=== PATIENT | male | born 1955 | race Caucasian/White ===

== ENCOUNTER 2023-02-14 11:15 | Outpatient (RCR) | payer OTHER, SELFPAY | END 2023-04-21 10:40 | disposition home or self-care (01) | PROVIDERS: PCP Student in an Organized Health Care Education/Training Program; Visit Provider Acupuncturist | DX: I63.9 Cerebral infarction, unspecified (principal); I89.0 Lymphedema, not elsewhere classified; G89.29 Other chronic pain; M79.2 Neuralgia and neuritis, unspecified; I69.359 Hemiplegia and hemiparesis following cerebral infarction affecting unspecified side; R26.81 Unsteadiness on feet; M62.81 Muscle weakness (generalized); R60.0 Localized edema; M79.641 Pain in right hand; M25.511 Pain in right shoulder; Z51.89 Encounter for other specified aftercare | CPT/HCPCS: 92507; 92523; 97110; 97112; 97140; 97161; 97167; 97530; 97535; X5282 ==

== ENCOUNTER 2023-08-11 08:08 | Outpatient (RCR) | payer MEDICARE, BC, SELFPAY ==
[2023-08-11 08:56] LABS: Creatinine* 1.6 mg/dL (0.5-1.5); Est. Creatinine Clearance* 54.14; Estimated Glomerular Filt Rate 46 ml/min
== END 2024-02-07 23:59 | disposition home or self-care (01) ==
LOC: CCIC 08:08
PROVIDERS: Nurse Practitioner; PCP Student in an Organized Health Care Education/Training Program; Referring Provider Student in an Organized Health Care Education/Training Program; Visit Provider Clinical Nurse Specialist
DX: C34.32 Malignant neoplasm of lower lobe, left bronchus or lung (principal)
CPT/HCPCS: 36415; 82565; 99211

== ENCOUNTER 2023-11-19 10:15 | Outpatient (CLI) | payer MEDICARE, BC, SELFPAY ==
--- OUTSIDE RECORDS SUMMARY | 2023-11-22 02:42 | XMS_ITS | Encounter Summary ---
Author Organization [facility] Address [address] [place] [id number] Care Team Providers Care Supervisor Furnace Room Name Role Phone Unavailable Primary Care Provider Unavailabl e Encounter Details Date Type Department Care Team (Late st Contact Info) Description 07/31/2023 Orders Only Department of Radiation Oncology in [place], [place] [address] [place] [id number] Bonita Glover APRN, C.N.P., D.N.P. [address] [place] [address] Malignant Neoplasm Of Lung Lower Lobe Or Bronchus Left (HCC) (Primary Dx) Social History Tobacco Use Types Packs/Day Years Used Date Smoking Tobacco: Every Day Cigarettes 0.8 50.7 Started: 1975 Smokeless Tobacco: Never Alcohol Use Standard Drinks/Week Comments Yes 0 (1 standard drink = 0.6 oz pur e alcohol) 2 drinks/month [facility] Utilities Answer Date Recorded In the past 12 months has e [employer], gas, oil, or water [employer] threatened to shut off services in your [...] your living situation today? I have a [facility] place to live 07/28/2023 Sex and Gender [...]
--- OUTSIDE RECORDS SUMMARY | 2023-11-22 02:42 | XMS_ITS | Encounter Summary ---
Author Organization [facility] Address [address] [place] [address] Care Team Providers Care Enterprise Account Executive Name Role Phone Unavailable Primary Care Provider Unavailabl e Encounter Details Date Type Department Care Team (Late st Contact Info) Description 08/20/2023 Documentation Department of Radiation Oncology in [place], [place] [address] [place] [phone] Kev Hoffmann M.D. [address] [place] [address] Social History Tobacco Use Types Packs/Day Years Used Date Smoking Tobacco: Every Day Cigarettes 0.8 50.7 Started: 1973 Smokeless Tobacco: Never Alcohol Use Standard Drinks/Week Comments Yes 0 (1 standard drink = 0.6 oz pur e alcohol) 2 drinks/month [facility] Utilities Answer Date Recorded In the past 12 months has [employer], gas, oil, or water [employer] threatened to shut off services in your [...] your living situation today? I have a [facility] place to live 07/28/2023 Sex and [...] Left (HCC) Attending Physician: Kev Hoffmann M.D. ([phone]) Treatment Intent: Curative Concomitant Therapy: None Single Plan Treatment Course: [id number] Plan ID Fractions Dose / Fraction (cGy) Dose Treated (cGy) Dose Planned (cGy) First Treatment Last Treatment Elapsed Days [id number] 1000 5000 5000 08/14/2023 08/20/2023 6 Course [...] 3 months. We will schedule CT at [facility]. Dr. Hofmfann will follow up with patient soon after CT has been completed. Signed by: Fidelina Avilez R.N., 08/26/2023 3:57 PM CDT [facility] [address] [place], [place] [id number] documented in this encounter Plan of Treatment Not on file documented as of this encounter Visit Diagnoses Diagnosis Malignant Neoplasm Of Lung Lower Lobe Or Bronchus Left (HCC)- Primary documented in this encounter
--- OUTSIDE RECORDS SUMMARY | 2023-11-22 02:42 | XMS_ITS | Clinical Summary ---
Author Organization [facility] Address [address] [place] [address] Care Team Providers Care Nurse Researcher Name Role Phone Unavailable Primary Care Provider Unavailabl e Source Comments Patient records contain information from all sites at [facility]. For routine questions regarding patient records, call [phone] during business hours, M-F 8:00 AM - 5:00 PM Central Time. Record requests for emergency care only can be directed to [phone] at any time.[facility] Allergies No known active allergies Medications Medication [...] Date Type Department Care Team Description 11/19/2023 Clinical Communication Department of Radiation Oncology in [place], [place] [address] [place] [phone] Jennifer Gaona P.A.-Claudio., M.S. 08/19/2023 10:59 AM CDT - 09/02/2023 7:04 PM CDT Hospital Encounter Department of Radiation Oncology in [address] [address] Kev Hoffmann M.D. Malignant Neoplasm Of Lung Lower Lobe Or Bronchus Left (HCC) from Last 3 Months Family History Medical [...] 0.6 oz pur e alcohol) 2 drinks/month [facility] Utilities Answer Date Recorded In the past 12 months has [employer], [employer], oil, or water [employer] threatened to shut off services in your [...] your living situation today? I have a [facility] place to live 07/28/2023 Sex and [...] T Respiratory Rate 20 04/14/2011 6:10 PM DIRECTOR PROSPECT Oxygen Saturation - - Inhaled Oxygen Concentration - - Weight 107 kg (235 lb 14.3 oz) 08/11/2023 10:13 AM CDT Height - - Body Mass Index - - Plan of Treatment Health Maintenance Due Date [...] Additional history exists Potassium Level 11/05/2024 11/06/2023, 09/25, 06/26/2023, Additional history exists Fasting Glucose for [...] CT BODY Routine 11/12/2023 11:10 AM CDT HXZZORDERS Routine 08/14/2011 2:46 PM [...] System IMG CT PROCEDURES Performing Organization Address City/[facility]/ZIP Co de Phone Number IIWA NA * HXZZORDERS (08/14/2011 2:46 PM CDT) HXHep C Ab-Brandywine Negative Negative POWERCHART Comment: Ouhbam-tz-rkyyrt ratio is <1.00. Test Performed by: [place] [address] Java Sdet: Octavio Harris III, M.D. Blood 08/14/2011 2:46 PM CDT Maria E Gutierres P.A.-C. LAB HISTORICAL O RDERS Performing Organization Address [facility] Co de Phone Number POWERCHART * CT Abdomen without IV Contrast (07/27/2006 4:40 AM CDT) Anatomical Region Laterality Modality Abdomen N/A Computed Tomogra phy 07/27/2006 4:40 AM CDT Narrative 07/27/2006 4:40 AM CDT Originally Signed By Contributor_system, [facility]_HX_RAD_SYS INDICATION: ??Right abdominal back pain. CT [...] Vic Edmonds - 07/31/2016 Originally Signed By Contributor_system, [facility]_SYS INDICATION: Right abdominal back pain. CT OF THE ABDOMEN AND PELVIS - 07/27/06: Noncontrast CT of the abdomen and pelvis is negative for renal or ureteral stones. A normal appendix is identified. There are aortoiliac vascular calcifications. Examination is otherwise unremarkable. REPORT SIGNATURE ON FILE 07/30/2006 Reported By: Neymar Graham M.D. Signed By: Neymar Graham MD Transcribed: 07/28/2006 ([id number]) [email or web address].AL CC: Marko Foster MD Historical Provider IMG CT PROCEDURES from Last 3 Months or Most Recently Relevant to Health Maintenance
--- OUTSIDE RECORDS SUMMARY | 2023-11-22 02:42 | XMS_ITS ---
Author Organization [facility] Address [address] [place] [address] Care Team Providers Care Hook And Eye Attacher Name Role Phone Unavailable Unavailable Unavailable Surgery Details Not on file Complications Check Surgery Details section. Procedure Estimated Blood Loss Check Surgery Details section. Procedure Findings Check Surgery Details section. Procedure Specimens Taken Check Surgery Details section.
--- OUTSIDE RECORDS SUMMARY | 2023-11-22 02:42 | XMS_ITS | Clinical Summary ---
Author Organization [facility] Address [address] [place] [address] Phone Care Team Providers Care Manager Market Intelligence Name Role Phone Dorinda Washington DO Primary Care Provider [phone] Encounters Date Type Department Care Team Description 09/22/2023 Documentation Only [facility] [place] [address] [place] [address] No, Pcp from Last 3 Months [...] [facility] [place] [address] [place] [address] Feliciano Soria MD [address] [facility] [phone] Health Maintenance Due Date Last Done Comments [...] CDT) Glycosylated Hemoglobin a1C 6.9(H) <5.7 % [facility] Estimated Average Glucose 151(H) <117 mg/dL [facility] 07/03/2018 9:46 AM CDT Magdaleno Ernst MD LAB BLOOD ORDERABLES [facility] from Last 3 Months or Most Recently Relevant to Health Maintenance Care Teams Manager Market Intelligence Relationship Specialty Start Date End Date Dorinda Washington DO [address] [place] [address] PCP - General Family Medicine 09/22/23
--- OUTSIDE RECORDS SUMMARY | 2023-11-22 02:42 | XMS_ITS | Encounter Summary ---
Author Organization [facility] Address [address] [place] [address] Care Team Providers Care Tapper Shank Name Role Phone Unavailable Primary Care Provider Unavailabl e Reason for Referral * Outpatient (Routine) - Authorized Specialty Diagnoses / Procedures Referred By Laila t Referred To Contact Radiation Oncology Jennifer Gaona P.A.-C., M.SKenyatta [address] [place] [phone] Kev Hoffmann M.D. [address] [place] [phone] Referral ID Status Reason Start Date Expiration Date V isits Requested Visits Authorized [id number] Authorized 11/19/2023 05/20/2025 [address] chest prior at [facility] [place] [facility] in [place]; need appointments at the end of January prior to patient's planned travel in early February * MRI/CAT/PET Scan (Routine) - Authorized Specialty Diagnoses / Procedures Referred By Contcarlos t Referred To Contact Radiology Diagnoses Malignant Neoplasm Of Lung Lower Lobe Or Bronchus Left (HCC) Procedures CT Chest without IV Contrast Jennifer Gaona P.A.-C., M.S. [address] [place] [address] [facility] Referral ID Status Reason Start Date Expiration Date V isits Requested Visits Authorized [id number] Authorized 11/19/2023 11/18/2024 1 1 Encounter Details Date Type Department Care Team (Late st Contact Info) Description 11/19/2023 Clinical Communication Department of Radiation Oncology in [place], [place] [address] [place] [phone] Jennifer Gaona P.A.-C., M.S. [address] [place] [address] Social History Tobacco Use Types Packs/Day Years Used Date Smoking Tobacco: Every Day Cigarettes 0.8 50.7 Started: 1975 Smokeless Tobacco: Never Alcohol Use Standard Drinks/Week Comments Yes 0 (1 standard drink = 0.6 oz pur e alcohol) 2 drinks/month [facility] Utilities Answer Date Recorded In the past 12 months has [employer], [employer], oil, or water [employer] threatened to shut off services in your [...] your living situation today? [facility] a [facility] to live 07/28/2023 Sex and Gender Information Value Date Recorded Sex Assigned at Male 07/28/2023 10:23 AM CDT Gender Identity Male 07/28/2023 10:23 AM CDT Sexual Orientation Not on file documented as of this encounter Miscellaneous Notes * Telephone Encounter - Jennifer Gaona P.A.-C., M.S. - 11/19/2023 3:15 PM CDT The patient was scheduled for a visit here today; however, we received notification that he was being admitted for stroke evaluation. His , Gracia, still wanted to receive an update regarding the patient's lung cancer. I called her today and spoke to her directly (authorization is on file). I reviewed that his current evaluation takes priority over our scheduled visit. We discussed his recent CT chest report that demonstrated decreased conspicuity/size of the left lower lobe pulmonary nodule,now measuring 7 mm compared to [address] Hoffmann has reviewed this as well and we discussed that this is a good result following SBRT at this time. We discussed the option of re-scheduling our visit after the patient's admission, but she was unsure if they would want to re-schedule now or just wait until the next visit. If they decide to re-schedule, she will call our clinic. Otherwise, we discussed Dr. Hoffmann's recommendation for another CT chest without IV contrast to be done in 3 months.We will order for the imaging to be done at [facility] [place] [facility] in [place]. We will also order for a return visit to be scheduled here following the imaging to review the result. She asked for the next visits to be scheduled at the end of January as they have travel planned in early February. Gracia will review this information with Mr. He and they will contact us back with any further questions, concerns, or to re- schedule his visit. She verbally expressed her understanding of the plan. I wis hed Mr. He well with his current medical condition. I also reviewed this information with Dr. Hoffmann who was in agreement. Jennifer Gaona P.A.-C., M.S. documented in this encounter Plan of Treatment Scheduled Orders Name Type Priority Associated Diagnoses Orde r Schedule CT Chest without IV Contrast Imaging RAD - Routine (most inpatients and all outpatients) Malignant Neoplasm Of Lung Lower Lobe Or Bronchus Left (HCC) Expected: 02/16/2024, Expires: 02/17/2025 Scheduled Referrals Name Type Priority Associated Diagnoses Orde r Schedule Radiation Oncology office visit (clinic) Outpatient Referral Routine Expected: 02/17/2024, Expires: 02/17/2025 documented as of this encounter Visit Diagnoses Diagnosis Malignant Neoplasm Of Lung Lower Lobe Or Bronchus Left (HCC)- Primary documented in this encounter
--- OUTSIDE RECORDS SUMMARY | 2023-11-22 02:42 | XMS_ITS | Encounter Summary ---
Author Organization [facility] Address [address] [place] [address] Care Team Providers Care Disc Pad Grinding Machine Feeder Name Role Phone Unavailable Primary Care Provider Unavailabl e Encounter Details Date Type Department Care Team (Latest Contact Info) Description 08/18/2023 11:05 AM CDT - 08/18/2023 11:59 PM CDT Hospital Encounter Department of Radiation Oncology in [place], [place] [address] [place] [phone] Kev Hoffmann M.D. [address] [place] [address] Discharge Disposition: Home or Self Care Social History Tobacco Use Types Packs/Day Years Used Date Smoking Tobacco: Every Day Cigarettes 0.8 50.7 Started: 1975 Smokeless Tobacco: Never Alcohol Use Standard Drinks/Week Comments Yes 0 (1 standard drink = 0.6 oz pur e alcohol) 2 drinks/month [facility] Utilities Answer Date Recorded In the past 12 months has [employer], oil, or water [employer] threatened to shut off services in your [...] your living situation today? I have a [facility] place to live 07/28/2023 Sex and [...]
--- OUTSIDE RECORDS SUMMARY | 2023-11-22 02:42 | XMS_ITS ---
Author Organization [facility] Address [address] [place] [address] Care Team Providers Care Utilization Management Um Nurse Name Role Phone Unavailable Primary Care Provider [...] Treated Prescribed Fraction Dose Prescribed Total Dose [id number] 08/20/2023 6 5 of 5 1,000 cGy 5,000 cG y Reference Point Last Treated On Elapsed Days Session Dose Total Dose [id number] 08/20/2023 6 1,000 cGy 5,000 cGy
--- OUTSIDE RECORDS SUMMARY | 2023-11-22 02:42 | XMS_ITS | Encounter Summary ---
Author Organization [facility] Address [address] [place] [address] Care Team Providers Care Watch Dial Stoner Name Role Phone Unavailable Primary Care Provider Unavailabl e Reason for Referral * Outpatient (Routine) - Authorized Specialty Diagnoses / Procedures Referred By Laila t Referred To Contact Radiation Oncology Kev Hoffmann M.D. 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 [address] [place] [address] [facility] Region Referral ID Status Reason Start Date Expiration Date V isits Requested Visits Authorized [id number] Authorized 07/30/2023 07/29/2024 10 10 Encounter Details Date Type Department Care Team (Latest Contact Info) Description 08/19/2023 10:59 AM CDT - 09/02/2023 7:04 PM CDT Hospital Encounter Department of Radiation Oncology in [place], [place] [address] [place] [address] Kev Hoffmann M.D. 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 I have a [facility] place to live 07/28/2023 Sex [...] 81 mg. 08/14/2022 blood sugar diagnostic strips ([employer] Verio test strips) Dispense item covered by [...] Left (HCC) SUPERVISED BY: Kev Hoffmann M.D. ([id number]) HISTORY OF PRESENT ILLNESS Chato He is a 68 y.o. 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 Patient is receiving SBRT to left lower lung. Treatment Course: 1xLungLowrSBRT Plan ID Fractions Dose / Fraction (cGy) Dose Treated (cGy) Dose Planned (cGy) First Treatment Last Treatment Elapsed Days [id number] 1000 4000 5000 08/14/2023 08/19/2023 5 Course [...] 3 months. We will schedule CT at [facility]. Dr. Hoffmann will follow [...] a CT scan of the chest at [facility] in [place]. He can contact us in the interim with questions or concerns. He verbalized satisfaction with this plan. Signed by: Kev Hoffmann M.D. 09/02/2023 7:03 PM CDT [facility] [address] [place] [address] documented in this encounter Miscellaneous Notes * Addendum Note - Claritza Luna C.NBart - 08/19/2023 12:00 PM CDTEncounter addended by: Claritza Luna C.NBart on: 09/03/2023 8:22 AM Actions taken: Letter [...]
--- OUTSIDE RECORDS SUMMARY | 2023-11-22 02:42 | XMS_ITS | Encounter Summary ---
Author Organization [facility] Address [address] [place] [address] Care Team Providers Care Sliding Joint Maker Name Role Phone Dorinda Washington DO Primary Care Provider [phone] Encounter Details Date Type Department Care Team (Late st Contact Info) Description 09/22/2023 Documentation Only [facility] [address] [place] [address] [address] No, [...] Visit [facility] [address] [place] [address] Feliciano Soria MD [address] [place] [address] documented as of this encounter Visit Diagnoses Not on filedocumented in this encounter Care Teams Sliding Joint Maker Relationship Specialty Start Date End Date Dorinda Washington DO [address] [place] [address] PCP - General Family Medicine 09/22/23 documented as of this encounter
--- OUTSIDE RECORDS SUMMARY | 2023-11-22 02:42 | XMS_ITS | Clinical Summary ---
Author Organization [facility] Address [address] [address] Phone Care Team Providers Care Comic Book Artist Name Role Phone Unavailable Primary Care [...] NEEDED FOR DIZZINESS 06/17/2022 Active HYDROcodone-acetami nophen ([place]) 5-325 MG oral tablet Take 0.5-1 Tablets [...] W/POSSIBLE INTERVENTION; Surgeon: Durga Fernandez MBBS; Location: [facility] Social History Tobacco [...] - 5.6 % 2022 4:23 AM CDT [facility] Estimated Average Glucose 174 mg/dL 2022 4:23 AM CDT [facility] Blood BLOOD SPECIMEN / Unknown Venipuncture / Unknown 2022 3:59 AM CDT 2022 4:07 AM CDT Narrative [facility] - 2022 4:23 AM CDT HGA1C Reference Ranges ??>= 6.5 ?? Diabetes* ??5.7-6.4 ??Impaired glucose tolerance ?? <5.7 ?Normal *In the absence of unequivocal hyperglycemia, results should be confirmed by repeat testing for the diagnosis of diabetes. [place] [employer] 2018 ?? Herman Snow DO EC CHEMISTRY ORDER PAN ABN [facility] [address] [place] [address], [facility] * (ABNORMAL) LIPID PANEL (2022 3:59 AM CDT) [facility] Signature Cholesterol 186 0 - 200 mg/dL 2022 4:29 AM CDT [facility] HDL Cholesterol 40(L) >40 mg/dL 4:29 AM CDT [facility] Non-HDL Cholesterol 146(H) 0 - 130 mg/dL 2022 4:29 AM CDT [facility] Triglycerides 164 <175 mg/dL 2022 4:29 AM CDT [facility] LDL Cholesterol, Calculated 113(H) 0 - 100 mg/dL 2022 4:29 AM CDT [facility] Blood BLOOD SPECIMEN / Unknown Venipuncture / Unknown 2022 3:59 AM CDT 2022 4:15 AM CDT Narrative [facility] - 2022 4:29 AM [...] Snow DO EC CHEMISTRY ORDER PAN ABN [facility] [address] [place] [address], [facility] from Last 3 Months or Most Recently Relevant to Health Maintenance Advance Directives For more information, please contact: [phone] * Full Code (Latest Code Status on File) Date Activated Date Inactivated Comments 08/03/2022 4:23 PM 08/14/2022 3:22 PM * Full Code/Unaddressed Date Activated Date Inactivated Comments 08/03/2022 1:07 PM 08/03/2022 4:23 PM
--- OUTSIDE RECORDS SUMMARY | 2023-11-22 02:42 | XMS_ITS | Encounter Summary ---
Author Organization [facility] Address [address] [place] [address] Care Team Providers Care Dip Filler Name Role Phone Unavailable Primary Care Provider Unavailabl e Encounter Details Date Type Department Care Team (Latest Contact Info) Description 08/20/2023 10:31 AM CDT - 08/20/2023 11:59 PM CDT Hospital Encounter Department of Radiation Oncology in [place], [place] [address] [place] [address] Kev Hoffmann M.D. [address] [place] [address] Discharge Disposition: Home or Self Care Social History Tobacco Use Types Packs/Day Years Used Date Smoking Tobacco: Every Day Cigarettes 0.8 50.7 Started: 1975 Smokeless Tobacco: Never Alcohol Use Standard Drinks/Week Comments Yes 0 (1 standard drink = 0.6 oz pur e alcohol) 2 drinks/month [facility] Utilities Answer Date Recorded In the past 12 months has [employer], oil, or water [employer] threatened to shut off services in your [...] your living situation today? I have a [facility] place to live 07/28/2023 Sex [...]
--- OUTSIDE RECORDS SUMMARY | 2023-11-22 02:42 | XMS_ITS | Referral Summary ---
Author Organization [facility] Address [address] [place] [address] Care Team Providers Care Radiographer Mammographer Name Role Phone Yousuf Bernard MD Primary Care Provider [phone] Abrahan Bower MD Unavailable [phone] Allergies No known active allergies Medications Medication [...] on file Medical Devices Implanted Type Area In Classroom Tutor Device Identifier Shelf Expiration Date Model / Serial / Lot Polaris Ultra [id number] Implanted:Qty : 1 on 10/04/2022 by Abrahan Bower MD at [facility] Right: [employer] [place] [id number] 08/01/2025 [id number] / / [id number] Polaris Ultra 5f X 28cm Implanted:Qty : 1 on 10/04/2022 by Abrahan Bower MD at [facility] Left: [employer] [place] [id number] 08/01/2025 [id number] 40 / / [id number] Explanted Type Area In Classroom Tutor Device Identifier Shelf Expiration Date Model / Serial / Lot Polaris Ultra, 5f X28cm Implanted:Qty: 1 on 09/16/2022 by Abrahan Bower MD at [facility] Explanted:Qty: 1 on 10/04/2022 by Abrahan Bower MD at [facility] Left: [employer] 05/22/2025 [id number] / / [id number] Polaris Ultra, 5f X28cm Implanted:Qty: 1 on 09/16/2022 by Abrahan Bower MD at [facility] Explanted:Qty: 1 on 10/04/2022 by Abrahan Bower MD at [facility] Right: [employer] 05/22/2025 [id number] / / [id number] Procedures Procedure Name Priority Date/Time Associated Diagnosis [...] Bower MD LAB - [facility] Lab [address] Lab (1st floor, no room number) [place] [address], [facility] [phone] * (ABNORMAL) Basic metabolic panel (09/18/2022 12:33 PM CDT) [facility] Sodium 139 136 - 145 mmol/L 09/18/2022 [...] MD LAB - BLOOD ORDERA BLES LABORATORY [facility] Acute Care Lab [address] Lab (1st floor, no room number) [place] [address], [facility] [phone] * Lipid panel (07/12/2020 9:47 AM CDT) [facility] Signature Cholesterol 163 <200 mg/dL 07/12/2020 11:10 AM CDT [facility] Triglycerides 126 <150 mg/dL 07/12/2020 11:05 AM CDT [facility] HDL Cholesterol 42 >39 mg/dL 11:05 AM CDT [facility] LDL Cholesterol Calculated 96 <100 mg/dL 07/12/2020 11:10 AM CDT [facility] Comment:Desirable: <100 mg/d l Non HDL Cholesterol 121 <130 mg/dL 07/12/2020 11:10 AM CDT [facility] Blood 07/12/2020 9:47 AM CDT 07/12/2020 10:33 AM CDT Yousuf Bernard MD LAB - BLOOD ORDERABL ES [facility] [address] [address], [facility] [phone] from Last 3 Months or Most Recently Relevant to Health Maintenance Advance Directives For more information, please contact: [phone] * Full Code (Latest Code Status on File) Date Activated Date Inactivated Comments 09/16/2022 2:18 AM 09/17/2022 2:28 PM All basic an d advanced life-sustaining interventions are performed as appropriate Question Answer Comments Code status determined by: Discussion with patie nt/ legal decision maker Care Teams Radiographer Mammographer Relationship Specialty Start Date End Date Yousuf Bernard MD [facility] [address] [facility] [address] [place] [address] PCP - General Family Medicine 06/16/22 Abrahan Bower MD [address] [facility] [address] [place] [address] Assigned Surgical Provider 10/12/22
--- OUTSIDE RECORDS SUMMARY | 2023-11-22 02:42 | XMS_ITS | Encounter Summary ---
Author Organization [facility] Address [address] [place] [address] Care Team Providers Care Tongue And Groove Machine Setter Name Role Phone Unavailable Primary Care Provider Unavailabl e Encounter Details Date Type Department Care Team (Latest Contact Info) Description 08/14/2023 3:02 PM CDT - 08/14/2023 11:59 PM CDT Hospital Encounter Department of Radiation Oncology in [place], [place] [address] [place] [address] Kev Hoffmann M.D. [address] [place] [address] Discharge Disposition: Home or Self Care Social History Tobacco Use Types Packs/Day Years Used Date Smoking Tobacco: Every Day Cigarettes 0.8 50.7 Started: 1975 Smokeless Tobacco: Never Alcohol Use Standard Drinks/Week Comments Yes 0 (1 standard drink = 0.6 oz pur e alcohol) 2 drinks/month [facility] Utilities Answer Date Recorded In the past 12 months has [employer], oil, or water [employer] threatened to shut off services in your [...] your living situation today? I have a [facility] place to live 07/28/2023 Sex and [...]
--- OUTSIDE RECORDS SUMMARY | 2023-11-22 02:42 | XMS_ITS | Clinical Summary ---
Author Organization [facility] Address [address] [place] [address] Care Team Providers Care Stock Clipper Name Role Phone Yousuf Bernard MD Primary Care Provider [phone] Abrahan Bower MD Unavailable [phone] Allergies No known active allergies Medications Medication [...] this topic Medical Devices Implanted Type Area Paint Trimmer Pipe Bowls Device Identifier Shelf Expiration Date Model / Serial / Lot Polaris Ultra [id number] Implanted:Qty : 1 on 10/04/2022 by Abrahan Bower MD at [facility] Right: [employer] [place] [id number] 08/01/2025 [id number] / / [id number] Polaris Ultra 5f X 28cm Implanted:Qty : 1 on 10/04/2022 by Abrahan Bower MD at [facility] Left: [employer] [place] [id number] 08/01/2025 [id number] / / [id number] Explanted Type Area Paint Trimmer Pipe Bowls Device Identifier Shelf Expiration Date Model / Serial / Lot Polaris Ultra, 5f X28cm Implanted:Qty: 1 on 09/16/2022 by Abrahan Bower MD at [facility] Explanted:Qty: 1 on 10/04/2022 by Abrahan Bower MD at [facility] Left: [employer] 05/22/2025 [id number] / / [id number] Polaris Ultra, 5f X28cm Implanted:Qty: 1 on 09/16/2022 by Abrahan Bower MD at [facility] Explanted:Qty: 1 on 10/04/2022 by Abrahan Bower MD at [facility] Right: [employer] 05/22/2025 [id number] / / [id number] Procedures Procedure Name Priority Date/Time Associated Diagnosis [...] by meter (10/04/2022 10:23 AM CDT) Pathologist [facility] GLUCOSE BY METER POCT 174(H) 70 - 99 mg/dL 10/04/2022 10:29 AM CDT [facility] LABORATORY POC Blood, Capillary BLOOD SPECIMEN / Unknown 10/04/2022 10:23 AM CDT 10/04/2022 10:29 AM CDT Abrahan Bower MD LAB - BEAKER PO CT [facility] LABORATORY POC [facility] Acute Care Lab [address] Lab (1st floor, no room number) [place] [address], [facility] [phone] * (ABNORMAL) Basic metabolic panel (09/18/2022 12:33 [...] Shipley MD LAB - BLOOD ORDERA BLES [facility] Acute Care Lab [address] Lab (1st floor, no room number) [place] [address], [facility] [phone] * Lipid panel (07/12/2020 9:47 AM CDT) Cholesterol 163 <200 mg/dL 07/12/2020 11:10 AM CDT [facility] Triglycerides 126 <150 mg/dL 07/12/2020 11:05 AM CDT [facility] HDL Cholesterol 42 >39 mg/dL 11:05 AM CDT [facility] LDL Cholesterol Calculated 96 <100 mg/dL 07/12/2020 11:10 AM CDT [facility] Comment:Desirable: <100 mg/d l Non HDL Cholesterol 121 <130 mg/dL 07/12/2020 11:10 AM CDT [facility] Blood 07/12/2020 9:47 AM CDT 07/12/2020 10:33 AM CDT Yousuf Bernard MD LAB - BLOOD ORDERABL ES Performing Organization Address City/[facility]/ZIP Co de Phone Number [facility] [address] [place] [address], [facility] [phone] from Last 3 Months or Most Recently Relevant to Health Maintenance Advance Directives For more information, please contact: [phone] * Full Code (Latest Code Status on File) Date Activated Date Inactivated Comments 09/16/2022 2:18 AM 09/17/2022 2:28 PM All basic an d advanced life-sustaining interventions are performed as appropriate Question Answer Comments Code status determined by: Discussion with laurene nt/ legal decision maker Care Teams Stock Clipper Relationship Specialty Start Date End Date Yousuf Bernard MD [facility] [address] [facility] [address] [place], [place] [address] PCP - General Family Medicine 06/16/22 Abrahan Bower MD [address] [facility] [address] [place] [address] Assigned Surgical Provider 10/12/22
--- OUTSIDE RECORDS SUMMARY | 2023-11-22 02:42 | XMS_ITS | Encounter Summary ---
Author Organization [facility] Address [address] [place] [address] Care Team Providers Care Lead Application Architect Name Role Phone Dorinda Washington DO Primary Care Provider [phone] Encounter Details Date Type Department Care Team (Late st Contact Info) Description 03/01/2019 Orders Only [facility] [address] [place] [address] Deborah Peres RN Chronic kidney disease, Stage III (moderate) ([facility]) Social History Tobacco Use Types Packs/Day Years [...] [facility] [address] [place] [address] Feliciano Soria MD [address] [place] [address] documented as of this encounter Visit Diagnoses Diagnosis Chronic kidney disease, Stage III (moderate) documented in this encounter Care Teams Lead Application Architect Relationship Specialty Start Date End Date Dorinda Washington DO [address] [place] [address] PCP - General Family Medicine 09/22/23 documented as of this encounter
--- OUTSIDE RECORDS SUMMARY | 2023-11-22 02:42 | XMS_ITS | Encounter Summary ---
Author Organization [facility] Address [address] [place] [address] Care Team Providers Care Wood Products Manufacturer Name Role Phone Unavailable Primary Care Provider Unavailabl e Encounter Details Date Type Department Care Team (Latest Contact Info) Description 08/19/2023 10:58 AM CDT Hospital Encounter Department of Radiation Oncology in [place], [place] [address] [place] [address] Kev Hoffmann M.D. [address] [place] [address] Discharge Disposition: Home or Self Care Social History Tobacco Use Types Packs/Day Years Used Date Smoking Tobacco: Every Day Cigarettes 0.8 50.7 Started: 1975 Smokeless Tobacco: Never Alcohol Use Standard Drinks/Week Comments Yes 0 (1 standard drink = 0.6 oz pur e alcohol) 2 drinks/month [facility] Utilities Answer Date Recorded In the past 12 months has [employer], gas, oil, or water [employer] threatened to shut off services in your [...] your living situation today? I have a [facility] place to live 07/28/2023 Sex and Gender [...]
--- OUTSIDE RECORDS SUMMARY | 2023-11-22 02:42 | XMS_ITS | Encounter Summary ---
Author Organization [facility] Address [address] [place] [address] Care Team Providers Care Resaw Operator Name Role Phone Unavailable Primary Care Provider Unavailabl e Encounter Details Date Type Department Care Team (Latest Contact Info) Description 08/15/2023 10:01 AM CDT - 08/15/2023 11:59 PM CDT Hospital Encounter Department of Radiation Oncology in [place], [place] [address] [place] [address] Kev Hoffmann M.D. [address] [place] [address] Discharge Disposition: Home or Self Care Social History Tobacco Use Types Packs/Day Years Used Date Smoking Tobacco: Every Day Cigarettes 0.8 50.7 Started: 1975 Smokeless Tobacco: Never Alcohol Use Standard Drinks/Week Comments Yes 0 (1 standard drink = 0.6 oz pur e alcohol) 2 drinks/month [facility] Utilities Answer Date Recorded In the past 12 months has [employer], oil, or water [employer] threatened to shut off services in your [...] your living situation today? I have a [facility] place to live 07/28/2023 Sex [...]
--- OUTSIDE RECORDS SUMMARY | 2023-11-22 02:42 | XMS_ITS | Encounter Summary ---
Author Organization [facility] Address [address] [place] [address] Care Team Providers Care Turkish Line Attendant Name Role Phone Unavailable Primary Care Provider Unavailabl e Encounter Details Date Type Department Care Team (Late st Contact Info) Description 08/20/2023 Clinical Communication Department of Radiation Oncology in [place], [place] [address] [place] [phone] Kev Hoffmann M.D. [address] [place] [address] Social History Tobacco Use Types Packs/Day Years Used Date Smoking Tobacco: Every Day Cigarettes 0.8 50.7 Started: 1975 Smokeless Tobacco: Never Alcohol Use Standard Drinks/Week Comments Yes 0 (1 standard drink = 0.6 oz pur e alcohol) 2 drinks/month [facility] Utilities Answer Date Recorded In the past 12 months has [employer], gas, oil, or water [employer] threatened to shut off services in your [...] your living situation today? I have a [facility] place to live 07/28/2023 Sex [...] (cGy) First Treatment Last Treatment Elapsed Days [id number] 1000 5000 5000 08/14/2023 08/20/2023 6 Course [...] symptoms. They would like a call at [phone] documented in this encounter Plan of Treatment Not on file documented as of this encounter Visit Diagnoses Not on filedocumented in this encounter
--- OUTSIDE RECORDS SUMMARY | 2023-11-22 02:42 | XMS_ITS | Referral Summary ---
Author Organization [facility] Address [address] [place] [address] Care Team Providers Care Spot Man Name Role Phone Unavailable Primary Care Provider Unavailabl e Source Comments Patient records contain information from all sites at [facility]. For routine questions regarding patient records, call [phone] during business hours, M-F 8:00 AM - 5:00 PM Central Time. Record requests for emergency care only can be directed to [phone] at any time.[facility] Encounters Date Type Department Care Team Description 11/19/2023 Clinical Communication Department of Radiation Oncology in [place], [place] [address] [place] [phone] Jennifer Gaona PRosales.-C., M.S. 08/19/2023 10:59 AM CDT - 09/02/2023 7:04 PM CDT Hospital Encounter Department of Radiation Oncology in [address] [address] Kev Hoffmann M.D. Malignant Neoplasm Of Lung Lower Lobe Or Bronchus Left (HCC) from Last 3 Months Allergies No known [...] Recorded In the past 12 months has [employer], gas, oil, or water [employer] threatened to shut off services in your [...] your living situation today? I have a [facility] place to live 07/28/2023 Sex [...] T Respiratory Rate 20 04/14/2011 6:10 PM BIT AND SHANK DEPARTMENT SUPERVISOR Oxygen Saturation - - Inhaled Oxygen Concentration - - Weight 107 kg (235 lb 14.3 oz) 08/11/2023 10:13 AM CDT Height - - Body Mass Index - - Plan of Treatment Not on file Procedures Procedure Name Priority Date/Time Associated Diagnosis [...] System IMG CT PROCEDURES Performing Organization Address [facility] Co de Phone Number [facility] NA * HXZZORDERS (08/14/2011 2:46 PM CDT) HXHep C -Beebe Negative Negative POWERCHART Comment: Akxhya-xl-ngcrgk ratio is <1.00. Test Performed by: [place] [address] Pump Servicer Supervisor: Octavio Harris III, M.D. Blood 08/14/2011 2:46 PM CDT Maria E Gutierres P.A.-C. LAB HISTORICAL O RDERS Performing Organization Address [facility] [[email or web address]] de Phone Number POWERCHART * CT Abdomen without IV Contrast (07/27/2006 4:40 AM CDT) Anatomical Region Laterality Modality Abdomen N/A Computed Tomogra phy 07/27/2006 4:40 AM CDT Narrative 07/27/2006 4:40 AM CDT Originally Signed By Contributor_system, [facility]_HX_RAD_SYS INDICATION: ??Right abdominal back pain. CT OF THE ABDOMEN AND PELVIS - 07/27/06: ??Noncontrast CT of the abdomen and pelvis is negative for renal or ureteral stones. ??A normal appendix is identified. ??There are aortoiliac vascular calcifications. Examination is otherwise unremarkable. REPORT SIGNATURE ON FILE 07/30/2006 Reported By: Neymar Graham M.D. Signed By: Neymar Graham MD Transcribed: 07/28/2006 ([id number]) ??[email or web address].AL CC: Marko Foster ?? Procedure Note ProviderGrey M.D. - 07/31/2016 Originally Signed By Contributor_system, [facility]_HX_RAD_SYS INDICATION: Right abdominal back pain. CT [...]
--- OUTSIDE RECORDS SUMMARY | 2023-11-22 02:42 | XMS_ITS | Encounter Summary ---
Author Organization [facility] Address [facility] [place] [address] Care Team Providers Care Window Draper Name Role Phone Yousuf Bernard MD Primary Care Provider [phone] Abrahan Bower MD Unavailable [phone] Reason for Visit * Reason Onset Date Comments Call Back 10/03/2022 Encounter Details Date Type Department Care Team (Late st Contact Info) Description 10/03/2022 Telephone [facility] [place] [address] [place] [address] Abrahan Bower MD [address] [place] [address] Call Back Social History Tobacco [...] on filedocumented in this encounter Care Teams Window Draper Relationship Specialty Start Date End Date Yousuf Bernard MD [facility] [address] [facility] [address] [place] [address] PCP - General Family Medicine 06/16/22 Abrahan Bower MD [address] [facility] [address] [place] [address] Assigned Surgical Provider 10/12/22 documented as of this encounter
--- OUTSIDE RECORDS SUMMARY | 2023-11-22 02:43 | XMS_ITS | Clinical Summary ---
Author Organization [employer] Address [place], [place] [address] Care Team Providers Care Accounting Coordinator Name Role Phone Dorinda Washington DO Primary Care Provider [phone] Whitney Silva MD Unavailable Raisa White PBX MANAGER Unavailable Faith Donovan RN Unavailable Kennedi Perry RN, BSN, OCN Unavailable Mary Mclean PBX MANAGER Unavailable Unavailable Hina Campbell RN Unavailable Jin Shipley MD Unavailable [phone] Han Bradley MD Unavailable Allergies No known active allergies Medications Medication Sig Dispensed Refills Start Date End Date Status aspirin chewable 81 mg chewable tablet Chew 81 mg by mouth once daily with a meal. 08/15/19 23 Suspended fish oil-omega-3 fatty acids 1,000-340 mg capsule Take 1 g by mouth once daily. Suspended amLODIPine (NORVASC) 10 mg tabletIndications:H TN (hypertension) Take 1 Tablet (10 mg) by mouth once daily. 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 Dispense item covered by pt ins. E11.9 NIDDM type II - Test 3 times/day, Reason: High A1C 100 Each 5 02/12/20 23 Suspended Additional Information allopurinoL (ZYLOPRIM) 100 mg tablet Take 50 mg by mouth once daily. 01/08/20 23 024 Suspended sennosides-docusate (SENOKOT S) (8.6-50 mg) tabletIndications:C hronic constipation Use one tablet daily for constipation; use up to 2 tablets twice daily as needed for worsening of constipation 180 Tablet 3 06/11/19 24 024 Discontinued(Ph armacist change per medication history (E-cancel not sent)) amitriptyline (ELAVIL) 10 mg tabletIndications:N europathic pain,Chronic neck pain Take 1 Tablet (10 mg) by mouth at bedtime. For chronic neuropathic/ chronic pain syndrome. 120 Tablet 3 09/02/19 24 Suspended Additional Information diclofenac topical (Voltaren) 1 % gelIndications:Neur opathic pain,Chronic neck pain Apply 4 g topically to affected area(s) four times daily. 2 g 3 09/02/19 24 024 Discontinued(Ot her - add note to specify (E-cancel not sent)) metFORMIN (GLUCOPHAGE) 500 mg tabletIndications:T ype 2 diabetes mellitus with hyperglycemia, 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) Take 1 Tablet (500 mg) by mouth two times daily with meals. 180 Tablet 3 09/10/19 24 Suspended Additional Information semaglutide (Ozempic) 2 mg/dose (8 mg/3 mL) subcutaneous penIndications:Type 2 diabetes mellitus with diabetic 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, unspecified whether intermediate project manager insulin use (HC) Inject 2 mg subcutaneous once weekly. 3 Pen 3 09/10/19 24 Suspended Additional Information HYDROcodone-acetami nophen (5-325 mg/tablet)Indicatio ns:Neuropathic pain Take one tablet by mouth two times a day as needed for pain. Max acetaminophen dose: 4000 mg in 24 hrs. Rx to last 30 days. use dates: 10/13/2023 - 11/11/2023 60 Tablet 10/13/19 24 024 Discontinued(Re order (E-cancel not sent)) lisinopriL (PRINIVIL; ZESTRIL) 20 mg tabletIndications:H TN (hypertension) Take 1 Tablet (20 mg) by mouth two times daily. Take 1/2 tablet (20 mg) twice daily 180 Tablet 3 10/23/19 24 024 Discontinued(Ph armacist change per medication history (E-cancel not sent)) glipiZIDE extended-release (GLUCOTROL XL) 10 mg Extended-Release tabletIndications:T ype 2 diabetes mellitus with diabetic 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, 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) Take 2 Tablets (20 mg) by mouth once daily before a meal. 180 Tablet 1 10/23/19 Suspended Additional Information medication order composer Enzymedica Digestive Enzyme: 1 capsule po daily. Mitocore: 2 tablets po daily. Garden of Life Probiotic 30 billion: 1 capsule po daily. 10/28/19 Suspended HYDROcodone-acetami nophen (5-325 mg/tablet)Indicatio ns:Neuropathic pain Take one tablet by mouth two times a day as needed for pain. Max acetaminophen dose: 4000 mg in 24 hrs. Rx to last 30 days. use dates: 11/12/23-12/11/23 60 Tablet 11/10/19 24 024 Discontinued(Ph armacist change per medication history (E-cancel not sent)) naloxone (NARCAN) 4 mg/actuation nasal sprayIndications:En counter for therapeutic drug monitoring Inhale 1 [place] into affected nostril(s) each time if needed for Patient Diff To Arouse or Resp Rate < 8 / min. Additional doses may be given every 2 to 3 minutes until emergency medical assistance arrives. 2 Each 11/10/19 24 Suspended Additional Information atorvastatin (LIPITOR) 80 mg tabletIndications:L eft sided cerebral hemisphere cerebrovascular accident (CVA) (HC) TAKE 1 TABLET(80 MG) BY MOUTH EVERY DAY WITH THE EVENING MEAL 90 Tablet 2 11/16/19 24 Suspended Additional Information blood sugar diagnostic (OneTouch Verio test strips) stripIndications:Ty pe 2 diabetes mellitus with diabetic 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, 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) Dispense item covered by pt ins. E11.9 NIDDM type II - Test 3 times/day, Reason: High A1C 300 Each 3 11/17/19 24 Suspended Additional Information lidocaine, anorectal, 5% topical 5 % creamIndications:Ch ronic pain of both shoulders Apply topically to affected area(s) 2 times daily if needed (bilateral shoulder pain). 15 g 11/17/19 24 024 Discontinued(Ph armacist change per medication history (E-cancel not sent)) HYDROcodone-acetami nophen (5-325 mg/tablet) Take 2 Tablets by mouth at bedtime. Max acetaminophen dose: 4000 mg in 24 hrs. Suspended lisinopriL (PRINIVIL; ZESTRIL) 20 mg tablet Take 20 mg by mouth once daily. Suspended sennosides-docusate (Senna-S) (8.6-50 mg) tablet Take 2 Tablets by mouth once daily. Suspended Hospital, Clinic, or Other Facility Administered Medication Ordered Dose Route Frequency Start Date End Date Status onabotulinumtoxinA (BOTOX) injection 100 unitIndications:Spasticity as late effect of cerebrovascular accident (CVA) 100 unit IM ONE TIME 11/17/2023 11/17/2023 Ended Active Problems Problem Noted Date Diagnosed Date Carotid artery stenosis with cerebral infarction 11/20/2023 Right sided weakness 11/20/2023 Acute CVA (cerebrovascular accident) 11/20/2023 Malignant neoplasm of lower lobe of left [...] Encounters Date Type Department Care Team Description 11/21/2023 Orders Only [facility] [address] [place] [address] Estephania Hays PA <No scans attached> 11/20/2023 8:12 PM CDT - Present Hospital Encounter [facility] [address] [place] [address] [facility], [facility] Hospitalists Of Zach Doty MD Shankar, Nisha, MBBS Acute CVA (cerebrovascular accident) (HC) (Primary Dx); Right sided weakness; Carotid artery stenosis with cerebral infarction (HC); Malignant neoplasm of lower lobe of left lung (HC) 11/20/2023 4:00 PM CDT Ancillary Procedure [facility] [address] [place] [address] Arrived 11/20/2023 Telephone [facility] [address] [place] [address] Dorinda Washington DO Lab (Need Order: potassium) 11/20/2023 Office Visit [facility] [address] [place] [address] Supriya Stevens DO Telehealth ([place] stroke follow up/) 11/20/2023 Telephone [facility] [address] [place] [address] Sir Washingtoni Beth, DO Refill Request (Lisinopril) 11/19/2023 Orders Only [facility] Scanner 1 scan: (1-Ord) [facility], CT HEAD/BRAIN WO, 11/19/2023 11/19/2023 Office Visit [facility] [address] [facility] [address] [place] [phone] Treat, Supriya Akers DO Telehealth ([place] stroke code ) 11/19/2023 Telephone [facility] [address] [facility] [address] Dorinda Washington Beth, DO Refill Request (Lisinopril) 11/18/2023 1:00 PM CDT Patient Outreach [facility] [address] [place] [address] Faith Donovan RN Diabetes (Follow-up) 11/18/2023 Refill [facility] [address] [place] [address] Dorinda Washington Beth, DO Refill Request (Lisinopril 20mg) 11/17/2023 3:56 PM CDT - 11/17/2023 11:59 PM CDT Hospital Encounter [facility] [address] [place] [address] Jacob Lemons MD 11/17/2023 11:00 AM CDT Procedure Only [facility] [address] [facility] [address] [place] [address] Jacob Lemons MD Procedure (Botox ) 11/17/2023 Travel 11/13/2023 Refill [facility] [address] [facility] [address] Sir Washingtoni Beth, DO Refill Request (Atorvastatin) 11/12/2023 11:00 AM CDT Ancillary Procedure [facility] [address] [place] [address] 11/12/2023 Travel 11/10/2023 Refill [facility] [address] [place] [address] Ravin Saini NP Refill Request (Hydrocodone 5/325 mg) 11/07/2023 2:40 PM CDT Office Visit [facility] [address] [facility] [place] [address] Nicole Bowles, TY Follow Up 11/06/2023 2:30 PM CDT Orders Only [facility] [address] [facility] [address] [place], [place] Lab 11/06/2023 Travel 11/04/2023 Travel 10/28/2023 1:20 PM CDT Telemedicine [facility] [address] [place] [phone] Ross Cardenas MD Telehealth; Consult (Smoking cessation) 10/27/2023 Travel 10/23/2023 12:55 PM CDT Office Visit [facility] [address] [facility] [place] [address] Dorinda Washington Beth, DO Preoperative Exam (11/05/23 - R shoulder surgery - ANW - Dr. Clark ); Medication Management (Discuss increase in Ozempic) 10/23/2023 Travel 10/22/2023 Refill [facility] [address] [place] [address] Sir Washingtoni Beth, DO Refill Request (Lisinopril) 10/13/2023 Refill [facility] [address] [place] [address] Mary Mclean NP Refill Request 09/25/2023 Orders Only [facility] [address] [facility] [place] [address] Padmini Dorinda Beth, DO Outside Order (Ordered by Meena Prado... 09/18/2023 11:00 AM CDT Office Visit [place] [address] [facility] [address] [facility] [place] [address] Whitney Silva MD Follow Up (Primary cancer of left lower lobe of lung (HC)//) 09/18/2023 Travel 09/12/20[address] E-[address] [facility] [address] [facility] [place] [address] Norah Vick, DeepaliD 09/10/2023 10:35 AM CDT Office Visit [facility] [address] [facility] [address] Shaqra, Dorinda Beth, DO Diabetes (68 Year Old male. medication refill) 09/10/2023 Travel 09/08/2023 Orders Only [facility] [address] [place] [address] Shaqra, Dorinda Beth, DO <No scans attached> 09/06/2023 Refill [facility] [address] [facility] [address] Shaqra, Dorinda Beth, DO Refill Request (Metformin) 09/02/2023 3:15 PM CDT Orders Only [facility] [address] [place] [address] Lab 09/02/2023 2:30 PM CDT Office Visit [facility] [address] [place] [address] Mary Mclean NP Follow Up (3 month follow up. Chronic pain- neuropathy. Last took hydrocodone last night at 2am.) 09/02/2023 Travel 08/29/2023 Refill [facility] [address] [place] [address] Shaqra, Dorinda Beth, DO Refill Request (Ozempic) from Last 3 Months Immunizations Name Administration Dates Next Due COVID-19 VACCINE COMIRNATY ( PFIZER-BIONTTrivop 30MCG/0.3ML) 12YO+ PFS 2023 COVID-19 vaccine (Pfizer-Bio NTech 30mcg/0.3mL) 12YO+ BIVALENT PF, MDV 09/04/2022 [...] Sign Reading Time Taken Comments Blood Pressure 149/104 11/22/2023 12:45 AM CDT Pulse 94 11/22/2023 12:45 AM CDT Temperature 36.8 ??C (98.2 ??F) 11/22/2023 12:45 AM C DT Respiratory Rate 16 11/22/2023 12:45 AM CDT Oxygen Saturation 96% 11/22/2023 12:45 AM CDT Inhaled Oxygen Concentration - - Weight 100 kg (220 lb 8 oz) 11/21/2023 6:00 AM C DT Height 195.6 cm (6' 5) 07/17/2023 8:46 AM CDT Body Mass Index 26.15 07/17/2023 8:46 AM CDT Plan of Treatment Upcoming Encounters Date Type Department Care Team (Latest Contact Info) Description 11/25/2023 11:30 AM CDT Orders Only [facility] [address] [facility] [address] [place] 12/02/2023 1:00 PM CDT Office Visit [facility] [address] [place] [address] Zaira Rendon NP [address] [place] [address] 12/05/2023 11:25 AM CDT Nurse/Clinic Staff Only [facility] [address] [place] [address] 12/10/2023 11:45 AM CDT Orders Only [facility] [address] [place] [address] [place] 12/10/2023 12:55 PM CDT Office Visit [facility] [address] [facility] [place] [address] Dorinda Washington, DO [address] [facility] [address] 12/11/2023 2:10 PM CDT Nurse/Clinic Staff Only [facility] [address] [place] [address] 12/22/2023 11:00 AM CDT Ancillary Procedure [facility] [address] [place] [address] 12/25/2023 3:20 PM CDT Telemedicine [facility] - [address] [place] [address] [place] [address] [place] [address] [address] [place] [address] 12/26/2023 1:00 PM CDT Office Visit [facility] [address] [place] [address] Nicole Bowles, OD [address] [place] [address] 12/30/2023 11:00 AM INSPECTOR PACKAGER Preop Visit [facility] [address] [place] [address] Dorinda Washington DO [address] [place] [address] 01/08/2024 2:00 PM INSPECTOR PACKAGER Office Visit [facility] [place] [facility] [address] [place] [address] Fortino Frazier MD [address] [facility] [address] [place] [address] 01/14/2024 8:45 AM INSPECTOR PACKAGER Hospital Encounter [facility] [address] [place] [address] [place] [address] [facility] [address] [place] [address] 01/14/2024 8:45 AM INSPECTOR PACKAGER - 01/14/2024 11:49 AM INSPECTOR PACKAGER Surgery [facility] [address] [place] [address] [place] [address] [place] [address] RIGHT TOTAL SHOULDER ARTHROPLASTY 02/12/2024 1:00 PM INSPECTOR PACKAGER Office Visit [facility] [address] [facility] [address] [place] [address] [place] [address] [place], [place] [address] 02/16/2024 12:45 PM INSPECTOR PACKAGER Orders Only [facility] [address] [facility] [address] [place] 02/23/2024 1:00 PM INSPECTOR PACKAGER Office Visit [facility] [address] [place] [address] Whitney Silva MD [address] [place] [address] Scheduled Procedures Name Priority Associated Diagnoses Date/Ti me ARTHROPLASTY SHOULDER Elective GLENOHUMERAL JOINT OSTEOARTHRITIS 01/14/2024 8:45 AM INSPECTOR PACKAGER ARTHROPLASTY REVERSE SHOULDER Elective GLENOHUMERAL JOINT OSTEOARTHRITIS 01/14/2024 8:45 AM INSPECTOR PACKAGER SURGICAL PROCEDURE (TYPE PROCEDURE DESCRIPTION BELOW) Primary [...] 07/17/2023, 02/19/2023, 09/19/2022 Lipids for age 45-75 11/20/2028 11/21/2023, 02/05/20 Tetanus booster 02/04/2033 02/04/2023, 01/10/1971 Pneumococcal series for age 65+ Completed , 03/07/2021 Zoster (shingles) series for age 50+ Completed 01/17/2023, 11/08/2022 Hepatitis C screening for ag e 18-79 Completed 02/04/2023 Tdap Completed 02/04/2023 AAA screening age 65-74 Completed 02/21/2023 Procedures The patient is currently admitted. The information in this section might not be complete until the patient is discharged. Procedure Name Priority Date/Time Associated Diagnosis Comments SCAN-CARDIAC STRIP 11/22/2023 12 :31 AM CDT GLUCOSE METER Timed 11/21/2023 9:50 PM CDT GLUCOSE METER Timed 11/21/2023 5:02 PM CDT GLUCOSE METER Timed 11/21/2023 11:01 AM CDT BASIC METABOLIC PANEL Early AM 11/21/2023 7:38 AM CDT CBC W PLT NO DIFF Early AM 11/21/2023 7:3 8 AM CDT HEMOGLOBIN A1C Early AM 11/21/2023 7:38 AM CDT LIPID PANEL Early AM 11/21/2023 7:38 AM CDT GLUCOSE METER Timed 11/21/2023 7:09 AM CDT SCAN-CARDIAC STRIP 11/21/2023 1: 02 AM CDT CBC W PLT NO DIFF Today 11/20/2023 10: 48 PM CDT BASIC METABOLIC PANEL Today 11/20/2023 10:48 PM CDT GLUCOSE METER Timed 11/20/2023 10:45 PM CDT SCAN-CARDIAC STRIP 11/20/2023 9: 03 PM CDT ECHO TTE COMPLETE WO CONTRAST Routine 11/20/2023 1:35 PM CDT Cerebrovascular accident (CVA) (HC) SCAN-CT INTERPRETATION 12:[address] CHEST W Routine 11/12/2023 12:03 PM CDT Malignant neoplasm of lower lobe, left bronchus or lung (HC) POTASSIUM Routine 11/06/2023 2:36 PM CDT Serum potassium elevated EKG 12 LEAD UNIT PERFORMED Routine 10/29/2023 1:58 PM CDT Pre-op exam MO READING EKG - NO CHARGE, COMP ONLY [...] diabetes mellitus with diabetic 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, unspecified whether nursing home insulin use (HC) HEMOGLOBIN A1C MONITORING (POCT) Routine 09/10/2023 10:36 AM CDT Type 2 diabetes mellitus with diabetic 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, unspecified whether nursing home insulin use (HC) COMPLIANCE DRUG ANALYSIS Routine 09/02/2023 3:19 PM CDT Encounter for therapeutic drug monitoring US ABD AORTA SCREENING Routine 10:11 AM INSPECTOR PACKAGER Screening for AAA (aortic abdominal aneurysm) ANTI HCV Routine 02/04/2023 11:56 AM INSPECTOR PACKAGER Need for hepatitis C screening test from Last 3 Months or Most Recently Relevant to Health Maintenance Results * SCAN-CARDIAC STRIP (11/22/2023 12:31 AM CDT) Scanner OTHER * (ABNORMAL) GLUCOSE METER (11/21/2023 9:50 PM CDT) Only the most recent of5 resultswithin the time period is included. GLUCOSE METER 139(H) 65 - 100 mg/dL 11/21/2023 10:00 PM CDT [facility] Blood BLOOD SPECIMEN / Unknown 11/21/2023 9:50 PM CDT 11/21/2023 10:00 PM CDT Kira SHARMA CHEMISTRY Performing Organization Address [facility] Co de Phone Number [facility] [address] [place] [address], * (ABNORMAL) Hemoglobin A1C Screening (11/21/2023 7:38 AM CDT) HEMOGLOBIN A1C SCREENING 8.6(H) <=6.4 % 11/21/2023 3:20 PM CDT [facility] Blood BLOOD SPECIMEN / Unknown Butterfly / Unknown 11/21/2023 7:38 AM CDT 11/21/2023 8:04 AM CDT Narrative [facility] - 11/21/2023 3:20 PM CDT ? (<5.7%) ?Normal ? (5.7% to 6.4%) ? Indicates prediabetes ? (>=6.5%) ? Confirms diabetes Falsely low levels may be seen with: Recent Transfusion, Recent Significant Blood Loss, Hemolytic Diseases, or Falsely elevated levels may be seen with: Untreated Anemias, Splenectomy Ernsetina Stevenson MD CHEMISTRY Performing Organization Address [facility] Co de Phone Number [facility] [address] [place] [address], * (ABNORMAL) CBC no diff AM (11/21/2023 7:38 AM CDT) Only the most recent of2 resultswithin the time period is included. WHITE BLOOD COUNT 5.8 4.5 - 11.0 thou/cu mm 11/21/2023 9:07 AM T [facility] RED BLOOD COUNT 3.67(L) 4.30 - 5.90 mil/cu mm 11/21/2023 9:07 AM T [facility] HEMOGLOBIN 11.2(L) 13.5 - 17.5 g/dL 11/21/2023 9:07 AM T [facility] HEMATOCRIT 33.2(L) 37.0 - 53.0 % 11/21/2023 9:07 AM CDT [facility] MCV 91 80 - 100 fL 11/21/2023 9:07 AM T [facility] MCH 30.5 26.0 - 34.0 pg 11/21/2023 9:07 AM [facility] MCHC 33.7 32.0 - 36.0 g/dL 11/21/2023 9:07 AM [facility] RDW 12.2 11.5 - 15.5 % 11/21/2023 9:07 AM T [facility] PLATELET COUNT 160 140 - 440 thou/cu mm 11/21/2023 9:07 AM T [facility] MPV 11.9(H) 6.5 - 11.0 fL 11/21/2023 9:07 AM [facility] NRBC 0.0 % 11/21/2023 9:07 AM T [facility] ABS NRBC 0.0 thou /cu mm 11/21/2023 9:07 AM [facility] Blood BLOOD SPECIMEN / Unknown Butterfly / Unknown 11/21/2023 7:38 AM CDT 11/21/2023 8:04 AM CDT Ernestina Stevenson MD HEMATOLOGY [facility] [address] [place] [address], * (ABNORMAL) Lipid Panel (11/21/2023 7:38 AM CDT) CHOLESTEROL,TOTAL 93(L) 100 - 199 mg/dL 11/21/2023 8:33 AM CDT [facility] Comment: Cholesterol, Total Reference Ranges Desirable <200 mg/dL Borderline 200-239 mg/dL High >=240 mg/dL TRIGLYCERIDES 123 <150 mg/dL 11/21/2023 8:33 AM CDT [facility] HDL CHOLESTEROL 45 >40 mg/dL 8:33 AM CDT [facility] NON-HDL CHOLESTEROL 48 <145 mg/dl 11/21/2023 8:33 AM CDT [facility] CHOL/HDL RATIO 2.07 <4.50 11/21/2023 8:33 AM CDT [facility] LDL CHOLESTEROL 23 <=130 mg/dL 11/21/2023 8:33 AM CDT [facility] VLDL CHOLESTEROL 25 <=30 mg/dL 11/21/2023 8:33 AM T [facility] PROVIDER ORDERED STATUS RANDOM 11/21/2023 8:33 AM T [facility] Blood BLOOD SPECIMEN / Unknown Butterfly / Unknown 11/21/2023 7:38 AM CDT 11/21/2023 8:04 AM CDT Ernestina Stevenson MD CHEMISTRY [facility] [address] [place] [address], * (ABNORMAL) Basic metabolic panel AM (11/21/2023 7:38 AM CDT) Only the most recent of2 resultswithin the time period is included. SODIUM 141 136 - 145 mmol/L 11/21/2023 8:33 AM CDT [facility] POTASSIUM 3.8 3.5 - 5.1 mmol/L 11/21/2023 8:33 AM CDT [facility] CHLORIDE 108(H) 98 - 107 mmol/L 11/21/2023 8:33 AM CDT [facility] CO2,TOTAL 21(L) 22 - 29 mmol/L 11/21/2023 8:33 AM CDT [facility] ANION GAP 12 5 - 18 11/21/2023 8:33 AM CDT [facility] GLUCOSE 98 70 - 99 mg/dL 11/21/2023 8:33 AM CDT [facility] CALCIUM 9.2 8.8 - 10.2 mg/dL 11/21/2023 8:33 AM T [facility] BUN 24(H) 8 - 23 mg/dL 11/21/2023 8:33 AM T [facility] CREATININE 1.60(H) 0.70 - 1.20 mg/dL 11/21/2023 8:33 AM T [facility] BUN/CREAT RATIO 15 10 - 20 8:33 AM T [facility] eGFR 46(L) >90 mL/min/1.7 3m2 11/21/2023 8:33 AM T [facility] Comment:As of 2021, eG FR is calculated by the CKD-EPI creatinine equation without race adjustment. ??eGFR can be influenced by muscle mass, exercise, and diet. ??The reported eGFR is an estimation only and is only applicable if the renal function is stable. Blood BLOOD SPECIMEN / Unknown Butterfly / Unknown 11/21/2023 7:38 AM CDT 11/21/2023 8:04 AM CDT Ernestina Stevenson MD CHEMISTRY [facility] [address] [place] [address], * SCAN-CARDIAC STRIP (11/21/2023 1:02 AM CDT) Scanner OTHER * SCAN-CARDIAC STRIP (11/20/2023 9:03 PM CDT) Scanner OTHER * ECHO TTE COMPLETE WO CONTRAST (11/20/2023 1:35 PM CDT) AORTIC VALVE MEAN PG 5 mmHg EJECTION FRACTION 64 % PEAK TR VELOCITY 2.4 m/s LVEDD 4.9 cm EJECTION FRACTION 60 - 65% Anatomical Region Laterality Modality Ultrasound 11/20/2023 12:5 7 PM CDT Narrative 11/20/2023 2:24 PM CDT ECHOCARDIOGRAM CHATO HE ? Accession#: ?? [id number] : ?1955 68 years Study Date: ?? 11/20/2023 12:57:15 PM Gender: M ?BP: ? 155/99 mmHg Height: 196.00 cm ?BSA: ?2.38 m? ? ? Weight: 105.00 kg ?Tech: ? MCK ? Referring MD: ZENOBIA HERNANDEZ Site: ? [facility] Reading Location: [facility] Patient Location: Inpatient. Procedure: 2D, Color Doppler and Spectral Doppler. Indication for study: CVA Cardiac Rhythm: Regular and normal sinus.Study quality: Fair. Imaging limitations: This study was subject to imaging limitations due to body habitus and a prominent lung artifact. Final Impressions: 1. Normal LV size, normal wall thickness, normal global systolic function with an estimated EF of 60 - 65%. 2. Right ventricular cavity size is normal, global systolic RV function is normal. 3. No significant valve disease detected. Chamber Sizes and Function Normal left ventricular size, normal wall thickness, normal global systolic function with an estimated EF of 60 - 65%. Left atrial size is normal. Right ventricular cavity size is normal, global systolic RV function is normal. RV wall thickness is normal. The right atrium is normal. Right atrial volume index is 17 ml/m? ? ?. Right atrial area is 14 cm? ? ?. The pulmonary artery is not well visualized. The sinus of Valsalva is normal sized. The ascending aorta is not well visualized. Valves, RV Pressures and Diastolic Function The aortic valve is trileaflet and sclerotic, no stenosis and trivial regurgitation. The mitral valve is normal in structure, trace mitral regurgitation. Indeterminate pattern of LV diastolic filling. The tricuspid valve is normal in structure. Tricuspid regurgitation is mild regurgitation. The tricuspid regurgitant velocity is 2.4 m/s, the estimated right ventricular systolic pressure is 22 mmHg plus right atrial pressure. There is normal estimated pulmonary pressure by tricuspid regurgitation velocity and right atrial pressure. The pulmonic valve is not well visualized. Trace pulmonary regurgitation. Masses, Effusion, Shunts There is no pericardial effusion. The inferior vena cava is dilated, respiratory size variation greater than 50%. Interatrial septum is not well visualized. MEASUREMENTS AND CALCULATIONS 2-D Measurements and LV Function: LVID (d) 4.9 cm LV FS% (2D) ?? 42 % LVID (s) 2.8 cm LVOT diameter 2.6 cm IVS (d) ??1.0 cm HR ?75 bpm LVPW (d) 1.2 cm LA Vol index ??14 ml/m2 Ao Sinus 3.9 cm RA Vol index ??17 ml/m2 LA ? 3.8 cm RA area ? 14 cm?RV Max 4C (d) 4.4 cm Diastology: Mitral ?Tissue Doppler E Peak 0.6 m/s ??e', Septum ? 0.06 m/s A Peak 0.9 m/s ??e', Lateral ?0.08 m/s E/A ?0.7 ?E/e' Average ?? 8.64 DT ? 274 msec Aortic Valve: Vmax ? 1.5 m/s ??KAPIL (V) ?? 3.24 cm? ? ? VTI ?0.30 m ?? KAPIL (I) ?? 3.07 cm? ? ? LVOT V max 0.9 m/s ??Max PG ?9 mmHg LVOT VTI ?? 0.17 m ?? Mean PG ?? 5 mmHg SV ? 92 ml ?Dim Index 0.58 SV index ?? 38 ml/m? ? ? CO ?6.9 l/min ?CI ?2.9 l/min/m? ? ? Mitral Valve: MVA ?2.8 cm? ? ? MV P 1/2 79 msec Tricuspid Valve and estimated PA pressures: TR Vmax 2.4 m/s TAPSE 2.2 cm TR maxG 22 mmHg . This study was interpreted by an [facility] accredited facility. CC: HIM (med records) [facility], Med/Surg - IP [facility]. ??Final ?? Procedure Note Gabino Pierre MD - 11/20/2023 ECHOCARDIOGRAM CHATO HE : 1955 68 years Study Date: 11/20/2023 12:57:15 PM Gender: M BP: 155/99 mmHg Height: 196.00 cm BSA: 2.38 m? ? ? Weight: 105.00 kg Tech: [facility] Referring MD: ZENOBIA HERNANDEZ Site: [facility] Reading Location: [facility] Patient Location: Inpatient. Procedure: 2D, Color Doppler and Spectral Doppler. Indication for study: CVA Cardiac Rhythm: Regular and normal sinus.Study quality: Fair. Imaging limitations: This study was subject to imaging limitations due tobody habitus and a prominent lung artifact. Final Impressions: 1. Normal LV size, normal wall thickness, normal global systolic functionwith an estimated EF of 60 - 65%. 2. Right ventricular cavity size is normal, global systolic RV functionis normal. 3. No significant valve disease detected. Chamber Sizes and Function Normal left ventricular size, normal wall thickness, normal globalsystolic function with an estimated EF of 60 - 65%. Left atrial size isnormal. Right ventricular cavity size is normal, global systolic RVfunction is normal. RV wall thickness is normal. The right atrium isnormal. Right atrial volume index is 17 ml/m? ? ?. Right atrial area is 14cm? ? ?. The pulmonary artery is not well visualized. The sinus of Valsalvais normal sized. The ascending aorta is not well visualized. Valves, RV Pressures and Diastolic Function The aortic valve is trileaflet and sclerotic, no stenosis and trivialregurgitation. The mitral valve is normal in structure, trace mitralregurgitation. Indeterminate pattern of LV diastolic filling. Thetricuspid valve is normal in structure. Tricuspid regurgitation is mildregurgitation. The tricuspid regurgitant velocity is 2.4 m/s, theestimated right ventricular systolic pressure is 22 mmHg plus right atrialpressure. There is normal estimated pulmonary pressure by tricuspidregurgitation velocity and right atrial pressure. The pulmonic valve isnot well visualized. Trace pulmonary regurgitation. Masses, Effusion, Shunts There is no pericardial effusion. The inferior vena cava is dilated,respiratory size variation greater than 50%. Interatrial septum is notwell visualized. MEASUREMENTS AND CALCULATIONS 2-D Measurements and LV Function: LVID (d) 4.9 cm LV FS% (2D) 42 % LVID (s) 2.8 cm LVOT diameter 2.6 cm IVS (d) 1.0 cm HR 75 bpm LVPW (d) 1.2 cm LA Vol index 14 ml/m2 Ao Sinus 3.9 cm RA Vol index 17 ml/m2 LA 3.8 cm RA area 14 cm? ? ? RV Max 4C (d) 4.4 cm Diastology: Mitral Tissue Doppler E Peak 0.6 m/s e', Septum 0.06 m/s A Peak 0.9 m/s e', Lateral 0.08 m/s E/A 0.7 E/e' Average 8.64 DT 274 msec Aortic Valve: Vmax 1.5 m/s KAPIL (V) 3.24 cm? ? ? VTI 0.30 m KAPIL (I) 3.07 cm? ? ? LVOT V max 0.9 m/s Max PG 9 mmHg LVOT VTI 0.17 m Mean PG 5 mmHg SV 92 ml Dim Index 0.58 SV index 38 ml/m? ? ? CO 6.9 l/min CI 2.9 l/min/m? ? ? Mitral Valve: MVA 2.8 cm? ? ? MV P 1/2 79 msec Tricuspid Valve and estimated PA pressures: TR Vmax 2.4 m/s TAPSE 2.2 cm TR maxG 22 mmHg . This study was interpreted by an [facility] accredited facility. CC: HIM (med records) [facility], Med/Surg - IP [facility]. Final Zenobia Hernandez MD ECHO ORD * SCAN-CT INTERPRETATION (11/19/2023 12:00 AM CDT) Anatomical Region Laterality Modality Other Scanner OTHER * CT CHEST W (11/12/2023 12:03 PM CDT) Anatomical Region Laterality Modality CHEST, THORAX, HEART Computed To mography 11/13/2023 2:14 PM CDT Narrative 11/13/2023 2:14 PM CDT For Patients: ??As a result of the Century Cures Act, medical imaging exams and procedure [...] of2 resultswithin the time period is included. Pathologist [facility] POTASSIUM 4.5 3.5 - 5.1 mmol/L 11/07/2023 3:48 AM CDT [facility] Blood BLOOD SPECIMEN / Unknown Venipuncture / Unknown 11/06/2023 2:36 PM CDT 11/06/2023 2:36 PM CDT Dorinda Washington DO CHEMISTRY [facility] [address] [place] [address], * EKG 12 LEAD UNIT PERFORMED (10/29/2023 1:58 PM CDT) Dorinda Beth Sandeepq DO EKG ORD * MO READING EKG - NO CHARGE, COMP ONLY (10/29/2023 1:47 PM CDT) Dorinda Washington DO PB - PROVIDER READIN GS * (ABNORMAL) HEMOGLOBIN (10/23/2023 1:51 PM CDT) HEMOGLOBIN 12.6(L) 13.5 - 17.5 g/dL 10/23/2023 1:55 PM CDT [facility] MCV 91 80 - 100 fL 10/23/2023 1:55 PM CDT [facility] Blood BLOOD SPECIMEN / Unknown Venipuncture / Unknown 10/23/2023 1:51 PM CDT 10/23/2023 1:51 PM CDT Dorinda Washington DO HEMATOLOGY [facility] [address] [place] [address], * (ABNORMAL) CREATININE (10/23/2023 1:51 PM CDT) Pathologist [facility] eGFR 44(L) >90 mL/min/1.7 3m2 10/23/2023 10:57 PM CDT [facility] Comment:As of 2021, eG FR is calculated by the CKD-EPI creatinine equation without race adjustment. ??eGFR can be influenced by muscle mass, exercise, and diet. ??The reported eGFR is an estimation only and is only applicable if the renal function is stable. CREATININE 1.65(H) 0.70 - 1.20 mg/dL 10/23/2023 10:57 PM CDT [facility] Blood BLOOD SPECIMEN / Unknown Venipuncture / Unknown 10/23/2023 1:51 PM CDT 10/23/2023 1:51 PM CDT Dorindajanessa Hopkinscheng DIAZ CHEMISTRY [facility] [address] [place] [address], * (ABNORMAL) CBC WITH AUTO DIFFERENTIAL (09/10/2023 10:36 AM CDT) [facility] WHITE BLOOD COUNT 6.3 4.5 - 11.0 thou/cu mm 09/10/2023 11:39 AM CDT [facility] RED BLOOD COUNT 4.12(L) 4.30 - 5.90 mil/cu mm 09/10/2023 11:39 AM CDT [facility] HEMOGLOBIN 12.9(L) 13.5 - 17.5 g/dL 09/10/2023 11:39 AM CDT [facility] HEMATOCRIT 37.0 37.0 - 53.0 % 09/10/2023 11:39 AM CDT [facility] MCV 90 80 - 100 fL 09/10/2023 11:39 AM CDT [facility] MCH 31.3 26.0 - 34.0 pg 09/10/2023 11:39 AM CDT [facility] MCHC 34.9 32.0 - 36.0 g/dL 09/10/2023 11:39 AM CDT [facility] RDW 12.9 11.5 - 15.5 % 09/10/2023 11:39 AM CDT [facility] PLATELET COUNT 181 140 - 440 thou/cu mm 09/10/2023 11:39 AM CDT [facility] MPV 12.1(H) 6.5 - 11.0 fL 09/10/2023 11:39 AM CDT [facility] % NEUT 64.5 % 09/10/2023 11:39 AM CDT [facility] % LYMPH 21.0 % 09/10/2023 11:39 AM CDT [facility] % MONO 9.3 % 09/10/2023 11:39 AM CDT [facility] % EOS 4.4 % 09/10/2023 11:39 AM CDT [facility] % BASO 0.8 % 09/10/2023 11:39 AM CDT [facility] ABSOLUTE NEUTROPHILS 4.1 1.7 - 7.0 thou/cu mm 09/10/2023 11:39 AM CDT [facility] ABSOLUTE LYMPHOCYTES 1.3 0.9 - 2.9 thou/cu mm 09/10/2023 11:39 AM CDT [facility] ABSOLUTE MONOCYTES 0.6 <0.9 thou/cu mm 09/10/2023 11:39 AM CDT [facility] ABSOLUTE EOSINOPHILS 0.3 <0.5 thou/cu mm 09/10/2023 11:39 AM CDT [facility] ABSOLUTE BASOPHILS 0.1 <0.3 thou/cu mm 09/10/2023 11:39 AM CDT [facility] Blood BLOOD SPECIMEN / Unknown Venipuncture / Unknown 09/10/2023 10:36 AM CDT 09/10/2023 10:39 AM CDT Dorinda Beth Hopkinsqra DO HEMATOLOGY Performing Organization Address [facility] Co de Phone Number [facility] [address] [place] [address], * EXTRA TUBE GOLD/SST (09/10/2023 10:36 AM CDT) Blood BLOOD SPECIMEN / Unknown Venipuncture / Unknown 09/10/2023 10:36 AM CDT 09/10/2023 10:39 AM CDT Dorinda Beth Hopkinsqra DO LABORATORY Performing Organization Address [facility] de Phone Number [facility] [address] [place] [address], * (ABNORMAL) HEMOGLOBIN A1C MONITORING (POCT) (09/10/2023 10:36 AM CDT) HEMOGLOBIN A1C MONITORING (POCT) 9.5(H) <=6.4 % 09/10/2023 10:50 AM CDT [facility] Blood BLOOD SPECIMEN / Unknown Venipuncture / Unknown 09/10/2023 10:36 AM CDT 09/10/2023 10:39 AM CDT Narrative [facility] - 09/10/2023 10:50 AM CDT ? (<=6.9%) [...] seen with: Untreated Anemias, Splenectomy ? Dorinda Beth Hopkinsqra DO CHEMISTRY Performing Organization Address [facility] Co de Phone Number [facility] [address], [place] [phone] * (ABNORMAL) COMPLIANCE DRUG ANALYSIS (09/02/2023 3:19 PM CDT) 6-MONOACETYL MORPHINE NEG NEG ng/mL 09/04/2023 12:20 PM CDT [facility] AMPHETAMINE URINE NEG <=500 ng/mL 09/04/2023 12:20 PM T [facility] BARBITURATE URINE NEG <=200 ng/mL 09/04/2023 12:20 PM CDT [facility] BENZODIAZEPINE URINE NEG <=100 ng/mL 09/04/2023 12:20 PM T [facility] BUPRENORPHRINE URINE NEG <=5 ng/mL 08/24 12:20 PM T [facility] COCAINE METAB URINE NEG <=300 ng/mL 09/04/2023 12:20 PM T [facility] ETHYLGLUCURONIDE URINE NEG <=250 ng/mL 09/04/2023 12:20 PM T [facility] FENTANYL URINE NEG <=4 ng/mL 09/04/2023 12:20 PM T [facility] METHADONE URINE NEG <=300 ng/mL 09/04/2023 12:20 PM T [facility] OPIATES URINE POS(A) <=300 ng/mL 09/04/2023 12:[address] [facility] OXYCODONE URINE NEG <=100 ng/mL 09/04/2023 12:20 PM T [facility] PROPOXYPHENE URINE NEG <=300 ng/mL 09/04/2023 12:20 PM T [facility] THC 50 URINE NEG <=50 ng/mL 09/04/2023 12:[address] [facility] TRAMADOL NEG <=200 ng/mL 09/04/2023 12:[address] [facility] PH URINE 5.2 5.0 - 7.0 09/04/2023 12:20 PM T [facility] CREAT UR 75 >=20 mg/dL 09/04/2023 12:20 PM T [facility] MASS SPECTROMETRY URINE See Below 09/04/2023 12:20 PM T [facility] Comment:Amitriptyline, Nortr iptyline, Hydrocodone, Norhydrocodone, Lidocaine and Metformin present. Urine URINE SPECIMEN / Unknown Non-Blood / Unknown 09/02/2023 3:19 PM CDT 09/02/2023 3:19 PM CDT Narrative [facility] - 09/04/2023 12:20 PM CDT Current Outpatient Medications: allopurinoL (ZYLOPRIM) 100 mg [...] daily with evening meal. blood sugar diagnostic ([employer] test strips) strip, Dispense item covered [...] 09/02/2023 This procedure was originally ordered at [facility]. Release to patient->Immediate Mary Mclean NP URINE [facility] [address] [place] [address], [place] * US ABD AORTA SCREENING [[id number]] (02/21/2023 10:11 AM INSPECTOR PACKAGER) Anatomical Region Laterality Modality Abdomen, AORTA Ultrasound 02/21/2023 2:18 PM INSPECTOR PACKAGER Narrative 02/21/2023 2:18 PM INSPECTOR PACKAGER For Patients: ??As a result of the 21st Century Cures Act, medical imaging exams and procedure [...] Feb 21 2023 2:18PM (Electronically Signed) Dorinda Washington DO [place] * ANTI HCV (02/04/2023 11:56 AM INSPECTOR PACKAGER) HEPATITIS C ANTIBODY Non-Reacti ve Non-React nerissa 02/04/2023 9:39 PM INSPECTOR PACKAGER [facility] Comment:Please note, per www .CDC.gov: If a patient is known to be at high risk of HCV infection, or is symptomatic, and the physician's suspicion of HCV infection is high, HCV RNA testing is often employed and is of diagnostic value, even after an initial negative anti-HCV test result. Blood BLOOD SPECIMEN / Unknown Venipuncture / Unknown 02/04/2023 11:56 AM INSPECTOR PACKAGER 02/04/2023 11:58 AM INSPECTOR PACKAGER Dorinda Washington DO SEND OUTS [employer] [facility] [address] [place] [address], from Last 3 Months or Most Recently Relevant to Health Maintenance Advance Directives * Full Code (Latest Code Status on File) Date Activated Date Inactivated Comments 11/20/2023 8:40 PM Discussed with patient. He discussed with his . He and his want him to be full code here. Question Answer Comments Code Status Discussion: Reviewed Preferences * Full Code Date Activated Date Inactivated Comments 11/20/2023 8:31 PM 11/20/2023 8:40 PM Question Answer Comments Code Status Discussion: Unable to Assess Preferences, Provider to review later * Full Code Date Activated Date Inactivated Comments 07/04/2023 1:23 PM 07/04/2023 6:25 PM Question Answer Comments Code Status Discussion: Other Care Teams Accounting Coordinator Relationship Specialty Start Date End Date Dorinda Washington DO [address] [place] [address] PCP - General Family Practice 09/04/22 Whitney Silva MD [address] [place] [address] Medical Oncologist Hematology and Oncology 12/26/22 Raisa White, PBX MANAGER [address] [place] [address] Nurse Practitioner Hematology and Oncology 12/26/22 Faith Donovan, RN [address] [place] [address] Chemical Laboratory Chief 02/11/23 Kennedi Perry, RN, BSN, OCN [address] [place] [address] Nurse Navigator - Oncology Registered Nurse 02/19/23 Mary Mclean NP [address] [place] [address] Nurse Practitioner - Family 02/25/23 Hina Campbell RN [address] [place] [address] Nurse Navigator - Oncology Registered Nurse 06/06/23 Jin Shipley MD [address] [facility] [address] [place] [address] Nephrology 07/17/23 Han Bradley MD [address] [place] [address] Physical Medicine and Rehabilitation 07/17/23
--- OUTSIDE RECORDS SUMMARY | 2023-11-22 02:43 | XMS_ITS | Encounter Summary ---
Author Organization [facility] Address [address] [address] Care Team Providers Care Guest Service Aide Name Role Phone Clinician, Not Found MD Primary Care Provider Un available Encounter Details Date Type Department Care Team (Late st Contact Info) Description 11/04/2023 Telephone Physiatry/Physical Medicine at [facility] [address] [facility] [place], [place] [phone] Han Bradley MD [address] [place], [place] [phone] Social History Tobacco Use Types Packs/Day Years [...] on filedocumented in this encounter Care Teams Guest Service Aide Relationship Specialty Start Date End Date Clinician, Not Found, [place] [address] PCP - General 12/11/20 documented as of this encounter
--- OUTSIDE RECORDS SUMMARY | 2023-11-22 02:43 | XMS_ITS | Clinical Summary ---
Author Organization [facility] Address [address] [place] [address] Phone Care Team Providers Care Squaring Shear Operator Name Role Phone Yousuf Bernard MD Primary Care Provider [phone] Allergies No known active allergies Medications Medication [...] Type Department Care Team Description 10/22/2023 Refill [employer] [address] [place] [address] Jin Shipley MD 09/24/2023 Telephone [employer] [facility] [address] [place] [address] Samantha To RN 09/12/2023 9:30 AM CDT Office Visit [employer] [address] [place] [address] Meena Dover MD Nephrolithiasis (Primary Dx); Renal disorder due to type 2 diabetes mellitus <Diabetic nephropathy> ([facility]); Essential hypertension; Monoclonal gammopathy; 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; Vitamin D deficiency, not otherwise specified; 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[facility]); Uric acid renal calculus; Stage 3b chronic kidney disease ([facility]) from Last 3 Months Immunizations Name Administration [...] Comments Blood Pressure 113/74 01/07/2023 3:22 PM SOFTWARE TEST AUTOMATION ENGINEER Pulse 80 01/07/2023 3:22 PM SOFTWARE TEST AUTOMATION ENGINEER Temperature 36.3 ??C (97.4 ??F) 01/07/2023 3:22 PM CS T Respiratory Rate 20 09/23/2022 2:15 PM CDT Oxygen Saturation 97% 01/07/2023 3:22 PM SOFTWARE TEST AUTOMATION ENGINEER Inhaled Oxygen Concentration - - Weight 111 kg (244 lb 3.2 oz) 01/07/2023 3:22 PM SOFTWARE TEST AUTOMATION ENGINEER Height 195.6 cm (6' 5) 01/07/2023 3:22 PM SOFTWARE TEST AUTOMATION ENGINEER Body Mass Index 28.96 01/07/2023 3:22 PM SOFTWARE TEST AUTOMATION ENGINEER Plan of Treatment Upcoming Encounters Date Type Department Care Team (Late st Contact Info) Description 12/08/2023 9:30 AM CDT Office Visit [employer] [email or web address] [place], [place] [address] Meena Dover MD [address] [place], [place] [phone] Health Maintenance Due Date Last Done Comments Diabetic Foot Exam 08/05/1963 Ophthalmology Exam 08/05/1963 Pneumococcal PPSV23/PCV13 65 + Years / High and Highest Risk (2 of 3 - PCV) 03/07/2022 03/07/2021 COVID-19 Vaccine (4 - 2022-24 season) 2023 09/04/2022, 05/26/2020, 04/27/2020 Influenza Vaccine (#1) 2023 Care Teams Squaring Shear Operator Relationship Specialty Start Date End Date Yousuf Bernard MD [address] [place], [place] [address] PCP - General 02/14/23
--- OUTSIDE RECORDS SUMMARY | 2023-11-22 02:43 | XMS_ITS | Encounter Summary ---
Author Organization [facility] Address [address] [place] [address] Phone Care Team Providers Care Clinical Mental Health Counselor Name Role Phone Yousuf Bernard MD Primary Care Provider [phone] Encounter Details Date Type Department Care Team (Late st Contact Info) Description 09/24/2023 Telephone [email or web address] [place], [place] [address] Samantha To RN Social History Tobacco Use [...] 24h litholink and then labs faxed to [facility] (renal panel, UA with reflex, UACR, and PTH). Thanks! documented in this encounter Plan of Treatment Upcoming Encounters Date Type Department Care Team (Late st Contact Info) Description 12/08/2023 9:30 AM CDT Office Visit [facility] [address] [facility] [address] [place], [place] [phone] Meena Dover MD [address] [facility] [address] [place], [place] [phone] documented as of this encounter Visit Diagnoses Not on filedocumented in this encounter Care Teams Clinical Mental Health Counselor Relationship Specialty Start Date End Date Yousuf Bernard MD [address] [place] [address] PCP - General 02/14/23 documented as of this encounter
--- OUTSIDE RECORDS SUMMARY | 2023-11-22 02:43 | XMS_ITS | Clinical Summary ---
Author Organization [facility] Address [address], [place] [address] Care Team Providers Care Social Work Nurse Name Role Phone Clinician, Not Found MD Primary Care Provider Un available Source Comments You are receiving this document as you are listed as the primary care provider,follow-up provider, or the patient has been referred to you for consultation.This is in compliance with the Medicare and[facility] EHR Incentive Program,which states Providers who transition their patient to another setting of careor provider of care or refers their patient to another provider of care shouldprovide summary care record for each transition of care or referral. Make Meaning Allergies No known active allergies Medications Medication [...] mouth daily. 90 Tablet 3 3 Active [place]-3 Fatty Acids (FISH OIL) 1000 MG capsule [...] PM CDT Office Visit Physiatry/Physical Medicine at [address] [place] [address] Han Braldey MD Cerebrovascular accident (CVA), unspecified mechanism (HRC) (Primary Dx); Right hemiparesis (HRC) 11/04/2023 Telephone Physiatry/Physical Medicine at [address] [place] [address] Han Bradley MD 10/06/2023 Telephone Physiatry/Physical Medicine at [address] [place] [address] Han Bradley MD Progress Report (OT Progress 10/01/23) 09/05/2023 Telephone Physiatry/Physical Medicine at [address] [place] [address] Han Bradley MD Progress Report (PT Progress [...] - 145 mmol/L 08/21/2022 6:36 AM CDT [facility] Potassium 4.5 3.5 - 5.1 mmol/L 08/21/2022 6:[address] [facility] Chloride 112(H) 98 - 109 mmol/L 08/21/2022 6:36 AM T [facility] CO2 20 20 - 29 mmol/L 08/21/2022 6:36 AM T [facility] Anion Gap 9 7 - 16 mmol/L 08/21/2022 6:[address] [facility] Calcium 9.0 8.4 - 10.4 mg/dL 08/21/2022 6:[address] [facility] BUN 53(H) 7 - 26 mg/dL 08/21/2022 6:[address] [facility] Creatinine 2.20(H) 0.73 - 1.18 mg/dL 08/21/2022 6:[address] [facility] Glucose 102(H) 70 - 100 mg/dL 08/21/2022 6:[address] [facility] Comment:The given reference range is for the fasting state. Non-fasting reference range for glucose is 70 - 180 mg/dL. GFR, Estimated 32(L) >60 mL/min/1.7 3m2 08/21/2022 6:[address] [facility] Blood Venipuncture / Unknown 08/21/2022 5:51 AM CDT 08/21/2022 6:03 AM CDT Machelle Gregg MD LAB_[address] [address], [facility] [phone] from Last 3 Months or Most Recently Relevant to Health Maintenance Advance Directives * Full Code (Latest Code Status on File) Date Activated Date Inactivated Comments 08/14/2022 2:54 PM 08/21/2022 12:21 PM Care Teams Social Work Nurse Relationship Specialty Start Date End Date Clinician, Not Found, [place] [address] PCP - General 12/11/20
--- OUTSIDE RECORDS SUMMARY | 2023-11-22 02:43 | XMS_ITS | Encounter Summary ---
Author Organization [facility] Address [address], [place] [address] Care Team Providers Care Floral Decorator Name Role Phone Clinician, Not Found MD Primary Care Provider Un available Reason for Visit * Reason Comments Progress Report PT Progress 09/04/23 Encounter Details Date Type Department Care Team (Late st Contact Info) Description 09/05/2023 Telephone Physiatry/Physical Medicine at [facility] [address] [facility]. [place], [place] [id number] Han Bradley MD [address] [place], [place] [id number] Progress Report (PT Progress 09/04/23) Social History [...] - 09/18/2023 1:59 PM CDT Received from [place] to do bin. Faxed to [facility] at [phone]. Confirmation received. Form sent to scanning. Thanks. Roseann Sands 09/18/2023, 1:59 PM * Machelle Irene CMA - 09/18/2023 11:25 AM CDT Provider has signed the form/document or completed request below. Please fax or send as requested. Placed in [place] to do. Machelle Ascencio CMA ([facility]), 09/18/2023 11:25 AM * Melecio Rahman [...] on filedocumented in this encounter Care Teams Floral Decorator Relationship Specialty Start Date End Date Clinician, Not Found, [place] [address] PCP - General 12/11/20 documented as of this encounter
--- OUTSIDE RECORDS SUMMARY | 2023-11-22 02:43 | XMS_ITS | Encounter Summary ---
Author Organization [facility] Address [address] [address] Phone Care Team Providers Care Guzzler Builder Name Role Phone Yousuf Bernard MD Primary Care Provider [phone] Encounter Details Date Type Department Care Team (Latest Contact Info) Description 09/12/2023 9:30 AM CDT Office Visit [facility] [employer] [address] [place] [address] Meena Dover MD [address] [place], [place] [phone] Nephrolithiasis (Primary Dx); Renal disorder due to type 2 diabetes mellitus <Diabetic nephropathy> ([facility]); Essential hypertension; Monoclonal gammopathy; 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 - labs sent to [facility] DM2 Dx in 2011, possibly before. Poorly controlled. Most recent A1c 9.5 (09/10/23). Currently on metformin 500 mg BID (recently reduced from 1000 mg BID), ozempic, and glipizide. Has neuropathy, unclear if retinopathy present. Anemia screening Most recent Hgb 12.9 (09/10/23). No indication for iron or FOREST. Monoclonal IgG kappa Noted on SPEP/KAILASH 06/2022, stable. Casar:lambda normal 1.21. HTN Currently on amlodipine 10 mg daily, lisinopril 20 mg BID. BP well controlled 108/72 on recent clinic visit. No changes needed. CKD MBD Vit D deficiency Last vit D checked 05/2023, was 39.3. No changes needed. Will check PTH. F/u in 6 months. Patient would like to establish nephrology care closer to home, already has referral to [facility] in [facility]. Discussed getting appt scheduled for future because sometimes can take awhile to get an appointment. We'll continue seeing him until he's established with [facility]. Reviewed notes from Dr. Shipley (nephrology), Dr. Washington ([facility]), Mary Mclean NP (pain clinic). Today's [...] Cerebral artery occlusion, unspecified, with cerebral infarction ([facility]) Depressive disorder Diabetes mellitus without mention of complication, type II or unspecified type, not stated as uncontrolled ([facility]) Essential hypertension Nephrolithiasis Other and unspecified hyperlipidemia [...] morning and 650 mg in the evening [id number] mg before bedtime. For 14 days ., [...] imaging studies were reviewed. Meena Dover MD [facility] [phone] documented in this encounter Plan of Treatment Upcoming Encounters Date Type Department Care Team (Late st Contact Info) Description 12/08/2023 9:30 AM CDT Office Visit [facility] [address] [place] [address] Meena Dover MD [address] [place] [address] [place] [address] documented as of this encounter Visit Diagnoses Diagnosis Nephrolithiasis- Primary Renal disorder due to type 2 diabetes mellitus <Diabetic nephropathy> ([facility]) Essential hypertension Monoclonal gammopathy 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
--- OUTSIDE RECORDS SUMMARY | 2023-11-22 02:43 | XMS_ITS | Encounter Summary ---
Author Organization [facility] Address [facility] [place] [address] Care Team Providers Care Special Duty Nurse Name Role Phone Yousuf Bernard MD Primary Care Provider [phone] Abrahan Bower MD Unavailable [phone] Reason for Visit * Reason Onset Date Comments Medication Question 10/03/2022 Encounter Details Date Type Department Care Team (Late st Contact Info) Description 10/03/2022 Telephone [facility] [place] [address] [place] [address] Abrahan Bower MD [address] [place] [address] Medication Question Social History Tobacco [...] on filedocumented in this encounter Care Teams Special Duty Nurse Relationship Specialty Start Date End Date Yousuf Bernard MD [facility] [address] [facility] [address] [place], [place] [address] PCP - General Family Medicine 06/16/22 Abrahan Bower MD [address] [facility] [address] [place] [address] Assigned Surgical Provider 10/12/22 documented as of this encounter
--- OUTSIDE RECORDS SUMMARY | 2023-11-22 02:43 | XMS_ITS | Encounter Summary ---
Author Organization [employer] Address [address] [place] [address]. [place] [address] Care Team Providers Care Salesperson Toy Trains And Accessories Name Role Phone Yousuf Bernard MD Primary Care Provider [phone] Abrahan Bower MD Unavailable [phone] Encounter Details Date Type Department Care Team (Late st Contact Info) Description 09/25/2022 [facility] Medical Advice [facility] [address] [place] [address] Hina Lujan Social History Tobacco [...] on filedocumented in this encounter Care Teams Salesperson [employer] Relationship Specialty Start Date End Date Yousuf Bernard MD [facility] [address] [facility] [address] [place] [address] PCP - General Family Medicine 4/23/23 Abrahan Bower MD [address] [place] [address] [place] [place] [address] Assigned Surgical Provider 10/12/22 documented as of this encounter
--- OUTSIDE RECORDS SUMMARY | 2023-11-22 02:43 | XMS_ITS | Patient Health Record ---
Author Organization [facility] Address [address] [place], [place] [address] Care Team Providers Care Forging Operator Name Role Phone Maria E Valdez Primary Care Provider [phone] Allergies No Known Allergies Reason For Referral [...] Problem Status W/U Status Risk Notes Problem 101285253 Tobacco abuse (Z72.0) Active confirmed Problem 375742099 Low back pain (M54.5) Active confirmed Problem 97050977 Essential hypertension (I10) Active confirmed Problem 279542206 Diabetes mellitu s type 2 in nonobese (E11.9) Active confirmed Problem 777937748 FH: stroke (Z82.3) Active confirmed Problem 22376081 Diabetic 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 associated with type 2 diabetes mellitus (E11.42) Active confirmed Plan Of Treatment Pending Test Test Name Order Date EKG 10/07/2018 URINALYSIS - UA IN HOUSE 05/18/2018 Insurance Providers Payer Name Payer Address Payer Phone Subscriber Number Group Number Insured Name Patient Relationship to Insured Coverage Start Date Coverage End Date [facility] [address] [address] [place] [address] [id number] Chato Olivo Self - patient is the insured Medical (General) History Medical History History ICD Code Diabetes Hypertension Tobacco abuse Z72.0 Tobacco abuse Z82.3 FH: stroke E11.42 Diabetic 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 associated with type 2 diabetes mellitus M54.5 Low back pain Surgical History Surgery Date(Month/Year) Right total hip replacement 10/2019
--- OUTSIDE RECORDS SUMMARY | 2023-11-22 02:43 | XMS_ITS | Encounter Summary ---
Author Organization [employer] Address [address], [place] [address] Care Team Providers Care Intelligence Clerk Name Role Phone Clinician, Not Found MD Primary Care Provider Un available Reason for Referral * Therapies (Routine) - New Request Specialty Diagnoses / Procedures Referred By Keenanac brittany Referred To Contact Diagnoses Cerebrovascular accident (CVA), unspecified mechanism (HRC) Right hemiparesis (HRC) Han Bradlye MD [address] [place] [address] Referral ID Status Reason Start Date Expiration Date V isits Requested Visits Authorized [id number] New Request 11/04/2023 11/03/2024 1 1 Scheduling [...] Right hemiparesis (HRC) Han Bradley MD [address] [place] [address] Referral ID Status Reason Start Date Expiration Date V isits Requested Visits Authorized [id number] New Request 11/04/2023 11/03/2024 1 1 Scheduling Instructions Your clinician has recommended an appointment with [facility]. You can quickly make your appointment online at [employer]/schedule. You can also call [phone] for help scheduling your appointment. We suggest [...] PM CDT Office Visit Physiatry/Physical Medicine at [address] [place] [address] Han Bradley MD [address] [place], [place] [id number] Cerebrovascular accident (CVA), unspecified mechanism (HRC) (Primary [...] side documented in this encounter Care Teams Intelligence Clerk Relationship Specialty Start Date End Date Clinician, Not Found, [place] [address] PCP - General 12/11/20 documented as of this encounter
--- OUTSIDE RECORDS SUMMARY | 2023-11-22 02:43 | XMS_ITS | Encounter Summary ---
Author Organization [facility] Address [address], [place] [address] Care Team Providers Care Photogrammetry Airplane Pilot Name Role Phone Clinician, Not Found MD Primary Care Provider Un available Reason for Visit * Reason Comments Progress Report OT Progress 10/01/23 Encounter Details Date Type Department Care Team (Late st Contact Info) Description 10/06/2023 Telephone Physiatry/Physical Medicine at [facility] [address] [facility]. [place], [place] [id number] Han Bradley MD [address] [place], [place] [phone] Progress Report (OT Progress 10/01/23) Social History [...] - 10/30/2023 2:29 PM CDT Received from [place] to do bin. [facility] [phone]. Confirmation received. Form sent to scanning. Thanks. Roseann Sands 10/30/2023, 2:29 PM * Machelle Irene CMA - 10/30/2023 8:43 AM CDT Provider has signed the form/document or completed request below. Please fax or send as requested. Placed in [place] to do. Machelle Ascencio CMA ([facility]), 10/30/2023 8:43 AM * Roseann Sands - 10/28/2023 10:20 AM CDT Received a fax from [place]. 3rd request for this to be completed. Fax is a duplicate, being deleted. Thanks. Roseann Sands 10/28/2023, 10:20 AM * Melecio Rahman - 10/10/2023 1:29 PM CDT Received a fax from [place] 2nd request for this to be completed. Fax is a duplicate, being deleted. Thanks. Melecio Rahman 10/10/2023, 1:30 PM * Machelle Irene CMA - 10/06/2023 3:36 PM CDT Provider is working at the hospital. Will review and sign forms, if appropriate, when back in clinic. Machelle Ascencio CMA ([facility]), 10/06/2023 3:36 PM * Melecio Rahman - 10/06/2023 10:24 AM CDT Received a fax from [facility]. OT daily note 10/01/23 Requesting provider signature. Fax can be found in provider right fax folder. Thanks. Melecio Rahman 10/06/2023, 10:24 AM documented in this encounter Plan of Treatment Not on file documented as of this encounter Visit Diagnoses Not on filedocumented in this encounter Care Teams Photogrammetry Airplane Pilot Relationship Specialty Start Date End Date Clinician, Not Found, [place] [address] PCP - General 12/11/20 documented as of this encounter
--- OUTSIDE RECORDS SUMMARY | 2023-11-22 02:43 | XMS_ITS | Encounter Summary ---
Author Organization [facility] Address [address] [place] [address] Phone Care Team Providers Care Damage Assessor Name Role Phone Yousuf Bernard MD Primary Care Provider [phone] Reason for Visit * Reason Comments Med Refill Encounter Details Date Type Department Care Team (Late Contact Info) Description 10/22/2023 [address] [facility] [address] [place] [address] Jin Shipley MD [address] [place], [place] [address]e [facility] [address] [place] [phone] Social History Tobacco Use Types Packs/Day Years [...] Description 12/08/2023 9:30 AM CDT Office Visit [facility] [address] [place] [address] Meena [place] MD [facility] [address] [place] [phone] documented as of this encounter Visit Diagnoses Not on filedocumented in this encounter Care Teams Damage Assessor Relationship Specialty Start Date End Date Yousuf Bernard MD [address] [address] PCP - General 02/14/23 documented as of this encounter
== END 2023-11-19 10:16 | disposition home or self-care (01) ==
LOC: AMB 11-22 02:39
PROVIDERS: PCP Family Medicine; Visit Provider Family Medicine
DX: R53.1 Weakness (principal); R41.82 Altered mental status, unspecified
CPT/HCPCS: A0425; A0427

== ENCOUNTER 2023-11-19 10:51 | Inpatient (IN) | payer MEDICARE, BC, SELFPAY ==
[2023-11-19] VITALS (20 sets, daily range): BP systolic 126–163; BP diastolic 88–104; PULSE 73–95; RESP 12–18; TEMP 36.3–36.9; O2SAT 95–98; BMI 27.3
--- NOTE | 2023-11-19 10:58 | ED_ITS ---
HPI - General Adult General Chief complaint: Neuro Symptoms/Altered Deficit Stated complaint: Fall, dizziness, hx of stroke Time Seen by Provider: 11/19/23 10:58 History of Present Illness HPI narrative: [age] year white man with history of a prior stroke, presents with right arm weakness and right leg weakness this morning. He woke up and said he felt pretty well although he was not sure what time that was he thinks it was early this morning perhaps 6 or 7:00 a.m., he went back to sleep and then woke up and fell about 930 as he was weak in his leg. He did not injure himself from the fall. He has a little bit of confusion and a little bit of right arm weakness and right leg weakness. His prior stroke apparently had some right arm weakness as well I do not have data on that episode, and in fact I do not have any real historical information on the patient at this time. He presents via EMS. A stroke code was called. He was taken to CT scan after evaluated in the back hallway. The patient is alert orient to person place not to time he thinks it is August 07, he is moving all extremities he has a slight drift of his right arm, but he also has apparently a ?bad shoulder and if ?. Patient does not have demonstrating weakness or dysesthesia of his right lower extremity he is able lift both legs off the bed. He has a good needle leader strength on the right. He has no facial asymmetry noted. He was sent for CT, CTA. Related Data Home Medications ?Medication ?Instructions ?Recorded ?Confirmed allopurinol 100 mg tablet 50 mg PO DAILY 11/19/23 11/19/23 amitriptyline 10 mg tablet 10 mg PO HS 11/19/23 11/19/23 amlodipine 10 mg tablet 10 mg PO DAILY 11/19/23 11/19/23 aspirin 81 mg chewable tablet 81 mg PO DAILY 11/19/23 11/19/23 atorvastatin 80 mg tablet 80 mg PO QPM 11/19/23 11/19/23 glipizide 10 mg tablet, extended 20 mg PO DAILY 11/19/23 11/19/23 release 24 hr hydrocodone 5 mg-acetaminophen 325 1 tab PO BID PRN pain 11/19/23 11/19/23 mg tablet lisinopril 20 mg tablet 20 mg PO DAILY 11/19/23 11/19/23 metformin 1,000 mg tablet 1,000 mg PO BID 11/19/23 11/19/23 naloxone 4 mg/actuation nasal spray 1 spray intranasal .PRN PRN 11/19/23 11/19/23 semaglutide 2 mg/dose (8 mg/3 mL) 2 mg subcut .WEEKLY 11/19/23 11/19/23 subcutaneous pen injector (Ozempic) sennosides 8.6 mg-docusate sodium 2 tab-cap PO BID PRN 11/19/23 11/19/23 50 mg tablet (Stimulant Laxative Plus) Allergies Allergy/AdvReac Type Severity Reaction Status Date / Time No Known Drug Allergies Allergy Verified 11/19/23 11:24 Review of Systems Status of ROS: Reports: 6 or more systems reviewed and unremarkable except as noted in History and below PFSH [facility] Medical History (Updated 11/19/23 @ 15:59 by Zenobia Mccartney MD) Tobacco use ?Z72.0 - Tobacco use (ICD-10) Peripheral neuropathy ?G62.9 - Polyneuropathy, unspecified (ICD-10) Essential hypertension ?I10 - Essential (primary) hypertension (ICD-10) Abdominal aneurysm ?I71.40 - Abdominal aortic aneurysm, without rupture, unspecified (ICD-10) Squamous cell carcinoma of lung, stage I ?C34.90 - Malignant neoplasm of unspecified part of unspecified bronchus or lung (ICD-10) CKD stage 3b, GFR 30-44 ml/min ?N18.32 - Chronic kidney disease, stage 3b (ICD-10) Non-insulin dependent diabetes mellitus Surgical History (Updated 11/19/23 @ 15:40 by Zenobia Mccartney MD) H/O total hip arthroplasty ?Z96.649 - Presence of unspecified artificial hip joint (ICD-10) S/P bronchoscopy with biopsy ?Z98.890 - Other specified postprocedural states (ICD-10) Social History (Updated 11/19/23 @ 16:01 by Zenobia Mccartney MD) Narrative: Delaney would be medical decision maker if needed. Requests DNR/DNI status. Retired, smokes 15-20 cigarettes/day. No concerning ETOH use. What is your current living situation?: I presently have a place to live Problems where you live: no known problems Problems where you live details: none In the past 12 months, utilities in danger of being shut off: no In past 12 months, lack of transportation kept you from medical appts, meetings, work, or getting things needed for daily living: no In the past 12 mos, have been you worried that your food would run out before you had money to buy more?: never true In the past 12 mos, the food you bought just didn't last and you didn't have money to buy more?: never true Highest level of school completed/degree received: high school graduate Smoking Status: Current every day smoker What tobacco products do you use: cigarettes Smoking packs per day: 1 Smoking cigarettes per day: 20.0 Years smoked: 50 Smoking pack-years: 50.00 Do you use any of these nicotine containing products: None Second hand tobacco smoke exposure: Yes How often do you have a drink containing alcohol: 2-4 times a month Alcohol type: hard liquor How many standard drinks containing alcohol do you have on a typical day: 1 or 2 How often do you have six or more drinks on one occasion: Never AUDIT-C Alcohol total score: 2 Non-prescribed substance use: denies use Caffeine: Yes (2 cups) How often does anyone, including family, friends and others, physically hurt you : never How often does anyone, including family, friends and others, insult or talk down to you: never How often does anyone, including family, friends and others, threaten you with harm: never How often does anyone, including family, friends and others, scream or curse at you: never service: No Exam Narrative: Exam Narrative: Objective: Patient is alert oriented to person and place but not time he thinks it is He arrives via EMS. His neurologic eval shows that he is moving all extremities, he has some mild drift in his right upper extremity, he has pretty normal examination of his right lower extremity with normal strength sensation is able to hold his leg up. He has no facial asymmetry Pulse regular Abdomen benign Extremities good perfusion no edema Const: Vital Signs, click to edit/add: Vital Signs - 24 hr 11/19/23 11:09 11/19/23 11:10 11/19/23 11:12 Temperature Pulse Rate 82 82 Pulse Rate [Right Pulse Oximeter] Respiratory Rate 12 Blood Pressure 153/88 H Blood Pressure [Ri ght Upper Arm] Pulse Oximetry 95 97 97 Oxygen Delivery Me thod 11/19/23 11:13 11/19/23 11:13 11/19/23 11:15 Temperature 97.3 F L Pulse Rate 81 89 Pulse Rate [Right Pulse Oximeter] 81 Respiratory Rate 18 Blood Pressure Blood Pressure [Ri ght Upper Arm] 153/88 H Pulse Oximetry 95 97 96 Oxygen Delivery Me thod Room Air 11/19/23 11:17 11/19/23 11:18 11/19/23 11:31 Temperature Pulse Rate 87 83 Pulse Rate [Right Pulse Oximeter] Respiratory Rate 12 Blood Pressure 163/89 H 142/104 H Blood Pressure [Ri ght Upper Arm] Pulse Oximetry 96 97 Oxygen Delivery Me thod 11/19/23 11:33 11/19/23 11:45 11/19/23 11:46 Temperature Pulse Rate 84 75 82 Pulse Rate [Right Pulse Oximeter] Respiratory Rate Blood Pressure 147/98 H Blood Pressure [Ri ght Upper Arm] Pulse Oximetry 95 98 98 Oxygen Delivery Me thod 11/19/23 11:46 11/19/23 11:47 11/19/23 12:01 Temperature Pulse Rate 82 76 Pulse Rate [Right Pulse Oximeter] Respiratory Rate Blood Pressure 147/98 H 141/97 H Blood Pressure [Ri ght Upper Arm] Pulse Oximetry 98 98 Oxygen Delivery Me thod 11/19/23 12:02 Temperature Pulse Rate 79 Pulse Rate [Right Pulse Oximeter] Respiratory Rate Blood Pressure Blood Pressure [Ri ght Upper Arm] Pulse Oximetry 96 Oxygen Delivery Me thod Course Vital Signs Vital signs: Initial Vital Signs Pulse Rate 82 11/19/23 11:09 Pulse Oximetry 95 11/19/23 11:09 Vital Signs Pulse Rate 82 11/19/23 11:09 Pulse Oximetry 95 11/19/23 11:09 Temperature 98.2 F 11/19/23 16:17 Pulse Rate 85 11/19/23 16:17 Respiratory Rate 18 11/19/23 16:17 Blood Pressure 144/100 H 11/19/23 16:17 Pulse Oximetry 96 11/19/23 16:17 Oxygen Delivery Method Room Air 11/19/23 16:17 Medications Administered Medications: Generic Name Dose Route Start Last Admin Trade Name Freq PRN Reason Stop Dose Admin Nicotine 1 patch 11/19/23 15:45 11/19/23 16:09 Nicotine 14 Mg Patch TRANSDERMA 1 patch Q24H GALLITO Administration Discontinued Medications Generic Name Dose Route Start Last Admin Trade Name Elio PRN Reason Stop Dose Admin Sodium Chloride 500 mls @ 500 mls/hr 11/19/23 11:10 11/19/23 11:30 0.9 % Sodium Chloride 500 Ml IV 11/19/23 12:09 500 mls/hr .Q1H ONE Administration Medical Decision Making MDM Narrative Medical decision making narrative: 68 year white male with a history of stroke in the past what sounds like in July with recurrent stroke-like symptoms. At this time I called Stroke Neurology and they will consult with the patient via tele stroke. CT CTA has been ordered. Patient will get laboratory studies, EKG, IV fluid, neuro consult as mentioned above. And a brief stroke scale would be about 4 given his drift and his lack of awareness of the month. The patient has had a stroke in the past apparently. At this point it is really difficult to date his exact time of onset of sympto ms given he was up in the morning and then got up again after went back to sleep and had a fall at about 930. It is unclear if he had any weakness before but he certainly may not have. Discussed with neurology and they will evaluate the situation. They will also discuss the situation with his food is soon to arrive. Addendum 12 noon the patient's head CT and CTA by Dr. Stevens stroke neurology is reported as unremarkable. His symptoms have returned pretty much to baseline. His right arm is better. At this point she does not feel he has a thrombolytics candidate. At this point she recommended brain MRI, fluids, monitoring his creatinine, telemetry. Review of he has had echo done. Will try and get whole information from his prior hospitalization with stroke. Discussed Dr. covarrubias who kindly accepts for the hospitalist team. Lab Data Labs: Lab Results 11/19/23 Range/Units 11:34 WBC 6.14 (4.50-11.00) K/uL RBC 3.75 L (4.30-5.90) m/uL Hgb 11.6 L (13.5-17.5) gm/dL Hct 34.2 L (37.0-53.0) % MCV 91 (80-100) fL MCH 31 (26-34) pg MCHC 34 (32-36) gm/dL RDW Coeff of Maribel 12.2 (11.5-15.5) % Plt Count 156 (140-440) K/uL Neut % (Auto) 73.7 H (42.0-72.0) % Lymph % (Auto) 14.8 L (20-44) % Screven % (Auto) 6.8 (0.0-11.0) % Eos % (Auto) 3.9 (0.0-7.0) % Baso % (Auto) 0.8 (0.0-3.0) % Neut # (Auto) 4.50 (1.7-7.0) K/uL Lymph # (Auto) 0.90 (0.90-2.90) K/uL Screven # (Auto) 0.40 (0.00-0.90) K/UL Eos # (Auto) 0.24 (0.00-0.50) K/uL Baso # (Auto) 0.05 (0.00-0.30) K/uL Abs Immat Gran (auto) 0.00 (0.00-0.30) K/uL Imm/Tot Granulo (auto) 0.0 % INR 0.95 (0.91-1.10) APTT 26 (23-33) Seconds Sodium 137 (135-149) mmol/L Potassium 4.2 (3.6-5.1) mmol/L Chloride 107 (96-114) mmol/L Carbon Dioxide 22 (20-32) mmol/L Anion Gap 8 (7-15) mEq/L BUN 24 (7-30) mg/dL Creatinine 1.3 (0.5-1.5) mg/dL Estimated Creat Clear 66.63 Estimated GFR 59 ml/min Glucose 153 H (60-115) mg/dL Calcium 9.3 (8.4-10.6) mg/dL Total Bilirubin 0.5 (0.1-1.5) mg/dL Direct Bilirubin 0.1 (0.0-0.5) mg/dL AST 31 (12-35) U/L ALT 31 (4-50) U/L Alkaline Phosphatase 100 (40-150) U/L Troponin I < 0.01 L (0.01-0.04) ng/mL C-Reactive Protein < 0.5 L (0.5-1.0) mg/dL NT-Pro-B Natriuret Pep 78 pg/mL Total Protein 6.4 (6.0-8.3) g/dL Albumin 4.1 (3.3-5.0) g/dL Discharge Plan Discharge Clinical Impression: Stroke Patient Disposition: Admitted As Observation
--- NOTE | 2023-11-19 11:08 | CRLHL7_ITS ---
For Patients: As a result of the Century Cures Act, medical imaging exams and procedure reports are released immediately into your electronic medical record. You may view this report before your referring provider. If you have questions, please contact your health care provider. INDICATION: Acute stroke. TECHNIQUE: CTA head with contrast bolus tracking, 3D angiographic rendering using maximum intensity projection (MIP) and images permanently archived. FINDINGS: There is scattered intracranial atherosclerotic disease. There is normal opacification of the intracranial vasculature. There is no large vessel occlusion. No aneurysm is identified. IMPRESSION: No large vessel occlusion. Please note that all CT scans at this facility use dose modulation, iterative reconstruction, and/or weight-based dosing when appropriate to reduce radiation dose to as low as reasonably achievable. Dictated by Chris Ballard MD @ 11/19/2023 8:01:15 PM (Electronically Signed)
--- NOTE | 2023-11-19 11:08 | CRLHL7_ITS ---
For Patients: As a result of the 21st Century Cures Act, medical imaging exams and procedure reports are released immediately into your electronic medical record. You may view this report before your referring provider. If you have questions, please contact your health care provider. INDICATION: Acute stroke. TECHNIQUE: CTA neck with contrast bolus tracking, 3D angiographic rendering using maximum intensity projection (MIP) and images permanently archived. FINDINGS: There is highly irregular ulcerated atherosclerotic plaque in the proximal internal carotid arteries bilaterally. On the left, there is a focal 70 percent stenosis by NASCET criteria. There may be a small amount of adherent thrombus. On the right, there is a moderate stenosis, approximately 60 percent by NASCET criteria. There are moderate to severe bilateral vertebral artery origin stenoses. The soft tissues of the neck are within normal limits. There is evidence of diffuse idiopathic skeletal hyperostosis in the cervical spine, which is in normal alignment. IMPRESSION: 1. Severe proximal left ICA stenosis, 70 percent by NASCET, due to ulcerated plaque, possibly with a small amount of adherent thrombus. 2. Moderate proximal ICA stenosis, 60 percent by NASCET, due to ulcerated plaque. Please note that all CT scans at this facility use dose modulation, iterative reconstruction, and/or weight-based dosing when appropriate to reduce radiation dose to as low as reasonably achievable. Dictated by Chris Ballard MD @ 11/19/2023 8:06:50 PM (Electronically Signed)
--- NOTE | 2023-11-19 11:08 | CRLHL7_ITS ---
For Patients: As a result of the Century Cures Act, medical imaging exams and procedure reports are released immediately into your electronic medical record. You may view this report before your referring provider. If you have questions, please contact your health care provider. INDICATION: STROKE SYMPTOMS. HX OF STROKE COMPARISON: None TECHNIQUE: CT of the head without contrast. FINDINGS: Brain Parenchyma: Mild global cortical involutional changes. No acute infarct, acute intracranial hemorrhage, mass effect, or midline shift. Ventricles: No hydrocephalus. Ventricular enlargement, commensurate with the degree of cortical involutional changes and sulcal prominence. Extra-axial Spaces: No abnormal fluid collection. Paranasal sinuses: No significant mucosal thickening. Likely small mucous retention cyst in the left sphenoid sinus. Orbits: Unremarkable Mastoid Sinuses: Unremarkable Cranium: No acute fracture Soft tissues: Unremarkable IMPRESSION: No CT evidence of an acute intracranial process. Please note that all CT scans at this facility use dose modulation, iterative reconstruction, and/or weight-based dosing when appropriate to reduce radiation dose to as low as reasonably achievable. Dictated by Berto De La Cruz MD @ 11/19/2023 11:28:46 AM (Electronically Signed)
[2023-11-19] MEDS: 0.9 % SODIUM CHLORIDE 500 ML 500 ML IV (11:30)
[2023-11-19 11:39] LABS: Basophils Absolute Auto 0.05 K/uL (0.00-0.30); Basophils Percent Auto 0.8 % (0.0-3.0); Eosinophils Absolute Auto 0.24 K/uL (0.00-0.50); Eosinophils Percent Auto 3.9 % (0.0-7.0); Hematocrit 34.2 % (37.0-53.0); Hemoglobin* 11.6 gm/dL (13.5-17.5); Lymphocytes Percent Auto 14.8 % (20-44); Mean Corpuscular HGB Conc 34 gm/dL (32-36); Mean Corpuscular Hemoglobin 31 pg (26-34); Mean Corpuscular Volume 91 fL (80-100); Monocytes Percent Auto 6.8 % (0.0-11.0); Neutrophils Percent Auto 73.7 % (42.0-72.0); Platelet Count* 156 K/uL (140-440); RDW Coefficient of Variation % 12.2 % (11.5-15.5); Red Blood Count 3.75 m/uL (4.30-5.90); White Blood Count* 6.14 K/uL (4.50-11.00)
[2023-11-19 11:44] LABS: Slide Review Reflex No
[2023-11-19 11:53] LABS: Albumin* 4.1 g/dL (3.3-5.0)
[2023-11-19 11:54] LABS: Chloride* 107 mmol/L (96-114); Potassium* 4.2 mmol/L (3.6-5.1); Sodium* 137 mmol/L (135-149)
[2023-11-19 11:56] LABS: Creatinine* 1.3 mg/dL (0.5-1.5); Est. Creatinine Clearance* 66.63; Estimated Glomerular Filt Rate 59 ml/min; INR 0.95 (0.91-1.10); Prothrombin Time 13.2 Seconds
[2023-11-19 11:57] LABS: Alanine Aminotransferase* 31 U/L (4-50); Alkaline Phosphatase* 100 U/L (40-150); Anion Gap 8 mEq/L (7-15); Aspartate Amino Transferase* 31 U/L (12-35); Bilirubin Direct* 0.1 mg/dL (0.0-0.5); Bilirubin Total* 0.5 mg/dL (0.1-1.5); Blood Urea Nitrogen* 24 mg/dL (7-30); Carbon Dioxide* 22 mmol/L (20-32); Glucose* 153 mg/dL (60-115); Partial Thromboplastin Time* 26 Seconds (23-33); Total Protein* 6.4 g/dL (6.0-8.3)
[2023-11-19 11:58] LABS: Calcium* 9.3 mg/dL (8.4-10.6)
--- OUTSIDE RECORDS SUMMARY | 2023-11-19 11:59 | XMS_ITS | Encounter Summary ---
Author Organization [facility] Address [address] [place] [address] Care Team Providers Care Recreation Center Director Name Role Phone Unavailable Primary Care Provider Unavailabl e Encounter Details Date Type Department Care Team (Late st Contact Info) Description 08/20/2023 Clinical Communication Department of Radiation Oncology in [place], [place] [address] [place] [phone] Kev Hoffmann M.D. [address] [place] [address] Social History Tobacco Use Types Packs/Day Years Used Date Smoking Tobacco: Every Day Cigarettes 0.8 50.7 Started: 1975 Smokeless Tobacco: Never Alcohol Use Standard Drinks/Week Comments Yes 0 (1 standard drink = 0.6 oz pur e alcohol) 2 drinks/month [facility] Utilities Answer Date Recorded In the past 12 months has [employer], gas, oil, or water [employer] threatened to shut off services in your home? No 07/28/2023 Exercise Vital Sign Answer Date Recorde d On average, how many days pe r week do you engage in moderate to strenuous exercise (like a brisk walk)? 2 days 07/28/2023 On average, how many minutes do you engage in exercise at this level? 30 min 07/28/2023 Hunger Vital Sign Answer Date Recorded Within the past 12 months, y ou worried that your food would run out before you got the money to buy more. Never true 07/28/19 24 Within the past 12 months, t he food you bought just didn't last and you didn't have money to get more. Never true 07/28/2023 PRAPARE - Transportation Answer Date Re corded In the past 12 months, has l ack of transportation kept you from medical appointments or from getting medications? No 04/2023 In the past 12 months, has l ack of transportation kept you from meetings, work, or from getting things needed for daily living? No 07/28/2023 Nutrition Answer Date Recorded On average, how many serving s of fruits and vegetables do you eat per day (serving size is equal to 1 cup or approximately the size of a tennis ball)? 0-2 07/28/2023 Dental Answer Date Recorded Dental: Regular Dentist Yes 07/28/19 Employment Answer Date Recorded Employment status Retired 07/28/2023 Housing Stability Answer Date Recorded What is your living situation today? I have a [facility] place to live 07/28/2023 Sex and Gender Information Value Date Recorded Sex Assigned at Male 07/28/2023 10:23 AM CDT Gender Identity Male 07/28/2023 10:23 AM CDT Sexual Orientation Not on file documented as of this encounter Miscellaneous Notes * Telephone Encounter - May Calvert R.N. - 08/20/2023 2:10 PM CDT PHONE-CALL FOLLOW UP HISTORY OF PRESENT ILLNESS Chato He is a 68 y.o. male with Stage IA2 (cT1b, cN0, cM0) squamous cell carcinoma ofthe left lower lung cancer. Treatment Course: [id number] Plan ID Fractions Dose / Fraction (cGy) Dose Treated (cGy) Dose Planned (cGy) First Treatment Last Treatment Elapsed Days [id number] 1000 5000 5000 08/14/2023 08/20/2023 6 Course Summary 08/14/2023 08/20/2023 6 REASON FOR CALL Worsening neuropathy ASSESSMENT Patient reports that he is having worsening neuropathy in his feet over the past week. He is wondering if the radiation he received could be contributing to worsening neuropathy. PLAN Reviewed with patient that the radiation he received to his lung would not be the cause of worsening neuropathy in his feet. Discussed with patient that he should reach out to the provider who is currently managing his neuropathy. Understanding was verbalized and he had no further questions. Disposition/Recommendation: self-care - appropriate at this time, patient encouraged to call back with questions Information/Education: patient/caller able to teach back Caller agreeable to plan of care: yes The following references were used: nursing clinical judgement and provider Dr. Hoffmann * Telephone Encounter - Tamanna Donovan - 08/20/2023 11:02 AM CDT Other Reason for Call Caller: Patient Relationships to patient: Self Reason for call: Patient and his spouse have questions regarding patient's lymphedema symptoms. They would like a call at [phone] documented in this encounter Plan of Treatment Upcoming Encounters Date Type Department Care Team (Late st Contact Info) Description 11/19/2023 3:30 PM CDT Appointment Department of Radiation Oncology in [place], [place] [address] [place] [phone] Kev Hoffmann M.D. [address] [place] [address] documented as of this encounter Visit Diagnoses Not on filedocumented in this encounter
--- OUTSIDE RECORDS SUMMARY | 2023-11-19 11:59 | XMS_ITS | Encounter Summary ---
Author Organization [facility] Address [address] [place] [address] Care Team Providers Care Surgical Technologist Name Role Phone Unavailable Primary Care Provider Unavailabl e Encounter Details Date Type Department Care Team (Latest Contact Info) Description 08/20/2023 10:31 AM CDT - 08/20/2023 11:59 PM CDT Hospital Encounter Department of Radiation Oncology in [place], [place] [address] [place] [phone] Kev Hoffmann M.D. [address] [place] [address] Discharge Disposition: Home or Self Care Social History Tobacco Use Types Packs/Day Years Used Date Smoking Tobacco: Every Day Cigarettes 0.8 50.7 Started: 1975 Smokeless Tobacco: Never Alcohol Use Standard Drinks/Week Comments Yes 0 (1 standard drink = 0.6 oz pur e alcohol) 2 drinks/month [facility] Utilities Answer Date Recorded In the past 12 months has [employer], oil, or water [facility] threatened to shut off services in your [...] your living situation today? I have a [facility] place to live 07/28/2023 Sex and Gender Information Value Date Recorded Sex Assigned at Male 07/28/2023 10:23 AM CDT Gender Identity Male 07/28/2023 10:23 AM CDT Sexual Orientation Not on file documented as of this encounter Medications at Time of Discharge Medication Sig Dispensed Refills Start Date End Date amitriptyline (ELAVIL) 10 mg tablet Take 10 mg by mouth. 06/03/2023 amLODIPine (NORVASC) 10 mg tablet Take 1 tablet by mouth daily. 06/19/2022 aspirin 81 mg chewable tablet Chew 81 mg. 08/14/2022 blood sugar diagnostic strips (OneTouch Verio test strips) Dispense item covered by pt ins. E11.9 NIDDM type II - Test 3 times/day, Reason: High A1C 02/11/2023 diclofenac sodium (VOLTAREN) 1 % gel Apply 4 g topically. 06/03/2023 glipiZIDE (GLUCOTROL XL) 10 mg 24 hr tablet Take 20 mg by mouth. 06/26/2022 HYDROcodone-acetaminop hen (NORCO) 5-325 mg per tablet Take one tablet by mouth two times a day as needed for pain. Max acetaminophen dose: 4000 mg in 24 hrs. Rx to last 30 days. use dates:07/15/23-08/13/23 07/15/2023 lisinopriL (PRINIVIL,ZESTRIL) 40 mg tablet Take 1/2 tablet (20 mg) twice daily 07/20/2022 metFORMIN (GLUCOPHAGE) 1,000 mg tablet Take 1,000 mg by mouth. 08/14/2022 omega-3 fatty acids-fish oil 340-1,000 mg per capsule Take 1 g by mouth. Ozempic 1 mg/dose (4 mg/3 mL) injection Inject 1 mg under the skin over 168 hr. 06/02/2023 sennosides (SENOKOT) 8.6 mg tablet Take 1 tablet by mouth daily. documented as of this encounter Plan of Treatment Upcoming Encounters Date Type Department Care Team (Late st Contact Info) Description 11/19/2023 3:30 PM CDT Appointment Department of Radiation Oncology in [place], [place] [address] [place] [phone] Kev Hoffmann M.D. [address] [place] [address] documented as of this encounter Visit Diagnoses Not on filedocumented in this encounter
--- OUTSIDE RECORDS SUMMARY | 2023-11-19 11:59 | XMS_ITS | Referral Summary ---
Author Organization [facility] Address [address] [place] [address] Care Team Providers Care Superintendent Plant Protection Name Role Phone Unavailable Primary Care Provider Unavailabl e Source Comments Patient records contain information from all sites at [facility]. For routine questions regarding patient records, call [phone] during business hours, M-F 8:00 AM - 5:00 PM Central Time. Record requests for emergency care only can be directed to [phone] at any time.[facility] Encounters Date Type Department Care Team Description 08/19/2023 10:59 AM CDT - 09/02/2023 7:04 PM CDT Hospital Encounter Department of Radiation Oncology in [address] [address] Kev Hoffmann M.D. 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 08/20/2023 Clinical Communication Department of Radiation Oncology in [address] [address] Kev Hoffmann M.D. 08/20/2023 10:31 AM CDT - 08/20/2023 11:59 PM CDT Hospital Encounter Department of Radiation Oncology in [address] [address] Kev Hoffmann M.D. Discharge Disposition: Home or Self Care 08/19/2023 10:58 AM CDT Hospital Encounter Department of Radiation Oncology in [place], [place] [address] [place] [address] Kev Hoffmann M.D. Discharge Disposition: Home or Self Care from Last 3 Months Allergies No known active allergies Medications Medication Sig Dispensed Refills Start Date End Date Status amitriptyline (ELAVIL) 10 mg tablet Take 10 mg by mouth. 06/03/2023 Acti ve amLODIPine (NORVASC) 10 mg tablet Take 1 tablet by mouth daily. 06/19/2022 Active aspirin 81 mg chewable tablet Chew 81 mg. 08/14/2022 Active blood sugar diagnostic strips (Soil IQ Verio test strips) Dispense item covered by pt ins. E11.9 NIDDM type II - Test 3 times/day, Reason: High A1C 02/11/2023 Active diclofenac sodium (VOLTAREN) 1 % gel Apply 4 g topically. 06/03/2023 Active glipiZIDE (GLUCOTROL XL) 10 mg 24 hr tablet Take 20 mg by mouth. 06/26/2022 Active HYDROcodone-acetami nophen (NORCO) 5-325 mg per tablet Take one tablet by mouth two times a day as needed for pain. Max acetaminophen dose: 4000 mg in 24 hrs. Rx to last 30 days. use dates:07/15/23-07/15/2023 Active lisinopriL (PRINIVIL,ZESTRIL) 40 mg tablet Take 1/2 tablet (20 mg) twice daily 07/20/2022 Active metFORMIN (GLUCOPHAGE) 1,000 mg tablet Take 1,000 mg by mouth. 08/14/2022 Active omega-3 fatty acids-fish oil 340-1,000 mg per capsule Take 1 g by mouth. Active Ozempic 1 mg/dose (4 mg/3 mL) injection Inject 1 mg under the skin over 168 hr. 06/02/2023 Active sennosides (SENOKOT) 8.6 mg tablet Take 1 tablet by mouth daily. Active Active Problems Problem Noted Date Diagnosed Date Malignant Neoplasm Of Lung Lower Lobe Or Bronchu s Left 07/22/2023 Cancer Staging:Clinical stage from 07/04/2023:Stage IA2(cT1b, cN0, cM0) - Unsigned Social History Tobacco Use Types Packs/Day Years Used Date Smoking Tobacco: Every Day Cigarettes 0.8 50.7 Started: 1973 Smokeless Tobacco: Never Alcohol Use Standard Drinks/Week Comments Yes 0 (1 standard drink = 0.6 oz pur e alcohol) 2 drinks/month [facility] Utilities Answer Date Recorded In the past 12 months has th e electric, gas, oil, or water company threatened to shut off services in your [...] money to buy more. Never true 07/28/19 Within the past 12 months, t he [...] your living situation today? 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 [address] [place] [address] Procedures Procedure Name Priority Date/Time Associated Diagnosis Comments OUTSIDE CT BODY Routine 11/12/2023 11:10 AM CDT ARIA COURSE COMPLETE TREATMENT INFORMATION Routine 08/20/2023 10:53 AM CDT ARIA DAILY TREATMENT INFORMATION Routine 08/20/2023 10:53 AM CDT ARIA DAILY TREATMENT INFORMATION Routine 08/19/2023 11:19 AM CDT HXZZORDERS Routine 08/14/2011 2:[address] ABDOMEN WITHOUT IV CONTRAST Routine 07/27/2006 4:40 AM CDT from Last 3 Months or Most Recently Relevant to Health Maintenance Results * CT CHEST W-Outside CT Body (11/12/2023 11:10 AM CDT) Narrative IIMS - 11/13/2023 10:02 AM CDT This order has been created and auto-finalized to support the import of outside images. If available, original interpretation can be found on the Media Tab in Chart Review, in Document Viewer, as an image in QREADS or as an Addendum. If a re-interpretation or overread is required please follow defined workflow.?? Provider Not In System IMG CT PROCEDURES IIWY NA * Aria Course Complete Treatment Information (08/20/2023 10:53 AM CDT) Course ID [id number] BRUNO ARIA Course Start Date 4 09:29 CDT BRUNO ARIA Course End Date 4 14:29 CDT BRUNO ARIA First Treatment Date 4 15:41 CDT BRUNO ARIA Last Treatment Date 4 10:53 CDT BRUNO ARIA Treatment Elapsed Days 6 BRUNO ARIA Reference Point [id number] BRUNO ARIA Dosage Given to Date cGy 5000 BRUNO ARIA Plan ID [id number] BRUNO ARIA Fractions Treated to Date 5 BRUNO ARIA Planned Total Fractions 5 BRUNO ARIA Prescribed Dose Per Fraction 1000 BRUNO ARIA Prescription Dose in cGy 5000 BRUNO ARIA Plan Primary Reference Point [id number] BRUNO ARIA 08/20/2023 10:5 3 AM CDT Provider Not In System RADIATION ONCOLOG Y ORDERABLES DAMION BLANCO na * Aria Daily Treatment Information (08/20/2023 10:53 AM CDT) Only the most recent of2 resultswithin the time period is included. Course ID [id number] rSBRT BRUNO ARIA Course Start Date 4 09:29 CDT BRUNO ARIA First Treatment Date 4 15:41 CDT BRUNO ARIA Last Treatment Date 4 10:53 CDT BRUNO ARIA Treatment Elapsed Days 6 BRUNO ARIA Reference Point [id number] BRUNO ARIA Dosage Given to Date cGy 5000 BRUNO ARIA Session Dosage Given 1000 BRUNO ARIA Plan ID [id number] BRUNO ARIA Fractions Treated to Date 5 BRUNO ARIA Planned Total Fractions 5 BRUNO ARIA Prescribed Dose Per Fraction 1000 BRUNO ARIA Prescription Dose in cGy 5000 BRUNO ARIA Plan Primary Reference Point [id number] BRUNO ARIA 08/20/2023 10:5 3 AM CDT Provider Not In System RADIATION ONCOLOG Y ORDERABLES [place] FRANCIS na * HXZZORDERS (08/14/2011 2:46 PM CDT) HXHep C Ab-[place] Negative Negative POWERCHART Comment: Jmcpsx-tu-[id number] ratio is <1.00. Test Performed by: [place] [address] Application Development Project Manager: Octavio Harris III, M.D. Blood 08/14/2011 2:46 PM CDT Maria E Gutierres P.A.-C. LAB HISTORICAL O RDERS POWERCHART * CT Abdomen without IV Contrast (07/27/2006 4:40 AM CDT) Anatomical Region Laterality Modality Abdomen N/A Computed Tomogra phy 07/27/2006 4:40 AM CDT Narrative 07/27/2006 4:40 AM CDT Originally Signed By Contributor_system [facility]_HX_RAD_SYS INDICATION: ??Right abdominal back pain. CT OF THE ABDOMEN AND PELVIS - 07/27/06: ??Noncontrast CT of the abdomen and pelvis is negative for renal or ureteral stones. ??A normal appendix is identified. ??There are aortoiliac vascular calcifications. Examination is otherwise unremarkable. REPORT SIGNATURE ON FILE 07/30/2006 Reported By: Neymar Graham M.D. Signed By: Neymar Graham MD Transcribed: 07/28/2006 ([id number]) ??[facility]CSO.AL CC: Marko Foster ?? Procedure Note Provider, Vic Edmonds - 07/31/2016 Originally Signed By Contributor_system [facility]_HX_RAD_SYS INDICATION: Right abdominal back pain. CT OF THE ABDOMEN AND PELVIS - 07/27/06: Noncontrast CT of the abdomen and pelvis is negative for renal or ureteral stones. A normal appendix is identified. There are aortoiliac vascular calcifications. Examination is otherwise unremarkable. REPORT SIGNATURE ON FILE 07/30/2006 Reported By: Neymar Graham M.D. Signed By: Neymar Graham MD Transcribed: 07/28/2006 ([id number]) RCSO.AL CC: Marko Foster MD Historical Provider IMG CT PROCEDURES from Last 3 Months or Most Recently Relevant to Health Maintenance
--- OUTSIDE RECORDS SUMMARY | 2023-11-19 11:59 | XMS_ITS | Encounter Summary ---
Author Organization [facility] Address [address] [place] [address] Care Team Providers Care Brake Assembler Name Role Phone Unavailable Primary Care Provider Unavailabl e Encounter Details Date Type Department Care Team (Latest Contact Info) Description 08/18/2023 11:05 AM CDT - 08/18/2023 11:59 PM CDT Hospital Encounter Department of Radiation Oncology in [place], [place] [address] [place] [address] Kev Hoffmann M.D. [address] [place] [address] Discharge Disposition: Home or Self Care Social History Tobacco Use Types Packs/Day Years Used Date Smoking Tobacco: Every Day Cigarettes 0.8 50.7 Started: 1975 Smokeless Tobacco: Never Alcohol Use Standard Drinks/Week Comments Yes 0 (1 standard drink = 0.6 oz pur e alcohol) 2 drinks/month [facility] Utilities Answer Date Recorded In the past 12 months has [email or web address], oil, or water [employer] threatened to shut off services in your [...] your living situation today? I have a [facility] place to live 07/28/2023 Sex and Gender [...] CDT Appointment Department of Radiation Oncology in [place], [place] [address] [place] [address] Kev Hoffmann M.D. [address] [place] [address] documented as of this encounter Visit Diagnoses Not on filedocumented in this encounter
--- OUTSIDE RECORDS SUMMARY | 2023-11-19 11:59 | XMS_ITS | Encounter Summary ---
Author Organization [facility] Address [address] [place] [address] Care Team Providers Care Ship Erector Name Role Phone Unavailable Primary Care Provider Unavailabl e Encounter Details Date Type Department Care Team (Latest Contact Info) Description 08/14/2023 3:02 PM CDT - 08/14/2023 11:59 PM CDT Hospital Encounter Department of Radiation Oncology in [place], [place] [address] [place] [address] Kev Hoffmann M.D. [address] [place] [address] Discharge Disposition: Home or Self Care Social History Tobacco Use Types Packs/Day Years Used Date Smoking Tobacco: Every Day Cigarettes 0.8 50.7 Started: 1975 Smokeless Tobacco: Never Alcohol Use Standard Drinks/Week Comments Yes 0 (1 standard drink = 0.6 oz pur e alcohol) 2 drinks/month [facility] Utilities Answer Date Recorded In the past 12 months has [employer], oil, or water [employer] threatened to shut off services in your [...] your living situation today? I have a [facility] place to live 07/28/2023 Sex and [...] CDT Appointment Department of Radiation Oncology in [place], [place] [address] [place] [address] Kev Hoffmann M.D. [address] [place] [address] documented as of this encounter Visit Diagnoses Not on filedocumented in this encounter
--- OUTSIDE RECORDS SUMMARY | 2023-11-19 11:59 | XMS_ITS | Encounter Summary ---
Author Organization [facility] Address [address] [place] [address] Care Team Providers Care Tile Sorter Name Role Phone Unavailable Primary Care Provider Unavailabl e Encounter Details Date Type Department Care Team (Latest Contact Info) Description 08/15/2023 10:01 AM CDT - 08/15/2023 11:59 PM CDT Hospital Encounter Department of Radiation Oncology in [place], [place] [address] [place] [address] Kev Hoffmann M.D. [address] [place] [address] Discharge Disposition: Home or Self Care Social History Tobacco Use Types Packs/Day Years Used Date Smoking Tobacco: Every Day Cigarettes 0.8 50.7 Started: 1975 Smokeless Tobacco: Never Alcohol Use Standard Drinks/Week Comments Yes 0 (1 standard drink = 0.6 oz pur e alcohol) 2 drinks/month [facility] Utilities Answer Date Recorded In the past 12 months has [employer], oil, or water [employer] threatened to shut off services in your [...] your living situation today? I have a [facility] place to live 07/28/2023 Sex and Gender [...] CDT Appointment Department of Radiation Oncology in [place], [place] [address] [place] [address] Kev Hoffmann M.D. [address] [place] [address] documented as of this encounter Visit Diagnoses Not on filedocumented in this encounter
--- OUTSIDE RECORDS SUMMARY | 2023-11-19 11:59 | XMS_ITS | Encounter Summary ---
Author Organization [facility] Address [address] [place] [address] Care Team Providers Care Senior Maintenance Technician Name Role Phone Dorinda Washington DO Primary Care Provider [phone] Encounter Details Date Type Department Care Team (Late st Contact Info) Description 09/22/2023 Documentation Only [facility] [address] [place] [address] No, Pcp Social History Tobacco Use Types Packs/Day Years Used Date Smoking Tobacco: Every Day Cigarettes Alcohol Use Standard Drinks/Week Comments Yes 0 (1 standard drink = 0.6 oz pure alcohol) Alcoholic Drinks/day: Occasional social drink Sex and Gender Information Value Date Recorded Sex Assigned at Not on file Gender Identity Not on file Sexual Orientation Not on file documented as of this encounter Plan of Treatment Upcoming Encounters Date Type Department Care Team (Late st Contact Info) Description 12/09/2023 1:30 PM EDT Office Visit [facility] [address] [place] [address] Feliciano Soria MD [address] [place] [address] documented as of this encounter Visit Diagnoses Not on filedocumented in this encounter Care Teams Senior Maintenance Technician Relationship Specialty Start Date End Date Dorinda Washington DO [address] [place] [address] PCP - General Family Medicine 09/22/23 documented as of this encounter
--- OUTSIDE RECORDS SUMMARY | 2023-11-19 11:59 | XMS_ITS | Clinical Summary ---
Author Organization [facility] Address [address] [address] Phone Care Team Providers Care Tool Grinder Name Role Phone Unavailable Primary Care Provider Unavailabl e Allergies No known active allergies Medications Medication Sig Dispensed Refills Start Date End Date Status amLODIPine (Norvasc) 10 MG tablet 07/24/2022 Active lisinopril (Prinivil, Zestril) 40 MG tablet TAKE ONE TABLET BY MOUTH EVERY DAY FOR HYPERTENSION 07/20/2022 Active meclizine (Antivert) 25 MG tablet TAKE 1 TABLET (25 MG) BY MOUTH 3 TIMES DAILY NEEDED FOR DIZZINESS 06/17/2022 Active HYDROcodone-acetami nophen ([place]) 5-325 MG oral tablet Take 0.5-1 Tablets by mouth one time a day as needed for Pain. Limit acetaminophen to 4000 mg per day from all sources. Active aspirin 81 MG chewable tablet Chew and swallow 1 Tablet one time a day. Take with food. 08/14/2022 Active atorvaSTATin (Lipitor) 80 MG tablet Take 1 Tablet by mouth at bedtime. 08/14/2022 Active metFORMIN (Glucophage) 1000 MG tablet Take 1 Tablet by mouth two times a day with meals. Take with food. 08/14/2022 Active ticagrelor (Brilinta) 90 MG tablet Take 1 Tablet by mouth two times a day. 60 Each 1 08/14/2022 Active Active Problems Problem Noted Date Diagnosed Date Smoking 08/03/2022 Stroke 08/03/2022 Thrombolytic medication administered within last 5 days 08/03/2022 Essential hypertension 12/25/2020 Diabetes mellitus type 2 in nonobese 03/04/2012 08/03/2022 Overview: Diagnosed 01/2012 a system change updated this record. This will not affect patient care or billing. This comment can be deleted. Foot ulcer, left 03/04/2012 08/03/2022 Immunizations Name Administration Dates Next Due Hepatitis B NOS 08/09/1991 TD >7yrs With Preservative 01/10/1971 Surgical History Surgery Date Site/Laterality Comments PERIPHERAL VASCULAR PROCEDURE 08/09/2022 N/A Procedure: PV DIAGNOSTIC CEREBRAL ANGIOGRAM W/POSSIBLE INTERVENTION; Surgeon: Durga Fernandez MBBS; Location: [facility] Social History Tobacco Use Types Packs/Day Years Used Date Smoking Tobacco: Every Day Cigarettes Smokeless Tobacco: Never Tobacco Cessation:Ready to Q uit: Not Asked; Counseling Given: Not Answered Comments:Around 15 cigarettes a day EH IP Custom IPV Answer Date Recorded Do you feel UNSAFE in any of your personal relationships with your family members or any other acquaintances? No 2022 Sex and Gender Information Value Date Recorded Sex Assigned at Not on file Gender Identity Not on file Sexual Orientation Not on file Job Start Date Occupation Industry Not on file Not on file Not on file Obstetrics History Last Filed Vital Signs Vital Sign Reading Time Taken Comments Blood Pressure 135/82 08/14/2022 9:54 AM CDT Pulse 98 08/14/2022 9:54 AM CDT Temperature 36.5 ??C (97.7 ??F) 08/14/2022 9:54 AM CD T Respiratory Rate 16 08/14/2022 9:54 AM CDT Oxygen Saturation 96% 08/14/2022 9:54 AM CDT Inhaled Oxygen Concentration - - Weight 100.8 kg (222 lb 3.6 oz) 2022 4:15 AM CDT Height 195.6 cm (6' 5) 08/03/2022 3:32 PM CDT Body Mass Index 26.35 08/03/2022 3:32 PM CDT Plan of Treatment Health Maintenance Due Date Last Done Comments CT Colonography 1953 Cologuard 1955 Colonoscopy 1953 Colorectal Cancer Screening 1953 FIT/FOBT 1953 Sigmoidoscopy 1953 Pneumococcal Vaccine: 65+ yrs (Standing Order) (1 of 2 - PCV) 08/05/1959 DIABETES MICROALBUMIN Q1 YEAR (Standing Order) 08/05/1971 DIABETIC EYE EXAM 08/05/1971 PERTUSSIS (Standing Order) 1972 TETANUS (Standing Order) 01/10/1981 01/10/1971 Hepatitis B Vaccine (Standing Order) (2 of 3 - 19+ 3-dose series) 09/06/1991 08/09/1991 Shingrix (Zoster recombinant) vaccine (Standing Order) (1 of 2) 08/05/2003 Abdominal Aortic Aneurysm (AAA) Screening 2018 DIABETES HGB A1C Q6 MONTHS (Standing Order) 02/03/2023 2022, 07/12/2020 DIABETES SERUM CREATININE Q1 YEAR (Standing Order) 10/04/2023 10/03/2022, 09/18/2022, 09/17/2022, Additional history exists COVID-19 Vaccine ( season) 2023 Influenza Vaccine Seasonal (Standing Order) (#1) 2023 Diab/Vasc Lipid Profile Q5 years (Standing Order) 08/05/2027 2022, 2022 HPV Vaccine (Standing Order) Aged Out No longer eligible based on patient's age to complete this topic Procedures Procedure Name Priority Date/Time Associated Diagnosis Comments BASIC METABOLIC PANEL Routine 10/03/2022 11:27 AM CDT LIPID PROFILE Routine 2022 3:59 AM CDT HEMOGLOBIN A1C Routine 2022 3:59 AM CDT from Last 3 Months or Most Recently Relevant to Health Maintenance Results * (ABNORMAL) HEMOGLOBIN A1C (2022 3:59 AM CDT) Hemoglobin A1c 7.7(H) 4.0 - 5.6 % 2022 4:23 AM CDT [facility] Estimated Average Glucose 174 mg/dL 2022 4:23 AM CDT [facility] Blood BLOOD SPECIMEN / Unknown Venipuncture / Unknown 2022 3:59 AM CDT 2022 4:07 AM CDT Narrative [facility] - 2022 4:23 AM CDT HGA1C Reference Ranges ??>= 6.5 ?? Diabetes* ??5.7-6.4 ??Impaired glucose tolerance ?? <5.7 ?Normal *In the absence of unequivocal hyperglycemia, results should be confirmed by repeat testing for the diagnosis of diabetes. [employer] 2018 ?? Herman Snow DO EC CHEMISTRY ORDER PAN ABN [facility] [address] [place] [address], [facility] * (ABNORMAL) LIPID PANEL (2022 3:59 AM CDT) [facility] Signature Cholesterol 186 0 - 200 mg/dL 2022 4:29 AM CDT [facility] HDL Cholesterol 40(L) >40 mg/dL 4:29 AM CDT [facility] Non-HDL Cholesterol 146(H) 0 - 130 mg/dL 2022 4:29 AM CDT [facility] Triglycerides 164 <175 mg/dL 2022 4:29 AM CDT [facility] LDL Cholesterol, Calculated 113(H) 0 - 100 mg/dL 2022 4:29 AM CDT [facility] Blood BLOOD SPECIMEN / Unknown Venipuncture / Unknown 2022 3:59 AM CDT 2022 4:15 AM CDT Narrative [facility] - 2022 4:29 AM CDT Total Cholesterol Reference Ranges Optimal: <200 mg/dL Borderline High: 200-239 mg/dL High: > or = 240 mg/dL Triglycerides Reference Ranges Optimal: 10-200 mg/dL Borderline High: 150-200 mg/dL High: 201-499 mg/dL Very High: > or = 500 mg/dL LDL Cholesterol Reference Ranges Optimal: <100 mg/dL Near Optimal: 100-129 mg/dL Borderline High: 130-159 mg/dL High: 160-189 mg/dL Very High: > or = 190 mg/dL Herman Snow DO EC CHEMISTRY ORDER PAN ABN [facility] [address] [place] [address], [facility] from Last 3 Months or Most Recently Relevant to Health Maintenance Advance Directives For more information, please contact: [phone] * Full Code (Latest Code Status on File) Date Activated Date Inactivated Comments 08/03/2022 4:23 PM 08/14/2022 3:22 PM * Full Code/Unaddressed Date Activated Date Inactivated Comments 08/03/2022 1:07 PM 08/03/2022 4:23 PM
--- OUTSIDE RECORDS SUMMARY | 2023-11-19 11:59 | XMS_ITS | Encounter Summary ---
Author Organization 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 [address] [place] [address] [facility] Region Referral ID Status Reason Start Date Expiration Date Visits Re quested Visits Authorized [id number] Closed 07/30/2023 07/29/2024 1 1 Encounter Details Date Type Department Care Team (Latest Contact Info) Description 08/11/2023 10:00 AM CDT - 08/12/2023 6:39 PM CDT Hospital Encounter Department of Radiation Oncology in [place], [place] [address] [place] [address] Kve Hoffmann M.D. 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 I have a [facility] place to live 07/28/2023 Sex [...] 81 mg. 08/14/2022 blood sugar diagnostic strips ([employer] Verio test strips) Dispense item covered by [...] mouth daily. 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 Authorized by: Kev Hoffmann M.D. Simulation was performed under physician supervision based on physician order in preparation for radiation therapy. Physician was immediately available to provide assistance and direction throughout the procedure. Written consent for treatment was completed or confirmed. The patient was appropriately identified and placed in the treatment position using the necessary immobilization to ensure a reproducible treatment position. Reference keene were placed to facilitate marking of isocenter. Area scanned:Chest Contrast used for the simulation procedure: IV Patient position:head first supine and arms up Custom immobilization: Vac-belinda Motion management: 4D CT scan and Breath hold scan Bolus: No CT guidance: Following positioning of the patient, a series of slices was obtained to be utilized in treatment planning. CT images were transferred to the G.I. Windows treatment planning system, after a reference isocenter was determined and marked. Segmentation and treatment planning will take place prior to treatment delivery. Patient set up and imaging was appropriate and completed without incident. Creative Writing Teacher use:No Associated attestation - Kev Hoffmann M.D. - 08/12/2023 6:39 PM CDT I was available for the entirety of the procedure but not present. Signed by: Kev Hoffmann M.D. 08/12/23 6:39 PM CDT [facility] Radiation Therapy [facility] documented in this encounter Plan of Treatment Upcoming Encounters Date Type Department Care Team (Late st Contact Info) Description 11/19/2023 3:30 PM CDT Appointment Department of Radiation Oncology in [place], [place] [address] [place] [address] Kev Hoffmann M.D. 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 08/11/2023 10:32 AM Initial Rad Onc Treatment Planning CT Simulation Performed by: Kev Hoffmann M.D. Authorized by: Kev Hoffmann M.D. ?? Kev Hoffmann M.D. 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
--- OUTSIDE RECORDS SUMMARY | 2023-11-19 11:59 | XMS_ITS ---
Author Organization [facility] Address [address] [place] [id number] Care Team Providers Care Circus Artist Name Role Phone Unavailable Primary Care Provider Unavailabl e Active Problems Problem Noted Date Diagnosed Date Malignant Neoplasm Of Lung Lower Lobe Or Bronchu s Left 07/22/2023 Cancer Staging:Clinical stage from 07/04/2023:Stage IA2(cT1b, cN0, cM0) - Unsigned Current Oncology Plans No current plan information found. Past Plans No past plan information found. Radiation Treatments * Plan Last Treated On Elapsed Days Fractions Treated Prescribed Fraction Dose Prescribed Total Dose [id number] 08/20/2023 6 5 of 5 1,000 cGy 5,000 cG y Reference Point Last Treated On Elapsed Days Session Dose Total Dose [id number] 08/20/2023 6 1,000 cGy 5,000 cGy
--- OUTSIDE RECORDS SUMMARY | 2023-11-19 11:59 | XMS_ITS | Encounter Summary ---
Author Organization [facility] Address [address] [place] [address] Care Team Providers Care Head Of Science Name Role Phone Unavailable Primary Care Provider Unavailabl e Encounter Details Date Type Department Care Team (Late st Contact Info) Description 08/20/2023 Documentation Department of Radiation Oncology in [place], [place] [address] [place] [phone] Kev Hoffmann M.D. [address] [place] [address] Social History Tobacco Use Types Packs/Day Years Used Date Smoking Tobacco: Every Day Cigarettes 0.8 50.7 Started: 1975 Smokeless Tobacco: Never Alcohol Use Standard Drinks/Week Comments Yes 0 (1 standard drink = 0.6 oz pur e alcohol) 2 drinks/month [facility] Utilities Answer Date Recorded In the past 12 months has [employer], gas, oil, or water [employer] threatened to shut off services in your [...] your living situation today? I have a [facility] place to live 07/28/2023 Sex and Gender Information Value Date Recorded Sex Assigned at Male 07/28/2023 10:23 AM CDT Gender Identity Male 07/28/2023 10:23 AM CDT Sexual Orientation Not on file documented as of this encounter Miscellaneous Notes * Radiation Completion Notes - Fidelina Avilez R.N. - 08/20/2023 11:59 PM CDT DIAGNOSIS: 1. 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 ([id number]) Treatment Intent: Curative Concomitant Therapy: None Single Plan Treatment Course: [id number] Plan ID Fractions Dose / Fraction (cGy) Dose Treated (cGy) Dose Planned (cGy) First Treatment Last Treatment Elapsed Days [id number] 1000 5000 5000 08/14/2023 08/20/2023 6 Course Summary 08/14/2023 08/20/2023 6 Radiation Modality: Photons CLINICAL SUMMARY Chato He completed radiation treatment as planned without interruptions. The course of treatment was tolerated well. The patient experienced no toxicities during radiation treatment. TREATMENT RESPONSE: Response to treatment will be determined by post-treatment imaging and/or laboratory work. RECOMMENDED FOLLOW UP: Primary Medical Oncologist. Dr. Silva is scheduled to see patient on August. We will order chest CT with IV contrast and creatine check to be completed in 3 months. We will schedule CT at [facility]. Dr. Hoffmann will follow up with patient soon after CT has been completed. Signed by: Fidelina Avilez R.N., 08/26/2023 3:57 PM CDT [facility] [address] [place] [address] documented in this encounter Plan of Treatment Upcoming Encounters Date Type Department Care Team (Late st Contact Info) Description 11/19/2023 3:30 PM CDT Appointment Department of Radiation Oncology in [place], [place] [address] [place] [address] Kev Hoffmann M.D. 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
--- OUTSIDE RECORDS SUMMARY | 2023-11-19 11:59 | XMS_ITS | Encounter Summary ---
Author Organization [facility] Address [address] [place] [address] Care Team Providers Care Tawer Name Role Phone Unavailable Primary Care Provider Unavailabl e Reason for Referral * Outpatient (Routine) - Closed Specialty Diagnoses / Procedures Referred By Laila soto Referred To Contact Radiation Oncology Kev Hoffmann M.D. [address] [place] [address] [facility] Referral ID Status Reason Start Date Expiration Date Visits Re quested Visits Authorized [id number] Closed 07/30/2023 01/28/2025 1 1 Reason for Visit * Outpatient (Routine) - Closed Specialty Diagnoses / Procedures Referred By Laila soto Referred To Contact Radiation Oncology Kev Hoffmann M.D. [address] [place] [address] [facility] Referral ID Status Reason Start Date Expiration Date Visits Re quested Visits Authorized [id number] Closed 07/30/2023 01/28/2025 1 1 Encounter Details Date Type Department Care Team (Latest Contact Info) Description 08/11/2023 8:35 AM CDT - 08/12/2023 6:38 PM CDT Hospital Encounter Department of Radiation Oncology in [place], [place] [address] [place] [address] Kev Hoffmann M.D. 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 I have a [facility] place to live 07/28/2023 Sex and Gender Information Value Date Recorded Sex Assigned at Male 07/28/2023 10:23 AM CDT Gender Identity Male 07/28/2023 10:23 AM CDT Sexual Orientation Not on file documented as of this encounter Last Filed Vital Signs Vital Sign Reading Time Taken Comments Blood Pressure 135/72 08/11/2023 8:50 AM CDT Pulse 92 08/11/2023 8:50 AM CDT Temperature 36.2 ??C (97.1 ??F) 08/11/2023 8:50 AM CD T Respiratory Rate - - Oxygen Saturation - - Inhaled Oxygen Concentration - - Weight 107 kg (235 lb 14.3 oz) 08/11/2023 8:50 A M CDT Height - - Body Mass Index - - documented in this encounter Medications at Time of Discharge Medication Sig Dispensed Refills Start Date End Date amitriptyline (ELAVIL) 10 mg tablet Take 10 mg by mouth. 06/03/2023 amLODIPine (NORVASC) 10 mg tablet Take 1 tablet by mouth daily. 06/19/2022 aspirin 81 mg chewable tablet Chew 81 mg. 08/14/2022 blood sugar diagnostic strips ([employer] Verio test strips) Dispense item covered by [...] mouth daily. documented as of this encounter Progress Notes * Cara Solis M.D. - 08/11/2023 9:00 AM CDT Images from the original note were not included. RADIATION ONCOLOGY FOLLOW UP VISIT Supervising Race Car Mechanic: Dr. Kev Hoffmann CHIEF COMPLAINT/REASON FOR VISIT Visit prior to radiation simulation scan SUBJECTIVE VISIT DIAGNOSIS LLL squamous cell carcinoma cT1b, N0; Stage IA2 Pt preference for radiation INTERVAL HISTORY: Mr. He is a 68 y.o. male with history of stage 3b chronic kidney disease, type II diabetes, and stroke who presents today prior to simulation scan for SBRT after meeting with radiation and surgery to discuss his recently diagnosed early stage squamous cell lung cancer. 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 LUNG-RADS CATEGORY 4B: Suspicious. (<15% risk of malignancy) -Solid nodule(s): Greater than or equal to 15 mm; or new or growing, and greater than or equal to 8mm -Sub solid nodule(s): Solid component greater than or equal to 8 mm; or new or growing greater thanor equal to 4 mm solid component 02/18/2023 Other Pulmonary function testing demonstrated FVC 6.33 (110% reference), FEV1 4.58 (108% reference), and DLCO 26.6 (98% reference). 02/19/2023 Critical Imaging PET-CT IMPRESSION: Findings suspicious for a left lower lobe primary lung neoplasm without metastasis. 02/19/2023 Other Thoracic Oncology Outpatient Clinic consultation with Dr. Saul Dean. Recommended robotic navigation bronchoscopy and biopsy. Patient plans on going to [place] the following week and is not interested in changing his plans. Repeat CT scan in 3 months. 06/02/[address] Chest Impression: Increased size of suspicious spiculated nodule left lower lobe adjacent to the bronchovascular bundle measuring 14 millimeters. Bronchoscopic biopsy recommended. 07/04/2023 Surgery and Procedures PROCEDURE: Bronchoscopy with RAB/radial EBUS/floro for FNA/transbronchial biopsies from left lower lobe nodule and EBUS FNA of hilar/mediastinal nodes under GA SURGEON: Ratna Werner MD Findings: Airway inspection- Mid to distal trachea and bilateral bronchial tree with no endobronchial lesion Thick clear secretions present Intervention- RAB/REBUS/floro for FNA of nodule at left lower lobe Rapid onsite- Positive for malignancy Abbreviated lymph node examination, short axis approximate millimeter- Station 7 6 mm Station 4L nondescript Station 11 L 6 mm Intervention- EBUS FNA using 22-gauge needle from nodes at station 7 and 11 L Rapid onsite- Station 7 with lymphocytes Station 11 no lymphocytes A) LEFT LUNG, LOWER LOBE, FINE-NEEDLE ASPIRATION AND TRANSBRONCHIAL BIOPSIES: Positive for malignancy; Squamous cell carcinoma B) LYMPH NODE, STATION 7 SUBCARINAL, ENDOBRONCHIAL ULTRASOUND-GUIDED FINE-NEEDLE ASPIRATION: 1. Negative for malignancy 2. Lymphocytes consistent with sampled lymph node Final Diagnosis: C) LYMPH NODE, STATION 11 L INTERLOBAR, ENDOBRONCHIAL ULTRASOUND-GUIDED FINE- NEEDLE ASPIRATION: 1. Nondiagnostic specimen 2. Insufficient lymphocytes to assure adequate lymph node sampling 07/14/2023 Critical Imaging PET-CT IMPRESSION: 1. FDG avid left lower lobe pulmonary nodule compatible with biopsy-proven malignancy. This is mildly increased in size from 02/19/2023. 2. No evidence of FDG avid metastatic disease. 07/14/2023 Other Per report (records not available for review), patient met with Dr. Juárez who recommended a left lower lobectomy. Patient had concerns about removing an entire lobe. Patient preferred surgery to radiation and would like a second opinion. 07/17/2023 Other Surgery consultation with Dr. Douglas Kathleen who discussed that given the central location of the cancerous nodule in the left lower lobe, surgical resection would require a left lower lobectomy. Stereotactic radiation as an alternative was discussed. Referral to Radiation Oncology. Discussed potential surgical procedure of a robotic assisted left VATS, left lower lobectomy and thoracic lymph node dissection. The patient was leaning toward surgical resection but appropriately would like to defer his final decision until after radiation oncology consultation. 07/30/2023 Tumor Board Recommendation: We agree with left lower lobectomy as primary treatment option. If the patient doesnot want surgery, then SBRT is a good alternative. Patient decided on SBRT 08/18/2023 - Radiation Therapy Radiation Therapy Treatment Details (Noted on 07/30/2023) Site: Left Lower lobe of lung Technique: No technique specified Goal: Curative Planned Treatment Start Date: 08/18/2023 We last saw him in consultation on 24 Jul 2023, at which time Bonita and Dr. Hoffmann discussed treating this nodule in 5 fractions of radiation. Today, Mr. He is doing fair. He continues feeling generally weak after his stroke one year ago, and states that peripheral neuropathy severely limits his activity level. The patient continues participating in occupational therapy twice weekly. He notes that his right arm range of motion is limited and he can only abduct it about 90 degrees. No fevers or chest pain, no difficulty breathing or dyspnea. The patient has not had a cough and has not coughed up blood. OBJECTIVE BP 135/72 (BP Location: Right arm, Patient Position: Sitting, Cuff Size: Regular) Pulse 92 Temp36.2 ??C (Temporal) Wt 107 kg PHYSICAL EXAMINATION ECOG score: 1 - Restricted in physically strenuous activity but ambulatory and able to carry out work of a light or sedentary nature General: Well appearing, sitting comfortably in clinic in no acute distress Heart: Regular rhythm, borderline tachycardia which slows the longer I listen. Lungs: Normal work of breathing on room air. Breath sounds are decreased on the right side. No wheezing, rales, rhonchi. Musculoskeletal: Right arm abduction is limited to about 90 degrees. Psychiatric: Euthymic mood and appropriate affect. Most recent imagin02 June 2023: CT Chest: Impression: Increased size of suspicious spiculated nodule left lower lobe adjacent to the bronchovascular bundle measuring 14 millimeters. Bronchoscopic biopsy recommended. 14 Jul 2023: PET/CT: 1. FDG avid left lower lobe pulmonary nodule compatible with biopsy-proven malignancy. This is mildly increased in size from 02/19/2023. 2. No evidence of FDG avid metastatic disease. ASSESSMENT / PLAN #LLL squamous cell carcinoma Stage cT1b N0, Stage IA2 Mr. He is doing well, experiencing chronic weakness and peripheral neuropathy. We reviewed the procedural aspects of radiation planning and delivery. We will perform a 4DCT scan today to assess tumor motion and may use a breath hold technique for treatment. He has an IV as contrast will be helpful to delineate tumor from nearby vessels. We reviewed the acute toxicities of radiation, including fatigue, a small chance of cough or difficulty breathing, and a small chance of skin reaction or hair loss over part of the chest. Chronic or late-appearing toxicities could include rib fracture due to weakened ribs, chest wall pain, radiation pneumonitis, and an approximately 02/999 chance of secondary malignancy. Mr. He is ready to get started with treatment planning today. He will meet the rest of our team as he goes through treatments and weekly management visits. Patient seen for the service of Dr. Kev Hoffmann PLAN - Simulation scan today - Plan for 5000 cGy in 5 fractions beginning this August 14 - Plan to treat the following two weeks Signed by: Cara Solis MD Resident Physician Department of Radiation Oncology Please don't hesitate to contact me with questions or discussion! Text Pager: [phone] Associated attestation - Kev Hoffmann M.D. - 08/12/2023 6:02 PM CDT I saw and evaluated the patient and participated in the rosenberg portions of the service. I reviewed thedocumentation of Cara Solis M.D. and agree with the findings and plan. The patient returns for CT simulation for stereotactic body radiation therapy of the left lower lobe lung tumor. The patient appears well on exam. He is here today with his Gracia. ASSESSMENT / PLAN #1 Stage IA2 (cT1b, cN0, cM0) squamous cell carcinoma of the left lower lung #2 Nicotine dependence with interest in cessation I again had a detailed discussion with the patient and his regarding the risks, benefits, and alternatives of radiotherapy in this setting. I recommend stereotactic body radiation therapy eithera dose of 50 Gy in 5 fractions or 54 Gy in 3 fractions based on proximity to the bronchial tree. Dr. Solis reviewed the acute and chronic side effects of treatment. The patient's questions and those of his spouse were answered to their verbalized satisfaction. He stated that he would like to proceed with treatment signed the consent form. He will undergo CT simulation today with IV contrast. I encouraged him to drink lots of fluids to clear the contrast. He agreed to do so. We will endeavor to begin treatment on Tuesday, August 15, 2023. The patient verbalized satisfaction with this plan. I have spent 20 minutes caring for this patient including [id number] and tsd-[id number]-gu-face time. Signed by: Kev Hofmfann M.D. 08/12/23 6:02 PM CDT [facility] [place] documented in this encounter Miscellaneous Notes * Addendum Note - Thomas Portillo - 08/11/2023 9:00 AM CDTEncounter addended by: Thomas Portillo on: 08/13/2023 7:44 AM Actions taken: Letter saved documented in this encounter Plan of Treatment Upcoming Encounters Date Type Department Care Team (Late st Contact Info) Description 11/19/2023 3:30 PM CDT Appointment Department of Radiation Oncology in [place], [place] [address] [place] [address] Kev Hoffmann M.D. 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
--- OUTSIDE RECORDS SUMMARY | 2023-11-19 11:59 | XMS_ITS ---
Author Organization [facility] Address [address] [place] [address] Care Team Providers Care Weapons Specialist Name Role Phone Unavailable Unavailable Unavailable Surgery Details Not on file Complications Check Surgery Details section. Procedure Estimated Blood Loss Check Surgery Details section. Procedure Findings Check Surgery Details section. Procedure Specimens Taken Check Surgery Details section.
--- OUTSIDE RECORDS SUMMARY | 2023-11-19 11:59 | XMS_ITS | Encounter Summary ---
Author Organization [facility] Address [address] [place] [address] Care Team Providers Care Cloth Layer Name Role Phone Unavailable Primary Care Provider Unavailabl e Encounter Details Date Type Department Care Team (Late st Contact Info) Description 07/31/2023 Orders Only Department of Radiation Oncology in [place], [place] [address] [place] [phone] Bonita Glover APRN, C.N.P., D.N.P. 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) Social History Tobacco Use Types Packs/Day Years Used Date Smoking Tobacco: Every Day Cigarettes 0.8 50.7 Started: 1975 Smokeless Tobacco: Never Alcohol Use Standard Drinks/Week Comments Yes 0 (1 standard drink = 0.6 oz pur e alcohol) 2 drinks/month [facility] Utilities Answer Date Recorded In the past 12 months has e [employer], gas, oil, or water [employer] threatened to shut off services in your [...] Date Recorded Dental: Regular Dentist Yes 07/28/19 24 Employment Answer Date Recorded Employment status Retired 07/28/2023 Housing Stability Answer Date Recorded What is your living situation today? I have a [facility] place to live 07/28/2023 Sex and Gender Information Value Date Recorded Sex Assigned at Male 07/28/2023 10:23 AM CDT Gender Identity Male 07/28/2023 10:23 AM CDT Sexual Orientation Not on file documented as of this encounter Plan of Treatment Upcoming Encounters Date Type Department Care Team (Late st Contact Info) Description 11/19/2023 3:30 PM CDT Appointment Department of Radiation Oncology in [place], [place] [address] [place] [address] Kev Hoffmann M.D. [address] [place] [address] documented as of this encounter Visit Diagnoses Diagnosis Malignant Neoplasm Of Lung Lower Lobe Or Bronchus Left (HCC)- Primary Malignant Neoplasm Of Lung Lower Lobe Or Bronchus Left (HCC)- Primary documented in this encounter
--- OUTSIDE RECORDS SUMMARY | 2023-11-19 11:59 | XMS_ITS | Encounter Summary ---
Author Organization [facility] Address [address] [place] [address] Care Team Providers Care Front End Assistant Name Role Phone Unavailable Primary Care Provider Unavailabl e Encounter Details Date Type Department Care Team (Latest Contact Info) Description 08/19/2023 10:58 AM CDT Hospital Encounter Department of Radiation Oncology in [place], [place] [address] [place] [address] Kev Hoffmann M.D. [address] [place] [address] Discharge Disposition: Home or Self Care Social History Tobacco Use Types Packs/Day Years Used Date Smoking Tobacco: Every Day Cigarettes 0.8 50.7 Started: 1975 Smokeless Tobacco: Never Alcohol Use Standard Drinks/Week Comments Yes 0 (1 standard drink = 0.6 oz pur e alcohol) 2 drinks/month [facility] Utilities Answer Date Recorded In the past 12 months has [employer], gas, oil, or water [employer] threatened to shut off services in your [...] your living situation today? I have a [facility] place to live 07/28/2023 Sex and Gender [...] CDT Appointment Department of Radiation Oncology in [place], [place] [address] [place] [phone] Kev Hoffmann M.D. [address] [place] [address] documented as of this encounter Visit Diagnoses Not on filedocumented in this encounter
--- OUTSIDE RECORDS SUMMARY | 2023-11-19 11:59 | XMS_ITS | Clinical Summary ---
Author Organization [facility] Address [address] [place] [address] Phone Care Team Providers Care Jet Mechanic Name Role Phone Dorinda Washington DO Primary Care Provider [phone] Encounters Date Type Department Care Team Description 09/22/2023 Documentation Only [facility] [place] [address] [place] [address] No, Pcp from Last 3 Months Family History Medical History Relation Comments Hypertension Father 2 Stroke Mother 2 Cancer Sibling Diabetes Sibling Relation Status Comments Father 1 Father 2 Mother 1 Mother 2 Sibling Social History Tobacco Use Types Packs/Day Years Used Date Smoking Tobacco: Every Day Cigarettes Alcohol Use Standard Drinks/Week Comments Yes 0 (1 standard drink = 0.6 oz pure alcohol) Alcoholic Drinks/day: Occasional social drink Sex and Gender Information Value Date Recorded Sex Assigned at Not on file Gender Identity Not on file Sexual Orientation Not on file Last Filed Vital Signs Vital Sign Reading Time Taken Comments Blood Pressure 132/90 09/03/2018 11:00 AM CDT Pulse 79 09/03/2018 11:00 AM CDT Temperature - - Respiratory Rate - - Oxygen Saturation - - Inhaled Oxygen Concentration - - Weight 109 kg (240 lb 12.8 oz) 09/03/2018 11:00 AM CDT Height 195.6 cm (6' 5) 09/03/2018 11:00 AM CDT Body Mass Index 28.55 09/03/2018 11:00 AM CDT Plan of Treatment Upcoming Encounters Date Type Department Care Team (Late st Contact Info) Description 12/09/2023 1:30 PM EDT Office Visit [facility] [place] [address] [place] [address] Feliciano Soria MD [address] [place] [phone] Health Maintenance Due Date Last Done Comments Colorectal Cancer Screening: Annual FOBT 2002 Colorectal Cancer Screening: Colonoscopy 2002 Colorectal Cancer Screening: Sigmoidoscopy 2002 Diabetes: Ophthalmology Exam 05/16/2019 Diabetes: Pedal Pulse Checked 05/16/2019 Diabetes: Sensory Foot Exam 05/16/2019 Diabetes: Visual Foot Exam 05/16/2019 Pneumococcal Vaccine: 65+ Years (2 of 2 - PCV) 03/07/2022 03/07/2021 Influenza Vaccine (#1) 2023 01/15/2023 Diabetes: Hemoglobin A1C 12/11/2023 024, 07/03/2018 Hepatitis B Vaccine Aged Out 08/09/1991 No longe r eligible based on patient's age to complete this topic Procedures Procedure Name Priority Date/Time Associated Diagnosis Comments HEMOGLOBIN A1C Routine 07/03/2018 9:46 AM CDT from Last 3 Months or Most Recently Relevant to Health Maintenance Results * (ABNORMAL) Hemoglobin A1c (07/03/2018 9:46 AM CDT) Glycosylated Hemoglobin a1C 6.9(H) <5.7 % [facility] Estimated Average Glucose 151(H) <117 mg/dL [facility] 07/03/2018 9:46 AM CDT Magdaleno Ernst MD LAB BLOOD ORDERABLES [facility] from Last 3 Months or Most Recently Relevant to Health Maintenance Care Teams Jet Mechanic Relationship Specialty Start Date End Date Dorinda Washington [place] [address] PCP - General Family Medicine 09/22/23
--- OUTSIDE RECORDS SUMMARY | 2023-11-19 11:59 | XMS_ITS | Clinical Summary ---
Author Organization [facility] Address [address] [place] [address] Care Team Providers Care Memorandum Statement Clerk Name Role Phone Unavailable Primary Care Provider Unavailabl e Source Comments Patient records contain information from all sites at [facility]. For routine questions regarding patient records, call [phone] during business hours, M-F 8:00 AM - 5:00 PM Central Time. Record requests for emergency care only can be directed to [phone] at any time.[facility] Allergies No known active allergies Medications Medication Sig Dispensed Refills Start Date End Date Status amitriptyline (ELAVIL) 10 mg tablet Take 10 mg by mouth. 06/03/2023 Acti ve amLODIPine (NORVASC) 10 mg tablet Take 1 tablet by mouth daily. 06/19/2022 Active aspirin 81 mg chewable tablet Chew 81 mg. 08/14/2022 Active blood sugar diagnostic strips (OneTouch Verio test [...] from 07/04/2023:Stage IA2(cT1b, cN0, cM0) - Unsigned Encounters Date Type Department Care Team Description 08/20/2023 10:31 AM CDT - 08/20/2023 11:59 PM CDT Hospital Encounter Department of Radiation Oncology in [address] [address] Kev Hoffmann M.D. Discharge Disposition: Home or Self Care 08/20/2023 Documentation Department of Radiation Oncology in [address] [address] Kev Hoffmann M.D. 08/20/2023 Clinical Communication Department of Radiation Oncology in [address] [address] Kev Hoffmann M.D. 08/19/2023 10:59 AM CDT - 09/02/2023 7:04 PM CDT Hospital Encounter Department of Radiation Oncology in [address] [address] Kev Hoffmann M.D. Malignant Neoplasm Of Lung Lower Lobe Or Bronchus Left (HCC) 08/19/2023 10:58 AM CDT Hospital Encounter Department of Radiation Oncology in [address] [address] Kev oHffmann M.D. Discharge Disposition: Home or Self Care from Last 3 Months Family History Medical History Relation Name Comments Esophageal cancer Sister 1 Esophageal cancer Sister 2 Relation Name Status Comments Sister 1 Sister 2 Social History Tobacco Use Types Packs/Day Years Used Date Smoking Tobacco: Every Day Cigarettes 0.8 50.7 Started: 1973 Smokeless Tobacco: Never Alcohol Use Standard Drinks/Week Comments Yes 0 (1 standard drink = 0.6 oz pur e alcohol) 2 drinks/month [facility] Utilities Answer Date Recorded In the past 12 months has th e [employer], gas, oil, or water [id number] threatened to shut off services in your [...] your living situation today? I have a [facility] place to live 07/28/2023 Sex and [...] T Respiratory Rate 20 04/14/2011 6:10 PM CUTTER MACHINE Oxygen Saturation - - Inhaled Oxygen Concentration - - Weight 107 kg (235 lb 14.3 oz) 08/11/2023 10:13 AM CDT Height - - Body Mass Index - - Plan of Treatment Upcoming Encounters Date Type Department Care Team (Late st Contact Info) Description 11/19/2023 3:30 PM CDT Appointment Department of Radiation Oncology in [place], [place] [address] [place] [address] Kev Hoffmann M.D. [address] [place] [address] Health Maintenance Due Date Last Done Comments CT Colonography 1953 Cologuard 1953 Colonoscopy 1953 Colorectal Cancer Screening 1953 FIT 1953 Tobacco Cessation counseling 1953 RSV vaccine - (32-36 weeks) or 60+ years (1 - Risk 60-74 years 1-dose series) 2013 Pneumococcal vaccine (65+ years) (2 of 2 - PCV) 03/07/2022 03/07/2021 Depression Screening (Annual PHQ-2) 02/24/2023 Fall Risk Screen (Annual) 02/24/2023 COVID-19 Vaccine ( - season) 2023 09/04/2022, 05/26/2020, 04/27/2020 Influenza Vaccine (#1) 2023 01/15/2023 Sodium Level 06/25/2024 06/26/2023, 01/25, 11/05/2022, Additional history exists Creatinine Level (Kidney Function Test) 10/22/2024 10/23/2023, 06/26/2023, 02/18/2023, Additional history exists Potassium Level 11/05/2024 11/06/2023, 08/10/2023, 06/26/2023, Additional history exists Fasting Glucose for Diabetes Screening 06/25/2026 06/26/2023, 02/18/2023, 11/05/2022, Additional history exists DTaP,Tdap,and Td Vaccines (3 - Td or Tdap) 02/04/2033 02/04/2023, 01/10/1971 Hepatitis C Screening Completed 08/14/2011 Abdominal Aortic Aneurysm (AAA) Screen Completed 09/15/2022, 12/11/2020, 07/27/2006, Additional history exists Zoster Vaccines Completed 01/17/2023, 11/08/2022 HPV Vaccines Aged Out No longer eligi ble based on patient's age to complete this [...] Provider Not In System IMG CT PROCEDURES Performing Organization Address [facility] [place]/State/ZIP Co de Phone Number IINV NA * Aria Course Complete Treatment Information (08/20/2023 10:53 AM CDT) Course ID [id number] BRUNO ARIA Course Start Date 4 09:29 CDT BRUNO ARIA Course End Date 4 14:29 CDT BRUNO ARIA First Treatment Date 4 15:41 CDT BRUNO ARIA Last Treatment Date 4 10:53 CDT BRUNO ARIA Treatment Elapsed Days 6 BRUNO ARIA Reference Point [id number] BRUNO ARIA Dosage Given to Date cGy 5000 BRUNO ARIA Plan ID [id number] BRUNO ARIA Fractions Treated to Date 5 BRUNO ARIA Planned Total Fractions 5 BRUNO ARIA Prescribed Dose Per Fraction 1000 BRUNO ARIA Prescription Dose in cGy 5000 BRUNO ARIA Plan Primary Reference Point [id number] BRUNO ARIA 08/20/2023 10:5 3 AM CDT Provider Not In System RADIATION ONCOLOG Y ORDERABLES BRUNO BERNARDAA na * Aria Daily Treatment Information (08/20/2023 10:53 AM CDT) Only the most recent of2 resultswithin the time period is included. Course ID [id number] BRUNO ARIA Course Start Date 4 09:29 CDT BRUNO ARIA First Treatment Date 4 15:41 CDT BRUNO ARIA Last Treatment Date 4 10:53 CDT BRUNO ARIA Treatment Elapsed Days 6 BRUNO ARIA Reference Point [id number] BRUNO ARIA Dosage Given to Date cGy 5000 BRUNO ARIA Session Dosage Given 1000 BRUNO ARIA Plan ID [id number] BRUNO ARIA Fractions Treated to Date 5 BRUNO ARIA Planned Total Fractions 5 BRUNO ARIA Prescribed Dose Per Fraction 1000 BRUNO ARIA Prescription Dose in cGy 5000 BRUNO ARIA Plan Primary Reference Point [id number] BRUNO ARIA 08/20/2023 10:5 3 AM CDT Provider Not In System RADIATION ONCOLOG Y ORDERABLES HOWARD ARIFarida na * HXZZORDERS (08/14/2011 2:46 PM CDT) HXHep C Ab-[place] Negative Negative POWERCHART Comment: Zrfaot-rg-xyfjlq ratio is <1.00. Test Performed by: [place] [address] Chain Forming Machine Operator: Octavio Harris III, M.D. Blood 08/14/2011 2:46 PM CDT Maria E Gutierres P.A.-C. LAB HISTORICAL O RDERS POWERCHART * CT Abdomen without IV Contrast (07/27/2006 4:40 AM CDT) Anatomical Region Laterality Modality Abdomen N/A Computed Tomogra phy 07/27/2006 4:40 AM CDT Narrative 07/27/2006 4:40 AM CDT Originally Signed By Contributor_system [email or web address] INDICATION: ??Right abdominal back pain. CT OF [...] [place] - 07/31/2016 Originally Signed By Contributor_system [email or web address] INDICATION: Right abdominal back pain. CT OF THE ABDOMEN AND PELVIS - 07/27/06: Noncontrast CT of the abdomen and pelvis is negative for renal or ureteral stones. A normal appendix is identified. There are aortoiliac vascular calcifications. Examination is otherwise unremarkable. REPORT SIGNATURE ON FILE 07/30/2006 Reported By: Neymar Graham M.D. Signed By: Neymar Graham MD Transcribed: 07/28/2006 ([id number]) [email or web address] CC: Marko Foster MD Historical Provider IMG CT PROCEDURES from Last 3 Months or Most Recently Relevant to Health Maintenance
--- OUTSIDE RECORDS SUMMARY | 2023-11-19 11:59 | XMS_ITS | Encounter Summary ---
Author Organization [facility] Address [address] [place] [address] Care Team Providers Care School Traffic Supervisor Name Role Phone Unavailable Primary Care Provider Unavailabl e Reason for Visit * Radiation Therapy (Routine) - Closed Specialty Diagnoses / Procedures Referred By Laila t Referred To Contact Diagnoses Malignant Neoplasm Of Lung Lower Lobe Or Bronchus Left (HCC) Procedures Initial Rad Onc Treatment Planning CT Simulation Kev Hoffmann M.D. [address] [place] [address] [facility] Region Referral ID Status Reason Start Date Expiration Date Visits Re quested Visits Authorized [id number] Closed 07/30/2023 07/29/2024 1 1 Encounter Details Date Type Department Care Team (Latest Contact Info) Description 08/11/2023 9:03 AM CDT - 08/11/2023 9:59 AM CDT Hospital Encounter Department of Radiation Oncology in [place], [place] [address] [place] [phone] Kev Hoffmann M.D. [address] [place] [phone] Fidelina Avilez R.N. [address] [place] [phone] Discharge Disposition: Home or Self Care Social History Tobacco Use Types Packs/Day Years Used Date Smoking Tobacco: Every Day Cigarettes 0.8 50.7 Started: 1975 Smokeless Tobacco: Never Alcohol Use Standard Drinks/Week Comments Yes 0 (1 standard drink = 0.6 oz pur e alcohol) 2 drinks/month [facility] Utilities Answer Date Recorded In the past [...] your living situation today? I have a [facility] place to live 07/28/2023 Sex and Gender Information Value Date Recorded Sex Assigned at Male 07/28/2023 10:23 AM CDT Gender Identity Male 07/28/2023 10:23 AM CDT Sexual Orientation Not on file documented as of this encounter Last Filed Vital Signs Vital Sign Reading Time Taken Comments Blood Pressure - - Pulse - - Temperature - - Respiratory Rate - - [...] tablet Take 20 mg by mouth. 06/26/2022 HYDROcodone-acetamino phen (NORCO) 5-325 mg per tablet Take one [...] tablet Take 1 tablet by mouth daily. glipiZIDE (GLUCOTROL XL) 10 mg 24 hr tablet Take 10 mg by mouth daily. 08/20/2022 08/12/2023 glipiZIDE (GLUCOTROL) 10 mg tablet Take 10 mg by mouth. 024 documented as of this encounter Plan of Treatment Upcoming Encounters Date Type Department Care Team (Late st Contact Info) Description 11/19/2023 3:30 PM CDT Appointment Department of Radiation Oncology in [place], [place] [address] [place] [address] Kev Hoffmann M.D. [address] [place] [address] documented as of this encounter Visit Diagnoses Not on filedocumented in this encounter Administered Medications Inactive Administered Medications - up to 3 most recent administrations Medication Order MAR Action Action Date Dose Rate Site iohexoL 300 mg iodine/mL solution 80 mL (OMNIPAQUE) 80 mL, intravenous, Once in imaging, contrast, Starting on Fri08/12/23 at 1857, For 1 dose Given 08/11/2023 10:45 AM CDT 80 mL sodium chloride 0.9 % injection 3 mL 3 mL, intravenous, As needed, line care, Peripheral Intravenous Catheter and Rapid Infusion Catheter, Starting on Fri08/11/23 at 1013, Prior to and following infusion and between multiple consecutive infusions. Given 08/11/2023 11:00 AM CDT 3 mL Given 08/11/2023 10:40 AM CDT 3 mL documented in this encounter
--- OUTSIDE RECORDS SUMMARY | 2023-11-19 11:59 | XMS_ITS | Encounter Summary ---
Author Organization [facility] Address [address] [place] [address] Care Team Providers Care Groundwater Consultant Name Role Phone Dorinda Washington DO Primary Care Provider [phone] Encounter Details Date Type Department Care Team (Late st Contact Info) Description 03/01/2019 Orders Only [facility] [address] [place] [address] Deborah Peres RN Chronic kidney disease, Stage III (moderate) ([facility]) Social History Tobacco Use Types Packs/Day Years [...] EDT Office Visit [facility] [address] [place] [address] Feliciano Soria MD [address] [place] [address] documented as of this encounter Visit Diagnoses Diagnosis Chronic kidney disease, Stage III (moderate) documented in this encounter Care Teams Groundwater Consultant Relationship Specialty Start Date End Date Dorinda Washington DO [address] [place] [address] PCP - General Family Medicine 09/22/23 documented as of this encounter
--- OUTSIDE RECORDS SUMMARY | 2023-11-19 11:59 | XMS_ITS | Encounter Summary ---
Author Organization [facility] Address [address] [place] [address] Care Team Providers Care Content Engineer Name Role Phone Unavailable Primary Care Provider Unavailabl e Reason for Referral * Outpatient (Routine) - Authorized Specialty Diagnoses / Procedures Referred By Laila t Referred To Contact Radiation Oncology Kev Hoffmann M.D. [address] [place] [address] [facility] Region Referral ID Status Reason Start Date Expiration Date V isits Requested Visits Authorized [id number] Authorized 09/02/2023 03/03/2025 1 1 Scheduling Instructions JLL in 3 months; after CT * MRI/CAT/PET Scan (Routine) - Authorized Specialty Diagnoses / Procedures Referred By Contac t Referred To Contact Radiology Diagnoses Malignant Neoplasm Of Lung Lower Lobe Or Bronchus Left (HCC) Procedures CT Chest with IV Contrast Kev Hoffmann M.D. [address] [place] [address] [facility] Region Referral ID Status Reason Start Date Expiration Date V isits Requested Visits Authorized [id number] Authorized 09/02/2023 09/01/2024 1 1 * Radiation Therapy (Routine) - Authorized Specialty Diagnoses / Procedures Referred By Contac t Referred To Contact Diagnoses Malignant Neoplasm Of Lung Lower Lobe Or Bronchus Left (HCC) Procedures Management Visit Kev Hoffmann M.D. [address] [place] [address] [facility] Region Referral ID Status Reason Start Date Expiration Date V isits Requested Visits Authorized [id number] Authorized 07/30/2023 07/29/2024 10 10 Reason for Visit * Radiation Therapy (Routine) - Authorized Specialty Diagnoses / Procedures Referred By Contac t Referred To Contact Diagnoses Malignant Neoplasm Of Lung Lower Lobe Or Bronchus Left (HCC) Procedures Management Visit Kev Hoffmann M.D. [address] [place] [address] [facility] Region Referral ID Status Reason Start Date Expiration Date V isits Requested Visits Authorized [id number] Authorized 07/30/2023 07/29/2024 10 10 Encounter Details Date Type Department Care Team (Latest Contact Info) Description 08/19/2023 10:59 AM CDT - 09/02/2023 7:04 PM CDT Hospital Encounter Department of Radiation Oncology in [place], [place] [address] [place] [address] Kev Hoffmann M.D. [address] [place] [address] Malignant Neoplasm Of Lung Lower Lobe Or Bronchus Left (HCC) Social History Tobacco Use Types Packs/Day Years Used Date Smoking Tobacco: Every Day Cigarettes 0.8 50.7 Started: 1975 Smokeless Tobacco: Never Alcohol Use Standard Drinks/Week Comments Yes 0 (1 standard drink = 0.6 oz pur e alcohol) 2 drinks/month [facility] Utilities Answer Date Recorded In the past 12 months has [employer], gas, oil, or water [employer] threatened to shut off services in your [...] your living situation today? I have a [facility] place to live 07/28/2023 Sex and Gender Information Value Date Recorded Sex Assigned at Male 07/28/2023 10:23 AM CDT Gender Identity Male 07/28/2023 10:23 AM CDT Sexual Orientation Not on file documented as of this encounter Last Filed Vital Signs Vital Sign Reading Time Taken Comments Blood Pressure 137/81 08/19/2023 11:34 AM CDT Pulse - - Temperature - - Respiratory Rate - - Oxygen Saturation - - Inhaled Oxygen Concentration - - Weight - - Height - - Body Mass Index - - documented in this encounter Medications at Time of Discharge Medication Sig Dispensed Refills Start Date End Date amitriptyline (ELAVIL) 10 mg tablet Take 10 mg by mouth. 06/03/2023 amLODIPine (NORVASC) 10 mg tablet Take 1 tablet by mouth daily. 06/19/2022 aspirin 81 mg chewable tablet Chew 81 mg. 08/14/2022 blood sugar diagnostic strips ([employer] Verio test strips) Dispense item covered by [...] as of this encounter Progress Notes * Kev Hoffmann M.D. - 08/19/2023 12:00 PM CDT SUBJECTIVE REASON FOR VISIT Evaluation for side effects while receiving radiation treatment for 1. Malignant Neoplasm Of Lung Lower Lobe Or Bronchus Left (HCC) SUPERVISED BY: Kev Hoffmann M.D. ([phone]) HISTORY OF PRESENT ILLNESS Chato He is a 68 y.o. 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 Patient is receiving SBRT to left lower lung. Treatment Course: 1xLungLowrSBRT Plan ID Fractions Dose / Fraction (cGy) Dose Treated (cGy) Dose Planned (cGy) First Treatment Last Treatment Elapsed Days [id number] 1000 4000 5000 08/14/2023 08/19/2023 5 Course Summary 08/14/2023 08/19/2023 5 The patient was seen and examined today with Dr. Hoffmann. The patient reports that he is doing well. He denies cough, shortness of breath, esophagitis, dysphagia, fevers or chills. PATIENT REPORTED SYMPTOM SCREEN FATIGUE (Scale: 0 = no fatigue; 10 = worst fatigue you can imagine): PAIN (Scale: 0 = no pain; 10 = worst pain you can imagine): 0 OVERALL QUALITY OF LIFE (Scale: 0 = as bad as can be; 10 = as good as can be): OBJECTIVE BP 137/81 (BP Location: Right arm, Patient Position: Sitting, Cuff Size: Regular) PHYSICAL EXAM General: Alert and oriented in no apparent distress. 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 Dr. Silva is scheduled to see patient onSeptember 18, 2023. We will order chest CT with IV contrast and creatine check to be completed in 3 months. We will schedule CT at [facility]. Dr. Hoffmann will follow up with patient soon after CT has been completed. He will contact us with any questions or concerns. We will continue with radiation treatment as planned. Toxicities reviewed with Dr. Hoffmann today. Signed by: Fidelina Avilez R.N. 08/19/2023 1:14 PM CDT I saw and evaluated the patient and participated in the rosenberg portions of the service. I reviewed thedocumentation of Fidelina Avilez R.N. and agree with the findings and plan. The patient appears well on exam. He is tolerating treatment well without apparent side effect. He will finish treatment as planned tomorrow. We will see him in follow-up in [address] scan of the chest at [facility] in [place]. He can contact us in the interim with questions or concerns. He verbalized satisfaction with this plan. Signed by: Kev Hoffmann M.D. 09/02/2023 7:03 PM CDT [facility] [address] [place] [address] documented in this encounter Miscellaneous Notes * Addendum Note - Claritza Luna C.N.AKenyatta - 08/19/2023 12:00 PM CDTEncounter addended by: Claritza Luna C.N.Abe on: 09/03/2023 8:22 AM Actions taken: Letter saved documented in this encounter Plan of Treatment Upcoming Encounters Date Type Department Care Team (Late st Contact Info) Description 11/19/2023 3:30 PM CDT Appointment Department of Radiation Oncology in [place], [place] [address] [place] [address] Kev Hoffmann M.D. [address] [place] [address] Scheduled Orders Name Type Priority Associated Diagnoses Order Schedule Management Visit Radiation Oncology Routine Malignant Neoplasm Of Lung Lower Lobe Or Bronchus Left (HCC) Once for 1 Occurrences starting 08/19/2023 until 08/19/2023 CT Chest with IV Contrast Imaging RAD - Routine (most inpatients and all outpatients) Malignant Neoplasm Of Lung Lower Lobe Or Bronchus Left (HCC) Expected: 11/19/2023 (Approximate), Expires: 08/18/2024 Scheduled Referrals Name Type Priority Associated Diagnoses Orde r Schedule Radiation Oncology office visit (clinic) Outpatient Referral Routine Expected: 11/19/2023 (Approximate), Expires: 08/18/2024 documented as of this encounter Visit Diagnoses Diagnosis Malignant Neoplasm Of Lung Lower Lobe Or Bronchus Left (HCC) Malignant Neoplasm Of Lung Lower Lobe Or Bronchus Left (HCC)- Primary documented in this encounter
--- OUTSIDE RECORDS SUMMARY | 2023-11-19 12:00 | XMS_ITS | Encounter Summary ---
Author Organization [facility] Address [address], [place] [address] Care Team Providers Care Director Of Student Affairs Name Role Phone Clinician, Not Found MD Primary Care Provider Un available Reason for Visit * Reason Comments Progress Report PT Progress 09/04/23 Encounter Details Date Type Department Care Team (Late st Contact Info) Description 09/05/2023 Telephone Physiatry/Physical Medicine at [facility] [address] [facility]. [place], [place] [phone] Han Bradley MD [address] [place], [place] [phone] Progress Report (PT Progress 09/04/23) Social History Tobacco Use Types Packs/Day Years Used Date Smoking Tobacco: Every Day Cigarettes 0.8 40 Smokeless Tobacco: Never Alcohol Use Standard Drinks/Week Comments Yes 1 (1 standard drink = 0.6 oz pur e alcohol) PHQ-2 Answer Date Recorded PHQ-2 Score 0 12/25/2020 Hunger Vital Sign Answer Date Recorded Within the past 12 months, y ou worried that your food would run out before you got the money to buy more. Never true 08/15/19 23 Within the past 12 months, t he food you bought just didn't last and you didn't have money to get more. Never true 08/14/2022 Sex and Gender Information Value Date Recorded Sex Assigned at Not on file Gender Identity Not on file Sexual Orientation Not on file documented as of this encounter Nursing Notes * Roseann Sands - 09/18/2023 1:59 PM CDT Received from [place] to do bin. Faxed to [facility] at [phone]. Confirmation received. Form sent to scanning. Thanks. Roseann Sands 09/18/2023, 1:59 PM * Machelle Irene CMA - 09/18/2023 11:25 AM CDT Provider has signed the form/document or completed request below. Please fax or send as requested. Placed in [place] to do. Machelle Ascencio CMA ([facility]), 09/18/2023 11:25 AM * Melecio Rahman - 09/12/2023 10:27 AM CDT Received a fax from [facility] 2nd request for this to be completed. Fax is a duplicate, being deleted. Thanks. Melecio Rahman 09/12/2023, 10:27 AM * Johanna Zhong LPN - 09/05/2023 12:19 PM CDT Provider is working at the hospital. Will review and sign forms, if appropriate, when back in clinic. Johanna Johnson LPN 09/05/2023 12:19 PM * Melecio Rahman - 09/05/2023 9:47 AM CDT Received a fax from [facility] Progress evaluation from 09/04/23 Requesting signature. Fax is in provider right fax folder to sign. Melecio Rahman 09/05/2023, 9:47 AM documented in this encounter Plan of Treatment Not on file documented as of this encounter Visit Diagnoses Not on filedocumented in this encounter Care Teams Director Of Student Affairs Relationship Specialty Start Date End Date Clinician, Not Found, [place] [address] PCP - General 12/11/20 documented as of this encounter
--- OUTSIDE RECORDS SUMMARY | 2023-11-19 12:00 | XMS_ITS | Encounter Summary ---
Author Organization [place] Address [facility] [place] [address] Care Team Providers Care Leave Specialist Name Role Phone Yousuf Bernard MD Primary Care Provider [phone] Abrahan Bower MD Unavailable [phone] Reason for Visit * Reason Onset Date Comments Medication Question 10/03/2022 Encounter Details Date Type Department Care Team (Late st Contact Info) Description 10/03/2022 Telephone [facility] [place] [address] [place] [address] Abrahan Bower MD [address] [place] [address] Medication Question Social History Tobacco Use Types Packs/Day Years Used Date Smoking Tobacco: Every Day Cigarettes 0.5 50 Smokeless Tobacco: Never Alcohol Use Standard Drinks/Week Comments Yes 0 (1 standard drink = 0.6 oz pur e alcohol) 4 drinks per month Sex and Gender Information Value Date Recorded Sex Assigned at Not on file Gender Identity Not on file Sexual Orientation Not on file COVID-19 Exposure Response Date Recorded In the last 10 days, have yo u been in contact with someone who was confirmed or suspected to have Coronavirus/COVID-19? No / Unsure 10/04/2022 9:51 AM CDT documented as of this encounter Miscellaneous Notes * Telephone Encounter - SantosAleta - 10/03/2022 12:57 PM CDT Pt spouse Gracia states to disregard medication question. * Telephone Encounter - Katarina Leon - 10/03/2022 12:47 PM CDT [facility] Phone Message May a detailed message be left on voicemail: yes Reason for Call: Medication Question or concern regarding medication Prescription Clarification Name of Medication: glipiZIDE (GLUCOTROL XL) 10 MG 24 hr tablet Prescribing Provider: Arline Garcia MD - URGENT CARE What on the order needs clarification? Pt is wondering what the dosage and frequency of medication Please call to discuss. Thank you Action Taken: Message routed to: Other: [employer]ro Travel Screening: Not Applicable documented in this encounter Plan of Treatment Not on file documented as of this encounter Visit Diagnoses Not on filedocumented in this encounter Care Teams Leave Specialist Relationship Specialty Start Date End Date Yousuf Bernard MD [facility] [address] [facility] [address] [place], [place] [address] PCP - General Family Medicine 06/16/22 Abrahan Bower MD [address] [facility] [address] [place] [address] Assigned Surgical Provider 10/12/22 documented as of this encounter
--- OUTSIDE RECORDS SUMMARY | 2023-11-19 12:00 | XMS_ITS | Encounter Summary ---
Author Organization [facility] Address [address], [place] [address] Care Team Providers Care Ed Educational Aide Name Role Phone Clinician, Not Found MD Primary Care Provider Un available Encounter Details Date Type Department Care Team (Late st Contact Info) Description 11/04/2023 Telephone Physiatry/Physical Medicine at [facility] [address] [facility]. [place], [place] [phone] Han Bradley MD [address] [place], [place] [phone] Social History Tobacco Use Types Packs/Day Years [...] as of this encounter Nursing Notes * Sonu Vega - 11/04/2023 1:46 PM CDT Please call pt back to sched in May 2024. Please call pt back to sched when rotation sched is set. Sonu Vega 11/04/2023, 1:47 PM documented in this encounter Plan of Treatment Not on file documented as of this encounter Visit Diagnoses Not on filedocumented in this encounter Care Teams Ed Educational Aide Relationship Specialty Start Date End Date Clinician, Not Found, [place] [address] PCP - General 12/11/20 documented as of this encounter
--- OUTSIDE RECORDS SUMMARY | 2023-11-19 12:00 | XMS_ITS | Encounter Summary ---
Author Organization [facility] Address [address], [place] [address] Care Team Providers Care Foam Rubber Molder Name Role Phone Clinician, Not Found MD Primary Care Provider Un available Reason for Referral * Therapies (Routine) - New Request Specialty Diagnoses / Procedures Referred By Keenanac brittany Referred To Contact Diagnoses Cerebrovascular accident (CVA), unspecified mechanism (HRC) Right hemiparesis (HRC) Han Bradley MD [address] [place] [id number] Referral ID Status Reason Start Date Expiration Date V isits Requested Visits Authorized [id number] New Request 11/04/2023 11/03/2024 1 1 Scheduling Instructions This order is your clinician's recommendation for a service and is not an insurance referral which authorizes payment. The recommended service and/or location may not be covered by your insurance plan. Please call the number on your insurance card to find out your specific benefits and coverage for the recommended services and/or location. If you need help scheduling the recommended services, please ask your clinician's staff to assist you. Question Answer Appointment Urgency? 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 Please assess and treat. dexamethasone use Yes May check glucose per protocol (see policy link below) or if patient has symptoms? Yes Comments * Therapies (Routine) - New Request Specialty Diagnoses / Procedures Referred By Laila soto Referred To Contact Diagnoses Cerebrovascular accident (CVA), unspecified mechanism (HRC) Right hemiparesis (HRC) Han Bradley MD [address] [place] [address] Referral ID Status Reason Start Date Expiration Date V isits Requested Visits Authorized [id number] New Request 11/04/2023 11/03/2024 1 1 Scheduling Instructions Your clinician has recommended an appointment with Physical Therapy and Rehabilitation Services. You can quickly make your appointment online at [employer]/schedule. You can also call [phone] for help scheduling your appointment. We suggest you call your health insurance company about your coverage and benefits for this appointment. Question Answer Appointment Urgency? Non-Urgent Requested Services Evaluate and treat May use saline for irrigation or cleansing Yes RFV/Clin Data hx of functional deficits related to CVA with right hemiparesis. Please assess and treat. work on strength dexamethasone use Yes May check glucose per protocol (see policy link below) or if patient has symptoms? Yes Reason for Visit * Reason Comments Revisit Encounter Details Date Type Department Care Team (Latest Contact Info) Description 11/04/2023 1:00 PM CDT Office Visit Physiatry/Physical Medicine at [address] [place] [address] Han Bradley MD [address] [place], [place] [phone] Cerebrovascular accident (CVA), unspecified mechanism (HRC) (Primary Dx); Right hemiparesis (HRC) Social History Tobacco Use Types Packs/Day Years [...] as of this encounter Plan of Treatment Scheduled Referrals Name Type Priority Associated Diagnoses Orde r Schedule Physical Therapy Referral Routine Cerebrovascular accident (CVA), unspecified mechanism (HRC) Right hemiparesis (HRC) Ordered: 11/04/2023 Physical Therapy Referral Routine Cerebrovascular accident (CVA), unspecified mechanism (HRC) Right hemiparesis (HRC) Ordered: 11/04/2023 documented as of this encounter Visit Diagnoses Diagnosis Cerebrovascular accident (CVA), unspecified mechanism (HRC)- Primary Right hemiparesis (HRC) Hemiplegia, unspecified, affecting unspecified side documented in this encounter Care Teams Foam Rubber Molder Relationship Specialty Start Date End Date Clinician, Not Found, [place] [address] PCP - General 12/11/20 documented as of this encounter
--- OUTSIDE RECORDS SUMMARY | 2023-11-19 12:00 | XMS_ITS | Clinical Summary ---
Author Organization [facility] Address [address], [place] [address] Care Team Providers Care Technical Inspector Name Role Phone Clinician, Not Found MD Primary Care Provider Un available Source Comments You are receiving this document as you are listed as the primary care provider,follow-up provider, or the patient has been referred to you for consultation.This is in compliance with the Medicare and[employer] Administration[employer] EHR Incentive Program,which states Providers who transition their patient to another setting of careor provider of care or refers their patient to another provider of care shouldprovide summary care record for each transition of care or referral. Chorus Allergies No known active allergies Medications Medication Sig Dispensed Refills Start Date End Date Status ONETOUCH ULTRA test strip two times a day. 1 Active amLODIPine (NORVASC) 10 MG tablet Take 1 Tablet (10 mg) by mouth daily. Active aspirin 81 MG chewable tabletIndicatio ns:Ischemic Stroke Chew and swallow 1 Tablet (81 mg) by mouth daily. Indications: Stroke Due To Limited Blood Flow 30 Tablet 1 3 Active atorvastatin (LIPITOR) 80 MG tabletIndicatio ns:Hyperlipidem ia Take 1 Tablet (80 mg) by mouth every evening. Indications: High Amount of Fats in the Blood 30 Tablet 1 3 Active acetaminophen (TYLENOL) 325 MG tabletIndicatio ns:Pain Take 2 Tablets (650 mg) by mouth every 4 hours as needed. Indications: Pain. Do not take more than 4,000 mg acetaminophen from all sources in 24 hours. 100 Tablet 1 3 Active lidocaine (XYLOCAINE) 5 % ointment Apply topically three times a day. 35.44 g 1 3 Active meclizine (BONINE) 25 MG chewable tabletIndicatio ns:Dizziness,Ve rtigo Chew and swallow 1 Tablet (25 mg) by mouth three times a day. Indications: Dizzy, Sensation of Spinning or Whirling 90 Tablet 1 3 Active Additional Information Patient not taking.Reported on 11/04/2023 glipiZIDE XL (GLUCOTROL XL) 10 MG 24 hour release tablet Take 1 Tablet (10 mg) by mouth daily. 90 Tablet 3 3 Active [place]-3 Fatty Acids (FISH OIL) 1000 MG capsule Take 1 Capsule (1,000 mg) by mouth. Active allopurinol (ZYLOPRIM) 100 MG tablet Take 0.5 Tablets (50 mg) by mouth. 3 01/07/20 24 Active amitriptyline (ELAVIL) 10 MG tablet Take 1 Tablet (10 mg) by mouth. 4 Active HYDROcodone-sarbjit taminophen (NORCO) 5-325 MG tablet Take one tablet by mouth two times a day as needed for pain. Max acetaminophen dose: 4000 mg in 24 hrs. Rx to last 30 days. use dates: 10/13/2023 - 11/11/2023 4 Active diclofenac (VOLTAREN) 1 % gel Apply 4 g topically. 4 Active OZEMPIC, 2 MG/DOSE, 8 MG/3ML SOPN injection Inject 2 mg subcutaneously once every week. 4 Active lisinopril (ZESTRIL) 20 MG tablet Take 1 Tablet (20 mg) by mouth two times a day. 4 Active metFORMIN (GLUCOPHAGE) 500 MG tablet Take 1 Tablet (500 mg) by mouth two times a day with meals. 4 Active lisinopril (ZESTRIL) 40 MG tabletIndicatio ns:Hypertension Take 1 Tablet (40 mg) by mouth daily. Indications: High Blood Pressure Disorder. Do not start before August 21, 2022. 30 Tablet 1 3 11/04/19 24 Discontinued( *Patient decision or formulary issue) ticagrelor (BRILINTA) 90 MG tabletIndicatio ns:Acute Ischemic Stroke Take 1 Tablet (90 mg) by mouth two times a day. Indications: Acute Ischemic Stroke 60 Tablet 1 3 11/04/19 24 Discontinued( *Patient decision or formulary issue) JANUVIA 25 MG tablet Take 1 Tablet (25 mg) by mouth daily. 30 Tablet 11 3 11/04/19 24 Discontinued( *Patient decision or formulary issue) metFORMIN XR (GLUCOPHAGE XR) 500 MG 24 hour release tablet Take 2 Tablets (1,000 mg) by mouth daily with food. 180 Tablet 3 3 11/04/19 24 Discontinued( *Patient decision or formulary issue) oxyCODONE (ROXICODONE) 5 MG immediate release tabletIndicatio ns:Acute Pain Take 1 Tablet (5 mg) by mouth two times daily as needed for Pain (severe R shoulder pain-wean off). Indications: Acute Pain 10 Tablet 3 11/04/19 24 Discontinued( *Patient decision or formulary issue) Active Problems Problem Noted Date Diagnosed Date Type 2 diabetes mellitus with hyperglycemia 07/26 Impaired mobility and ADLs 08/20/2022 Acute pain of right shoulder 08/20/2022 Type 2 diabetes mellitus with other neurologic c omplication 08/20/2022 Left sided cerebral hemisphe re cerebrovascular accident (CVA) 08/20/2022 Right hemiparesis 08/17/2022 Impaired gait and mobility 08/17/2022 Decreased activities of daily living (ADL) 08/17 Cerebrovascular accident (CVA) 08/14/2022 Diabetes mellitus type 2 in nonobese 12/25/2020 Essential hypertension 12/25/2020 Tobacco abuse 12/25/2020 Encounters Date Type Department Care Team Description 11/04/2023 1:00 PM CDT Office Visit Physiatry/Physical Medicine at [address] [place] [address] Han Bradley MD Cerebrovascular accident (CVA), unspecified mechanism (HRC) (Primary Dx); Right hemiparesis (HRC) 11/04/2023 Telephone Physiatry/Physical Medicine at [address] [place] [address] Han Bradley MD 10/06/2023 Telephone Physiatry/Physical Medicine at [address] [place] [address] Han Bradley MD Progress Report (OT Progress 10/01/23) 09/05/2023 Telephone Physiatry/Physical Medicine at [address] [place] [address] Han Bradley MD Progress Report (PT Progress 09/04/23) from Last 3 Months Immunizations Name Administration Dates Next Due HepB, Unspecified Formulation 08/09/1991 Moderna Monovalent 12+ 05/26/2020,04/27/2020 Td (7+ yrs) 01/10/1971 Family History Medical History Relation Name Comments Diabetes Sister 1 Cancer Sister 2 Relation Name Status Comments Sister 1 Sister 2 Social History Tobacco Use Types Packs/Day Years Used Date Smoking Tobacco: Every Day Cigarettes 0.8 40 Smokeless Tobacco: Never Tobacco Cessation:Ready to Q uit: No; Counseling Given: Yes Alcohol Use Standard Drinks/Week Comments Yes 1 [...] Sign Reading Time Taken Comments Blood Pressure 152/89 12/23/2022 10:57 AM CDT Pulse 72 12/23/2022 10:57 AM CDT Temperature 36.6 ??C (97.8 ??F) 08/21/2022 6:35 AM CD T Respiratory Rate 16 08/21/2022 6:35 AM CDT Oxygen Saturation 98% 08/21/2022 6:35 AM CDT Inhaled Oxygen Concentration - - Weight 100.8 kg (222 lb 3.2 oz) 08/19/2022 6:44 AM CDT Height 195.6 cm (6' 5) 08/14/2022 1:30 PM CDT Body Mass Index 26.35 08/14/2022 1:30 PM CDT Plan of Treatment Health Maintenance Due Date Last Done Comments Colon Cancer Screening Plan Due 1955 Diabetes: Eye Exam 1955 Diabetes: Foot Exam 1955 Diabetes: Lipid Panel 1955 Diabetes: Urine Microalbumin 1955 Hep C Screening (Preventive Services) 1955 Medicare Welcome Visit 1955 HepB (2) 09/06/1991 08/09/1991 Diabetes: Creatinine 08/22/2023 08/21/2022, 08/19/2022, 08/15/2022, Additional history exists COVID-19 Vaccine ( season) 2023 2023, 12/12/2022, 09/04/2022, Additional history exists Influenza (#1) 2023 01/15/2023 Diabetes: HGBA1C 12/11/2023 09/10/2023, , 06/11/2023, Additional history exists Lung Cancer Screening 02/12/2024 02/11/2023 RSV (1 - 1-dose 75+ series) 2028 DTaP/Tdap/Td (3 - Tdap) 02/04/2033 02/04/2023, 01/10 Pneumococcal 65+ Yrs Completed 11/08/2022, 03/07/19 22 Zoster/Shingles Completed 01/17/2023, 11/08/2022 Abdominal Aortic Aneurysm (AAA) Screening Completed 02/21/2023 HepA Aged Out No longer eligi ble based on patient's age to complete this topic Hib Aged Out No longer eligi ble based on patient's age to complete this topic IPV (Polio) Aged Out No longer eligi ble based on patient's age to complete this topic MCV4 Aged Out No longer eligi ble based on patient's age to complete this topic Procedures Procedure Name Priority Date/Time Associated Diagnosis Comments BASIC METABOLIC PANEL Routine 08/21/2022 5:51 AM CDT from Last 3 Months or Most Recently Relevant to Health Maintenance Results * (ABNORMAL) Basic Metabolic Panel (08/21/2022 5:51 AM CDT) Sodium 141 136 - 145 mmol/L 08/21/2022 6:36 AM CDT [facility] Potassium 4.5 3.5 - 5.1 mmol/L 08/21/2022 6:36 AM [facility] Chloride 112(H) 98 - 109 mmol/L 08/21/2022 6:36 AM T [facility] CO2 20 20 - 29 mmol/L 08/21/2022 6:36 AM T [facility] Anion Gap 9 7 - 16 mmol/L 08/21/2022 6:36 AM [facility] Calcium 9.0 8.4 - 10.4 mg/dL 08/21/2022 6:36 AM [facility] BUN 53(H) 7 - 26 mg/dL 08/21/2022 6:36 AM [facility] Creatinine 2.20(H) 0.73 - 1.18 mg/dL 08/21/2022 6:36 AM [facility] Glucose 102(H) 70 - 100 mg/dL 08/21/2022 6:36 AM [facility] Comment:The given reference range is for the fasting state. Non-fasting reference range for glucose is 70 - 180 mg/dL. GFR, Estimated 32(L) >60 mL/min/1.7 3m2 08/21/2022 6:36 AM [facility] Blood Venipuncture / Unknown 08/21/2022 5:51 AM CDT 08/21/2022 6:03 AM CDT Machelle Gregg MD LAB_[email or web address] [address], [facility] [phone] from Last 3 Months or Most Recently Relevant to Health Maintenance Advance Directives * Full Code (Latest Code Status on File) Date Activated Date Inactivated Comments 08/14/2022 2:54 PM 08/21/2022 12:21 PM Care Teams Technical Inspector Relationship Specialty Start Date End Date Clinician, Not Found, [place] [address] PCP - General 12/11/20
--- OUTSIDE RECORDS SUMMARY | 2023-11-19 12:00 | XMS_ITS | Clinical Summary ---
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 08/15/19 23 Active fish oil-omega-3 fatty acids 1,000-340 mg capsule Take 1 g by mouth once daily. Active amLODIPine (NORVASC) 10 mg tabletIndications:H TN (hypertension) Take 1 Tablet (10 mg) by mouth once daily. 90 Tablet 3 02/05/20 23 Active lancets (OneTouch Delica Plus Lancet) 30 gauge miscIndications:Typ e 2 diabetes mellitus with diabetic 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, 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) As directed. Dispense item covered by pt ins. E11.9 NIDDM type II - Test 3 times/day, Reason: High A1C 100 Each 5 02/12/20 Active allopurinoL (ZYLOPRIM) 100 mg tablet Take 50 mg by mouth once daily. 01/08/20 024 Active sennosides-docusate (SENOKOT S) (8.6-50 mg) tabletIndications:C hronic constipation Use one tablet daily for constipation; use up to 2 tablets twice daily as needed for worsening of constipation 180 Tablet 3 06/11/19 24 Active Additional Information Patient taking differently: 1 Tablet Oral BID, Use one tablet daily for constipation; use up to 2 tablets twice daily as needed for worsening of constipation, Reported on 10/28/2023 amitriptyline (ELAVIL) 10 mg tabletIndications:N europathic pain,Chronic neck pain Take 1 Tablet (10 mg) by mouth at bedtime. For chronic neuropathic/ chronic pain syndrome. 120 Tablet 3 09/02/19 24 Active diclofenac topical (Voltaren) 1 % gelIndications:Neur opathic pain,Chronic neck pain Apply 4 g topically to affected area(s) four times daily. 2 g 3 09/02/19 24 Active Additional Information Patient not taking.Reported on 11/17/2023 metFORMIN (GLUCOPHAGE) 500 mg tabletIndications:T ype 2 diabetes mellitus with hyperglycemia, 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) Take 1 Tablet (500 mg) by mouth two times daily with meals. 180 Tablet 3 09/10/19 24 Active semaglutide (Ozempic) 2 mg/dose (8 mg/3 mL) subcutaneous penIndications:Type 2 diabetes mellitus with diabetic 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, unspecified whether longterm insulin use (HC) Inject 2 mg subcutaneous once weekly. 3 Pen 3 09/10/19 24 Active lisinopriL (PRINIVIL; ZESTRIL) 20 mg tabletIndications:H TN (hypertension) Take 1 Tablet (20 mg) by mouth two times daily. Take 1/2 tablet (20 mg) twice daily 180 Tablet 3 10/23/19 24 Active glipiZIDE extended-release (GLUCOTROL XL) 10 mg Extended-Release tabletIndications:T ype 2 diabetes mellitus with diabetic 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, 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) Take 2 Tablets (20 mg) by mouth once daily before a meal. 180 Tablet 1 10/23/19 24 Active medication order composer Enzymedica Digestive Enzyme: 1 capsule po daily. Mitocore: 2 tablets po daily. Garden of Life Probiotic 30 billion: 1 capsule po daily. 10/28/19 24 Active HYDROcodone-acetami nophen (5-325 mg/tablet)Indicatio ns:Neuropathic pain Take one tablet by mouth two times a day as needed for pain. Max acetaminophen dose: 4000 mg in 24 hrs. Rx to last 30 days. use dates: 11/12/23-12/11/23 60 Tablet 11/10/19 24 Active naloxone (NARCAN) 4 mg/actuation nasal sprayIndications:En counter for therapeutic drug monitoring Inhale 1 Pansey into affected nostril(s) each time if needed for Patient Diff To Arouse or Resp Rate < 8 / min. Additional doses may be given every 2 to 3 minutes until emergency medical assistance arrives. 2 Each 11/10/19 24 Active atorvastatin (LIPITOR) 80 mg tabletIndications:L eft sided cerebral hemisphere cerebrovascular accident (CVA) (HC) TAKE 1 TABLET(80 MG) BY MOUTH EVERY DAY WITH THE EVENING MEAL 90 Tablet 2 11/16/19 24 Active blood sugar diagnostic (OneTouch Verio test strips) stripIndications:Ty pe 2 diabetes mellitus with diabetic 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, 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) Dispense item covered by pt ins. E11.9 NIDDM type II - Test 3 times/day, Reason: High A1C 300 Each 3 11/17/19 24 Active lidocaine, anorectal, 5% topical 5 % creamIndications:Ch ronic pain of both shoulders Apply topically to affected area(s) 2 times daily if needed (bilateral shoulder pain). 15 g 11/17/19 24 Active atorvastatin (LIPITOR) 80 mg tabletIndications:L eft sided cerebral hemisphere cerebrovascular accident (CVA) (HC) Take 1 Tablet (80 mg) by mouth once daily with evening meal. 90 Tablet 3 02/05/20 23 024 Discontinued blood sugar diagnostic (OneTouch Verio test strips) stripIndications:Ty pe 2 diabetes mellitus with diabetic 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, 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) Dispense item covered by pt ins. E11.9 NIDDM type II - Test 3 times/day, Reason: High A1C 100 Each 5 02/12/20 024 Discontinued(Re order (E-cancel not sent)) glipiZIDE extended-release (GLUCOTROL XL) 10 mg Extended-Release tabletIndications:T ype 2 diabetes mellitus with diabetic 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, 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) Take 2 Tablets (20 mg) by mouth once daily before a meal. 180 Tablet 1 06/02/19 24 024 Discontinued(Re order (E-cancel not sent)) lisinopriL (PRINIVIL; ZESTRIL) 40 mg tabletIndications:H TN (hypertension) Take 1/2 tablet (20 mg) twice daily 90 Tablet 1 06/02/19 24 024 Discontinued(Re order (E-cancel not sent)) HYDROcodone-acetami nophen (5-325 mg/tablet)Indicatio ns:Neuropathic pain Take one tablet by mouth two times a day as needed for pain. Max acetaminophen dose: 4000 mg in 24 hrs. Rx to last 30 days. use dates: 10/13/2023 - 11/11/2023 60 Tablet 10/13/19 024 Discontinued(Re order (E-cancel not sent)) Hospital, Clinic, or Other Facility Administered Medication Ordered Dose Route Frequency Start Date End Date Status onabotulinumtoxinA (BOTOX) injection 100 unitIndications:Spasticity as late effect of cerebrovascular accident (CVA) 100 unit IM ONE TIME 11/17/2023 11/17/2023 Ended Active Problems Problem Noted Date Diagnosed Date Malignant neoplasm of lower lobe of left lung Squamous cell carcinoma of left lung 08/18/2023 Pulmonary nodule, left 07/04/2023 Abdominal aneurysm 02/25/2023 Overview (02/25/2023): 3.7 cm in size of proximal aorta; repeat monitoring in 01/2025 Personal history of nicotine dependence 02/05/20 Neuropathic pain 01/31/2023 Chronic neck pain 01/31/2023 Epiretinal membrane (ERM) of left eye 12/20/2022 Controlled substance agreement signed 12/17/2022 Depression, recurrent 11/05/2022 Stage 3b chronic kidney disease 10/03/2022 Chronic neuropathic pain 10/03/2022 Tobacco use disorder 10/03/2022 Left sided cerebral hemisphe re cerebrovascular accident (CVA) 09/04/2022 Diabetes mellitus type II 03/04/2012 Overview (05/11/2013): Diagnosed 01/2012 a system change updated this record. This will not affect patient care or billing. This comment can be deleted. Resolved Problems Problem Noted Date Diagnosed Date Resolved Date Foot ulcer, left infected 03/04/2012 Encounters Date Type Department Care Team Description 11/19/2023 Telephone [facility] [address] [place] [address] Dorinda Washington Beth, DO Refill Request (Lisinopril) 11/18/2023 1:00 PM CDT Patient Outreach [facility] [address] [place] [address] Faith Donovan RN Diabetes (Follow-up) 11/18/2023 Refill [facility] [address] [place] [address] Dorinda Washington, DO Refill Request (Lisinopril 20mg) 11/17/2023 3:56 PM CDT - 11/17/2023 11:59 PM CDT Hospital Encounter [facility] [address] [place] [address] Jacob Lemons MD 11/17/2023 11:00 AM CDT Procedure Only [facility] [address] [place] [address] Jacob Lemons MD Procedure (Botox ) 11/17/2023 Travel 11/13/2023 Refill [facility] [address] [place] [address] Dorinda Washington Beth, DO Refill Request (Atorvastatin) 11/12/2023 11:00 AM CDT Ancillary Procedure [facility] [address] [place] [address] 11/12/2023 Travel 11/10/2023 Refill [facility] [address] [place] [address] Ravin Saini NP Refill Request (Hydrocodone 5/325 mg) 11/07/2023 2:40 PM CDT Office Visit [facility] [address] [facility] [place] [address] Nicole Bowles, OD Follow Up 11/06/2023 2:30 PM CDT Orders Only [facility] [address] [facility] [address] Lab, [place] Lab 11/06/2023 Travel 11/04/2023 Travel 10/28/2023 1:20 PM CDT Telemedicine [facility] [address] [place] [phone] Ross Cardenas MD Telehealth; Consult (Smoking cessation) 10/27/2023 Travel 10/23/2023 12:55 PM CDT Office Visit [facility] [address] [place] [address] Dorinda Washington, DO Preoperative Exam (11/05/23 - R shoulder surgery - ANW - Dr. Clark ); Medication Management (Discuss increase in Ozempic) 10/23/2023 Travel 10/22/2023 Refill [facility] [address] [facility] [place] [address] Sir Washingtoni Beth, DO Refill Request (Lisinopril) 10/13/2023 Refill [facility] [address] [place] [address] Mary Mclean NP Refill Request 09/25/2023 Orders Only [facility] [address] [facility] [address] Sir Washingtoni Beth, DO Outside Order (Ordered by Meena Prado... 09/18/2023 11:00 AM CDT Office Visit [facility] [address] [facility] [address] Whitney Silva MD Follow Up (Primary cancer of left lower lobe of lung (HC)//) 09/18/2023 Travel 09/12/2023 E-Consult [facility] [address] [facility] [place] [address] Norah Vick, Fatimah 09/10/2023 10:35 AM CDT Office Visit [facility] [address] [facility] [address] [place] Dorinda Beth, DO Diabetes (68 Year Old male. medication refill) 09/10/2023 Travel 09/08/2023 Orders Only [facility] [address] [place] [address] Shaqra Dorinda Beth, DO <No scans attached> 09/06/2023 Refill [facility] [address] [facility] [address] Shaqra, Dorinda Beth, DO Refill Request (Metformin) 09/02/2023 3:15 PM CDT Orders Only [place] [address] [place] [address] Lab 09/02/2023 2:30 PM CDT Office Visit [facility] [place] [address] [place] [address] Mary Mclean NP Follow Up (3 month follow up. Chronic pain- neuropathy. Last took hydrocodone last night at 2am.) 09/02/2023 Travel 08/29/2023 Refill [facility] [address] [place] [address] Shaqra, Dorinda Beth, DO Refill Request (Ozempic) from Last 3 Months Immunizations Name Administration Dates Next Due COVID-19 VACCINE COMIRNATY ( CouponCabin-BIONTDxTerity 30MCG/0.3ML) 12YO+ PFS 2023 COVID-19 vaccine (Foodily-Bio NTech 30mcg/0.3mL) 12YO+ BIVALENT PF, MDV 09/04/2022 Hepatitis B, Unspecified 08/09/1991 Influenza, Inactivated AIIV4 (Age 65+ Years) Preserv Free 01/15/2023 Pneumococcal Conj 20-valent (Prevnar 20) 023 Pneumococcal Poly,23-Valent (Pneumovax) 03/07/19 22 Td (Age >=7 Years) 01/10/1971 Tdap 02/04/2023 Zoster (Shingrix-RZV, recombinant) 01/17/2023, Family History Medical History Relation Name Comments Stroke Father Stroke Mother Relation Name Status Comments Father Mother Social History Tobacco Use Types Packs/Day Years Used Date Smoking Tobacco: Every Day Cigarettes 0.8 50.7 Started: 02/24/1973 Passive Smoke Exposure: Past Smokeless Tobacco: Never Tobacco Cessation:Ready to Q uit: Not Asked; Counseling Given: Not Answered Alcohol Use Standard Drinks/Week Comments Yes 0 (1 standard drink = 0.6 oz pur e alcohol) socially 2 drinks a month PHQ-2 Answer Date Recorded PHQ-2 TOTAL SCORE 3 10/11/2022 Social Connections Answer Date Recorded Frequency of Communication with Friends and Fami ly 0 10/03/2022 Financial Resource Strain Answer Date R ecorded Difficulty of Paying Living Expenses 3 10/03/2022 Difficulty of Paying Living Expenses Not on file 10/03/2022 Food Insecurity Answer Date Recorded Worried About Running Out of Food in the Last Ye ar 1 10/03/2022 Transportation Needs Answer Date Record ed Lack of Transportation (Medical) 1 10/03/2022 Housing Stability Answer Date Recorded Unable to Pay for Housing in the Last Year 1 10/03/2022 Sex and Gender Information Value Date Recorded Sex Assigned at Not on file Gender Identity Not on file Sexual Orientation Not on file Obstetrics History Last Filed Vital Signs Vital Sign Reading Time Taken Comments Blood Pressure 116/76 11/17/2023 11:09 AM CDT Pulse 81 11/17/2023 11:09 AM CDT Temperature 36.4 ??C (97.6 ??F) 11/17/2023 1 1:09 AM CDT Respiratory Rate 18 09/18/2023 10:4 7 AM CDT Oxygen Saturation 96% 10/23/2023 12: 53 PM CDT Inhaled Oxygen Concentration - - Weight 103.1 kg (227 lb 6.4 oz) 024 12:53 PM CDT Height 195.6 cm (6' 5) 07/17/2023 8:46 AM CDT Body Mass Index 26.97 07/17/2023 8:46 AM CDT Plan of Treatment Upcoming Encounters Date Type Department Care Team (Latest Contact Info) Description 11/25/2023 11:30 AM CDT Orders Only [facility] [address] [place] [address] [place] 12/02/2023 1:00 PM CDT Office Visit [facility] [address] [place] [address] Zaira Rendon NP [address] [place] [address] 12/05/2023 11:25 AM CDT Nurse/Clinic Staff Only [facility] [address] [facility] [address] 12/10/2023 11:45 AM CDT Orders Only [facility] [address] [place] [address] [place] 12/10/2023 12:55 PM CDT Office Visit [facility] [address] [place] [address] Dorinda Washington, DO [address] [place] [address] 12/11/2023 2:10 PM CDT Nurse/Clinic Staff Only [facility] [address] [place] [address] 12/25/2023 3:20 PM CDT Telemedicine [address] [place] [phone] Ross Cardenas MD [address] [place] [address] [place] [address] 12/26/2023 1:00 PM CDT Office Visit [facility] [address] [place] [address] Nicole Bowles, OD [address] [place] [address] 12/30/2023 11:00 AM CERAMIC TILER Preop Visit [facility] [address] [place] [address] Dorinda Washington, DO [address] [place] [address] 01/14/2024 8:45 AM CERAMIC TILER Hospital Encounter [facility] [address] [place] [address] [place] [address] [place] [address] 01/14/2024 8:45 AM CERAMIC TILER - 01/14/2024 11:49 AM CERAMIC TILER Surgery [facility] [address] [place] [address] [place] [address] [place] [address] RIGHT TOTAL SHOULDER ARTHROPLASTY 02/12/2024 1:00 PM CERAMIC TILER Office Visit [facility] [address] [facility] [address] [place] [address] [place] [address] [place] [address] 02/16/2024 12:45 PM CERAMIC TILER Orders Only [facility] [address] [facility] [address] [place] 02/23/2024 1:00 PM CERAMIC TILER Office Visit [facility] [address] [place] [phone] Whitney Silva MD [address] [facility] [place] [address] Scheduled Procedures Name Priority Associated Diagnoses Date/Ti me ARTHROPLASTY SHOULDER Elective GLENOHUMERAL JOINT OSTEOARTHRITIS 01/14/2024 8:45 AM CERAMIC TILER ARTHROPLASTY REVERSE SHOULDER Elective GLENOHUMERAL JOINT OSTEOARTHRITIS 01/14/2024 8:45 AM CERAMIC TILER SURGICAL PROCEDURE (TYPE PROCEDURE DESCRIPTION BELOW) Primary cancer of left lower lobe of lung (HC) Health Maintenance Due Date Last Done Comments Colonoscopy through age 75 1998 Medicare Wellness for age 65+ 2018 Depression screening for age 12+ 10/12/2023 10/12/19, 10/02/2022 COVID-19 vaccine series ( season) 2023 2023, 09/04/2022, 09/04/2022, Additional history exists Influenza for age 65+ 10/26/2023 01/15/2023 BMI (ht and wt on same day) for age 18+ 07/16/2024 07/17/2023, 02/19/2023, 09/19/2022 Lipids for age 45-75 02/05/2028 02/04/2023 Tetanus booster 02/04/2033 02/04/2023, 01/10/1971 Pneumococcal series for age 65+ Completed , 03/07/2021 Zoster (shingles) series for age 50+ Completed 01/17/2023, 11/08/2022 Hepatitis C screening for ag e 18-79 Completed 02/04/2023 Tdap Completed 02/04/2023 AAA screening age 65-74 Completed 02/21/2023 Procedures Procedure Name Priority Date/Time Associated Diagnosis Comments CT CHEST W Routine 11/12/2023 12:03 PM CDT Malignant neoplasm of lower lobe, left bronchus or lung (HC) POTASSIUM Routine 11/06/2023 2:36 PM CDT Serum potassium elevated EKG 12 LEAD UNIT PERFORMED Routine 10/29/2023 1:58 PM CDT Pre-op exam NM READING EKG - NO CHARGE, COMP ONLY Routine 10/29/2023 1:47 PM CDT Pre-op exam HEMOGLOBIN Routine 10/23/2023 1:51 PM CDT Pre-op exam CREATININE Routine 10/23/2023 1:51 PM CDT Pre-op exam POTASSIUM Routine 10/23/2023 1:51 PM CDT Pre-op exam CBC WITH AUTO DIFFERENTIAL Add On 09/10/2023 10:36 AM CDT Bruising CBC WITH AUTO DIFFERENTIAL Add On 09/10/2023 10:36 AM CDT Bruising EXTRA TUBE GOLD/SST Routine 09/10/2023 1 0:36 AM CDT Type 2 diabetes mellitus with diabetic 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, unspecified whether longterm insulin use (HC) HEMOGLOBIN A1C Routine 09/10/2023 10:36 AM CDT Type 2 diabetes mellitus with diabetic 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, unspecified whether longterm insulin use (HC) COMPLIANCE DRUG ANALYSIS Routine 09/02/2023 3:19 PM CDT Encounter for therapeutic drug monitoring US ABD AORTA SCREENING Routine 02/21/2023 10:11 AM CERAMIC TILER Screening for AAA (aortic abdominal aneurysm) ANTI HCV Routine 02/04/2023 11:56 AM CERAMIC TILER Need for hepatitis C screening test LIPID PANEL W REFLEX MEASURED LDL Routine 02/04/2023 11:56 AM CERAMIC TILER Screening for lipid disorders from Last 3 Months or Most Recently Relevant to Health Maintenance Results * CT CHEST W (11/12/2023 12:03 PM CDT) Anatomical Region Laterality Modality CHEST, THORAX, HEART Computed To mography 11/13/2023 2:14 PM CDT Narrative 11/13/2023 2:14 PM CDT For Patients: ??As a result of the Cures Act, medical imaging exams and procedure reports are released immediately into your electronic medical record. ??You may view this report before your referring provider. ??If you have questions, please contact your health care provider. Indication: Malignant neoplasm of lower lobe, left bronchus or lung Technique: CT CHEST W Omnipaque 350 100 ML Please note that all CT scans at this facility use dose modulation, iterative reconstruction, and/or weight-based dosing when appropriate to reduce radiation dose to as low as reasonably achievable. Comparison: 06/02/2023 Findings: Mild fibrotic changes are present in a peripheral distribution bilaterally, similar to the prior study. A few scattered small nodules are present particularly in the right lower lobe, measuring 3 millimeters or less. No pleural effusion. No pneumothorax. No enlarged lymph nodes. Decreased conspicuity of left lower lobe nodular density adjacent to the bronchovascular bundle measuring 7 millimeters. Associated soft tissue fullness of the adjacent bronchovascular bundle noted. Degenerative changes. No fracture. Calcified stones in the gallbladder. No adrenal nodule. Impression: Decreased conspicuity/size of the left lower lobe pulmonary nodule adjacent to the left lower lobe bronchovascular bundle, now measuring 7 millimeters compared to 14 millimeters. Mild soft tissue fullness of the left lower lobe bronchovascular bundle, difficult to directly compare as the prior study does not have intravenous contrast present. No enlarged thoracic lymph nodes. Mild pulmonary fibrosis. Please note that all CT scans at this facility use dose modulation, iterative reconstruction, and/or weight-based dosing when appropriate to reduce radiation dose to as low as reasonably achievable. Dictated by Abel Valverde MD @ 11/13/2023 2:14:06 PM (Electronically Signed) Procedure Note Abel Valverde MD - 11/13/2023 For Patients: As a result of the Cures Act, medical imagingexams and procedure reports are released immediately into your electronicmedical record. You may view this report before your referring provider.If you have questions, please contact your health care provider. Indication: Malignant neoplasm of lower lobe, left bronchus or lung Technique: CT CHEST W Omnipaque 350 100 ML Please note that all CT scans at this facility use dose modulation,iterative reconstruction, and/or weight-based dosing when appropriate toreduce radiation dose to as low as reasonably achievable. Comparison: 06/02/2023 Findings: Mild fibrotic changes are present in a peripheral distributionbilaterally, similar to the prior study. A few scattered small nodules arepresent particularly in the right lower lobe, measuring 3 millimeters orless. No pleural effusion. No pneumothorax. No enlarged lymph nodes.Decreased conspicuity of left lower lobe nodular density adjacent to thebronchovascular bundle measuring 7 millimeters. Associated soft tissuefullness of the adjacent bronchovascular bundle noted. Degenerativechanges. No fracture. Calcified stones in the gallbladder. No adrenalnodule. Impression: Decreased conspicuity/size of the left lower lobe pulmonary noduleadjacent to the left lower lobe bronchovascular bundle, now measuring 7millimeters compared to 14 millimeters. Mild soft tissue fullness of the left lower lobe bronchovascular bundle,difficult to directly compare as the prior study does not have intravenouscontrast present. No enlarged thoracic lymph nodes. Mild pulmonary fibrosis. Please note that all CT scans at this facility use dose modulation,iterative reconstruction, and/or weight-based dosing when appropriate toreduce radiation dose to as low as reasonably achievable. Dictated by Abel Valverde MD @ 11/13/2023 2:14:06 PM (Electronically Signed) Kev Hoffmann MD CT * POTASSIUM (11/06/2023 2:36 PM CDT) Only the most recent of2 resultswithin the time period is included. POTASSIUM 4.5 3.5 - 5.1 mmol/L 11/07/2023 3:48 AM CDT [facility] Blood BLOOD SPECIMEN / Unknown Venipuncture / Unknown 11/06/2023 2:36 PM CDT 11/06/2023 2:36 PM CDT Dorinda Washington DO CHEMISTRY [facility] [address] [place] [address], * EKG 12 LEAD UNIT PERFORMED (10/29/2023 1:58 PM CDT) Dorinda Washington DO EKG ORD * NM READING EKG - NO CHARGE, COMP ONLY (10/29/2023 1:47 PM CDT) DorindaVimty Sandeepcheng DIAZ PB - PROVIDER READIN GS * (ABNORMAL) HEMOGLOBIN (10/23/2023 1:51 PM CDT) Pathologist [facility] HEMOGLOBIN 12.6(L) 13.5 - 17.5 g/dL 10/23/2023 1:55 PM CDT [facility] MCV 91 80 - 100 fL 10/23/2023 1:55 PM CDT [facility] Blood BLOOD SPECIMEN / Unknown Venipuncture / Unknown 10/23/2023 1:51 PM CDT 10/23/2023 1:51 PM CDT [facility] HEMATOLOGY Performing Organization Address [facility]/ZIP Co de Phone Number [facility] [address] [place] [address], [place] [phone] * (ABNORMAL) CREATININE (10/23/2023 1:51 PM CDT) [facility] eGFR 44(L) >90 mL/min/1.7 3m2 10/23/2023 10:57 PM CDT [facility] [employer] [facility] [place] [facility] LABORATORY Comment:As of 2021, eG FR is calculated by the CKD-EPI creatinine equation without race adjustment. ??eGFR can be influenced by muscle mass, exercise, and diet. ??The reported eGFR is an estimation only and is only applicable if the renal function is stable. CREATININE 1.65(H) 0.70 - 1.20 mg/dL 10/23/2023 10:57 PM CDT [facility]ERSilvergate PharmaceuticalsKING[facility] Blood BLOOD SPECIMEN / Unknown Venipuncture / Unknown 10/23/2023 1:51 PM CDT 10/23/2023 1:51 PM CDT [employer] CHEMISTRY [facility] Software[facility]ENTRAL LABORATORY [address] [place] [address], [place] * (ABNORMAL) CBC WITH AUTO DIFFERENTIAL (09/10/2023 10:36 AM CDT) WHITE BLOOD COUNT 6.3 4.5 - 11.0 thou/cu mm 09/10/2023 11:39 AM CDT [facility] RED BLOOD COUNT 4.12(L) 4.30 - 5.90 mil/cu mm 09/10/2023 11:39 AM CDT [facility] HEMOGLOBIN 12.9(L) 13.5 - 17.5 g/dL 09/10/2023 11:39 AM CDT [facility] HEMATOCRIT 37.0 37.0 - 53.0 % 09/10/2023 11:39 AM CDT [facility] MCV 90 80 - 100 fL 09/10/2023 11:39 AM CDT [facility] MCH 31.3 26.0 - 34.0 pg 09/10/2023 11:39 AM CDT [facility] MCHC 34.9 32.0 - 36.0 g/dL 09/10/2023 11:39 AM CDT [facility] RDW 12.9 11.5 - 15.5 % 09/10/2023 11:39 AM CDT [facility] PLATELET COUNT 181 140 - 440 thou/cu mm 09/10/2023 11:39 AM CDT [facility] MPV 12.1(H) 6.5 - 11.0 fL 09/10/2023 11:39 AM CDT [facility] % NEUT 64.5 % 09/10/2023 11:39 AM CDT [facility] % LYMPH 21.0 % 09/10/2023 11:39 AM CDT [facility] % MONO 9.3 % 09/10/2023 11:39 AM CDT [facility] % EOS 4.4 % 09/10/2023 11:39 AM CDT [facility] % BASO 0.8 % 09/10/2023 11:39 AM CDT [facility] ABSOLUTE NEUTROPHILS 4.1 1.7 - 7.0 thou/cu mm 09/10/2023 11:39 AM CDT [facility] ABSOLUTE LYMPHOCYTES 1.3 0.9 - 2.9 thou/cu mm 09/10/2023 11:39 AM CDT [facility] ABSOLUTE MONOCYTES 0.6 <0.9 thou/cu mm 09/10/2023 11:39 AM CDT [facility] ABSOLUTE EOSINOPHILS 0.3 <0.5 thou/cu mm 09/10/2023 11:39 AM CDT [facility] ABSOLUTE BASOPHILS 0.1 <0.3 thou/cu mm 09/10/2023 11:39 AM CDT [facility] Blood BLOOD SPECIMEN / Unknown Venipuncture / Unknown 09/10/2023 10:36 AM CDT 09/10/2023 10:39 AM CDT Dorinda Washington DO HEMATOLOGY [facility] [address] [place] [address], * EXTRA TUBE GOLD/SST (09/10/2023 10:36 AM CDT) Blood BLOOD SPECIMEN / Unknown Venipuncture / Unknown 09/10/2023 10:36 AM CDT 09/10/2023 10:39 AM CDT Dorinda Washington DO LABORATORY Performing Organization Address [facility]/State/ZIP Co de Phone Number [facility] [address] [place] [address], * (ABNORMAL) HEMOGLOBIN A1C MONITORING (POCT) (09/10/2023 10:36 AM CDT) Pathologist [facility] HEMOGLOBIN A1C MONITORING (POCT) 9.5(H) <=6.4 % 09/10/2023 10:50 AM CDT [facility] Blood BLOOD SPECIMEN / Unknown Venipuncture / Unknown 09/10/2023 10:36 AM CDT 09/10/2023 10:39 AM CDT Narrative [facility] - 09/10/2023 10:50 AM CDT ? (<=6.9%) ? Indicates good control ? (7.0% to 7.9%) ? Indicates fair control ? (>=8.0%) ? Indicates poor control ?? NOTE: ??These thresholds are guidelines and ?individual targets may vary. Falsely low levels may be seen with: Recent Transfusion, Recent Significant Blood Loss, Hemolytic Diseases, or Falsely elevated levels may be seen with: Untreated Anemias, Splenectomy ? Dorinda Washington DO CHEMISTRY [facility] [address] [place] [address], * (ABNORMAL) COMPLIANCE DRUG ANALYSIS (09/02/2023 3:19 PM CDT) 6-MONOACETYL MORPHINE NEG NEG ng/mL 09/04/2023 12:[address] [facility] AMPHETAMINE URINE NEG <=500 ng/mL 09/04/2023 12:[address] [facility] BARBITURATE URINE NEG <=200 ng/mL 09/04/2023 12:[address] [facility] BENZODIAZEPINE URINE NEG <=100 ng/mL 09/04/2023 12:[address] [facility] BUPRENORPHRINE URINE NEG <=5 ng/mL 08/24 12:[address] [facility] COCAINE METAB URINE NEG <=300 ng/mL 09/04/2023 12:[address] [facility] ETHYLGLUCURONIDE URINE NEG <=250 ng/mL 09/04/2023 12:[address] [facility] FENTANYL URINE NEG <=4 ng/mL 09/04/2023 12:[address] [facility] METHADONE URINE NEG <=300 ng/mL 09/04/2023 12:[address] [facility] OPIATES URINE POS(A) <=300 ng/mL 09/04/2023 12:20 PM [facility] OXYCODONE URINE NEG <=100 ng/mL 09/04/2023 12:20 PM [facility] PROPOXYPHENE URINE NEG <=300 ng/mL 09/04/2023 12:20 PM [facility] THC 50 URINE NEG <=50 ng/mL 09/04/2023 12:20 PM [facility] TRAMADOL NEG <=200 ng/mL 09/04/2023 12:20 PM [facility] PH URINE 5.2 5.0 - 7.0 09/04/2023 12:20 PM [facility] CREAT UR 75 >=20 mg/dL 09/04/2023 12:20 PM [facility] MASS SPECTROMETRY URINE See Below 09/04/2023 12:20 PM [facility] Comment:Amitriptyline, Nortr iptyline, Hydrocodone, Norhydrocodone, Lidocaine and Metformin present. Urine URINE SPECIMEN / Unknown Non-Blood / Unknown 09/02/2023 3:19 PM T 09/02/2023 3:19 PM [facility] - 09/04/2023 12:20 PM [facility] Current Outpatient Medications: allopurinoL (ZYLOPRIM) 100 mg tablet, Take 50 mg by mouth. amitriptyline (ELAVIL) 10 mg tablet, Take 1 Tablet (10 mg) by mouth at bedtime. For chronic neuropathic/ chronic pain syndrome. amLODIPine (NORVASC) 10 mg tablet, Take 1 Tablet (10 mg) by mouth once daily. aspirin chewable 81 mg chewable tablet, Chew 81 mg by mouth once daily with a meal. atorvastatin (LIPITOR) 80 mg tablet, Take 1 Tablet (80 mg) by mouth once daily with evening meal. blood sugar diagnostic (AtilektTouch Verio test strips) strip, Dispense item covered by pt ins. E11.9 NIDDM type II - Test 3 times/day, Reason: High A1C diclofenac topical (Voltaren) 1 % gel, Apply 4 g topically to affected area(s) four times daily. fish oil-omega-3 fatty acids 1,000-340 mg capsule, Take 1 g by mouth once daily. glipiZIDE extended-release (GLUCOTROL XL) 10 mg Extended-Release tablet, Take 2 Tablets (20 mg) by mouth once daily before a meal. HYDROcodone-acetaminophen (5-325 mg/tablet), Take one tablet by mouth two times a day as needed for pain. ??Max acetaminophen dose: 4000 mg in 24 hrs. ??Rx to last 30 days. use dates: 09/13/2023 - 10/12/2023 HYDROcodone-acetaminophen (5-325 mg/tablet), Take one tablet by mouth two times a day as needed for pain. ??Max acetaminophen dose: 4000 mg in 24 hrs. ??Rx to last 30 days. use dates: 10/13/2023 - 11/11/2023 lancets (OneTouch Delica Plus Lancet) 30 gauge misc, As directed. Dispense item covered by pt ins. E11.9 NIDDM type II - Test 3 times/day, Reason: High A1C lisinopriL (PRINIVIL; ZESTRIL) 40 mg tablet, Take 1/2 tablet (20 mg) twice daily metFORMIN (GLUCOPHAGE) 1,000 mg tablet, Take 1 Tablet (1,000 mg) by mouth two times daily with meals. semaglutide (Ozempic) 1 mg/dose (4 mg/3 mL) pen, INJECT 1MG SUBCUTANEOUS ONCE WEEKLY sennosides-docusate (SENOKOT S) (8.6-50 mg) tablet, Use one tablet daily for constipation; use up to 2 tablets twice daily as needed for worsening of constipation No current facility-administered medications for this visit. As of 09/02/2023 This procedure was originally ordered at [facility] Release to patient->Immediate Mary Mclean NP URINE [facility] [address] [place] [address], [place] * US ABD AORTA SCREENING [[id number]] (02/21/2023 10:11 AM CERAMIC TILER) Anatomical Region Laterality Modality Abdomen, AORTA Ultrasound 02/21/2023 2:18 PM CERAMIC TILER Narrative 02/21/2023 2:18 PM [facility]ERAM[facility] TILER For Patients: ??As a result of the Cures Act, medical imaging exams and procedure reports are released immediately into your electronic medical record. ??You may view this report before your referring provider. ??If you have questions, please contact your health care provider. Examination: US abdominal aorta Indication: Abdominal aortic aneurysm screening. Technique: Bergman scale and color Doppler images of the aorta and common iliac arteries are obtained. Comparison: 07/28/2018 Findings: Proximal aorta: 3.7 x 3.7 cm Mid aorta: 2.9 x 2.7 cm Distal aorta: 2.0 x 2.3 cm Right common iliac artery: 1.5 x 1.5 cm Left common iliac artery: 1.4 x 1.5 cm Recommended imaging interval for ectatic aorta: 3.5-3.9 cm: 2 years Impression: Aneurysm of the proximal aorta measuring 3.7 cm. Dictated by Abel Valverde MD @ Feb 21 2023 ??2:18PM (Electronically Signed) ?? Procedure Note Abel Valverde MD - 02/21/2023 For Patients: As a result of the Cures Act, medical imagingexams and procedure reports are released immediately into your electronicmedical record. You may view this report before your referring provider.If you have questions, please contact your health care provider. Examination: US abdominal aorta Indication: Abdominal aortic aneurysm screening. Technique: Bergman scale and color Doppler images of the aorta and common iliac arteriesare obtained. Comparison: 07/28/2018 Findings: Proximal aorta: 3.7 x 3.7 cm Mid aorta: 2.9 x 2.7 cm Distal aorta: 2.0 x 2.3 cm Right common iliac artery: 1.5 x 1.5 cm Left common iliac artery: 1.4 x 1.5 cm Recommended imaging interval for ectatic aorta: 3.5-3.9 cm: 2 years Impression: Aneurysm of the proximal aorta measuring 3.7 cm. Dictated by Abel Valverde MD @ Feb 21 2023 2:18PM (Electronically Signed) Dorinda Campos Sandeepcheng DO US * (ABNORMAL) LIPID PANEL W REFLEX MEASURED LDL [[id number]] (02/04/2023 11:56 AM CERAMIC TILER) CHOLESTEROL,TOTAL 95(L) 100 - 199 mg/dL 02/04/2023 9:33 PM [facility] TRAL LABORATORY Comment: Cholesterol, Total Reference Ranges Desirable <200 mg/dL Borderline 200-239 mg/dL High >=240 mg/dL TRIGLYCERIDES 117 <150 mg/dL 02/04/2023 9:33 PM [facility] TIL[facility] TRAL LAB[facility]AT[facility] HDL CHOLESTEROL 49 >40 mg/dL 9:33 PM [facility] T[facility]ER [facility] TRAL LAB[facility]ATORY NON-HDL CHOLESTEROL 46 <145 mg/dl 02/04/2023 9:33 PM [facility] TILER [facility] TRAL LABORATORY CHOL/HDL RATIO 1.94 <4.50 02/04/2023 9:33 PM [facility]ERAM[facility] TILER [facility] TRAL LABORATORY LDL CHOLESTEROL 23 <=130 mg/dL 02/04/2023 9:33 PM CERAMIC TILER [facility] TRAL LABORATORY VLDL CHOLESTEROL 23 <=30 mg/dL 02/04/2023 9:33 PM [facility]ERAMIC TILER [facility] TRA LABORATORY PROVIDER ORDERED STATUS RANDOM 02/04/2023 9:33 PM [facility]ER[facility] T[facility]ER [facility] TRA LABORATORY Blood BLOOD SPECIMEN / Unknown Venipuncture / Unknown 02/04/2023 11:56 AM CERAMIC TILER 02/04/2023 11:58 AM [facility]ERAMIC TILER Dorinda Washington DO [facility] [address] [place] [id number], * ANTI HCV (02/04/2023 11:56 AM CERAMIC TILER) HEPATITIS C ANTIBODY Non-Reacti ve Non-React nerissa 02/04/2023 9:39 PM CERAMIC TILER [facility] TRAL LABORATORY Comment:Please note, per www .CDC.gov: If a patient is known to be at high risk of HCV infection, or is symptomatic, and the physician's suspicion of HCV infection is high, HCV RNA testing is often employed and is of diagnostic value, even after an initial negative anti-HCV test result. Blood BLOOD SPECIMEN / Unknown Venipuncture / Unknown 02/04/2023 11:56 AM CERAMIC TILER 02/04/2023 11:58 AM CERAMIC TILER Dorinda Washington DO SEND OUTS [facility]-CENTRAL LABORATORY [address] [place] [address], from Last 3 Months or Most Recently Relevant to Health Maintenance Advance Directives * Full Code (Latest Code Status on File) Date Activated Date Inactivated Comments 07/04/2023 1:23 PM 07/04/2023 6:25 PM Question Answer Comments Code Status Discussion: Other Care Teams Linux Kernel Engineer Relationship Specialty Start Date End Date Dorinda Washington [place] [address] PCP - General Family Practice 09/04/22 Whitney Silva MD [address] [place] [address] [place] [address] Medical Oncologist Hematology and Oncology 12/26/22 Raisa White, DISINTEGRATOR OPERATOR [address] [place] [address] Nurse Practitioner Hematology and Oncology 12/26/22 Faith Donovan, RN [address] [place] [address] Order Checker Packer Processer 02/11/23 Kennedi Perry, RN, BSN, OCN [address] [place] [address] Nurse Navigator - Oncology Registered Nurse 02/19/23 Mary Mclean NP [address] [place] [address] Nurse Practitioner - Family 02/25/23 Hina Campbell RN [address] [place] [address] Nurse Navigator - Oncology Registered Nurse 06/06/23 Jin Shipley MD [address] [facility] [address] [place] [address] Nephrology 07/17/23 Han Bradley MD [address] [place] [address] Physical Medicine and Rehabilitation 07/17/23
--- OUTSIDE RECORDS SUMMARY | 2023-11-19 12:00 | XMS_ITS | Encounter Summary ---
Author Organization [facility] Address [address] [place] [address] Phone Care Team Providers Care Product Accountant Name Role Phone Yousuf Bernard MD Primary Care Provider [phone] Reason for Visit * Reason Comments Med Refill Encounter Details Date Type Department Care Team (Late Contact Info) Description 10/22/2023 Refill [facility] [address] [place] [address] Jin Shipley MD [address] [place], [place] [address]e [facility] [address] [place] [id number] Social History Tobacco Use Types Packs/Day Years Used Date Smoking Tobacco: Every Day Cigarettes Smokeless Tobacco: Never Alcohol Use Standard Drinks/Week Comments Yes 0 (1 standard drink = 0.6 oz pur e alcohol) Occasional Sex and Gender Information Value Date Recorded Sex Assigned at Not on file Gender Identity Not on file Sexual Orientation Not on file documented as of this encounter Plan of Treatment Upcoming Encounters Date Type Department Care Team (Late Contact Info) Description 12/08/2023 9:30 AM CDT Office Visit [facility] [address] [place] [address] [facility] [address] [place] [address] documented as of this encounter Visit Diagnoses Not on filedocumented in this encounter Care Teams Product Accountant Relationship Specialty Start Date End Date Yousuf Bernard MD [address] [address] PCP - General 02/14/23 documented as of this encounter
--- OUTSIDE RECORDS SUMMARY | 2023-11-19 12:00 | XMS_ITS | Encounter Summary ---
Author Organization [facility] Address [address] [place] [address] Phone Care Team Providers Care Woodwind Instrument Repairer Name Role Phone Yousuf Bernard MD Primary Care Provider [phone] Encounter Details Date Type Department Care Team (Late st Contact Info) Description 09/24/2023 Telephone [employer] [facility] [address] [place], [place] [address] Samantha To RN Social History Tobacco Use Types Packs/Day Years [...] encounter Miscellaneous Notes * Telephone Encounter - Samantha To RN - 09/24/2023 2:46 PM CDT Labs and litholink sent * Telephone Encounter - Samantha To RN - 09/24/2023 2:46 PM CDT ----- Message from Meena Dover sent at 09/12/2023 11:59 AM CDT ----- Sorry not sure if my previous message sent. But can he get a 24h litholink and then labs faxed to [facility] (renal panel, UA with reflex, UACR, and PTH). Thanks! documented in this encounter Plan of Treatment Upcoming Encounters Date Type Department Care Team (Late st Contact Info) Description 12/08/2023 9:30 AM CDT Office Visit [facility] [address] [facility] [address] [place], [place] [id number] Meena Dover MD [address] [facility] [address] [place], [place] [id number] documented as of this encounter Visit Diagnoses Not on filedocumented in this encounter Care Teams Woodwind Instrument Repairer Relationship Specialty Start Date End Date Yousuf Bernard MD [address] [place] [address] PCP - General 02/14/23 documented as of this encounter
--- OUTSIDE RECORDS SUMMARY | 2023-11-19 12:00 | XMS_ITS | Referral Summary ---
Author Organization [facility] Address [address] [place] [address] Care Team Providers Care Formulation Chemist Name Role Phone Yousuf Bernard MD Primary Care Provider [phone] Abrahan Bower MD Unavailable [phone] Allergies No known active allergies Medications Medication Sig Dispensed Refills Start Date End Date Status meclizine (ANTIVERT) 25 MG tablet Take 1 tablet (25 mg) by mouth 3 times daily as needed for dizziness 15 tablet 06/16/2022 Active amLODIPine (NORVASC) 10 MG tablet Take 10 mg by mouth daily for blood pressure 06/19/2022 Active aspirin (ASA) 81 MG chewable tablet Take 81 mg by mouth daily 08/14/2022 Active atorvastatin (LIPITOR) 80 MG tablet Take 80 mg by mouth daily 08/14/2022 Active glipiZIDE (GLUCOTROL XL) 10 MG 24 hr tablet Take 20 mg by mouth every morning 06/26/2022 Active lisinopril (ZESTRIL) 40 MG tablet Take 40 mg by mouth daily 07/20/2022 Active sitagliptin (JANUVIA) 25 MG tablet Take 1 tablet by mouth daily 08/20/2022 Active ticagrelor (BRILINTA) 90 MG tablet Take 90 mg by mouth 2 times daily 08/14/2022 Active sennosides (SENOKOT) 8.6 MG tablet Take 1 tablet by mouth daily Active HYDROcodone-acetamin ophen (NORCO) 5-325 MG tablet Take 0.5-1 tablets by mouth daily as needed for pain Active metFORMIN (GLUCOPHAGE) 1000 MG tablet Take 1,000 mg by mouth 2 times daily (with meals) 08/14/2022 Active oxyCODONE (ROXICODONE) 5 MG tablet Take 1 tablet by mouth 08/20/2022 Active fish oil-omega-3 fatty acids 1000 MG capsule Take 1 g by mouth Active lidocaine (XYLOCAINE) 5 % external ointment Apply topically three times a day. 08/20/2022 Active ONETOUCH ULTRA test strip TEST UP TO THREE TIMES DAILY Active blood glucose ([employer] BLOOD GLUCOSE TEST) test strip Dispense test strips covered by the patient insurance. Test up to 3 times per day. One Touch Ultra 09/04/2022 Active blood glucose (ACCU-CHEK SMARTVIEW) test strip TEST TWICE A DAY for 50 Active acetaminophen (TYLENOL) 325 MG tablet Take 650 mg by mouth 08/20/2022 Active Active Problems Problem Noted Date Diagnosed Date Kidney stone 09/16/2022 Hydronephrosis with urinary obstruction due to ureteral calculus 09/16/2022 Bilateral nephrolithiasis 09/16/2022 Cerebrovascular accident (CVA), unspecified mech anism 09/05/2022 Social History Tobacco Use Types Packs/Day Years Used Date Smoking Tobacco: Every Day Cigarettes 0.5 50 Smokeless Tobacco: Never Tobacco Cessation:Ready to Q uit: Not Asked; Counseling Given: Not Answered Alcohol Use Standard Drinks/Week Comments Yes 0 (1 standard drink = 0.6 oz pur e alcohol) 4 drinks per month Adolescent Education Answer Date Record ed Getting School Help Needed Not on file 11/16 Sex and Gender Information Value Date Recorded Sex Assigned at Not on file Gender Identity Not on file Sexual Orientation Not on file Last Filed Vital Signs Vital Sign Reading Time Taken Comments Blood Pressure 128/86 10/11/2022 11:01 AM CDT Pulse 87 10/04/2022 5:04 PM CDT Temperature 36.7 ??C (98 ??F) 10/04/2022 5:04 PM CDT Respiratory Rate 14 10/04/2022 4:38 PM CDT Oxygen Saturation 99% 10/04/2022 3:55 PM CDT Inhaled Oxygen Concentration - - Weight 99.8 kg (220 lb) 10/11/2022 11:01 AM CDT Height 195.6 cm (6' 5) 10/11/2022 11:01 AM CDT Body Mass Index 26.09 10/11/2022 11:01 AM CDT Plan of Treatment Not on file Medical Devices Implanted Type Area Muck Hauler Device Identifier Shelf Expiration Date Model / Serial / Lot Polaris Ultra [id number] Implanted:Qty : 1 on 10/04/2022 by Abrahan Bower MD at [facility] Right: [employer] [id number] 08/01/2025 [id number] / / [id number] Polaris Ultra 5f X 28cm Implanted:Qty : 1 on 10/04/2022 by Abrahan Bower MD at [facility] Left: [employer]ter [employer] [id number] 08/01/2025 [id number] 40 / / [id number] Explanted Type Area Muck Hauler Device Identifier Shelf Expiration Date Model / Serial / Lot Polaris Ultra, 5f X28cm Implanted:Qty: 1 on 09/16/2022 by Abrahan Bower MD at [facility] Explanted:Qty: 1 on 10/04/2022 by Abrahan Bower MD at [facility] Left: [employer] 05/22/2025 [id number] 0 / / [id number] Polaris Ultra, 5f X28cm Implanted:Qty: 1 on 09/16/2022 by Abrahan Bower MD at [facility] Explanted:Qty: 1 on 10/04/2022 by Abrahan Bower MD at [facility] Right: U[employer]ter [employer] 05/22/2025 [id number] / / [id number] Procedures Procedure Name Priority Date/Time Associated Diagnosis Comments GLUCOSE BY METER Routine 10/04/2022 10:2 3 AM CDT BASIC METABOLIC PANEL Routine 09/18/2022 12:33 PM CDT Acute kidney failure, unspecified (H) Chronic kidney disease, stage III (moderate) (H) LIPID PROFILE Routine 07/12/2020 9:47 AM CDT Abnormal blood chemistry Diabetes mellitus (H) Protein in urine Screening for prostate cancer Benign hypertension from Last 3 Months or Most Recently Relevant to Health Maintenance Results * (ABNORMAL) Glucose by meter (10/04/2022 10:23 AM CDT) GLUCOSE BY METER POCT 174(H) 70 - 99 mg/dL 10/04/2022 10:29 AM CDT [facility] POC Blood, Capillary BLOOD SPECIMEN / Unknown 10/04/2022 10:23 AM CDT 10/04/2022 10:29 AM CDT Abrahan Bower MD LAB - [facility] Acute Care Lab [address] Lab (1st floor, no room number) [place] [address], [facility] [phone] * (ABNORMAL) Basic metabolic panel (09/18/2022 12:33 PM CDT) [facility] Sodium 139 136 - 145 mmol/L 09/18/2022 12:52 PM CDT LABORATORY Potassium 4.1 3.4 - 5.3 mmol/L 09/18/2022 12:52 PM CDT LABORATORY Chloride 106 98 - 107 mmol/L 09/18/2022 12:52 PM CDT LABORATORY Carbon Dioxide (CO2) 19(L) 22 - 29 mmol/L 09/18/2022 12:52 PM CDT LABORATORY Anion Gap 14 7 - 15 mmol/L 09/18/2022 12:52 PM CDT LABORATORY Urea Nitrogen 35.3(H) 8.0 - 23.0 mg/dL 09/18/2022 12:52 PM CDT LABORATORY Creatinine 2.04(H) 0.67 - 1.17 mg/dL 09/18/2022 12:52 PM CDT LABORATORY Calcium 9.6 8.8 - 10.2 mg/dL 09/18/2022 12:52 PM CDT LABORATORY Glucose 153(H) 70 - 99 mg/dL 09/18/2022 12:52 PM CDT LABORATORY GFR Estimate 35(L) >60 mL/min/1.7 3m2 09/18/2022 12:52 PM CDT LABORATORY Blood STRUCTURE OF LEFT UPPER LIMB / Unknown Venipuncture / Unknown 09/18/2022 12:33 PM CDT 09/18/2022 12:33 PM CDT Jin Shipley MD LAB - BLOOD ORDERA BLES LABORATORY [facility] Acute Care Lab [address] Lab (1st floor, no room number) [place] [address], [facility] [phone] * Lipid panel (07/12/2020 9:47 AM CDT) [facility] Signature Cholesterol 163 <200 mg/dL 07/12/2020 11:10 AM CDT [facility] Triglycerides 126 <150 mg/dL 07/12/2020 11:05 AM CDT [facility] HDL Cholesterol 42 >39 mg/dL 11:05 AM CDT [facility] LDL Cholesterol Calculated 96 <100 mg/dL 07/12/2020 11:10 AM CDT [facility] Comment:Desirable: <100 mg/d l Non HDL Cholesterol 121 <130 mg/dL 07/12/2020 11:10 AM CDT [facility] Blood 07/12/2020 9:47 AM CDT 07/12/2020 10:33 AM CDT Yousuf Bernard MD LAB - BLOOD ORDERABL ES [facility] [address] [place] [address], [facility] [phone] from Last 3 Months or Most Recently Relevant to Health Maintenance Advance Directives For more information, please contact: [phone] * Full Code (Latest Code Status on File) Date Activated Date Inactivated Comments 09/16/2022 2:18 AM 09/17/2022 2:28 PM All basic an d advanced life-sustaining interventions are performed as appropriate Question Answer Comments Code status determined by: Discussion with patie nt/ legal decision maker Care Teams Formulation Chemist Relationship Specialty Start Date End Date Yousuf Bernard MD [facility] [address] [facility] [address] [place] [address] PCP - General Family Medicine 06/16/22 Abrahan Bower MD [address] [facility] [address] [place] [address] Assigned Surgical Provider 10/12/22
--- OUTSIDE RECORDS SUMMARY | 2023-11-19 12:00 | XMS_ITS | Encounter Summary ---
Author Organization [place] Address [facility] [place] [address] Care Team Providers Care Production Control Supervisor Name Role Phone Yousuf Bernard MD Primary Care Provider [phone] Abrahan Bower MD Unavailable [phone] Reason for Visit * Reason Onset Date Comments Call Back 10/03/2022 Encounter Details Date Type Department Care Team (Late st Contact Info) Description 10/03/2022 Telephone [facility] [place] [address] [place] [address] Abrahan Bower MD [address] [place] [address] Call Back Social History Tobacco Use Types Packs/Day Years [...] encounter Miscellaneous Notes * Telephone Encounter - Tia Crenshaw - 10/03/2022 2:24 PM CDT [facility] Phone Message May a detailed message be left on voicemail: yes Reason for Call: Other: . Dorinda wants Provider to know that pt needs to continue taking the aspirin due to recent stroke. Pt was taking brilinta for this too but has recently stopped taking just for afyi. Please call back karl if needed/ need to reschedule surgery. Action Taken: Message routed to: Other: [facility] Travel Screening: Not Applicable documented in this encounter Plan of Treatment Not on file documented as of this encounter Visit Diagnoses Not on filedocumented in this encounter Care Teams Production Control Supervisor Relationship Specialty Start Date End Date Yousuf Bernard MD [facility] [address] [facility] [address] [place] [address] PCP - General Family Medicine 06/16/22 Abrahan Bower MD [address] [facility] [address] [place] [address] Assigned Surgical Provider 10/12/22 documented as of this encounter
--- OUTSIDE RECORDS SUMMARY | 2023-11-19 12:00 | XMS_ITS | Clinical Summary ---
Author Organization [facility] Address [address] [place] [address] Phone Care Team Providers Care Skein Yarn Drier Name Role Phone Youusf Bernard MD Primary Care Provider [phone] Allergies No known active allergies Medications Medication Sig Dispensed Refills Start Date End Date Status amLODIPine (NORVASC) 10 MG tablet Take 10 mg by mouth 1 (one) time each day Active atorvastatin (LIPITOR) 80 MG tablet Take 80 mg by mouth 1 (one) time each day Active HYDROcodone-acetami nophen (NORCO) 5-325 MG per tablet Take 0.5-1 tablets by mouth 1 (one) time each day if needed for moderate pain Active lisinopril (PRINIVIL) 40 MG tablet Take 20 mg by mouth in the morning and 20 mg in the evening. Active metFORMIN (GLUCOPHAGE) 1000 MG tablet Take 500 mg by mouth in the morning and 500 mg in the evening. Take with meals. Active senna (SENOKOT) 8.6 MG tablet Take 1 tablet by mouth 1 (one) time each day Active aspirin 81 MG chewable tablet CHEW AND SWALLOW 1 TABLET BY MOUTH DAILY 09/19/2022 Active Probiotic Product (PROBIOTIC DAILY PO) Take 1 tablet by mouth in the morning. Active glipiZIDE (GLUCOTROL XL) 10 MG 24 hr tablet Take 10 mg by mouth 1 (one) time each day 10/03/2022 Active allopurinol (ZYLOPRIM) 100 MG tablet Take 0.5 tablets (50 mg total) by mouth 1 (one) time each day 45 tablet 3 01/07/2023 01/07/2024 Active amitriptyline (ELAVIL) 10 MG tablet Take 10 mg by mouth 1 (one) time each day Active Semaglutide (OZEMPIC, 2 MG/DOSE, SC) Inject 2 mg under the skin Active Active Problems Problem Noted Date Diagnosed Date Acute renal failure syndrome 09/26/2022 Nephrolithiasis 09/26/2022 Encounters Date Type Department Care Team Description 10/22/2023 Refill [facility] [address] [place] [address] Jin Shipley MD 09/24/2023 Telephone [facility] [address] [place] [address] Samantha To RN 09/12/2023 9:30 AM CDT Office Visit [facility] [address] [place] [address] Meena Dover MD Nephrolithiasis (Primary Dx); Renal disorder due to type 2 diabetes mellitus <Diabetic nephropathy> ([facility]); Essential hypertension; Monoclonal gammopathy; 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] Sign Reading Time Taken Comments Blood Pressure 113/74 01/07/2023 3:22 PM BARREL ROLLER OPERATOR Pulse 80 01/07/2023 3:22 PM BARREL ROLLER OPERATOR Temperature 36.3 ??C (97.4 ??F) 01/07/2023 3:22 PM CS T Respiratory Rate 20 09/23/2022 2:15 PM CDT Oxygen Saturation 97% 01/07/2023 3:22 PM BARREL ROLLER OPERATOR Inhaled Oxygen Concentration - - Weight 111 kg (244 lb 3.2 oz) 01/07/2023 3:22 PM BARREL ROLLER OPERATOR Height 195.6 cm (6' 5) 01/07/2023 3:22 PM BARREL ROLLER OPERATOR Body Mass Index 28.96 01/07/2023 3:22 PM BARREL ROLLER OPERATOR Plan of Treatment Upcoming Encounters Date Type Department Care Team (Late st Contact Info) Description 12/08/2023 9:30 AM CDT Office Visit [facility] [address] [place], [place] [address] Meena Dover MD [address] [place], [place] [id number] Health Maintenance Due Date Last Done Comments Diabetic Foot Exam 08/05/1963 Ophthalmology Exam 08/05/1963 Pneumococcal PPSV23/PCV13 65 + Years / High and Highest Risk (2 of 3 - PCV) 03/07/2022 03/07/2021 COVID-19 Vaccine (4 - 2022-24 season) 2023 09/04/2022, 05/26/2020, 04/27/2020 Influenza Vaccine (#1) 2023 Care Teams Skein Yarn Drier Relationship Specialty Start Date End Date Yousuf Bernard MD [address] [place], [place] [address] PCP - General 02/14/23
--- OUTSIDE RECORDS SUMMARY | 2023-11-19 12:00 | XMS_ITS | Clinical Summary ---
Author Organization [facility] Address [address] [place] [address] Care Team Providers Care Director Of Special Services Name Role Phone Yousuf Bernard MD Primary Care Provider [phone] Abrahan Bower MD Unavailable Allergies No known active allergies Medications Medication [...] 10/11/2022 11:01 AM CDT Plan of Treatment Health Maintenance Due Date Last Done Comments ADVANCE CARE PLANNING 1955 ANNUAL REVIEW OF HM ORDERS 1955 CT COLONOGRAPHY 1953 FIT 1955 FLEX SIG 1955 sDNA (Cologuard) 1955 COLONOSCOPY 08/05/1963 COLORECTAL CANCER SCREENING 08/05/1963 HEPATITIS C SCREENING 08/05/1971 FALL RISK ASSESSMENT 2018 MEDICARE ANNUAL WELLNESS VISIT 2018 PHQ-2 (once per calendar year) 2023 BMP 09/19/2023 09/18/2022, 08/25, 09/16/2022, Additional history exists COVID-19 Vaccine ( season) 2023 09/04/2022, 09/04/2022, 11/21/2021, Additional history exists INFLUENZA VACCINE (#1) 2023 01/15/2023 LUNG CANCER SCREENING 02/12/2024 02/11/2023 LIPID 07/12/2025 07/12/2020 GLUCOSE 10/04/2025 10/04/2022, 09/24, 09/18/2022, Additional history exists RSV VACCINE (1 - 1-dose 75+ series) 2028 DTAP/TDAP/TD IMMUNIZATION (3 - Td or Tdap) 02/04/2033 02/04/2023, 01/10/1971 Pneumococcal Vaccine: 65+ Years Completed 11/08/2022, 03/07/2021 ZOSTER IMMUNIZATION Completed 01/17/2023, HPV IMMUNIZATION Aged Out No longer e ligible based on patient's age to complete this topic MENINGITIS IMMUNIZATION Aged Out No l onger eligible based on patient's age to complete this topic RSV MONOCLONAL ANTIBODY Aged Out No l onger eligible based on patient's age to complete this topic Medical Devices Implanted Type Area Bondactor Machine Operator Device Identifier Shelf Expiration Date Model / Serial / Lot Polaris Ultra [id number] Implanted:Qty : 1 on 10/04/2022 by Arbahan Bower MD at [facility] Right: [employer] [place] [id number] 08/01/2025 [id number] / / [id number] Polaris Ultra 5f X 28cm Implanted:Qty : 1 on 10/04/2022 by Abrahan Bower MD at [facility] Left: [employer] [place] [id number] 08/01/2025 [id number] 40 / / [id number] Explanted Type Area Bondactor Machine Operator Device Identifier Shelf Expiration Date Model / Serial / Lot Polaris Ultra, 5f X28cm Implanted:Qty: 1 on 09/16/2022 by Abrahan Bower MD at [facility] Explanted:Qty: 1 on 10/04/2022 by Abrahan Bower MD at [facility] Left: [employer] 05/22/2025 [id number] / / [id number] Polaris Ultra, 5f X28cm Implanted:Qty: 1 on 09/16/2022 by Abrahan Bower MD at [facility] Explanted:Qty: 1 on 10/04/2022 by Abrahan Bower MD at [facility] Right: [employer] 05/22/2025 [id number] / / [id number] Procedures Procedure Name Priority Date/Time Associated Diagnosis [...] Glucose by meter (10/04/2022 10:23 AM CDT) Pathologist [facility] GLUCOSE BY METER POCT 174(H) 70 - 99 mg/dL 10/04/2022 10:29 AM CDT [facility] POC Blood, Capillary BLOOD SPECIMEN / Unknown 10/04/2022 10:23 AM CDT 10/04/2022 10:29 AM CDT Abrahan Bower MD LAB - BEAKER PO CT [facility] POC [facility] Acute Care Lab [address] Lab (1st floor, no room number) [place] [address], [facility] [phone] * (ABNORMAL) Basic metabolic panel (09/18/2022 12:33 PM CDT) Sodium 139 136 - 145 mmol/L 09/18/2022 [...] Shipley MD LAB - BLOOD ORDERA BLES [facility] Acute Care Lab [address] Lab (1st floor, no room number) [place] [address], [facility] [phone] * Lipid panel (07/12/2020 9:47 AM CDT) Cholesterol 163 <200 mg/dL 07/12/2020 11:10 AM CDT [facility] Triglycerides 126 <150 mg/dL 07/12/2020 11:05 AM CDT [facility] HDL Cholesterol 42 >39 mg/dL 11:05 AM CDT [facility] LDL Cholesterol Calculated 96 <100 mg/dL 07/12/2020 11:10 AM CDT [facility] Comment:Desirable: <100 mg/d l Non HDL Cholesterol 121 <130 mg/dL 07/12/2020 11:10 AM CDT [facility] Blood 07/12/2020 9:47 AM CDT 07/12/2020 10:33 AM CDT Yousuf Bernard MD LAB - BLOOD ORDERABL ES Performing Organization Address City/[facility]/ZIP Co de Phone Number [facility] [address] [place] [address], [facility] [phone] from Last 3 Months or Most Recently Relevant to Health Maintenance Advance Directives For more information, please contact: [phone] * Full Code (Latest Code Status on File) Date Activated Date Inactivated Comments 09/16/2022 2:18 AM 09/17/2022 2:28 PM All basic an d advanced life-sustaining interventions are performed as appropriate Question Answer Comments Code status determined by: Discussion with laurene nt/ legal decision maker Care Teams Director Of Special Services Relationship Specialty Start Date End Date Yousuf Bernard MD [facility] [address] [facility] [address] [place], [place] [address] PCP - General Family Medicine 06/16/22 Abrahan Bower MD [address] [facility] [address] [place] [address] Assigned Surgical Provider 10/12/22
--- OUTSIDE RECORDS SUMMARY | 2023-11-19 12:00 | XMS_ITS | Encounter Summary ---
Author Organization [place] Address [address] [place] [address]. [place] [address] Care Team Providers Care Story Writer Name Role Phone Yousuf Bernard MD Primary Care Provider [phone] Abrahan Bower MD Unavailable [phone] Encounter Details Date Type Department Care Team (Late st Contact Info) Description 09/25/[address] [facility] [address] [place] [address] Hina Lujan Social History Tobacco Use Types Packs/Day Years [...] suspected to have Coronavirus/COVID-19? No / Unsure 09/26/2022 3:16 PM CDT documented as of this encounter Plan of Treatment Not on file documented as of this encounter Visit Diagnoses Not on filedocumented in this encounter Care Teams Story Writer Relationship Specialty Start Date End Date Yousuf Bernard MD [facility] [address] [facility] [address] [place] [address] PCP - General Family Medicine 4/23/23 Abrahan Bower MD [address] [place] [address] [place] [address] Assigned Surgical Provider 10/12/22 documented as of this encounter
--- OUTSIDE RECORDS SUMMARY | 2023-11-19 12:00 | XMS_ITS | Encounter Summary ---
Author Organization [facility] Address [address] [address] Care Team Providers Care Corporate Travel Expert Name Role Phone Clinician, Not Found MD Primary Care Provider Un available Reason for Visit * Reason Comments Progress Report OT Progress 10/01/23 Encounter Details Date Type Department Care Team (Late st Contact Info) Description 10/06/2023 Telephone Physiatry/Physical Medicine at [facility] [address] [facility] [place], [place] [phone] Han Bradley MD [address] [place], [place] [phone] Progress Report (OT Progress 10/01/23) Social History Tobacco Use Types Packs/Day Years [...] encounter Nursing Notes * Roseann Sands - 10/30/2023 2:29 PM CDT Received from [place] to do bin. [facility] [phone]. Confirmation received. Form sent to scanning. Thanks. Roseann Sands 10/30/2023, 2:29 PM * Machelle Irene CMA - 10/30/2023 8:43 AM CDT Provider has signed the form/document or completed request below. Please fax or send as requested. Placed in [place] to do. Machelle Ascencio CMA ([facility]), 10/30/2023 8:43 AM * Roseann Sands - 10/28/2023 10:20 AM CDT Received a fax from [place]. 3rd request for this to be completed. Fax is a duplicate, being deleted. Thanks. Roseann Sands 10/28/2023, 10:20 AM * Melecio Rahman - 10/10/2023 1:29 PM CDT Received a fax from [place] 2nd request for this to be completed. Fax is a duplicate, being deleted. Thanks. Melecio Rahman 10/10/2023, 1:30 PM * Machelle Irene CMA - 10/06/2023 3:36 PM CDT Provider is working at the hospital. Will review and sign forms, if appropriate, when back in clinic. Machelle Ascencio CMA ([facility]), 10/06/2023 3:36 PM * Melecio Rahman - 10/06/2023 10:24 AM CDT Received a fax from [facility]. OT daily note 10/01/23 Requesting provider signature. Fax can be found in provider right fax folder. Thanks. Melecio Rahman 10/06/2023, 10:24 AM documented in this encounter Plan of Treatment Not on file documented as of this encounter Visit Diagnoses Not on filedocumented in this encounter Care Teams Corporate Travel Expert Relationship Specialty Start Date End Date Clinician, Not Found, [place] [address] PCP - General 12/11/20 documented as of this encounter
[2023-11-19 12:01] LABS: C Reactive Protein* < 0.5 mg/dL (0.5-1.0)
--- OUTSIDE RECORDS SUMMARY | 2023-11-19 12:01 | XMS_ITS | Patient Health Record ---
Author Organization [facility] Address [address] [place], [place] [address] Care Team Providers Care Employment Legal Assistant Name Role Phone Maria E Valdez Primary Care Provider Allergies No Known Allergies Reason For Referral No Information Medications Medication SIG (Take, Route, Frequency, Duration) Notes Start Date End Date Status One Touch Delica Lancets as directed twi ce daily for 30 days 12/08/2019 Active Gabapentin 300 MG 1 capsule Orally Once a day 02/25 Active glipiZIDE ER 10 MG TAKE 2 TABLETS BY MO UTH EVERY MORNING WITH BREAKFAST Orally Once a day for 90 days Active Accu-Chek SmartView - TEST TWICE A DAY for 50 Active metFORMIN HCl 1000 MG TAKE 1 TABLET BY M OUTH TWICE DAILY WITH MEALS Orally 2 x day for 90 days Activ e cloNIDine HCl 0.1 MG 1 tablet Orally 2 x day for 30 day(s) 06/23/2020 Active Lisinopril 30 MG 1 tablet Orally Once a day for 90 days 06/06/2020 Active Januvia 25 MG TAKE 1 TABLET BY PAU EVERY DAY for 90 Active Social History Tobacco Use: Social History Observation Description Date Details (start date - stop date) Current Smoker NA - NA Smoking Question Answer Notes Status: Current Smoker Tobacco Intervention: Question Answer Notes Patient counseled on the dangers of tobacco use and urged to quit: 06/06/2020 Problems Problem Type SNOMED Code ICD Code Onset Dates Problem Status W/U Status Risk Notes Problem 401697083 Tobacco abuse (Z72.0) Active confirmed Problem 811391799 Low back pain (M54.5) Active confirmed Problem 46484932 Essential hypertension (I10) Active confirmed Problem 203840236 Diabetes mellitu s type 2 in nonobese (E11.9) Active confirmed Problem 120443353 FH: stroke (Z82.3) Active confirmed Problem 55476877 Diabetic 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 associated with type 2 diabetes mellitus (E11.42) Active confirmed Plan Of Treatment Pending Test Test Name Order Date EKG 10/07/2018 URINALYSIS - UA IN HOUSE 05/18/2018 Insurance Providers Payer Name Payer Address Payer Phone Subscriber Number Group Number Insured Name Patient Relationship to Insured Coverage Start Date Coverage End Date [facility] [address] [address] [place] [address] [id number] Chato Olivo Self - patient is the insured Medical (General) History Medical History History ICD Code Diabetes Hypertension Tobacco abuse Z72.0 Tobacco abuse Z82.3 FH: stroke E11.42 Diabetic 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 associated with type 2 diabetes mellitus M54.5 Low back pain Surgical History Surgery Date(Month/Year) Right total hip replacement 10/2019
--- OUTSIDE RECORDS SUMMARY | 2023-11-19 12:01 | XMS_ITS | Encounter Summary ---
Author Organization [facility] Address [address], [place] [address] Phone Care Team Providers Care Wad Compressor Operator Adjuster Name Role Phone Yousuf Bernard MD Primary Care Provider [phone] Encounter Details Date Type Department Care Team (Latest Contact Info) Description 09/12/2023 9:30 AM CDT Office Visit [facility] [address] [place] [address] Meena Dover MD [address] [place], [place] [id number] Nephrolithiasis (Primary Dx); Renal disorder due to type 2 diabetes mellitus <Diabetic nephropathy> ([facility]); Essential hypertension; Monoclonal gammopathy; 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; Vitamin D deficiency, not otherwise specified; 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[facility]); Uric acid renal calculus; Stage 3b chronic kidney disease ([facility]) Social History Tobacco Use Types Packs/Day Years Used Date Smoking Tobacco: Every Day Cigarettes Smokeless Tobacco: Never Alcohol Use Standard Drinks/Week Comments Yes 0 (1 standard drink = 0.6 oz pur e alcohol) Occasional Sex and Gender Information Value Date Recorded Sex Assigned at Not on file Gender Identity Not on file Sexual Orientation Not on file documented as of this encounter Progress Notes * Meena Dover MD - 09/12/2023 9:30 AM CDT [facility] Date of : 1955 Date of Service: 09/12/23 Primary care provider: Yousuf Bernard MD ASSESSMENT AND RECOMMENDATIONS: Nephrolithiasis Uric acid stones History of 4-5 stones in his lifetime. Most severe was in Sep 2022, had obstruction requiring lithotripsy. This was a uric acid stone. Had 24h urine collection, showing high uric acid supersaturation, low urine pH. Allopurinol 50 mg started 12/2022. Will repeat litholink to ensure improvement in risk factors and see if further optimization possible. He does not drink enough fluids, encouraged increased intake for prevention. - repeat litholink - uric acid CKD 3b Abnormal Cr since at least 2018, likely before but no records. Cr baseline 1.5- 1.7 for years. No recent UACR or UA. Does have longstanding HTN And DM2. Likely CKD due to HTN, DM2, and small vessel ischemia. Will get basic labs. - labs sent to [facility] DM2 Dx in 2011, possibly before. Poorly controlled. Most recent A1c 9.5 (09/10/23). Currently on metformin 500 mg BID (recently reduced from 1000 mg BID), ozempic, and glipizide. Has neuropathy, unclear if retinopathy present. Anemia screening Most recent Hgb 12.9 (09/10/23). No indication for iron or FOREST. Monoclonal IgG kappa Noted on SPEP/KAILASH 06/2022, stable. Snelling:lambda normal 1.21. HTN Currently on amlodipine 10 mg daily, lisinopril 20 mg BID. BP well controlled 108/72 on recent clinic visit. No changes needed. CKD MBD Vit D deficiency Last vit D checked 05/2023, was 39.3. No changes needed. Will check PTH. F/u in 6 months. Patient would like to establish nephrology care closer to home, already has referral to [facility] in [facility]. Discussed getting appt scheduled for future because sometimes can take awhile to get an appointment. We'll continue seeing him until he's established with [facility]. Reviewed notes from Dr. Shipley (nephrology), Dr. [facility] ([facility]), Mary Mclean NP (pain clinic). Today's visit was completed via telephone. In total I spent 62 minutes on today's visit. REASON FOR VISIT: CKD and nephrolithiasis follow up HISTORY OF PRESENT ILLNESS: Chat[facility] He is a 68 y.o. male with PMH of CKD 3b, nephrolithiasis, lung cancer, DM2, HTN, CVApresenting for follow up. He last saw Dr. Shipley in Dec 2022. Since then he's been doing relatively ok. Has some aches and pains, but otherwise no complaints. No flank pain. No hematuria. No further stones passed in interim. No hematuria. Doesn't drink enough water, only 24-48 oz a day, discussed that he should double this. He started allopurinol at last visit, tolerated it well. No urinary symptoms, SOB, edema, or other symptoms. His was also on the telephone and provided some history as well. PAST MEDICAL HISTORY: Past Medical History: Diagnosis Date Cerebral artery occlusion, unspecified, with cerebral infarction ([facility]) Depressive disorder Diabetes mellitus without mention of complication, type II or unspecified type, not stated as uncontrolled ([facility]) Essential hypertension Nephrolithiasis Other and unspecified hyperlipidemia PAST SURGICAL HISTORY: Past Surgical History: Procedure Laterality Date JOINT REPLACEMENT VASECTOMY MEDICATIONS: Current Outpatient Medications: allopurinol (ZYLOPRIM) 100 MG tablet, Take 0.5 tablets (50 mg total) by mouth 1 (one) time each day, Disp: 45 tablet, Rfl: 3 amLODIPine (NORVASC) 10 MG tablet, Take 10 mg by mouth 1 (one) time each day, Disp: , Rfl: aspirin 81 MG chewable tablet, CHEW AND SWALLOW 1 TABLET BY MOUTH DAILY, Disp: , Rfl: atorvastatin (LIPITOR) 80 MG tablet, Take 80 mg by mouth 1 (one) time each day, Disp: , Rfl: glipiZIDE (GLUCOTROL XL) 10 MG 24 hr tablet, Take 10 mg by mouth 1 (one) time each day, Disp: , Rfl: HYDROcodone-acetaminophen (NORCO) 5-325 MG per tablet, Take 0.5-1 tablets by mouth 1 (one) time each day if needed for moderate pain, Disp: , Rfl: lisinopril (PRINIVIL) 40 MG tablet, Take 40 mg by mouth 1 (one) time each day, Disp: , Rfl: metFORMIN (GLUCOPHAGE) 1000 MG tablet, Take 1,000 mg by mouth in the morning and 1,000 mg in the evening. Take with meals., Disp: , Rfl: Probiotic Product (PROBIOTIC DAILY PO), Take 1 tablet by mouth in the morning., Disp: , Rfl: senna (SENOKOT) 8.6 MG tablet, Take 1 tablet by mouth 1 (one) time each day, Disp: , Rfl: SITagliptin (JANUVIA) 25 MG tablet, Take 25 mg by mouth 1 (one) time each day, Disp: , Rfl: sodium bicarbonate 650 MG tablet, Take 650 mg by mouth in the morning and 650 mg in the evening dom190 mg before bedtime. For 14 days ., Disp: , Rfl: ALLERGIES: No Known Allergies REVIEW OF SYSTEMS: A comprehensive review of systems was performed and found to be negative except as described here or above. SOCIAL HISTORY: Social History Social History Narrative Not on file FAMILY MEDICAL HISTORY: Family History Problem Relation Age of Onset Stroke Mother Hypertension Father Stroke Father No Family hx of kidney dis. PHYSICAL EXAM: Visit Vitals Smoking Status Every Day No vitals or exam performed due to telephone visit. LABS: Historical labs were reviewed with the patient. Available imaging studies were reviewed. Meena Dover MD [facility] [phone] documented in this encounter Plan of Treatment Upcoming Encounters Date Type Department Care Team (Late st Contact Info) Description 12/08/2023 9:30 AM CDT Office Visit [facility] [address] [place] [id number] Meena Dover MD [address] [place] [address] [place] [id number] documented as of this encounter Visit Diagnoses Diagnosis Nephrolithiasis- Primary Renal disorder due to type 2 diabetes mellitus <Diabetic nephropathy> ([facility]) Essential hypertension Monoclonal gammopathy 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
[2023-11-19 12:09] LABS: NT Pro B Type NatriureticPept* 78 pg/mL; Troponin I* < 0.01 ng/mL (0.01-0.04)
--- NOTE | 2023-11-19 12:46 | PM.IMHP1 ---
Hospitalist- H&P: HPI History of Present Illness Date Seen: 11/19/23 Chief complaint: Fall, dizziness, hx of stroke Narrative: Chato He is a 68 year old male who presented to the hospital with right-sided weakness. Woke up with symptoms around 9:30am. 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 No recent illness. Notes some mild headache on admission, no other concerns. ER course and findings: - no acute findings on noncontrast head CT - CTA of head and neck reveals no high-grade stenosis or filling defects; 50% stenosis at the origin of bilateral internal carotid arteries, 75% stenosis at origin of bilateral vertebral arteries - no acute abnormalities on EKG, negative troponin, labs baseline - seen by Dr. Stevens of Stroke Neurology, recommends admission for monitoring, labs, MRI/TTE Histories updated below. PCP is Dr. Dorinda Washington at the [facility]. Review of Systems Status of ROS: Reports: 10 or more systems reviewed and unremarkable except as noted in History and below Narrative: - no recent fevers or illness - no CP or dyspnea - recently saw Dr. Washington (preop for upcoming total shoulder) [facility] Medical History (Updated 11/19/23 @ 15:59 by Zenobia Mccartney MD) Tobacco use ?Z72.0 - Tobacco use (ICD-10) Peripheral neuropathy ?G62.9 - Polyneuropathy, unspecified (ICD-10) Essential hypertension ?I10 - Essential (primary) hypertension (ICD-10) Abdominal aneurysm ?I71.40 - Abdominal aortic aneurysm, without rupture, unspecified (ICD-10) Squamous cell carcinoma of lung, stage I ?C34.90 - Malignant neoplasm of unspecified part of unspecified bronchus or lung (ICD-10) CKD stage 3b, GFR 30-44 ml/min ?N18.32 - Chronic kidney disease, stage 3b (ICD-10) Non-insulin dependent diabetes mellitus Surgical History (Updated 11/19/23 @ 15:40 by Zenobia Mccartney MD) H/O total hip arthroplasty ?Z96.649 - Presence of unspecified artificial hip joint (ICD-10) S/P bronchoscopy with biopsy ?Z98.890 - Other specified postprocedural states (ICD-10) Social History (Updated 11/19/23 @ 16:01 by Zenobia Mccartney MD) Narrative: Delaney would be medical decision maker if needed. Requests DNR/DNI status. Retired, smokes 15-20 cigarettes/day. No concerning ETOH use. What is your current living situation?: I presently have a place to live Problems where you live: no known problems Problems where you live details: none In the past 12 months, utilities in danger of being shut off: no In past 12 months, lack of transportation kept you from medical appts, meetings, work, or getting things needed for daily living: no In the past 12 mos, have been you worried that your food would run out before you had money to buy more?: never true In the past 12 mos, the food you bought just didn't last and you didn't have money to buy more?: never true Highest level of school completed/degree received: high school graduate Smoking Status: Current every day smoker What tobacco products do you use: cigarettes Smoking packs per day: 1 Smoking cigarettes per day: 20.0 Years smoked: 50 Smoking pack-years: 50.00 Do you use any of these nicotine containing products: None Second hand tobacco smoke exposure: Yes How often do you have a drink containing alcohol: 2-4 times a month Alcohol type: hard liquor How many standard drinks containing alcohol do you have on a typical day: 1 or 2 How often do you have six or more drinks on one occasion: Never AUDIT-C Alcohol total score: 2 Non-prescribed substance use: denies use Caffeine: Yes (2 cups) How often does anyone, including family, friends and others, physically hurt you: never How often does anyone, including family, friends and others, insult or talk down to you: never How often does anyone, including family, friends and others, threaten you with harm: never How often does anyone, including family, friends and others, scream or curse at you: never service: No Meds Home Medications and Allergies Home Medications ?Medication ?Instructions ?Recorded ?Confirmed ?Type allopurinol 100 mg tablet 50 mg PO DAILY 11/19/23 11/19/23 History amitriptyline 10 mg tablet 10 mg PO HS 11/19/23 11/19/23 History amlodipine 10 mg tablet 10 mg PO DAILY 11/19/23 11/19/23 History aspirin 81 mg chewable tablet 81 mg PO DAILY 11/19/23 11/19/23 History atorvastatin 80 mg tablet 80 mg PO QPM 11/19/23 11/19/23 History glipizide 10 mg tablet, extended 20 mg PO DAILY 11/19/23 11/19/23 History release 24 hr hydrocodone 5 mg-acetaminophen 325 1 tab PO BID PRN pain 11/19/23 11/19/23 History mg tablet lisinopril 20 mg tablet 20 mg PO DAILY 11/19/23 11/19/23 History metformin 1,000 mg tablet 1,000 mg PO BID 11/19/23 11/19/23 History naloxone 4 mg/actuation nasal spray 1 spray intranasal .PRN PRN 11/19/23 11/19/23 History semaglutide 2 mg/dose (8 mg/3 mL) 2 mg subcut .WEEKLY 11/19/23 11/19/23 History subcutaneous pen injector (Ozempic) sennosides 8.6 mg-docusate sodium 2 tab-cap PO BID PRN 11/19/23 11/19/23 History 50 mg tablet (Stimulant Laxative Plus) Allergies Allergy/AdvReac Type Severity Reaction Status Date / Time No Known Drug Allergies Allergy Verified 11/19/23 11:24 Exam Narrative: Exam Narrative: GEN: Alert and oriented, sitting comfortably in bed HEENT: PERRL and EOMIs bilaterally, tongue protrudes midline CV: RRR, No concerning murmurs, no carotid bruits R: No wheezing, adequate air movement throughout Ext: wwp, no concerning edema Skin: No concerning skin lesions or rashes on exposed skin Neuro: DTR brisker at right patella, + right pronator drift. 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 No resting tremor Psych: Appropriate Const: Vital Signs, click to edit/add: Vital Signs - 24 hr 11/19/23 11:09 11/19/23 11:10 11/19/23 11:12 Temperature Pulse Rate 82 82 Pulse Rate [Right Pulse Oximeter] Respiratory Rate 12 Blood Pressure 153/88 H Blood Pressure [Ri ght Upper Arm] Pulse Oximetry 95 97 97 Oxygen Delivery Me thod 11/19/23 11:13 11/19/23 11:13 11/19/23 11:15 Temperature 97.3 F L Pulse Rate 81 89 Pulse Rate [Right Pulse Oximeter] 81 Respiratory Rate 18 Blood Pressure Blood Pressure [Ri ght Upper Arm] 153/88 H Pulse Oximetry 95 97 96 [facility] 11/19/23 11:17 11/19/23 11:18 11/19/23 11:31 Temperature Pulse Rate 87 83 Pulse Rate [Right Pulse Oximeter] Respiratory Rate 12 Blood Pressure 163/89 H 142/104 H Blood Pressure [Ri ght Upper Arm] Pulse Oximetry 96 97 [facility] 11/19/23 11:33 11/19/23 11:45 11/19/23 11:46 Temperature Pulse Rate 84 75 82 Pulse Rate [Right Pulse Oximeter] Respiratory Rate Blood Pressure 147/98 H Blood Pressure [Ri ght Upper Arm] Pulse Oximetry 95 98 98 [facility] 11/19/23 11:46 11/19/23 11:47 11/19/23 12:01 Temperature Pulse Rate 82 76 Pulse Rate [Right Pulse Oximeter] Respiratory Rate Blood Pressure 147/98 H 141/97 H Blood Pressure [Ri ght Upper Arm] Pulse Oximetry 98 98 [facility] 11/19/23 12:02 Temperature Pulse Rate 79 Pulse Rate [Right Pulse Oximeter] Respiratory Rate Blood Pressure Blood Pressure [Ri ght Upper Arm] Pulse Oximetry 96 Oxygen Delivery [facility] Hospitalist - H&P: Result Labs Labs: Short CBC 11/19/23 Range/Units 11:34 WBC 6.14 (4.50-11.00) K/uL Hgb 11.6 L (13.5-17.5) gm/dL Hct 34.2 L (37.0-53.0) % Plt Count 156 (140-440) K/uL BMP 11/19/23 11:34 Sodium 137 Potassium 4.2 Chloride 107 Carbon Dioxide 22 BUN 24 Creatinine 1.3 Glucose 153 H Calcium 9.3 Cardiac Enzymes 11/19/23 Range/Units 11:34 Troponin I < 0.01 L (0.01-0.04) ng/mL Liver Function 11/19/23 Range/Units 11:34 Total Bilirubin 0.5 (0.1-1.5) mg/dL Direct Bilirubin 0.1 (0.0-0.5) mg/dL AST 31 (12-35) U/L ALT 31 (4-50) U/L Alkaline Phosphatase 100 (40-150) U/L Albumin 4.1 (3.3-5.0) g/dL Assessment and Plan Assessment and plan (1) Right sided weakness: Problem comment: - concern for new CVA vs extension of previous - hold home BP medications, obtain MRI, TTE, labs - therapies ordered Status: Acute (2) Stroke: Problem comment: - L cerebral hemisphere (2022), mild R sided weakness as sequela - on 80mg Atorvastatin, 81mg ASA Status: Acute (3) Squamous cell carcinoma of lung, stage I: Problem comment: - diagnosed 07/17, [id number] Stage 1A2 - follows with [facility] in [place] Status: Acute (4) CKD stage 3b, GFR 30-44 ml/min: Problem comment: - baseline, avoid nephrotoxins Status: Acute (5) Non-insulin dependent diabetes mellitus: Problem comment: - A1C 9.5 08/2023 - Accuchecks Status: Acute (6) Peripheral neuropathy: Problem comment: - takes 1-2 Hydrocodone-Acetaminophen + Amitriptyline at HS Status: Acute (7) Tobacco use: Problem comment: - approximately 1ppd, prn nicotine replacement Status: Acute Plan - per above - updated at bedside, questions answered
[2023-11-19] MEDS: NICOTINE 14 mg PATCH 1 PATCH TRANSDERMA (16:09)
[2023-11-19] MEDS: ATORVASTATIN CALCIUM 40 MG TABLET 80 MG PO (17:57)
[2023-11-19] MEDS: HYDROCODONE-ACETAMIN 5-325 MG 1 TAB PO ×2 (18:57→22:07)
[2023-11-19] MEDS: ENOXAPARIN 30 MG/0.3ML INJ SUBCUT (20:29)
[2023-11-19] MEDS: SODIUM CHLORIDE 0.9 % (FLUSH) 10 ML SYRINGE 5 ML IVF (20:29)
[2023-11-19] MEDS: AMITRIPTYLINE HCL 10 MG TABLET PO (20:29)
[2023-11-19] MEDS: SENNOSIDES/DOCUSATE TABLET 2 TAB PO (20:38)
[2023-11-19] MEDS: allopurinoL 100 MG TABLET 50 MG PO ×2 (21:06→21:10)
[2023-11-19] MEDS: INSULIN ASPART 100 UNIT/ML SUBCUT (21:07)
--- NOTE | 2023-11-19 21:13 | P.IMHP_ITS ---
Hospitalist- H&P: HPI History of Present Illness Date Seen: 01/25/24 Chief complaint: Fall, dizziness, hx of stroke Narrative: Chato He is a 68 year old male [facility] Medical History (Updated 11/27/23 @ 00:00 by Background Lilian) Right sided weakness ?R53.1 - Weakness (ICD-10) Stroke ?I63.9 - Cerebral infarction, unspecified (ICD-10) Tobacco use ?Z72.0 - Tobacco use (ICD-10) Peripheral neuropathy ?G62.9 - Polyneuropathy, unspecified (ICD-10) Essential hypertension ?I10 - Essential (primary) hypertension (ICD-10) Abdominal aneurysm ?I71.40 - Abdominal aortic aneurysm, without rupture, unspecified (ICD-10) Squamous cell carcinoma of lung, stage I ?C34.90 - Malignant neoplasm of unspecified part of unspecified bronchus or lung (ICD-10) CKD stage 3b, GFR 30-44 ml/min ?N18.32 - Chronic kidney disease, stage 3b (ICD-10) Non-insulin dependent diabetes mellitus Surgical History (Updated 11/19/23 @ 15:40 by Zenobia Mccartney MD) H/O total hip arthroplasty ?Z96.649 - Presence of unspecified artificial hip joint (ICD-10) S/P bronchoscopy with biopsy ?Z98.890 - Other specified postprocedural states (ICD-10) Social History (Updated 11/19/23 @ 16:01 by Zenobia Mccartney MD) Narrative: Delaney would be medical decision maker if needed. Requests DNR/DNI status. Retired, smokes 15-20 cigarettes/day. No concerning ETOH use. What is your current living situation?: I presently have a place to live Problems where you live: no known problems Problems where you live details: none In the past 12 months, utilities in danger of being shut off: no In the past 12 mos, have been you worried that your food would run out before you had money to buy more?: never true In the past 12 mos, the food you bought just didn't last and you didn't have money to buy more?: never true Highest level of school completed/degree received: high school graduate Smoking Status: Current every day smoker What tobacco products do you use: cigarettes Smoking packs per day: 1 Smoking cigarettes per day: 20.0 Years smoked: 50 Smoking pack-years: 50.00 Do you use any of these nicotine containing products: None Second hand tobacco smoke exposure: Yes How often do you have a drink containing alcohol: 2-4 times a month Alcohol type: hard liquor How many standard drinks containing alcohol do you have on a typical day: 1 or 2 How often do you have six or more drinks on one occasion: Never AUDIT-C Alcohol total score: 2 Non-prescribed substance use: denies use Caffeine: Yes (2 cups) How often does anyone, including family, friends and others, physically hurt you : never How often does anyone, including family, friends and others, insult or talk down to you: never How often does anyone, including family, friends and others, threaten you with harm: never How often does anyone, including family, friends and others, scream or curse at you: never service: No Meds Home Medications and Allergies Home Medications ?Medication ?Instructions ?Recorded ?Confirmed ?Type allopurinol 100 mg tablet 50 mg PO DAILY 11/19/23 11/19/23 History amitriptyline 10 mg tablet 10 mg PO HS 11/19/23 11/19/23 History amlodipine 10 mg tablet 10 mg PO DAILY 11/19/23 11/19/23 History aspirin 81 mg chewable tablet 81 mg PO DAILY 11/19/23 11/19/23 History atorvastatin 80 mg tablet 80 mg PO QPM 11/19/23 11/19/23 History glipizide 10 mg tablet, extended 20 mg PO DAILY 11/19/23 11/19/23 History release 24 hr hydrocodone 5 mg-acetaminophen 325 1 tab PO BID PRN pain 11/19/23 11/19/23 History mg tablet lisinopril 20 mg tablet 20 mg PO DAILY 11/19/23 11/19/23 History metformin 1,000 mg tablet 1,000 mg PO BID 11/19/23 11/19/23 History naloxone 4 mg/actuation nasal spray 1 spray intranasal .PRN PRN 11/19/23 11/19/23 History semaglutide 2 mg/dose (8 mg/3 mL) 2 mg subcut .WEEKLY 11/19/23 11/19/23 History subcutaneous pen injector (Ozempic) sennosides 8.6 mg-docusate sodium 2 tab-cap PO BID PRN 11/19/23 11/19/23 History 50 mg tablet (Stimulant Laxative Plus) Allergies Allergy/AdvReac Type Severity Reaction Status Date / Time No Known Drug Allergies Allergy Verified 11/19/23 11:24 Exam Const: Vital Signs, click to edit/add: Vital Signs - 24 hr 11/19/23 11:09 11/19/23 11:10 11/19/23 11:12 Temperature Pulse Rate 82 82 Pulse Rate [Pulse Oximeter] Pulse Rate [Right Pulse Oximeter] Respiratory Rate 12 Blood Pressure 153/88 H Blood Pressure [Ri ght Arm] Blood Pressure [Ri ght Upper Arm] Pulse Oximetry 95 97 97 [facility] 11/19/23 11:13 11/19/23 11:13 11/19/23 11:15 Temperature 97.3 F L Pulse Rate 81 89 Pulse Rate [Pulse Oximeter] Pulse Rate [Right Pulse Oximeter] 81 Respiratory Rate 18 Blood Pressure Blood Pressure [Ri ght Arm] Blood Pressure [Ri ght Upper Arm] 153/88 H Pulse Oximetry 95 97 96 [facility] Room Air 11/19/23 11:17 11/19/23 11:18 11/19/23 11:31 Temperature Pulse Rate 87 83 Pulse Rate [Pulse Oximeter] Pulse Rate [Right Pulse Oximeter] Respiratory Rate 12 Blood Pressure 163/89 H 142/104 H Blood Pressure [Ri ght Arm] Blood Pressure [Ri ght Upper Arm] Pulse Oximetry 96 97 Oxygen Delivery [facility] 11/19/23 11:33 11/19/23 11:45 11/19/23 11:46 Temperature Pulse Rate 84 75 82 Pulse Rate [Pulse Oximeter] Pulse Rate [Right Pulse Oximeter] Respiratory Rate Blood Pressure 147/98 H Blood Pressure [Ri ght Arm] Blood Pressure [Ri ght Upper Arm] Pulse Oximetry 95 98 98 [facility] 11/19/23 11:46 11/19/23 11:47 11/19/23 12:01 Temperature Pulse Rate 82 76 Pulse Rate [Pulse Oximeter] Pulse Rate [Right Pulse Oximeter] Respiratory Rate Blood Pressure 147/98 H 141/97 H Blood Pressure [Ri ght Arm] Blood Pressure [Ri ght Upper Arm] Pulse Oximetry 98 98 Oxygen Delivery [facility] 11/19/23 12:02 11/19/23 12:48 11/19/23 16:17 Temperature 97.6 F 98.2 F Pulse Rate 79 Pulse Rate [Pulse Oximeter] 77 85 Pulse Rate [Right Pulse Oximeter] Respiratory Rate 18 18 Blood Pressure Blood Pressure [Ri ght Arm] 154/104 H 144/100 H Blood Pressure [Ri ght Upper Arm] Pulse Oximetry 96 97 96 Oxygen Delivery [facility] Room Air Room Air 11/19/23 17:22 Temperature Pulse Rate 73 Pulse Rate [Pulse Oximeter] Pulse Rate [Right Pulse Oximeter] Respiratory Rate Blood Pressure Blood Pressure [Ri ght Arm] Blood Pressure [Ri ght Upper Arm] Pulse Oximetry Oxygen Delivery [facility] Hospitalist - H&P: Result Labs Labs: Short CBC 11/19/23 Range/Units 11:34 WBC 6.14 (4.50-11.00) K/uL Hgb 11.6 L (13.5-17.5) gm/dL Hct 34.2 L (37.0-53.0) % Plt Count 156 (140-440) K/uL BMP 11/19/23 11:34 Sodium 137 Potassium 4.2 Chloride 107 Carbon Dioxide 22 BUN 24 Creatinine 1.3 Glucose 153 H Calcium 9.3 Cardiac Enzymes 11/19/23 Range/Units 11:34 Troponin I < 0.01 L (0.01-0.04) ng/mL Liver Function 11/19/23 Range/Units 11:34 Total Bilirubin 0.5 (0.1-1.5) mg/dL Direct Bilirubin 0.1 (0.0-0.5) mg/dL AST 31 (12-35) U/L ALT 31 (4-50) U/L Alkaline Phosphatase 100 (40-150) U/L Albumin 4.1 (3.3-5.0) g/dL
--- NOTE | 2023-11-20 00:45 | P.EN_ITS ---
Chart Event Note Chart Event Note: Called by Maria Elena Esposito MD (I think stroke neuro from [employer]) as I was driving home; updated read on CTA for Chato from earlier. Severe proximal left ICA stenosis, 70 percent by NASCET, due to ulcerated plaque, possibly with a small amount of adherent thrombus. She recommended heparin gtt protocol without bolus. I gave verbal order to Marlys for the same with stat INR/PT/APTT before beginning. Discuss with stroke neuro in the am. Will likely need warfarin and outpatient c onsult for CEA.
[2023-11-20 01:11] LABS: INR 1.01 (0.91-1.10); Prothrombin Time 13.9 Seconds
[2023-11-20 01:12] LABS: Partial Thromboplastin Time* 30 Seconds (23-33)
[2023-11-20] MEDS: HEPARIN 25,000 UNIT/500 ML BAG 30 UNIT IV (01:16)
[2023-11-20 02:29] VITALS: BP 130/87; PULSE 74; RESP 18; TEMP 36.6; O2SAT 92
--- NOTE | 2023-11-20 05:28 | PC.NURSE ---
Shift note: Pt has been in bed throughout the shift. Used urinal at bedside. Alert and oriented. Pt continue to have right-sided weakness. Heparin drip started at 0130 at the rate of 30ml/hr. PTT checked was 30. No bleeding tendency and any other complications related the heparin administration was observed. PTT set to recheck at 0730.
--- NOTE | 2023-11-20 06:16 | PC.NURSE ---
Received phone call from Maria Elena Esposito MD shortly after midnight regarding pts updated CT report. Systems Integration Engineer was able to connect Dr Esposito with Dr Peng via telephone. Systems Integration Engineer received verbal tele orders from [place], pt was started on Heparin drip.
[2023-11-20 06:32] LABS: Basophils Absolute Auto 0.07 K/uL (0.00-0.30); Basophils Percent Auto 1.1 % (0.0-3.0); Eosinophils Absolute Auto 0.33 K/uL (0.00-0.50); Hematocrit 32.6 % (37.0-53.0); Hemoglobin* 11.1 gm/dL (13.5-17.5); Immature Granulocytes Abs Auto 0.01 K/uL (0.00-0.30); Immature Granulocytes Pct Auto 0.2 %; Lymphocytes Absolute Auto 1.85 K/uL (0.90-2.90); Mean Corpuscular HGB Conc 34 gm/dL (32-36); Mean Corpuscular Hemoglobin 31 pg (26-34); Mean Corpuscular Volume 91 fL (80-100); Monocytes Percent Auto 8.9 % (0.0-11.0); Neutrophils Absolute Auto 3.75 K/uL (1.7-7.0); Neutrophils Percent Auto 56.8 % (42.0-72.0); Platelet Count* 152 K/uL (140-440); RDW Coefficient of Variation % 12.2 % (11.5-15.5)
[2023-11-20 06:50] LABS: Slide Review Reflex No
[2023-11-20 06:55] LABS: Albumin* 3.7 g/dL (3.3-5.0); Chloride* 109 mmol/L (96-114); Sodium* 138 mmol/L (135-149)
[2023-11-20 06:58] LABS: Anion Gap 6 mEq/L (7-15); Bilirubin Total* 0.5 mg/dL (0.1-1.5); Blood Urea Nitrogen* 25 mg/dL (7-30); Carbon Dioxide* 23 mmol/L (20-32); Cholesterol* 82 mg/dL (90-199); Creatinine* 1.5 mg/dL (0.5-1.5); Est. Creatinine Clearance* 57.75; Estimated Glomerular Filt Rate 50 ml/min; Total Protein* 6.1 g/dL (6.0-8.3)
[2023-11-20 06:59] LABS: Alanine Aminotransferase* 32 U/L (4-50); Alkaline Phosphatase* 89 U/L (40-150); Aspartate Amino Transferase* 32 U/L (12-35); Calcium* 9.3 mg/dL (8.4-10.6); Glucose* 119 mg/dL (60-115); HDL Cholesterol* 46 mg/dL (>=40); LDL Cholesterol Calculated 23 mg/dL (<100); Triglycerides* 67 mg/dL (40-149)
[2023-11-20 07:00] VITALS: BP 157/103; PULSE 82; PULSE 91; RESP 18; TEMP 36.9; O2SAT 96
[2023-11-20 07:02] LABS: Hemoglobin A1C* 8.5 % (0-5.6)
[2023-11-20 07:30] VITALS: PULSE 82; RESP 18
--- NOTE | 2023-11-20 08:00 | CRLHL7_ITS ---
For Patients: As a result of the Cures Act, medical imaging exams and procedure reports are released immediately into your electronic medical record. You may view this report before your referring provider. If you have questions, please contact your health care provider. Indication Cerebral vascular accident. TECHNIQUE: Multiplanar multisequence noncontrast MR images of the brain. COMPARISON: CT brain 11/19/2023. FINDINGS: Multiple small cortical based areas of diffusion restriction and FLAIR hyperintensity within the posterior left frontal lobe, medial parietal lobes, and left occipital lobe, compatible with acute to early subacute infarctions. Additional punctate acute to subacute infarctions within the left caudate nucleus and the adjacent left frontal white matter. Susceptibility in the infarct beds, most compatible with petechial hemorrhage. Mild diffuse cerebral volume loss. No midline shift or hydrocephalus. Multiple small chronic cortical/subcortical infarctions within the posterior left frontal and left parietal lobes associated with hemosiderin deposition. Chronic lacunar infarctions in the left mahajan radiata and left basal ganglia. Scattered FLAIR hyperintensities in the supratentorial white matter and pk, typical for mild chronic microvascular ischemic changes. The major arterial flow voids of the skullbase are preserved. The globes are symmetric. Mild paranasal sinus mucosal thickening. Minimal left mastoid fluid. IMPRESSION: 1. Multiple small acute to early subacute infarctions within the posterior cerebral hemispheres and left basal ganglia. 2. Multiple small chronic cortical/subcortical infarctions within the left frontal and left parietal lobes. 3. Mild chronic microvascular ischemic changes and diffuse cerebral volume loss. Dictated by Douglas Avilez MD @ 11/20/2023 8:31:17 AM (Electronically Signed)
[2023-11-20 08:04] LABS: Partial Thromboplastin Time* 99 Seconds (23-33)
[2023-11-20] MEDS: NICOTINE 14 mg PATCH 1 PATCH TRANSDERMA (09:14)
[2023-11-20] MEDS: SODIUM CHLORIDE 0.9 % (FLUSH) 10 ML SYRINGE 5 ML IVF (09:15)
[2023-11-20] MEDS: ASPIRIN 81 MG TAB.CHEW PO (09:15)
[2023-11-20] MEDS: glipiZIDE XL 5 MG TAB 20 MG PO (09:15)
[2023-11-20 10:23] VITALS: BMI 27.4
[2023-11-20 11:11] VITALS: BP 155/99; PULSE 92; RESP 18; TEMP 37.1; O2SAT 96
--- NOTE | 2023-11-20 12:05 | REH.OT ---
Orders received for OT/PT eval and treat. Patient transferring to a higher level of care prior to evaluations.
[2023-11-20] MEDS: INSULIN ASPART 100 UNIT/ML SUBCUT (13:13)
--- NOTE | 2023-11-20 13:59 | PM.IMPN1 ---
Progress Note: A&P Assessment and plan (1) Right sided weakness: Problem details: - concern for new CVA vs extension of previous - MRI: IMPRESSION: 1. Multiple small acute to early subacute infarctions within the posterior cerebral hemispheres and left basal ganglia. 2. Multiple small chronic cortical/subcortical infarctions within the left frontal and left parietal lobes. 3. Mild chronic microvascular ischemic changes and diffuse cerebral volume loss. Status: Acute (2) Stroke: Problem details: - L cerebral hemisphere (2022), mild R sided weakness as sequela; new CVA 11/19/23 - on 80mg Atorvastatin, 81mg ASA Status: Acute (3) Squamous cell carcinoma of lung, stage I: Problem details: - diagnosed 07/17, [id number] Stage 1A2 - follows with [facility] in [place] - last chest CT 11/12/23 Status: Acute (4) CKD stage 3b, GFR 30-44 ml/min: Problem details: - baseline, avoid nephrotoxins Status: Acute (5) Non-insulin dependent diabetes mellitus: Problem details: - A1C 9.5 08/2023 - Accuchecks Status: Acute (6) Peripheral neuropathy: Problem details: - takes 1-2 Hydrocodone-Acetaminophen + Amitriptyline at HS Status: Acute (7) Tobacco use: Problem details: - approximately 1ppd, prn nicotine replacement Status: Acute (8) Internal carotid artery stenosis: Problem details: - neck CTA 11/19/23: 1. Severe proximal left ICA stenosis, 70 percent by NASCET, due to ulcerated plaque, possibly with a small amount of adherent thrombus. 2. Moderate proximal ICA stenosis, 60 percent by NASCET, due to ulcerated plaque. Status: Acute Subjective Date Seen: 11/20/23 Interval history: Wean was admitted to the hospital yesterday for right-sided weakness. History of CVA in 2022; CVA risk factors include hyperlipidemia, nck-bdzaxet-xoxpcdzys DM2, smoking status, previous CVA. CTA of neck revealed left ICA stenosis (70% per NASCET) secondary to ulcerated plaque with a possible amount of adherent thrombus. Given that finding, heparin drip was started last night. This morning, MRI revealed new multiple infarctions within the posterior cerebral hemispheres in left basal ganglia. Given findings, reviewed imaging with [facility] (Dr. Haynes); recommend transfer to tertiary care center for further evaluation and consideration of intervention. Both teams felt that heparin could be discontinued prior to transfer. Chato was accepted by Dr. Giles of Hospital medicine at [facility]. Exam Narrative: Exam Narrative: GEN: Alert and oriented, nontoxic HEENT: PERRL and EOMIs bilaterally, no speech abnormalities CV: RRR, No concerning murmurs R: No tachypnea, no wheezing, LCTA Skin: No concerning skin lesions or rashes on exposed skin Neuro: DTR brisker at right patella, mild right pronator drift. 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 No resting tremor Psych: Appropriate Const: Vital Signs, click to edit/add: Vital Signs - 24 hr 11/19/23 16:17 11/19/23 17:22 11/19/23 19:30 Temperature 98.2 F 98.5 F Pulse Rate 73 Pulse Rate [Pulse Oximeter] 85 93 Respiratory Rate 18 18 Blood Pressure [Ri ght Arm] 144/100 H 144/95 H Pulse Oximetry 96 96 Oxygen Delivery Me thod Room Air Room Air 11/19/23 22:14 11/19/23 23:00 11/19/23 23:00 Temperature 97.7 F 98.3 F Pulse Rate Pulse Rate [Pulse Oximeter] 94 95 90 Respiratory Rate 18 18 18 Blood Pressure [Ri ght Arm] 147/96 H 126/96 H Pulse Oximetry 95 95 Oxygen Delivery Me thod Room Air Room Air 11/19/23 23:00 11/20/23 02:29 11/20/23 07:00 Temperature 98 F 98.5 F Pulse Rate 89 Pulse Rate [Pulse Oximeter] 74 82 Respiratory Rate 18 18 Blood Pressure [Ri ght Arm] 130/87 157/103 H Pulse Oximetry 92 96 Oxygen Delivery Me thod Room Air Room Air 11/20/23 07:00 11/20/23 07:30 11/20/23 11:11 Temperature 98.8 F Pulse Rate 91 Pulse Rate [Pulse Oximeter] 82 92 Respiratory Rate 18 18 Blood Pressure [Ri ght Arm] 155/99 H Pulse Oximetry 96 Oxygen Delivery Me thod Room Air Labs Labs: Laboratory Results - last 24 hr 11/20/23 11/20/23 11/20/23 00:54 06:06 07:13 WBC 6.60 RBC 3.60 L Hgb 11.1 L Hct 32.6 L MCV 91 MCH 31 MCHC 34 RDW Coeff of Maribel 12.2 Plt Count 152 Neut % (Auto) 56.8 Lymph % (Auto) 28.0 Stokes % (Auto) 8.9 Eos % (Auto) 5.0 Baso % (Auto) 1.1 Neut # (Auto) 3.75 Lymph # (Auto) 1.85 Stokes # (Auto) 0.60 Eos # (Auto) 0.33 Baso # (Auto) 0.07 Abs Immat Gran (auto) 0.01 Imm/Tot Granulo (auto) 0.2 INR 1.01 APTT 30 99 H Sodium 138 Potassium 4.0 Chloride 109 Carbon Dioxide 23 Anion Gap 6 L BUN 25 Creatinine 1.5 Estimated Creat Clear 57.75 Estimated GFR 50 Glucose 119 H Hemoglobin A1c 8.5 H Calcium 9.3 Total Bilirubin 0.5 AST 32 ALT 32 Alkaline Phosphatase 89 Total Protein 6.1 Albumin 3.7 Triglycerides 67 Cholesterol 82 L LDL Cholesterol, Calc 23 HDL Cholesterol 46
--- NOTE | 2023-11-20 14:35 | P.DS_ITS ---
Transfer Discharge Sum: Prov Provider Date Seen: 11/20/23 Date of admission: 11/20/23 09:02 Primary care physician: Dorinda Washington DO Admitting clinician: Zenobia Mccartney Attending physician on admission: Zenobia Mccartney Attending physician on discharge: Zenobia Mccartney Discharging clinician: Zenobia Mccartney Anticipated date of transfer: 11/20/23 Receiving physician/facility: [facility] DS: Diagnosis Discharge Diagnosis (1) Stroke: Status: Acute Problem details: - L cerebral hemisphere (2022), mild R sided weakness as sequela; new CVA 11/19/23 - on 80mg Atorvastatin, 81mg ASA (2) Internal carotid artery stenosis: Status: Acute Problem details: - neck CTA 11/19/23: 1. Severe proximal left ICA stenosis, 70 percent by NASCET, due to ulcerated plaque, possibly with a small amount of adherent thrombus. 2. Moderate proximal ICA stenosis, 60 percent by NASCET, due to ulcerated plaque. (3) Tobacco use: Status: Acute Problem details: - approximately 1ppd, prn nicotine replacement (4) Peripheral neuropathy: Status: Acute Problem details: - takes 1-2 Hydrocodone-Acetaminophen + Amitriptyline at HS (5) Right sided weakness: Status: Acute Problem details: - concern for new CVA vs extension of previous - MRI: IMPRESSION: 1. Multiple small acute to early subacute infarctions within the posterior cerebral hemispheres and left basal ganglia. 2. Multiple small chronic cortical/subcortical infarctions within the left frontal and left parietal lobes. 3. Mild chronic microvascular ischemic changes and diffuse cerebral volume loss. (6) Squamous cell carcinoma of lung, stage I: Status: Acute Problem details: - diagnosed 07/17, [id number] Stage 1A2 - follows with [facility] in [place] - last chest CT 11/12/23 (7) CKD stage 3b, GFR 30-44 ml/min: Status: Acute Problem details: - baseline, avoid nephrotoxins (8) Non-insulin dependent diabetes mellitus: Status: Acute Problem details: - A1C 9.5 08/2023 - Accuchecks Transfer Discharge Sum: Med Medications Active and Home Medications: Home Medications allopurinol 100 mg tablet 50 mg PO DAILY 11/19/23 [History Confirmed 11/19/23] amitriptyline 10 mg tablet 10 mg PO HS 11/19/23 [History Confirmed 11/19/23] amlodipine 10 mg tablet 10 mg PO DAILY 11/19/23 [History Confirmed 11/19/23] aspirin 81 mg chewable tablet 81 mg PO DAILY 11/19/23 [History Confirmed 11/19/23] atorvastatin 80 mg tablet 80 mg PO QPM 11/19/23 [History Confirmed 11/19/23] glipizide 10 mg tablet, extended release 24 hr 20 mg PO DAILY 11/19/23 [History Confirmed 11/19/23] hydrocodone 5 mg-acetaminophen 325 mg tablet 1 tab PO BID PRN pain 11/19/23 [History Confirmed 11/19/23] lisinopril 20 mg tablet 20 mg PO DAILY 11/19/23 [History Confirmed 11/19/23] metformin 1,000 mg tablet 1,000 mg PO BID 11/19/23 [History Confirmed 11/19/23] naloxone 4 mg/actuation nasal spray 1 spray intranasal .PRN PRN 11/19/23 [History Confirmed 11/19/23] semaglutide 2 mg/dose (8 mg/3 mL) subcutaneous pen injector (Ozempic) 2 mg subcut .WEEKLY 11/19/23 [History Confirmed 11/19/23] sennosides 8.6 mg-docusate sodium 50 mg tablet (Stimulant Laxative Plus) 2 tab- cap PO BID PRN 11/19/23 [History Confirmed 11/19/23] Active Medications Acetaminophen (Acetaminophen 325 Mg Tablet) 650 mg PO Q6H PRN Hydrocodone Bitart/Acetaminophen (Hydrocodone-Acetamin 5-325 Mg 1 Tab) 1 - 2 tab PO HS PRN PRN Reason: pain Last Admin: 11/19/23 22:07 Dose: 1 tab Allopurinol (Allopurinol 100 Mg Tablet) 50 mg PO HS GALLITO Last Admin: 11/19/23 21:10 Dose: 50 mg Amitriptyline HCl (Amitriptyline Hcl 10 Mg Tablet) 10 mg PO HS GALLITO Last Admin: 11/19/23 20:29 Dose: 10 mg Aspirin (Aspirin 81 Mg Tab.Chew) 81 mg PO DAILY G[facility] Last Admin: 11/20/23 09:15 Dose: 81 mg Atorvastatin Calcium (Atorvastatin Calcium 40 Mg Tablet) 80 mg PO QPM [facility] Last Admin: 11/19/23 17:57 Dose: 80 mg Glipizide (Glipizide Xl 5 Mg Tab) 20 mg PO DAILYWM [facility] Last Admin: 11/20/23 09:15 Dose: 20 mg Insulin Aspart (Insulin Aspart 100 Unit/Ml) 0 unit SUBCUT ACHS [facility]; Protocol Last Admin: 11/20/23 13:13 Dose: 2 unit Nicotine (Nicotine 14 Mg Patch) 1 patch TRANSDERMA Q24H [facility] Last Admin: 11/20/23 09:14 Dose: 1 patch Nicotine Polacrilex (Nicotine 2 Mg Lozenge) 2 mg BUCCAL Q1H PRN Nicotine Polacrilex (Nicotine 4 Mg Gum) 4 mg BUCCAL Q1H PRN Senna/Docusate Sodium (Sennosides/Docusate Tablet) 2 tab PO BID PRN Last Admin: 11/19/23 20:38 Dose: 2 tab Sodium Chloride (Sodium Chloride 0.9 % (Flush) 10 Ml Syringe) 5 ml IVF .FLUSH PRN Sodium Chloride (Sodium Chloride 0.9 % (Flush) 10 Ml Syringe) 5 ml IVF BID [facility] Last Admin: 11/20/23 09:15 Dose: 5 ml Transfer Discharge Sum: Hosp Hospital Course Hospital course: Chato He is a 68 year old who was admitted to the hospital yesterday for right-sided weakness. History of CVA in 2022; CVA risk factors include hyperlipidemia, xel-kztqqlj-fxsksvgfq DM2, smoking status, previous CVA. CTA of neck revealed left ICA stenosis (70% per NASCET) secondary to ulcerated plaque with a possible amount of adherent thrombus. Given that finding, heparin drip was started last night. This morning, MRI revealed new multiple infarctions within the posterior cerebral hemispheres in left basal ganglia. Given findings, reviewed imaging with [facility] (Dr. Haynes); recommend transfer to tertiary care center for further evaluation and consideration of intervention. Both teams felt that heparin could be discontinued prior to transfer. Chato was accepted by Dr. Giles of Hospital medicine at [facility] [place]. Time Spent with Patient Time attestation: Total time spent providing and/or coordinating transfer services: Total time spent: Greater than 30 minutes Exam Narrative: Exam Narrative: GEN: Alert and oriented, nontoxic HEENT: PERRL and EOMIs bilaterally, tongue protrudes midline CV: RRR, No concerning murmurs R: No wheezing, adequate air movement throughout Ext: wwp, no concerning edema Skin: No concerning skin lesions or rashes on exposed skin Neuro: DTR brisker at right patella, + right pronator drift. Notably weaker right-sided clarification operator strength and intrinsic musculature of RUE. No resting tremor. Gait not observed Psych: Appropriate Const: Vital Signs, click to edit/add: Vital Signs - 24 hr 11/19/23 16:17 11/19/23 17:22 11/19/23 19:30 Temperature 98.2 F 98.5 F Pulse Rate 73 Pulse Rate [Pulse Oximeter] 85 93 Respiratory Rate 18 18 Blood Pressure [Ri ght Arm] 144/100 H 144/95 H Pulse Oximetry 96 96 Oxygen Delivery Me thod Room Air Room Air 11/19/23 22:14 11/19/23 23:00 11/19/23 23:00 Temperature 97.7 F 98.3 F Pulse Rate Pulse Rate [Pulse Oximeter] 94 95 90 Respiratory Rate 18 18 18 Blood Pressure [Ri ght Arm] 147/96 H 126/96 H Pulse Oximetry 95 95 Oxygen Delivery Me thod Room Air Room Air 11/19/23 23:00 11/20/23 02:29 11/20/23 07:00 Temperature 98 F 98.5 F Pulse Rate 89 Pulse Rate [Pulse Oximeter] 74 82 Respiratory Rate 18 18 Blood Pressure [Ri ght Arm] 130/87 157/103 H Pulse Oximetry 92 96 Oxygen Delivery Me thod Room Air Room Air 11/20/23 07:00 11/20/23 07:30 11/20/23 11:11 Temperature 98.8 F Pulse Rate 91 Pulse Rate [Pulse Oximeter] 82 92 Respiratory Rate 18 18 Blood Pressure [Ri ght Arm] 155/99 H Pulse Oximetry 96 Oxygen Delivery Me thod Room Air Transfer Discharge Sum: Data Data Completed and Pending Completed studies during hospitalization: COMPARISON: CT brain 11/19/2023. FINDINGS: Multiple small cortical based areas of diffusion restriction and FLAIR hyperintensity within the posterior left frontal lobe, medial parietal lobes, and left occipital lobe, compatible with acute to early subacute infarctions. Additional punctate acute to subacute infarctions within the left caudate nucleus and the adjacent left frontal white matter. Susceptibility in the infarct beds, most compatible with petechial hemorrhage. Mild diffuse cerebral volume loss. No midline shift or hydrocephalus. Multiple small chronic cortical/subcortical infarctions within the posterior left frontal and left parietal lobes associated with hemosiderin deposition. Chronic lacunar infarctions in the left mahajan radiata and left basal ganglia. Scattered FLAIR hyperintensities in the supratentorial white matter and pk, typical for mild chronic microvascular ischemic changes. The major arterial flow voids of the skullbase are preserved. The globes are symmetric. Mild paranasal sinus mucosal thickening. Minimal left mastoid fluid. IMPRESSION: 1. Multiple small acute to early subacute infarctions within the posterior cerebral hemispheres and left basal ganglia. 2. Multiple small chronic cortical/subcortical infarctions within the left frontal and left parietal lobes. 3. Mild chronic microvascular ischemic changes and diffuse cerebral volume loss. Dictated by Douglas Avilez MD @ 11/20/2023 8:31:17 AM TECHNIQUE: CTA neck with contrast bolus tracking, 3D angiographic rendering using maximum intensity projection (MIP) and images permanently archived. FINDINGS: There is highly irregular ulcerated atherosclerotic plaque in the proximal internal carotid arteries bilaterally. On the left, there is a focal 70 percent stenosis by NASCET criteria. There may be a small amount of adherent thrombus. On the right, there is a moderate stenosis, approximately 60 percent by NASCET criteria. There are moderate to severe bilateral vertebral artery origin stenoses. The soft tissues of the neck are within normal limits. There is evidence of diffuse idiopathic skeletal hyperostosis in the cervical spine, which is in normal alignment. IMPRESSION: 1. Severe proximal left ICA stenosis, 70 percent by NASCET, due to ulcerated plaque, possibly with a small amount of adherent thrombus. 2. Moderate proximal ICA stenosis, 60 percent by NASCET, due to ulcerated plaque. Please note that all CT scans at this facility use dose modulation, iterative reconstruction, and/or weight-based dosing when appropriate to reduce radiation dose to as low as reasonably achievable. Dictated by Chris Ballard MD @ 11/19/2023 8:06:50 PM Discharge Plan Discharge Disposition: [facility] Date of Admission: 11/20/23 09:02 Attending Provider on Discharge: Zenobia Mccartney Primary Care Provider: Dorinda Washington Condition: Stable Discharge Orders: Transfer of Care to Other Hospital (ORDER); Ordered 11/20/23 Ordered By: Zenobia Mccartney Oxygen: No Urinary Catheter: No Services not available here: Vascular surgery, Stroke Neurology
[2023-11-20 15:00] VITALS: PULSE 85; PULSE 94; RESP 18
[2023-11-20 15:40] VITALS: BP 130/91; PULSE 85; RESP 18; TEMP 37.2; O2SAT 97
[2023-11-20] MEDS: HYDROCODONE-ACETAMIN 5-325 MG 1 TAB PO (18:24)
--- NOTE | 2023-11-20 19:47 | PC.NURSE ---
REPORT GIVEN TO RN AT [facility]. PATIENT'S BLOOD PRESSURE REMAINS ELEVATED AND MD AWARE. PATIENT TRANSFERRED TO [facility] VIA EMS.
== END 2023-11-20 19:05 | disposition short-term general hospital (02) | DRG 65 ==
LOC: ED 12:01 → MEDSURG 12:30
PROVIDERS: Family Medicine; Admitting Provider Family Medicine; Emergency Provider Family Medicine; PCP Family Medicine; Visit Provider Family Medicine
DX: I63.232 Cerebral infarction due to unspecified occlusion or stenosis of left carotid arteries (principal); C34.90 Malignant neoplasm of unspecified part of unspecified bronchus or lung; C34.92 Malignant neoplasm of unspecified part of left bronchus or lung; I69.351 Hemiplegia and hemiparesis following cerebral infarction affecting right dominant side; I63.032 Cerebral infarction due to thrombosis of left carotid artery; G62.9 Polyneuropathy, unspecified; E11.22 Type 2 diabetes mellitus with diabetic chronic kidney disease; E11.42 Type 2 diabetes mellitus with diabetic 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; I12.9 Hypertensive chronic kidney disease with stage 1 through stage 4 chronic kidney disease, or unspecified chronic kidney disease; N18.32 Chronic kidney disease, stage 3b; I71.40 Abdominal aortic aneurysm, without rupture, unspecified; Z79.84 Long term (current) use of oral hypoglycemic drugs; Z72.0 Tobacco use; Z79.85 Long-term (current) use of injectable non-insulin antidiabetic drugs
CPT/HCPCS: 36415; 70450; 70496; 70498; 70551; 80048; 80053; 80061; 80076; 82962; 83036; 83880; 84484; 85025; 85610; 85730; 86140; 92610; 93005; 93306; 94761; 99285; 99291; G0378; A9270; J1644; J1650; J7030; Q9967; S4990

== ENCOUNTER 2023-11-20 19:00 | Outpatient (CLI) | payer MEDICARE, BC, SELFPAY ==
--- OUTSIDE RECORDS SUMMARY | 2023-11-22 05:22 | XMS_ITS ---
Author Organization [facility] Address [address] [place] [address] Care Team Providers Care Wardrobe Supervisor Name Role Phone Unavailable Unavailable Unavailable Surgery Details Not on file Complications Check Surgery Details section. Procedure Estimated Blood Loss Check Surgery Details section. Procedure Findings Check Surgery Details section. Procedure Specimens Taken Check Surgery Details section.
--- OUTSIDE RECORDS SUMMARY | 2023-11-22 05:22 | XMS_ITS ---
Author Organization [facility] Address [address] [place] [address] Care Team Providers Care Crossbar Frame Wirer Name Role Phone Unavailable Primary Care Provider [...] Treated Prescribed Fraction Dose Prescribed Total Dose [id number] 08/20/2023 6 5 of 5 1,000 cGy 5,000 cG y Reference Point Last Treated On Elapsed Days Session Dose Total Dose [id number] 08/20/2023 6 1,000 cGy 5,000 cGy
--- OUTSIDE RECORDS SUMMARY | 2023-11-22 05:22 | XMS_ITS | Encounter Summary ---
Author Organization [facility] Address [address] [place] [address] Care Team Providers Care Lining Scrubber Name Role Phone Unavailable Primary Care Provider Unavailabl e Reason for Referral * Outpatient (Routine) - Authorized Specialty Diagnoses / Procedures Referred By Laila t Referred To Contact Radiation Oncology Jennifer Gaona P.A.-C., M.SKenyatta [address] [place] [address] Kev Hoffmann M.D. [address] [place] [phone] Referral ID Status Reason Start Date Expiration Date V isits Requested Visits Authorized [id number] Authorized 11/19/2023 05/20/2025 [address] chest prior at [facility] in [place]; need appointments at the end of January prior to patient's planned travel in early February * MRI/CAT/PET Scan (Routine) - Authorized Specialty Diagnoses / Procedures Referred By Contcarlos t Referred To Contact Radiology Diagnoses Malignant Neoplasm Of Lung Lower Lobe Or Bronchus Left (HCC) Procedures CT Chest without IV Contrast Jennifer Gaona P.A.-C., M.S. [address] [place] [address] [facility] Referral ID Status Reason Start Date Expiration Date V isits Requested Visits Authorized [id number] Authorized 11/19/2023 11/18/2024 1 1 Encounter Details Date Type Department Care Team (Late st Contact Info) Description 11/19/2023 Clinical Communication Department of Radiation Oncology in [place], [place] [address] [place] [phone] Jennifer Gaona P.A.-C., M.S. [address] [place] [address] Social History Tobacco Use Types Packs/Day Years Used Date Smoking Tobacco: Every Day Cigarettes 0.8 50.7 Started: 1975 Smokeless Tobacco: Never Alcohol Use Standard Drinks/Week Comments Yes 0 (1 standard drink = 0.6 oz pur e alcohol) 2 drinks/month [facility] Utilities Answer Date Recorded In the past 12 months has [employer], [employer], oil, or water [employer] threatened to shut off services in your [...] for the imaging to be done at [facility] in [place]. We will also order for a return [...]
--- OUTSIDE RECORDS SUMMARY | 2023-11-22 05:22 | XMS_ITS | Encounter Summary ---
Author Organization [facility] Address [address] [place] [address] Care Team Providers Care Veterans' Coordinator Name Role Phone Unavailable Primary Care Provider Unavailabl e Reason for Referral * Outpatient (Routine) - Authorized Specialty Diagnoses / Procedures Referred By Laila t Referred To Contact Radiation Oncology Kev Hoffmann M.D. [address] [place] [address] [facility] Region Referral ID Status Reason Start Date Expiration Date V isits Requested Visits Authorized [id number] Authorized 09/02/2023 03/03/2025 1 1 Scheduling Instructions JLL in 3 months; after CT * MRI/CAT/PET Scan (Routine) - Authorized Specialty Diagnoses / Procedures Referred By Contac t Referred To Contact Radiology Diagnoses Malignant Neoplasm Of Lung Lower Lobe Or Bronchus Left (HCC) Procedures CT Chest with IV Contrast Kev Hoffmann M.D. [address] [place] [address] [facility] Region Referral ID Status Reason Start Date Expiration Date V isits Requested Visits Authorized [id number] Authorized 09/02/2023 09/01/2024 1 1 * Radiation Therapy (Routine) - Authorized Specialty Diagnoses / Procedures Referred By Contac t Referred To Contact Diagnoses Malignant Neoplasm Of Lung Lower Lobe Or Bronchus Left (HCC) Procedures Management Visit Kev Hoffmann M.D. [address] [place] [address] [facility] Region Referral ID Status Reason Start Date Expiration Date V isits Requested Visits Authorized [id number] Authorized 07/30/2023 07/29/2024 10 10 Reason for Visit * Radiation Therapy (Routine) - Authorized Specialty Diagnoses / Procedures Referred By Contac t Referred To Contact Diagnoses Malignant Neoplasm Of Lung Lower Lobe Or Bronchus Left (HCC) Procedures Management Visit Kev Hoffmann M.D. [address] [place] [address] [facility] Region Referral ID Status Reason Start Date Expiration Date V isits Requested Visits Authorized [id number] Authorized 07/30/2023 07/29/2024 10 10 Encounter Details Date Type Department Care Team (Latest Contact Info) Description 08/19/2023 10:59 AM CDT - 09/02/2023 7:04 PM CDT Hospital Encounter Department of Radiation Oncology in [place], [place] [address] [place] [address] Kev Hoffmann M.D. [address] [place] [address] Malignant Neoplasm Of Lung Lower Lobe Or Bronchus Left (HCC) Social History Tobacco Use Types Packs/Day Years Used Date Smoking Tobacco: Every Day Cigarettes 0.8 50.7 Started: 1975 Smokeless Tobacco: Never Alcohol Use Standard Drinks/Week Comments Yes 0 (1 standard drink = 0.6 oz pur e alcohol) 2 drinks/month [facility] Utilities Answer Date Recorded In the past 12 months has [employer], gas, oil, or water [employer] threatened to shut off services in your [...] your living situation today? I have a [facility] place to live 07/28/2023 Sex and [...] 81 mg. 08/14/2022 blood sugar diagnostic strips (Cloud Lending[employer] Verio test strips) Dispense item covered by [...] Left (HCC) SUPERVISED BY: Kev Hoffmann M.D. ([id number]) HISTORY OF PRESENT ILLNESS Chato He is a 68 y.o. 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 Patient is receiving SBRT to left lower lung. Treatment Course: 1xLungLowrSBRT Plan ID Fractions Dose / Fraction (cGy) Dose Treated (cGy) Dose Planned (cGy) First Treatment Last Treatment Elapsed Days [id number] 1000 4000 5000 08/14/2023 08/19/2023 5 Course [...] 3 months. We will schedule CT at [facility]. Dr. Hoffmann will follow up with patient [...] a CT scan of the chest at [facility] in [place]. He can contact us in the interim with questions or concerns. He verbalized satisfaction with this plan. Signed by: Kev Hoffmann M.D. 09/02/2023 7:03 PM CDT [facility] [address] [place] [address] documented in this encounter Miscellaneous Notes * [...]
--- OUTSIDE RECORDS SUMMARY | 2023-11-22 05:22 | XMS_ITS | Clinical Summary ---
Author Organization [facility] Address [address] [place] [address] Care Team Providers Care Chin Strap Maker Name Role Phone Unavailable Primary Care Provider Unavailabl e Source Comments Patient records contain information from all sites at [facility]. For routine questions regarding patient records, call [phone] during business hours, M-F 8:00 AM - 5:00 PM Central Time. Record requests for emergency care only can be directed to [phone] at any time.[facility] Allergies No known active allergies Medications [...] Clinical Communication Department of Radiation Oncology in [place], [place] [address] [place] [phone] Jennifer Gaona P.A.-Claudio., M.S. 08/19/2023 10:59 AM CDT - 09/02/2023 7:04 PM CDT Hospital Encounter Department of Radiation Oncology in [address] [address] Kev Hoffmann M.D. Malignant Neoplasm Of Lung [...] 0.6 oz pur e alcohol) 2 drinks/month [facility] Utilities Answer Date Recorded In the past 12 months has [employer], [employer], oil, or water [employer] threatened to shut off services in your [...] your living situation today? I have a [facility] place to live 07/28/2023 Sex and [...] T Respiratory Rate 20 04/14/2011 6:10 PM SEWER BUILDER Oxygen Saturation - - Inhaled Oxygen Concentration [...] System IMG CT PROCEDURES Performing Organization Address City/[facility]/ZIP Co de Phone Number IIDE NA * HXZZORDERS (08/14/2011 2:46 PM CDT) HXHep C Ab-[place] Negative Negative POWERCHART Comment: Tlubip-ql-glbkci ratio is <1.00. Test Performed by: [place] [address] Ergonomics Consultant: Octavio Harris III, M.D. Blood 08/14/2011 2:46 PM CDT Maria E Gutierres P.A.-C. LAB HISTORICAL O RDERS Performing Organization Address [facility] Co de Phone Number POWERCHART * CT Abdomen without IV Contrast (07/27/2006 4:40 AM CDT) Anatomical Region Laterality Modality Abdomen N/A Computed Tomogra phy 07/27/2006 4:40 AM CDT Narrative 07/27/2006 4:40 AM CDT Originally Signed By Contributor_system, [facility]_HX_RAD_SYS INDICATION: ??Right abdominal back pain. CT [...] Edmonds - 07/31/2016 Originally Signed By Contributor_system, [facility]_HX_RAD_SYS INDICATION: Right abdominal back pain. CT [...]
--- OUTSIDE RECORDS SUMMARY | 2023-11-22 05:22 | XMS_ITS | Referral Summary ---
Author Organization [facility] Address [address] [place] [address] Care Team Providers Care Balance Wheel Motion Inspector Name Role Phone Unavailable Primary Care Provider Unavailabl e Source Comments Patient records contain information from all sites at [facility]. For routine questions regarding patient records, call [phone] during business hours, M-F 8:00 AM - 5:00 PM Central Time. Record requests for emergency care only can be directed to [phone] at any time.[facility] Encounters Date Type Department Care Team Description 11/19/2023 Clinical Communication Department of Radiation Oncology in [place], [place] [address] [place] [address] Jennifer Gaona PRosales.-C., M.S. 08/19/2023 10:59 AM CDT - 09/02/2023 7:04 PM CDT Hospital Encounter Department of Radiation Oncology in [address] [address] Kev Hoffmann M.D. Malignant Neoplasm Of Lung [...] oz pur e alcohol) 2 drinks/month [facility] Utilities Answer Date Recorded In the past 12 months has [employer], gas, oil, or water [employer] threatened to shut off services in your [...] your living situation today? I have a [facility] place to live 07/28/2023 Sex and [...] T Respiratory Rate 20 04/14/2011 6:10 PM COOK BOX FILLER Oxygen Saturation - - Inhaled Oxygen Concentration [...] System IMG CT PROCEDURES Performing Organization Address [facility] Co de Phone Number [facility] NA * HXZZORDERS (08/14/2011 2:46 PM CDT) HXHep C -[place] Negative Negative POWERCHART Comment: Ykennb-yl-aidjbt ratio is <1.00. Test Performed by: [place] [address] Bank President: Octavio Harris III, M.D. Blood 08/14/2011 2:46 PM CDT Maria E Gutierres P.A.-C. LAB HISTORICAL O RDERS Performing Organization Address [facility] de Phone Number POWERCHART * CT Abdomen without IV Contrast (07/27/2006 4:40 AM CDT) Anatomical Region Laterality Modality Abdomen N/A Computed Tomogra phy 07/27/2006 4:40 AM CDT Narrative 07/27/2006 4:40 AM CDT Originally Signed By Contributor_system, [facility]_HX_RAD_SYS INDICATION: ??Right abdominal back pain. CT [...] M.D. - 07/31/2016 Originally Signed By Contributor_system, [facility]_HX_RAD_SYS INDICATION: Right abdominal back pain. CT [...]
--- OUTSIDE RECORDS SUMMARY | 2023-11-22 05:22 | XMS_ITS | Encounter Summary ---
Author Organization [facility] Address [address] [place] [address] Care Team Providers Care Rn Wellness Name Role Phone Unavailable Primary Care Provider Unavailabl e Encounter Details Date Type Department Care Team (Late st Contact Info) Description 08/20/2023 Clinical Communication Department of Radiation Oncology in [place], [place] [address] [place] [phone] Kev Hoffmann M.D. [address] [place] [address] Social History Tobacco Use Types Packs/Day Years Used Date Smoking Tobacco: Every Day Cigarettes 0.8 50.7 Started: 1975 Smokeless Tobacco: Never Alcohol Use Standard Drinks/Week Comments Yes 0 (1 standard drink = 0.6 oz pur e alcohol) 2 drinks/month [facility] Utilities Answer Date Recorded In the past 12 months has [employer] gas, oil, or water [employer] threatened to shut off services in your [...] your living situation today? I have a [facility] place to live 07/28/2023 Sex and [...] (cGy) First Treatment Last Treatment Elapsed Days [id number] 1000 5000 5000 08/14/2023 08/20/2023 6 Course [...] symptoms. They would like a call at [phone] documented in this encounter Plan of Treatment Not on file documented as of this encounter Visit Diagnoses Not on filedocumented in this encounter
--- OUTSIDE RECORDS SUMMARY | 2023-11-22 05:22 | XMS_ITS | Encounter Summary ---
Author Organization [facility] Address [address] [place] [address] Care Team Providers Care Racehorse Trainer Name Role Phone Unavailable Primary Care Provider Unavailabl e Encounter Details Date Type Department Care Team (Late st Contact Info) Description 08/20/2023 Documentation Department of Radiation Oncology in [place], [place] [address] [place] [address] Kev Hoffmann M.D. [address] [place] [address] Social History Tobacco Use Types Packs/Day Years Used Date Smoking Tobacco: Every Day Cigarettes 0.8 50.7 Started: 1975 Smokeless Tobacco: Never Alcohol Use Standard Drinks/Week Comments Yes 0 (1 standard drink = 0.6 oz pur e alcohol) 2 drinks/month [facility] Utilities Answer Date Recorded In the past 12 months has [employer], gas, oil, or water [employer] threatened to shut off services in your [...] your living situation today? I have a [facility] place to live 07/28/2023 Sex and [...] Left (HCC) Attending Physician: Kev Hoffmann M.D. ([phone]) Treatment Intent: Curative Concomitant Therapy: None Single Plan Treatment Course: 1xLungLowrSBRT Plan ID Fractions Dose / Fraction (cGy) Dose Treated (cGy) Dose Planned (cGy) First Treatment Last Treatment Elapsed Days [id number] 1000 5000 5000 08/14/2023 08/20/2023 6 Course [...] 3 months. We will schedule CT at [facility]. Dr. Hoffmann will follow up with patient soon after CT has been completed. Signed by: Fidelina Avilez R.N., 08/26/2023 3:57 PM CDT [facility] [address] [place], [place] [id number] documented in this encounter Plan of Treatment Not on file documented as of this encounter Visit Diagnoses Diagnosis Malignant Neoplasm Of Lung Lower Lobe Or Bronchus Left (HCC)- Primary documented in this encounter
--- OUTSIDE RECORDS SUMMARY | 2023-11-22 05:23 | XMS_ITS | Encounter Summary ---
Author Organization [facility] Address [address], [place] [address] Care Team Providers Care Build Master Name Role Phone Clinician, Not Found MD Primary Care Provider Un available Encounter Details Date Type Department Care Team (Late st Contact Info) Description 11/04/2023 Telephone Physiatry/Physical Medicine at [facility] [address] [facility]. [place], [place] [phone] Han Bradley MD [address] [place], [place] [phone] Social History Tobacco Use Types Packs/Day Years [...] on filedocumented in this encounter Care Teams Build Master Relationship Specialty Start Date End Date Clinician, Not Found, [place] [address] PCP - General 12/11/20 documented as of this encounter
--- OUTSIDE RECORDS SUMMARY | 2023-11-22 05:23 | XMS_ITS | Encounter Summary ---
Author Organization [facility] Address [address] [place] [address] Care Team Providers Care Zoo Caretaker Name Role Phone Unavailable Primary Care Provider Unavailabl e Encounter Details Date Type Department Care Team (Latest Contact Info) Description 08/20/2023 10:31 AM CDT - 08/20/2023 11:59 PM CDT Hospital Encounter Department of Radiation Oncology in [place], [place] [address] [place] [phone] Kev Hoffmann M.D. [address] [place] [address] Discharge Disposition: Home or Self Care Social History Tobacco Use Types Packs/Day Years Used Date Smoking Tobacco: Every Day Cigarettes 0.8 50.7 Started: 1975 Smokeless Tobacco: Never Alcohol Use Standard Drinks/Week Comments Yes 0 (1 standard drink = 0.6 oz pur e alcohol) 2 drinks/month [facility] Utilities Answer Date Recorded In the past 12 months has [employer], oil, or water [employer] threatened to shut off services in your [...] your living situation today? I have a [facility] place to live 07/28/2023 Sex and [...]
--- OUTSIDE RECORDS SUMMARY | 2023-11-22 05:23 | XMS_ITS | Clinical Summary ---
Author Organization [facility] Address [address], [place] [address] Care Team Providers Care Barrel Loader Name Role Phone Clinician, Not Found MD Primary Care Provider Un available Source Comments You are receiving this document as you are listed as the primary care provider,follow-up provider, or the patient has been referred to you for consultation.This is in compliance with the Medicare andHolzer Health Systemcaid EHR Incentive Program,which states Providers who transition their patient to another setting of careor provider of care or refers their patient to another provider of care shouldprovide summary care record for each transition of care or referral. [employer] Allergies No known active allergies Medications Medication [...] mouth daily. 90 Tablet 3 3 Active Largo-3 Fatty Acids (FISH OIL) 1000 MG capsule [...] PM CDT Office Visit Physiatry/Physical Medicine at [address] [place] [address] Han Bradley MD Cerebrovascular accident (CVA), unspecified mechanism (HRC) (Primary Dx); Right hemiparesis (HRC) 11/04/2023 Telephone Physiatry/Physical Medicine at [address] [place] [address] Han Bradley MD 10/06/2023 Telephone Physiatry/Physical Medicine at [address] [place] [address] Han Bradley MD Progress Report (OT Progress 10/01/23) 09/05/2023 Telephone Physiatry/Physical Medicine at [address] [place] [address] Han Bradley MD Progress Report (PT Progress [...] - 145 mmol/L 08/21/2022 6:36 AM CDT [facility] Potassium 4.5 3.5 - 5.1 mmol/L 08/21/2022 6:36 AM [facility] Chloride 112(H) 98 - 109 mmol/L 08/21/2022 6:36 AM T [facility] CO2 20 20 - 29 mmol/L 08/21/2022 6:36 AM T [facility] Anion Gap 9 7 - 16 mmol/L 08/21/2022 6:36 AM [facility] Calcium 9.0 8.4 - 10.4 mg/dL 08/21/2022 6:36 AM [facility] BUN 53(H) 7 - 26 mg/dL 08/21/2022 6:36 AM [facility] Creatinine 2.20(H) 0.73 - 1.18 mg/dL 08/21/2022 6:36 AM [facility] Glucose 102(H) 70 - 100 mg/dL 08/21/2022 6:36 AM [facility] Comment:The given reference range is for the fasting state. Non-fasting reference range for glucose is 70 - 180 mg/dL. GFR, Estimated 32(L) >60 mL/min/1.7 3m2 08/21/2022 6:36 AM [facility] Blood Venipuncture / Unknown 08/21/2022 5:51 AM CDT 08/21/2022 6:03 AM CDT Machelle Gregg MD LAB_[address] [address], [facility] [phone] from Last 3 Months or Most Recently Relevant to Health Maintenance Advance Directives * Full Code (Latest Code Status on File) Date Activated Date Inactivated Comments 08/14/2022 2:54 PM 08/21/2022 12:21 PM Care Teams Barrel Loader Relationship Specialty Start Date End Date Clinician, Not Found, [place] [address] PCP - General 12/11/20
--- OUTSIDE RECORDS SUMMARY | 2023-11-22 05:23 | XMS_ITS | Encounter Summary ---
Author Organization [facility] Address [address] [address] Care Team Providers Care Warehouse Order Selector Name Role Phone Clinician, Not Found MD Primary Care Provider Un available Reason for Visit * Reason Comments Progress Report OT Progress 10/01/23 Encounter Details Date Type Department Care Team (Late st Contact Info) Description 10/06/2023 Telephone Physiatry/Physical Medicine at [facility] [address] [facility]. [place], [place] [phone] Han Bradley MD [address] [place], [place] [phone] Progress Report (OT Progress 10/01/23) Social History [...] - 10/30/2023 2:29 PM CDT Received from [place] to do bin. [phone]. Confirmation received. Form sent to scanning. Thanks. Roseann Sands 10/30/2023, 2:29 PM * Machelle Irene CMA - 10/30/2023 8:43 AM CDT Provider has signed the form/document or completed request below. Please fax or send as requested. Placed in [place] to do. Machelle Ascencio CMA ([facility]), 10/30/2023 8:43 AM * Roseann Sands - 10/28/2023 10:20 AM CDT Received a fax from [place]. 3rd request for this to be completed. Fax is a duplicate, being deleted. Thanks. Roseann Sands 10/28/2023, 10:20 AM * Melecio Rahman - 10/10/2023 1:29 PM CDT Received a fax from [place] 2nd request for this to be completed. Fax is a duplicate, being deleted. Thanks. Melecio Rahman 10/10/2023, 1:30 PM * Machelle Irene CMA - 10/06/2023 3:36 PM CDT Provider is working at the hospital. Will review and sign forms, if appropriate, when back in clinic. Machelle Ascencio CMA ([facility]), 10/06/2023 3:36 PM * Melecio Rahman - 10/06/2023 10:24 AM CDT Received a fax from [facility]. OT daily note 10/01/23 Requesting provider signature. Fax can be found in provider right fax folder. Thanks. Melecio Rahman 10/06/2023, 10:24 AM documented in this encounter Plan of Treatment Not on file documented as of this encounter Visit Diagnoses Not on filedocumented in this encounter Care Teams Warehouse Order Selector Relationship Specialty Start Date End Date Clinician, Not Found, [place] [address] PCP - General 12/11/20 documented as of this encounter
--- OUTSIDE RECORDS SUMMARY | 2023-11-22 05:23 | XMS_ITS | Encounter Summary ---
Author Organization [facility] Address [address] [place] [address] Care Team Providers Care Combat Systems Operator Name Role Phone Unavailable Primary Care Provider Unavailabl e Encounter Details Date Type Department Care Team (Late st Contact Info) Description 07/31/2023 Orders Only Department of Radiation Oncology in [place], [place] [address] [place] [phone] Bonita Glover APRN, C.N.P., D.N.P. 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 I have a [facility] place to live 07/28/2023 Sex [...]
--- OUTSIDE RECORDS SUMMARY | 2023-11-22 05:23 | XMS_ITS | Encounter Summary ---
Author Organization [facility] Address [address] [place] [address] Care Team Providers Care Diesel Roller Operator Name Role Phone Unavailable Primary Care Provider Unavailabl e Encounter Details Date Type Department Care Team (Latest Contact Info) Description 08/19/2023 10:58 AM CDT Hospital Encounter Department of Radiation Oncology in [place], [place] [address] [place] [phone] Kev Hoffmann M.D. [address] [place] [address] Discharge Disposition: Home or Self Care Social History Tobacco Use Types Packs/Day Years Used Date Smoking Tobacco: Every Day Cigarettes 0.8 50.7 Started: 1975 Smokeless Tobacco: Never Alcohol Use Standard Drinks/Week Comments Yes 0 (1 standard drink = 0.6 oz pur e alcohol) 2 drinks/month [facility] Utilities Answer Date Recorded In the past 12 months has [employer], gas, oil, or water [employer] threatened to shut off services in your [...] your living situation today? I have a [facility] place to live 07/28/2023 Sex and [...]
--- OUTSIDE RECORDS SUMMARY | 2023-11-22 05:23 | XMS_ITS | Clinical Summary ---
Author Organization [facility] Address [address] [place] [address] Phone Care Team Providers Care Warranty Clerk Name Role Phone Dorinda Washington DO Primary Care Provider [phone] Encounters Date Type Department Care Team Description 09/22/2023 Documentation Only [facility] [address] [place] [address] No, Pcp from Last 3 Months [...] [facility] [address] [place] [address] Feliciano Soria MD [address] [place] [phone] Health Maintenance Due Date Last Done Comments [...] CDT) Glycosylated Hemoglobin a1C 6.9(H) <5.7 % [facility] Estimated Average Glucose 151(H) <117 mg/dL [facility] 07/03/2018 9:46 AM CDT Magdaleno Ernst MD LAB BLOOD ORDERABLES [facility] from Last 3 Months or Most Recently Relevant to Health Maintenance Care Teams Warranty Clerk Relationship Specialty Start Date End Date Dorinda [place] [address] PCP - General Family Medicine 09/22/23
--- OUTSIDE RECORDS SUMMARY | 2023-11-22 05:23 | XMS_ITS | Referral Summary ---
Author Organization [facility] Address [address] [place] [address] Care Team Providers Care Piece Goods Packer Name Role Phone Yousuf Bernard MD Primary Care Provider [phone] Abrahan Bower MD Unavailable [phone] Allergies No known active allergies Medications Medication [...] on file Medical Devices Implanted Type Area Battery Engineer Device Identifier Shelf Expiration Date Model / Serial / Lot Polaris Ultra [id number] Implanted:Qty : 1 on 10/04/2022 by Abrahan Bower MD at [facility] Right: [employer] [place] [id number] 08/01/2025 [id number] / / [id number] Polaris Ultra 5f X 28cm Implanted:Qty : 1 on 10/04/2022 by Abrahan Bower MD at [facility] Left: [employer] [place] [id number] 08/01/2025 [id number] 40 / / [id number] Explanted Type Area Battery Engineer Device Identifier Shelf Expiration Date Model / Serial / Lot Polaris Ultra, 5f X28cm Implanted:Qty: 1 on 09/16/2022 by Abrahan Bower MD at [facility] Explanted:Qty: 1 on 10/04/2022 by Abrahan Bower MD at [facility] Left: [employer] 05/22/2025 [id number] / / [id number] Polaris Ultra, 5f X28cm Implanted:Qty: 1 on 09/16/2022 by Abrahan Bower MD at [facility] Explanted:Qty: 1 on 10/04/2022 by Abrahan Bower MD at [facility] Right: [employer] 05/22/2025 [id number] / / [id number] Procedures Procedure Name Priority Date/Time Associated Diagnosis [...] AM CDT Abrahan Bower MD [facility]ORAT[facility] Acute Care Lab [address] Lab (1st floor, no room number) [place] [address], [facility] [phone] * (ABNORMAL) Basic metabolic panel (09/18/2022 12:33 PM CDT) [facility] Sodium 139 136 - 145 mmol/L 09/18/2022 [...] LAB - BLOOD ORDERA BLES LABORATORY [facility] Acute Care Lab [address] Lab (1st floor, no room number) [place] [address], [facility] [phone] * Lipid panel (07/12/2020 9:47 AM CDT) [facility] Signature Cholesterol 163 <200 mg/dL 07/12/2020 11:10 AM CDT [facility] Triglycerides 126 <150 mg/dL 07/12/2020 11:05 AM CDT [facility] HDL Cholesterol 42 >39 mg/dL 11:05 AM CDT [facility] LDL Cholesterol Calculated 96 <100 mg/dL 07/12/2020 11:10 AM CDT [facility] Comment:Desirable: <100 mg/d l Non HDL Cholesterol 121 <130 mg/dL 07/12/2020 11:10 AM CDT [facility] Blood 07/12/2020 9:47 AM CDT 07/12/2020 10:33 AM CDT Yousuf Bernard MD LAB - BLOOD ORDERABL ES [facility] [address] [address], [facility] [phone] from Last 3 Months or Most Recently Relevant to Health Maintenance Advance Directives For more information, please contact: [phone] * Full Code (Latest Code Status on File) Date Activated Date Inactivated Comments 09/16/2022 2:18 AM 09/17/2022 2:28 PM All basic an d advanced life-sustaining interventions are performed as appropriate Question Answer Comments Code status determined by: Discussion with patie nt/ legal decision maker Care Teams Piece Goods Packer Relationship Specialty Start Date End Date Yousuf Bernard MD [facility] [address] [facility] 101 [place] [address] PCP - General Family Medicine 06/16/22 Abrahan Bower MD [address] [facility] 500 [place] [address] Assigned Surgical Provider 10/12/22
--- OUTSIDE RECORDS SUMMARY | 2023-11-22 05:23 | XMS_ITS | Encounter Summary ---
Author Organization [facility] Address [facility] [place] [address] Care Team Providers Care Air Defense Control Officer Name Role Phone Yousuf Bernard MD Primary Care Provider [phone] Abrahan Bower MD Unavailable [phone] Reason for Visit * Reason Onset Date Comments Medication Question 10/03/2022 Encounter Details Date Type Department Care Team (Late st Contact Info) Description 10/03/[address] [facility] [place] [address] [place] [address] Abrahan Bower MD [address] [place] [address] Medication Question Social History Tobacco [...] on filedocumented in this encounter Care Teams Air Defense Control Officer Relationship Specialty Start Date End Date Yousuf Bernard MD [facility] [address] [facility] [address] [place], [place] [address] PCP - General Family Medicine 06/16/22 Abrahan Bower MD [address] [facility] 500 [place] [address] Assigned Surgical Provider 10/12/22 documented as of this encounter
--- OUTSIDE RECORDS SUMMARY | 2023-11-22 05:23 | XMS_ITS | Encounter Summary ---
Author Organization [facility] Address [address] [place] [address] Care Team Providers Care Construction Helper Name Role Phone Unavailable Primary Care Provider Unavailabl e Encounter Details Date Type Department Care Team (Latest Contact Info) Description 08/15/2023 10:01 AM CDT - 08/15/2023 11:59 PM CDT Hospital Encounter Department of Radiation Oncology in [place], [place] [address] [place] [address] Kev Hoffmann M.D. [address] [place] [address] Discharge Disposition: Home or Self Care Social History Tobacco Use Types Packs/Day Years Used Date Smoking Tobacco: Every Day Cigarettes 0.8 50.7 Started: 1975 Smokeless Tobacco: Never Alcohol Use Standard Drinks/Week Comments Yes 0 (1 standard drink = 0.6 oz pur e alcohol) 2 drinks/month [facility] Utilities Answer Date Recorded In the past 12 months has [employer], oil, or water [employer] threatened to shut off services in your [...] living situation today? I have a [facility] place to live 07/28/2023 Sex [...]
--- OUTSIDE RECORDS SUMMARY | 2023-11-22 05:23 | XMS_ITS | Encounter Summary ---
Author Organization [facility] Address [address] [place] [address]. [place] [address] Care Team Providers Care Wedding Decorator Name Role Phone Yousuf Bernard MD Primary Care Provider [phone] Abrahan Bower MD Unavailable [phone] Encounter Details Date Type Department Care Team (Late st Contact Info) Description 09/25/2022 MyC Medical Advice [facility] Urology Clinic [address] [place] [address] Hina Lujan Social History Tobacco [...] on filedocumented in this encounter Care Teams Wedding Decorator Relationship Specialty Start Date End Date Yousuf Bernard MD [facility] [address] [facility] [address] [place] [address] PCP - General Family Medicine 4/23/23 Abrahan Bower MD [address] [place] [address] [address] [address] Assigned Surgical Provider 10/12/22 documented as of this encounter
--- OUTSIDE RECORDS SUMMARY | 2023-11-22 05:23 | XMS_ITS | Encounter Summary ---
Author Organization [facility] Address [address] [place] [address] Care Team Providers Care Waterworks Pump Station Operator Name Role Phone Dorinda Washington DO Primary Care Provider Encounter Details Date Type Department Care Team [...] PM EDT Office Visit [facility] [address] [place] [address] Feliciano Soria MD [address] [place] [address] documented as of this encounter Visit Diagnoses Not on filedocumented in this encounter Care Teams Waterworks Pump Station Operator Relationship Specialty Start Date End Date Dorinda Washington DO [address] [place] [address] PCP - General Family Medicine 09/22/23 documented as of this encounter
--- OUTSIDE RECORDS SUMMARY | 2023-11-22 05:23 | XMS_ITS | Encounter Summary ---
Author Organization [facility] Address [address] [place] [address] Care Team Providers Care Herd Tester Name Role Phone Unavailable Primary Care Provider Unavailabl e Encounter Details Date Type Department Care Team (Latest Contact Info) Description 08/18/2023 11:05 AM CDT - 08/18/2023 11:59 PM CDT Hospital Encounter Department of Radiation Oncology in [place], [place] [address] [place] [address] Kev Hoffmann M.D. [address] [place] [address] Discharge Disposition: Home or Self Care Social History Tobacco Use Types Packs/Day Years Used Date Smoking Tobacco: Every Day Cigarettes 0.8 50.7 Started: 1975 Smokeless Tobacco: Never Alcohol Use Standard Drinks/Week Comments Yes 0 (1 standard drink = 0.6 oz pur e alcohol) 2 drinks/month [facility] Utilities Answer Date Recorded In the past 12 months has [employer], oil, or water [employer] threatened to shut off services in your [...] your living situation today? I have a [facility] place to live 07/28/2023 Sex and [...]
--- OUTSIDE RECORDS SUMMARY | 2023-11-22 05:23 | XMS_ITS | Clinical Summary ---
Author Organization [facility] Address [address] [place] [address] Care Team Providers Care Covering And Lining Supervisor Name Role Phone Yousuf Bernard MD Primary Care Provider [phone] Abrahan Bower MD Unavailable [phone] Allergies No known active allergies Medications Medication [...] this topic Medical Devices Implanted Type Area Bandoleer Straightener Stamper Device Identifier Shelf Expiration Date Model / Serial / Lot Polaris Ultra [id number] Implanted:Qty : 1 on 10/04/2022 by Abrahan Bower MD at [facility] Right: [employer] [place] [id number] 08/01/2025 [id number] 40 / / [id number] Polaris Ultra 5f X 28cm Implanted:Qty : 1 on 10/04/2022 by Abrahan Bower MD at [facility] Left: [employer] [place] [id number] 08/01/2025 [id number] 40 / / [id number] Explanted Type Area Bandoleer Straightener Stamper Device Identifier Shelf Expiration Date Model / Serial / Lot Polaris Ultra, 5f X28cm Implanted:Qty: 1 on 09/16/2022 by Abrahan Bower MD at [facility] Explanted:Qty: 1 on 10/04/2022 by Abrahan Bower MD at [facility] Left: [employer] 05/22/2025 [id number] / / [id number] Polaris Ultra, 5f X28cm Implanted:Qty: 1 on 09/16/2022 by Abrahan Bower MD at [facility] Explanted:Qty: 1 on 10/04/2022 by Abrahan Bower MD at [facility] Right: [employer] 05/22/2025 [id number] / / [id number] Procedures Procedure Name Priority Date/Time Associated Diagnosis [...] meter (10/04/2022 10:23 AM CDT) Pathologist [facility] GLUCOSE BY METER POCT 174(H) 70 - 99 mg/dL 10/04/2022 10:29 AM CDT RH LABORATORY POC Blood, Capillary BLOOD SPECIMEN / Unknown 10/04/2022 10:23 AM CDT 10/04/2022 10:29 AM CDT Abrahan Bower MD LAB - BEAKER PO CT RH LABORATORY POC [facility] Acute Care Lab [address] Lab (1st floor, no room number) [place] [address], [facility] [phone] * (ABNORMAL) Basic metabolic panel (09/18/2022 12:33 [...] Shipley MD LAB - BLOOD ORDERA BLES [facility] Acute Care Lab [address] Lab (1st floor, no room number) [place] [address], [facility] [phone] * Lipid panel (07/12/2020 9:47 AM CDT) Cholesterol 163 <200 mg/dL 07/12/2020 11:10 AM CDT [facility] Triglycerides 126 <150 mg/dL 07/12/2020 11:05 AM CDT [facility] HDL Cholesterol 42 >39 mg/dL 11:05 AM CDT [facility] LDL Cholesterol Calculated 96 <100 mg/dL 07/12/2020 11:10 AM CDT [facility] Comment:Desirable: <100 mg/d l Non HDL Cholesterol 121 <130 mg/dL 07/12/2020 11:10 AM CDT [facility] Blood 07/12/2020 9:47 AM CDT 07/12/2020 10:33 AM CDT Yousuf Bernard MD LAB - BLOOD ORDERABL ES Performing Organization Address City/[facility]/ZIP Co de Phone Number [facility] [address] [place] [address], [facility] [phone] from Last 3 Months or Most Recently Relevant to Health Maintenance Advance Directives For more information, please contact: [phone] * Full Code (Latest Code Status on File) Date Activated Date Inactivated Comments 09/16/2022 2:18 AM 09/17/2022 2:28 PM All basic an d advanced life-sustaining interventions are performed as appropriate Question Answer Comments Code status determined by: Discussion with laurene nt/ legal decision maker Care Teams Covering And Lining Supervisor Relationship Specialty Start Date End Date Yousuf Bernard MD [facility] [address] [facility] [address] [place], [place] [address] PCP - General Family Medicine 06/16/22 Abrahan Bower MD [address] [facility] 500 [place] [address] Assigned Surgical Provider 10/12/22
--- OUTSIDE RECORDS SUMMARY | 2023-11-22 05:23 | XMS_ITS | Encounter Summary ---
Author Organization [facility] Address [address], [place] [address] Care Team Providers Care Sports Nutritionist Name Role Phone Clinician, Not Found MD Primary Care Provider Un available Reason for Referral * Therapies (Routine) - New Request Specialty Diagnoses / Procedures Referred By Keenanac brittany Referred To Contact Diagnoses Cerebrovascular accident (CVA), unspecified mechanism (HRC) Right hemiparesis (HRC) Han Bradley MD [address] [place] [place] [address] Referral ID Status Reason Start Date Expiration Date V isits Requested Visits Authorized [id number] New Request 11/04/2023 11/03/2024 1 1 Scheduling [...] Right hemiparesis (HRC) Han Bradley MD [address] [place] [address] Referral ID Status Reason Start Date Expiration Date V isits Requested Visits Authorized [id number] New Request 11/04/2023 11/03/2024 1 1 Scheduling Instructions Your clinician has recommended an appointment with Physical Therapy and Rehabilitation Services. You can quickly make your appointment online at [employer]/schedule. You can also call [phone] for help scheduling your appointment. We suggest [...] PM CDT Office Visit Physiatry/Physical Medicine at [address] [place] [address] Han Bradley MD [address] [place], [place] [id number] Cerebrovascular accident (CVA), unspecified mechanism (HRC) (Primary [...] side documented in this encounter Care Teams Sports Nutritionist Relationship Specialty Start Date End Date Clinician, Not Found, [place] [address] PCP - General 12/11/20 documented as of this encounter
--- OUTSIDE RECORDS SUMMARY | 2023-11-22 05:23 | XMS_ITS | Encounter Summary ---
Author Organization [facility] Address [address] [address] Care Team Providers Care Health Sciences Program Coordinator Name Role Phone Clinician, Not Found MD Primary Care Provider Un available Reason for Visit * Reason Comments Progress Report PT Progress 09/04/23 Encounter Details Date Type Department Care Team (Late st Contact Info) Description 09/05/2023 Telephone Physiatry/Physical Medicine at [facility] [address] [facility]. [place], [place] [phone] Han Bradley MD [address] [place], [place] [id number] Progress Report (PT Progress 09/04/23) Social History [...] - 09/18/2023 1:59 PM CDT Received from [place] to do bin. Faxed to [facility] [place] at [phone]. Confirmation received. Form sent to scanning. Thanks. Roseann Sands 09/18/2023, 1:59 PM * Machelle Irene CMA - 09/18/2023 11:25 AM CDT Provider has signed the form/document or completed request below. Please fax or send as requested. Placed in CT to do. Machelle Ascencio CMA ([facility]), 09/18/2023 11:25 AM * Melecio Rahman - 09/12/2023 10:27 AM CDT Received a fax from [facility] [place] 2nd request for this to be completed. Fax is a duplicate, being deleted. Thanks. Melecio Rahman 09/12/2023, 10:27 AM * Johanna Zhong LPN - 09/05/2023 12:19 PM CDT Provider is working at the hospital. Will review and sign forms, if appropriate, when back in clinic. Johanna Johnson LPN 09/05/2023 12:19 PM * Melecio Rahman - 09/05/2023 9:47 AM CDT Received a fax from [facility] [place] Progress evaluation from 09/04/23 Requesting signature. Fax is in provider right fax folder to sign. Melecio Rahman 09/05/2023, 9:47 AM documented in this encounter Plan of Treatment Not on file documented as of this encounter Visit Diagnoses Not on filedocumented in this encounter Care Teams Health Sciences Program Coordinator Relationship Specialty Start Date End Date Clinician, Not Found, [place] [address] PCP - General 12/11/20 documented as of this encounter
--- OUTSIDE RECORDS SUMMARY | 2023-11-22 05:23 | XMS_ITS | Encounter Summary ---
Author Organization [facility] Address [address] [place] [address] Care Team Providers Care Financial Services Intern Name Role Phone Unavailable Primary Care Provider Unavailabl e Encounter Details Date Type Department Care Team (Latest Contact Info) Description 08/14/2023 3:02 PM CDT - 08/14/2023 11:59 PM CDT Hospital Encounter Department of Radiation Oncology in [place], [place] [address] [place] [address] Kev Hoffmann M.D. [address] [place] [address] Discharge Disposition: Home or Self Care Social History Tobacco Use Types Packs/Day Years Used Date Smoking Tobacco: Every Day Cigarettes 0.8 50.7 Started: 1975 Smokeless Tobacco: Never Alcohol Use Standard Drinks/Week Comments Yes 0 (1 standard drink = 0.6 oz pur e alcohol) 2 drinks/month [facility] Utilities Answer Date Recorded In the past 12 months has [employer], oil, or water [employer] threatened to shut off services in your [...] your living situation today? I have a [facility] place to live 07/28/2023 Sex and [...]
--- OUTSIDE RECORDS SUMMARY | 2023-11-22 05:23 | XMS_ITS | Encounter Summary ---
Author Organization [facility] Address [address] [place] [address] Care Team Providers Care Journeyman Pipefitter Name Role Phone Dorinda Washington DO Primary Care Provider [phone] Encounter Details Date Type Department Care Team (Late st Contact Info) Description 03/01/2019 Orders Only [facility] [address] [place] [address] Deborah Peres RN Chronic kidney disease, Stage III (moderate) ([facility]) Social History Tobacco Use Types Packs/Day Years [...] [facility] [address] [place] [address] Feliciano Soria MD [address] [place] [address] documented as of this encounter Visit Diagnoses Diagnosis Chronic kidney disease, Stage III (moderate) documented in this encounter Care Teams Journeyman Pipefitter Relationship Specialty Start Date End Date Dorinda Washington DO [address] [place] [address] PCP - General Family Medicine 09/22/23 documented as of this encounter
--- OUTSIDE RECORDS SUMMARY | 2023-11-22 05:23 | XMS_ITS | Encounter Summary ---
Author Organization [facility] Address [facility] [place] [address] Care Team Providers Care Loading Unit Operator Powder Charging Name Role Phone Yousuf Bernard MD Primary Care Provider [phone] Abrahan Bower MD Unavailable [phone] Reason for Visit * Reason Onset Date Comments Call Back 10/03/2022 Encounter Details Date Type Department Care Team (Late st Contact Info) Description 10/03/2022 Telephone [facility] Urology Clinic [place] [address] [place] [address] Abrahan Bower MD [address] [place] [address] Call Back Social History Tobacco [...] on filedocumented in this encounter Care Teams Loading Unit Operator Powder Charging Relationship Specialty Start Date End Date Yousuf Bernard MD [facility] [address] [facility] [address] [place] [address] PCP - General Family Medicine 06/16/22 Abrahan Bower MD [address] [facility] [address] [place] [address] Assigned Surgical Provider 10/12/22 documented as of this encounter
--- OUTSIDE RECORDS SUMMARY | 2023-11-22 05:23 | XMS_ITS | Clinical Summary ---
Author Organization [facility] Address [address] [address] Phone Care Team Providers Care Professor Of Special Education Name Role Phone Unavailable Primary Care Provider [...] NEEDED FOR DIZZINESS 06/17/2022 Active HYDROcodone-acetami nophen ([place]) 5-325 MG oral tablet Take 0.5-1 Tablets [...] W/POSSIBLE INTERVENTION; Surgeon: Durga Fernandez MBBS; Location: [facility]S Social History Tobacco Use Types [...] - 5.6 % 2022 4:23 AM CDT [facility] Estimated Average Glucose 174 mg/dL 2022 4:23 AM CDT [facility] Blood BLOOD SPECIMEN / Unknown Venipuncture / Unknown 2022 3:59 AM CDT 2022 4:07 AM CDT Narrative [facility] - 2022 4:23 AM CDT HGA1C Reference Ranges ??>= 6.5 ?? Diabetes* ??5.7-6.4 ??Impaired glucose tolerance ?? <5.7 ?Normal *In the absence of unequivocal hyperglycemia, results should be confirmed by repeat testing for the diagnosis of diabetes. [place] [employer] 2018 ?? Herman Snow DO EC CHEMISTRY ORDER PAN ABN [facility] [address] [place] [address], [facility] * (ABNORMAL) LIPID PANEL (2022 3:59 AM CDT) [facility] Signature Cholesterol 186 0 - 200 mg/dL 2022 4:29 AM CDT [facility] HDL Cholesterol 40(L) >40 mg/dL 4:29 AM CDT [facility] Non-HDL Cholesterol 146(H) 0 - 130 mg/dL 2022 4:29 AM CDT [facility] Triglycerides 164 <175 mg/dL 2022 4:29 AM CDT [facility] LDL Cholesterol, Calculated 113(H) 0 - 100 mg/dL 2022 4:29 AM CDT [facility] Blood BLOOD SPECIMEN / Unknown Venipuncture / Unknown 2022 3:59 AM CDT 2022 4:15 AM CDT Narrative [facility] - 2022 4:29 AM CDT [...] Snow DO EC CHEMISTRY ORDER PAN ABN [facility] [address] [place] [address], [facility] from Last 3 Months or Most Recently Relevant to Health Maintenance Advance Directives For more information, please contact: [phone] * Full Code (Latest Code Status on File) Date Activated Date Inactivated Comments 08/03/2022 4:23 PM 08/14/2022 3:22 PM * Full Code/Unaddressed Date Activated Date Inactivated Comments 08/03/2022 1:07 PM 08/03/2022 4:23 PM
--- OUTSIDE RECORDS SUMMARY | 2023-11-22 05:24 | XMS_ITS | Clinical Summary ---
Author Organization [facility] Address [address] [place] [address] Phone Care Team Providers Care Crop And Soil Scientist Name Role Phone Yousuf Bernard MD Primary Care Provider [phone] Allergies No known active allergies Medications Medication [...] Type Department Care Team Description 10/22/2023 Refill [facility] [address] [place] [address] Jin Shipley MD 09/24/2023 Telephone [facility] [address] [place] [address] Samantha To RN 09/12/2023 9:30 AM CDT Office Visit [facility] [address] [place] [address] Meena Dover MD Nephrolithiasis (Primary Dx); Renal disorder due to type 2 diabetes mellitus <Diabetic nephropathy> ([facility]); Essential hypertension; Monoclonal gammopathy; 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; Vitamin D deficiency, not otherwise specified; 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[facility]); Uric acid renal calculus; Stage 3b chronic kidney disease ([facility]) from Last 3 Months Immunizations Name Administration [...] Comments Blood Pressure 113/74 01/07/2023 3:22 PM DATA ENTRY ASSISTANT Pulse 80 01/07/2023 3:22 PM DATA ENTRY ASSISTANT Temperature 36.3 ??C (97.4 ??F) 01/07/2023 3:22 PM CS T Respiratory Rate 20 09/23/2022 2:15 PM CDT Oxygen Saturation 97% 01/07/2023 3:22 PM DATA ENTRY ASSISTANT Inhaled Oxygen Concentration - - Weight 111 kg (244 lb 3.2 oz) 01/07/2023 3:22 PM DATA ENTRY ASSISTANT Height 195.6 cm (6' 5) 01/07/2023 3:22 PM DATA ENTRY ASSISTANT Body Mass Index 28.96 01/07/2023 3:22 PM DATA ENTRY ASSISTANT Plan of Treatment Upcoming Encounters Date Type Department Care Team (Late st Contact Info) Description 12/08/2023 9:30 AM CDT Office Visit [employer] [facility] [address] [place], [place] [address] Menea Dover MD [address] [place], [place] [id number] Health Maintenance Due Date Last Done Comments Diabetic Foot Exam 08/05/1963 Ophthalmology Exam 08/05/1963 Pneumococcal PPSV23/PCV13 65 + Years / High and Highest Risk (2 of 3 - PCV) 03/07/2022 03/07/2021 COVID-19 Vaccine (4 - 2022-24 season) 2023 09/04/2022, 05/26/2020, 04/27/2020 Influenza Vaccine (#1) 2023 Care Teams Crop And Soil Scientist Relationship Specialty Start Date End Date Yousuf Bernard MD [address] [place], [place] [id number] PCP - General 02/14/23
--- OUTSIDE RECORDS SUMMARY | 2023-11-22 05:24 | XMS_ITS | Encounter Summary ---
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 - labs sent to [facility] DM2 Dx in 2011, possibly before. Poorly controlled. Most recent A1c 9.5 (09/10/23). Currently on metformin 500 mg BID (recently reduced from 1000 mg BID), ozempic, and glipizide. Has neuropathy, unclear if retinopathy present. Anemia screening Most recent Hgb 12.9 (09/10/23). No indication for iron or FOREST. Monoclonal IgG kappa Noted on SPEP/KAILASH 06/2022, stable. [place]:lambda normal 1.21. HTN Currently on amlodipine 10 mg daily, lisinopril 20 mg BID. BP well controlled 108/72 on recent clinic visit. No changes needed. CKD MBD Vit D deficiency Last vit D checked 05/2023, was 39.3. No changes needed. Will check PTH. F/u in 6 months. Patient would like to establish nephrology care closer to home, already has referral to [facility] in [facility]. Discussed getting appt scheduled for future because sometimes can take awhile to get an appointment. We'll continue seeing him until he's established with [facility]. Reviewed notes from Dr. Shipley (nephrology), Dr. [place] (family [facility]), Mary Mclean NP (pain clinic). Today's [...] Cerebral artery occlusion, unspecified, with cerebral infarction ([facility]) Depressive disorder Diabetes mellitus without mention of complication, type II or unspecified type, not stated as uncontrolled ([facility]) Essential hypertension Nephrolithiasis Other and unspecified hyperlipidemia [...] morning and 650 mg in the evening [id number] mg before bedtime. For 14 days ., [...] were reviewed. Meena Dover MD [facility] [phone] documented in this encounter Plan of Treatment Upcoming Encounters Date Type Department Care Team (Late st Contact Info) Description 12/08/2023 9:30 AM CDT Office Visit [facility] [address] [place] [address] Meena Dover MD [address] [place] [address] [place] [phone] documented as of this encounter Visit Diagnoses Diagnosis Nephrolithiasis- Primary Renal disorder due to type 2 diabetes mellitus <Diabetic nephropathy> ([facility]) Essential hypertension Monoclonal gammopathy 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
--- OUTSIDE RECORDS SUMMARY | 2023-11-22 05:24 | XMS_ITS | Clinical Summary ---
Author Organization [employer] Address [place], [place] [address] Care Team Providers Care Compress Trucker Name Role Phone Dorinda Washington DO Primary Care Provider Whitney Silva MD Unavailable Raisa White SHREDDING MACHINE TENDER Unavailable Faith Donovan RN Unavailable Kennedi Perry RN, BSN, OCN Unavailable Mary Mclean SHREDDING MACHINE TENDER Unavailable Unavailable Hina Campbell RN Unavailable Jin Shipley MD Unavailable [phone] Han Bradley MD Unavailable [phone] Allergies No known active allergies Medications Medication [...] 024 Discontinued(Re order (E-cancel not sent)) lancets ([employer] / GoNoodleTouch Delica Plus Lancet) 30 gauge miscIndications:Typ e [...] diabetes mellitus with diabetic 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, 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) Inject 2 mg subcutaneous [...] counter for therapeutic drug monitoring Inhale 1 Osteen into affected nostril(s) each time if needed [...] Department Care Team Description 11/21/2023 Orders Only [facility] [address] [place] [address] Estephania Hays PA <No scans attached> 11/20/2023 8:12 PM CDT - Present Hospital Encounter [facility] [address] [place] [address] [facility] [place] Hospitalists Of Zach Doty MD Shankar, Nisha, MBBS Acute CVA (cerebrovascular accident) (HC) (Primary Dx); Right sided weakness; Carotid artery stenosis with cerebral infarction (HC); Malignant neoplasm of lower lobe of left lung (HC) 11/20/2023 4:00 PM CDT Ancillary Procedure [facility] [address] [place] [address] Arrived 11/20/2023 Telephone [facility] [address] [place] [address] Dorinda Washington DO Lab (Need Order: potassium) 11/20/2023 Office Visit [facility] [address] [place] [address] Supriya Stevens DO Telehealth (crary stroke follow up/) 11/20/2023 Telephone [facility] [address] [place] [address] Sir Washingtoni Beth, DO Refill Request (Lisinopril) 11/19/2023 Orders Only [facility] Scanner 1 scan: (1-Ord) [facility], CT HEAD/BRAIN WO, 11/19/2023 11/19/2023 Office Visit [facility] [address] [facility] [address] [place] [phone] Treat, Supriya Akers DO Telehealth (Justice stroke code ) 11/19/2023 Telephone [facility] [address] [facility] [place] [address] Dorinda Washington Beth, DO Refill Request (Lisinopril) 11/18/2023 1:00 PM CDT Patient Outreach [facility] [address] [place] [address] Faith Donovan RN Diabetes (Follow-up) 11/18/2023 Refill [facility] [address] [place] [address] Dorinda Washington Beth, DO Refill Request (Lisinopril 20mg) 11/17/2023 3:56 PM CDT - 11/17/2023 11:59 PM CDT Hospital Encounter [facility] [address] [place] [address] Jacob Lemons MD 11/17/2023 11:00 AM CDT Procedure Only [facility] [address] [email or web address] [address] [place] [address] Jacob Lemons MD Procedure (Botox ) 11/17/2023 Travel 11/13/2023 Refill [facility] [address] [facility] [place] [address] Sir Washingtoni Beth, DO Refill Request (Atorvastatin) 11/12/2023 11:00 AM CDT Ancillary Procedure [facility] [address] [place] [address] 11/12/2023 Travel 11/10/2023 Refill [facility] [address] [place] [address] Ravin Saini NP Refill Request (Hydrocodone 5/325 mg) 11/07/2023 2:40 PM CDT Office Visit [facility] [address] [facility] [place] [address] Nicole Bowles, TY Follow Up 11/06/2023 2:30 PM CDT Orders Only [facility] [address] [facility] [address] [place] Lab 11/06/2023 Travel 11/04/2023 Travel 10/28/2023 1:20 PM CDT Telemedicine [facility] [address] [place] [phone] Ross Cardenas MD Telehealth; Consult (Smoking cessation) 10/27/2023 Travel 10/23/2023 12:55 PM CDT Office Visit [facility] [address] [place] [address] Dorinda Washington Beth, DO Preoperative Exam (11/05/23 - R shoulder surgery - ANW - Dr. Clark ); Medication Management (Discuss increase in Ozempic) 10/23/2023 Travel 10/22/2023 Refill [facility] [address] [place] [address] Sir Washingtoni Beth, DO Refill Request (Lisinopril) 10/13/2023 Refill [facility] [address] [place] [address] Mary Mclean NP Refill Request 09/25/2023 Orders Only [facility] [address] [place] [address] Padmini Dorinda Beth, DO Outside Order (Ordered by Meena Prado... 09/18/2023 11:00 AM CDT Office Visit [place] [address] [facility] [place] [address] Whitney Silva MD Follow Up (Primary cancer of left lower lobe of lung (HC)//) 09/18/2023 Travel 09/12/2023 E-Consult [facility] [address] [facility] [place] [address] Norah Vick, DeepaliD 09/10/2023 10:35 AM CDT Office Visit [facility] [address] [facility] [address] Shaqra, Dorinda Beth, DO Diabetes (68 Year Old male. medication refill) 09/10/2023 Travel 09/08/2023 Orders Only [facility] [address] [place] [address] Shaqra, Dorinda Beth, DO <No scans attached> 09/06/2023 Refill [facility] [address] [facility] [address] Shaqra, Dorinda Beth, DO Refill Request (Metformin) 09/02/2023 3:15 PM CDT Orders Only [facility] [address] [place] [address] Lab 09/02/2023 2:30 PM CDT Office Visit [facility] [address] [place] [address] Mary Mclean NP Follow Up (3 month follow up. Chronic pain- neuropathy. Last took hydrocodone last night at 2am.) 09/02/2023 Travel 08/29/2023 Refill [facility] [address] [place] [address] Shaqra, Dorinda Beth, DO Refill Request (Ozempic) from Last 3 Months Immunizations Name Administration Dates Next Due COVID-19 VACCINE COMIRNATY ( PFIZER-[facility] 30MCG/0.3ML) 12YO+ PFS 2023 COVID-19 vaccine (Pfizer-Bio [...] Sign Reading Time Taken Comments Blood Pressure 148/96 11/22/2023 4:10 AM CDT Pulse 88 11/22/2023 4:10 AM CDT Temperature 36.7 ??C (98.1 ??F) 11/22/2023 4:10 AM CD T Respiratory Rate 16 11/22/2023 4:10 AM CDT Oxygen Saturation 97% 11/22/2023 4:10 AM CDT Inhaled Oxygen Concentration - - Weight 100 kg (220 lb 8 oz) 11/21/2023 6:00 AM C DT Height 195.6 cm (6' 5) 07/17/2023 8:46 AM CDT Body Mass Index 26.15 07/17/2023 8:46 AM CDT Plan of Treatment Upcoming Encounters Date Type Department Care Team (Latest Contact Info) Description 11/25/2023 11:30 AM CDT Orders Only [facility] [address] [facility] [address] [place] 12/02/2023 1:00 PM CDT Office Visit [facility] [address] [place] [address] Zaira Rendon NP [address] [place] [address] 12/05/2023 11:25 AM CDT Nurse/Clinic Staff Only [facility] [address] [place] [address] 12/10/2023 11:45 AM CDT Orders Only [facility] [address] [place] [address] [place] 12/10/2023 12:55 PM CDT Office Visit [facility] [address] [address] Dorinda Washington, DO [address] [facility] [place] [address] 12/11/2023 2:10 PM CDT Nurse/Clinic Staff Only [facility] [address] [place] [address] 12/22/2023 11:00 AM CDT Ancillary Procedure [facility] [address] [place] [address] 12/25/2023 3:20 PM CDT Telemedicine [facility] [address] [place] [address] [place] [address] [place] [address] [address] [place] [address] 12/26/2023 1:00 PM CDT Office Visit [facility] [address] [place] [address] Nicole Bowles, OD [address] [place] [address] 12/30/2023 11:00 AM EQUIPMENT OPERAT0R Preop Visit [facility] [address] [place] [address] Dorinda Washington DO [address] [place] [address] 01/08/2024 2:00 PM EQUIPMENT OPERAT0R Office Visit [facility] [address] [place] [address] Fortino Frazier MD [address] [facility] [address] [place] [address] 01/14/2024 8:45 AM EQUIPMENT OPERAT0R Hospital Encounter [facility] [address] [place] [address] [place] [address] [facility] [[email or web address] [address] [place] [address] 01/14/2024 8:45 AM EQUIPMENT OPERAT0R - 01/14/2024 11:49 AM EQUIPMENT OPERAT0R Surgery [facility] [address] [place] [address] [place] [address] [place] [address] RIGHT TOTAL SHOULDER ARTHROPLASTY 02/12/2024 1:00 PM EQUIPMENT OPERAT0R Office Visit [facility] [address] [facility] [address] [place] [address] [place] [address] [place], [place] [id number] 02/16/2024 12:45 PM EQUIPMENT OPERAT0R Orders Only [facility] [address] [facility] [address] [place] 02/23/2024 1:00 PM EQUIPMENT OPERAT0R Office Visit [facility] [address] [place] [address] Whitney Silva MD [address] [place] [address] Scheduled Procedures Name Priority Associated Diagnoses Date/Ti me ARTHROPLASTY SHOULDER Elective GLENOHUMERAL JOINT OSTEOARTHRITIS 01/14/2024 8:45 AM EQUIPMENT OPERAT0R ARTHROPLASTY REVERSE SHOULDER Elective GLENOHUMERAL JOINT OSTEOARTHRITIS 01/14/2024 8:45 AM EQUIPMENT OPERAT0R SURGICAL PROCEDURE (TYPE PROCEDURE DESCRIPTION BELOW) Primary [...] Routine 10/29/2023 1:58 PM CDT Pre-op exam ID READING EKG - NO CHARGE, COMP ONLY [...] diabetes mellitus 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 diabetic 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, 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) HEMOGLOBIN A1C MONITORING (POCT) Routine 09/10/2023 10:36 AM CDT Type 2 diabetes mellitus with diabetic 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, unspecified whether alf insulin use (HC) COMPLIANCE DRUG ANALYSIS Routine 09/02/2023 3:19 PM CDT Encounter for therapeutic drug monitoring US ABD AORTA SCREENING Routine 10:11 AM EQUIPMENT OPERAT0R Screening for AAA (aortic abdominal aneurysm) ANTI HCV Routine 02/04/2023 11:56 AM EQUIPMENT OPERAT0R Need for hepatitis C screening test from Last 3 Months or Most Recently Relevant to Health Maintenance Results * SCAN-CARDIAC STRIP (11/22/2023 12:31 AM CDT) Scanner OTHER * (ABNORMAL) GLUCOSE METER (11/21/2023 9:50 PM CDT) Only the most recent of5 resultswithin the time period is included. GLUCOSE METER 139(H) 65 - 100 mg/dL 11/21/2023 10:00 PM CDT [facility] Blood BLOOD SPECIMEN / Unknown 11/21/2023 9:50 PM CDT 11/21/2023 10:00 PM CDT Kira SHARMA CHEMISTRY Performing Organization Address [facility] Co de Phone Number [facility] [address] [place] [address], * (ABNORMAL) Hemoglobin A1C Screening (11/21/2023 7:38 AM CDT) HEMOGLOBIN A1C SCREENING 8.6(H) <=6.4 % 11/21/2023 3:20 PM CDT [facility] Blood BLOOD SPECIMEN / Unknown Butterfly / Unknown 11/21/2023 7:38 AM CDT 11/21/2023 8:04 AM CDT Narrative [facility] - 11/21/2023 3:20 PM CDT ? (<5.7%) ?Normal ? (5.7% to 6.4%) ? Indicates prediabetes ? (>=6.5%) ? Confirms diabetes Falsely low levels may be seen with: Recent Transfusion, Recent Significant Blood Loss, Hemolytic Diseases, or Falsely elevated levels may be seen with: Untreated Anemias, Splenectomy Ernestina Stevenson MD CHEMISTRY Performing Organization Address [facility] Co de Phone Number [facility] [address] [place] [address], * (ABNORMAL) CBC no diff AM (11/21/2023 7:38 AM CDT) Only the most recent of2 resultswithin the time period is included. WHITE BLOOD COUNT 5.8 4.5 - 11.0 thou/cu mm 11/21/2023 9:07 AM T [facility] RED BLOOD COUNT 3.67(L) 4.30 - 5.90 mil/cu mm 11/21/2023 9:07 AM T [facility] HEMOGLOBIN 11.2(L) 13.5 - 17.5 g/dL 11/21/2023 9:07 AM T [facility] HEMATOCRIT 33.2(L) 37.0 - 53.0 % 11/21/2023 9:07 AM CDT [facility] MCV 91 80 - 100 fL 11/21/2023 9:07 AM T [facility] MCH 30.5 26.0 - 34.0 pg 11/21/2023 9:[address] [facility] MCHC 33.7 32.0 - 36.0 g/dL 11/21/2023 9:[address] [facility] RDW 12.2 11.5 - 15.5 % 11/21/2023 9:07 AM T [facility] PLATELET COUNT 160 140 - 440 thou/cu mm 11/21/2023 9:07 AM T [facility] MPV 11.9(H) 6.5 - 11.0 fL 11/21/2023 9:[address] [facility] NRBC 0.0 % 11/21/2023 9:07 AM T [facility] ABS NRBC 0.0 thou /cu mm 11/21/2023 9:[address] [facility] Blood BLOOD SPECIMEN / Unknown Butterfly / Unknown 11/21/2023 7:38 AM CDT 11/21/2023 8:04 AM CDT Ernestina Stevenson MD HEMATOLOGY [facility] [address] [place] [address], * (ABNORMAL) Lipid Panel (11/21/2023 7:38 AM CDT) CHOLESTEROL,TOTAL 93(L) 100 - 199 mg/dL 11/21/2023 8:33 AM CDT [facility] Comment: Cholesterol, Total Reference Ranges Desirable <200 mg/dL Borderline 200-239 mg/dL High >=240 mg/dL TRIGLYCERIDES 123 <150 mg/dL 11/21/2023 8:33 AM CDT [facility] HDL CHOLESTEROL 45 >40 mg/dL 8:33 AM CDT [facility] NON-HDL CHOLESTEROL 48 <145 mg/dl 11/21/2023 8:33 AM CDT [facility] CHOL/HDL RATIO 2.07 <4.50 11/21/2023 8:33 AM CDT [facility] LDL CHOLESTEROL 23 <=130 mg/dL 11/21/2023 8:33 AM CDT [facility] VLDL CHOLESTEROL 25 <=30 mg/dL 11/21/2023 8:33 AM T [facility] PROVIDER ORDERED STATUS RANDOM 11/21/2023 8:33 AM T [facility] Blood BLOOD SPECIMEN / Unknown Butterfly / Unknown 11/21/2023 7:38 AM CDT 11/21/2023 8:04 AM CDT Ernestina Stevenson MD CHEMISTRY [facility] [address] [place] [address], * (ABNORMAL) Basic metabolic panel AM (11/21/2023 7:38 AM CDT) Only the most recent of2 resultswithin the time period is included. SODIUM 141 136 - 145 mmol/L 11/21/2023 8:33 AM CDT [facility] POTASSIUM 3.8 3.5 - 5.1 mmol/L 11/21/2023 8:33 AM CDT [facility] CHLORIDE 108(H) 98 - 107 mmol/L 11/21/2023 8:33 AM CDT [facility] CO2,TOTAL 21(L) 22 - 29 mmol/L 11/21/2023 8:33 AM CDT [facility] ANION GAP 12 5 - 18 11/21/2023 8:33 AM CDT [facility] GLUCOSE 98 70 - 99 mg/dL 11/21/2023 8:33 AM CDT [facility] CALCIUM 9.2 8.8 - 10.2 mg/dL 11/21/2023 8:33 AM T [facility] BUN 24(H) 8 - 23 mg/dL 11/21/2023 8:33 AM T [facility] CREATININE 1.60(H) 0.70 - 1.20 mg/dL 11/21/2023 8:33 AM T [facility] BUN/CREAT RATIO 15 10 - 20 8:33 AM T [facility] eGFR 46(L) >90 mL/min/1.7 3m2 11/21/2023 8:33 AM T [facility] Comment:As of 2021, eG [...] 8:04 AM CDT Ernestina Stevenson MD CHEMISTRY [facility] [address] [place] [address], * SCAN-CARDIAC STRIP (11/21/2023 1:02 AM CDT) [...] CDT ECHOCARDIOGRAM CHATO HE ? Accession#: ?? [id number] : ?1955 68 years Study Date: ?? 11/20/2023 12:57:15 PM Gender: M ?BP: ? 155/99 mmHg Height: 196.00 cm ?BSA: ?2.38 m? ? ? Weight: 105.00 kg ?Tech: ? MCK ? Referring MD: ZENOBIA HERNANDEZ Site: ? [facility] Reading [facility] Patient Location: Inpatient. Procedure: 2D, Color [...] . This study was interpreted by an [facility] accredited facility. CC: HIM (med records) [facility], Med/Surg - IP [facility]. ??Final ?? Procedure Note Gabino Pierre MD - 11/20/2023 ECHOCARDIOGRAM CHATO HE : 1955 68 years Study Date: 11/20/2023 12:57:15 PM Gender: M BP: 155/99 mmHg Height: 196.00 cm BSA: 2.38 m? ? ? Weight: 105.00 kg Tech: [facility] Referring MD: ZENOBIA HERNANDEZ Site: [facility] Reading Location[facility] Patient Location: Inpatient. Procedure: 2D, Color [...] [facility] accredited facility. CC: HIM (med records) [facility], Med/Surg - IP [facility]. Final Zenobia Hernandez MD ECHO ORD * [...] resultswithin the time period is included. Pathologist [facility] [place] POTASSIUM 4.5 3.5 - 5.1 mmol/L 11/07/2023 3:48 AM CDT [facility] Blood BLOOD SPECIMEN / Unknown Venipuncture / Unknown 11/06/2023 2:36 PM CDT 11/06/2023 2:36 PM CDT Dorinda Washington DO CHEMISTRY [facility] [address] [place] [address], * EKG 12 LEAD UNIT PERFORMED (10/29/2023 1:58 PM CDT) Dorinda Beth Sandeepq DO EKG ORD * ID READING EKG - NO CHARGE, COMP ONLY (10/29/2023 1:47 PM CDT) Dorinda Washington DO PB - PROVIDER READIN GS * (ABNORMAL) HEMOGLOBIN (10/23/2023 1:51 PM CDT) HEMOGLOBIN 12.6(L) 13.5 - 17.5 g/dL 10/23/2023 1:[address] [facility] MCV 91 80 - 100 fL 10/23/2023 1:[address] [facility] Blood BLOOD SPECIMEN / Unknown Venipuncture / Unknown 10/23/2023 1:51 PM CDT 10/23/2023 1:51 PM CDT Dorinda Washington DO HEMATOLOGY [facility] [address] [place] [address], * (ABNORMAL) CREATININE (10/23/2023 1:51 PM CDT) Pathologist [facility] [place] eGFR 44(L) >90 mL/min/1.7 3m2 10/23/2023 10:57 PM CDT [facility] Comment:As of 2021, eG FR is calculated by the CKD-EPI creatinine equation without race adjustment. ??eGFR can be influenced by muscle mass, exercise, and diet. ??The reported eGFR is an estimation only and is only applicable if the renal function is stable. CREATININE 1.65(H) 0.70 - 1.20 mg/dL 10/23/2023 10:57 PM CDT [facility] Blood BLOOD SPECIMEN / Unknown Venipuncture / Unknown 10/23/2023 1:51 PM CDT 10/23/2023 1:51 PM CDT Dorindajanessa Hopkinscheng DIAZ CHEMISTRY [facility] [address] [place] [address], * (ABNORMAL) CBC WITH AUTO DIFFERENTIAL (09/10/2023 10:36 AM CDT) [facility] WHITE BLOOD COUNT 6.3 4.5 - 11.0 thou/cu mm 09/10/2023 11:[address] [facility] RED BLOOD COUNT 4.12(L) 4.30 - 5.90 mil/cu mm 09/10/2023 11:[address] [facility] HEMOGLOBIN 12.9(L) 13.5 - 17.5 g/dL 09/10/2023 11:[address] [facility] HEMATOCRIT 37.0 37.0 - 53.0 % 09/10/2023 11:[address] [facility] MCV 90 80 - 100 fL 09/10/2023 11:[address] [facility] MCH 31.3 26.0 - 34.0 pg 09/10/2023 11:[address] [facility] MCHC 34.9 32.0 - 36.0 g/dL 09/10/2023 11:[address] [facility] RDW 12.9 11.5 - 15.5 % 09/10/2023 11:[address] [facility] PLATELET COUNT 181 140 - 440 thou/cu mm 09/10/2023 11:[address] [facility] MPV 12.1(H) 6.5 - 11.0 fL 09/10/2023 11:[address] [facility] % NEUT 64.5 % 09/10/2023 11:[address] [facility] % LYMPH 21.0 % 09/10/2023 11:[address] [facility] % MONO 9.3 % 09/10/2023 11:[address] [facility] % EOS 4.4 % 09/10/2023 11:[address] [facility] % BASO 0.8 % 09/10/2023 11:[address] [facility] ABSOLUTE NEUTROPHILS 4.1 1.7 - 7.0 thou/cu mm 09/10/2023 11:[address] [facility] ABSOLUTE LYMPHOCYTES 1.3 0.9 - 2.9 thou/cu mm 09/10/2023 11:[address] [facility] ABSOLUTE MONOCYTES 0.6 <0.9 thou/cu mm 09/10/2023 11:[address] [facility] ABSOLUTE EOSINOPHILS 0.3 <0.5 thou/cu mm 09/10/2023 11:[address] [facility] ABSOLUTE BASOPHILS 0.1 <0.3 thou/cu mm 09/10/2023 11:[address] [facility] Blood BLOOD SPECIMEN / Unknown Venipuncture / Unknown 09/10/2023 10:36 AM CDT 09/10/2023 10:39 AM CDT Dorinda Beth Hopkinsqra DO HEMATOLOGY Performing Organization Address [facility] Co de Phone Number [facility] [address] [place] [address], * EXTRA TUBE GOLD/SST (09/10/2023 10:36 AM CDT) Blood BLOOD SPECIMEN / Unknown Venipuncture / Unknown 09/10/2023 10:36 AM CDT 09/10/2023 10:39 AM CDT Dorinda Beth Hopkinsqra DO LABORATORY Performing Organization Address [facility] de Phone Number [facility] [address] [place] [address], * (ABNORMAL) HEMOGLOBIN A1C MONITORING (POCT) (09/10/2023 10:36 AM CDT) HEMOGLOBIN A1C MONITORING (POCT) 9.5(H) <=6.4 % 09/10/2023 10:[address] [facility] Blood BLOOD SPECIMEN / Unknown Venipuncture / Unknown 09/10/2023 10:36 AM CDT 09/10/2023 10:[address] [facility] - 09/10/2023 10:50 AM CDT ? (<=6.9%) [...] Beth Hopkinsqra DO CHEMISTRY Performing Organization Address [facility] Co de Phone Number [facility] [address], [place] [phone] * (ABNORMAL) COMPLIANCE DRUG ANALYSIS (09/02/2023 3:19 PM CDT) 6-MONOACETYL MORPHINE NEG NEG ng/mL 09/04/2023 12:20 PM CDT [facility] AMPHETAMINE URINE NEG <=500 ng/mL 09/04/2023 12:20 PM T [facility] BARBITURATE URINE NEG <=200 ng/mL 09/04/2023 12:20 PM CDT [facility] BENZODIAZEPINE URINE NEG <=100 ng/mL 09/04/2023 12:20 PM T [facility] BUPRENORPHRINE URINE NEG <=5 ng/mL 08/24 12:20 PM T [facility] COCAINE METAB URINE NEG <=300 ng/mL 09/04/2023 12:20 PM T [facility] ETHYLGLUCURONIDE URINE NEG <=250 ng/mL 09/04/2023 12:20 PM T [facility] FENTANYL URINE NEG <=4 ng/mL 09/04/2023 12:20 PM T [facility] METHADONE URINE NEG <=300 ng/mL 09/04/2023 12:20 PM [facility] OPIATES URINE POS(A) <=300 ng/mL 09/04/2023 12:20 PM [facility] OXYCODONE URINE NEG <=100 ng/mL 09/04/2023 12:20 PM [facility] PROPOXYPHENE URINE NEG <=300 ng/mL 09/04/2023 12:20 PM [facility] THC 50 URINE NEG <=50 ng/mL 09/04/2023 12:20 PM [facility] TRAMADOL NEG <=200 ng/mL 09/04/2023 12:20 PM [facility] PH URINE 5.2 5.0 - 7.0 09/04/2023 12:20 PM [facility] CREAT UR 75 >=20 mg/dL 09/04/2023 12:20 PM [facility] MASS SPECTROMETRY URINE See Below 09/04/2023 12:20 PM [facility] Comment:Amitriptyline, Nortr iptyline, Hydrocodone, Norhydrocodone, Lidocaine and Metformin present. Urine URINE SPECIMEN / Unknown Non-Blood / Unknown 09/02/2023 3:19 PM CDT 09/02/2023 3:19 PM CDT Narrative [facility] - 09/04/2023 12:20 PM CDT Current [...] daily with evening meal. blood sugar diagnostic ([employer] Verio test strips) strip, Dispense item covered [...] 09/02/2023 This procedure was originally ordered at [facility] at [facility] [place]. Release to patient->Immediate Mary Mclean NP URINE [facility] [address] [place] [address], [place] * US ABD AORTA SCREENING [[id number]] (02/21/2023 10:11 AM EQUIPMENT OPERAT0R) Anatomical Region Laterality Modality Abdomen, AORTA Ultrasound 02/21/2023 2:18 PM EQUIPMENT OPERAT0R Narrative 02/21/2023 2:18 PM EQUIPMENT OPERAT0R For Patients: ??As a result of the [...] aorta measuring 3.7 cm. Dictated by Abel Vlaverde MD @ Feb 21 2023 ??2:18PM (Electronically [...] US * ANTI HCV (02/04/2023 11:56 AM EQUIPMENT OPERAT0R) HEPATITIS C ANTIBODY Non-Reacti ve Non-React nerissa 02/04/2023 9:39 PM EQUIPMENT OPERAT0R [facility] Comment:Please note, per www .CDC.gov: If a patient is known to be at high risk of HCV infection, or is symptomatic, and the physician's suspicion of HCV infection is high, HCV RNA testing is often employed and is of diagnostic value, even after an initial negative anti-HCV test result. Blood BLOOD SPECIMEN / Unknown Venipuncture / Unknown 02/04/2023 11:56 AM EQUIPMENT OPERAT0R 02/04/2023 11:58 AM EQUIPMENT OPERAT0R Dorinda Washington DO SEND OUTS [facility] [address] [place] [address], from Last 3 Months or Most Recently [...] Comments Code Status Discussion: Other Care Teams Compress Trucker Relationship Specialty Start Date End Date Dorinda Washington DO [address] [place] [address] PCP - General Family Practice 09/04/22 Whitney Silva MD [address] [place] [address] Medical Oncologist Hematology and Oncology 12/26/22 Raisa White, SHREDDING MACHINE TENDER [address] [place] [address] Nurse Practitioner Hematology and Oncology 12/26/22 Faith Donovan, RN [address] [place] [address] Application Security Developer 02/11/23 Kennedi Perry, RN, BSN, OCN [address] [place] [address] Nurse Navigator - Oncology Registered Nurse 02/19/23 Mary Mclean NP [address] [place] [address] Nurse Practitioner - Family 02/25/23 Hina Campbell RN [address] [place] [address] Nurse Navigator - Oncology Registered Nurse 06/06/23 Jin Shipley MD [address] [facility] [address] [place] [address] Nephrology 07/17/23 Han Bradley MD [address] [place] [address] Physical Medicine and Rehabilitation 07/17/23
--- OUTSIDE RECORDS SUMMARY | 2023-11-22 05:24 | XMS_ITS | Encounter Summary ---
Author Organization [facility] Address [address] [place] [address] Phone Care Team Providers Care Florist Manager Name Role Phone Yousuf Bernard MD Primary Care Provider [phone] Encounter Details Date Type Department Care Team (Late st Contact Info) Description 09/24/2023 Telephone [employer] [place], [place] [id number] Samantha To RN Social History Tobacco Use [...] 24h litholink and then labs faxed to [facility] (renal panel, UA with reflex, UACR, and PTH). Thanks! documented in this encounter Plan of Treatment Upcoming Encounters Date Type Department Care Team (Late st Contact Info) Description 12/08/2023 9:30 AM CDT Office Visit [facility] [address] [facility] [address] [place], [place] [id number] Meena Dover MD [address] [facility] [address] [place], [place] [phone] documented as of this encounter Visit Diagnoses Not on filedocumented in this encounter Care Teams Florist Manager Relationship Specialty Start Date End Date Yousuf Bernard MD [address] [place] [address] PCP - General 02/14/23 documented as of this encounter
--- OUTSIDE RECORDS SUMMARY | 2023-11-22 05:24 | XMS_ITS | Encounter Summary ---
Author Organization [facility] Address [address] [place] [address] Phone Care Team Providers Care Vehicle Return Associate Name Role Phone Yousuf Brenard MD Primary Care Provider [phone] Reason for Visit * Reason Comments Med Refill Encounter Details Date Type Department Care Team (Late Contact Info) Description 10/22/2023 Refill [facility] [address] [place] [address] Jin Shipley MD [address] [place], [place] [address]e [facility] [address] [place] [phone] Social History Tobacco Use Types Packs/Day Years [...] Description 12/08/2023 9:30 AM CDT Office Visit [facility] [employer] [address] [place] [address] Meena Dover MD [facility] [address] [place] [phone] documented as of this encounter Visit Diagnoses Not on filedocumented in this encounter Care Teams Vehicle Return Associate Relationship Specialty Start Date End Date Yousuf Bernard MD [address] [address] PCP - General 02/14/23 documented as of this encounter
== END 2023-11-20 19:01 | disposition home or self-care (01) ==
LOC: AMB 11-22 05:21
PROVIDERS: PCP Family Medicine; Visit Provider Family Medicine
DX: I65.29 Occlusion and stenosis of unspecified carotid artery (principal); R42 Dizziness and giddiness
CPT/HCPCS: A0425; A0427

== ENCOUNTER 2024-02-16 10:15 | Outpatient (RCR) | payer MEDICARE, BC, SELFPAY | END 2024-02-16 12:31 | disposition home or self-care (01) | PROVIDERS: PCP Student in an Organized Health Care Education/Training Program; Visit Provider Physical Medicine & Rehabilitation | DX: I69.351 Hemiplegia and hemiparesis following cerebral infarction affecting right dominant side (principal); M62.81 Muscle weakness (generalized); R26.81 Unsteadiness on feet; R26.89 Other abnormalities of gait and mobility; Z51.89 Encounter for other specified aftercare | CPT/HCPCS: 97110; 97112; 97116; 97140; 97162; 97166; 97530; X5282 ==

== ENCOUNTER 2025-01-12 13:16 | Outpatient (CLI) | payer MEDICARE, BC, SELFPAY | END 2025-01-12 13:17 | disposition home or self-care (01) | LOC: AMB 01-17 15:52 | PROVIDERS: PCP Family Medicine; Visit Provider Family Medicine | DX: R53.1 Weakness (principal) | CPT/HCPCS: A0425; A0427 ==

== ENCOUNTER 2025-01-12 13:44 | Inpatient (IN) | payer MEDICARE, BC, SELFPAY ==
--- OUTSIDE RECORDS SUMMARY | 2024-09-28 05:30 | XMS_ITS | Continuity of Care Document ---
Author Organization [facility] Address [address] [facility] [address] [place] [address] Phone Care Team Providers Care Document Examiner Name Role Phone Dre Benson MD Unavailable Unavailable Allergies, Adverse Reactions, Alerts Substance Reaction Status Criticality No Known Allergies Active No Inform ation Medications Medication Instructions Dosage Effective Dates (start - stop) Status Comments Eliquis 5 mg tablet take 2 tablet by oral route 2 times every day 10 MG - Active allopurinol 300 mg tablet take 1 tablet by oral route every day 300 MG - Active amlodipine 10 mg tablet take 1 tablet by oral route every day 10 MG - Active hydrocodone 5 mg-acetaminophen 325 mg tablet take 1 tablet by oral route every 8 hours as needed for pain 1 tablet - Active Lipitor 80 mg tablet take 1 tablet by oral route every day 80 MG - Active ketoconazole 2 % topical cream apply by topical route 2 times every day to the affected area(s) Not Available - Active glipizide 10 mg tablet take 1 tablet by oral route every day before a meal 10 MG - Active hydrocortisone 2.5 % topical cream apply by topical route 3 times every day a thin layer to the affected area(s) Not Available - Active meclizine 25 mg tablet take 1 tablet by oral route 3 times every day as needed 25 MG - Active Narcan 4 mg/actuation nasal spray spray 0.1 milliliter by intranasal route in 1 nostril may repeat dose every 2-3 minutes as needed alternating nostrils with each dose 4 MG - Active hydrocodone 5 mg-acetaminophen 325 mg tablet take 1 tablet by oral BID as needed for pain - No Longer Active Chronic pain Procedures Procedure Date New Pt Eval Moderate Toxicology Test Group B Results Test Name Date and Time Measure Units Reference Range Abnormal Flag Status Comments Panel Description: 7 Panel UDT Final Amphetamine 13:44:00 0 ng/mL <100 Final Performed by:[facility] [place] ([facility]) Methamphetamine 13:44:00 0 ng/mL <300 Final Performed by:[facility] [place] ([facility]) 7-Aminoclonazepam 13:44:00 0 ng/mL <50 Final Performed by:[facility] [place] ([facility]) Alpha-Hydroxyalpraz olam 13:44:00 0 ng/mL <50 Final Performed by:[facility] [place] ([facility]) Lorazepam 13:44:00 0 ng/mL <50 Final Performed by:[facility] [place] ([facility]) Nordiazepam 13:44:00 0 ng/mL <50 Final Performed by:[facility] [place] ([facility]) Oxazepam 13:44:00 0 ng/mL <25 Final Performed by:[facility] [place]) Temazepam 13:44:00 0 ng/mL <50 Final Performed by:[facility] [place] ([facility]) Buprenorphine 13:44:00 0 ng/mL <10 Final Performed by:[facility] [place] ([facility]) Norbuprenorphine 13:44:00 0 ng/mL <20 Final Performed by:[facility] [place] ([facility]) Benzoylecgonine (SEBASTIEN Metabolite) 13:44:00 0 ng/mL <50 Final Performed by:[facility] [place] ([facility]) Fentanyl 13:44:00 0 ng/mL <1 Final Performed by:[facility] [place] ([facility]) Norfentanyl 13:44:00 0 ng/mL <4 Final Performed by:[facility] [place] ([facility]) Gabapentin 13:44:00 0 ng/mL <500 Final Performed by:[facility] [place] ([facility]) 6-acetylmorphine 13:44:00 0 ng/mL <10 Final Performed by:[facility] [place] ([facility]) Ketamine 13:44:00 0 ng/mL <50 Final Performed by:[facility] [place] ([facility]) EDDP 13:44:00 0 ng/mL <50 Final Performed by:[facility] [place] ([facility]) Methadone 13:44:00 0 ng/mL <100 Final Performed by:[facility] [place] ([facility]) MDA 13:44:00 0 ng/mL <100 Final Performed by:[facility] [place] ([facility]) MDMA (Ecstacy) 13:44:00 0 ng/mL <100 Final Performed by:[facility] [place] ([facility]) Methylphenidate 13:44:00 0 ng/mL <50 Final Performed by:[facility] [place] ([facility]) Codeine 13:44:00 0 ng/mL <50 Final Performed by:[facility] [place] ([facility]) Hydrocodone 13:44:00 297 ng/mL <50 H Final Performed by:[facility] [place] ([facility]) Hydromorphone 13:44:00 84 ng/mL <50 H Final Performed by:[facility] [place] ([facility]) Morphine 13:44:00 0 ng/mL <50 Final Performed by:[facility] [place] ([facility]) Norhydrocodone 13:44:00 307 ng/mL <50 H Final Performed by:[facility] [place] ([facility]) Naloxone 13:44:00 0 ng/mL <20 Final Performed by:[facility] [place] ([facility]) Oxycodone 13:44:00 0 ng/mL <50 Final Performed by:[facility] [place] ([facility]) Oxymorphone 13:44:00 0 ng/mL <50 Final Performed by:[facility] [place] ([facility]) Noroxycodone 13:44:00 0 ng/mL <50 Final Performed by:[facility] [place] ([facility]) Phencyclidine 13:44:00 0 ng/mL <10 Final Performed by:[facility] [place] ([facility]) Pregabalin 13:44:00 0 ng/mL <200 Final Performed by:[facility] [place] ([facility]) Carisoprodol 13:44:00 0 ng/mL <50 Final Performed by:[facility] [place] ([facility]) Meprobamate 13:44:00 0 ng/mL <100 Final Performed by:[facility] [place] ([facility]) THC-COOH (Marijuana) 13:44:00 0 ng/mL <50 Final Performed by:[facility] [place] ([facility]) Zolpidem 13:44:00 0 ng/mL <20 Final Performed by:[facility] [place] ([facility]) Tapentadol 13:44:00 0 ng/mL <25 Final Performed by:[facility] [place] ([facility]) Tramadol 13:44:00 0 ng/mL <50 Final Performed by:[facility] [place] ([facility]) Panel Description: NORCO Final Image UDT Lab Result 1 Panel Description: Point Of Care Testing (with T HC) Final POCT-Opiates neg Final POCT Amphetamine neg ng/mL Final POCT-Methamphetamin e neg Final POCT-Cocaine neg Final POCT-Marijuana neg Final POCT-Creatinine wnl Final POCT-Specific Bruno wnl Final Recollection? no Final POCT-Temperature 90 Final Advance Directives Directive Yes / No Effective Date File Name Other Directive No N/A N/A WARNING:The information contained in this section is historical and is provided for information only and does not constitute a legal document or any assurance that the information is still accurate. Please verify the information with the paul of the legal document before using it for clinical purposes. Encounters Encounter Description Practice Location Reason(s) For Visit Diagnoses Date Provider Providers Copied on Encounter New Pt Eval Moderate [facility], [facility], [address], [place], [place], [id number], [place] tel:[phone] [facility] foot pain (chief complaint)s houlder pain (chief complaint) Type II DM w/ diabetic neuropathyBody mass index (BMI) 27.0-27.9, adult 5 Marcelino Erickson. [address], [facility] [facility], [id number], [place]. tel:[phone] Referring Provider: Dre Benson, [address], [place], [address] . tel:[phone] [facility], [address], [place], [place], [id number], [place] tel:[phone] [facility] No Information 5 Marcelino Erickson. [address], [place], [place], [id number], [place]. tel:[phone] Referring Provider: Dre Benson, [address], [place], [address] . tel:[phone] Family History Family Member Type Diagnosis Age At Onset No Information Payers Payer name Insurance type Covered democrat ID Authorgokula titerell(s) Medicare Part B MB [id number] Blue Cross Medicare 16 [id number] Social History Type Description Quantity Date Captured Comments Alcohol Use Details Aug-05-2025 Caffeine Use Details Unknown Tobacco Use Status Occasional cigarette smoker Smoking Status Heavy tobacco smoker Smoking Tobacco Use Details Cigarette: No Details Available Cigarette: 0.75 Packs per day Sex Male Vital Signs Date / Time: Height Weight BMI Pulse Rate Blood Pressure Temperature Respiratory Rate Body Surface Area Head Circumference Head Circ. Percentile Wt./Quentin. Percentile BMI percentile Pulse Ox Inhaled Ox 11:30 AM 77.00 in 106.141 kg (234.00 lbs) 27.7 5 kg/m eter (2) 75 /min 114/72 mm[Hg] 2.40 meter(2) 97 % Chief Complaint And Reason For Visit From encounter dated '09/28/2024 11:30'. foot pain (chief complaint). Description: The pain is located in the both feet. Pain intensity is currently 5/10.The pain is described as burning. The following activities make the pain worse: daily activity. The following activities make the pain better: pain medication. shoulder pain (chief complaint). Description: The pain is located in the right shoulder. Pain intensity is currently 0/10.The pain is described as aching. The following activities make the pain worse: movement. The following activities make the pain better: pain medication. Additional information: OA. Reason For Referral Reason For Referral No Information History Of Present Illness Encounter Date Complaint History Of Prese nt Illness foot pain The pain is loca karo in the both feet. Pain intensity is currently 5/10.The pain is described as burning. The following activities make the pain worse: daily activity. The following activities make the pain better: pain medication. shoulder pain The pain is loca karo in the right shoulder. Pain intensity is currently 0/10.The pain is described as aching. The following activities make the pain worse: movement. The following activities make the pain better: pain medication. Additional information: OA. Functional Status Date Functional Assessmen t No Information Instructions Date Instruction Additional Infor mitch - Prescribed [place] 5 -325mg 2x/day* Discuss this prescription with your primary care provider, [facility] recommends that they take over this prescription as it is a low and stable dose for more than 1 year, you do not ask for early refills, and you do not overuse medication. Your primary can reach out to [facility] to discuss this as needed.- Follow up with nurse practitioner or PA for medication refill as needed in November* Consider [facility] for continued medication only pain management.- Consider spinal cord stimulator if your pain becomes more severe or interrupts your daily living. Related to Type II DM w/ diabetic neuropathy Giving encouragement to exercise Related to Body mass index [BMI] 27.0-27.9, adult Assessments Type Assessment Date assessment Type II DM w/ diabetic neuropath y manuel Reis presents with [address] foot numbness and tingling in a sock like distribution. His pain increases in severity throughout the day, and his balance is being impaired by feeling of instability and lack of sensation in the RD feet.He has followed for care of this pain through [facility] who have provided [place] 5-325mg BID with good relief as well as trialed gabapentin and pregabalin with poor tolerance and brain fog as well as amitriptyline with minimal relief. He also continues with outside PT with good relief through [facility].As [facility] is closing, he is looking for another clinic to take over his Rx medication management.We discussed a multidisciplinary approach to pain management, and we discussed the use of injections and SCS for continued pain management. I recommend trialling SCS, though he would like to hold on any interventions for pain management. I prescribed [place] 5-325mg BID, and as his Rx is a low and stable dose for more than 1 year, he does not overuse, does not request early refills, and is low risk per ORT, I recommend that this is appropriate for his PCP to take over with support from ISAIAH and BEREKETT obtained in clinic today. assessment Body mass index [BMI] 27.0-27.9, adult Mental Status Date Cognitive Assessment Orientation - [place] ed to time, place, person, situation. Patient Care Teams Name Effective Dates (start - stop) Status Members No Information
--- OUTSIDE RECORDS SUMMARY | 2024-09-28 05:30 | XMS_ITS | Continuity of Care Document ---
Author Organization [facility] Address [address] [facility] [address] [place] [address] Phone Care Team Providers Care Air Control Electronics Operator Name Role Phone Dre Benson MD Unavailable [...] Amphetamine 13:44:00 0 ng/mL <100 Final Performed by:[facility] [place] ([facility]) Methamphetamine 13:44:00 0 ng/mL <300 Final Performed by:[facility] [place] ([facility]) 7-Aminoclonazepam 13:44:00 0 ng/mL <50 Final Performed by:[facility] [place] ([facility]) Alpha-Hydroxyalpraz olam 13:44:00 0 ng/mL <50 Final Performed by:[facility] [place] ([facility]) Lorazepam 13:44:00 0 ng/mL <50 Final Performed by:[facility] [place] ([facility]) Nordiazepam 13:44:00 0 ng/mL <50 Final Performed by:[facility] [place] Oxazepam 13:44:00 0 ng/mL <25 Final Performed by:[facility] [place] Temazepam 13:44:00 0 ng/mL <50 Final Performed by:[facility] [place] Buprenorphine 13:44:00 0 ng/mL <10 Final Performed by:[facility] [place] ([facility]) Norbuprenorphine 13:44:00 0 ng/mL <20 Final Performed by:[facility] [place]) Benzoylecgonine (SEBASTIEN Metabolite) 13:44:00 0 ng/mL <50 Final Performed by:[facility] [place]) Fentanyl 13:44:00 0 ng/mL <1 Final Performed by:[facility] [place]) Norfentanyl 13:44:00 0 ng/mL <4 Final Performed by:[facility] [place]) Gabapentin 13:44:00 0 ng/mL <500 Final Performed by:[facility] [place] 6-acetylmorphine 13:44:00 0 ng/mL <10 Final Performed by:[facility] [place] Ketamine 13:44:00 0 ng/mL <50 Final Performed by:[facility] [place]) EDDP 13:44:00 0 ng/mL <50 Final Performed by:[facility] [place]) Methadone 13:44:00 0 ng/mL <100 Final Performed by:[facility] [place]) MDA 13:44:00 0 ng/mL <100 Final Performed by:[facility] [place] ([facility]) MDMA (Ecstacy) 13:44:00 0 ng/mL <100 Final Performed by:[facility] [place]) Methylphenidate 13:44:00 0 ng/mL <50 Final Performed by:[facility] [place]) Codeine 13:44:00 0 ng/mL <50 Final Performed by:[facility] [place]) Hydrocodone 13:44:00 297 ng/mL <50 H Final Performed by:[facility] [place]) Hydromorphone 13:44:00 84 ng/mL <50 H Final Performed by:[facility] [place]) Morphine 13:44:00 0 ng/mL <50 Final Performed by:[facility] [place]) Norhydrocodone 13:44:00 307 ng/mL <50 H Final Performed by:[facility] [place]) Naloxone 13:44:00 0 ng/mL <20 Final Performed by:[facility] [place] ([facility]) Oxycodone 13:44:00 0 ng/mL <50 Final Performed by:[facility] [place] ([facility]) Oxymorphone 13:44:00 0 ng/mL <50 Final Performed by:[facility] [place] ([facility]) Noroxycodone 13:44:00 0 ng/mL <50 Final Performed by:[facility] [place] ([facility]) Phencyclidine 13:44:00 0 ng/mL <10 Final Performed by:[facility] [place] ([facility]) Pregabalin 13:44:00 0 ng/mL <200 Final Performed by:[facility] [place]) Carisoprodol 13:44:00 0 ng/mL <50 Final Performed by:[facility] [place] ([facility]) Meprobamate 13:44:00 0 ng/mL <100 Final Performed by:[facility] [place] ([facility]) THC-COOH (Marijuana) 13:44:00 0 ng/mL <50 Final Performed by:[facility] [place]) Zolpidem 13:44:00 0 ng/mL <20 Final Performed by:[facility] [place] ([facility]) Tapentadol 13:44:00 0 ng/mL <25 Final Performed by:[facility] [place] ([facility]) Tramadol 13:44:00 0 ng/mL <50 Final Performed by:[facility] [place] ([facility]) Panel Description: NORCO Final Image UDT Lab Result 1 Panel Description: Point Of Care Testing (with T HC) Final POCT-Opiates neg Final POCT Amphetamine neg ng/mL Final POCT-Methamphetamin e neg Final POCT-Cocaine neg Final POCT-Marijuana neg Final POCT-Creatinine wnl Final POCT-Specific [place] wnl Final Recollection? no Final POCT-Temperature 90 [...] on Encounter New Pt Eval Moderate Hema, [facility], [address], [place], [place], [id number], [place] tel:[phone] [facility] foot pain (chief complaint)s houlder pain (chief complaint) Type II DM w/ diabetic neuropathyBody mass index (BMI) 27.0-27.9, adult 5 Marcelino Erickson. [address], [place], [id number], [place]. tel:[phone] Referring Provider: Dre Benson, [address], [place], [address] . tel:[phone] [facility], [address], [place], [place], [id number], [place] tel:[phone] [facility] No Information 5 Marcelino Erickson. [address], [place], [place], [id number], [place]. tel:[phone] Referring Provider: Dre Benson, [address], [place], [address] . tel:[phone] Family History Family Member Type Diagnosis Age At Onset No Information Payers Payer name Insurance type Covered green party ID Authorgokula titerell(s) Medicare Part B MB [id number] Blue Cross Medicare 16 [id number] Social History Type Description Quantity Date Captured [...] Date Instruction Additional Infor mitch - Prescribed [place] 5 -325mg 2x/day* Discuss this prescription with [...] medication refill as needed in November* Consider [facility] for continued medication only pain management.- Consider [...] followed for care of this pain through [facility] who have provided [place] 5-325mg BID with good relief as well as trialed gabapentin and pregabalin with poor tolerance and brain fog as well as amitriptyline with minimal relief. He also continues with outside PT with good relief through [facility], he is looking for another clinic to take over his Rx medication management.We discussed a multidisciplinary approach to pain management, and we discussed the use of injections and SCS for continued pain management. I recommend trialling SCS, though he would like to hold on any interventions for pain management. I prescribed [place] 5-325mg BID, and as his Rx is [...] Mental Status Date Cognitive Assessment Orientation - [place] ed to time, place, person, situation. Patient Care Teams Name Effective Dates (start - stop) Status Members No Information
--- OUTSIDE RECORDS SUMMARY | 2024-09-28 05:30 | XMS_ITS | Continuity of Care Document ---
Author Organization [facility] Address [address] [place] [address] Phone Care Team Providers Care Washer Engineer Helper Name Role Phone Dre Benson MD Unavailable [...] 13:44:00 0 ng/mL <100 Final Performed by:[facility] [place] ([facility]) Methamphetamine 13:44:00 0 ng/mL <300 Final Performed by:[facility] [place] ([facility]) 7-Aminoclonazepam 13:44:00 0 ng/mL <50 Final Performed by:[facility] [place] ([facility]) Alpha-Hydroxyalpraz olam 13:44:00 0 ng/mL <50 Final Performed by:[facility] [place]) Lorazepam 13:44:00 0 ng/mL <50 Final Performed by:[facility] [place] ([facility]) Nordiazepam 13:44:00 0 ng/mL <50 Final Performed by:[facility] [place] ([facility]) Oxazepam 13:44:00 0 ng/mL <25 Final Performed by:[facility] [place] ([facility]) Temazepam 13:44:00 0 ng/mL <50 Final Performed by:[facility] [place] ([facility]) Buprenorphine 13:44:00 0 ng/mL <10 Final Performed by:[facility] [place] ([facility]) Norbuprenorphine 13:44:00 0 ng/mL <20 Final Performed by:[facility] [place] ([facility]) Benzoylecgonine (SEBASTIEN Metabolite) 13:44:00 0 ng/mL <50 Final Performed by:[facility] [place] ([facility]) Fentanyl 13:44:00 0 ng/mL <1 Final Performed by:[facility] [place] ([facility]) Norfentanyl 13:44:00 0 ng/mL <4 Final Performed by:[facility] [place] ([facility]) Gabapentin 13:44:00 0 ng/mL <500 Final Performed by:[facility] [place] ([facility]) 6-acetylmorphine 13:44:00 0 ng/mL <10 Final Performed by:[facility] [place] [facility]) Ketamine 13:44:00 0 ng/mL <50 Final Performed by:[facility] [place] ([facility]) EDDP 13:44:00 0 ng/mL <50 Final Performed by:[facility] [place] [facility]) Methadone 13:44:00 0 ng/mL <100 Final Performed by:[facility] [place] [facility]) MDA 13:44:00 0 ng/mL <100 Final Performed by:[facility] [place] ([facility]) MDMA (Ecstacy) 13:44:00 0 ng/mL <100 Final Performed by:[facility] [place] ([facility]) Methylphenidate 13:44:00 0 ng/mL <50 Final Performed by:[facility] [place] [facility]) Codeine 13:44:00 0 ng/mL <50 Final Performed by:[facility] [place] [facility]) Hydrocodone 13:44:00 297 ng/mL <50 H Final Performed by:[facility] [place] ([facility]) Hydromorphone 13:44:00 84 ng/mL <50 H Final Performed by:[facility] [place] [facility]) Morphine 13:44:00 0 ng/mL <50 Final Performed by:[facility] [place] [facility]) Norhydrocodone 13:44:00 307 ng/mL <50 H Final Performed by:[facility] [place] ([facility]) Naloxone 13:44:00 0 ng/mL <20 Final Performed by:[facility] [place] ([facility]) Oxycodone 13:44:00 0 ng/mL <50 Final Performed by:[facility] [place] ([facility]) Oxymorphone 13:44:00 0 ng/mL <50 Final Performed by:[facility] [place]) Noroxycodone 13:44:00 0 ng/mL <50 Final Performed by:[facility] [place]) Phencyclidine 13:44:00 0 ng/mL <10 Final Performed by:[facility] [place] ([facility]) Pregabalin 13:44:00 0 ng/mL <200 Final Performed by:[facility] [place] ([facility]) Carisoprodol 13:44:00 0 ng/mL <50 Final Performed by:[facility] [place] ([facility]) Meprobamate 13:44:00 0 ng/mL <100 Final Performed by:[facility] [place] ([facility]) THC-COOH (Marijuana) 13:44:00 0 ng/mL <50 Final Performed by:[facility] [place] ([facility]) Zolpidem 13:44:00 0 ng/mL <20 Final Performed by:[facility] [place] ([facility]) Tapentadol 13:44:00 0 ng/mL <25 Final Performed by:[facility] [place]) Tramadol 13:44:00 0 ng/mL <50 Final Performed by:[facility] [place] ([facility]) Panel Description: NORCO Final Image UDT Lab Result 1 Panel Description: Point Of Care Testing (with T HC) Final POCT-Opiates neg Final POCT Amphetamine neg ng/mL Final POCT-Methamphetamin e neg Final POCT-Cocaine neg Final POCT-Marijuana neg Final POCT-Creatinine wnl Final POCT-Specific [place] wnl Final Recollection? no Final POCT-Temperature 90 [...] on Encounter New Pt Eval Moderate Hema, [facility], [address], [place], [place], [id number], [place] tel:[phone] [facility] foot pain (chief complaint)s houlder pain (chief complaint) Type II DM w/ diabetic neuropathyBody mass index (BMI) 27.0-27.9, adult 5 Marcelino Erickson. [address], [place], [id number], [place]. tel:[phone] Referring Provider: Dre Benson, [address], [place], [address] . tel:[phone] [facility], [address], [place], [place], [id number], [place] tel:[phone] [facility] No Information 5 Marcelino Erickson. [address], [place], [id number], [place]. tel:[phone] Referring Provider: Dre Benson, [address], [place], [address] . tel:[phone] Family History Family Member Type Diagnosis Age At Onset No Information Payers Payer name Insurance type Covered green party ID Authorgokula titerell(s) Medicare Part B MB [id number] Blue Cross Medicare 16 [id number] Social History Type Description Quantity Date Captured [...] Date Instruction Additional Infor mitch - Prescribed [place] 5 -325mg 2x/day* Discuss this prescription with [...] medication refill as needed in November* Consider [facility] for continued medication only pain [...] followed for care of this pain through [facility] who have provided [place] 5-325mg BID with good relief as well as trialed gabapentin and pregabalin with poor tolerance and brain fog as well as amitriptyline with minimal relief. He also continues with outside PT with good relief through [facility].As [facility] is closing, he is looking for another clinic to take over his Rx medication management.We discussed a multidisciplinary approach to pain management, and we discussed the use of injections and SCS for continued pain management. I recommend trialling SCS, though he would like to hold on any interventions for pain management. I prescribed [place] 5-325mg BID, and as his Rx is [...] Mental Status Date Cognitive Assessment Orientation - [place] ed to time, place, person, situation. Patient Care Teams Name Effective Dates (start - stop) Status Members No Information
--- OUTSIDE RECORDS SUMMARY | 2024-09-28 05:30 | XMS_ITS | Continuity of Care Document ---
Author Organization [facility] Address [address] [place] [address] Phone Care Team Providers Care Piping Design Specialist Name Role Phone Dre Benson MD Unavailable [...] 13:44:00 0 ng/mL <100 Final Performed by:[facility] [place] ([facility]) Methamphetamine 13:44:00 0 ng/mL <300 Final Performed by:[facility] [place] ([facility]) 7-Aminoclonazepam 13:44:00 0 ng/mL <50 Final Performed by:[facility] [place]) Alpha-Hydroxyalpraz olam 13:44:00 0 ng/mL <50 Final Performed by:[facility] [place]) Lorazepam 13:44:00 0 ng/mL <50 Final Performed by:[facility] [place]) Nordiazepam 13:44:00 0 ng/mL <50 Final Performed by:[facility] [place] ([facility]) Oxazepam 13:44:00 0 ng/mL <25 Final Performed by:[facility] [place] [facility]) Temazepam 13:44:00 0 ng/mL <50 Final Performed by:[facility] [place] [facility]) Buprenorphine 13:44:00 0 ng/mL <10 Final Performed by:[facility] [place]) Norbuprenorphine 13:44:00 0 ng/mL <20 Final Performed by:[facility] [place]) Benzoylecgonine (SEBASTIEN Metabolite) 13:44:00 0 ng/mL <50 Final Performed by:[facility] [place]) Fentanyl 13:44:00 0 ng/mL <1 Final Performed by:[facility] [place]) Norfentanyl 13:44:00 0 ng/mL <4 Final Performed by:[facility] [place]) Gabapentin 13:44:00 0 ng/mL <500 Final Performed by:[facility] [place]) 6-acetylmorphine 13:44:00 0 ng/mL <10 Final Performed by:[facility] [place]) Ketamine 13:44:00 0 ng/mL <50 Final Performed by:[facility] [place]) EDDP 13:44:00 0 ng/mL <50 Final Performed by:[facility] [place]) Methadone 13:44:00 0 ng/mL <100 Final Performed by:[facility] [place]) MDA 13:44:00 0 ng/mL <100 Final Performed by:[facility] [place] MDMA (Ecstacy) 13:44:00 0 ng/mL <100 Final Performed by:[facility] [place]) Methylphenidate 13:44:00 0 ng/mL <50 Final Performed by:[facility] [place]) Codeine 13:44:00 0 ng/mL <50 Final Performed by:[facility] [place]) Hydrocodone 13:44:00 297 ng/mL <50 H Final Performed by:[facility] [place]) Hydromorphone 13:44:00 84 ng/mL <50 H Final Performed by:[facility] [place]) Morphine 13:44:00 0 ng/mL <50 Final Performed by:[facility] [place]) Norhydrocodone 13:44:00 307 ng/mL <50 H Final Performed by:[facility] [place]) Naloxone 13:44:00 0 ng/mL <20 Final Performed by:[facility] [place] ([facility]) Oxycodone 13:44:00 0 ng/mL <50 Final Performed by:[facility] [place]) Oxymorphone 13:44:00 0 ng/mL <50 Final Performed by:[facility] [place]) Noroxycodone 13:44:00 0 ng/mL <50 Final Performed by:[facility] [place]) Phencyclidine 13:44:00 0 ng/mL <10 Final Performed by:[facility] [place]) Pregabalin 13:44:00 0 ng/mL <200 Final Performed by:[facility] [place] ([facility]) Carisoprodol 13:44:00 0 ng/mL <50 Final Performed by:[facility] [place]) Meprobamate 13:44:00 0 ng/mL <100 Final Performed by:[facility] [place]) THC-COOH (Marijuana) 13:44:00 0 ng/mL <50 Final Performed by:[facility] [place] ([facility]) Zolpidem 13:44:00 0 ng/mL <20 Final Performed by:[facility] [place]) Tapentadol 13:44:00 0 ng/mL <25 Final Performed by:[facility] [place]) Tramadol 13:44:00 0 ng/mL <50 Final Performed by:[facility] [place]) Panel Description: NORCO Final Image UDT Lab Result 1 Panel Description: Point Of Care Testing (with T HC) Final POCT-Opiates neg Final POCT Amphetamine neg ng/mL Final POCT-Methamphetamin e neg Final POCT-Cocaine neg Final POCT-Marijuana neg Final POCT-Creatinine wnl Final POCT-Specific [place] wnl Final Recollection? no Final POCT-Temperature 90 [...] Encounter New Pt Eval Moderate Hema, [facility], [address], [place], [place], [id number], [place] tel:[phone] [facility] foot pain (chief complaint)s houlder pain (chief complaint) Type II DM w/ diabetic neuropathyBody mass index (BMI) 27.0-27.9, adult 5 Marcelino Erickson. [address], [facility] [place], [id number], [place]. tel:[phone] Referring Provider: Dre Benson, [address], [place], [address] . tel:[phone] [facility], [address], [place], [place], [address], [place] tel:[phone] [facility] No Information 5 Marcelino Erickson. [address], [place], [place], [address], [place]. tel:[phone] Referring Provider: Dre Benson, [address], [place], [address] . tel:[phone] Family History Family Member Type Diagnosis Age At Onset No Information Payers Payer name Insurance type Covered constitution party ID Authorgokula titerell(s) Medicare Part B MB [id number] Blue Cross Medicare 14 [id number] Social History Type Description Quantity Date Captured [...] Date Instruction Additional Infor mitch - Prescribed [place] 5 -325mg 2x/day* Discuss this prescription with [...] medication refill as needed in November* Consider [facility] for continued medication only pain management.- [...] followed for care of this pain through [facility] who have provided [place] 5-325mg BID with good relief as well as trialed gabapentin and pregabalin with poor tolerance and brain fog as well as amitriptyline with minimal relief. He also continues with outside PT with good relief through [facility].As [facility] is closing, he is looking for another clinic to take over his Rx medication management.We discussed a multidisciplinary approach to pain management, and we discussed the use of injections and SCS for continued pain management. I recommend trialling SCS, though he would like to hold on any interventions for pain management. I prescribed [place] 5-325mg BID, and as his Rx is [...] Mental Status Date Cognitive Assessment Orientation - [place] ed to time, place, person, situation. Patient Care Teams Name Effective Dates (start - stop) Status Members No Information
--- OUTSIDE RECORDS SUMMARY | 2024-09-28 05:30 | XMS_ITS | Continuity of Care Document ---
Author Organization Hema [facility] Address [address] [place] [address] Phone Care Team Providers Care Search Engine Optimization Analyst Name Role Phone Dre Benson MD Unavailable [...] Amphetamine 13:44:00 0 ng/mL <100 Final Performed by:[facility] [place] ([facility]) Methamphetamine 13:44:00 0 ng/mL <300 Final Performed by:[facility] [place] ([facility]) 7-Aminoclonazepam 13:44:00 0 ng/mL <50 Final Performed by:[facility] [place] ([facility]) Alpha-Hydroxyalpraz olam 13:44:00 0 ng/mL <50 Final Performed by:[facility] [place] ([facility]) Lorazepam 13:44:00 0 ng/mL <50 Final Performed by:[facility] [place] ([facility]) Nordiazepam 13:44:00 0 ng/mL <50 Final Performed by:[facility] [place] ([facility]) Oxazepam 13:44:00 0 ng/mL <25 Final Performed by:[facility] [place] ([facility]) Temazepam 13:44:00 0 ng/mL <50 Final Performed by:[facility] [place] ([facility]) Buprenorphine 13:44:00 0 ng/mL <10 Final Performed by:[facility] [place] ([facility]) Norbuprenorphine 13:44:00 0 ng/mL <20 Final Performed by:[facility] [place] ([facility]) Benzoylecgonine (SEBASTIEN Metabolite) 13:44:00 0 ng/mL <50 Final Performed by:[facility] [place] ([facility]) Fentanyl 13:44:00 0 ng/mL <1 Final Performed by:[facility] [place] ([facility]) Norfentanyl 13:44:00 0 ng/mL <4 Final Performed by:[facility] [place] ([facility]) Gabapentin 13:44:00 0 ng/mL <500 Final Performed by:[facility] [place] ([facility]) 6-acetylmorphine 13:44:00 0 ng/mL <10 Final Performed by:[facility] [place] ([facility]) Ketamine 13:44:00 0 ng/mL <50 Final Performed by:[facility] [place] ([facility]) EDDP 13:44:00 0 ng/mL <50 Final Performed by:[facility] [place] ([facility]) Methadone 13:44:00 0 ng/mL <100 Final Performed by:[facility] [place] ([facility]) MDA 13:44:00 0 ng/mL <100 Final Performed by:[facility] [place] ([facility]) MDMA (Ecstacy) 13:44:00 0 ng/mL <100 Final Performed by:[facility] [place] ([facility]) Methylphenidate 13:44:00 0 ng/mL <50 Final Performed by:[facility] [place] ([facility]) Codeine 13:44:00 0 ng/mL <50 Final Performed by:[facility] [place] ([facility]) Hydrocodone 13:44:00 297 ng/mL <50 H Final Performed by:[facility] [place] ([facility]) Hydromorphone 13:44:00 84 ng/mL <50 H Final Performed by:[facility] [place] ([facility]) Morphine 13:44:00 0 ng/mL <50 Final Performed by:[facility] [place] ([facility]) Norhydrocodone 13:44:00 307 ng/mL <50 H Final Performed by:[facility] [place] ([facility]) Naloxone 13:44:00 0 ng/mL <20 Final Performed by:[facility] [place] ([facility]) Oxycodone 13:44:00 0 ng/mL <50 Final Performed by:[facility] [place] ([facility]) Oxymorphone 13:44:00 0 ng/mL <50 Final Performed by:[facility] [place] ([facility]) Noroxycodone 13:44:00 0 ng/mL <50 Final Performed by:[facility] [place] ([facility]) Phencyclidine 13:44:00 0 ng/mL <10 Final Performed by:[facility] [place] ([facility]) Pregabalin 13:44:00 0 ng/mL <200 Final Performed by:[facility] [place] ([facility]) Carisoprodol 13:44:00 0 ng/mL <50 Final Performed by:[facility] [place] ([facility]) Meprobamate 13:44:00 0 ng/mL <100 Final Performed by:[facility] [place] ([facility]) THC-COOH (Marijuana) 13:44:00 0 ng/mL <50 Final Performed by:[facility] [place] ([facility]) Zolpidem 13:44:00 0 ng/mL <20 Final Performed by:[facility] [place] ([facility]) Tapentadol 13:44:00 0 ng/mL <25 Final Performed by:[facility] [place] ([facility]) Tramadol 13:44:00 0 ng/mL <50 Final Performed by:[facility] [place] ([facility]) Panel Description: NORCO Final Image UDT Lab Result 1 Panel Description: Point Of Care Testing (with T HC) Final POCT-Opiates neg Final POCT Amphetamine neg ng/mL Final POCT-Methamphetamin e neg Final POCT-Cocaine neg Final POCT-Marijuana neg Final POCT-Creatinine wnl Final POCT-Specific [place] wnl Final Recollection? no Final POCT-Temperature 90 [...] on Encounter New Pt Eval Moderate Hema, [facility], [address], [place], [place], [id number], [place] tel:[phone] [facility] foot pain (chief complaint)s houlder pain (chief complaint) Type II DM w/ diabetic neuropathyBody mass index (BMI) 27.0-27.9, adult 5 Marcelino Erickson. [address], [place], [id number], [place]. tel:[phone] Referring Provider: Dre Benson, [address], [place], [address] . tel:[phone] Hema [facility], [address], [place], [place], [id number], [place] tel:[phone] Hema [facility] No Information 5 Marcelino Erickson. [address], [place], [place], [address], [place]. tel:[phone] Referring Provider: Dre Benson, [address], [place], [address] . tel:[phone] Family History Family Member Type Diagnosis Age At Onset No Information Payers Payer name Insurance type Covered alliance party ID Authorgokula titerell(s) Medicare Part B MB [id number] Blue Cross Medicare 16 [id number] Social History Type Description Quantity Date Captured [...] Date Instruction Additional Infor mitch - Prescribed Wilson 5 -325mg 2x/day* Discuss this prescription with your primary care provider, [facility] recommends that they take over this prescription as it is a low and stable dose for more than 1 year, you do not ask for early refills, and you do not overuse medication. Your primary can reach out to [facility] to discuss this as needed.- Follow up with nurse practitioner or PA for medication refill as needed in November* Consider [facility] for continued medication only pain management.- [...] followed for care of this pain through [facility] who have provided Wilson 5-325mg BID with good relief as well as trialed gabapentin and pregabalin with poor tolerance and brain fog as well as amitriptyline with minimal relief. He also continues with outside PT with good relief through [facility].As [facility] is closing, he is looking for another clinic to take over his Rx medication management.We discussed a multidisciplinary approach to pain management, and we discussed the use of injections and SCS for continued pain management. I recommend trialling SCS, though he would like to hold on any interventions for pain management. I prescribed Wilson 5-325mg BID, and as his Rx is [...] Mental Status Date Cognitive Assessment Orientation - [place] ed to time, place, person, situation. Patient Care Teams Name Effective Dates (start - stop) Status Members No Information
--- OUTSIDE RECORDS SUMMARY | 2024-09-28 05:30 | XMS_ITS | Continuity of Care Document ---
Author Organization Hema [facility] Address [address] [place] [address] Phone Care Team Providers Care Weed Inspector Name Role Phone Dre Benson MD Unavailable [...] 13:44:00 0 ng/mL <100 Final Performed by:[facility] [place] ([facility]) Methamphetamine 13:44:00 0 ng/mL <300 Final Performed by:[facility] [place] ([facility]) 7-Aminoclonazepam 13:44:00 0 ng/mL <50 Final Performed by:[facility] [place] ([facility]) Alpha-Hydroxyalpraz olam 13:44:00 0 ng/mL <50 Final Performed by:[facility] [place] ([facility]) Lorazepam 13:44:00 0 ng/mL <50 Final Performed by:[facility] [place] ([facility]) Nordiazepam 13:44:00 0 ng/mL <50 Final Performed by:[facility] [place] ([facility]) Oxazepam 13:44:00 0 ng/mL <25 Final Performed by:[facility] [place] ([facility]) Temazepam 13:44:00 0 ng/mL <50 Final Performed by:[facility] [place] ([facility]) Buprenorphine 13:44:00 0 ng/mL <10 Final Performed by:[facility] [place] ([facility]) Norbuprenorphine 13:44:00 0 ng/mL <20 Final Performed by:[facility] [place] ([facility]) Benzoylecgonine (SEBASTIEN Metabolite) 13:44:00 0 ng/mL <50 Final Performed by:[facility] [place] ([facility]) Fentanyl 13:44:00 0 ng/mL <1 Final Performed by:[facility] [place] ([facility]) Norfentanyl 13:44:00 0 ng/mL <4 Final Performed by:[facility] [place] ([facility]) Gabapentin 13:44:00 0 ng/mL <500 Final Performed by:[facility] [place] ([facility]) 6-acetylmorphine 13:44:00 0 ng/mL <10 Final Performed by:[facility] [place] ([facility]) Ketamine 13:44:00 0 ng/mL <50 Final Performed by:[facility] [place] ([facility]) EDDP 13:44:00 0 ng/mL <50 Final Performed by:[facility] [place] ([facility]) Methadone 13:44:00 0 ng/mL <100 Final Performed by:[facility] [place] ([facility]) MDA 13:44:00 0 ng/mL <100 Final Performed by:[facility] [place] ([facility]) MDMA (Ecstacy) 13:44:00 0 ng/mL <100 Final Performed by:[facility] [place] ([facility]) Methylphenidate 13:44:00 0 ng/mL <50 Final Performed by:[facility] [place] ([facility]) Codeine 13:44:00 0 ng/mL <50 Final Performed by:[facility] [place] ([facility]) Hydrocodone 13:44:00 297 ng/mL <50 H Final Performed by:[facility] [place] ([facility]) Hydromorphone 13:44:00 84 ng/mL <50 H Final Performed by:[facility] [place] ([facility]) Morphine 13:44:00 0 ng/mL <50 Final Performed by:[facility] [place] ([facility]) Norhydrocodone 13:44:00 307 ng/mL <50 H Final Performed by:[facility] [place] ([facility]) Naloxone 13:44:00 0 ng/mL <20 Final Performed by:[facility] [place] ([facility]) Oxycodone 13:44:00 0 ng/mL <50 Final Performed by:[facility] [place] ([facility]) Oxymorphone 13:44:00 0 ng/mL <50 Final Performed by:[facility] [place] ([facility]) Noroxycodone 13:44:00 0 ng/mL <50 Final Performed by:[facility] [place] ([facility]) Phencyclidine 13:44:00 0 ng/mL <10 Final Performed by:[facility] [place] ([facility]) Pregabalin 13:44:00 0 ng/mL <200 Final Performed by:[facility] [place] ([facility]) Carisoprodol 13:44:00 0 ng/mL <50 Final Performed by:[facility] [place] ([facility]) Meprobamate 13:44:00 0 ng/mL <100 Final Performed by:[facility] [place] ([facility]) THC-COOH (Marijuana) 13:44:00 0 ng/mL <50 Final Performed by:[facility] [place] ([facility]) Zolpidem 13:44:00 0 ng/mL <20 Final Performed by:[facility] [place] ([facility]) Tapentadol 13:44:00 0 ng/mL <25 Final Performed by:[facility] [place] ([facility]) Tramadol 13:44:00 0 ng/mL <50 Final Performed by:[facility] [place] ([facility]) Panel Description: NORCO Final Image UDT Lab Result 1 Panel Description: Point Of Care Testing (with T HC) Final POCT-Opiates neg Final POCT Amphetamine neg ng/mL Final POCT-Methamphetamin e neg Final POCT-Cocaine neg Final POCT-Marijuana neg Final POCT-Creatinine wnl Final POCT-Specific [place] wnl Final Recollection? no Final POCT-Temperature 90 [...] on Encounter New Pt Eval Moderate Hema, [facility], [address], [place], [place], [id number], [place] tel:[phone] [facility] foot pain (chief complaint)s houlder pain (chief complaint) Type II DM w/ diabetic neuropathyBody mass index (BMI) 27.0-27.9, adult 5 Marcelino Erickson. [address], [place], [address], [place]. tel:[phone] Referring Provider: Dre Benson, [address], [place], [address] . tel:[phone] Hema [facility], [address], [place], [place], [id number], [place] tel:[phone] Hema [facility] No Information 5 Marcelino Erickson. [address], [place], [place], [address], [place]. tel:[phone] Referring Provider: Dre Benson, [address], [place], [address] . tel:[phone] Family History Family Member Type Diagnosis Age At Onset No Information Payers Payer name Insurance type Covered libertarian ID Authorgokula titerell(s) Medicare Part B MB [id number] Blue Cross Medicare 16 [id number] Social History Type Description Quantity Date Captured [...] Date Instruction Additional Infor mitch - Prescribed [place] 5 -325mg 2x/day* Discuss this prescription with [...] medication refill as needed in November* Consider [facility] for continued medication only pain [...] followed for care of this pain through [facility] who have provided [place] 5-325mg BID with good relief as well as trialed gabapentin and pregabalin with poor tolerance and brain fog as well as amitriptyline with minimal relief. He also continues with outside PT with good relief through [facility].As [facility] is closing, he is looking for another clinic to take over his Rx medication management.We discussed a multidisciplinary approach to pain management, and we discussed the use of injections and SCS for continued pain management. I recommend trialling SCS, though he would like to hold on any interventions for pain management. I prescribed [place] 5-325mg BID, and as his Rx is [...] Mental Status Date Cognitive Assessment Orientation - [place] ed to time, place, person, situation. Patient Care Teams Name Effective Dates (start - stop) Status Members No Information
--- OUTSIDE RECORDS SUMMARY | 2024-09-28 05:30 | XMS_ITS | Continuity of Care Document ---
Author Organization Hema [facility] Address [address] [place] [address] Phone Care Team Providers Care Blast Furnace Checker Name Role Phone Dre Benson MD Unavailable [...] by:[facility] [place] ([facility]) Oxazepam 13:44:00 0 ng/mL <25 Final Performed by:[facility] [place] ([facility]) Temazepam 13:44:00 0 ng/mL <50 Final Performed by:[facility] [place] ([facility]) Buprenorphine [...] [facility] [place] ([facility]) Oxycodone 13:44:00 0 ng/mL <50 Final Performed by:[facility] [place] ([facility]) Oxymorphone 13:44:00 0 ng/mL <50 Final Performed by:[facility] [place] ([facility]) Noroxycodone 13:44:00 0 ng/mL <50 Final Performed by:[facility] [place] ([facility]) Phencyclidine 13:44:00 0 ng/mL <10 Final Performed by:[facility] [place] ([facility]) Pregabalin 13:44:00 0 ng/mL <200 Final Performed by:[facility] [place] ([facility]) Carisoprodol 13:44:00 0 ng/mL <50 Final Performed by:[facility] [place] ([facility]) Meprobamate 13:44:00 0 ng/mL <100 Final Performed by:[facility] [place] ([facility]) THC-COOH (Marijuana) 13:44:00 0 ng/mL <50 Final Performed by:[facility] [place] ([facility]) Zolpidem 13:44:00 0 ng/mL <20 Final Performed by:[facility] [place] ([facility]) Tapentadol 13:44:00 0 ng/mL <25 Final Performed by:[facility] [place] ([facility]) Tramadol 13:44:00 0 ng/mL <50 Final Performed by:[facility] [place] ([facility]) Panel Description: NORCO Final Image UDT Lab Result 1 Panel Description: Point Of Care Testing (with T HC) Final POCT-Opiates neg Final POCT Amphetamine neg ng/mL Final POCT-Methamphetamin e neg Final POCT-Cocaine neg Final POCT-Marijuana neg Final POCT-Creatinine wnl Final POCT-Specific [place] wnl Final Recollection? no Final POCT-Temperature 90 [...] on Encounter New Pt Eval Moderate Hema, [facility], [address], [place], [place], [id number], [place] tel:[phone] [facility] foot pain (chief complaint)s houlder pain (chief complaint) Type II DM w/ diabetic neuropathyBody mass index (BMI) 27.0-27.9, adult 5 Marcelino Erickson. [address], [place], [address], [place]. tel:[phone] Referring Provider: Dre Benson, [address], [place], [address] . tel:[phone] Hema [facility], [address], [place], [place], [address], [place] tel:[phone] Hema [facility] No Information 5 Marcelino Erickson. [address], [place], [place], [address], [place]. tel:[phone] Referring Provider: Dre Benson, [address], [place], [address] . tel:[phone] Family History Family Member Type Diagnosis Age At Onset No Information Payers Payer name Insurance type Covered constitution party ID Authorgokula titerell(s) Medicare Part B MB [id number] Blue Cross Medicare 16 [id number] Social History Type Description Quantity Date Captured [...] Date Instruction Additional Infor mitch - Prescribed [place] 5 -325mg 2x/day* Discuss this prescription with [...] medication refill as needed in November* Consider [facility] for continued medication only pain [...] followed for care of this pain through [facility] who have provided [place] 5-325mg BID with good relief as well as trialed gabapentin and pregabalin with poor tolerance and brain fog as well as amitriptyline with minimal relief. He also continues with outside PT with good relief through [facility].As [facility] is closing, he is looking for another clinic to take over his Rx medication management.We discussed a multidisciplinary approach to pain management, and we discussed the use of injections and SCS for continued pain management. I recommend trialling SCS, though he would like to hold on any interventions for pain management. I prescribed [place] 5-325mg BID, and as his Rx is [...] Mental Status Date Cognitive Assessment Orientation - [place] ed to time, place, person, situation. Patient Care Teams Name Effective Dates (start - stop) Status Members No Information
[2025-01-12] VITALS (28 sets, daily range): BP systolic 117–184; BP diastolic 73–98; PULSE 89–129; RESP 12–40; TEMP 35.9–36.8; O2SAT 92–96; BMI 26.1; BMI 23.6
--- NOTE | 2025-01-12 13:51 | ED.GENADULT ---
HPI - General Adult General Time Seen by Provider: 13:51 Date Seen: 01/12/25 Chief complaint: Weakness Stated complaint: weakness Time Seen by Provider: 01/12/25 13:49 Source: patient Mode of arrival: EMS Limitations: physical limitation History of Present Illness HPI narrative: Chato is a 69-year-old male with previous CVA, chronic kidney disease stage 3b, gout, hypertension, hyperlipidemia, non-insulin dependent diabetes mellitus presents to the ED via EMS from home with generalized weakness. Patient states over the last 3 days he has had generalized weakness, patient has not had any fevers or chills, he has had a nonproductive cough, denies any chest pain or shortness of breath. Patient felt his blood sugars have been riding higher >500 today, denies any nausea vomiting, no abdominal pain, denies any urinary complaints or diarrhea.. He had a primary care provider visit today, when he got up to get to the car he was walking in the garage with his any passed out, was able to grab hold of him. No known injury. Patient complains of no pain at this time. He was unable to get off the the ground in the garage EMS was called to get him up. Related Data Home Medications ?Medication ?Instructions ?Recorded ?Confirmed allopurinol 100 mg tablet 100 mg PO DAILY 11/19/23 01/12/25 amitriptyline 10 mg tablet 10 mg PO HS 11/19/23 01/12/25 amlodipine 10 mg tablet 10 mg PO DAILY 11/19/23 01/12/25 atorvastatin 80 mg tablet 80 mg PO QPM 11/19/23 01/12/25 glipizide 10 mg tablet, extended 20 mg PO DAILY 11/19/23 01/12/25 release 24 hr hydrocodone 5 mg-acetaminophen 325 1 tab PO BID PRN pain 11/19/23 01/12/25 mg tablet lisinopril 20 mg tablet 30 mg PO DAILY 11/19/23 01/12/25 metformin 1,000 mg tablet 500 mg PO BID 11/19/23 01/12/25 naloxone 4 mg/actuation nasal spray 1 spray intranasal .PRN PRN 11/19/23 01/12/25 semaglutide 2 mg/dose (8 mg/3 mL) 2 mg subcut .WEEKLY 09/25/24 09/25/24 subcutaneous pen injector (Ozempic) sennosides 8.6 mg-docusate sodium 2 tab-cap PO BID PRN 11/19/23 11/19/23 50 mg tablet (Stimulant Laxative Plus) apixaban 5 mg tablet (Eliquis) 5 mg PO BID 01/12/25 01/12/25 Allergies Allergy/AdvReac Type Severity Reaction Status Date / Time No Known Drug Allergies Allergy Verified 01/12/25 14:03 Review of Systems Status of ROS: Reports: 10 or more systems reviewed and unremarkable except as noted in History and below [facility] Medical History (Updated 01/12/25 @ 17:50 by Eyad Garcia MD) Right sided weakness ?R53.1 - Weakness (ICD-10) Stroke ?I63.9 - Cerebral infarction, unspecified (ICD-10) Tobacco use ?Z72.0 - Tobacco use (ICD-10) Peripheral neuropathy ?G62.9 - Polyneuropathy, unspecified (ICD-10) Essential hypertension ?I10 - Essential (primary) hypertension (ICD-10) Abdominal aneurysm ?I71.40 - Abdominal aortic aneurysm, without rupture, unspecified (ICD-10) Squamous cell carcinoma of lung, stage I ?C34.90 - Malignant neoplasm of unspecified part of unspecified bronchus or lung (ICD-10) CKD stage 3b, GFR 30-44 ml/min ?N18.32 - Chronic kidney disease, stage 3b (ICD-10) Non-insulin dependent diabetes mellitus Surgical History (Updated 11/19/23 @ 15:40 by Zenobia Mccartney MD) H/O total hip arthroplasty ?Z96.649 - Presence of unspecified artificial hip joint (ICD-10) S/P bronchoscopy with biopsy ?Z98.890 - Other specified postprocedural states (ICD-10) Social History (Updated 11/19/23 @ 16:01 by Zenobia Mccartney MD) Narrative: Delaney would be medical decision maker if needed. Requests DNR/DNI status. Retired, smokes 15-20 cigarettes/day. No concerning ETOH use. What is your current living situation?: I presently have a place to live Problems where you live: no known problems Problems where you live details: none In the past 12 months, utilities in danger of being shut off: no In past 12 months, lack of transportation kept you from medical appts, meetings, work, or getting things needed for daily living: no In the past 12 mos, have been you worried that your food would run out before you had money to buy more?: never true In the past 12 mos, the food you bought just didn't last and you didn't have money to buy more?: never true Highest level of school completed/degree received: high school graduate Smoking Status: Current every day smoker What tobacco products do you use: cigarettes Smoking packs per day: 1 Smoking cigarettes per day: 20.0 Years smoked: 50 Smoking pack-years: 50.00 Do you use any of these nicotine containing products: None Second hand tobacco smoke exposure: Yes How often do you have a drink containing alcohol: 2-4 times a month Alcohol type: hard liquor How many standard drinks containing alcohol do you have on a typical day: 1 or 2 How often do you have six or more drinks on one occasion: Never AUDIT-C Alcohol total score: 2 Non-prescribed substance use: denies use Caffeine: Yes (2 cups) How often does anyone, including family, friends and others, physically hurt you: never How often does anyone, including family, friends and others, insult or talk down to you: never How often does anyone, including family, friends and others, threaten you with harm: never How often does anyone, including family, friends and others, scream or curse at you: never service: No Exam Narrative: Exam Narrative: General: No obvious distress sitting comfortably, head is atraumatic HEENT: Tympanic membranes within normal limits bilaterally Pupils equal round reactive to light, extraocular muscles intact Neck: Nontender cervical spine, full range of motion Lungs: Diminished breath sounds bilaterally Heart: Normal sinus rhythm, S1-S2 Abdomen: Soft nontender, bowel sounds present Muscle skeletal: +5 strength upper lower extremities Back is atraumatic, nontender the thoracic to lumbar spine Active extension and flexion of the hips bilaterally No lower extremity edema GCS 15, alert to person place and time Const: Vital Signs, click to edit/add: Vital Signs - 24 hr 01/12/25 13:57 01/12/25 14:02 01/12/25 15:07 Temperature 97.6 F Pulse Rate 118 H Pulse Rate [Pulse Oximeter] 114 H Pulse Rate [orthos tatic lying Left P ulse Oximeter] 105 H Pulse Rate [orthos tatic sitting Left Pulse Oximeter] 114 H Respiratory Rate 16 20 Blood Pressure 128/80 Blood Pressure [Ri ght Upper Arm] 117/82 Blood Pressure [or thostatic lying Ri ght Arm] 123/73 Blood Pressure [or thostatic sitting Right Arm] 117/82 Pulse Oximetry 93 96 Oxygen Delivery Me thod Room Air 01/12/25 15:07 01/12/25 15:15 01/12/25 15:30 Temperature Pulse Rate Pulse Rate [Pulse Oximeter] Pulse Rate [orthos tatic lying Left P ulse Oximeter] Pulse Rate [orthos tatic sitting Left Pulse Oximeter] Respiratory Rate 40 H 27 H 25 H Blood Pressure Blood Pressure [Ri ght Upper Arm] Blood Pressure [or thostatic lying Ri ght Arm] Blood Pressure [or thostatic sitting Right Arm] Pulse Oximetry Oxygen Delivery Me thod 01/12/25 15:32 01/12/25 15:45 01/12/25 16:00 Temperature Pulse Rate Pulse Rate [Pulse Oximeter] Pulse Rate [orthos tatic lying Left P ulse Oximeter] Pulse Rate [orthos tatic sitting Left Pulse Oximeter] Respiratory Rate 31 H 29 H 27 H Blood Pressure 126/77 Blood Pressure [Ri ght Upper Arm] Blood Pressure [or thostatic lying Ri ght Arm] Blood Pressure [or thostatic sitting Right Arm] Pulse Oximetry Oxygen Delivery Me thod 01/12/25 16:01 01/12/25 16:15 01/12/25 16:30 Temperature Pulse Rate 100 96 Pulse Rate [Pulse Oximeter] Pulse Rate [orthos tatic lying Left P ulse Oximeter] Pulse Rate [orthos tatic sitting Left Pulse Oximeter] Respiratory Rate 21 12 25 H Blood Pressure 134/79 Blood Pressure [Ri ght Upper Arm] Blood Pressure [or thostatic lying Ri ght Arm] Blood Pressure [or thostatic sitting Right Arm] Pulse Oximetry 93 92 Oxygen Delivery Me thod 01/12/25 16:32 01/12/25 16:33 01/12/25 16:45 Temperature Pulse Rate 89 101 H Pulse Rate [Pulse Oximeter] Pulse Rate [orthos tatic lying Left P ulse Oximeter] Pulse Rate [orthos tatic sitting Left Pulse Oximeter] Respiratory Rate 24 30 H 31 H Blood Pressure 144/84 H Blood Pressure [Ri ght Upper Arm] Blood Pressure [or thostatic lying Ri ght Arm] Blood Pressure [or thostatic sitting Right Arm] Pulse Oximetry 93 92 Oxygen Delivery Me thod Room Air 01/12/25 17:00 01/12/25 17:01 01/12/25 17:15 Temperature Pulse Rate 111 H 111 H 103 H Pulse Rate [Pulse Oximeter] Pulse Rate [orthos tatic lying Left P ulse Oximeter] Pulse Rate [orthos tatic sitting Left Pulse Oximeter] Respiratory Rate 14 29 H 27 H Blood Pressure 123/83 Blood Pressure [Ri ght Upper Arm] Blood Pressure [or thostatic lying Ri ght Arm] Blood Pressure [or thostatic sitting Right Arm] Pulse Oximetry 93 94 95 Oxygen Delivery Me thod 01/12/25 17:30 01/12/25 17:31 01/12/25 17:45 Temperature Pulse Rate 113 H 116 H 113 H Pulse Rate [Pulse Oximeter] Pulse Rate [orthos tatic lying Left P ulse Oximeter] Pulse Rate [orthos tatic sitting Left Pulse Oximeter] Respiratory Rate 25 H 31 H 25 H Blood Pressure 136/81 Blood Pressure [Ri ght Upper Arm] Blood Pressure [or thostatic lying Ri ght Arm] Blood Pressure [or thostatic sitting Right Arm] Pulse Oximetry 94 92 95 Oxygen Delivery Me thod 01/12/25 18:00 01/12/25 18:05 Temperature Pulse Rate Pulse Rate [Pulse Oximeter] Pulse Rate [orthos tatic lying Left P ulse Oximeter] Pulse Rate [orthos tatic sitting Left Pulse Oximeter] Respiratory Rate 25 H 31 H Blood Pressure Blood Pressure [Ri ght Upper Arm] Blood Pressure [or thostatic lying Ri ght Arm] Blood Pressure [or thostatic sitting Right Arm] Pulse Oximetry Oxygen Delivery Me thod Course Course ED Course: 2:00 PM: aidet performed. Vitals are stable at this time, workup will include IV peripheral, 500 mL bolus 0.9 normal saline, will obtain EKG, point of care troponin,XR chest PA and lateral, CT head without IV contrast based on syncope, fall and on anticoagulation, CBC, lactate, comprehensive metabolic panel, beta hydroxybutyrate, urinalysis and urine culture, COVID influenza RSV nasopharyngeal swab, differential includes DKA, honk, sepsis, UTI, pneumonia, malignancy, less likely ACS, pulmonary embolism or heart failure. ED disposition pending clinical course. Reevaluation(s) Reevaluation #1: Images showed Impression: Left lower lobe opacity may correspond to the patient`s reported left lower lobe mass. Superimposed infection can not be excluded. ECG showed sinus tachycardia, bpm 101, no acute ST changes. CBC showed elevated white count 26 with a left shift, 85.3, sodium 129, potassium 5.2, normal renal function, blood sugar elevated at 509, anion gap within normal limits, HC03 17, patient to receive additional IV fluids 30 mL per kilos for elevated lactate and pneumonia, no receive 2 g IV ceftriaxone, [address] head without IV contrast showed no acute intracranial abnormality. 10 units regular insulin for his blood sugar, VBG showed no metabolic acidosis. 5:00 PM: Repeat lactic need significant improvement after above care given 2.8, repeat blood sugar was 385, no signs of any DKA or HONK, point of care troponin 0.03, patient is feeling better after above care given, was able to speak to Dr. Oh hospitalist on-call she accepts care of the patient to [facility] surgery floor bed. Vital Signs Vital signs: Initial Vital Signs Temperature 97.6 F 01/12/25 13:57 Temperature Source Temporal Artery Scan 01/12/25 13:57 Pulse Rate 114 H 01/12/25 13:57 Respiratory Rate 16 01/12/25 13:57 Blood Pressure 117/82 01/12/25 13:57 Blood Pressure Mean 93 01/12/25 13:57 Pulse Oximetry 93 01/12/25 13:57 Oxygen Delivery Method Room Air 01/12/25 13:57 Vital Signs Temperature 97.6 F 01/12/25 13:57 Pulse Rate 114 H 01/12/25 13:57 Respiratory Rate 16 01/12/25 13:57 Blood Pressure 117/82 01/12/25 13:57 Pulse Oximetry 93 01/12/25 13:57 Oxygen Delivery Method Room Air 01/12/25 13:57 Temperature 97.6 F 01/12/25 13:57 Pulse Rate 113 H 01/12/25 17:45 Respiratory Rate 31 H 01/12/25 18:05 Blood Pressure 136/81 01/12/25 17:31 Pulse Oximetry 95 01/12/25 17:45 Oxygen Delivery Method Room Air 01/12/25 16:32 Medications Administered Medications: Discontinued Medications Generic Name Dose Route Start Last Admin Trade Name Elio PRN Reason Stop Dose Admin Sodium Chloride 500 mls @ 500 mls/hr 01/12/25 14:02 01/12/25 16:03 0.9 % Sodium Chloride 500 Ml IV 01/12/25 15:01 Infused .Q1H GALLITO Infusion Ceftriaxone Sodium 2 gm/ 100 mls @ 200 mls/hr 01/12/25 15:17 01/12/25 17:54 Sodium Chloride IVPB 01/12/25 15:18 Infused ONCE ONE Infusion Doxycycline Hyclate 100 mg/ 100 mls @ 100 mls/hr 01/12/25 15:19 01/12/25 17:00 Sodium Chloride IVPB 01/12/25 15:20 Infused ONCE ONE Infusion Sodium Chloride 1,000 mls @ 1,000 mls/hr 01/12/25 15:23 01/12/25 17:17 0.9 % Sodium Chloride 1000 Ml IV 01/12/25 16:22 Infused .Q1H GALLITO Infusion Sodium Chloride 1,000 mls @ 1,000 mls/hr 01/12/25 15:23 01/12/25 18:01 0.9 % Sodium Chloride 1000 Ml IV 01/12/25 16:22 Infused .Q1H GALLITO Infusion Sodium Chloride 500 mls @ 500 mls/hr 01/12/25 15:24 01/12/25 17:55 0.9 % Sodium Chloride 500 Ml IV 01/12/25 16:23 Not Given .Q1H GALLITO Insulin Human Regular 10 unit 01/12/25 16:51 01/12/25 17:11 Insulin Regular, Human 100 Unit/Ml Vial IVP 01/12/25 16:52 10 unit ONCE ONE Administration Medical Decision Making Lab Data Labs: Lab Results 01/12/25 01/12/25 01/12/25 Range/Units 14:00 14:02 14:25 WBC 26.25 H* (4.50-11.00) K/uL RBC 3.60 L (4.30-5.90) m/uL Hgb 11.2 L (13.5-17.5) gm/dL Hct 33.9 L (37.0-53.0) % MCV 94 (80-100) fL MCH 31 (26-34) pg MCHC 33 (32-36) gm/dL RDW Coeff of Maribel 12.7 (11.5-15.5) % Plt Count 428 (140-440) K/uL Neut % (Auto) 94.0 H (42.0-72.0) % Lymph % (Auto) 1.4 L (20-44) % [place] % (Auto) 3.8 (0.0-11.0) % Eos % (Auto) 0.0 (0.0-7.0) % Baso % (Auto) 0.0 (0.0-3.0) % Neut # (Auto) 24.70 H (1.7-7.0) K/uL Lymph # (Auto) 0.40 L (0.90-2.90) K/uL [place] # (Auto) 1.00 H (0.00-0.90) K/UL Eos # (Auto) 0.00 (0.00-0.50) K/uL Baso # (Auto) 0.00 (0.00-0.30) K/uL Abs Immat Gran (auto) 0.20 (0.00-0.30) K/uL Imm/Tot Granulo (auto) 0.8 % Diff Slide Review Acceptable Review (Acceptable) VBG pH (7.32-7.43) VBG pCO2 (40-50) mmHG VBG pO2 (25-47) mmHG VBG HCO3 (21-28) mmol/L Sodium 129 L (135-149) mmol/L Potassium 5.2 H (3.6-5.1) mmol/L Chloride 97 (96-114) mmol/L Carbon Dioxide 17 L (20-32) mmol/L Anion Gap 15 (7-15) mEq/L BUN 29 (7-30) mg/dL Creatinine 1.5 (0.5-1.5) mg/dL Estimated Creat Clear 56.93 Estimated GFR 49 ml/min Glucose 509 H* (60-115) mg/dL Lactate 5.3 H* (0.5-1.9) mmol/L Calcium 8.6 (8.4-10.6) mg/dL Total Bilirubin 0.6 (0.1-1.5) mg/dL AST 35 (12-35) U/L ALT 86 H (4-50) U/L Alkaline Phosphatase 226 H (40-150) U/L Total Protein 6.4 (6.0-8.3) g/dL Albumin 3.1 L (3.3-5.0) g/dL Urine Color (Yellow) Urine Appearance (Clear) Urine pH (5.0-8.5) Ur Specific [place] (1.000-1.030) Urine Protein (Negative) Urine Glucose (UA) (Negative) Urine Ketones (Negative) Urine Blood (Negative) Urine Nitrite (Negative) Urine Bilirubin (Negative) Urine Urobilinogen (0.2-1.0) Ur Leukocyte Esterase (Negative) Urine RBC (0-2) Urine WBC (0-5) Ur Squamous Epith Cells (None-Few) Urine Bacteria (None) Fine Granular Casts (None) SARS-CoV-2 (PCR) Negative SARS-CoV-2 (Negative) Influenza Type A (PCR) Negative PCR FLU A (Negative) Influenza Type B (PCR) Negative PCR FLU B (Negative) RSV (PCR) Negative PCR RSV (Negative) POC Glucose (60-115) mg/dl POC Troponin I 0.03 (0.01-0.04) ng/ml 01/12/25 01/12/25 01/12/25 Range/Units 15:13 15:50 17:00 WBC (4.50-11.00) K/uL RBC (4.30-5.90) m/uL Hgb (13.5-17.5) gm/dL Hct (37.0-53.0) % MCV (80-100) fL MCH (26-34) pg MCHC (32-36) gm/dL RDW Coeff of Maribel (11.5-15.5) % Plt Count (140-440) K/uL Neut % (Auto) (42.0-72.0) % Lymph % (Auto) (20-44) % [place] % (Auto) (0.0-11.0) % Eos % (Auto) (0.0-7.0) % Baso % (Auto) (0.0-3.0) % Neut # (Auto) (1.7-7.0) K/uL Lymph # (Auto) (0.90-2.90) K/uL [place] # (Auto) (0.00-0.90) K/UL Eos # (Auto) (0.00-0.50) K/uL Baso # (Auto) (0.00-0.30) K/uL Abs Immat Gran (auto) (0.00-0.30) K/uL Imm/Tot Granulo (auto) % Diff Slide Review (Acceptable) VBG pH 7.37 (7.32-7.43) VBG pCO2 40 (40-50) mmHG VBG pO2 34.1 (25-47) mmHG VBG HCO3 24 (21-28) mmol/L Sodium (135-149) mmol/L Potassium (3.6-5.1) mmol/L Chloride (96-114) mmol/L Carbon Dioxide (20-32) mmol/L Anion Gap (7-15) mEq/L BUN (7-30) mg/dL Creatinine (0.5-1.5) mg/dL Estimated Creat Clear Estimated GFR ml/min Glucose (60-115) mg/dL Lactate 2.8 H (0.5-1.9) mmol/L Calcium (8.4-10.6) mg/dL Total Bilirubin (0.1-1.5) mg/dL AST (12-35) U/L ALT (4-50) U/L Alkaline Phosphatase (40-150) U/L Total Protein (6.0-8.3) g/dL Albumin (3.3-5.0) g/dL Urine Color Yellow (Yellow) Urine Appearance Clear (Clear) Urine pH 5.5 (5.0-8.5) Ur Specific [place] 1.020 (1.000-1.030) Urine Protein 1+ A (Negative) Urine Glucose (UA) 2+ A (Negative) Urine Ketones Trace A (Negative) Urine Blood Negative (Negative) Urine Nitrite Negative (Negative) Urine Bilirubin Negative (Negative) Urine Urobilinogen 0.2 (0.2-1.0) Ur Leukocyte Esterase Negative (Negative) Urine RBC 0-2 (0-2) Urine WBC 0-2 (0-5) Ur Squamous Epith Cells None (None-Few) Urine Bacteria Few A (None) Fine Granular Casts Few A (None) SARS-CoV-2 (PCR) (Negative) Influenza Type A (PCR) (Negative) Influenza Type B (PCR) (Negative) RSV (PCR) (Negative) POC Glucose (60-115) mg/dl POC Troponin I (0.01-0.04) ng/ml 01/12/25 Range/Units 17:56 WBC (4.50-11.00) K/uL RBC (4.30-5.90) m/uL Hgb (13.5-17.5) gm/dL Hct (37.0-53.0) % MCV (80-100) fL MCH (26-34) pg MCHC (32-36) gm/dL RDW Coeff of Maribel (11.5-15.5) % Plt Count (140-440) K/uL Neut % (Auto) (42.0-72.0) % Lymph % (Auto) (20-44) % [place] % (Auto) (0.0-11.0) % Eos % (Auto) (0.0-7.0) % Baso % (Auto) (0.0-3.0) % Neut # (Auto) (1.7-7.0) K/uL Lymph # (Auto) (0.90-2.90) K/uL [place] # (Auto) (0.00-0.90) K/UL Eos # (Auto) (0.00-0.50) K/uL Baso # (Auto) (0.00-0.30) K/uL Abs Immat Gran (auto) (0.00-0.30) K/uL Imm/Tot Granulo (auto) % Diff Slide Review (Acceptable) VBG pH (7.32-7.43) VBG pCO2 (40-50) mmHG VBG pO2 (25-47) mmHG VBG HCO3 (21-28) mmol/L Sodium (135-149) mmol/L Potassium (3.6-5.1) mmol/L Chloride (96-114) mmol/L Carbon Dioxide (20-32) mmol/L Anion Gap (7-15) mEq/L BUN (7-30) mg/dL Creatinine (0.5-1.5) mg/dL Estimated Creat Clear Estimated GFR ml/min Glucose (60-115) mg/dL Lactate (0.5-1.9) mmol/L Calcium (8.4-10.6) mg/dL Total Bilirubin (0.1-1.5) mg/dL AST (12-35) U/L ALT (4-50) U/L Alkaline Phosphatase (40-150) U/L Total Protein (6.0-8.3) g/dL Albumin (3.3-5.0) g/dL Urine Color (Yellow) Urine Appearance (Clear) Urine pH (5.0-8.5) Ur Specific [place] (1.000-1.030) Urine Protein (Negative) Urine Glucose (UA) (Negative) Urine Ketones (Negative) Urine Blood (Negative) Urine Nitrite (Negative) Urine Bilirubin (Negative) Urine Urobilinogen (0.2-1.0) Ur Leukocyte Esterase (Negative) Urine RBC (0-2) Urine WBC (0-5) Ur Squamous Epith Cells (None-Few) Urine Bacteria (None) Fine Granular Casts (None) SARS-CoV-2 (PCR) (Negative) Influenza Type A (PCR) (Negative) Influenza Type B (PCR) (Negative) RSV (PCR) (Negative) POC Glucose 385 H* (60-115) mg/dl POC Troponin I (0.01-0.04) ng/ml Discharge Plan Discharge Clinical Impression: Left lower lobe pneumonia Patient Disposition: Admitted As Inpatient Procedures ABG Interpretation ABG Results: 01/12/25 15:50 VBG pH 7.37 VBG pCO2 40 VBG pO2 34.1 VBG HCO3 24
--- NOTE | 2025-01-12 14:00 | CRLHL7_ITS ---
For Patients: As a result of the Cures Act, medical imaging exams and procedure reports are released immediately into your electronic medical record. You may view this report before your referring provider. If you have questions, please contact your health care provider. Indication: Weakness, pneumonia? Technique: PA and lateral views of the chest. Comparison: Report 12/06/2024 Findings: Partial visualization of right shoulder arthroplasty. Moderate hiatal hernia. Left lower lobe opacity. Mild bibasilar opacities. No pleural effusions or visualized pneumothorax. Impression: Left lower lobe opacity may correspond to the patient`s reported left lower lobe mass. Superimposed infection can not be excluded. Dictated by Phillip Ingram MD @ 01/12/2025 2:59:52 PM (Electronically Signed)
--- NOTE | 2025-01-12 14:15 | CRLHL7_ITS ---
For Patients: As a result of the Century Cures Act, medical imaging exams and procedure reports are released immediately into your electronic medical record. You may view this report before your referring provider. If you have questions, please contact your health care provider. INDICATION: Fall patient on blood thinners TECHNIQUE: CT head without contrast. COMPARISON: MRI brain October 2023 FINDINGS: No acute infarct or intracranial hemorrhage. No abnormal extra-axial fluid collection. Multiple small chronic cortical infarction in the left frontal and parietal lobe. Small chronic lacunar infarct in left mahajan radiata. Mild parenchymal atrophy. Scattered white matter hypodensities are nonspecific and are likely related to chronic microvascular ischemic changes. Skull base and calvarium: The visualized paranasal sinuses and mastoid air cells demonstrate no acute or significant findings. The visualized orbits are grossly unremarkable. No skull fractures. IMPRESSION: Chronic changes without acute intracranial abnormality. Please note that all CT scans at this facility use dose modulation, iterative reconstruction, and/or weight-based dosing when appropriate to reduce radiation dose to as low as reasonably achievable. Dictated by Anika Kate MD @ 01/12/2025 3:02:45 PM (Electronically Signed)
[2025-01-12 14:32] LABS: Lactate* 5.3 mmol/L (0.5-1.9)
[2025-01-12 14:33] LABS: Hematocrit* 33.9 % (37.0-53.0); Hemoglobin* 11.2 gm/dL (13.5-17.5); Immature Granulocytes Abs Auto 0.20 K/uL (0.00-0.30); Immature Granulocytes Pct Auto 0.8 %; Mean Corpuscular HGB Conc 33 gm/dL (32-36); Mean Corpuscular Hemoglobin 31 pg (26-34); Mean Corpuscular Volume 94 fL (80-100); RDW Coefficient of Variation % 12.7 % (11.5-15.5); Red Blood Count* 3.60 m/uL (4.30-5.90)
[2025-01-12 14:46] LABS: Albumin* 3.1 g/dL (3.3-5.0); Chloride* 97 mmol/L (96-114); Potassium* 5.2 mmol/L (3.6-5.1); Sodium* 129 mmol/L (135-149)
[2025-01-12 14:49] LABS: Alanine Aminotransferase* 86 U/L (4-50); Alkaline Phosphatase* 226 U/L (40-150); Anion Gap 15 mEq/L (7-15); Aspartate Amino Transferase* 35 U/L (12-35); Bilirubin Total* 0.6 mg/dL (0.1-1.5); Blood Urea Nitrogen* 29 mg/dL (7-30); Calcium* 8.6 mg/dL (8.4-10.6); Carbon Dioxide* 17 mmol/L (20-32); Creatinine* 1.5 mg/dL (0.5-1.5); Est. Creatinine Clearance* 56.93; Estimated Glomerular Filt Rate 49 ml/min; Total Protein* 6.4 g/dL (6.0-8.3)
[2025-01-12 14:54] LABS: Troponin, Point-of-Care* 0.03 ng/ml (0.01-0.04)
[2025-01-12 14:57] LABS: PCR FLU A Negative PCR FLU A (Negative); PCR FLU B Negative PCR FLU B (Negative); PCR RSV Negative PCR RSV (Negative); SARS PCR* Negative SARS-CoV-2 (Negative)
[2025-01-12 15:05] LABS: Glucose* 509 mg/dL (60-115)
[2025-01-12 15:06] LABS: Lymphocytes Absolute Auto 0.40 K/uL (0.90-2.90)
[2025-01-12 15:07] LABS: Slide Review Reflex Yes; White Blood Count* 26.25 K/uL (4.50-11.00)
--- OUTSIDE RECORDS SUMMARY | 2025-01-12 15:16 | XMS_ITS | Clinical Summary ---
Author Organization [facility] Address [address], [place] [address] Phone Care Team Providers Care Hand Counter Name Role Phone Yousuf Bernard MD Primary Care Provider [phone] Allergies No known active allergies Medications amLODIPine (NORVASC) 10 MG tablet Take 10 mg by mouth 1 (one) time each day Active atorvastatin (LIPITOR) 80 MG tablet Take 80 mg by mouth 1 (one) time each day Active HYDROcodone-sarbjit taminophen (NORCO) 5-325 MG per tablet Take 0.5-1 [...] 1 (one) time each day 10/03/2022 Active amitriptyline (ELAVIL) 10 MG tablet Take 10 mg by mouth 1 (one) time each day Active Semaglutide (OZEMPIC, 2 MG/DOSE, SC) Inject 2 mg under the skin Active Active Problems Problem Noted Date Diagnosed Date Acute renal failure syndrome 09/26/2022 Nephrolithiasis 09/26/2022 Immunizations Immunization Administration Dates Next Due Fluzone High-Dose 01/15/2023 Hep B, Unspecified 08/09/1991 Pfizer Sars-cov-2 Vaccination 2023, 023 Pneumococcal Conjugate 20-Valent 11/08/2022 Pneumococcal Polysaccharide 03/07/2021 Td 01/10/1971 Tdap 02/04/2023 Zoster Recombinant 01/17/2023,11/08/2022 Family History Medical History Relation Comments Hypertension [...] Recorded Sex Assigned at Not on file Legal Sex Male 7:37 AM MDT Gender Identity Not on file Sexual Orientation Not on file Last Filed Vital Signs Vital Sign Reading Time Taken Comments Blood Pressure 113/74 01/07/2023 3:22 PM MOTHER BABY RN Pulse 80 01/07/2023 3:22 PM MOTHER BABY RN Temperature 36.3 C (97.4 F) 01/07/2023 3:22 PM MOTHER BABY RN Respiratory Rate 20 09/23/2022 2:15 PM CDT Oxygen Saturation 97% 01/07/2023 3:22 PM MOTHER BABY RN Inhaled Oxygen Concentration - - Weight 111 kg (244 lb 3.2 oz) 01/07/2023 3:22 PM MOTHER BABY RN Height 195.6 cm (6' 5) 01/07/2023 3:22 PM MOTHER BABY RN Body Mass Index 28.96 01/07/2023 3:22 PM MOTHER BABY RN Plan of Treatment Health Maintenance Due Date Last Done Comments Diabetic Foot Exam 08/05/1963 Ophthalmology Exam 08/05/1963 Pneumococcal PPSV23/PCV13 65 + Years / High and Highest Risk (2 of 3 - PCV) 03/07/2022 03/07/2021 COVID-19 Vaccine (5 - 2024-2 6 season) 2024 2023, 09/04/2022, 05/26/2020, Additional history exists Influenza Vaccine (#1) 2024 Insurance PM INTERFACED INSURANCE PM INTERFACED INSURANCE PM INTERFACED INSURANCE Care Teams Hand Counter Relationship Specialty Start Date End Date Yousuf Bernard MD [address] [place] [address] PCP - General 02/14/23
--- OUTSIDE RECORDS SUMMARY | 2025-01-12 15:16 | XMS_ITS | Encounter Summary ---
Author Organization [facility] Address [address] [address] Phone Care Team Providers Care Punch Finisher Name Role Phone Yousuf Bernard MD Primary Care Provider [phone] Reason for Visit * Reason Comments Med Refill Encounter Details Date Type Department Care Team (Late st Contact Info) Description 10/22/2023 Refill [facility] [address] [place], [place] [address] Jin Shipley MD [address] [facility] [address] [place], [place] [address] Social History Tobacco Use Types Packs/Day Years [...] on filedocumented in this encounter Care Teams Punch Finisher Relationship Specialty Start Date End Date Yousuf Bernard MD [address] [place] [address] PCP - General 02/14/23 documented as of this encounter
[2025-01-12 15:21] LABS: Appearance Urine Clear (Clear)
[2025-01-12] MEDS: 0.9 % SODIUM CHLORIDE 500 ML 500 ML IV (15:22)
[2025-01-12 15:58] LABS: HCO3 VBG 24 mmol/L (21-28); PCO2 VBG 40 mmHG (40-50); PO2 VBG 34.1 mmHG (25-47); pH VBG 7.37 (7.32-7.43)
[2025-01-12] MEDS: DOXYCYCLINE HYCLATE 100 MG in 0.9 % SODIUM CHLORIDE Mini-bag 100 ML IVPB (15:58)
[2025-01-12 16:02] LABS: Slide Review Acceptable Review (Acceptable)
[2025-01-12] MEDS: INSULIN REGULAR, HUMAN 100 UNIT/ML VIAL 10 UNIT IVP (17:11)
[2025-01-12] MEDS: cefTRIAXone 2 GM in 0.9 % SODIUM CHLORIDE Mini-bag 100 ML IVPB (17:16)
[2025-01-12 17:19] LABS: Lactate* 2.8 mmol/L (0.5-1.9)
[2025-01-12 18:16] LABS: Glucose, Point-of-Care* 385 mg/dl (60-115)
--- NOTE | 2025-01-12 18:58 | PM.IMHP1 ---
Assessment and Plan Assessment and plan (1) Left lower lobe pneumonia: Problem comment: - as evidenced by new weakness, L rib pain, tachypnea, tachycardia, leukocytosis - Ceftriaxone and Doxycycline (01/12/25) - decreased breath sounds and significant tachypnea 01/12, will obtain CT to further characterize - unlikely to have PE given treatment with Eliquis Status: Acute (2) Hyperglycemia: Problem comment: - without acidosis or anion gap, likely worsened by recent 7 day prednisone burst - follow accuchecks, + SSI, holding home oral medications (Glipizide, Metformin, Januvia) Status: Acute (3) Squamous cell carcinoma of lung, stage I: Problem comment: - diagnosed 07/17, [id number] Stage 1A2 - follows with [facility] - was due for PET scan 01/13 ( has rescheduled 2/2 hospitalization) Status: Acute (4) Elevated LFTs: Problem comment: - no abdominal pain, reassuring exam - follow LFTs Status: Acute (5) Non-insulin dependent diabetes mellitus: Problem comment: - A1C 9.7 01/03/25 - accuchecks and sliding scale, holding Metformin given elevated lactate Status: Acute (6) Stroke: Problem comment: - L cerebral hemisphere (2022), posterior cerebral hemispheres and L basal ganglia + L frontal and parietal lobs (2023) - on high dose statin + Apixaban, residual R sided weakness Status: Acute (7) Tobacco use: Problem comment: - approximately 15 cigarettes/day, declines scheduled nicotine replacement Status: Acute Plan - per above - Gracia updated bedside, questions answered Hospitalist- H&P: HPI History of Present Illness Date Seen: 01/12/25 Chief complaint: weakness Narrative: Chato He is a 69 year old male who presented to the ER by ambulance today for generalized weakness. He's noted this for 1-2 weeks, saw PCP for this in early December. Home health was ordered (but he has thusfar declined services), and treated with one week of Prednisone, (last dose today). Intermittent cough, no sputum or hemoptysis. He had a f/u appointment with his PCP but had a mechanical fall (pre-syncopal) in the garage and was too weak to get into the car. EMS called. ER: - HR 100-120s, RR 24-30s, 95% on RA - WBC 26 with 94% PMNs, lactate 5.3 --> 2.8, normal VBG - Na 129 (corrected 135), K 5.2, AST 86, Alk phos 226 - BG 509: received 10U of Insulin + IVF bolus with improvement to 385 - negative Head CT, LLL opacity on CXR (known mass, cannot exclude superimposed infection) Admitted for PNA in the setting of leukocytosis, tachypnea, elevated lactate, hyperglycemia. Histories reviewed and updated below. Dr. Dorinda Washington is PCP at [facility]. Review of Systems Status of ROS: Reports: 10 or more systems reviewed and unremarkable except as noted in History and below Medical Decision Making Medical Decision Making Code Status: DNR/DNI Has patient completed a Health Care Directive: Yes During This Stay, Who Would You Like To Make Decisions For You In The Event You Are Unable To Make Them For Yourself?: Christianne Fagan [facility] Medical History (Updated 01/12/25 @ 20:06 by Zenobia Mccartney MD) Non-insulin dependent diabetes mellitus Stroke ?I63.9 - Cerebral infarction, unspecified (ICD-10) Squamous cell carcinoma of lung, stage I ?C34.90 - Malignant neoplasm of unspecified part of unspecified bronchus or lung (ICD-10) Right sided weakness ?R53.1 - Weakness (ICD-10) Tobacco use ?Z72.0 - Tobacco use (ICD-10) Peripheral neuropathy ?G62.9 - Polyneuropathy, unspecified (ICD-10) Essential hypertension ?I10 - Essential (primary) hypertension (ICD-10) Abdominal aneurysm ?I71.40 - Abdominal aortic aneurysm, without rupture, unspecified (ICD-10) CKD stage 3b, GFR 30-44 ml/min ?N18.32 - Chronic kidney disease, stage 3b (ICD-10) Surgical History (Updated 11/19/23 @ 15:40 by Zenobia Mccartney MD) H/O total hip arthroplasty ?Z96.649 - Presence of unspecified artificial hip joint (ICD-10) S/P bronchoscopy with biopsy ?Z98.890 - Other specified postprocedural states (ICD-10) Social History (Updated 11/19/23 @ 16:01 by Zenobia Mccartney MD) Narrative: Christianne Baltazar would be medical decision maker if needed. Requests DNR/DNI status. Retired, smokes 15-20 cigarettes/day. No concerning ETOH use. What is your current living situation?: I presently have a place to live Problems where you live: no known problems Problems where you live details: n/a In the past 12 months, utilities in danger of being shut off: no In past 12 months, lack of transportation kept you from medical appts, meetings, work, or getting things needed for daily living: no In the past 12 mos, have been you worried that your food would run out before you had money to buy more?: never true In the past 12 mos, the food you bought just didn't last and you didn't have money to buy more?: never true Highest level of school completed/degree received: Bachelor's degree Smoking Status: Current every day smoker What tobacco products do you use: cigarettes Smoking packs per day: 0.75 Smoking cigarettes per day: 15.0 Years smoked: 50 Smoking pack-years: 37.50 Do you use any of these nicotine containing products: None Second hand tobacco smoke exposure: Yes How often do you have a drink containing alcohol: monthly or less Alcohol type: hard liquor How many standard drinks containing alcohol do you have on a typical day: 1 or 2 How often do you have six or more drinks on one occasion: Never AUDIT-C Alcohol total score: 1 Non-prescribed substance use: denies use Caffeine: No How often does anyone, including family, friends and others, physically hurt you: never How often does anyone, including family, friends and others, insult or talk down to you: never How often does anyone, including family, friends and others, threaten you with harm: never How often does anyone, including family, friends and others, scream or curse at you: never service: No Meds Home Medications and Allergies Home Medications ?Medication ?Instructions ?Recorded ?Confirmed ?Type allopurinol 100 mg tablet 100 mg PO DAILY 11/19/23 01/12/25 History amitriptyline 10 mg tablet 10 mg PO HS 11/19/23 01/12/25 History amlodipine 10 mg tablet 10 mg PO DAILY 11/19/23 01/12/25 History atorvastatin 80 mg tablet 80 mg PO QPM 11/19/23 01/12/25 History glipizide 10 mg tablet, extended 20 mg PO DAILY 11/19/23 01/12/25 History release 24 hr hydrocodone 5 mg-acetaminophen 325 1 tab PO BID PRN pain 11/19/23 01/12/25 History mg tablet lisinopril 20 mg tablet 30 mg PO DAILY 11/19/23 01/12/25 History metformin 1,000 mg tablet 500 mg PO BID 11/19/23 01/12/25 History naloxone 4 mg/actuation nasal spray 1 spray intranasal .PRN PRN 11/19/23 01/12/25 History semaglutide 2 mg/dose (8 mg/3 mL) 2 mg subcut .WEEKLY 11/19/23 11/19/23 History subcutaneous pen injector (Ozempic) sennosides 8.6 mg-docusate sodium 2 tab-cap PO BID PRN 11/19/23 11/19/23 History 50 mg tablet (Stimulant Laxative Plus) apixaban 5 mg tablet (Eliquis) 5 mg PO BID 01/12/25 01/12/25 History Home Medication Comments: not on Ozempic, on Januvia Allergies Allergy/AdvReac Type Severity Reaction Status Date / Time No Known Drug Allergies Allergy Verified 01/12/25 14:03 Exam Narrative: Exam Narrative: GEN: Alert and awake, answering questions appropriately HEENT: EOMIs bilaterally, no scleral icterus CV: Tachycardia with HR 100-110s R: Tachypnea, no air movement ausculated L chest Ab: Soft, nontender, negative Davis's sign Ext: wwp, no concerning edema Skin: Scattered bruising on extremities, SKs over back Neuro: No facial droop gait not observed, right-sided weakness (baseline) Psych: Appropriate Const: Vital Signs, click to edit/add: Vital Signs - 24 hr 01/12/25 13:57 01/12/25 14:02 01/12/25 15:07 Temperature 97.6 F Pulse Rate 118 H Pulse Rate [Pulse Oximeter] 114 H Pulse Rate [orthos tatic lying Left P ulse Oximeter] 105 H Pulse Rate [orthos tatic sitting Left Pulse Oximeter] 114 H Respiratory Rate 16 20 Blood Pressure 128/80 Blood Pressure [Ri ght Upper Arm] 117/82 Blood Pressure [or thostatic lying Ri ght Arm] 123/73 Blood Pressure [or thostatic sitting Right Arm] 117/82 Pulse Oximetry 93 96 Oxygen Delivery Me thod Room Air 01/12/25 15:07 01/12/25 15:15 01/12/25 15:30 Temperature Pulse Rate Pulse Rate [Pulse Oximeter] Pulse Rate [orthos tatic lying Left P ulse Oximeter] Pulse Rate [orthos tatic sitting Left Pulse Oximeter] Respiratory Rate 40 H 27 H 25 H Blood Pressure Blood Pressure [Ri ght Upper Arm] Blood Pressure [or thostatic lying Ri ght Arm] Blood Pressure [or thostatic sitting Right Arm] Pulse Oximetry Oxygen Delivery Me thod 01/12/25 15:32 01/12/25 15:45 01/12/25 16:00 Temperature Pulse Rate Pulse Rate [Pulse Oximeter] Pulse Rate [orthos tatic lying Left P ulse Oximeter] Pulse Rate [orthos tatic sitting Left Pulse Oximeter] Respiratory Rate 31 H 29 H 27 H Blood Pressure 126/77 Blood Pressure [Ri ght Upper Arm] Blood Pressure [or thostatic lying Ri ght Arm] Blood Pressure [or thostatic sitting Right Arm] Pulse Oximetry Oxygen Delivery Me thod 01/12/25 16:01 01/12/25 16:15 01/12/25 16:30 Temperature Pulse Rate 100 96 Pulse Rate [Pulse Oximeter] Pulse Rate [orthos tatic lying Left P ulse Oximeter] Pulse Rate [orthos tatic sitting Left Pulse Oximeter] Respiratory Rate 21 12 25 H Blood Pressure 134/79 Blood Pressure [Ri ght Upper Arm] Blood Pressure [or thostatic lying Ri ght Arm] Blood Pressure [or thostatic sitting Right Arm] Pulse Oximetry 93 92 Oxygen Delivery Me thod 01/12/25 16:32 01/12/25 16:33 01/12/25 16:45 Temperature Pulse Rate 89 101 H Pulse Rate [Pulse Oximeter] Pulse Rate [orthos tatic lying Left P ulse Oximeter] Pulse Rate [orthos tatic sitting Left Pulse Oximeter] Respiratory Rate 24 30 H 31 H Blood Pressure 144/84 H Blood Pressure [Ri ght Upper Arm] Blood Pressure [or thostatic lying Ri ght Arm] Blood Pressure [or thostatic sitting Right Arm] Pulse Oximetry 93 92 Oxygen Delivery Me thod Room Air 01/12/25 17:00 01/12/25 17:01 01/12/25 17:15 Temperature Pulse Rate 111 H 111 H 103 H Pulse Rate [Pulse Oximeter] Pulse Rate [orthos tatic lying Left P ulse Oximeter] Pulse Rate [orthos tatic sitting Left Pulse Oximeter] Respiratory Rate 14 29 H 27 H Blood Pressure 123/83 Blood Pressure [Ri ght Upper Arm] Blood Pressure [or thostatic lying Ri ght Arm] Blood Pressure [or thostatic sitting Right Arm] Pulse Oximetry 93 94 95 [facility] 01[facility]12[facility] 17:30 01/12/25 17:31 01/12/25 17:45 Temperature Pulse Rate 113 H 116 H 113 H Pulse Rate [Pulse Oximeter] Pulse Rate [orthos tatic lying Left P ulse Oximeter] Pulse Rate [orthos tatic sitting Left Pulse Oximeter] Respiratory Rate 25 H 31 H 25 H Blood Pressure 136/81 Blood Pressure [Ri ght Upper Arm] Blood Pressure [or thostatic lying Ri ght Arm] Blood Pressure [or thostatic sitting Right Arm] Pulse Oximetry 94 92 95 Oxygen Delivery [facility] 01/12/25 18:00 01/12/25 18:05 Temperature Pulse Rate Pulse Rate [Pulse Oximeter] Pulse Rate [orthos tatic lying Left P ulse Oximeter] Pulse Rate [orthos tatic sitting Left Pulse Oximeter] Respiratory Rate 25 H 31 H Blood Pressure Blood Pressure [Ri ght Upper Arm] Blood Pressure [or thostatic lying Ri ght Arm] Blood Pressure [or thostatic sitting Right Arm] Pulse Oximetry Oxygen Delivery [facility] Hospitalist - H&P: Result Labs Labs: Short CBC 01/12/25 Range/Units 14:25 WBC 26.25 H* (4.50-11.00) K/uL Hgb 11.2 L (13.5-17.5) gm/dL Hct 33.9 L (37.0-53.0) % Plt Count 428 (140-440) K/uL BMP 01/12/25 14:25 Sodium 129 L Potassium 5.2 H Chloride 97 Carbon Dioxide 17 L BUN 29 Creatinine 1.5 Glucose 509 H* Calcium 8.6 Liver Function 01/12/25 Range/Units 14:25 Total Bilirubin 0.6 (0.1-1.5) mg/dL AST 35 (12-35) U/L ALT 86 H (4-50) U/L Alkaline Phosphatase 226 H (40-150) U/L Albumin 3.1 L (3.3-5.0) g/dL Urine 01/12/25 Range/Units 15:13 Urine Color Yellow (Yellow) Urine Appearance Clear (Clear) Urine pH 5.5 (5.0-8.5) Ur Specific Hurley 1.020 (1.000-1.030) Urine Protein 1+ A (Negative) Urine Glucose (UA) 2+ A (Negative)
[2025-01-12] MEDS: HYDROCODONE-ACETAMIN 5-325 MG 1 TAB PO (19:46)
--- NOTE | 2025-01-12 20:07 | CRLHL7_ITS ---
For Patients: As a result of the Century Cures Act, medical imaging exams and procedure reports are released immediately into your electronic medical record. You may view this report before your referring provider. If you have questions, please contact your health care provider. Indication: Tachypnea, cough, pneumonia, elevated LFTs, left lower lobe neoplasm Technique: Postcontrast CT of the chest, abdomen, and pelvis with multiplanar reformats following 97 mL Isovue 370 IV. Comparison: Multiple CTs of the chest, most recently 12/07/2024 Findings: Chest: Lungs: Within the area of treated malignancy in the left lower lobe, there is significant increase in size of soft tissue which now measures 6.8 x 6.2 centimeters with areas of internal gas which could represent developing cavitation. New favju-[id number] left pleural effusion with areas of fluid loculation. Bibasilar scarring and/or atelectasis. No pneumothorax. Mediastinum: No acute abnormality appreciated. Lymph nodes: Suspected enlargement left hilar node measuring 12 millimeters. Soft tissues: No acute abnormality appreciated. Bones: No acute abnormality appreciated. Right shoulder replacement. Degenerative changes of the spine. Abdomen and Pelvis: Hepatobiliary: No significant parenchymal abnormality is appreciated. Cholelithiasis. Spleen: Unremarkable. Pancreas: No acute abnormality appreciated. Adrenal glands: No acute abnormality appreciated. Kidneys: Nonobstructing renal stones. No hydronephrosis. No acute parenchymal abnormality appreciated. Bowel: No obstruction. Multifocal areas of colonic wall thickening and mild adjacent stranding greatest in the sigmoid colon. The appendix is visualized and appears unremarkable. Vascular: No acute abnormality appreciated. Calcified and noncalcified atherosclerosis. Mild infrarenal abdominal aortic ectasia. Lymph nodes: No gross lymphadenopathy. Peritoneum: No free air. No free fluid. : No acute abnormality appreciated. Soft tissues: No acute abnormality appreciated. Fat containing left inguinal hernia. Right inguinal hernia contains a short segment of small bowel without convincing evidence of incarceration/strangulation at this time. Bones: No acute fracture. No lytic or blastic lesion. Right hip replacement. Degenerative changes of the spine and pelvis. Impression: 1. Within the area of the known previously treated malignancy in the left lower lobe, there is significant increase in size of soft tissue along with a new small to moderate and partially loculated left pleural effusion and suspected increasing left hilar lymphadenopathy. Differential would include disease progression, aggressive appearing postradiation change/necrosis, and infection. 2. Multifocal areas of mild bowel wall thickening and slight adjacent stranding greatest along the sigmoid colon suspicious for mild multifocal colitis. 3. Nonobstructing renal stones. 4. Cholelithiasis. Please note that all CT scans at this facility use dose modulation, iterative reconstruction, and/or weight-based dosing when appropriate to reduce radiation dose to as low as reasonably achievable. Dictated by Smith Ludwig MD @ 01/12/2025 10:21:48 PM (Electronically Signed)
[2025-01-12] MEDS: APIXABAN 5 MG TABLET PO (20:30)
[2025-01-12] MEDS: DOXYCYCLINE HYCLATE 100 MG PO (20:30)
[2025-01-12] MEDS: INSULIN ASPART 100 UNIT/ML SUBCUT (20:55)
[2025-01-12] MEDS: AMITRIPTYLINE HCL 10 MG TABLET PO (21:00)
[2025-01-12] MEDS: SODIUM CHLORIDE 0.9 % (FLUSH) 10 ML SYRINGE 5 ML IVF (21:00)
[2025-01-13] VITALS (12 sets, daily range): BP systolic 112–139; BP diastolic 80–92; PULSE 92–120; RESP 18–28; TEMP 36.3–37.3; O2SAT 91–95; BMI 24.4
--- NOTE | 2025-01-13 00:13 | PM.EN ---
Chart Event Note Chart Event Note: Patient's tachypnea has improved, tachycardia persists. Lactate has improved to 2.8 from 5.3. Antibiotics have been broadened to Zosyn, will give another IV fluid bolus and continue to follow closely.
[2025-01-13] MEDS: PIPERACILLIN/TAZOBACTAM 3.375 GM in 0.9 % SODIUM CHLORIDE Mini-bag 100 ML IVPB ×5 (00:35→23:51)
[2025-01-13] MEDS: 0.9 % SODIUM CHLORIDE 500 ML 500 ML IV (00:36)
[2025-01-13 06:07] LABS: HCO3 VBG 23 mmol/L (21-28); Lactate* 1.7 mmol/L (0.5-1.9); PCO2 VBG 36 mmHG (40-50); PO2 VBG 42.4 mmHG (25-47); pH VBG 7.409 (7.32-7.43)
[2025-01-13 06:16] LABS: Hematocrit* 31.9 % (37.0-53.0); Hemoglobin* 10.6 gm/dL (13.5-17.5); Immature Granulocytes Pct Auto 0.5 %; Mean Corpuscular HGB Conc 33 gm/dL (32-36); Mean Corpuscular Hemoglobin 31 pg (26-34); Mean Corpuscular Volume 93 fL (80-100); RDW Coefficient of Variation % 12.8 % (11.5-15.5); Red Blood Count* 3.44 m/uL (4.30-5.90)
[2025-01-13 06:22] LABS: Immature Granulocytes Abs Auto 0.10 K/uL (0.00-0.30); Lymphocytes Absolute Auto 1.30 K/uL (0.90-2.90); Slide Review Reflex No; White Blood Count* 28.52 K/uL (4.50-11.00)
[2025-01-13 06:31] LABS: Albumin* 2.9 g/dL (3.3-5.0); Chloride* 104 mmol/L (96-114); Potassium* 4.4 mmol/L (3.6-5.1); Sodium* 134 mmol/L (135-149)
[2025-01-13 06:33] LABS: Blood Urea Nitrogen* 27 mg/dL (7-30); Creatinine* 1.3 mg/dL (0.5-1.5); Est. Creatinine Clearance* 65.68; Estimated Glomerular Filt Rate 59 ml/min
[2025-01-13 06:34] LABS: Alanine Aminotransferase* 80 U/L (4-50); Alkaline Phosphatase* 204 U/L (40-150); Anion Gap 10 mEq/L (7-15); Aspartate Amino Transferase* 38 U/L (12-35); Bilirubin Total* 0.5 mg/dL (0.1-1.5); Calcium* 8.5 mg/dL (8.4-10.6); Carbon Dioxide* 20 mmol/L (20-32); Glucose* 310 mg/dL (60-115); Total Protein* 6.0 g/dL (6.0-8.3)
--- NOTE | 2025-01-13 06:53 | PC.NURSE ---
End of shift:?Pt pleasant,?alert?and oriented.?Tele reads sinus?tachycardia, up into the 120s with movement, high 90s-low 100s with sleep, MD aware. Pt hypertensive, otherwise, VSS.?Pt has a moist cough with some?sputum, encouraged to cough it out.?Denies pain. Pt weak throughout?the shift,?needing?assistance?to sit and stay up at bedside. ?2a when up. Pt incontinent.?Pt in bed, appears to be resting, call light within reach.??
[2025-01-13 07:00] LABS: INR 1.36 (0.91-1.10); Prothrombin Time 17.7 Seconds
[2025-01-13] MEDS: APIXABAN 5 MG TABLET PO ×2 (09:20→20:53)
[2025-01-13] MEDS: AMLODIPINE 10 MG TABLET PO (09:20)
[2025-01-13] MEDS: HYDROCODONE-ACETAMIN 5-325 MG 1 TAB PO ×2 (10:29→18:39)
[2025-01-13] MEDS: INSULIN ASPART 100 UNIT/ML SUBCUT ×3 (10:31→18:02)
--- NOTE | 2025-01-13 11:33 | PM.IMPN1 ---
Assessment and Plan Assessment and plan (1) Sepsis: Problem comment: - severe sepsis given WBC 26, lactate 5.3, tachycardia, intermittent tachypnea, suspected pulmonary - received 2.5 L NS followed by 125 maintenance - will give additional bolus now - lactate improved to 1.7, leukocytosis -> 28, VBG pH 7.409, pCO2 36, PO2 42, HC03 23, LFTs elevated - continue Zosyn, add vancomycin - BC x2 pending, UC mixed liss, MRSA pending - strep pneumo/Legionella negative, viral respiratory panel pending Status: Acute (2) Left lower lobe pneumonia: Problem comment: - as evidenced by new weakness (progressive 3 weeks), L rib pain, tachypnea, tachycardia, leukocytosis, decreased breath sounds - CT chest shows Within the area of the known previously treated malignancy in the left lower lobe, there is significant increase in size of soft tissue along with a new small to moderate and partially loculated left pleural effusion and suspected increasing left hilar lymphadenopathy. Differential would include disease progression, aggressive appearing postradiation change/necrosis, and infection - Ceftriaxone and Doxycycline (01/12/25) in ED, changed to Zosyn on admission 01/12, added Vancomycin 01/13 - unlikely to have PE given treatment with Eliquis - management as above - patient is scheduled for outpatient PET scan which would help to differentiate malignancy 01/13 tachycardia improved following NS bolus, tachypnea improving Status: Acute (3) Hyperglycemia: Problem comment: - without acidosis or anion gap, likely worsened by recent 7 day prednisone burst - follow accuchecks, + SSI, holding home oral medications (Glipizide, Metformin, Januvia) - increased sliding scale to #3 Status: Acute (4) Elevated LFTs: Problem comment: - no abdominal pain, reassuring exam - AST 38, ALT down trending 80, alk phos down trending to 0.4, total bili 0.5, continue to monitor - follow LFTs Status: Acute (5) Squamous cell carcinoma of lung, stage I: Problem comment: - diagnosed 07/17, [id number] Stage 1A2 - follows with [facility] in [place] - was due for PET scan 01/13 ( has rescheduled 2/2 hospitalization) Status: Acute (6) Non-insulin dependent diabetes mellitus: Problem comment: - A1C 9.7 01/03/25 - accuchecks and sliding scale, holding home meds given elevated lactate Status: Acute (7) Tobacco use: Problem comment: - approximately 15 cigarettes/day, declines scheduled nicotine replacement Status: Acute (8) Stroke: Problem comment: - chronic - L cerebral hemisphere (2022), posterior cerebral hemispheres and L basal ganglia + L frontal and parietal lobs (2023) - on high dose statin + Apixaban, residual R sided weakness Status: Acute (9) Colitis: Problem comment: - CT shows Multifocal areas of mild bowel wall thickening and slight adjacent stranding greatest along the sigmoid colon suspicious for mild multifocal colitis - no abdominal pain, benign abdominal exam, normal BM yesterday Status: Acute (10) Physical deconditioning: Problem comment: - per , leans on her when ambulating, refusing to use walker, mostly sedentary - PT/OT consults, nursing home social worker for discharge planning/placement needs Status: Acute Plan Continue IV antibiotics, monitoring labs, therapies Total Time Spent Total Time Spent: Today I spent 55 minutes seeing the patient, reviewing Expanse and EPIC notes/diagnostics, discussing the care plan with our care time that includes social work, PT/OT, pharmacy, RT, mcfp and documenting my impressions and plan in the medical record. Subjective Date Seen: 01/13/25 Interval history: Patient is seen lying in bed, at bedside. Denies headache or dizziness. Denies chest pain. Denies feeling short of breath on room air though remains intermittently tachypneic. None currently. Denies nausea. No vomiting. Last BM was last night. No diarrhea. No abdominal pain. WBC starting to trend down Lactate normalized 1.7 HGB trending down, likely dilutional, no acute bleeding Sodium up to 134, potassium normal at 4.4 LFTs up Exam Narrative: Exam Narrative: PHYSICAL EXAM General: Restless, mildly irritable, NAD HEENT: Normocephalic, atraumatic, sclera white, EOMI, oral mucosa moist Cardiovascular: RRR, S1S2. No pitting edema Pulmonary: CTA bilaterally without rhonchi, rales, expiratory wheezes. No dyspnea on RA Abdominal: Soft, nondistended, NTTP Neurological: Alert, answering questions appropriately, cranial nerves intact, no focal findings Extremities: No gross joint deformity or swelling. AROMI. Neurovascularly intact Skin: Warm, dry. Const: Vital Signs, click to edit/add: Vital Signs - 24 hr 01/12/25 13:57 01/12/25 14:02 01/12/25 15:07 Temperature 97.6 F Pulse Rate 118 H Pulse Rate [Pulse Oximeter] 114 H Pulse Rate [orthos tatic lying Left P ulse Oximeter] 105 H Pulse Rate [orthos tatic sitting Left Pulse Oximeter] 114 H Respiratory Rate 16 20 Blood Pressure 128/80 Blood Pressure [Ri ght Arm] Blood Pressure [Ri ght Upper Arm] 117/82 Blood Pressure [or thostatic lying Ri ght Arm] 123/73 Blood Pressure [or thostatic sitting Right Arm] 117/82 Pulse Oximetry 93 96 Oxygen Delivery Me thod Room Air 01/12/25 15:07 01/12/25 15:15 01/12/25 15:30 Temperature Pulse Rate Pulse Rate [Pulse Oximeter] Pulse Rate [orthos tatic lying Left P ulse Oximeter] Pulse Rate [orthos tatic sitting Left Pulse Oximeter] Respiratory Rate 40 H 27 H 25 H Blood Pressure Blood Pressure [Ri ght Arm] Blood Pressure [Ri ght Upper Arm] Blood Pressure [or thostatic lying Ri ght Arm] Blood Pressure [or thostatic sitting Right Arm] Pulse Oximetry Oxygen Delivery Me thod 01/12/25 15:32 01/12/25 15:45 01/12/25 16:00 Temperature Pulse Rate Pulse Rate [Pulse Oximeter] Pulse Rate [orthos tatic lying Left P ulse Oximeter] Pulse Rate [orthos tatic sitting Left Pulse Oximeter] Respiratory Rate 31 H 29 H 27 H Blood Pressure 126/77 Blood Pressure [Ri ght Arm] Blood Pressure [Ri ght Upper Arm] Blood Pressure [or thostatic lying Ri ght Arm] Blood Pressure [or thostatic sitting Right Arm] Pulse Oximetry Oxygen Delivery Me thod 01/12/25 16:01 01/12/25 16:15 01/12/25 16:30 Temperature Pulse Rate 100 96 Pulse Rate [Pulse Oximeter] Pulse Rate [orthos tatic lying Left P ulse Oximeter] Pulse Rate [orthos tatic sitting Left Pulse Oximeter] Respiratory Rate 21 12 25 H Blood Pressure 134/79 Blood Pressure [Ri ght Arm] Blood Pressure [Ri ght Upper Arm] Blood Pressure [or thostatic lying Ri ght Arm] Blood Pressure [or thostatic sitting Right Arm] Pulse Oximetry 93 92 Oxygen Delivery Me thod 01/12/25 16:32 01/12/25 16:33 01/12/25 16:45 Temperature Pulse Rate 89 101 H Pulse Rate [Pulse Oximeter] Pulse Rate [orthos tatic lying Left P ulse Oximeter] Pulse Rate [orthos tatic sitting Left Pulse Oximeter] Respiratory Rate 24 30 H 31 H Blood Pressure 144/84 H Blood Pressure [Ri ght Arm] Blood Pressure [Ri ght Upper Arm] Blood Pressure [or thostatic lying Ri ght Arm] Blood Pressure [or thostatic sitting Right Arm] Pulse Oximetry 93 92 Oxygen Delivery Me thod Room Air 01/12/25 17:00 01/12/25 17:01 01/12/25 17:15 Temperature Pulse Rate 111 H 111 H 103 H Pulse Rate [Pulse Oximeter] Pulse Rate [orthos tatic lying Left P ulse Oximeter] Pulse Rate [orthos tatic sitting Left Pulse Oximeter] Respiratory Rate 14 29 H 27 H Blood Pressure 123/83 Blood Pressure [Ri ght Arm] Blood Pressure [Ri ght Upper Arm] Blood Pressure [or thostatic lying Ri ght Arm] Blood Pressure [or thostatic sitting Right Arm] Pulse Oximetry 93 94 95 Oxygen Delivery Me thod 01/12/25 17:30 01/12/25 17:31 01/12/25 17:45 Temperature Pulse Rate 113 H 116 H 113 H Pulse Rate [Pulse Oximeter] Pulse Rate [orthos tatic lying Left P ulse Oximeter] Pulse Rate [orthos tatic sitting Left Pulse Oximeter] Respiratory Rate 25 H 31 H 25 H Blood Pressure 136/81 Blood Pressure [Ri ght Arm] Blood Pressure [Ri ght Upper Arm] Blood Pressure [or thostatic lying Ri ght Arm] Blood Pressure [or thostatic sitting Right Arm] Pulse Oximetry 94 92 95 Oxygen Delivery Me thod 01/12/25 18:00 01/12/25 18:05 01/12/25 18:06 Temperature Pulse Rate Pulse Rate [Pulse Oximeter] Pulse Rate [orthos tatic lying Left P ulse Oximeter] Pulse Rate [orthos tatic sitting Left Pulse Oximeter] Respiratory Rate 25 H 31 H 20 Blood Pressure Blood Pressure [Ri ght Arm] Blood Pressure [Ri ght Upper Arm] Blood Pressure [or thostatic lying Ri ght Arm] Blood Pressure [or thostatic sitting Right Arm] Pulse Oximetry Oxygen Delivery Me thod 01/12/25 18:15 01/12/25 19:23 01/12/25 19:29 Temperature 96.6 F L Pulse Rate Pulse Rate [Pulse Oximeter] 129 H Pulse Rate [orthos tatic lying Left P ulse Oximeter] Pulse Rate [orthos tatic sitting Left Pulse Oximeter] Respiratory Rate 19 32 H 32 H Blood Pressure Blood Pressure [Ri ght Arm] 145/87 H Blood Pressure [Ri ght Upper Arm] Blood Pressure [or thostatic lying Ri ght Arm] Blood Pressure [or thostatic sitting Right Arm] Pulse Oximetry 95 95 Oxygen Delivery Me thod Room Air Room Air 01/12/25 23:00 01/12/25 23:41 01/13/25 00:13 Temperature 98.3 F Pulse Rate 113 H Pulse Rate [Pulse Oximeter] 120 H 122 H Pulse Rate [orthos tatic lying Left P ulse Oximeter] Pulse Rate [orthos tatic sitting Left Pulse Oximeter] Respiratory Rate 22 20 Blood Pressure Blood Pressure [Ri ght Arm] 184/98 H Blood Pressure [Ri ght Upper Arm] Blood Pressure [or thostatic lying Ri ght Arm] Blood Pressure [or thostatic sitting Right Arm] Pulse Oximetry 95 Oxygen Delivery Me thod Room Air 01/13/25 02:36 01/13/25 08:08 01/13/25 08:08 Temperature 98.6 F 99.1 F Pulse Rate Pulse Rate [Pulse Oximeter] 120 H 101 H 101 H Pulse Rate [orthos tatic lying Left P ulse Oximeter] Pulse Rate [orthos tatic sitting Left Pulse Oximeter] Respiratory Rate 22 28 H 28 H Blood Pressure Blood Pressure [Ri ght Arm] 139/80 121/80 Blood Pressure [Ri ght Upper Arm] Blood Pressure [or thostatic lying Ri ght Arm] Blood Pressure [or thostatic sitting Right Arm] Pulse Oximetry 93 93 Oxygen Delivery Me thod Room Air Room Air 01/13/25 09:14 01/13/25 11:22 Temperature 97.4 F L Pulse Rate 104 H Pulse Rate [Pulse Oximeter] 114 H Pulse Rate [orthos tatic lying Left P ulse Oximeter] Pulse Rate [orthos tatic sitting Left Pulse Oximeter] Respiratory Rate 26 H Blood Pressure Blood Pressure [Ri ght Arm] Blood Pressure [Ri ght Upper Arm] Blood Pressure [or thostatic lying Ri ght Arm] Blood Pressure [or thostatic sitting Right Arm] Pulse Oximetry 95 Oxygen Delivery Me thod Labs Labs: Laboratory Results - last 24 hr 01/12/25 01/12/25 01/12/25 14:00 14:02 14:25 WBC 26.25 H* RBC 3.60 L Hgb 11.2 L Hct 33.9 L MCV 94 MCH 31 MCHC 33 RDW Coeff of Maribel 12.7 Plt Count 428 Neut % (Auto) 94.0 H Lymph % (Auto) 1.4 L [place] % (Auto) 3.8 Eos % (Auto) 0.0 Baso % (Auto) 0.0 Neut # (Auto) 24.70 H Lymph # (Auto) 0.40 L [place] # (Auto) 1.00 H Eos # (Auto) 0.00 Baso # (Auto) 0.00 Abs Immat Gran (auto) 0.20 Imm/Tot Granulo (auto) 0.8 Diff Slide Review Acceptable Review INR VBG pH VBG pCO2 VBG pO2 VBG HCO3 Sodium 129 L Potassium 5.2 H Chloride 97 Carbon Dioxide 17 L Anion Gap 15 BUN 29 Creatinine 1.5 Estimated Creat Clear 56.93 Estimated GFR 49 Glucose 509 H* Lactate 5.3 H* Calcium 8.6 Magnesium Total Bilirubin 0.6 AST 35 ALT 86 H Alkaline Phosphatase 226 H Total Protein 6.4 Albumin 3.1 L Urine Color Urine Appearance Urine pH Ur Specific [place] Urine Protein Urine Glucose (UA) Urine Ketones Urine Blood Urine Nitrite Urine Bilirubin Urine Urobilinogen Ur Leukocyte Esterase Urine RBC Urine WBC Ur Squamous Epith Cells Urine Bacteria Fine Granular Casts SARS-CoV-2 (PCR) Negative SARS-CoV-2 Influenza Type A (PCR) Negative PCR FLU A Influenza Type B (PCR) Negative PCR FLU B RSV (PCR) Negative PCR RSV POC Glucose POC Troponin I 0.03 01/12/25 01/12/25 01/12/25 15:13 15:50 17:00 WBC RBC Hgb Hct MCV MCH MCHC RDW Coeff of Maribel Plt Count Neut % (Auto) Lymph % (Auto) [place] % (Auto) Eos % (Auto) Baso % (Auto) Neut # (Auto) Lymph # (Auto) [place] # (Auto) Eos # (Auto) Baso # (Auto) Abs Immat Gran (auto) Imm/Tot Granulo (auto) Diff Slide Review INR VBG pH 7.37 VBG pCO2 40 VBG pO2 34.1 VBG HCO3 24 Sodium Potassium Chloride Carbon Dioxide Anion Gap BUN Creatinine Estimated Creat Clear Estimated GFR Glucose Lactate 2.8 H Calcium Magnesium Total Bilirubin AST ALT Alkaline Phosphatase Total Protein Albumin Urine Color Yellow Urine Appearance Clear Urine pH 5.5 Ur Specific [place] 1.020 Urine Protein 1+ A Urine Glucose (UA) 2+ A Urine Ketones Trace A Urine Blood Negative Urine Nitrite Negative Urine Bilirubin Negative Urine Urobilinogen 0.2 Ur Leukocyte Esterase Negative Urine RBC 0-2 Urine WBC 0-2 Ur Squamous Epith Cells None Urine Bacteria Few A Fine Granular Casts Few A SARS-CoV-2 (PCR) Influenza Type A (PCR) Influenza Type B (PCR) RSV (PCR) POC Glucose POC Troponin I 01/12/25 01/13/25 17:56 05:45 WBC 28.52 H* RBC 3.44 L Hgb 10.6 L Hct 31.9 L MCV 93 MCH 31 MCHC 33 RDW Coeff of Maribel 12.8 Plt Count 411 Neut % (Auto) 89.3 H Lymph % (Auto) 4.4 L [place] % (Auto) 5.8 Eos % (Auto) 0.0 Baso % (Auto) 0.0 Neut # (Auto) 25.50 H Lymph # (Auto) 1.30 [place] # (Auto) 1.70 H Eos # (Auto) 0.00 Baso # (Auto) 0.00 Abs Immat Gran (auto) 0.10 Imm/Tot Granulo (auto) 0.5 Diff Slide Review INR 1.36 H VBG pH 7.409 VBG pCO2 36 L VBG pO2 42.4 VBG HCO3 23 Sodium 134 L Potassium 4.4 Chloride 104 Carbon Dioxide 20 Anion Gap 10 BUN 27 Creatinine 1.3 Estimated Creat Clear 65.68 Estimated GFR 59 Glucose 310 H Lactate 1.7 Calcium 8.5 Magnesium 1.6 Total Bilirubin 0.5 AST 38 H ALT 80 H Alkaline Phosphatase 204 H Total Protein 6.0 Albumin 2.9 L Urine Color Urine Appearance Urine pH Ur Specific [place] Urine Protein Urine Glucose (UA) Urine Ketones Urine Blood Urine Nitrite Urine Bilirubin Urine Urobilinogen Ur Leukocyte Esterase Urine RBC Urine WBC Ur Squamous Epith Cells Urine Bacteria Fine Granular Casts SARS-CoV-2 (PCR) Influenza Type A (PCR) Influenza Type B (PCR) RSV (PCR) POC Glucose 385 H* POC Troponin I
--- NOTE | 2025-01-13 11:38 | W.PC.NUTR.HO ---
Hospital Nutrition Assessment Patient Data Patient Gender: Male Patient Age: 69 Height: 6 ft 5 in Weight: 206 lb 3.2 oz Body Mass Index: 24.4 Usual Body Weight: 220 lb (Approximately 2 weeks ago per patient report. ) Weight Calculations [place] Body Weight (lbs): 208.00 [place] Body Weight (kg): 94.35 Percent of [place] Body Weight: 99 Adjusted Body Weight (lbs): 207.55 Adjusted Body Weight (kg): 94.14 Percent of Usual Body Weight: 94 Basal Energy Expenditure (BEE): 1850.01 Basal Energy Expenditure (BEE) Adjusted Weight: 1858.39 Activity/Stress Factors Injury Factor/Activity Factor Value: 1.3 Total Energy Requirements Kcal requirements (current wt): 2405.013 Kcal requirements (adj wt): 2415.907 Protein Need (current wt): 1.0 Total Protein (current wt): 93.531 Protein Need (adj wt): 1.0 Total Protein (adj wt): 94.140 Fluid Need (current wt): 27 Total Fluid (current wt): 2525.330 Fluid Need (adj wt): 27 Total Fluid (adj wt): 2541.78 Nutrition Assessment Diet Order: Regular Food Modified for Dysphagia: 7-Regular Liquid Modified for Dysphagia: 0-Thin Allergies: NKFA Appetite Prior to Admission: Poor (Decreased appetite for ~2 weeks prior to admission. ) Appetite and Intake: 25% at breakfast this morning per professional development director. Supplements and/or snacks: Premier Protein Comment: Once daily at 10am. Hx Appetite Changes: Yes (Decreased for ~2 weeks prior to admission. ) Hx Weight Loss: Yes (Patient reports weight loss 14lbs or 6.4%, which is clinically significant.) Hx Weight Gain: No Nausea: No Vomiting: No Diarrhea: No Hx Constipation: No Chewing Difficulty: No Swallowing Difficulty: No Pressure Ulcer: No Diagnosis/Symptom or Procedure: Left lower lobe pneumonia, sepsis Clinical History: Medical history includes, but not limited to: hyperglycemia, stage 1 squamous cell carcinoma (follows [facility], not currently receiving treatment), elevated LFTs, non-insulin dependent diabetes mellitus, stroke, tobacco use, mechanical fall, abdominal aneurysm, and CKD stage 3b. Current Living Situation: Home with . Medications Medications: Reviewed. Lab Results Lab Results: Reviewed. Education Dietary Topic: High Calorie/High Protein Topic Comment: Nutrition education was provided to patient on high protein, high calorie diet related to weight loss and decreased oral intakes. Discussed foods that are high in calories and protein, as well as the use of nutrition supplements such as Ensure Enlive and Boost to help meet daily energy needs. Also discussed frequent small meals (5-6x/day) may be more easily managed instead of 3 big meals daily. Handout reviewed and provided to patient from [facility] on High-Calorie, High-Protein diet. Patient verbalized understanding. RDN's contact information was provided and patient was encouraged to contact RDN with questions. Response to Teaching: Verbalize Understanding Teaching Methods: Verbal and Handout Teaching Recipient: Patient, Family and Designated Caregiver Assessment/Plan PES Statement: Inadequate oral intakes related to decreased appetite as evidenced by patient report of decreased oral intakes for ~2 weeks prior to admission and weight loss of 14lbs or 6.4% in ~ 2-3 weeks per patient report. Nutritional Assessment Summary: RDN with +MST for weight loss and eating poorly. RDN visited with patient and family in room on this day. Patient reports a poor appetite and decreased oral intakes for ~2 weeks. Patient reports eating smaller amounts at all meals. Patient notes trying Orgain 1-2 times per month. Per professional development director, patient ate 25% of breakfast this morning. No recent weight history available to review at this time. Patient reports a UBW of ~220 lbs approximately 2 weeks ago indicating a weight loss of 14lbs or 6.4%, which is clinically significant. RDN will continue to follow weight trends during hospitalization. Patient is accepting of Premier protein once daily at 10am. This provides ~160 kcals and 30 grams protein. Goals: Adequate oral intakes 50%+ at meals, snacks, and nutrition supplements. No s/s of dehydration. Plan/Recommendation: Regular diet per MD order. Premier Protein once daily at 10am as patient accepts. RDN will continue to monitor and follow-up prn. Malnutrition Assessment Current Energy Intake: Less Than 75% Estimated Timeframe Of Energy Intake: Greater Than Or Equal To 7 Days Weight Changes: >2% In 1 Week Recommended Malnutrition Diagnosis: Further Physical Evaluation Required By MD To Determine
--- NOTE | 2025-01-13 11:46 | PC.SOCIAL ---
Met with pt. and spouse Gracia @ [phone] to discuss discharge plans. Pt. has had increased weakness over the past couple of weeks and Gracia was assisting pt. at home. Pt. had [facility] lined up to start 01/12/25 and they did their initial evaluation to start services and then pt. ended up in the hospital. Gracia states [facility] was going to see pt. but. pt. refused due to feeling so poorly and ended up coming to the hospital. Pt. is hoping to be able to return home with home care if needed and spouse support. Pt. is currently a 2-person assist. Discussed short-term rehab options if needed for discharge. Gracia and pt. prefer placement in and near [place]. Choices are [facility], [facility] in [facility] and then [facility] in [place]. equipment services associate will continue to work on discharge planning needs.
[2025-01-13] MEDS: VANCOMYCIN 1 GM/200 ML 1 GM/200 ML PIGGYBACK IVPB (12:20)
[2025-01-13 13:19] LABS: Hematocrit* 28.9 % (37.0-53.0); Hemoglobin* 9.7 gm/dL (13.5-17.5); Immature Granulocytes Pct Auto 0.4 %; Mean Corpuscular HGB Conc 34 gm/dL (32-36); Mean Corpuscular Hemoglobin 31 pg (26-34); Mean Corpuscular Volume 93 fL (80-100); RDW Coefficient of Variation % 12.8 % (11.5-15.5); Red Blood Count* 3.10 m/uL (4.30-5.90); White Blood Count* 24.75 K/uL (4.50-11.00)
[2025-01-13 13:22] LABS: Immature Granulocytes Abs Auto 0.10 K/uL (0.00-0.30); Lymphocytes Absolute Auto 1.10 K/uL (0.90-2.90); Slide Review Reflex No
[2025-01-13 14:41] LABS: S pneumo Ag Urine S. pneumo Negative (Negative)
[2025-01-13] MEDS: ATORVASTATIN CALCIUM 40 MG TABLET 80 MG PO (18:07)
--- NOTE | 2025-01-13 18:58 | PC.NURSE ---
Addendum entered by Caridad Nation RN 01/13/25 19:09: Blood sugars were 307, 304, 216. Tele=Tachy. Original Note: End of Shift: Patient pleasant and cooperative. Patient is vitally stable(tachy on and off), lungs with crackles, BS WNL, IV running NS at 125. Patient would spend all his time in bed if he could, patient needs encouragement to sit in the chair. Patient was up in chair for two meals. Patient does not have much of an appetite, ate about 25% of two meals and drank about half of an ensure. Patient rates ankle/feet pain (neuropathy) at most 8/10, norco given x2. Patient is incontinent but also uses the urinal, more incontinent than using the urinal. Patient will report he needs to use the urinal and then no urine will empty but he will have wet briefs. Bladder scan was performed and only 30 ml were found. Patient is 1 assist/walker.
[2025-01-13] MEDS: AMITRIPTYLINE HCL 10 MG TABLET PO (20:53)
[2025-01-13] MEDS: SODIUM CHLORIDE 0.9 % (FLUSH) 10 ML SYRINGE 5 ML IVF (20:54)
[2025-01-14] VITALS (7 sets, daily range): BP systolic 118–147; BP diastolic 80–93; PULSE 86–116; RESP 16–20; TEMP 36.3–37; O2SAT 92–95
[2025-01-14] MEDS: VANCOMYCIN 1 GM/200 ML 1 GM/200 ML PIGGYBACK IVPB ×2 (01:04→13:05)
[2025-01-14 05:47] LABS: HCO3 VBG 21 mmol/L (21-28); PCO2 VBG 32 mmHG (40-50); PO2 VBG 38.7 mmHG (25-47); pH VBG 7.419 (7.32-7.43)
[2025-01-14 05:54] LABS: Hematocrit* 28.2 % (37.0-53.0); Hemoglobin* 9.3 gm/dL (13.5-17.5); Mean Corpuscular HGB Conc 33 gm/dL (32-36); Mean Corpuscular Hemoglobin 31 pg (26-34); Mean Corpuscular Volume 94 fL (80-100); Red Blood Count* 3.00 m/uL (4.30-5.90); White Blood Count* 19.77 K/uL (4.50-11.00)
[2025-01-14 05:59] LABS: Slide Review Reflex No
[2025-01-14 06:09] LABS: Albumin* 2.3 g/dL (3.3-5.0); Chloride* 107 mmol/L (96-114); Sodium* 133 mmol/L (135-149)
[2025-01-14 06:10] LABS: Potassium* 4.2 mmol/L (3.6-5.1)
[2025-01-14 06:12] LABS: Alanine Aminotransferase* 80 U/L (4-50); Aspartate Amino Transferase* 63 U/L (12-35); Blood Urea Nitrogen* 25 mg/dL (7-30); Creatinine* 1.3 mg/dL (0.5-1.5); Est. Creatinine Clearance* 65.68; Estimated Glomerular Filt Rate 59 ml/min
[2025-01-14 06:13] LABS: Alkaline Phosphatase* 176 U/L (40-150); Anion Gap 6 mEq/L (7-15); Bilirubin Total* 0.7 mg/dL (0.1-1.5); Calcium* 8.0 mg/dL (8.4-10.6); Carbon Dioxide* 20 mmol/L (20-32); Glucose* 195 mg/dL (60-115); Total Protein* 5.1 g/dL (6.0-8.3)
[2025-01-14] MEDS: PIPERACILLIN/TAZOBACTAM 3.375 GM in 0.9 % SODIUM CHLORIDE Mini-bag 100 ML IVPB ×4 (06:34→23:31)
--- NOTE | 2025-01-14 06:49 | PC.NURSE ---
End of shift:?Pt pleasant,?alert?and oriented,?though?does have periods of confusion.?Tele reads?NSR with PACs.?Pt hypertensive, otherwise, VSS.?Pt has a moist cough with some?sputum, encouraged to cough it out.?Denies pain. Pt weak throughout?the shift,?needing?assistance?to sit and stay up at bedside. ?2a when up. Pt incontinent.?Pt in bed, appears to be?resting, call light within reach.??
[2025-01-14] MEDS: AMLODIPINE 10 MG TABLET PO (09:13)
[2025-01-14] MEDS: APIXABAN 5 MG TABLET PO ×2 (09:13→21:14)
[2025-01-14 10:24] LABS: D Dimer Quantitative* 2.80 ug/ml (0.00-0.50)
--- NOTE | 2025-01-14 10:45 | CRLHL7_ITS ---
For Patients: As a result of the Century Cures Act, medical imaging exams and procedure reports are released immediately into your electronic medical record. You may view this report before your referring provider. If you have questions, please contact your health care provider. INDICATION: Tachycardia, D-dimer, rule out PE, history of lung cancer. TECHNIQUE: CT chest angio was acquired with 95 cc Isovue 370 IV contrast. Images and 3D Angiographic MIP reconstructions are obtained COMPARISON: CT chest December 07, 2024 FINDINGS: Heart and vasculature: Contrast opacification of the pulmonary arterial tree is adequate. No sign of pulmonary embolism. Heart size is normal. Thoracic aorta and pulmonary artery are normal in caliber. Coronary artery calcification. Lungs and pleura: Known case of squamous cell carcinoma of left lower lobe, status post radiation. The mass measures about 5.4 x 4.9 cm on coronal plane. Encasement and mild narrowing of the left lower lobe segmental bronchi are similar to previous exam. There is new moderate partially loculated left pleural effusion. Loculated effusion is also present along oblique fissure. Patchy ground-glass opacities and interlobular septal thickening is identified, most pronounced in the lower lobe. Difficult assessment of the another solid nodule at the left lower lobe given the presence of pleural effusion. Mild right basilar atelectasis and dependent ground-glass opacities. No right effusion or pneumothorax. Lymph nodes/mediastinum: Few subcentimeter sized mediastinal lymph nodes. Prominent bilateral hilar lymph nodes are also identified, largest on the right side measures 18 x 15 mm, increased in size in comparison to previous CT from August 2024. On the left side it measures 17 x 17 mm. Mm, Chest wall: No masses. Upper abdomen: Cholelithiasis. Otherwise, no acute abnormality. Bones: Multilevel degenerative changes of the spine. No concerning bony lesion. IMPRESSION: 1. No pulmonary embolism. 2. Known case of Left lower lobe squamous cell carcinoma, status post radiation. 3. New moderate partially loculated left Pleural effusion, which obscures left lower lobe solid nodule. 4. Enlarged bilateral hilar lymph nodes, likely reactive. Although metastasis can not be excluded. Please note that all CT scans at this facility use dose modulation, iterative reconstruction, and/or weight-based dosing when appropriate to reduce radiation dose to as low as reasonably achievable. Dictated by Anika Kate MD @ 01/14/2025 11:48:03 AM (Electronically Signed)
[2025-01-14] MEDS: 0.9 % SODIUM CHLORIDE 500 ML 500 ML IV (11:36)
--- NOTE | 2025-01-14 12:26 | PC.SOCIAL ---
Addendum entered by JACQUELINE Hewitt 01/14/25 16:05: If pt is discharged over the weekend, RN to fax discharge orders with H&P and face sheet to [facility] at fax#[phone] to resume home care. Original Note: Discharge planning: Met again with regarding d/c plan. states pt wants to come home but she is not sure he will be able to go home. She states she will make that decision when the doctor decides he is ready to leave the hospital. Offered to discuss options and work on a back-up plan today. states she wants to plan for discharge home and wants [facility] resumed at discharge. states she will accept resources for placement to look over in case the plan changes and he wants rehab placement. stoneworker to follow up as needed.
[2025-01-14] MEDS: INSULIN ASPART 100 UNIT/ML SUBCUT ×3 (13:04→21:22)
--- NOTE | 2025-01-14 14:51 | P.IMPN_ITS ---
Assessment and Plan Assessment and plan (1) Sepsis: Problem comment: - severe sepsis given WBC 26, lactate 5.3, tachycardia, intermittent tachypnea, suspected pulmonary - received 2.5 L NS followed by 125 maintenance - will give additional bolus now - lactate improved to 1.7, leukocytosis -> 28, VBG pH 7.409, pCO2 36, PO2 42, HC03 23, LFTs elevated - continue Zosyn, continue vancomycin - prelim MRSA growing Gram-positive cocci - BC x2 NGTD, UC mixed liss, MRSA gram-positive cocci - strep pneumo/Legionella negative, viral respiratory panel remains pending Status: Acute (2) Left lower lobe pneumonia: Problem comment: - as evidenced by new weakness (progressive 3 weeks), L rib pain, tachypnea, tachycardia, leukocytosis, decreased breath sounds - CT chest shows Within the area of the known previously treated malignancy in the left lower lobe, there is significant increase in size of soft tissue along with a new small to moderate and partially loculated left pleural effusion and suspected increasing left hilar lymphadenopathy. Differential would include disease progression, aggressive appearing postradiation change/necrosis, and infection - Ceftriaxone and Doxycycline (01/12/25) in ED, changed to Zosyn on admission 01/12, added Vancomycin 01/13 - unlikely to have PE given treatment with Eliquis - management as above - patient to reschedule outpatient PET scan which would help to differentiate malignancy 01/13 tachycardia improved following NS bolus, tachypnea improving 01/14 tachycardic again, intermittent. CTA PE study negative for PE Status: Acute (3) Hyperglycemia: Problem comment: - without acidosis or anion gap, likely worsened by recent 7 day prednisone bu rst - follow accuchecks, + SSI, holding home oral medications (Glipizide, Metformin, Januvia) - increased sliding scale to #3 - decrease when appropriate Status: Acute (4) Elevated LFTs: Problem comment: - no abdominal pain, reassuring exam - AST 38, ALT down trending 80, alk phos down trending to 0.4, total bili 0.5, continue to monitor - follow LFTs Status: Acute (5) Squamous cell carcinoma of lung, stage I: Problem comment: - diagnosed 07/17, [id number] Stage 1A2 - follows with [facility] in [place] - was due for PET scan 01/13 ( will rescheduled 2/2 hospitalization) - CT shows developing cavitation, loculated pleural effusion, outpatient follow-up Status: Acute (6) Non-insulin dependent diabetes mellitus: Problem comment: - A1C 9.7 01/03/25 - accuchecks and sliding scale, holding home meds given elevated lactate Status: Acute (7) Tobacco use: Problem comment: - active, approximately 15 cigarettes/day, declines scheduled nicotine replacement Status: Acute (8) Stroke: Problem comment: - history of, chronic - L cerebral hemisphere (2022), posterior cerebral hemispheres and L basal ganglia + L frontal and parietal lobs (2023) - on high dose statin + Apixaban, residual R sided weakness Status: Acute (9) Colitis: Problem comment: - CT shows Multifocal areas of mild bowel wall thickening and slight adjacent stranding greatest along the sigmoid colon suspicious for mild multifocal colitis - no abdominal pain, benign abdominal exam, normal BM Status: Acute (10) Physical deconditioning: Problem comment: - per , leans on her when ambulating, refusing to use walker, mostly sedentary - PT/OT consults, sr. social media & mobile manager for discharge planning/placement needs 01/14 - PT assessed, no outpatient therapies or SNF recommended at this time, likely able to discharge home as he continues to clinically improve. Recommend resume home health cares on discharge Status: Acute Plan Continue IV antibiotics, transition to oral likely 01/15 and discharge to home if continued clinical improvement. Resume home health cares on discharge Total Time Spent Total Time Spent: Today I spent 55 minutes seeing the patient, reviewing Expanse and EPIC notes/diagnostics, discussing the care plan with our care time that includes social work, PT/OT, pharmacy, RT, senior care and documenting my impressions and plan in the medical record. Subjective Date Seen: 01/14/25 Interval history: Patient is seen with at bedside. Is sitting up in a chair this morning and looks much brighter. Feeling better. Less restless. Denies headache or dizziness. Denies chest pain or shortness of breath. No nausea or vomiting, tolerating orals. WBC downtrending 19.77 Hemoglobin 9.3 (no acute bleed reported) D-dimer 2.8 (positive when age adjusted) Sodium 133 Glucose improving < 300 LFTs remain elevated, monitoring Viral culture pending BCx2 NGTD UC mixed Gram-positive liss MRSA growing Gram-positive cocci Exam Narrative: Exam Narrative: PHYSICAL EXAM General: Pleasant, conversant, NAD HEENT: Normocephalic, atraumatic, sclera white, EOMI, oral mucosa moist Cardiovascular: RRR, S1S2. No pitting edema Pulmonary: CTA bilaterally without rhonchi, rales, expiratory wheezes. No dyspnea on RA Neurological: Alert, answering questions appropriately, cranial nerves intact, no focal findings Extremities: No gross joint deformity or swelling. AROMI. Neurovascularly intact Skin: Warm, dry. Const: Vital Signs, click to edit/add: Vital Signs - 24 hr 01/13/25 15:00 01/13/25 15:09 01/13/25 20:51 Temperature 98.2 F Pulse Rate 92 Pulse Rate [Pulse Oximeter] 95 108 H Respiratory Rate 24 18 Blood Pressure [Le ft Arm] 129/84 Pulse Oximetry 93 Oxygen Delivery Me thod 01/13/25 23:00 01/13/25 23:01 01/13/25 23:35 Temperature 98.3 F Pulse Rate 96 Pulse Rate [Pulse Oximeter] 102 H 102 H Respiratory Rate 20 20 Blood Pressure [Le ft Arm] 112/92 H Pulse Oximetry 91 Oxygen Delivery Me thod Room Air 01/14/25 02:57 01/14/25 07:00 01/14/25 07:00 Temperature 98.6 F Pulse Rate 97 Pulse Rate [Pulse Oximeter] 116 H 98 Respiratory Rate 18 16 Blood Pressure [Le ft Arm] 142/87 H Pulse Oximetry 93 Oxygen Delivery Me thod 01/14/25 08:15 01/14/25 11:45 Temperature 97.6 F 97.9 F Pulse Rate Pulse Rate [Pulse Oximeter] 98 106 H Respiratory Rate 16 18 Blood Pressure [Le ft Arm] 128/86 118/80 Pulse Oximetry 93 95 Oxygen Delivery Me thod Room Air Room Air Labs Labs: Laboratory Results - last 24 hr 01/12/25 01/14/25 01/14/25 14:25 05:09 09:58 WBC 19.77 H RBC 3.00 L Hgb 9.3 L Hct 28.2 L MCV 94 MCH 31 MCHC 33 Plt Count 337 D-Dimer Quant (PE/DVT) 2.80 H VBG pH 7.419 VBG pCO2 32 L VBG pO2 38.7 VBG HCO3 21 Sodium 133 L Potassium 4.2 Chloride 107 Carbon Dioxide 20 Anion Gap 6 L BUN 25 Creatinine 1.3 Estimated Creat Clear 65.68 Estimated GFR 59 Glucose 195 H Calcium 8.0 L Total Bilirubin 0.7 AST 63 H ALT 80 H Alkaline Phosphatase 176 H C-Reactive Protein 8.3 H Total Protein 5.1 L Albumin 2.3 L Beta-Hydroxybutyric Acd 0.96 H Lab Acknowledgement Test Added
--- NOTE | 2025-01-14 16:24 | REH.OT ---
OT spoke with RN who reported Pt has been very sedentary and to encourage OT participation. Upon arrival in room Pt was being tucked into bed and given a warm blanket by the NA, and stated dinner was coming. Pt was educated on benefits of participating in OT, eating in the chair and on consquences with discharge if he was too weak to go home. Pt politely declining and refusing all OT, stating he promised to walk tomorrow.
[2025-01-14] MEDS: ATORVASTATIN CALCIUM 40 MG TABLET 80 MG PO (17:53)
--- NOTE | 2025-01-14 19:23 | PC.NURSE ---
End of Shift: Patient pleasant and cooperative, A&O, but periods of confusion. VSS, afebrile. SpO2 maintained above 90% on RA. 2A due to weakness. Encouraged ambulation this shift, pt refused. Pt refused breakfast and dinner this shift. SSI given per MD anyway this afternoon due to hyperglycemia. Incontinent this shift. ? ?
[2025-01-14] MEDS: AMITRIPTYLINE HCL 10 MG TABLET PO (21:14)
[2025-01-14] MEDS: SODIUM CHLORIDE 0.9 % (FLUSH) 10 ML SYRINGE 5 ML IVF (21:15)
[2025-01-15] MEDS: HYDROCODONE-ACETAMIN 5-325 MG 1 TAB PO (00:01)
[2025-01-15] MEDS: VANCOMYCIN 1 GM/200 ML 1 GM/200 ML PIGGYBACK IVPB (00:03)
[2025-01-15 03:00] VITALS: BP 117/78; PULSE 88; RESP 22; TEMP 36.6; O2SAT 92
--- NOTE | 2025-01-15 05:05 | PC.NURSE ---
End of shift report [id number]: VSS.?Afebrile.?On RA. Pt rates BLE neuropathy pain a 08/03,?prn pain meds offered and?given with?relief. Pt is?incont?of urine.?Ambulates?2A, GB, W. Pt reports decreased?appetite;?HS blood sugar was 249, 4 units?of insulin?given per MD?Sherrill.?Bed alarm on, call light within reach.?
[2025-01-15] MEDS: PIPERACILLIN/TAZOBACTAM 3.375 GM in 0.9 % SODIUM CHLORIDE Mini-bag 100 ML IVPB (05:51)
[2025-01-15 06:23] LABS: Hematocrit* 27.9 % (37.0-53.0); Hemoglobin* 9.1 gm/dL (13.5-17.5); Mean Corpuscular HGB Conc 33 gm/dL (32-36); Mean Corpuscular Hemoglobin 31 pg (26-34); Mean Corpuscular Volume 94 fL (80-100); Red Blood Count* 2.97 m/uL (4.30-5.90); White Blood Count* 16.90 K/uL (4.50-11.00)
[2025-01-15 06:24] LABS: HCO3 VBG 20 mmol/L (21-28); PCO2 VBG 33 mmHG (40-50); PO2 VBG 42.2 mmHG (25-47); pH VBG 7.389 (7.32-7.43)
[2025-01-15 06:42] LABS: Sodium* 134 mmol/L (135-149)
[2025-01-15 06:43] LABS: Albumin* 2.3 g/dL (3.3-5.0); Potassium* 3.8 mmol/L (3.6-5.1)
[2025-01-15 06:45] LABS: Blood Urea Nitrogen* 25 mg/dL (7-30); Creatinine* 1.3 mg/dL (0.5-1.5); Est. Creatinine Clearance* 65.68; Estimated Glomerular Filt Rate 59 ml/min
[2025-01-15 06:46] LABS: Alanine Aminotransferase* 84 U/L (4-50); Alkaline Phosphatase* 206 U/L (40-150); Aspartate Amino Transferase* 68 U/L (12-35); Bilirubin Total* 0.7 mg/dL (0.1-1.5); Calcium* 7.9 mg/dL (8.4-10.6); Carbon Dioxide* 18 mmol/L (20-32); Glucose* 219 mg/dL (60-115); Total Protein* 5.0 g/dL (6.0-8.3)
[2025-01-15 06:57] LABS: Anion Gap 6 mEq/L (7-15); Chloride* 110 mmol/L (96-114)
[2025-01-15 07:00] VITALS: PULSE 100; PULSE 85; RESP 18
[2025-01-15 07:06] LABS: Slide Review Reflex No
[2025-01-15 09:00] VITALS: BP 106/73; PULSE 131; RESP 20; O2SAT 97
[2025-01-15] MEDS: APIXABAN 5 MG TABLET PO (09:29)
[2025-01-15] MEDS: AMLODIPINE 10 MG TABLET PO (09:29)
[2025-01-15] MEDS: SODIUM CHLORIDE 0.9 % (FLUSH) 10 ML SYRINGE 5 ML IVF (09:30)
[2025-01-15] MEDS: INSULIN ASPART 100 UNIT/ML SUBCUT (09:32)
--- NOTE | 2025-01-15 12:39 | PM.DS1 ---
DS: Providers Provider Time Seen by Provider: 12:10 Date Seen: 01/15/25 Date of admission: 01/12/25 18:57 Primary care physician: Dorinda Washington DO Admitting Clinician: Zenobia Mccartney MD Consults: 01/13/25 Consult to Physical Therapy [CONS] Routine Comment: Reason(s) for PT Consult:: Evaluate and Treat Any Restrictions?:: No Restrictions 01/13/25 10:39 Consult to Occupational Therapy [CONS] Routine Comment: Reason(s) for OT Consult:: Evaluate and Treat Any Restrictions?:: No Restrictions Consult to Physical Therapy [CONS] Routine Comment: Reason(s) for PT Consult:: Evaluate and Treat Any Restrictions?:: No Restrictions Attending Physician on discharge: Renae Mendes MD Date of Discharge: 01/15/25 DS: Diagnosis Discharge Diagnosis (1) Sepsis: Status: Acute Problem details: - severe sepsis given WBC 26, lactate 5.3, tachycardia, intermittent tachypnea, suspected pulmonary - received 2.5 L NS followed by 125 maintenance - will give additional bolus now - lactate improved to 1.7, leukocytosis -> 28, VBG pH 7.409, pCO2 36, PO2 42, HC03 23, LFTs elevated - BC x2 NGTD, UC mixed liss, MRSA screen negative - strep pneumo/Legionella negative, viral respiratory panel remains pending (2) Left lower lobe pneumonia: Status: Acute Problem details: - as evidenced by new weakness (progressive 3 weeks), L rib pain, tachypnea, tachycardia, leukocytosis, decreased breath sounds - CT chest shows Within the area of the known previously treated malignancy in the left lower lobe, there is significant increase in size of soft tissue along with a new small to moderate and partially loculated left pleural effusion and suspected increasing left hilar lymphadenopathy. Differential would include disease progression, aggressive appearing postradiation change/necrosis, and infection - Ceftriaxone and Doxycycline (01/12/25) in ED, changed to Zosyn on admission 01/12, added Vancomycin 01/13 - unlikely to have PE given treatment with Eliquis - management as above - patient to reschedule outpatient PET scan which would help to differentiate malignancy 01/13 tachycardia improved following NS bolus, tachypnea improving 01/14 tachycardic again, intermittent. CTA PE study negative for PE 01/15 No hypoxia on RA, Did well with PT/OT today. Sinus tachycardia with activity, which is not new (also seen 11/19/24 - see EKG from that date). Discussed with patient and that he should go ahead and get the previously ordered outpatient PET scan and f/u with Dr. Washington to determine if pneumonia has cleared and if there is any malignancy (3) Hyperglycemia: Status: Acute Problem details: - without acidosis or anion gap, likely worsened by recent 7 day prednisone burst - follow accuchecks, + SSI, holding home oral medications (Glipizide, Metformin, Januvia) - increased sliding scale to #3 - decrease when appropriate (4) Elevated LFTs: Status: Acute Problem details: - no abdominal pain, reassuring exam - AST 38, ALT down trending 80, alk phos down trending to 0.4, total bili 0.5, continue to monitor - stable. Exam benign. F/u as outpatient (5) Squamous cell carcinoma of lung, stage I: Status: Acute Problem details: - diagnosed 07/17, [id number] Stage 1A2 - follows with [facility] in [place] - was due for PET scan 01/13 ( will rescheduled 2/2 hospitalization) - CT shows developing cavitation, loculated pleural effusion, outpatient follow-up (6) Non-insulin dependent diabetes mellitus: Status: Acute Problem details: - A1C 9.7 01/03/25 - resume home meds (7) Tobacco use: Status: Acute Problem details: - active, approximately 15 cigarettes/day, declines scheduled nicotine replacement (8) Stroke: Status: Acute Problem details: - history of, chronic - L cerebral hemisphere (2022), posterior cerebral hemispheres and L basal ganglia + L frontal and parietal lobs (2023) - on high dose statin + Apixaban, residual R sided weakness (9) Colitis: Status: Acute Problem details: - CT shows Multifocal areas of mild bowel wall thickening and slight adjacent stranding greatest along the sigmoid colon suspicious for mild multifocal colitis - no abdominal pain, benign abdominal exam, normal BM (10) Physical deconditioning: Status: Acute Problem details: - per , leans on her when ambulating, refusing to use walker, mostly sedentary - PT/OT consults, social work administrator for discharge planning/placement needs 01/14 - PT assessed, no outpatient therapies or SNF recommended at this time, likely able to discharge home as he continues to clinically improve. Recommend resume home health cares on discharge 01/15 - PT/OT assessed. Patient adamant about going home, willing to take him as long as he agrees to therapies, which he did. I stressed that we recommend home nurse, PT, and OT. Resume these on discharge. DS: Summary Hospital Course Hospital Course: Chato He is a 69 year old male who presented to the ER by ambulance today for generalized weakness. He's noted this for 1-2 weeks, saw PCP for this in early December. Home health was ordered (but he has thusfar declined services), and treated with one week of Prednisone, (last dose today). Intermittent cough, no sputum or hemoptysis. He had a f/u appointment with his PCP but had a mechanical fall (pre-syncopal) in the garage and was too weak to get into the car. EMS called. ER: - HR 100-120s, RR 24-30s, 95% on RA - WBC 26 with 94% PMNs, lactate 5.3 --> 2.8, normal VBG - Na 129 (corrected 135), K 5.2, AST 86, Alk phos 226 - BG 509: received 10U of Insulin + IVF bolus with improvement to 385 - negative Head CT, LLL opacity on CXR (known mass, cannot exclude superimposed infection) Admitted for PNA in the setting of leukocytosis, tachypnea, elevated lactate, hyperglycemia. Sepsis, leukocytosis, tachypnea and lactate improved. Patient remained tachycardic with activity. Chest CT PE protocol was negative for PE. Patient was also noted to have tachycardia with ambulation in 2023. He was assessed by PT and OT and able to return home with home health. He is discharged today in improved condition. Please see diagnoses above for more details. Time Spent with Patient Time attestation: Total time spent providing and/or coordinating discharge services: Today I spent 40 minutes seeing and discharging the patient, discussing with the patient and his , reviewing Expanse and EPIC notes/diagnostics/labs, discussing the care plan with our care team that includes social work, PT/OT, pharmacy, RT, correction and documenting my impressions and plan in the medical record. Exam Narrative: Exam Narrative: General: No acute distress. Awake, alert, oriented. No pallor. No jaundice. Oropharynx: Clear. Mucous membranes moist. Cardiovascular: Regular rate and rhythm. No murmurs, gallops, or rubs. Respiratory: Diminished breath sounds at left base. Otherwise clear to auscultation bilaterally. No wheezes or crackles. Abdomen: Bowel sounds present. Soft, nondistended, nontender. Const: Vital Signs, click to edit/add: Vital Signs - 24 hr 01/14/25 15:00 01/14/25 15:00 01/14/25 15:00 Temperature 98.0 F Pulse Rate 86 Pulse Rate [Pulse Oximeter] 106 H 106 H Respiratory Rate 18 18 Blood Pressure [Le ft Arm] Blood Pressure [Ri ght Arm] 138/84 Pulse Oximetry 95 Oxygen Delivery Me thod Room Air 01/14/25 19:00 01/14/25 23:00 01/14/25 23:00 Temperature 97.4 F L 97.7 F Pulse Rate Pulse Rate [Pulse Oximeter] 87 92 Respiratory Rate 20 20 20 Blood Pressure [Le ft Arm] 147/93 H Blood Pressure [Ri ght Arm] 126/80 Pulse Oximetry 94 92 Oxygen Delivery Me thod Room Air Room Air 01/14/25 23:00 01/15/25 03:00 01/15/25 07:00 Temperature 97.9 F Pulse Rate 91 85 Pulse Rate [Pulse Oximeter] 88 Respiratory Rate 22 Blood Pressure [Le ft Arm] Blood Pressure [Ri ght Arm] 117/78 Pulse Oximetry 92 Oxygen Delivery Me thod Room Air 01/15/25 07:00 01/15/25 09:00 Temperature Pulse Rate Pulse Rate [Pulse Oximeter] 100 131 H Respiratory Rate 18 20 Blood Pressure [Le ft Arm] 106/73 Blood Pressure [Ri ght Arm] Pulse Oximetry 97 Oxygen Delivery Me thod DS: Data Data Completed and Pending Completed studies during hospitalization: 01/12/2025 EKG: Sinus tachycardia, 101 beats per minute, otherwise normal EKG. Sinus tach and bigeminy also noted on prior EKGs and there is a note on an EKG from 11/20/2023 that he also has tachycardia with standing. Ordering Physician: Eyad Garcia M.D. Date of Service: 01/12/25 Procedure(s): XR chest 2V Accession Number(s): [id number] cc: Eyad Garcia M.D.; Dorinda Washington D.O.~ For Patients: As a result of the Cures Act, medical imaging exams and procedure reports are released immediately into your electronic medical record. You may view this report before your referring provider. If you have questions, please contact your health care provider. Indication: Weakness, pneumonia? Technique: PA and lateral views of the chest. Comparison: Report 12/06/2024 Findings: Partial visualization of right shoulder arthroplasty. Moderate hiatal hernia. Left lower lobe opacity. Mild bibasilar opacities. No pleural effusions or visualized pneumothorax. Impression: Left lower lobe opacity may correspond to the patient`s reported left lower lobe mass. Superimposed infection can not be excluded. Dictated by Phillip Ingram MD @ 01/12/2025 2:59:52 PM (Electronically Signed) Ordering Physician: Eyad Garcia M.D. Date of Service: 01/12/25 Procedure(s): CT head/brain wo con Accession Number(s): [id number] cc: Eyad Garcia M.D.; Dorinda Washington D.O.~ For Patients: As a result of the Cures Act, medical imaging exams and procedure reports are released immediately into your electronic medical record. You may view this report before your referring provider. If you have questions, please contact your health care provider. INDICATION: Fall patient on blood thinners TECHNIQUE: CT head without contrast. COMPARISON: MRI brain October 2023 FINDINGS: No acute infarct or intracranial hemorrhage. No abnormal extra-axial fluid collection. Multiple small chronic cortical infarction in the left frontal and parietal lobe. Small chronic lacunar infarct in left mahajan radiata. Mild parenchymal atrophy. Scattered white matter hypodensities are nonspecific and are likely related to chronic microvascular ischemic changes. Skull base and calvarium: The visualized paranasal sinuses and mastoid air cells demonstrate no acute or significant findings. The visualized orbits are grossly unremarkable. No skull fractures. IMPRESSION: Chronic changes without acute intracranial abnormality. Please note that all CT scans at this facility use dose modulation, iterative reconstruction, and/or weight-based dosing when appropriate to reduce radiation dose to as low as reasonably achievable. Dictated by Anika Kate MD @ 01/12/2025 3:02:45 PM (Electronically Signed) Ordering Physician: Zenobia Mccartney M.D. Date of Service: 01/12/25 Procedure(s): CT chest abdomen pelv w con Accession Number(s): [id number] cc: Zenobia Mccartney M.D.; Dorinda Washington D.O.~ For Patients: As a result of the Cures Act, medical imaging exams and procedure reports are released immediately into your electronic medical record. You may view this report before your referring provider. If you have questions, please contact your health care provider. Indication: Tachypnea, cough, pneumonia, elevated LFTs, left lower lobe neoplasm Technique: Postcontrast CT of the chest, abdomen, and pelvis with multiplanar reformats following 97 mL Isovue 370 IV. Comparison: Multiple CTs of the chest, most recently 12/07/2024 Findings: Chest: Lungs: Within the area of treated malignancy in the left lower lobe, there is significant increase in size of soft tissue which now measures 6.8 x 6.2 centimeters with areas of internal gas which could represent developing cavitation. New [id number] left pleural effusion with areas of fluid loculation. Bibasilar scarring and/or atelectasis. No pneumothorax. Mediastinum: No acute abnormality appreciated. Lymph nodes: Suspected enlargement left hilar node measuring 12 millimeters. Soft tissues: No acute abnormality appreciated. Bones: No acute abnormality appreciated. Right shoulder replacement. Degenerative changes of the spine. Abdomen and Pelvis: Hepatobiliary: No significant parenchymal abnormality is appreciated. Cholelithiasis. Spleen: Unremarkable. Pancreas: No acute abnormality appreciated. Adrenal glands: No acute abnormality appreciated. Kidneys: Nonobstructing renal stones. No hydronephrosis. No acute parenchymal abnormality appreciated. Bowel: No obstruction. Multifocal areas of colonic wall thickening and mild adjacent stranding greatest in the sigmoid colon. The appendix is visualized and appears unremarkable. Vascular: No acute abnormality appreciated. Calcified and noncalcified atherosclerosis. Mild infrarenal abdominal aortic ectasia. Lymph nodes: No gross lymphadenopathy. Peritoneum: No free air. No free fluid. : No acute abnormality appreciated. Soft tissues: No acute abnormality appreciated. Fat containing left inguinal hernia. Right inguinal hernia contains a short segment of small bowel without convincing evidence of incarceration/strangulation at this time. Bones: No acute fracture. No lytic or blastic lesion. Right hip replacement. Degenerative changes of the spine and pelvis. Impression: 1. Within the area of the known previously treated malignancy in the left lower lobe, there is significant increase in size of soft tissue along with a new small to moderate and partially loculated left pleural effusion and suspected increasing left hilar lymphadenopathy. Differential would include disease progression, aggressive appearing postradiation change/necrosis, and infection. 2. Multifocal areas of mild bowel wall thickening and slight adjacent stranding greatest along the sigmoid colon suspicious for mild multifocal colitis. 3. Nonobstructing renal stones. 4. Cholelithiasis. Please note that all CT scans at this facility use dose modulation, iterative reconstruction, and/or weight-based dosing when appropriate to reduce radiation dose to as low as reasonably achievable. Dictated by Smith Ludwig MD @ 01/12/2025 10:21:48 PM (Electronically Signed) Ordering Physician: Debi RAMON Date of Service: 01/14/25 Procedure(s): CT angio chest PE protocol Accession Number(s): [id number] cc: Debi RAMON; Dorinda Washington D.O.~ For Patients: As a result of the Century Cures Act, medical imaging exams and procedure reports are released immediately into your electronic medical record. You may view this report before your referring provider. If you have questions, please contact your health care provider. INDICATION: Tachycardia, D-dimer, rule out PE, history of lung cancer. TECHNIQUE: CT chest angio was acquired with 95 cc Isovue 370 IV contrast. Images and 3D Angiographic MIP reconstructions are obtained COMPARISON: CT chest December 07, 2024 FINDINGS: Heart and vasculature: Contrast opacification of the pulmonary arterial tree is adequate. No sign of pulmonary embolism. Heart size is normal. Thoracic aorta and pulmonary artery are normal in caliber. Coronary artery calcification. Lungs and pleura: Known case of squamous cell carcinoma of left lower lobe, status post radiation. The mass measures about 5.4 x 4.9 cm on coronal plane. Encasement and mild narrowing of the left lower lobe segmental bronchi are similar to previous exam. There is new moderate partially loculated left pleural effusion. Loculated effusion is also present along oblique fissure. Patchy ground-glass opacities and interlobular septal thickening is identified, most pronounced in the lower lobe. Difficult assessment of the another solid nodule at the left lower lobe given the presence of pleural effusion. Mild right basilar atelectasis and dependent ground-glass opacities. No right effusion or pneumothorax. Lymph nodes/mediastinum: Few subcentimeter sized mediastinal lymph nodes. Prominent bilateral hilar lymph nodes are also identified, largest on the right side measures 18 x 15 mm, increased in size in comparison to previous CT from August 2024. On the left side it measures 17 x 17 mm. Mm, Chest wall: No masses. Upper abdomen: Cholelithiasis. Otherwise, no acute abnormality. Bones: Multilevel degenerative changes of the spine. No concerning bony lesion. IMPRESSION: 1. No pulmonary embolism. 2. Known case of Left lower lobe squamous cell carcinoma, status post radiation. 3. New moderate partially loculated left Pleural effusion, which obscures left lower lobe solid nodule. 4. Enlarged bilateral hilar lymph nodes, likely reactive. Although metastasis can not be excluded. Please note that all CT scans at this facility use dose modulation, iterative reconstruction, and/or weight-based dosing when appropriate to reduce radiation dose to as low as reasonably achievable. Dictated by Anika Kate MD @ 01/14/2025 11:48:03 AM (Electronically Signed) Pending studies at discharge: viral respiratory panel remains pending Labs on day of discharge: Labs from last 24 hours 01/15/25 05:35 WBC 16.90 H RBC 2.97 L Hgb 9.1 L Hct 27.9 L MCV 94 MCH 31 MCHC 33 Plt Count 360 VBG pH 7.389 VBG pCO2 33 L VBG pO2 42.2 VBG HCO3 20 L Sodium 134 L Potassium 3.8 Chloride 110 Carbon Dioxide 18 L Anion Gap 6 L BUN 25 Creatinine 1.3 Estimated Creat Clear 65.68 Estimated GFR 59 Glucose 219 H Calcium 7.9 L Total Bilirubin 0.7 AST 68 H ALT 84 H Alkaline Phosphatase 206 H C-Reactive Protein 7.7 H Total Protein 5.0 L Albumin 2.3 L Preliminary micro results at discharge 01/13/25 11:51 MRSA Screen - Preliminary Nasal - Nasal No MRSA (Methicillin resistant Staph aureus) isolated. 01/13/25 11:51 Viral Culture, Respiratory - Preliminary Sputum - Expectorated Sputum 01/12/25 15:25 Blood Culture - Preliminary Blood NO GROWTH AFTER 48 HOURS 01/12/25 15:25 Blood Culture - Preliminary Blood NO GROWTH AFTER 48 HOURS Discharge Plan Discharge Disposition: Home, Self-Care Date of Admission: 01/12/25 18:57 Attending Provider on Discharge: Renae Mendes Primary Care Provider: Dorinda Washington Condition: Improved Anticipated Discharge Date/Time: 01/15/25 12:45 Discharge Medications: New cefdinir 300 mg capsule 300 mg PO BID 7 Days Qty: 14 0RF azithromycin [Zithromax] 250 mg tablet 250 mg PO DAILY 2 Days Qty: 2 0RF Rx Instructions: If dose pack, start on day 4 of therapy. Continued atorvastatin 80 mg tablet 80 mg PO QPM allopurinol 100 mg tablet 100 mg PO DAILY amitriptyline 10 mg tablet 10 mg PO HS amlodipine 10 mg tablet 10 mg PO DAILY metformin 1,000 mg tablet 500 mg PO BID naloxone 4 mg/actuation spray,non-aerosol 1 spray INTRANASAL .PRN PRN Patient Comments: [NO ORIGINAL SIG] Ozempic 2 mg/dose (8 mg/3 mL) pen injector 2 mg subcut .WEEKLY glipizide 10 mg tablet extended release 24hr 20 mg PO DAILY hydrocodone-acetaminophen 5-325 mg tablet 1 tab PO BID PRN (Reason: pain) Eliquis 5 mg tablet 5 mg PO BID lisinopril 10 mg tablet 10 mg PO DAILY polyethylene glycol 3350 17 gram/dose powder 17 g PO DAILY Januvia 50 mg tablet 50 mg PO DAILY Discharge Orders: Discharge Order (Routine); Ordered 01/15/25 Ordered By: Renae Mendes Patient Education: Azithromycin (By mouth), Cefdinir (By mouth), Community Acquired Pneumonia (DC) Additional Instructions: RESUME HOME HEALTH CARES ON DISCHARGE (nursing, PT and OT) Avoid tobacco use Activity Level: No Restrictions Discharge Diet: Diabetic Follow Up Appointments: Dorinda Washington DO [Primary Care Provider, Family Practice] - 01/24/25 2:10 pm Referral Note: next week Forms: [employer] Info Instructions
[2025-01-15] MEDS: AZITHROMYCIN 250 MG TABLET 500 MG PO (13:42)
[2025-01-15] MEDS: CEFPODOXIME PROXETIL 200 MG TABLET PO (13:42)
--- NOTE | 2025-01-15 14:14 | PC.NURSE ---
Discharge: VSS on Ra tolerating a reg diet. Afebrile this shift. patient ambulating 1 assist walker/GB to BR and chair. Patient discharged to home today at 1400 accompanied by spouse. patients IV removed tip intact. Discharge paperwork signed and verbalized understanding of instructions. Belongings sheet signed.
== END 2025-01-15 14:00 | disposition home or self-care (01) | DRG 871 ==
LOC: ED 17:50 → MEDSURG 18:58
PROVIDERS: Physician Assistant; Admitting Provider Family Medicine; Emergency Provider Student in an Organized Health Care Education/Training Program; PCP Family Medicine; Visit Provider Family Medicine
DX: A41.9 Sepsis, unspecified organism (principal); J18.9 Pneumonia, unspecified organism; C34.32 Malignant neoplasm of lower lobe, left bronchus or lung; I69.351 Hemiplegia and hemiparesis following cerebral infarction affecting right dominant side; R65.20 Severe sepsis without septic shock; I12.9 Hypertensive chronic kidney disease with stage 1 through stage 4 chronic kidney disease, or unspecified chronic kidney disease; E11.22 Type 2 diabetes mellitus with diabetic chronic kidney disease; E11.65 Type 2 diabetes mellitus with hyperglycemia; N18.32 Chronic kidney disease, stage 3b; K52.9 Noninfective gastroenteritis and colitis, unspecified; R79.89 Other specified abnormal findings of blood chemistry; Z79.84 Long term (current) use of oral hypoglycemic drugs; Z79.85 Long-term (current) use of injectable non-insulin antidiabetic drugs; Z79.01 Long term (current) use of anticoagulants; F17.210 Nicotine dependence, cigarettes, uncomplicated; E78.5 Hyperlipidemia, unspecified
CPT/HCPCS: 36415; 70450; 71046; 71260; 71275; 74177; 80053; 81001; 81003; 82010; 82803; 82947; 82962; 83605; 83735; 84484; 85025; 85027; 85379; 85610; 86140; 87040; 87081; 87086; 87252; 87449; 87631; 87899; 93005; 97116; 97161; 97165; 97530; 97535; 99283; 99285; A9270; J0696; J1815; J2543; J3375; J7030; Q9967

== ENCOUNTER 2025-01-16 09:08 | Outpatient (CLI) | payer MEDICARE, BC, SELFPAY | END 2025-01-16 09:09 | disposition home or self-care (01) | LOC: AMB 01-24 13:44 | PROVIDERS: PCP Family Medicine; Visit Provider Family Medicine | DX: R53.1 Weakness (principal) | CPT/HCPCS: A0425; A0427 ==

== ENCOUNTER 2025-01-16 09:35 | Observation (INO) | payer MEDICARE, BC, SELFPAY ==
--- OUTSIDE RECORDS SUMMARY | 2024-09-28 05:30 | XMS_ITS | Continuity of Care Document ---
Author Organization [facility] Address [address] [place] [address] Phone Care Team Providers Care Specialized Developer Name Role Phone Dre Benson MD Unavailable Unavailable Allergies, Adverse Reactions, Alerts Substance Reaction Status Criticality No Known Allergies Active No Inform ation Medications Medication Instructions Dosage Effective Dates (start - stop) Status Comments Narcan 4 mg/actuation nasal spray spray 0.1 milliliter by intranasal route in 1 nostril may repeat dose every 2-3 minutes as needed alternating nostrils with each dose 4 MG - Active meclizine 25 mg tablet take 1 tablet by oral route 3 times every day as needed 25 MG - Active hydrocortisone 2.5 % topical cream apply by topical route 3 times every day a thin layer to the affected area(s) Not Available - Active glipizide 10 mg tablet take 1 tablet by oral route every day before a meal 10 MG - Active ketoconazole 2 % topical cream apply by topical route 2 times every day to the affected area(s) Not Available - Active Lipitor 80 mg tablet take 1 tablet by oral route every day 80 MG - Active hydrocodone 5 mg-acetaminophen 325 mg tablet take 1 tablet by oral route every 8 hours as needed for pain 1 tablet - Active amlodipine 10 mg tablet take 1 tablet by oral route every day 10 MG - Active allopurinol 300 mg tablet take 1 tablet by oral route every day 300 MG - Active Eliquis 5 mg tablet take 2 tablet by oral route 2 times every day 10 MG - Active hydrocodone [...] Amphetamine 13:44:00 0 ng/mL <100 Final Performed by:[facility] [place] ([facility]) Methamphetamine 13:44:00 0 ng/mL <300 Final Performed by:[facility] [place] ([facility]) 7-Aminoclonazepam 13:44:00 0 ng/mL <50 Final Performed by:[facility] [place] ([facility]) Alpha-Hydroxyalpraz olam 13:44:00 0 ng/mL <50 Final Performed by:[facility] [place] ([facility]) Lorazepam 13:44:00 0 ng/mL <50 Final Performed by:[facility] [place] ([facility]) Nordiazepam 13:44:00 0 ng/mL <50 Final Performed by:[facility] [place] ([facility]) Oxazepam 13:44:00 0 ng/mL <25 Final Performed by:[facility] [place] ([facility]) Temazepam 13:44:00 0 ng/mL <50 Final Performed by:[facility] [place] ([facility]) Buprenorphine 13:44:00 0 ng/mL <10 Final Performed by:[facility] [place] ([facility]) Norbuprenorphine 13:44:00 0 ng/mL <20 Final Performed by:[facility] [place] ([facility]) Benzoylecgonine (SEBASTIEN Metabolite) 13:44:00 0 ng/mL <50 Final Performed by:[facility] [place] [facility]) Fentanyl 13:44:00 0 ng/mL <1 Final Performed by:[facility] [place] ([facility]) Norfentanyl 13:44:00 0 ng/mL <4 Final Performed by:[facility] [place] ([facility]) Gabapentin 13:44:00 0 ng/mL <500 Final Performed by:[facility] [place] ([facility]) 6-acetylmorphine 13:44:00 0 ng/mL <10 Final Performed by:[facility] [place] ([facility]) Ketamine 13:44:00 0 ng/mL <50 Final Performed by:[facility] [place] [facility]) EDDP 13:44:00 0 ng/mL <50 Final Performed by:[facility] [place] [facility]) Methadone 13:44:00 0 ng/mL <100 Final Performed by:[facility] [place] [facility]) MDA 13:44:00 0 ng/mL <100 Final Performed by:[facility] [place] ([facility]) MDMA (Ecstacy) 13:44:00 0 ng/mL <100 Final Performed by:[facility] [place] ([facility]) Methylphenidate 13:44:00 0 ng/mL <50 Final Performed by:[facility] [place] ([facility]) Codeine 13:44:00 0 ng/mL <50 Final Performed by:[facility] [place] ([facility]) Hydrocodone 13:44:00 297 ng/mL <50 H Final Performed by:[facility] [place] ([facility]) Hydromorphone 13:44:00 84 ng/mL <50 H Final Performed by:[facility] [place] [facility]) Morphine 13:44:00 0 ng/mL <50 Final Performed by:[facility] [place] ([facility]) Norhydrocodone 13:44:00 307 ng/mL <50 H Final Performed by:[facility] [place] ([facility]) Naloxone 13:44:00 0 ng/mL <20 Final Performed by:[facility] [place] ([facility]) Oxycodone 13:44:00 0 ng/mL <50 Final Performed by:[facility] [place] ([facility]) Oxymorphone 13:44:00 0 ng/mL <50 Final Performed by:[facility] [place]) Noroxycodone 13:44:00 0 ng/mL <50 Final Performed by:[facility] [place] ([facility]) Phencyclidine 13:44:00 0 ng/mL <10 Final Performed by:[facility] [place]) Pregabalin 13:44:00 0 ng/mL <200 Final Performed by:[facility] [place] ([facility]) Carisoprodol 13:44:00 0 ng/mL <50 Final Performed by:[facility] [place] ([facility]) Meprobamate 13:44:00 0 ng/mL <100 Final Performed by:[facility] [place] ([facility]) THC-COOH (Marijuana) 13:44:00 0 ng/mL <50 Final Performed by:[facility] [place] ([facility]) Zolpidem 13:44:00 0 ng/mL <20 Final Performed by:[facility] [place] ([facility]) Tapentadol 13:44:00 0 ng/mL <25 Final Performed by:[facility] [place]) Tramadol 13:44:00 0 ng/mL <50 Final Performed by:[facility] [place] ([facility]) Panel Description: NORCO Final Image UDT Lab Result 1 Panel Description: Point Of Care Testing (with T HC) Final POCT-Opiates neg Final POCT Amphetamine neg ng/mL Final POCT-Methamphetamin e neg Final POCT-Cocaine neg Final POCT-Marijuana neg Final POCT-Creatinine wnl Final POCT-Specific [place] wnl Final Recollection? no Final POCT-Temperature 90 [...] on Encounter New Pt Eval Moderate Hema, [facility], [address], [place], [place], [id number], [place] tel:[phone] [facility] foot pain (chief complaint)s houlder pain (chief complaint) Type II DM w/ diabetic neuropathyBody mass index (BMI) 27.0-27.9, adult 5 Marcelino Erickson. [address], [facility] [place], [id number], [place]. tel:[phone] Referring Provider: Dre Benson, [address], [place], [address] . tel:[phone] [facility], [address], [place], [place], [id number], [place] tel:[phone] [facility] No Information 5 Marcelino Erickson. [address], [place], [place], [id number], [place]. tel:[phone] Referring Provider: Dre Benson, [address], [place], [address] . tel:[phone] Family History Family Member Type Diagnosis Age At Onset No Information Payers Payer name Insurance type Covered constitution party ID Authorgokula titerell(s) Medicare Part B MB [id number] Blue Cross Medicare 16 [id number] Social History Type Description Quantity Date Captured [...] Date Instruction Additional Infor mitch - Prescribed Canyon 5 -325mg 2x/day* Discuss this prescription with [...] medication refill as needed in November* Consider [facility] for continued medication only pain management.- [...] followed for care of this pain through [facility] who have provided Canyon 5-325mg BID with good relief as well as trialed gabapentin and pregabalin with poor tolerance and brain fog as well as amitriptyline with minimal relief. He also continues with outside PT with good relief through [facility].As [facility] is closing, he is looking for another clinic to take over his Rx medication management.We discussed a multidisciplinary approach to pain management, and we discussed the use of injections and SCS for continued pain management. I recommend trialling SCS, though he would like to hold on any interventions for pain management. I prescribed Canyon 5-325mg BID, and as his Rx is [...] Mental Status Date Cognitive Assessment Orientation - [place] ed to time, place, person, situation. Patient Care Teams Name Effective Dates (start - stop) Status Members No Information
--- OUTSIDE RECORDS SUMMARY | 2024-09-28 05:30 | XMS_ITS | Continuity of Care Document ---
Author Organization [facility] Address [address] [place] [address] Phone Care Team Providers Care Ripsaw Grader Name Role Phone Dre Benson MD Unavailable [...] Amphetamine 13:44:00 0 ng/mL <100 Final Performed by:[facility] [place] ([facility]) Methamphetamine 13:44:00 0 ng/mL <300 Final Performed by:[facility] [place] ([facility]) 7-Aminoclonazepam 13:44:00 0 ng/mL <50 Final Performed by:[facility] [place] ([facility]) Alpha-Hydroxyalpraz olam 13:44:00 0 ng/mL <50 Final Performed by:[facility] [place] ([facility]) Lorazepam 13:44:00 0 ng/mL <50 Final Performed by:[facility] [place] ([facility]) Nordiazepam 13:44:00 0 ng/mL <50 Final Performed by:[facility] [place] ([facility]) Oxazepam 13:44:00 0 ng/mL <25 Final Performed by:[facility] [place] ([facility]) Temazepam 13:44:00 0 ng/mL <50 Final Performed by:[facility] [place] ([facility]) Buprenorphine 13:44:00 0 ng/mL <10 Final Performed by:[facility] [place] ([facility]) Norbuprenorphine 13:44:00 0 ng/mL <20 Final Performed by:[facility] [place] ([facility]) Benzoylecgonine (SEBASTIEN Metabolite) 13:44:00 0 ng/mL <50 Final Performed by:[facility] [place] ([facility]) Fentanyl 13:44:00 0 ng/mL <1 Final Performed by:[facility] [place]) Norfentanyl 13:44:00 0 ng/mL <4 Final Performed by:[facility] [place]) Gabapentin 13:44:00 0 ng/mL <500 Final Performed by:[facility] [place] ([facility]) 6-acetylmorphine 13:44:00 0 ng/mL <10 Final Performed by:[facility] [place]) Ketamine 13:44:00 0 ng/mL <50 Final Performed by:[facility] [place] ([facility]) EDDP 13:44:00 0 ng/mL <50 Final Performed by:[facility] [place] Methadone 13:44:00 0 ng/mL <100 Final Performed by:[facility] [place] MDA 13:44:00 0 ng/mL <100 Final Performed by:[facility] [place]) MDMA (Ecstacy) 13:44:00 0 ng/mL <100 Final Performed by:[facility] [place]) Methylphenidate 13:44:00 0 ng/mL <50 Final Performed by:[facility] [place]) Codeine 13:44:00 0 ng/mL <50 Final Performed by:[facility] [place]) Hydrocodone 13:44:00 297 ng/mL <50 H Final Performed by:[facility] [place] ([facility]) Hydromorphone 13:44:00 84 ng/mL <50 H Final Performed by:[facility] [place]) Morphine 13:44:00 0 ng/mL <50 Final Performed by:[facility] [place] ([facility]) Norhydrocodone 13:44:00 307 ng/mL <50 H Final Performed by:[facility] [place]) Naloxone 13:44:00 0 ng/mL <20 Final Performed by:[facility] [place] ([facility]) Oxycodone 13:44:00 0 ng/mL <50 Final Performed by:[facility] [place]) Oxymorphone 13:44:00 0 ng/mL <50 Final Performed by:[facility] [place] ([facility]) Noroxycodone 13:44:00 0 ng/mL <50 Final Performed by:[facility] [place]) Phencyclidine 13:44:00 0 ng/mL <10 Final Performed by:[facility] [place] ([facility]) Pregabalin 13:44:00 0 ng/mL <200 Final Performed by:[facility] [place] ([facility]) Carisoprodol 13:44:00 0 ng/mL <50 Final Performed by:[facility] [place] ([facility]) Meprobamate 13:44:00 0 ng/mL <100 Final Performed by:[facility] [place] ([facility]) THC-COOH (Marijuana) 13:44:00 0 ng/mL <50 Final Performed by:[facility] [place] ([facility]) Zolpidem 13:44:00 0 ng/mL <20 Final Performed by:[facility] [place]) Tapentadol 13:44:00 0 ng/mL <25 Final Performed by:[facility] [place]) Tramadol 13:44:00 0 ng/mL <50 Final Performed by:[facility] [place] ([facility]) Panel Description: NORCO Final Image UDT Lab Result 1 Panel Description: Point Of Care Testing (with T HC) Final POCT-Opiates neg Final POCT Amphetamine neg ng/mL Final POCT-Methamphetamin e neg Final POCT-Cocaine neg Final POCT-Marijuana neg Final POCT-Creatinine wnl Final POCT-Specific [place] wnl Final Recollection? no Final POCT-Temperature 90 [...] on Encounter New Pt Eval Moderate Hema, [facility], [address], [place], [place], [id number], [place] tel:[phone] [facility] foot pain (chief complaint)s houlder pain (chief complaint) Type II DM w/ diabetic neuropathyBody mass index (BMI) 27.0-27.9, adult 5 Marcelino Erickson. [address], [facility] [place], [id number], [place]. tel:[phone] Referring Provider: Dre Benson, [address], [place], [address] . tel:[phone] [facility], [address], [place], [place], [id number], [place] tel:[phone] [facility] No Information 5 Marcelino Erickson. [address], [place], [place], [id number], [place]. tel:[phone] Referring Provider: Dre Benson, [address], [place], [address] . tel:[phone] Family History Family Member Type Diagnosis Age At Onset No Information Payers Payer name Insurance type Covered alliance party ID Authorgokula titerell(s) Medicare Part B MB [id number] Blue Cross Medicare 16 [id number] Social History Type Description Quantity Date Captured [...] Date Instruction Additional Infor mitch - Prescribed [place] 5 -325mg 2x/day* Discuss this prescription with [...] followed for care of this pain through [facility] who have provided [place] 5-325mg BID with good relief as well as trialed gabapentin and pregabalin with poor tolerance and brain fog as well as amitriptyline with minimal relief. He also continues with outside PT with good relief through [facility].As [facility] is closing, he is looking for another clinic to take over his Rx medication management.We discussed a multidisciplinary approach to pain management, and we discussed the use of injections and SCS for continued pain management. I recommend trialling SCS, though he would like to hold on any interventions for pain management. I prescribed [place] 5-325mg BID, and as his Rx is [...] Mental Status Date Cognitive Assessment Orientation - [place] ed to time, place, person, situation. Patient Care Teams Name Effective Dates (start - stop) Status Members No Information
--- OUTSIDE RECORDS SUMMARY | 2024-12-10 12:30 | XMS_ITS | Encounter Summary ---
Author Organization [facility] Address [address] [place] [id number] Care Team Providers Care Supervisor [employer] Name Role Phone Unavailable Primary Care Provider Unavailabl e Reason for Referral * Outpatient (Routine) - Authorized Specialty Diagnoses / Procedures Referred By Laila soto Referred To Contact Radiation Oncology Bonita Glover APRN, C.N.PKenyatta, D.N.P. [address] [place] [phone] Phone: tel: fax: Kev Hoffmann M.D. [address] [place] [phone] Phone: tel: fax: Referral ID Status Reason Start Date Expiration Date V isits Requested Visits Authorized [id number] Authorized 12/10/2024 06/11/2026 1 1 Scheduling Instructions After PET/CT at [facility] * MRI/CAT/PET Scan (Routine) - Authorized Specialty Diagnoses / Procedures Referred By Laila soto Referred To Contact Diagnoses Malignant Neoplasm Of Lung Lower Lobe Or Bronchus Left (HCC) Procedures PET CT Skull to Thigh FDG Bonita Glover APRN, C.N.P., D.N.P. [address] [place] [phone] Phone: tel: fax: [facility] Referral ID Status Reason Start Date Expiration Date V isits Requested Visits Authorized [id number] Authorized 12/10/2024 03/12/2026 1 1 * Outpatient (Routine) - Closed Specialty Diagnoses / Procedures Referred By Contac t Referred To Contact Radiation Oncology Bonita Glover APRN C.N.PKenyatta, D.N.P. [address] [place] [phone] Phone: tel: fax: Kev Hoffmann M.D. [address] [place] [phone] Phone: tel: fax: Referral ID Status Reason Start Date Expiration Date Visits Re quested Visits Authorized [id number] Closed 09/03/2024 03/05/2026 1 1 Reason for Visit * Outpatient (Routine) - Closed Specialty Diagnoses / Procedures Referred By Keenanac t Referred To Contact Radiation Oncology Bonita Glover APRN C.N.PKenyatta, D.N.P. [address] [place] [phone] Phone: tel: fax: Kev Hoffmann M.D. [address] [place] [phone] Phone: tel: fax: Referral ID Status Reason Start Date Expiration Date Visits Re quested Visits Authorized [id number] Closed 09/03/2024 03/05/2026 1 1 Encounter Details Date Type Department Care Team (Latest Contact Info) Description 12/10/2024 1:30 PM CDT - 12/11/2024 3:15 PM CDT Hospital Encounter Department of Radiation Oncology in [place], [place] [address] [place] [phone] Kev Hoffmann M.D. [address] [place] [phone] Malignant Neoplasm Of Lung Lower Lobe Or Bronchus Left (HCC) (Primary Dx) Social History Tobacco Use Types Packs/Day Years Used Date Smoking Tobacco: Every Day Cigarettes 0.8 51.9 Started: 1975 Smokeless Tobacco: Never Alcohol Use Standard Drinks/Week Comments Yes 0 (1 standard drink = 0.6 oz pur e alcohol) 2 drinks/month [facility] Utilities Answer Date Recorded In the past 12 months has e electric, gas, oil, or water company threatened to shut off services in your home? No 07/28/2023 Hunger Vital Sign Answer Date Recorded [...] things needed for daily living? No 07/28/2023 Housing Stability Answer Date Recorded What is your living situation today? I have a [facility] place to live 07/28/2023 Sex and Gender Information Value Date Recorded Sex Assigned at Male 07/28/2023 10:23 AM CDT Legal Sex Male 7:57 AM FANCY SEWER Gender Identity Male 07/28/2023 10:23 AM CDT Sexual Orientation Not on file documented as of this encounter Last Filed Vital Signs Vital Sign Reading Time Taken Comments Blood Pressure 148/90 12/10/2024 1:33 PM CDT Pulse 103 12/10/2024 1:33 PM CDT Temperature 36.4 C (97.6 F) 12/10/2024 1:33 PM CDT Respiratory Rate - - Oxygen Saturation - - Inhaled Oxygen Concentration - - Weight 98.6 kg (217 lb 6 oz) 12/10/2024 1:33 PM CDT Height - - Body Mass Index - - documented in this encounter Medications at Time of Discharge amitriptyline (ELAVIL) 10 mg tablet Take 10 mg by mouth. 06/03/2023 amLODIPine (NORVASC) 10 mg tablet Take 1 tablet by mouth daily. 06/19/2022 apixaban (Eliquis) 5 mg tablet Take 1 tablet by mouth 2 (two) times a day. 11/22/2023 aspirin 81 mg chewable tablet Chew 81 mg. 08/14/2022 atorvastatin (Lipitor) 80 mg tablet Take 80 mg by mouth. 08/14/2022 blood sugar diagnostic strips ([employer] Verio test strips) Dispense item covered by pt ins. E11.9 NIDDM type II - Test 3 times/day, Reason: High A1C 02/11/2023 diclofenac sodium (VOLTAREN) 1 % gel Apply 4 g topically. 06/03/2023 glipiZIDE (GLUCOTROL XL) 10 mg 24 hr tablet Take 20 mg by mouth. 06/26/2022 HYDROcodone-acet aminophen (NORCO) 5-325 mg per tablet Take one tablet by mouth two times a day as needed for pain. Max acetaminophen dose: 4000 mg in 24 hrs. Rx to last 30 days. use dates:07/15/23-07/15/2023 L.acidoph-Marjorie -BKenyattabif-SKenyattatherm (Bacid) 1 billion cell- 250 mg per tablet Take 1 tablet by mouth 2 (two) times a day with meals. lisinopriL (PRINIVIL,ZESTRI L) 40 mg tablet Take 1/2 tablet (20 mg) twice daily 07/20/2022 metFORMIN (GLUCOPHAGE) 1,000 mg tablet Take 1,000 mg by mouth. 08/14/2022 omega-3 fatty acids-fish oil 340-1,000 mg per capsule Take 1 g by mouth. Ozempic 1 mg/dose (4 mg/3 mL) injection Inject 1 mg under the skin over 168 hr. 06/02/2023 sennosides (SENOKOT) 8.6 mg tablet Take 1 tablet by mouth daily. SITagliptin phosphate (Januvia) 50 mg tablet Take 50 mg by mouth daily. 12/08/2024 documented as of this encounter Progress Notes * Bonita Glover APRN, C.N.P., D.N.P. - 12/10/2024 1:30 PM CDT SUBJECTIVE DIAGNOSIS 1. Malignant Neoplasm Of Lung Lower Lobe Or Bronchus Left (HCC) SUPERVISED BY: Kev Hoffmann M.D. ([id number]) HISTORY OF PRESENT ILLNESS Chato He is a 69 y.o. 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 He completed SBRT to the left lower lung on August 20, 2023. He returns for routine follow up. His oncologic history is as follows: Oncology History Malignant Neoplasm Of Lung Lower Lobe Or Bronchus Left (HCC) 02/11/[address] Chest Screening Low Dose Impression: 1.0 x 1.2 cm slightly irregular left infrahilar/left lower lobe pulmonary nodule. LUNG-RADS CATEGORY 4B: Suspicious. (<15% risk of malignancy) -Solid nodule(s): Greater than or equal to 15 mm; or new or growing, and greater than or equal to 8mm. -Sub solid nodule(s): Solid component greater than or equal to 8 mm; or new or growing greater thanor equal to 4 mm solid component. 02/18/2023 Other Pulmonary function testing demonstrated FVC 6.33 (110% reference), FEV1 4.58 (108% reference), and DLCO 26.6 (98% reference). 02/19/2023 Critical Imaging PET-CT IMPRESSION: Findings suspicious for a left lower lobe primary lung neoplasm without metastasis. 02/19/2023 Other Thoracic Oncology Outpatient Clinic consultation with Dr. Saul Dean. Recommended robotic navigation bronchoscopy and biopsy. Patient plans on going to [place] the following week and is not interested in changing his plans. Repeat CT scan in 3 months. 06/02/[address] Chest Impression: Increased size of suspicious spiculated nodule left lower lobe adjacent to the bronchovascular bundle measuring 14 millimeters. Bronchoscopic biopsy recommended. 07/04/2023 Surgery and Procedures PROCEDURE: Bronchoscopy with RAB/radial EBUS/floro for FNA/transbrochial biopsies from left lower lobe nodule and [...] is a good alternative. Patient decided on SBRT. 08/14/2023 - 08/20/2023 Radiation Therapy Total dose of 5000 cGy in 5 fractions. Radiation Therapy Treatment Details (08/14/2023 - 08/20/2023) Site: Left Lower lobe of lung Technique: SBRT Goal: Curative Planned Treatment Start Date: 08/14/2023 11/12/[address] Chest Impression: 1. Decreased conspicuity/size of the left lower lobe pulmonary nodule adjacent to the left lower lobe bronchovascular bundle, now measuring 7 millimeters compared to 14 millimeters. 2. Mild soft tissue fullness of the left lower lobe bronchovascular bundle, difficult to directly compare as the prior study does not have intravenous contrast present. 3. No enlarged thoracic lymph nodes. 4. Mild pulmonary fibrosis. 02/09/[address] Chest Impression: Stable small spiculated left lower lobe nodule. Adjacent ground- glass reticulation probably related to posttreatment changes. No new findings are seen. 08/31/[address] Chest Impression: Enlarging bandlike and consolidative opacity within the lower lobe of the left lung may represent infection, scarring, and/or atelectasis, though is indeterminate. Follow-up chest CT is recommended in 1-3 months for reassessment. 12/06/[address] chest Impression 1. Mild increased size of known case of malignant mass in the left lower lobe, encasing the segmental bronchi. 2. Mild thickening of the posterior most left oblique fissure and solid nodule in the left lower lobe, unchanged. 3. No new or concerning nodule. 4. Paraseptal emphysema. INTERVAL HISTORY The patient was seen and examined today with Dr. Hoffmann. The patient reports doing okay overall. He reports stable breathing overall without shortness of breath or difficulty breathing on exertion. He denies any chest pain, pressure, or tightness. He denies any hemoptysis. He is quite limited in his mobility secondary to neuropathy. He is never very active to experience any changes to his breathing. His ECOG performance status is 2. REVIEW OF SYSTEMS Review of systems was negative except as documented above. PATIENT REPORTED SYMPTOM SCREEN FATIGUE (Scale: 0 = no fatigue; 10 = worst fatigue you can imagine): 4 PAIN (Scale: 0 = no pain; 10 = worst pain you can imagine): 2 OVERALL QUALITY OF LIFE (Scale: 0 = as bad as can be; 10 = as good as can be): 3 OBJECTIVE BP 148/90 (BP Location: Right arm, Patient Position: Sitting, Cuff Size: Regular) Pulse 103 Temp 36.4 ??C (Temporal) Wt 98.6 kg PHYSICAL EXAM General: Patient is alert and oriented in no apparent distress. Lymph: No palpable cervical, supraclavicular, infraclavicular, or axillary adenopathy. Lungs: Expiratory wheeze in the left lobe. Clear to auscultation in right lobe. Heart: Regular rate and rhythm. Normal S1 and S2. 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 It was a pleasure to meet with Chato today. He is doing well from his lung cancer standpoint without any long-term breathing symptom. He is quite limited in his mobility secondary to neuropathy. Reviewed his recent CT chest imaging today with him. This demonstrated an increase in the solid appearing mass in the left lower lobe. This is possibly scarring secondary to his SBRT treatment in July 2023, but we can not definitively rule out any concerns for malignancy. We recommended obtaining a PET-CT scan for complete evaluation. He was agreeable to this and will complete it at [facility] as earliest convenience. We will contact him with those results. Patient seen in collaboration with Dr. Hoffmann, please review his attestation for additional information. The patient was asked to contact us with questions or concerns. He verbally expressed his understanding of the plan. EDUCATION Ready to learn, no apparent learning barriers were identified; learning preferences include listening. Explained diagnosis and treatment plan; patient expressed understanding of the content. I personally spent 25 minutes in care of the patient today. Time includes both non face to face andface to face patient care. Signed by: Bonita Glover APRN, C.N.P., D.N.P. 12/10/2024 1:47 PM CDT [facility] [address] [place] [address] Cosigned by Kev Hoffmann M.D. at 12/11/2024 3:12 PM CDT Associated attestation - Kev Hoffmann M.D. - 12/11/2024 3:12 PM CDT I saw and evaluated the patient and participated in the rosenberg portions of the service. I reviewed thedocumentation of Bonita Glover C.N.P. and agree with the findings and plan. Chato He is a 69 y.o. male with stage IA2 (cT1b, cN0, cM0) squamous cell carcinoma ofthe left lower lung. He completed SBRT to the left lower lung on August 20, 2023. He returns in 16 month follow-up. The patient is feeling well. His breathing is good without any dyspnea at rest or with exertion. Denies any chest pain or hemoptysis. ECOG performance status is 1. The patient appears well on exam. He is here with his Gracia. I independently reviewed his chest CT scan from December 06, 2024. This again shows increased scarring in the area of treatment. The patient is doing well now 16 months out from treatment completion. Because the scar continues to evolve and get larger, we will obtain a PET/CT scan to rule out possible progression and see the patient back to go over the results. The patient and his verbalized satisfaction with this plan. I have spent 8 minutes caring for this patient including [id number] and [id number] time. Signed by: Kev Hoffmann M.D. 12/11/24 3:12 PM CDT [facility] Radiation Therapy [facility] documented in this encounter Miscellaneous Notes * Addendum Note - Raisa Sterling - 12/10/2024 1:30 PM CDTEncounter addended by: Raisa Sterling on: 12/13/2024 9:43 AM Actions taken: Letter saved * Addendum Note - Thomas Portillo - 12/10/2024 1:30 PM CDTEncounter addended by: Thomas Portillo on: 12/13/2024 9:43 AM Actions taken: Letter saved * Addendum Note - Raisa Sterling - 12/10/2024 1:30 PM CDTEncounter addended by: Raisa Sterling on: 12/13/2024 9:44 AM Actions taken: Letter saved * Addendum Note - Thomas Portillo - 12/10/2024 1:30 PM CDTEncounter addended by: Thomas Portillo on: 12/13/2024 9:50 AM Actions taken: Letter saved documented in this encounter Plan of Treatment Upcoming Encounters Date Type Department Care Team (Late st Contact Info) Description 02/02/2025 1:30 PM FANCY SEWER Appointment Department of Radiation Oncology in [place], [place] [address] [place] [phone] Kev Hoffmann M.D. [address] [place] [address] Scheduled Orders Name Type Priority Associated Diagnoses Orde r Schedule PET CT Skull to Thigh FDG Imaging RAD - Routine (most inpatients and all outpatients) Malignant Neoplasm Of Lung Lower Lobe Or Bronchus Left (HCC) Expected: 12/10/2024, Expires: 03/12/2026 Scheduled Referrals Name Type Priority Associated Diagnoses Order Schedule Radiation Oncology office visit (clinic) Outpatient Referral Routine Once for 1 Occurrences starting 12/10/2024 until 12/10/2024 Radiation Oncology office visit (clinic) Outpatient Referral Routine 1 Occurrence s starting 12/10/2024 until 03/12/2026 documented as of this encounter Visit Diagnoses Diagnosis Malignant Neoplasm Of Lung Lower Lobe Or Bronchus Left (HCC)- Primary documented in this encounter
[2025-01-16] VITALS (13 sets, daily range): BP systolic 106–151; BP diastolic 71–103; PULSE 78–114; RESP 18; TEMP 36.4–36.7; O2SAT 93–98; BMI 24.2
--- OUTSIDE RECORDS SUMMARY | 2025-01-16 09:37 | XMS_ITS ---
Author Name Interface, [id number] Address [address] [place] [address] [address] [place] [address] [facility] Address [address] [facility] [address] [place] [address] Allergies and Adverse Reactions Medication/Group Name Reaction Severity Date No known allergies Plan Date Type Value 07/14/2023 APPOINTMENT NEW PT CONSULT 3 0 MIN Reason for Visit NEW PT CONSULT 30 MIN Encounters Date Name 07/14/2023 Non-small cell lung cancer (disorder) Immunizations Date Name Route Dose Instructions Refusal Reason Stat us Other Completed Flu vaccine - Adult Comp leted Medications Date Name Route Dose Frequency Instructions Start Date End Date Status Fill Status Indication 07/13 Amitripty line Oral orally 10.0 mg daily active 07/13 Glipizide Oral ER Tab 20 mg daily active 07/13 Atorvasta tin Oral orally 80.0 mg daily active 07/13 Aspirin Oral orally 81.0 mg daily active 07/13 Hydrocodo ne-Acetam inophen Oral 5 mg-325 mg prn active 07/13 Diclofena c Topical Gel 1 % active 07/13 Amlodipin e Oral orally 10.0 mg daily active 07/13 Allopurin ol Oral 50 mg daily active 07/13 [place]-3 Fatty Acids Oral daily active Problems Diagnosis Status Date of Diagnosis Resolution Date Non-small cell lung cancer (disorder) Active Vital Signs Date Type Value 07/14/2023 Height 77.00 07/14/2023 BMI 27.70 07/14/2023 BSA 2.39 07/14/2023 Body Temperature 97.20 07/14/2023 Weight 233.60 07/14/2023 Respiratory Rate 14.00 07/14/2023 Oxygen Saturation 97.00 07/14/2023 Intravascular Systolic 130 07/14/2023 Intravascular Diastolic 85 07/14/2023 Pain Scale 4.00 07/14/2023 Heart Beat 89.00 Notes Section * Thoracic Visit Note Patient Name: KIM REYES Date of :??1955 Date:??07/14/2023 THORACIC VISIT NOTE ??Mr. Reis??Ying??is seen as a new patient on 07/14/2023 regarding a new diagnosis of??squamous cell carcinoma of the left lower lobe lung.?? He is a 67-year-old gentleman current smoker.?? The importance of smoking cessation was discussed.?? I reviewed all his imaging studies.?? The most recent CT scan of the chest dated 06/02/2023??showed a??1.4 x 1.4 cm??spiculated lesion in the left lower lobe lung.?? This measured??1.0 x 1.[address] scan from January??2022.?? PET CT scan from January 2023 showed that??the left lower lobe lung lesion was??FDG avid??and suspicious for malignancy. He underwent Ion robotic bronchoscopy with endobronchial ultrasound??on??07/04/2023.?? Biopsy of thenodule is positive for squamous cell carcinoma.?? The lymph nodes were negative for malignancy.?A follow-up PET CT scan was done today.?? There is no evidence of james or distant disease. Pulmonary function tests from January 2023 are normal. The findings reviewed in details. ??Clinically is a stage I.?? Options of treatment were discussed.?? My recommendation is to proceed with a left thoracotomy with left lower lobectomy and mediastinallymph node dissection.?? The operation, goals and risks??as well as expected recovery were discussed in great details??and he will schedule at his convenience. Ian Juárez MD [facility] Ian Juárez MD Copy to: Electronically signed by Ian Juárez MD 07/16/2023 09:46 CDT
--- OUTSIDE RECORDS SUMMARY | 2025-01-16 09:37 | XMS_ITS | Clinical Summary ---
Author Organization [facility] Address [address], [place] [address] Phone Care Team Providers Care Program Manufacturing Leader Name Role Phone Yousuf Bernard MD Primary Care Provider [phone] Allergies No known active allergies Medications amLODIPine [...] Comments Blood Pressure 113/74 01/07/2023 3:22 PM CELLULAR PHONE REPAIRER Pulse 80 01/07/2023 3:22 PM CELLULAR PHONE REPAIRER Temperature 36.3 C (97.4 F) 01/07/2023 3:22 PM CELLULAR PHONE REPAIRER Respiratory Rate 20 09/23/2022 2:15 PM CDT Oxygen Saturation 97% 01/07/2023 3:22 PM CELLULAR PHONE REPAIRER Inhaled Oxygen Concentration - - Weight 111 kg (244 lb 3.2 oz) 01/07/2023 3:22 PM CELLULAR PHONE REPAIRER Height 195.6 cm (6' 5) 01/07/2023 3:22 PM CELLULAR PHONE REPAIRER Body Mass Index 28.96 01/07/2023 3:22 PM CELLULAR PHONE REPAIRER Plan of Treatment Health Maintenance Due Date [...] INTERFACED INSURANCE PM INTERFACED INSURANCE Care Teams Program Manufacturing Leader Relationship Specialty Start Date End Date Yousuf Bernard MD [address] [place] [address] PCP - General 02/14/23
--- OUTSIDE RECORDS SUMMARY | 2025-01-16 09:37 | XMS_ITS | Encounter Summary ---
Author Organization [facility] Address [address] [place] [address]. [place] [address] Care Team Providers Care Health Care Manager Name Role Phone Yousuf Bernard MD Primary Care Provider [phone] Abrahan Bower MD Unavailable [phone] Encounter Details Date Type Department Care Team (Late st Contact Info) Description 09/25/2022 [facility] Medical Advice [facility] [address] [place] [address] Hina Lujan Social History Tobacco Use Types Packs/Day Years Used Date Smoking Tobacco: Every Day Cigarettes 0.5 50 Smokeless Tobacco: Never Alcohol Use Standard Drinks/Week Comments Yes 0 (1 standard drink = 0.6 oz pur e alcohol) 4 drinks per month Sex and Gender Information Value Date Recorded Sex Assigned at Not on file Legal Sex Male 9:34 AM CDT Gender Identity Not on file Sexual Orientation [...] filedocumented in this encounter Care Teams Health Care Manager Relationship Specialty Start Date End Date Yousuf Bernard MD [facility] [address] [id number] PCP - General Family Medicine 06/16/22 Abrahan Bower MD [address] [place] [address] [place] [address] Assigned Surgical Provider 10/12/22 documented as of this encounter
--- OUTSIDE RECORDS SUMMARY | 2025-01-16 09:37 | XMS_ITS ---
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 Past Treatment and Therapy Plans No past plan information found. Past Radiation Episodes * SBRT: Left Lower lobe of lungOverview* First Treatment Date Last Treatment Date Treatment Site Technique Goal Episode Provider 08/14/2023 08/20/2023 Left Lower lobe of lung SBRT Curative * Linked Problems Malignant Neoplasm Of Lung L ower Lobe Or Bronchus Left Treatment Courses* Course [id number] 08/14/2023 - 08/20/2023 Treatment Period Fraction Dose Fractions Total Dose Plans Planned [id number] 08/14/2023 - 08/20/2023 1,000 cGy 5,000 cGy Reference Points Delivered [id number] 08/14/2023 - 08/20/2023 5,000 cGy
--- OUTSIDE RECORDS SUMMARY | 2025-01-16 09:37 | XMS_ITS | Encounter Summary ---
Author Organization [facility] Address [address] [place] [address] Phone Care Team Providers Care Strategies Analyst Name Role Phone Dorinda Washington DO Primary Care Provider [phone] Encounter Details Date Type Department Care Team (Late st Contact Info) Description 12/27/2024 Orders Only [facility] [address] [address] [employer] [address] [facility] [address] [place] [address] Social History Tobacco Use Types Packs/Day Years Used Date Smoking Tobacco: Every Day Cigarettes 1 51.9 Started: 02/24/1973 Passive Smoke Exposure: Past Smokeless Tobacco: Never Alcohol Use Standard Drinks/Week Comments Yes 0 (1 standard drink = 0.6 oz pure alcohol) Alcoholic Drinks/day: Occasional social drink Sex and Gender Information Value Date Recorded Sex Assigned at Not on file Legal Sex Male 7:09 PM EDT Gender Identity Not on file Sexual Orientation Not on file documented as of this encounter Plan of Treatment Upcoming Encounters Date Type Department Care Team (Late st Contact Info) Description 02/01/2025 3:00 PM HEALTHCARE OR MEDICAL Office Visit [facility] [address] [place] [address] [address] Feliciano Soria MD [address] [place] [address] documented as of this encounter Visit Diagnoses Not on filedocumented in this encounter Administered Medications Administered Medications Medication Order MAR Action Action Date Dose Rate Site RSV IGIV Given 12/12/2023 documented in this encounter Care Teams Strategies Analyst Relationship Specialty Start Date End Date Dorinda Washington DO [address] [place] [address] PCP - General Family Medicine 09/22/23 documented as of this encounter
--- OUTSIDE RECORDS SUMMARY | 2025-01-16 09:37 | XMS_ITS | Encounter Summary ---
Author Organization [facility] Address [address] [place] [address] Care Team Providers Care Carriage Operator Name Role Phone Unavailable Primary Care Provider Unavailabl e Encounter Details Date Type Department Care Team (Late st Contact Info) Description 12/28/2024 Clinical Communication Department of Radiation Oncology in [place], [place] [address] [place] [address] Kev Hoffmann M.D. [address] [place] [address] Social History Tobacco Use Types Packs/Day Years Used Date Smoking Tobacco: Every Day Cigarettes 0.8 51.9 Started: 1975 Smokeless Tobacco: Never Alcohol Use Standard Drinks/Week Comments Yes 0 (1 standard drink = 0.6 oz pur e alcohol) 2 drinks/month [facility] Utilities Answer Date Recorded In the past 12 months has e Credible, gas, oil, or water [email or web address] threatened to shut off services in your [...] your living situation today? [facility] 07/28/2023 Sex and Gender Information Value Date Recorded Sex Assigned at Male 07/28/2023 10:23 AM CDT Legal Sex Male 7:57 AM SYSTEMS CHECKOUT MECHANIC Gender Identity Male 07/28/2023 10:23 AM CDT Sexual Orientation Not on file documented as of this encounter Miscellaneous Notes * Telephone Encounter - QuanMikycasandra Shoemaker - 12/28/2024 3:35 PM CST Other Reason for Call Caller: Gracia (auth on file) Relationships to patient: Spouse Reason for call: Gracia called to share that Chato was not feeling well and they cancelled his PET scan that is currently scheduled at [facility] for 12/30. She has rescheduled the scan to 01/13 and requested to adjust his follow-up visit with ANUM accordingly. I let her know that ANUM would be away from the clinic the week of and that the soonest appointment time would be the first week of January when he returns. Gracia expressed frustration with this and asked if another provider could review and communicate the results sooner. Please advise. EMS CHECKOUT MECHANIC documented in this encounter Plan of Treatment Upcoming Encounters Date Type Department Care Team (Late st Contact Info) Description 02/02/2025 1:30 PM SYSTEMS CHECKOUT MECHANIC Appointment Department of Radiation Oncology in [place], [place] [address] [place] [address] Kev Hoffmann M.D. [address] [place] [address] documented as of this encounter Visit Diagnoses Not on filedocumented in this encounter
--- OUTSIDE RECORDS SUMMARY | 2025-01-16 09:37 | XMS_ITS | Clinical Summary ---
Author Organization [facility] Address [address] [place] [address] Care Team Providers Care It Systems Administrator Name Role Phone Yousuf Bernard MD Primary Care Provider [phone] Allergies No known active allergies Medications meclizine (ANTIVERT) 25 MG tablet Take 1 tablet (25 mg) by mouth 3 times daily as needed for dizziness 15 tablet 3 Active amLODIPine (NORVASC) 10 MG tablet Take 10 mg by mouth daily for blood pressure 3 Active aspirin (ASA) 81 MG chewable tablet Take 81 mg by mouth daily 3 Active atorvastatin (LIPITOR) 80 MG tablet Take 80 mg by mouth daily 3 Active glipiZIDE (GLUCOTROL XL) 10 MG 24 hr tablet Take 20 mg by mouth every morning 3 Active lisinopril (ZESTRIL) 40 MG tablet Take 40 mg by mouth daily 3 Active sitagliptin (JANUVIA) 25 MG tablet Take 1 tablet by mouth daily 3 Active ticagrelor (BRILINTA) 90 MG tablet Take 90 mg by mouth 2 times daily 3 Active sennosides (SENOKOT) 8.6 MG tablet Take 1 tablet by mouth daily Active HYDROcodone-sarbjit taminophen (NORCO) 5-325 MG tablet Take 0.5-1 tablets by mouth daily as needed for pain Active metFORMIN (GLUCOPHAGE) 1000 MG tablet Take 1,000 mg by mouth 2 times daily (with meals) 3 Active oxyCODONE (ROXICODONE) 5 MG tablet Take 1 tablet by mouth 3 Active fish oil-omega-3 fatty acids 1000 MG capsule Take 1 g by mouth Active lidocaine (XYLOCAINE) 5 % external ointment Apply topically three times a day. 3 Active ONETOUCH ULTRA test strip TEST UP TO THREE TIMES DAILY Active blood glucose ([employer] BLOOD GLUCOSE TEST) test strip Dispense test strips covered by the patient insurance. Test up to 3 times per day. One Touch Ultra 3 Active blood glucose (ACCU-CHEK SMARTVIEW) test strip TEST TWICE A DAY for 50 Active acetaminophen (TYLENOL) 325 MG tablet Take 650 mg by mouth 3 Active Active Problems Problem Noted Date Diagnosed [...] 87 10/04/2022 5:04 PM CDT Temperature 36.7 C (98 F) 10/04/2022 5:04 PM CDT Respiratory Rate 14 [...] 1955 COLONOSCOPY 08/05/1963 COLORECTAL CANCER SCREENING 08/05/1963 RSV VACCINE (1 - Risk 50-74 years 1-dose series) 08/05/2003 FALL RISK ASSESSMENT 2018 MEDICARE ANNUAL WELLNESS VISIT 2018 BMP 09/19/2023 09/18/2022, 08/25, 09/16/2022, Additional history exists LUNG CANCER SCREENING 02/12/2024 02/11/2023, 023 PHQ-2 (once per calendar year) 2024 COVID-19 VACCINE ( season) 2024 09/04/2022, 09/04/2022, 11/21/2021, Additional history exists INFLUENZA VACCINE (#1) 2024 01/15/2023 LIPID 07/12/2025 07/12/2020 DIABETES SCREENING 10/04/2025 10/04/2022, 0 10/04/2022, 09/18/2022, Additional history exists DTAP/TDAP/TD VACCINE (3 - Td or Tdap) 02/04/2033 02/04/2023, 01/10/1971 PNEUMOCOCCAL VACCINE 50+ YEARS Completed 11/08/2022, 03/07/2021 ZOSTER VACCINE Completed 01/17/2023, 11/08/2022 HEPATITIS C SCREENING Completed 02/04/2023 HPV VACCINE (No Doses Required) Completed MENINGITIS VACCINE Aged Out No longer eligible based on patient's age to complete this topic Medical Devices Implanted Type Area Training Systems Officer Device Identifier Shelf Expiration Date Model / Serial / Lot Polaris Ultra [id number] Implanted:Qty : 1 on 10/04/2022 by Abrahan Bower MD at [facility] Right: Ureter [facility] [id number] 08/01/2025 [id number] / / [id number] Polaris Ultra 5f X 28cm Implanted:Qty : 1 on 10/04/2022 by Abrahan Bower MD at [facility] Left: Ureter [employer] [id number] 08/01/2025 [id number] 40 / / [id number] Explanted Type Area Training Systems Officer Device Identifier Shelf Expiration Date Model / Serial / Lot Polaris Ultra, 5f X28cm Implanted:Qty: 1 on 09/16/2022 by Abrahan Bower MD at [facility] Explanted:Qty: 1 on 10/04/2022 by Abrahan Bower MD at [facility] Left: Ureter [employer] 05/22/2025 [id number] / / [id number] Polaris Ultra, 5f X28cm Implanted:Qty: 1 on 09/16/2022 by Abrahan Bower MD at [facility] Explanted:Qty: 1 on 10/04/2022 by Abrahan Bower MD at [facility] Right: Ureter [employer] 05/22/2025 [id number] / / [id number] Procedures Procedure Name Priority Date/Time Associated Diagnosis Comments GLUCOSE BY METER Routine 10/04/2022 10:2 3 AM CDT BASIC METABOLIC PANEL Routine 09/18/2022 12:33 PM CDT Acute kidney failure, unspecified Chronic kidney disease, stage III (moderate) (H) LIPID PROFILE Routine 07/12/2020 9:47 AM CDT Abnormal blood chemistry Diabetes mellitus (H) Protein in urine Screening for prostate cancer Benign hypertension from Last 3 Months or Most Recently Relevant to Health Maintenance Results * (ABNORMAL) Glucose by meter (10/04/2022 10:23 AM CDT) [facility] Signature GLUCOSE BY METER POCT 174(H) 70 - 99 mg/dL 10/04/2022 10:29 AM CDT LABORATORY POC Blood, Capillary BLOOD SPECIMEN / Unknown 10/04/2022 10:23 AM CDT 10/04/2022 10:29 AM CDT us Abrahan Bower MD LAB - BEAKER POCT Final Result [facility] LABORATORY [facility] Acute Care Lab [address] Lab (1st floor, no room number) [place] [address], [facility] [phone] * (ABNORMAL) Basic metabolic panel (09/18/2022 12:33 PM CDT) [facility] Sodium 139 136 - 145 mmol/L 09/18/2022 [...] CDT Jin Shipley MD LAB - BLOOD ORDERABLES Fin al Result [facility] LABORATORY [facility] Acute Care Lab [address] Lab (1st floor, no room number) [place] [address], [facility] [phone] * Lipid panel (07/12/2020 9:47 AM CDT) Cholesterol 163 <200 mg/dL 07/12/2020 11:10 AM CDT [facility] Triglycerides 126 <150 mg/dL 07/12/2020 11:05 AM CDT [facility] HDL Cholesterol 42 >39 mg/dL 11:05 AM CDT [facility] LDL Cholesterol Calculated 96 <100 mg/dL 07/12/2020 11:10 AM CDT [facility] Comment:Desirable: <100 mg/d l Non HDL Cholesterol 121 <130 mg/dL 07/12/2020 11:10 AM CDT [facility] Blood 07/12/2020 9:47 AM CDT 07/12/2020 10:33 AM CDT us Yousuf Bernard MD LAB - BLOOD ORDERABLES Final Re sult [facility] [address] [place] [place] [address], [facility] [phone] from Last 3 Months or Most Recently Relevant to Health Maintenance Insurance [facility] Advance Directives For more information, please contact: [phone] * Full Code (Latest Code Status on File) Date Activated Date Inactivated Comments 09/16/2022 2:18 AM 09/17/2022 2:28 PM All basic an d advanced life-sustaining interventions are performed as appropriate Question Answer Comments Code status determined by: Discussion with rebeka nt/ legal decision maker Care Teams It Systems Administrator Relationship Specialty Start Date End Date Yousuf Bernard MD [facility] [address] [address] PCP - General Family Medicine 06/16/22
--- OUTSIDE RECORDS SUMMARY | 2025-01-16 09:37 | XMS_ITS | Encounter Summary ---
Author Organization [facility] Address [address] [place] [address] Phone Care Team Providers Care Dip Unit Operator Name Role Phone Dorinda Washington DO Primary Care Provider [phone] Reason for Visit * Reason Comments Med Refill Encounter Details Date Type Department Care Team (Late st Contact Info) Description 12/05/2024 Refill [facility] [address] [place] [address] Feliciano Soria MD [address] [place] [address] Nephrolithiasis Social History Tobacco Use Types Packs/Day Years [...] st Contact Info) Description 02/01/2025 3:00 PM TEST EXAMINER Office Visit [facility] [address] [place] [address] [address] Feliciano Soria MD [address] [place] [address] documented as of this encounter Visit Diagnoses Diagnosis Nephrolithiasis documented in this encounter Care Teams Dip Unit Operator Relationship Specialty Start Date End Date Dorinda Washington DO [address] [facility] [place] [address] PCP - General Family Medicine 09/22/23 documented as of this encounter
--- OUTSIDE RECORDS SUMMARY | 2025-01-16 09:37 | XMS_ITS | Clinical Summary ---
Author [facility] Address [address] [address] Care Team Providers Care Photonic Laboratory Technician Name Role Phone Clinician, Not Found MD Primary Care Provider Un available Source Comments You are receiving this document as you are listed as the primary care provider,follow-up provider, or the patient has been referred to you for consultation.This is in compliance with the Medicare andMedicaid EHR Incentive Program,which states Providers who transition their patient to another setting of careor provider of care or refers their patient to another provider of care shouldprovide summary care record for each transition of care or referral. [employer] Allergies No known active allergies Medications ONETOUCH ULTRA test strip two times a day. 1 Active amLODIPine (NORVASC) 10 MG tablet Take 1 Tablet (10 mg) by mouth daily. Active atorvastatin (LIPITOR) 80 MG tabletIndicati ons:Hyperlipid emia Take 1 Tablet (80 mg) by mouth every evening. Indications: High Amount of Fats in the Blood 30 Tablet 1 08/21/2022 8:43 AM CDT 3 Active acetaminophen (TYLENOL) 325 MG tabletIndicati ons:Pain Take 2 Tablets (650 mg) by mouth every 4 hours as needed. Indications: Pain. Do not take more than 4,000 mg acetaminophen from all sources in 24 hours. 100 Tablet 1 08/21/2022 8:43 AM CDT 3 Active lidocaine (XYLOCAINE) 5 % ointment Apply topically three times a day. 35.44 g 1 08/21/2022 8:43 AM CDT 3 Active meclizine (BONINE) 25 MG chewable tabletIndicati ons:Dizziness, Vertigo Chew and swallow 1 Tablet (25 mg) by mouth three times a day. Indications: Dizzy, Sensation of Spinning or Whirling 90 Tablet 1 08/21/2022 8:43 AM CDT 3 Active glipiZIDE XL (GLUCOTROL XL) 10 MG 24 hour release tablet Take 1 Tablet (10 mg) by mouth daily. 90 Tablet 3 3 Active Plover-3 Fatty Acids (FISH OIL) 1000 MG capsule Take 1 Capsule (1,000 mg) by mouth. Active allopurinol (ZYLOPRIM) 100 MG tablet Take 0.5 Tablets (50 mg) by mouth. 3 Active amitriptyline (ELAVIL) 10 MG tablet Take 1 Tablet (10 mg) by mouth. 4 Active HYDROcodone-ac etaminophen (NORCO) 5-325 MG tablet Take one tablet by mouth two times a day as needed for pain. Max acetaminophen dose: 4000 mg in 24 hrs. Rx to last 30 days. use dates: 10/13/2023 - 11/11/2023 4 Active OZEMPIC, 2 MG/DOSE, 8 MG/3ML SOPN injection Inject 2 mg subcutaneously once every week. 4 Active lisinopril (ZESTRIL) 20 MG tablet Take 1 Tablet (20 mg) by mouth two times a day. 4 Active metFORMIN (GLUCOPHAGE) 500 MG tablet Take 1 Tablet (500 mg) by mouth two times a day with meals. 4 Active ELIQUIS 5 MG tablet Take 1 Tablet (5 mg) by mouth two times a day. 5 Active Active Problems Problem Noted Date Diagnosed [...] Encounters Date Type Department Care Team Description 12/23/2024 Telephone Physiatry/Physical Medicine at [facility] [address] [facility] [place] [address] Han Bradley MD Progress Report (PT Progress 12/22/24) from Last 3 Months Immunizations Immunization Administration Dates Next Due HepB, Unspecified Formulation [...] at Not on file Legal Sex Male 8:28 AM CDT Gender Identity Not on file Sexual Orientation Not on file Last Filed Vital Signs Vital Sign Reading Time Taken Comments Blood Pressure 152/89 12/23/2022 10:57 AM CDT Pulse 72 12/23/2022 10:57 AM CDT Temperature 36.6 C (97.8 F) 08/21/2022 6:35 AM CDT Respiratory Rate 16 08/21/2022 6:35 AM CDT [...] Colon Cancer Screening Plan Due 1955 Diabetes: Albumin/Creatinine Ratio, Urine 1955 Diabetes: Foot Exam 1955 Diabetes: Lipid Panel 1955 Hep B Immunization Discussion 1955 Hep C Screening (Preventive Services) 1955 Medicare Annual Wellness Visit 1955 HepB Vaccine (2) 09/06/1991 08/09/1991 Diabetes: Creatinine 08/22/2023 08/21/2022, 08/19/2022, 08/15/2022, Additional history exists Diabetes: Eye Exam 12/21/2023 12/20/2022 Lung Cancer Screening 02/12/2024 02/11/2023 COVID-19 Vaccine (2024- season) 2024 07/14/2024, 12/05/2023, 2023, Additional history exists Influenza Vaccine (#1) 2024 12/10/2023, 2022 Diabetes: HGBA1C 12/09/2024 06/09/2024, , 02/24/2024, Additional history exists RSV Vaccine (1 - 1-dose 75+ series) 2028 DTaP/Tdap/Td Vaccine (3 - Tdap) 02/04/2033 02/04/2023, 01/10/1971 Pneumococcal Vaccine 50+ Yrs Completed 11/08/2022, 03/07/2021 Zoster/Shingles Vaccine Completed 01/17/2023, 11/08 Abdominal Aortic Aneurysm (AAA) Screening Discontinued 02/21/2023 HepA Vaccine Aged Out No longer eligi ble based on patient's age to complete this topic Hib Vaccine Aged Out No longer eligi ble based on patient's age to complete this topic MCV4 Vaccine Aged Out No longer eligi ble based on patient's age to complete this topic Meningococcal B Vaccine Aged Out No l onger eligible based on patient's age to complete this topic Procedures Procedure Name Priority Date/Time Associated Diagnosis Comments BASIC METABOLIC PANEL Routine 08/21/2022 5:51 AM CDT from Last 3 Months or Most Recently Relevant to Health Maintenance Results * (ABNORMAL) Basic Metabolic Panel (08/21/2022 5:51 AM CDT) Sodium 141 136 - 145 mmol/L 08/21/2022 6:36 AM T [facility] Potassium 4.5 3.5 - 5.1 mmol/L 08/21/2022 6:[address] [facility] Chloride 112(H) 98 - 109 mmol/L 08/21/2022 6:[address] [facility] CO2 20 20 - 29 mmol/L 08/21/2022 6:[address] [facility] Anion Gap 9 7 - 16 mmol/L 08/21/2022 6:[address] [facility] Calcium 9.0 8.4 - 10.4 mg/dL 08/21/2022 6:[address] [facility] BUN 53(H) 7 - 26 mg/dL 08/21/2022 6:[address] [facility] Creatinine 2.20(H) 0.73 - 1.18 mg/dL 08/21/2022 6:[address] [facility] Glucose 102(H) 70 - 100 mg/dL 08/21/2022 6:[address] [facility] Comment:The given reference range is for the fasting state. Non-fasting reference range for glucose is 70 - 180 mg/dL. GFR, Estimated 32(L) >60 mL/min/1.7 3m2 08/21/2022 6:[address] [facility] Blood Venipuncture / Unknown 08/21/2022 5:51 AM CDT 08/21/2022 6:03 AM CDT us Machelle Gregg MD LAB_1 [place] [address], [facility] [phone] from Last 3 Months or Most Recently Relevant to Health Maintenance Insurance MEDICARE [facility] MEDICARE SUPPLEMENT Advance Directives * Full Code (Latest Code Status on File) Date Activated Date Inactivated Comments 08/14/2022 2:54 PM 08/21/2022 12:21 PM Care Teams Photonic Laboratory Technician Relationship Specialty Start Date End Date Clinician, Not Found, [place] [address] PCP - General 12/11/20
--- OUTSIDE RECORDS SUMMARY | 2025-01-16 09:37 | XMS_ITS | CCD ---
Author Name Interface, [facility] l[facility] Address [address] [place] [address] [address] [address] Organization [facility] Address [address] [facility] [address] [place] [address] Care Team Providers Care Powertrain Control Systems Engineer Name Role Phone Ian Juárez MD Unavailable Unavailable Allergies and Adverse Reactions Medication/Group Name Reaction Severity Date No known allergies Reason for Visit NEW PT CONSULT 30 MIN Medications Date Name Route Dose Frequency Instructions Start Date End Date Status Fill Status Indication 07/13 Amlodipin e Oral orally 10.0 mg daily active 07/13 Hydrocodo ne-Acetam inophen Oral 5 mg-325 mg prn active 07/13 Allopurin ol Oral 50 mg daily active 07/13 Amitripty line Oral orally 10.0 mg daily active 07/13 Diclofena c Topical Gel 1 % active 07/13 Glipizide Oral ER Tab 20 mg daily active 07/13 Oceana-3 Fatty Acids Oral daily active 07/13 Aspirin Oral orally 81.0 mg daily active 07/13 Atorvasta tin Oral orally 80.0 mg daily active Problems Diagnosis Status Date of Diagnosis Resolution Date Non-small cell lung cancer (disorder) Active Social History Date Name Value 07/14/2023 Sex Male
--- OUTSIDE RECORDS SUMMARY | 2025-01-16 09:37 | XMS_ITS | Encounter Summary ---
Author Organization [facility] Address [address] [place] [address] Phone Care Team Providers Care Fuel Retrofitting Technician Name Role Phone Dorinda [facility] DO Primary Care Provider [phone] Encounter Details Date Type Department Care Team (Late st Contact Info) Description 12/08/2024 Orders Only [facility] [address] [place] [address] [address] Feliciano Soria MD [address] [place] [address] Stage 3b chronic kidney disease (HCC) Social History Tobacco Use Types Packs/Day [...] st Contact Info) Description 02/01/2025 3:00 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 Fasting reference interval For someone without known diabetes, a glucose value >125 mg/dL indicates that they may have diabetes and this should be confirmed with a follow-up test. BUN 30(H) 7 - 25 mg/dL [facility] Creatinine 1.65(H) 0.70 - 1.28 mg/dL [facility] eGFR CKD-EPI CR 2020 44(L) > OR = 60 mL/min/1.7 3m2 [facility] BUN/Creatinine Ratio 18 6 - 22 (calc) [facility] Sodium 136 135 - 146 mmol/L [facility] Potassium 4.7 3.5 - 5.3 mmol/L [facility] Chloride 102 98 - 110 mmol/L [facility] Bicarbonate (CO2) 24 20 - 32 mmol/L [facility] Calcium 9.6 8.6 - 10.3 mg/dL [facility] Blood specimen (specimen) Venous blood / Unknown 12/15/2024 9:19 AM CDT 12/15/2024 9:21 AM CDT Narrative Resulting Agency Comment Performing Organization Information: Site ID: [id number] Name: [facility] Address: [address] [place] [id number] Director: Marco Sutton us Feliciano Soria MD LAB BLOOD ORDERABLES Final Resul t [facility] [address] [place] [address] documented in this encounter Visit Diagnoses Diagnosis Stage 3b chronic kidney disease (HCC) documented in this encounter Care Teams Fuel Retrofitting Technician Relationship Specialty Start Date End Date Dorinda [facility] DO [address] [place] [address] PCP - General Family Medicine 09/22/23 documented as of this encounter
--- OUTSIDE RECORDS SUMMARY | 2025-01-16 09:37 | XMS_ITS | Encounter Summary ---
Author Organization [facility] Address [address] [place] [address] Phone Care Team Providers Care Is/It Project Manager Name Role Phone Dorinda [facility] DO Primary Care Provider [phone] Encounter Details Date Type Department Care Team [...] st Contact Info) Description 02/01/2025 3:00 PM CHEMICALS DISTILLER Office Visit [facility] [address] [place] [address] [address] Feliciano Soria MD [address] [place] [address] documented as of this encounter Visit Diagnoses Not on filedocumented in this encounter Care Teams Is/It Project Manager Relationship Specialty Start Date End Date Dorinda [facility] DO [address] [place] [address] PCP - General Family Medicine 09/22/23 documented as of this encounter
--- OUTSIDE RECORDS SUMMARY | 2025-01-16 09:37 | XMS_ITS | Encounter Summary ---
Author Organization [facility] Address [address] [place] [address] Phone Care Team Providers Care In Class Special Education Teacher Name Role Phone Dorinda [facility] DO Primary Care Provider [phone] Encounter Details Date Type Department Care Team (Late st Contact Info) Description 12/28/2024 Telephone [facility] [address] [place] [address] Shaye Connell, RN [address] [place] [address] Social History Tobacco Use Types Packs/Day Years [...] encounter Miscellaneous Notes * Telephone Encounter - Shaye Connell RN - 12/28/2024 9:58 AM CST Pt's (PHI) calling, reviewed lab results with her and answered those questions. Their lab did not locate orders faxed and she voiced frustrations. Wants hard copy mailed; blue sticky note updated. Also wanted his allopurinol refilled as appt had been rescheduled for Dec. Refilled per protocol. documented in this encounter Plan of Treatment Upcoming Encounters Date Type Department Care Team (Late st Contact Info) Description 02/01/2025 3:00 PM CONFIGURATOR Office Visit [facility] [address] [place] [address] Feliciano Soria MD [address] [facility] [address] [id number] documented as of this encounter Visit Diagnoses Diagnosis Nephrolithiasis documented in this encounter Care Teams In Class Special Education Teacher Relationship Specialty Start Date End Date Dorinda [facility] DO [address] [place] [address] PCP - General Family Medicine 09/22/23 documented as of this encounter
--- OUTSIDE RECORDS SUMMARY | 2025-01-16 09:37 | XMS_ITS | Clinical Summary ---
Author Organization [facility] Address [address] [place] [address] Care Team Providers Care Dye Penetrant Testing Technician Name Role Phone Unavailable Primary Care Provider Unavailabl e Source Comments Patient records contain information from all sites at [facility]. For routine questions regarding patient records, call [phone] during business hours, M-F 8:00 AM - 5:00 PM Central Time. Record requests for emergency care only can be directed to [phone] at any time.[facility] Allergies No known active allergies Medications amitriptyline (ELAVIL) 10 mg tablet Take 10 mg by mouth. 4 Active amLODIPine (NORVASC) 10 mg tablet Take 1 tablet by mouth daily. 3 Active aspirin 81 mg chewable tablet Chew 81 mg. 3 Active blood sugar diagnostic strips (OneTouch Verio test strips) Dispense item covered by pt ins. E11.9 NIDDM type II - Test 3 times/day, Reason: High A1C 3 Active diclofenac sodium (VOLTAREN) 1 % gel Apply 4 g topically. 4 Active glipiZIDE (GLUCOTROL XL) 10 mg 24 hr tablet Take 20 mg by mouth. 3 Active HYDROcodone-ac etaminophen (NORCO) 5-325 mg per tablet Take one tablet by mouth two times a day as needed for pain. Max acetaminophen dose: 4000 mg in 24 hrs. Rx to last 30 days. use dates:07/15/23- 4 Active lisinopriL (PRINIVIL,ZEST RIL) 40 mg tablet Take 1/2 tablet (20 mg) twice daily 3 Active metFORMIN (GLUCOPHAGE) 1,000 mg tablet Take 1,000 mg by mouth. 3 Active omega-3 fatty acids-fish oil 340-1,000 mg per capsule Take 1 g by mouth. Active Ozempic 1 mg/dose (4 mg/3 mL) injection Inject 1 mg under the skin over 168 hr. 4 Active sennosides (SENOKOT) 8.6 mg tablet Take 1 tablet by mouth daily. Active apixaban (Eliquis) 5 mg tablet Take 1 tablet by mouth 2 (two) times a day. 4 Active allopurinoL (Zyloprim) 100 mg tablet Take 100 mg by mouth daily. 3 Active atorvastatin (Lipitor) 80 mg tablet Take 80 mg by mouth. 3 Active L.acidoph-L.bu lg-B.bif-S.the rm (Bacid) 1 billion cell- 250 mg per tablet Take 1 tablet by mouth 2 (two) times a day with meals. Active SITagliptin phosphate (Januvia) 50 mg tablet Take 50 mg by mouth daily. 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 12/10/2024 1:30 PM CDT - 12/11/2024 3:15 PM CDT Hospital Encounter Department of Radiation Oncology in [place], [place] [address] [place] [address] Kev Hoffmann M.D. Malignant Neoplasm Of Lung Lower Lobe Or Bronchus Left (HCC) (Primary Dx) from Last 3 Months Family History Medical [...] 2 drinks/month [facility] Utilities Answer Date Recorded In the past [...] your living situation today? I have a [facility] place to live 07/28/2023 Sex and Gender Information Value Date Recorded Sex Assigned at Male 07/28/2023 10:23 AM CDT Legal Sex Male 7:57 AM HUNTER Gender Identity Male 07/28/2023 10:23 AM CDT Sexual Orientation Not on file Last Filed Vital Signs Vital Sign Reading Time Taken Comments Blood Pressure 148/90 12/10/2024 1:33 PM CDT Pulse 103 12/10/2024 1:33 PM CDT Temperature 36.4 C (97.6 F) 12/10/2024 1:33 PM CDT Respiratory Rate 20 04/14/2011 6:10 PM HUNTER Oxygen Saturation - - Inhaled Oxygen Concentration - - Weight 98.6 kg (217 lb 6 oz) 12/10/2024 1:33 PM CDT Height - - Body Mass Index - - Plan of Treatment Upcoming Encounters Date Type Department Care Team (Late st Contact Info) Description 02/02/2025 1:30 PM HUNTER Appointment Department of Radiation Oncology in [place] [id number] [place] [address] Kev Hoffmann M.D. [address] [place] [address] Health Maintenance Due Date Last Done Comments CT Colonography 1955 Cologuard 1955 Colonoscopy 1955 Colorectal Cancer Screening 1955 FIT 1953 Tobacco Cessation counseling 1955 Pneumococcal vaccine (50+ years) (2 of 2 - PCV) 03/07/2022 03/07/2021 Depression Screening (Annual PHQ-2) 02/25/2024 Fall Risk Screen (Annual) 02/25/2024 COVID-19 Vaccine ( season) 2024 07/14/2024, 12/05/2023, 2023, Additional history exists Sodium Level 02/05/2025 02/06/2024, 10/27, 11/21/2023, Additional history exists Creatinine Level (Kidney Function Test) 06/09/2025 06/09/2024, 02/06/2024, 12/30/2023, Additional history exists Potassium Level 06/09/2025 06/09/2024, 01/24, 12/30/2023, Additional history exists Fasting Glucose for Diabetes Screening 01/04/2028 01/03/2025, 09/10/2024, 06/09/2024, Additional history exists DTaP,Tdap,and Td Vaccines (3 - Td or Tdap) 02/04/2033 02/04/2023, 01/10/1971 Hepatitis B Screening Discontinued 08/14/2011 Hepatitis C Screening Completed 08/14/2011 Abdominal Aortic Aneurysm (AAA) Screen Completed 09/15/2022, 12/11/2020, 07/27/2006, Additional history exists Zoster Vaccines Completed 01/17/2023, 11/08/2022 RSV vaccine - (32-36 weeks) or 50+ years Completed 12/12/2023 Influenza Vaccine Completed 11/15/2024, , 01/15/2023 HPV Vaccines Aged Out No longer eligi ble based on patient's age to complete this topic IPV Vaccines Aged Out No longer eligi ble based on patient's age to complete this topic Procedures Procedure Name Priority Date/Time Associated Diagnosis Comments OUTSIDE CT BODY Routine 01/12/2025 9:[address] NEURO Routine 01/12/2025 2:35 PM HUNTER OUTSIDE DX CHEST Routine 01/12/2025 2:[address] BODY Routine 12/06/2024 10:20 AM CDT HXZZORDERS Routine 08/14/2011 2:46 PM CDT HEPATITIS B SURFACE ANTIGEN Routine 08/14/2011 2:[address] ABDOMEN WITHOUT IV CONTRAST Routine 07/27/2006 4:40 AM CDT from Last 3 Months or Most Recently Relevant to Health Maintenance Results * CT chest abdomen pelv w con-Outside CT Body (01/12/2025 9:00 PM HUNTER) Only the most recent of2 resultswithin the time period is included. Narrative [facility] - 01/14/2025 10:02 AM HUNTER This order has been created and auto-finalized to support the import of outside images. If available, original interpretation can be found on the Media Tab in Chart Review, in Document Viewer, as an image in InfinityView or as an Addendum. If a re-interpretation or overread is required please follow defined workflow. us Provider Not In System IMG CT PROCEDURES Final R esult IIMS NA * CT HEAD/BRAIN WO CON-Outside CT Neuro (01/12/2025 2:35 PM HUNTER) Narrative [facility] - 01/14/2025 9:58 AM HUNTER This order has been created and auto-finalized to support the import of outside images. If available, original interpretation can be found on the Media Tab in Chart Review, in Document Viewer, as an image in InfinityView or as an Addendum. If a re-interpretation or overread is required please follow defined workflow. us Provider Not In System IMG CT PROCEDURES Final R esult Performing Organization Address [facility] de Phone Number II NA * XR chest 2V-Outside Chest Xray (01/12/2025 2:35 PM HUNTER) Narrative [facility] - 01/14/2025 9:55 AM HUNTER This order has been created and auto-finalized to support the import of outside images. If available, original interpretation can be found on the Media Tab in Chart Review, in Document Viewer, as an image in InfinityView or as an Addendum. If a re-interpretation or overread is required please follow defined workflow. us Provider Not In System IMG DIAGNOSTIC IMAGING OR OCEDURES Final Result Performing Organization Address [facility] de Phone Number II NA * HXZZORDERS (08/14/2011 2:46 PM CDT) HXHep C Ab-Gifford Negative Negative POWERCHART Comment: Wyjckq-ej-zqayml ratio is <1.00. Test Performed by: [place] [address] Scrap Collector: Octavio Harris III, M.D. Blood 08/14/2011 2:46 PM CDT Maria E QuintanaC. LAB HISTORICAL ORDERS Fi nal Result Performing Organization Address [facility] de Phone Number POWERCHART * Hepatitis B Surface Antigen (08/14/2011 2:46 PM CDT) Interpretation Negative POWERCHART Blood 08/14/2011 2:46 PM CDT Maria E DelgadoA.-C. LAB MICROBIOLOGY - BLOOD ORDERABLES Final Result Performing Organization Address [facility] de Phone Number POWERCHART * CT Abdomen without IV Contrast (07/27/2006 4:40 AM CDT) Anatomical Region Laterality Modality Abdomen N/A Computed Tomogra phy 07/27/2006 4:40 AM CDT Narrative 07/27/2006 4:40 AM CDT Originally Signed By Contributor_system [facility]_HX_RAD_SYS INDICATION: Right abdominal back pain. CT OF THE ABDOMEN AND PELVIS - 07/27/06: Noncontrast CT of the abdomen and pelvis is negative for renal or ureteral stones. A normal appendix is identified. There are aortoiliac vascular calcifications. Examination is otherwise unremarkable. REPORT SIGNATURE ON FILE 07/30/2006 Reported By: Neymar Graham M.D. Signed By: Neymar Graham MD Transcribed: 07/28/2006 ([id number]) [email or web address].AL CC: Marko Foster MD Procedure Note Provider, Vic Edmonds - 07/31/2016 Originally Signed By Contributor_system [facility]_HX_RAD_SYS INDICATION: Right abdominal back pain. CT OF [...] Foster MD Historical Provider IMG CT PROCEDURES Final Resu lt from Last 3 Months or Most Recently Relevant to Health Maintenance Insurance MEDICARE [facility]
--- OUTSIDE RECORDS SUMMARY | 2025-01-16 09:37 | XMS_ITS | Clinical Summary ---
Author Organization [facility] Address [address] [place] [address] Phone Care Team Providers Care Door Technician Name Role Phone Dorinda Washington DO Primary Care Provider [phone] Allergies No known active allergies Medications amitriptyline (ELAVIL) 10 MG tablet Take 10 mg by mouth in the morning. 09/02/19 24 Active amLODIPine (NORVASC) 10 MG tablet Take 10 mg by mouth in the morning. 02/05/20 23 Active Eliquis 5 MG tablet Take 5 mg by mouth in the morning and 5 mg in the evening. 11/22/19 24 Active aspirin 81 MG chewable tablet Chew 81 mg in the morning. 08/15/19 23 Active atorvastatin (LIPITOR) 80 MG tablet Take 80 mg by mouth in the morning. 02/05/20 23 Active fish oil-omega-3 fatty acids 1000 MG capsule Take 1 g by mouth 1 (one) time each day Active glipiZIDE (GLUCOTROL XL) 10 MG 24 hr tablet Take 20 mg by mouth in the morning. 06/02/19 24 Active HYDROcodone-ac etaminophen (NORCO) 5-325 MG per tablet TAKE 1 TABLET BY MOUTH TWICE DAILY NEEDED FOR PAIN. MAX ACETAMINOPHEN DOSE 4000MG IN 24 HOURS. USE 11/12/23-12/11/23 Active meclizine (ANTIVERT) 25 MG tablet Take 25 mg by mouth 3 (three) times a day if needed for dizziness 11/28/19 24 Active metFORMIN (GLUCOPHAGE) 500 MG tablet Take 500 mg by mouth in the morning and 500 mg in the evening. 09/10/19 24 Active Naloxone HCl 4 MG/0.1ML liquid 11/10/19 24 Active Stimulant Laxative 8.6-50 MG per tablet USE UP TO 2 TABLETS TWICE DAILY NEEDED FOR WORSENING OF CONSTIPATION Active Lidocaine 5 % cream Apply topically Apply topically to affected area(s) 2 times daily if needed (bilateral shoulder pain). Apply topically to affected area(s) 2 times daily if needed (bilateral shoulder pain). Active SITagliptin (JANUVIA) 50 MG tablet Take 50 mg by mouth in the morning. 12/09/19 25 Active lisinopril (PRINIVIL,ZEST RIL) 30 MG tablet Take 30 mg by mouth in the morning. 09/21/19 25 Active Ozempic, 1 MG/DOSE, 4 MG/3ML solution pen-injector INJECT 1 MG UNDER THE SKIN ONE DAY A WEEK 10/23/19 25 Active allopurinol (ZYLOPRIM) 100 MG tabletIndicati ons:Nephrolith iasis Take 1 tablet (100 mg total) by mouth 1 (one) time each day 90 tablet 12/29/19 25 026 Active lisinopril 40 MG tablet Take 1/2 tablet (20 mg) twice daily 06/02/19 24 025 Discontin ued(Med List Maintenan ce) allopurinol (ZYLOPRIM) 100 MG tabletIndicati ons:Nephrolith iasis Take 1 tablet (100 mg total) by mouth 1 (one) time each day 30 tablet 12/07/19 25 025 Discontin ued(Reord er (does not appear on AVS)) Active Problems Problem Noted Date Diagnosed Date Nephrolithiasis 12/09/2023 Overview (12/09/2023): History of uric acid stone. 24h urine collection, showing high uric acid supersaturation, low urine pH. Allopurinol 50 mg started 12/2022. Repeated litholink 10/08/23 with 3L urine volume, low uric acid supersaturation, improvement in urine pH to 5.8 and no other concerning risk factors for stone development. 4-5 occurrences with the last in 2022 requiring stone extraction due to hydronephrosis within one of the kidneys. Assessment & Plan (12/09/2023 1:50 PM CDT): Stable. Stone free. Very recent imaging of the kidneys this past year with CT, (last in May 2023) showed no evidence of stone formation. Last uric acid level was 5.9. He is tolerating the current allopurinol dose very well. More than appropriate to maximize uric acid lowering with increasing allopurinol dose to 100 mg a day. Patient is in agreement and therefore we will send in a prescription for the new dose at 100 mg a day moving forward. Cerebrovascular accident 12/08/2023 Overview (12/08/2023): July 2022. October 2023. Patrick secondary to undiagnosed atrial fibrillation. Anticoagulation. Apixaban. Tobacco use 12/08/2023 Overview (12/08/2023): Patient has been smoking the majority of his adult life. Monoclonal gammopathy of undetermined significan ce (MGUS) 12/08/2023 Overview (12/08/2023): Several SPEP's from October 2022, January 2023, June 2023, in October 2023 showing stable magnitude of monoclonal peak at 0.06 g/dL. IgG kappa. Patient has been following with hematology since November 2022 with stable hemoglobin values. Assessment & Plan (12/09/2023 1:51 PM CDT): Stable. I do not see this impacting his GFR at this time. Defer to green belt. Squamous cell carcinoma of lung, TNM stage 1 Overview (12/27/2024): Without metastasis. Continues to smoke. Infrahilar left lower lobe, status post radiation management. Patient declined surgery and proceeded with radiation in July 2023. [facility] oncology. Assessment & Plan (12/09/2023 1:51 PM CDT): Stable. Defer further to oncology. Hypertensive chronic kidney disease, benign, with chronic kidney disease stage I through stage IV, or unspecified 12/02/2023 Assessment & Plan (12/09/2023 1:50 PM CDT): Stable. Excellent blood pressure control. Continue ZUHAIR inhibitor as ordered. Continue amlodipine as ordered. Stage 3b chronic kidney disease 10/03/2022 Overview (12/08/2023): Baseline creatinine in the high ones-2 stretching back to 2020. Benign urinalysis from June 2018 Urine albumin creatinine ratio 15 mg/g from October 2023. CT scan of the body August 2022: 5 mm stone in the proximal right ureter and 7 mm stone in the distal right ureter with moderate right hydronephrosis; 6 mm and 4 mm left ureteral stones with no significant hydronephrosis. CT scan of the chest May 2023: Both kidneys present with no hydronephrosis. Assessment & Plan (12/09/2023 1:50 PM CDT): Stable. Appears to continue to be tolerating RAAS inhibitor well. Continue as ordered. Tentative follow-up in 1 year. Type 2 diabetes mellitus wit h diabetic chronic kidney disease 03/04/2012 Overview (12/08/2023): + DMR in both eyes Assessment & Plan (12/09/2023 1:51 PM CDT): Stable. Appears to be tolerating current medication regimen well. Based on current polypharmacy, I would lean towards avoiding this further and holding off on SGLT2 inhibitor class of medications just yet. For the time being, based on stability of GFR, more than reasonable to continue metformin as ordered. Resolved Problems Problem Noted Date Diagnosed Date Resolved Date Gout 12/09/2023 12/09/2023 Morbid obesity 12/08/2023 12/09/2023 Encounters Date Type Department Care Team Description 12/28/2024 Telephone [facility] [address] [place] [address] Shaye Connell, RN 12/27/2024 Orders Only [facility] [place] [address] [place] [phone] Kenricknury RenaeDario 12/16/2024 Results Follow-Up [facility] [place] [address] [place] [phone] Cristiana Owens RN 12/08/2024 Orders Only [facility] [place] [address] [place] [address] Feliciano Soria MD Stage 3b chronic kidney disease (HCC) 12/05/2024 Refill [facility] [place] [address] [place] [address] Feliciano Soria MD Nephrolithiasis 12/01/2024 Telephone [facility] [address] [place] [phone] Bess Mccall DIRECTOR OF CARDIAC CATH LAB from Last 3 Months Immunizations Immunization Administration Dates Next Due Influenza Vaccine, Quadrivalent, Adjuvanted 12/26 Influenza, Trivalent, Adjuvanted 12/10/2023 Moderna Sars-cov-2 (Covid-19 ) Vaccine, Mrna, Juan Protein 07/14/2024,12/05/2023 Pfizer Covid-19 Vaccine, Mrn a, LNP-S, PF, agustin-sucrose, 30 mcg/0.3 mL 2023 Pfizer SARS-COV-2 2023,09/04/2022 Pfizer SARS-CoV-2 Bivalent 30 mcg/0.3 mL 023 Pneumococcal Conjugate Pcv 20 11/08/2022 Pneumococcal Polysaccharide 03/07/2021 Shingrix 01/17/2023,11/08/2022 Tdap 02/04/2023 Family History Medical History Relation Comments Hypertension Father Stroke Father Stroke Mother Cancer Sibling Diabetes Sibling Relation Status Comments Father Mother Sibling Social History Tobacco Use Types Packs/Day [...] Sign Reading Time Taken Comments Blood Pressure 120/74 12/09/2023 1:10 PM CDT Pulse 96 12/09/2023 1:10 PM CDT Temperature - - Respiratory Rate - - Oxygen Saturation 97% 12/09/2023 1:10 PM CDT Inhaled Oxygen Concentration - - Weight 100 kg (221 lb) 12/09/2023 1:10 PM CDT Height 195.6 cm (6' 5) 12/09/2023 1:10 PM CDT Body Mass Index 26.21 12/09/2023 1:10 PM CDT Plan of Treatment Upcoming Encounters Date Type Department Care Team (Late st Contact Info) Description 02/01/2025 3:00 PM MAIL AGENT Office Visit [facility] [address] [place] [address] Feliciano Soria MD [address] [address] Health Maintenance Due Date Last Done Comments Colorectal Cancer Screening: Annual FOBT 2002 Colorectal Cancer Screening: Colonoscopy 2002 Colorectal Cancer Screening: Sigmoidoscopy 2002 Diabetes: Pedal Pulse Checked 05/16/2019 Diabetes: Sensory Foot Exam 05/16/2019 Diabetes: Visual Foot Exam 05/16/2019 Diabetes: Ophthalmology Exam 12/21/2023 12/20/2022 Diabetes: Hemoglobin A1C 04/05/2025 025, 09/10/2024, 06/09/2024, Additional history exists Pneumococcal Vaccine: 50+ Years Completed 11/08/2022, 03/07/2021 Pneumococcal Vaccine: Peds (0 to 5 Years) and At-Risk Patients (6 to 49 Years) Discontinued 11/08/2022, 03/07/2021 Influenza Vaccine Completed 11/15/2024, , 01/15/2023 Hepatitis B Vaccine Aged Out No longe r eligible based on patient's age to complete this topic Procedures Procedure Name Priority Date/Time Associated Diagnosis Comments BASIC METABOLIC PANEL Routine 12/15/2024 9:19 AM CDT Stage 3b chronic kidney disease (HCC) HEMOGLOBIN A1C Routine 07/03/2018 9:46 AM CDT from Last 3 Months or Most Recently Relevant to Health Maintenance Results * (ABNORMAL) Basic Metabolic Panel (12/15/2024 9:19 AM CDT) Glucose 431(H) 65 - 99 mg/dL [facility] Comment: Verified by repeat analysis. [...] Performing Organization Information: Site ID: CB Name: [facility] Address: [address] [place] [id number] Director: Marco Sutton Feliciano Soria MD LAB BLOOD ORDERABLES Final Resul t [facility] [address] [place] [address] * (ABNORMAL) Hemoglobin A1c (07/03/2018 9:46 AM CDT) Glycosylated Hemoglobin a1C 6.9(H) <5.7 % [facility] Estimated Average Glucose 151(H) <117 mg/dL [facility] 07/03/2018 9:46 AM CDT Magdaleno Ernst MD LAB BLOOD ORDERABLES Final Resul t [facility] from Last 3 Months or Most Recently Relevant to Health Maintenance Insurance Medicare [facility] Care Teams Door Technician Relationship Specialty Start Date End Date Dorinda Washington DO [address] [place] [address] PCP - General Family Medicine 09/22/23
--- OUTSIDE RECORDS SUMMARY | 2025-01-16 09:37 | XMS_ITS | Encounter Summary ---
Author Organization [facility] Address [address] [place] [address] Phone Care Team Providers Care Pipe Line Walker Name Role Phone Dorinda Washington DO Primary Care Provider [phone] Encounter Details Date Type Department Care Team (Late st Contact Info) Description 03/01/2019 Orders Only [facility] [place] [address] [place] [address] Deborah Peres RN Chronic kidney disease, Stage III (moderate) ([facility]) Social History Tobacco Use Types Packs/Day Years [...] st Contact Info) Description 02/01/2025 3:00 PM AERIAL SURVEY TECHNICIAN Office Visit [facility] [place] [address] [place] [address] Feliciano Soria MD [address] [place] [address] documented as of this encounter Visit Diagnoses Diagnosis Chronic kidney disease, Stage III (moderate) documented in this encounter Care Teams Pipe Line Walker Relationship Specialty Start Date End Date Dorinda Washington DO [address] [place] [address] PCP - General Family Medicine 09/22/23 documented as of this encounter
--- OUTSIDE RECORDS SUMMARY | 2025-01-16 09:37 | XMS_ITS | Encounter Summary ---
Author Organization [facility] Address [address], [place] [address] Care Team Providers Care Casting Finisher Name Role Phone Clinician, Not Found MD Primary Care Provider Un available Reason for Visit * Reason Comments Progress Report PT Progress 12/22/24 Encounter Details Date Type Department Care Team (Late st Contact Info) Description 12/23/2024 Telephone Physiatry/Physical Medicine at [facility] [address] [facility] [place], [place] [phone] Han Bradley MD [address] [place], [place] [phone] Progress Report (PT Progress 12/22/24) Social History Tobacco Use Types Packs/Day Years [...] as of this encounter Nursing Notes * Melecio Rahman - 12/27/2024 2:33 PM CST Received from ID to do bin. Faxed to [facility] at [phone]. Confirmation received. Form sent to scanning. Thanks. Melecio Rahman 12/27/2024, 2:33 PM TRODE CLEANER * Machelle Irene CMA - 12/24/2024 8:28 AM CDT Provider has signed the form/document or completed request below. Please fax or send as requested. Placed in ID to do. Machelle Ascencio CMA ([facility]), 12/24/2024 8:28 AM * Melecio Rahman - 12/23/2024 1:22 PM CDT Received a fax from [facility] PT Progress evaluation from 12/22/24 Requesting signature. Fax is in provider right fax folder to sign. Melecio Rahman 12/23/2024, 1:22 PM documented in this encounter Plan of Treatment Not on file documented as of this encounter Visit Diagnoses Not on filedocumented in this encounter Care Teams Casting Finisher Relationship Specialty Start Date End Date Clinician, Not Found, [facility] [place] [address] PCP - General 12/11/20 documented as of this encounter
--- OUTSIDE RECORDS SUMMARY | 2025-01-16 09:37 | XMS_ITS | Encounter Summary ---
Author Organization [facility] Address [address] [place] [address] Phone Care Team Providers Care Greenhouse Technician Name Role Phone Dorinda Washington DO Primary Care Provider [phone] Encounter Details Date Type Department Care Team (Late st Contact Info) Description 12/16/2024 Results Follow-Up [facility] [address] [place] [address] Cristiana Owens RN [address] [place] [phone] Social History Tobacco Use Types Packs/Day Years [...] st Contact Info) Description 02/01/2025 3:00 PM CASH CONTROLLER Office Visit [facility] [place] [address] [place] [address] Feliciano Soria MD [address] [facility] [address] [place] [phone] documented as of this encounter Visit Diagnoses Not on filedocumented in this encounter Care Teams Greenhouse Technician Relationship Specialty Start Date End Date Dorinda Washington [place] [address] PCP - General Family Medicine 09/22/23 documented as of this encounter
--- OUTSIDE RECORDS SUMMARY | 2025-01-16 09:37 | XMS_ITS | Encounter Summary ---
Author Organization [facility] Address [address] [address] Phone Care Team Providers Care Nurse Aide Name Role Phone Yousuf Bernard MD Primary Care Provider [phone] Reason for Visit * Reason Comments Med Refill Encounter Details Date Type Department Care Team (Late st Contact Info) Description 10/22/2023 [facility] [address] [facility] [address] [place], [place] [phone] Jin Shipley MD [address] [facility] [address] [facility] [address] [place], [place] [phone] Social History Tobacco Use Types Packs/Day Years [...] on filedocumented in this encounter Care Teams Nurse Aide Relationship Specialty Start Date End Date Yousuf Bernard MD [address] [place] [address] PCP - General 02/14/23 documented as of this encounter
--- OUTSIDE RECORDS SUMMARY | 2025-01-16 09:38 | XMS_ITS | Clinical Summary ---
Author Organization [employer] [facility] Address [address] [place] [id number] Care Team Providers Care Student Success Counselor Name Role Phone Dorinda Washington DO Primary Care Provider [phone] Faith Donovan RN Unavailable Kennedi Perry RN, BSN, OCN Unavailable AleshaHina RN Unavailable Han Bradley MD Unavailable Emma Brown RD Unavailable Feliciano Soria MD Unavailable [place] Unavailable Unavailable [facility] Unavailable Allergies No known active allergies Medications lancets (OneTouch Delica Plus Lancet) 30 gauge miscIndications:Type 2 diabetes mellitus with diabetic 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, 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) As directed. Dispense item covered by pt ins. E11.9 NIDDM type II - Test 3 times/day, Reason: High A1C 100 Each 5 023 Active medication order composer Enzymedica Digestive Enzyme: 1 capsule po daily. Mitocore: 2 tablets po daily. Garden of Life Probiotic 30 billion: 1 capsule po daily. 024 Active naloxone (NARCAN) 4 mg/actuation nasal sprayIndications:Enc ounter for therapeutic drug monitoring Inhale 1 [place] into affected nostril(s) each time if needed for Patient Diff To Arouse or Resp Rate < 8 / min. Additional doses may be given every 2 to 3 minutes until emergency medical assistance arrives. 2 Each 024 Active blood sugar diagnostic (OneTouch Verio test strips) stripIndications:Typ e 2 diabetes mellitus with diabetic 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, 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) Dispense item covered by pt ins. E11.9 NIDDM type II - Test 3 times/day, Reason: High A1C 300 Each 3 024 Active continuous glucose monitor SENSOR KIT (QHB HOLDINGSLE RACHEL)Indications:Ty pe 2 diabetes mellitus with diabetic 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, 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) To be used to read blood sugars per corn picker' s directions. 6 Each 3 024 Active continuous glucose monitor READER (QHB HOLDINGSLE RACHEL)Indications:Ty pe 2 diabetes mellitus with diabetic 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, 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) To be used to read blood sugars per corn picker' s directions. 1 Each 024 Active polyethylene glycoL (MIRALAX) 17 gram/scoop powderIndications:Op ioid-induced constipation Mix 1 scoop (17 g) in liquid then take by mouth once daily. 510 g 11 024 Active allopurinoL 100 mg tablet Take 100 mg by mouth two times daily. Active amLODIPine 10 mg tabletIndications:HT N (hypertension) TAKE 1 TABLET(10 MG) BY MOUTH EVERY DAY 90 Tablet 2 025 Active metFORMIN (GLUCOPHAGE) 500 mg tabletIndications:Ty pe 2 diabetes mellitus with hyperglycemia, 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) Take 1 Tablet (500 mg) by mouth two times daily with meals. 180 Tablet 3 025 Active Kwfgumvcmie-EB-Qt-S. thermophl 1 billion cell- 250 mg tab Take 1 Tablet by mouth. Active amitriptyline 10 mg tabletIndications:Ne uropathic pain,Chronic neck pain Take 1 Tablet (10 mg) by mouth at bedtime. For chronic neuropathic/ chronic pain syndrome. 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 90 Tablet 3 025 Active apixaban (ELIQUIS) 5 mg tabletIndications:pr event thromboembolism in chronic atrial fibrillation,acute stroke in the setting of hypercoagulability of lung cancer Take 1 Tablet (5 mg) by mouth two times daily. 180 Tablet 3 025 Active glipiZIDE extended-release (GLUCOTROL XL) 10 mg Extended-Release tabletIndications:Ty pe 2 diabetes mellitus with diabetic 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, 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) TAKE 2 TABLETS(20 MG) BY MOUTH DAILY BEFORE A MEAL 60 Tablet 025 Active Walker - 4 wheelsIndications:Re current falls,Generalized weakness For home use. Length of need: 12 months 1 Each 025 Active lisinopriL (PRINIVIL; ZESTRIL) 10 mg tabletIndications:HT N (hypertension) Take 1 Tablet (10 mg) by mouth once daily. 90 Tablet 3 025 Active HYDROcodone-acetamin ophen (5-325 mg/tablet)Indication s:Neuropathic pain Take 1 Tablet by mouth two times daily. 60 Tablet 025 Active predniSONE (DELTASONE) 20 mg tabletIndications:Ge neralized weakness,ESR raised Take 1 Tablet (20 mg) by mouth once daily with a meal. 5 Tablet 025 Active predniSONE (DELTASONE) 20 mg tablet Take 20 mg by mouth once daily. 025 Active predniSONE (DELTASONE) 20 mg tabletIndications:Ne uropathic pain,Recurrent falls,Generalized weakness Take 1 Tablet (20 mg) by mouth once daily with a meal. 3 Tablet 025 Active meclizine (ANTIVERT) 25 mg tabletIndications:Di zziness Take 1 Tablet (25 mg) by mouth 3 times daily if needed for Vertigo. 30 Tablet 024 2024 Discontinued( *Patient states no longer taking) glipiZIDE extended-release 10 mg Extended-Release tabletIndications:Ty pe 2 diabetes mellitus with diabetic 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, 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) Take 2 Tablets (20 mg) by mouth once daily before a meal. 180 Tablet 1 025 2024 Discontinued HYDROcodone-acetamin ophen (5-325 mg/tablet)Indication s:Neuropathic pain Take 1 Tablet by mouth two times daily. Use dates: 10/14/24-10/25 11/18; 10/12/2024 60 Tablet 025 2024 Discontinued( Reorder (E-cancel not sent)) lisinopriL (PRINIVIL; ZESTRIL) 30 mg tabletIndications:HT N (hypertension) Take 1 Tablet (30 mg) by mouth once daily. 90 Tablet 3 025 2024 Discontinued( *Medication adjustment) HYDROcodone-acetamin ophen (5-325 mg/tablet)Indication s:Neuropathic pain Take 1 Tablet by mouth two times daily. Use dates: 09/14/24-09/25 60 Tablet 025 2024 Discontinued( Duplicate therapy (E-cancel not sent)) Active Problems Problem Noted Date Diagnosed Date Controlled substance agreement signed 06/15/2024 Overview (06/15/2024): UP Basal cell carcinoma (BCC) of skin of neck 06/09 Skin cancer 02/11/2024 Overview (06/07/2024): 02/04/24: right lateral neck, nBCC, Dr. Deny Vargas Mohs 06/07/24 Hypertensive heart disease with heart failure Carotid artery stenosis with cerebral infarction 11/20/2023 [...] Encounters Date Type Department Care Team Description 01/14/2025 Home Care Visit [facility] [address] [place] [phone] Octavia Bryson, RN SN - OASIS TRANSFER 01/12/2025 Home Care Visit [facility] [address] [place] [phone] Octavia Bryson, BUILDING MAINTENANCE TECHNICIAN NOTE 01/12/2025 Travel 01/11/2025 Home Care Visit [facility] [address] [place] [phone] Denisse Gordon, YESSICA CARE COORDINATION 01/09/2025 Home Care Visit [facility] [address] [place] [phone] Jasmyne Lee, OT CARE COORDINATION 01/08/2025 Nurse Triage [id number] [place] [address] Padmini Dorinda Beth, DO Contact Preference 01/05/2025 11:00 AM BELT BUILDER Home Care Visit [facility] [address] [facility] [place] [phone] Cristina Bower, RN SN - OASIS START OF CARE 01/05/2025 Plan of Care Documentation [facility] [address] [facility] [place] [phone] 01/05/2025 Telephone [facility] [phone] Cristina Bower RN Home Care (Home care orders) 01/05/2025 Telephone [facility] [phone] Padmini Dorinda Beth, DO 01/04/2025 Telephone [facility] [address] [place] [address] Maxra Dorinda Beth, DO provider to provider 01/03/2025 10:35 AM BELT BUILDER Office Visit [facility] [address] [place] [address] Shaqra Dorinda Beth, DO Weak (Pt/spouse report overall weakness, fall x3-4 over the last 10-12 days, decrease in appetite, fever, cough - had Hep B vaccine 12/24) 01/03/2025 Travel 12/28/2024 Telephone [facility] [address] [place] [address] Maxra Dorinda Beth, DO Fall; Extremity Weakness 12/23/2024 Refill [facility] [address] [place] [address] Sandeepqra Dorinda Beth, DO Refill Request (Glipizide Extended-release) 12/22/2024 Refill [facility] [address] [place] [address] Sandeepqra Dorinda Beth, DO Refill Request (Glipizide Extended-release) 12/15/2024 10:30 AM CDT Orders Only [facility] [address] [place] [address] Lab, [place] Lab 12/15/2024 Travel 12/13/2024 1:00 PM CDT Office Visit [facility] [address] [place] [phone] Nicole Bowles, OD Eye Exam (DM Exam) 12/13/2024 Travel 12/09/2024 Orders Only [facility] Scanner 1 scan: (1-Ord) [facility] LT GLENHUMERAL INJ, 12/09/2024 12/09/2024 Telephone [facility] [address] [place] [address] Padmini Dorinda Beth, DO Prior Authorization (SITagliptin phosphate (JANUVIA) 50 mg tablet - PA NOT NEEDED) 12/09/2024 Telephone [facility] [address] [place] [address] Padmini Dorinda Beth, DO Prior Authorization 12/08/2024 9:45 AM CDT Office Visit [facility] [address] [place] [address] Sir Washingtoni Beth, DO Medication Management (alternative diabetic medication) 12/08/2024 Travel 12/06/2024 10:30 AM CDT Ancillary Procedure [facility] [address] [place] [address] 12/06/2024 Travel 11/16/2024 2:10 PM CDT Office Visit [facility] [address] [place] [address] Padmini Dorinda Beth, DO Medication Problem (Ozempic- would like to get off of it due to weight loss and appetite loss ) 11/16/2024 Travel 11/14/2024 Refill [facility] [address] [place] [address] Maxra Dorinda Beth, DO Refill Request (Atorvastatin) 11/07/2024 Refill [facility] [address] [place] [address] Maxra Dorinda Beth, DO Refill Request (Amitriptyline) from Last 3 Months Immunizations Immunization Administration Dates Next Due COVID-19 VACCINE COMIRNATY ( tweetTV-BIONTECH 30MCG/0.3ML) 12YO+ PFS 2023 COVID-19 VACCINE SPIKEVAX (M ODERNA 50MCG/0.5ML) 12YO+ PFS 07/14/2024,12/05/2023 COVID-19 vaccine (Kalpesh Wireless-Bio NTech 30mcg/0.3mL) 12YO+ BIVALENT PF, MDV 09/04/2022 Hepatitis B, Unspecified 08/09/1991 Influenza, High-dose Inactivated 11/15/2024 Influenza, Inactivated AIIV4 (Age 65+ Years) Preserv Free 01/15/2023 Influenza, Inactivated IIV3 (Age 65+ Years) Preserv Free 12/10/2023 Pneumococcal Conj 20-valent (Prevnar 20) 023 Pneumococcal Poly,23-Valent (Pneumovax) 03/07/19 22 RSV, Bivalent Vaccine Recons tituted (Abrysvo 120MCG/0.5mL) 12/12/2023 Td (Age >=7 Years) 01/10/1971 Tdap 02/04/2023 Typhoid Conjugate Non-us Vaccine 01/15/2023 Zoster (Shingrix-RZV, recombinant) 01/17/2023, Family History Medical History Relation Name Comments Stroke Father Stroke Mother Relation Name Status Comments Father Mother Social History Tobacco Use Types Packs/Day Years Used Date Smoking Tobacco: Every Day Cigarettes 0.8 55.1 Started: 02/24/1973 Passive Smoke Exposure: Past Smokeless Tobacco: Never Tobacco Cessation:Ready to Q uit: Not Asked; Counseling Given: Not Answered Alcohol Use Standard Drinks/Week Comments Yes 1 (1 standard drink = 0.6 oz pur e alcohol) socially 2 drinks a month PHQ-2 Answer Date Recorded PHQ-2 TOTAL SCORE 1 09/20/2024 Social Connections Answer Date Recorded Do you often feel lonely or isolated from those around you? 0 09/20/2024 Alcohol Use Answer Date Recorded How often do you have a drink containing alcohol ? 1 12/08/2024 How many drinks containing a lcohol do you have on a typical day when you are drinking? 0 12/08/2024 How often do you have five or more drinks on one occasion? 0 12/08/2024 Financial Resource Strain Answer Date R ecorded Difficulty of Paying Living Expenses 3 09/08/2024 Difficulty of Paying Living Expenses Not on file 09/08/2024 Food Insecurity Answer Date Recorded Do you worry your food will run out before you are able to buy more? 1 09/20/2024 Transportation Needs Answer Date Record ed Does lack of transportation keep you from medica l appointments? 1 09/20/2024 Does lack of transportation keep you from work, meetings or getting things that you need? 1 09/20/2024 Housing Stability Answer Date Recorded What is your housing situation today? 1 09/20/2024 Interpersonal Safety Answer Date Record ed Are you being hit, kicked, p ushed or yelled at (see row info)? No 07/04/2023 Interpersonal Safety Abuse 12 - 18 Not on file 07/04/2023 Interpersonal Safety Ambulatory Vulnerability No t on file 07/04/2023 Utilities Answer Date Recorded Do you have trouble paying f or utilities (for example, heat, electricity, water, phone)? 1 09/20/2024 Sex and Gender Information Value Date Recorded Sex Assigned at Not on file Legal Sex Male 8:44 AM BELT BUILDER Gender Identity Not on file Sexual Orientation Not on file Occupation Industry Job Start Date Job End Date [employer] Not on file Not on file Not on file Obstetrics History Last Filed Vital Signs Vital Sign Reading Time Taken Comments Blood Pressure 110/70 01/05/2025 11:31 AM BELT BUILDER Pulse 68 01/05/2025 11:31 AM BELT BUILDER Temperature 36.7 C (98 F) 01/05/2025 11:31 AM BELT BUILDER Respiratory Rate 25 01/05/2025 11:31 AM BELT BUILDER Oxygen Saturation 92% 01/05/2025 11:31 AM BELT BUILDER RA Inhaled Oxygen Concentration - - Weight 99.1 kg (218 lb 6.4 oz) 01/03/2025 10:52 AM BELT BUILDER Height 195.6 cm (6' 5) 06/16/2024 7:05 AM CDT Body Mass Index 25.9 06/16/2024 7:05 AM CDT Plan of Treatment Upcoming Encounters Date Type Department Care Team (Late st Contact Info) Description 01/17/2025 4:30 AM BELT BUILDER Appointment [facility] [address] [place] [address] Octavia Bryson RN 01/24/2025 2:10 PM BELT BUILDER Office Visit [facility] [address] [place] [address] Padmini Dorindajanessa Campos DO [address] [place] [address] 02/07/2025 1:10 PM BELT BUILDER Office Visit [facility] [address] [address] [place] [address] [place], [place] [id number] 07/14/2025 9:30 AM CDT Telemedicine [facility] [address] [place] [address] [place] [phone] Neymar Brumfield MD [address] [place] [address] [place] [id number] Health Maintenance Due Date Last Done Comments Hepatitis B series for 19+ ( 2 of 3 - 19+ 3-dose series) 09/06/1991 08/09/1991 Colonoscopy through age 75 1998 BMI (ht and wt on same day) for age 18+ 12/09/2024 12/10/2023, 07/17/2023, 02/19/2023, Additional history exists Medicare Wellness for age 65+ 12/10/2024 12/10/2023 Depression screening for age 12+ 09/20/2025 09/20/2024, 12/12/2023, 12/12/2023, Additional history exists Lipids for age 45-75 02/23/2029 02/24/2024, 11/21/2023, 02/04/2023 Tetanus booster 02/04/2033 02/04/2023, 01/10/1971 Pneumococcal series for age 50+ Completed , 03/07/2021 Zoster (shingles) series for age 50+ Completed 01/17/2023, 11/08/2022 Hepatitis C screening for ag e 18-79 Completed 02/04/2023 AAA screening age 65-74 Completed 02/21/2023 RSV vaccine for adults or Completed 12/12/2023 Influenza Vaccine Completed 11/15/2024, , 01/15/2023 Medical Devices Implanted Type Area Plastic Mixer Device Identifier Shelf Expiration Date Model / Serial / Lot Perform 10 Deg Insert Ve Sz3/4 42 Mm +3 Implanted:Qty: 1 on 06/16/2024 by Hesham Clark MD at [facility] Right: Shoulder 02/01/2025 [id number] / [id number] / Description:Perform 10 Deg I nsert VE SZ3/4 42 mm +3 Baseplate Glenoid 29mm 15 Deg Perform+ Full Wedge - [id number] Implanted:Qty: 1 on 06/16/2024 by Hesham Clark MD at [facility] Right: Shoulder [employer] 04/06/2029 [id number] / [id number] / Stem Hum Sz 3 Plus Sht Perform - [id number] Implanted:Qty: 1 on 06/16/2024 by Hesham Clark MD at [facility] Right: Shoulder [employer] 12/30/2028 [id number] / [id number] / Glenoid 42mm Perform+ Rev - [id number] Implanted:Qty: 1 on 06/16/2024 by Hesham Clark MD at [facility] Right: Shoulder [employer] 12/18/2026 [id number] / [id number] / Screw Shoulder 22mm Perform+ Periph - [id number] Implanted:Qty: 1 on 06/16/2024 by Hesham Clark MD at [facility] Right: Shoulder [employer] [id number] / / Screw Shoulder 34mm Perform+ Periph - [id number] Implanted:Qty: 2 on 06/16/2024 by Hesham Clark MD at [facility] Right: Shoulder [employer] [id number] / / Post Shldr Glenoid 6.5x35mm Perform+ Rev - [id number] Implanted:Qty: 1 on 06/16/2024 by Hesham Clark MD at [facility] Right: Shoulder [employer] [id number] / / Procedures Procedure Name Priority Date/Time Associated Diagnosis Comments CBC WITH AUTO DIFFERENTIAL Routine 01/03/2025 12:00 PM BELT BUILDER Recurrent falls Generalized weakness VITAMIN B1 (THIAMINE) BLOOD Routine 01/03/2025 12:00 PM BELT BUILDER Recurrent falls Generalized weakness MAGNESIUM Routine 01/03/2025 12:00 PM BELT BUILDER Recurrent falls Generalized weakness HEMOGLOBIN A1C MONITORING (POCT) Routine 01/03/2025 12:00 PM BELT BUILDER Type 2 diabetes mellitus with diabetic 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, 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) BASIC METABOLIC PANEL Routine 01/03/2025 12:00 PM BELT BUILDER Recurrent falls Generalized weakness CBC WITH AUTO DIFFERENTIAL Routine 01/03/2025 12:00 PM BELT BUILDER Recurrent falls Generalized weakness CK TOTAL Routine 01/03/2025 12:00 PM BELT BUILDER Recurrent falls Generalized weakness RA QUANTITATIVE Routine 01/03/2025 12:00 PM BELT BUILDER Recurrent falls Generalized weakness ANTINUCLEAR ANTIBODY BY IFA Routine 01/03/2025 12:00 PM BELT BUILDER Recurrent falls Generalized weakness C-REACTIVE PROTEIN Routine 01/03/2025 12 :00 PM BELT BUILDER Recurrent falls Generalized weakness SEDIMENTATION RATE Routine 01/03/2025 12 :00 PM BELT BUILDER Recurrent falls Generalized weakness TESTOSTERONE,TOTAL Routine 01/03/2025 12 :00 PM BELT BUILDER Low testosterone in male SCAN-OPERATIVE/PROCED URE REPORT 12/09/2024 12:[address] CHEST WO Routine 12/06/2024 10:40 AM CDT Malignant neoplasm of lower lobe, left bronchus or lung (HC) LIPID PANEL W REFLEX MEASURED LDL Routine 02/24/2024 10:39 AM BELT BUILDER Lipid screening US ABD AORTA SCREENING Routine 02/21/2023 10:11 AM BELT BUILDER Screening for AAA (aortic abdominal aneurysm) ANTI HCV Routine 02/04/2023 11:56 AM BELT BUILDER Need for hepatitis C screening test from Last 3 Months or Most Recently Relevant to Health Maintenance Results * (ABNORMAL) SEDIMENTATION RATE (01/03/2025 12:00 PM BELT BUILDER) SED RATE BY MODIFIED WESTERGREN 41(H) < OR = 20 mm/h 01/04/2025 4:30 AM BELT BUILDER [facility] Blood BLOOD SPECIMEN / Unknown [facility] / Unknown 01/03/2025 12:00 PM BELT BUILDER 01/03/2025 12:00 PM BELT BUILDER us Dorinda Washington DO HEMATOLOGY Final Result [facility] [address] [address], * ANTINUCLEAR ANTIBODY BY IFA (01/03/2025 12:00 PM BELT BUILDER) AG SCREEN, IFA NEGATIVE NEGATIVE 7:00 AM BELT BUILDER [facility] Comment: AG IFA is a first line screen for detecting the presence of up to approximately 150 autoantibodies in various autoimmune diseases. A negative AG IFA result suggests an AG-associated autoimmune disease is not present at this time, but is not definitive. If there is high clinical suspicion for Sjogren's syndrome, testing for anti-SS-A/Ro antibody should be considered. Anti-Genesis-1 antibody should be considered for clinically suspected inflammatory myopathies. AC-0: Negative International Consensus on AG Patterns (https://doi.org/10.1515/edee-6706-4973) For additional information, please refer to http://education.[employer]/faq/TZI137 (This link is being provided for informational/ educational purposes only.) Blood BLOOD SPECIMEN / Unknown [facility] / Unknown 01/03/2025 12:00 PM BELT BUILDER 01/03/2025 12:00 PM BELT BUILDER [employer] [facility] CHEMISTRY Final Result Performing Organization Address [facility]/ZIP Co de Phone Number [facility] [address] [address], [place] [phone] * (ABNORMAL) VITAMIN B1 (THIAMINE) BLOOD (01/03/2025 12:00 PM BELT BUILDER) [facility] VITAMIN B1 (THIAMINE), BLOOD, LC/MS/MS 222(H) 78 - 185 nmol/L 01/07/2025 10:16 AM BELT BUILDER [facility] Comment: (Note) Vitamin supplementation within 24 hours prior to blood draw may affect the accuracy of the results. This test was developed and its analytical performance characteristics have been determined by [employer]. It has not been cleared or approved by FDA. This assay has been validated pursuant to the CLIA regulations and is used for clinical purposes. [facility] [address] [address],[address] [facility] [id number] Spike Sue MD, PhD Blood BLOOD SPECIMEN / Unknown [facility] / Unknown 01/03/2025 12:00 PM BELT BUILDER 01/03/2025 12:00 PM BELT BUILDER [employer] DO SEND OUTS Final Result Performing Organization Address [facility]/ZIP Co de Phone Number [facility] [address] [address], [place] [phone] * (ABNORMAL) CBC WITH AUTO DIFFERENTIAL (01/03/2025 12:00 PM BELT BUILDER) [facility] WHITE BLOOD CELL COUNT 11.9(H) 3.8 - 10.8 Thousand/ uL 01/04/2025 3:38 AM BELT BUILDER [facility] RED BLOOD CELL COUNT 3.80(L) 4.20 - 5.80 Million/u L 01/04/2025 3:38 AM BELT BUILDER [facility] HEMOGLOBIN 11.9(L) 13.2 - 17.1 g/dL 01/04/2025 3:38 AM BELT BUILDER [facility] HEMATOCRIT 35.3(L) 38.5 - 50.0 % 01/04/2025 3:38 AM BELT BUILDER [facility] MCV 92.9 80.0 - 100.0 fL 01/04/2025 3:38 AM BELT BUILDER [facility] MCH 31.3 27.0 - 33.0 pg 01/04/2025 3:38 AM BELT BUILDER [facility] MCHC 33.7 32.0 - 36.0 g/dL 01/04/2025 3:38 AM BELT BUILDER [facility] Comment: For adults, a slight decrease in the calculated MCHC value (in the range of 30 to 32 g/dL) is most likely not clinically significant; however, it should be interpreted with caution in correlation with other red cell parameters and the patient's clinical condition. RDW 11.6 11.0 - 15.0 % 01/04/2025 3:38 AM BELT BUILDER [facility] PLATELET COUNT 581(H) 140 - 400 Thousand/ uL 01/04/2025 3:38 AM BELT BUILDER [facility] MPV 11.0 7.5 - 12.5 fL 01/04/2025 3:38 AM BELT BUILDER [facility] NEUTROPHILS 83.3 % 01/04/2025 3:38 AM BELT BUILDER [facility] LYMPHOCYTES 8.0 % 01/04/2025 3:38 AM BELT BUILDER [facility] MONOCYTES 7.2 % 01/04/2025 3:38 AM BELT BUILDER [facility] EOSINOPHILS 1.0 % 01/04/2025 3:38 AM BELT BUILDER [facility] BASOPHILS 0.5 % 01/04/2025 3:38 AM BELT BUILDER [facility] ABSOLUTE NEUTROPHILS 9913(H) 1500 - 7800 cells/uL 01/04/2025 3:38 AM BELT BUILDER [facility] ABSOLUTE LYMPHOCYTES 952 850 - 3900 cells/uL 01/04/2025 3:38 AM BELT BUILDER [facility] ABSOLUTE MONOCYTES 857 200 - 950 cells/uL 01/04/2025 3:38 AM BELT BUILDER [facility] ABSOLUTE EOSINOPHILS 119 15 - 500 cells/uL 01/04/2025 3:38 AM BELT BUILDER [facility] ABSOLUTE BASOPHILS 60 0 - 200 cells/uL 01/04/2025 3:38 AM BELT BUILDER [facility] Blood BLOOD SPECIMEN / Unknown [facility] / Unknown 01/03/2025 12:00 PM BELT BUILDER 01/03/2025 12:00 PM BELT BUILDER [employer] DO HEMATOLOGY Final Result Performing Organization Address [facility] de Phone Number [facility] [address] [place] [address], [place] [phone] * (ABNORMAL) RA QUANTITATIVE (01/03/2025 12:00 PM BELT BUILDER) RHEUMATOID FACTOR 26(H) <14 IU/mL 01/04/2025 2:33 PM BELT [facility] Blood BLOOD SPECIMEN / Unknown [facility] / Unknown 01/03/2025 12:00 PM BELT BUILDER 01/03/2025 12:00 PM BELT BUILDER The Grounds Keeper DO SEND OUTS Final Result Performing Organization Address [facility] de Phone Number [facility] [address] [place] [address], [place] [phone] * (ABNORMAL) C-REACTIVE PROTEIN (01/03/2025 12:00 PM BELT BUILDER) Pathologist [facility] C-REACTIVE PROTEIN (MG/L) 29.9(H) <8.0 mg/L 01/04/2025 2:33 PM BELT BUILDER [facility] Blood BLOOD SPECIMEN / Unknown [facility] / Unknown 01/03/2025 12:00 PM BELT BUILDER 01/03/2025 12:00 PM BELT BUILDER The Grounds Keeper DO CHEMISTRY Final Result Performing Organization Address [facility] de Phone Number [facility] [address] [place] [address], [place] [phone] * (ABNORMAL) TESTOSTERONE,TOTAL (01/03/2025 12:00 PM BELT BUILDER) Pathologist [facility] TESTOSTERONE, TOTAL, MS 221(L) 250 - 1100 ng/dL 01/06/2025 2:56 PM BELT BUILDER [facility] Comment: Men with clinically significant hypogonadal symptoms and testosterone values repeatedly in the range of the 200-300 ng/dL or less, may benefit from testosterone treatment after adequate risk and benefits counseling. For additional information, please refer to https://education.[employer]/faq/TotalTestosteroneLCMSMS (This link is being provided for informational/educational purposes only.) (Note) This test was developed and its analytical performance characteristics have been determined by [employer]. It has not been cleared or approved by the FDA. This assay has been validated pursuant to the CLIA regulations and is used for clinical purposes. [facility] med [facility] [address] [address],[address] [place] [address] Spike Sue MD, PhD Blood BLOOD SPECIMEN / Unknown [facility] / Unknown 01/03/2025 12:00 PM BELT BUILDER 01/03/2025 12:00 PM BELT BUILDER [employer] CHEMISTRY Final Result Performing Organization Address City/[facility]/ZIP Co de Phone Number [facility] [address] [address], [place] [phone] * MAGNESIUM (01/03/2025 12:00 PM BELT BUILDER) MAGNESIUM 1.9 1.5 - 2.5 mg/dL 01/04/2025 4:02 AM BELT BUILDER [facility] Blood BLOOD SPECIMEN / Unknown [facility] / Unknown 01/03/2025 12:00 PM BELT BUILDER 01/03/2025 12:00 PM BELT BUILDER [employer] CHEMISTRY Final Result [facility] [address] [address], [place] [phone] * (ABNORMAL) HEMOGLOBIN A1C MONITORING (POCT) (01/03/2025 12:00 PM BELT BUILDER) [facility] POC HEMOGLOBIN A1C 9.7(H) <6.0 % OF TOTAL HGB 01/03/2025 12:12 PM BELT BUILDER [facility] Comment: Any point of care results exhibiting inconsistency with the patient's clinical status should be repeated using a different testing method. Blood BLOOD SPECIMEN / Unknown [facility] / Unknown 01/03/2025 12:00 PM BELT BUILDER 01/03/2025 12:00 PM BELT BUILDER The Grounds Keeper DO CHEMISTRY Final Result Performing Organization Address [facility]/ZIP Co de Phone Number [facility] [address] [address], [place] [phone] [place] [address], [place] [phone] * CK TOTAL (01/03/2025 12:00 PM BELT BUILDER) [facility] CREATINE KINASE, TOTAL 40 19 - 278 U/L 01/04/2025 4:02 AM BELT BUILDER [facility] Blood BLOOD SPECIMEN / Unknown [facility] / Unknown 01/03/2025 12:00 PM BELT BUILDER 01/03/2025 12:00 PM BELT BUILDER The Grounds Keeper DO CHEMISTRY Final Result Performing Organization Address City/[facility]/ZIP Co de Phone Number [facility] [address] [address], [place] [phone] * (ABNORMAL) BASIC METABOLIC PANEL (01/03/2025 12:00 PM BELT BUILDER) [facility] SODIUM 138 135 - 146 mmol/L 01/04/2025 4:02 AM BELT BUILDER [facility] POTASSIUM 5.1 3.5 - 5.3 mmol/L 01/04/2025 4:02 AM BELT BUILDER [facility] CARBON DIOXIDE 22 20 - 32 mmol/L 01/04/2025 4:02 AM BELT BUILDER [facility] GLUCOSE 223(H) 65 - 99 mg/dL 01/04/2025 4:02 AM BELT BUILDER [facility] Comment: Fasting reference interval For someone without known diabetes, a glucose value >125 mg/dL indicates that they may have diabetes and this should be confirmed with a follow-up test. CALCIUM 9.0 8.6 - 10.3 mg/dL 01/04/2025 4:02 AM BELT BUILDER [facility] CREATININE 1.77(H) 0.70 - 1.28 mg/dL 01/04/2025 4:02 AM BELT BUILDER [facility] BUN/CREATININE RATIO 20 6 - 22 (calc) 01/04/2025 4:02 AM BELT BUILDER [facility] EGFR 41(L) > OR = 60 mL/min/1. 73m2 01/04/2025 4:02 AM BELT BUILDER [facility] UREA NITROGEN (BUN) 35(H) 7 - 25 mg/dL 01/04/2025 4:02 AM BELT BUILDER [facility] ELECTROLYTE BALANCE 10 7 - 17 mmol/L (calc) 01/04/2025 4:02 AM BELT BUILDER [facility] CHLORIDE 106 98 - 110 mmol/L 01/04/2025 4:02 AM BELT BUILDER [facility] Blood BLOOD SPECIMEN / Unknown [facility] / Unknown 01/03/2025 12:00 PM BELT BUILDER 01/03/2025 12:00 PM BELT BUILDER Dorinda Washington DO CHEMISTRY Final Result [facility] [address] [place] [address], * SCAN-OPERATIVE/PROCEDURE REPORT (12/09/2024 12:00 AM CDT) us Scanner OTHER Final Result * CT CHEST WO (12/06/2024 10:40 AM CDT) Anatomical Region Laterality Modality CHEST, THORAX, HEART Computed To mography 12/07/2024 9:28 AM CDT Impressions 12/07/2024 9:28 AM CDT 1. Mild increased size of known case of malignant mass in the left lower lobe, encasing the segmental bronchi. 2. Mild thickening of the posterior most left oblique fissure and solid nodule in the left lower lobe, unchanged. 3. No new or concerning nodule. 4. Paraseptal emphysema. Please note that all CT scans at this facility use dose modulation, iterative reconstruction, and/or weight-based dosing when appropriate to reduce radiation dose to as low as reasonably achievable. Dictated by Anika Kate MD @ 12/07/2024 9:28:52 AM (Electronically Signed) Narrative 12/07/2024 9:28 AM CDT For Patients: As a result of the Cures Act, medical imaging exams and procedure reports are released immediately into your electronic medical record. You may view this report before your referring provider. If you have questions, please contact your health care provider. INDICATION: Malignant neoplasm lobe bronchus TECHNIQUE: CT chest without contrast. 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 Mild increase in the size of solid mass within the left lower lobe, it measures 4.0 x 5.6 x 3.2 cm, previously 3.3 x 5.8 x 2.8 cm. Encasement and narrowing of the left earlobe segmental bronchi are unchanged. There is adjacent linear bandlike opacities in the left lower lobe, similar to previous exam. Nodule a solid in the left lateral lower lobe measuring 10 x 10 millimeter, previously 12 x 8 millimeter as seen on series number 9/113. No effusion or pneumothorax. Mild thickening of the left posterior-most oblique fissure is similar. Unchanged few calcified nodules In bilateral lung hauser. Heart and vasculature: Heart size is normal. Thoracic aorta and pulmonary artery are normal in caliber. Coronary artery calcification. Mild aortic atherosclerosis. Lymph nodes/mediastinum: No mediastinal, hilar, or axillary adenopathy. Chest wall: No masses. Upper abdomen: No acute abnormality in the upper abdomen. Cholelithiasis. Nonobstructing left nephrolithiasis. Right upper pole renal cyst. Bones: Multilevel degenerative changes of the spine. Right shoulder arthroplasty. Procedure Note Anika Kate MD - 12/07/2024 For Patients: As a result of the Cures Act, medical imagingexams and procedure reports are released immediately into your electronicmedical record. You may view this report before your referring provider.If you have questions, please contact your health care provider. INDICATION: Malignant neoplasm lobe bronchus TECHNIQUE: CT chest without contrast. COMPARISON: CT chest with IV contrast August 2024 FINDINGS: Lungs and pleura: Known case of squamous cell carcinoma of left lowerlobe, status post radiation. Mild increase in the size of solid mass within the left lower lobe, itmeasures 4.0 x 5.6 x 3.2 cm, previously 3.3 x 5.8 x 2.8 cm. Encasement and narrowing of the left earlobe segmental bronchi areunchanged. There is adjacent linear bandlike opacities in the left lowerlobe, similar to previous exam. Nodule a solid in the left lateral lowerlobe measuring 10 x 10 millimeter, previously 12 x 8 millimeter as seen onseries number 9/113. No effusion or pneumothorax. Mild thickening of the left posterior-most oblique fissure is similar. Unchanged few calcified nodules In bilateral lung hauser. Heart and vasculature: Heart size is normal. Thoracic aorta and pulmonaryartery are normal in caliber. Coronary artery calcification. Mild aorticatherosclerosis. Lymph nodes/mediastinum: No mediastinal, hilar, or axillary adenopathy. Chest wall: No masses. Upper abdomen: No acute abnormality in the upper abdomen. Cholelithiasis.Nonobstructing left nephrolithiasis. Right upper pole renal cyst. Bones: Multilevel degenerative changes of the spine. Right shoulderarthroplasty. IMPRESSION: 1. Mild increased size of known case of malignant mass in the left lowerlobe, encasing the segmental bronchi. 2. Mild thickening of the posterior most left oblique fissure and solidnodule in the left lower lobe, unchanged. 3. No new or concerning nodule. 4. Paraseptal emphysema. Please note that all CT scans at this facility use dose modulation,iterative reconstruction, and/or weight-based dosing when appropriate toreduce radiation dose to as low as reasonably achievable. Dictated by Anika Kate MD @ 12/07/2024 9:28:52 AM (Electronically Signed) Bonita Glover SUPERVISOR BLUEPRINTING AND PHOTOCOPY, BUCKLE COVERER CT Fin al Result * LIPID PANEL W REFLEX MEASURED LDL (02/24/2024 10:39 AM BELT BUILDER) CHOLESTEROL, TOTAL 97 <200 mg/dL [facility] HDL CHOLESTEROL 48 > OR = 40 mg/dL [facility] TRIGLYCERIDES 110 <150 mg/dL [facility] LDL-CHOLESTEROL 29 mg/dL (calc) [facility] Comment: Reference range: <100 Desirable range <100 mg/dL for primary prevention; <70 mg/dL for patients with CHD or diabetic patients with > or = 2 CHD risk factors. LDL-C is now calculated using the Matty-Nikolay calculation, which is a validated novel method providing better accuracy than the Friedewald equation in the estimation of LDL-C. Matty SS et al. SEBASTIAN. 2013;310(19): 1248-3306 (http://education.[employer]/faq/LXM857) CHOL/HDLC RATIO 2.0 <5.0 (calc) [facility] NON HDL CHOLESTEROL 49 <130 mg/dL (calc) [facility] Comment: For patients with diabetes plus 1 major ASCVD risk factor, treating to a non-HDL-C goal of <100 mg/dL (LDL-C of <70 mg/dL) is considered a therapeutic option. Blood BLOOD SPECIMEN / Unknown 02/24/2024 10:39 AM BELT BUILDER 02/24/2024 10:42 AM BELT BUILDER us Dorinda Washington DO CHEMISTRY Final Result [facility] [address] [place] [address], [place] [phone] [facility] [address] [place] [address] * US ABD AORTA SCREENING [[id number]] (02/21/2023 10:11 AM BELT BUILDER) Anatomical Region Laterality Modality Abdomen, AORTA Ultrasound 02/21/2023 2:18 PM BELT BUILDER Narrative 02/21/2023 2:18 PM BELT BUILDER For Patients: As a result of the Century Cures Act, medical imaging exams and procedure reports are released immediately into your electronic medical record. You may view this report before your referring provider. If you have questions, please contact your health [...] @ Feb 21 2023 2:18PM (Electronically Signed) Procedure Note Abel Valverde MD - 02/21/2023 [...] @ Feb 21 2023 2:18PM (Electronically Signed) us Dorinda Beth Padmini DO US Final Result * ANTI HCV (02/04/2023 11:56 AM BELT BUILDER) HEPATITIS C ANTIBODY Non-Reacti ve Non-React nerissa 02/04/2023 9:39 PM BELT BUILDER [facility] Comment:Please note, per www .CDC.gov: If a patient is known to be at high risk of HCV infection, or is symptomatic, and the physician's suspicion of HCV infection is high, HCV RNA testing is often employed and is of diagnostic value, even after an initial negative anti-HCV test result. Blood BLOOD SPECIMEN / Unknown Venipuncture / Unknown 02/04/2023 11:56 AM BELT BUILDER 02/04/2023 11:58 AM BELT BUILDER us Dorinda Washington DO SEND OUTS Final Result [facility] [address] [place] [address], [place] from Last 3 Months or Most Recently Relevant to Health Maintenance Insurance MEDICARE PART A HB ONLY MEDICARE [place] ONLY MEDICARE PART B HB ONLY [facility] [place] [address] [address] [place] [address] HC MEDICARE PPS Advance Directives * Full Code (Latest Code Status on File) Date Activated Date Inactivated Comments 01/05/2025 4:35 PM * Full Code Date Activated Date Inactivated Comments 06/16/2024 10:00 AM 06/16/2024 4:44 PM Question Answer Comments Code Status Discussion: Reviewed Preferences * Full Code Date Activated Date Inactivated Comments 06/16/2024 6:02 AM 06/16/2024 10:00 AM Question Answer Comments Code Status Discussion: Reviewed Preferences * Full Code Date Activated Date Inactivated Comments 11/20/2023 8:40 PM 11/22/2023 4:33 PM Discussed wi th patient. He discussed with his . He and his want him to be full code here. Question Answer Comments Code Status Discussion: Reviewed Preferences * Full Code Date Activated Date Inactivated Comments 11/20/2023 8:31 PM 11/20/2023 8:40 PM Question Answer Comments Code Status Discussion: Unable to Assess Preferences, Provider to review later Care Teams Student Success Counselor Relationship Specialty Start Date End Date Dorinda Washington DO [address] [place] [address] PCP - General Family Practice 02/13/24 Faith Donovan, RN [address] [place] [address] Stock House Worker 02/11/23 Kennedi Perry, COLIN, BSN, OCN [address] [facility] [address] [place] [address] Nurse Navigator - Oncology Registered Nurse 02/19/23 Hina Campbell RN [address] [facility] [place] [address] Nurse Navigator - Oncology Registered Nurse 06/06/23 Han Bradley MD [address] [place] [address] Physical Medicine and Rehabilitation 07/17/[address] [place] [address] World Geography Teacher 09/13/24 02/22/25 Feliciano Soria MD [address] [place] [address] [place] [address] Nephrology 12/27/24 [place] 12/27/24 [facility] [address] [place] [address] 01/04/25
--- OUTSIDE RECORDS SUMMARY | 2025-01-16 09:38 | XMS_ITS | Patient Health Record ---
Author Organization [facility] Address [address] [place], [place] [id number] Care Team Providers Care Radar Tester Name Role Phone Maria E Valdez Primary Care Provider Allergies No Known Allergies Reason For Referral No Information Medications Medication SIG (Take, Route, Frequency, Duration) Notes Start Date End Date Status One Touch Delica Lancets as directed twi ce daily; Duration: 30 days 12/08/2019 Active Gabapentin 300 MG 1 capsule Orally Once a day 02/25 Active glipiZIDE ER 10 MG TAKE 2 TABLETS BY MO UTH EVERY MORNING WITH BREAKFAST Orally Once a day; Duration: 90 days Active Accu-Chek SmartView - TEST TWICE A DAY; Duration: 50 Active metFORMIN HCl 1000 MG TAKE 1 TABLET BY M OUTH TWICE DAILY WITH MEALS Orally 2 x day; Duration: 90 days Active cloNIDine HCl 0.1 MG 1 tablet Orally 2 x day; Duration: 30 day(s) 06/23/2020 Active Lisinopril 30 MG 1 tablet Orally Once a day; Duration: 90 days 06/06/2020 Active Januvia 25 MG TAKE 1 TABLET BY PAU EVERY DAY; Duration: 90 Active Social History Tobacco Use: Social History Observation Description Date Details (start date - stop date) Current Smoker NA - NA Smoking Question Answer Notes Status: Current Smoker Tobacco Intervention: Question Answer Notes Patient counseled on the dangers of tobacco use and urged to quit: 06/06/2020 Problems Problem Type SNOMED Code ICD Code Onset Dates Problem Status W/U Status Risk Notes Problem Tobacco abuse (2612003320) Tobacco abuse (Z72.0) Active confirmed Problem Low back pain (125462223) Low back pain (M54.5) Active confirmed Problem Essential hypertension (20205615) Essential hypertension (I10) Active confirmed Problem Diabetes mellitus type 2 in nonobese (493782694) Diabetes mellitus type 2 in nonobese (E11.9) Active confirmed Problem FH: Stroke (204994553) FH: stroke (Z82.3) Active confirmed Problem Polyneuropathy due to type 2 diabetes mellitus (674518694) Diabetic 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 associated with type 2 diabetes mellitus (E11.42) Active confirmed Plan Of Treatment Pending Test Test Name Order Date EKG 10/07/2018 URINALYSIS - UA IN HOUSE 05/18/2018 Insurance Providers Payer Name Payer Address Payer Phone Subscriber Number Group Number Insured Name Patient Relationship to Insured Coverage Start Date Coverage End Date [employer] and Blue [facility] [address] [address] [place] [address] [id number] [id number] Chato Olivo Self - patient is the insured Medical (General) History Medical History History ICD Code Diabetes Hypertension Tobacco abuse Z72.0 Tobacco abuse Z82.3 FH: stroke E11.42 Diabetic 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 associated with type 2 diabetes mellitus M54.5 Low back pain Surgical History Surgery Date(Month/Year) Right total hip replacement 10/2019
--- OUTSIDE RECORDS SUMMARY | 2025-01-16 10:01 | XMS_ITS | Clinical Summary ---
Author Organization [facility] Address [address] [address] Phone Care Team Providers Care Rush Seater Name Role Phone Unavailable Primary Care Provider Unavailabl e Allergies No known active allergies Medications amLODIPine (Norvasc) 10 MG tablet 3 Active lisinopril (Prinivil, Zestril) 40 MG tablet TAKE ONE TABLET BY MOUTH EVERY DAY FOR HYPERTENSION 3 Active meclizine (Antivert) 25 MG tablet TAKE 1 TABLET (25 MG) BY MOUTH 3 TIMES DAILY NEEDED FOR DIZZINESS 3 Active HYDROcodone-ac etaminophen ([employer]) 5-325 MG oral tablet Take 0.5-1 Tablets by mouth one time a day as needed for Pain. Limit acetaminophen to 4000 mg per day from all sources. Active aspirin 81 MG chewable tablet Chew and swallow 1 Tablet one time a day. Take with food. 3 Active atorvaSTATin (Lipitor) 80 MG tablet Take 1 Tablet by mouth at bedtime. 3 Active metFORMIN (Glucophage) 1000 MG tablet Take 1 Tablet by mouth two times a day with meals. Take with food. 3 Active ticagrelor (Brilinta) 90 MG tablet Take 1 Tablet by mouth two times a day. 60 Each 1 3 Active Active Problems Problem Noted Date Diagnosed Date Smoking 08/03/2022 Stroke 08/03/2022 Thrombolytic medication administered within last 5 days 08/03/2022 Essential hypertension 12/25/2020 3 Diabetes mellitus type 2 in nonobese 03/04/2012 08/03/2022 Overview (08/03/2022): Diagnosed 01/2012 a system change updated this record. This will not affect patient care or billing. This comment can be deleted. Foot ulcer, left 03/04/2012 08/03/2022 Immunizations Immunization Administration Dates Next Due Hepatitis B NOS 08/09/1991 TD >7yrs With Preservative 01/10/1971 Surgical History Surgery Date Site/Laterality Comments PERIPHERAL VASCULAR PROCEDURE 08/09/2022 N/A Procedure: PV DIAGNOSTIC CEREBRAL ANGIOGRAM W/POSSIBLE INTERVENTION; Surgeon: Durga Fernandez MBBS; Location: [facility] Social History Tobacco [...] at Not on file Legal Sex Male 11:20 AM CDT Gender Identity Not on file Sexual Orientation Not on file Last Filed Vital Signs Vital Sign Reading Time Taken Comments Blood Pressure 135/82 08/14/2022 9:54 AM CDT Pulse 98 08/14/2022 9:54 AM CDT Temperature 36.5 C (97.7 F) 08/14/2022 9:54 AM CDT Respiratory Rate 16 08/14/2022 9:54 AM CDT [...] Cancer Screening 1955 FIT/FOBT 1955 Sigmoidoscopy 1955 DIABETES MICROALBUMIN Q1 YEAR (Standing Order) 08/05/1971 DIABETIC EYE EXAM 08/05/1971 PERTUSSIS (Standing Order) 1972 Pneumococcal Vaccine: 50+ yrs (Standing Order) (1 of 2 - PCV) 1972 TETANUS (Standing Order) 01/10/1981 01/10/1971 Hepatitis B Vaccine (Standing Order) (2 of 3 - 19+ 3-dose series) 09/06/1991 08/09/1991 Shingrix (Zoster recombinant) vaccine (Standing Order) (1 of 2) 08/05/2003 DIABETES HGB A1C Q6 MONTHS (Standing Order) 02/03/2023 2022, 07/12/2020 DIABETES SERUM CREATININE Q1 YEAR (Standing Order) 10/04/2023 10/03/2022, 09/18/2022, 09/17/2022, Additional history exists COVID-19 Single Dose 10/25/2024 Influenza Vaccine Seasonal (Standing Order) (#1) 2024 DIABETES LIPID PROFILE Q5 YEARS (Standing Order) 08/05/2027 2022, 2022 RSV Vaccination (60+ yrs) (Abrysvo/Arexvy) (1 - 1-dose 75+ series) 2028 HPV Vaccine (Standing Order) Aged Out No longer eligible based on patient's age to complete this topic Procedures Procedure Name Priority Date/Time Associated Diagnosis Comments BASIC METABOLIC PANEL Routine 08/05/2022 3:59 AM CDT HEMOGLOBIN A1C Routine 2022 3:59 AM CDT LIPID PROFILE Routine 2022 3:59 AM CDT from Last 3 Months or Most Recently Relevant to Health Maintenance Results * (ABNORMAL) BASIC METABOLIC PANEL (08/05/2022 3:59 AM CDT) [facility] Signature Sodium 140 134 - 143 mEq/L 08/05/2022 4:22 AM CDT [facility] Potassium 4.4 3.4 - 5.1 mEq/L 08/05/2022 4:22 AM CDT [facility] Chloride 112(H) 99 - 110 mEq/L 08/05/2022 4:22 AM CDT [facility] Carbon Dioxide 21 19 - 29 mEq/L 08/05/2022 4:22 AM CDT [facility] Anion Gap 7.0 3.0 - 15.0 mEq/L 08/05/2022 4:22 AM CDT [facility] Blood Urea Nitrogen 28(H) 5 - 24 mg/dL 08/05/2022 4:22 AM CDT [facility] Creatinine 1.74(H) 0.70 - 1.20 mg/dL 08/05/2022 4:22 AM CDT [facility] Glomerular Filtration Rate 42(L) >60 mL/min/1. 73 m*2 08/05/2022 4:22 AM CDT [facility] Comment:Risk of cardiovascul ar disease increases when GFR is abnormal; persistently reduced GFR values are a specific indication of CKD. This calculation uses CKD- EPI 2020 equation without adjustment for race; it has not been validated in women. Calcium 9.3 8.4 - 10.5 mg/dL 08/05/2022 4:22 AM CDT [facility] Glucose 203(H) 70 - 99 mg/dL 08/05/2022 4:22 AM CDT [facility] Blood BLOOD SPECIMEN / Unknown Venipuncture / Unknown 08/05/2022 3:59 AM CDT 08/05/2022 4:02 AM CDT Narrative [facility] - 08/05/2022 4:22 AM CDT Current ADA criteria for Glucose: Normal: 70-99 mg/dL Impaired Fasting Glucose: 100-125 mg/dL Diabetes Mellitus: at or above 126 mg/dL The diagnosis of diabetes must be confirmed on a subsequent day by measuring Fasting Plasma Glucose, 2-hr PG or random plasma glucose (if symptoms are present). us Wes Miller MD EC CHEMISTRY ORDERABLES F inal Result [facility] [address] [place] [address], [facility] * (ABNORMAL) HEMOGLOBIN A1C (2022 3:59 AM [...] 2022 4:23 AM CDT HGA1C Reference Ranges >= 6.5 Diabetes* 5.7-6.4 Impaired glucose tolerance <5.7 Normal *In the absence of unequivocal hyperglycemia, results should be confirmed by repeat testing for the diagnosis of diabetes. [place] [employer] 2018 us Herman Snow DO CHEMISTRY ORDERABLES AB N Final Result Performing Organization Address City/State/[facility] Co de Phone Number [facility] [address] [place], [place] [address] * (ABNORMAL) LIPID PANEL (2022 3:59 AM CDT) Cholesterol 186 0 - 200 mg/dL 2022 [...] or = 190 mg/dL Herman Snow DO CHEMISTRY ORDERABLES AB N Final Result [facility] [address] [place] [address] from Last 3 Months or Most Recently Relevant to Health Maintenance Insurance [facility] MEDIC[facility] PART A ONLY Advance Directives For more information, please contact: [phone] * Full Code (Latest Code Status on File) Date Activated Date Inactivated Comments 08/03/2022 4:23 PM 08/14/2022 3:22 PM * Full Code/Unaddressed Date Activated Date Inactivated Comments 08/03/2022 1:07 PM 08/03/2022 4:23 PM
--- OUTSIDE RECORDS SUMMARY | 2025-01-16 10:01 | XMS_ITS ---
Author Name Interface, [id number] lity Address [address] [place] [address] [address] [place] [address] [facility] Address [address] [facility] [address] [place] [address] Allergies and Adverse Reactions Medication/Group Name Reaction [...] Oral 5 mg-325 mg prn active 07/13 Amlodipin e Oral orally 10.0 mg daily active 07/13 Diclofena c Topical Gel 1 % active 07/13 Allopurin ol Oral 50 mg daily active 07/13 [place]-3 Fatty Acids Oral daily active Problems Diagnosis [...] schedule at his convenience. Ian Juárez MD [facility] Ian Juárez MD Copy to: Electronically signed by Ian Juárez MD 07/16/2023 09:46 CDT
--- OUTSIDE RECORDS SUMMARY | 2025-01-16 10:01 | XMS_ITS | CCD ---
Author Name Interface, [id number] lity Address [address] [place] [address] [address] [address] Organization [facility] Address [address] [facility] [address] [place] [address] Care Team Providers Care Mill Hand Name Role Phone Ian Juárez MD Unavailable [...] ER Tab 20 mg daily active 07/13 [place]-3 Fatty Acids Oral daily active 07/13 Aspirin Oral orally 81.0 mg daily active 07/13 Atorvasta tin Oral orally 80.0 mg daily active Problems Diagnosis Status Date of Diagnosis Resolution Date Non-small cell lung cancer (disorder) Active Social History Date Name Value 07/14/2023 Sex Male
--- OUTSIDE RECORDS SUMMARY | 2025-01-16 10:01 | XMS_ITS ---
Author Name Interface, [id number] lity Address [address] [place] [address] [address] [place] [address] [facility] Address [address] [facility] [address] [place] [address] Allergies and Adverse Reactions Medication/Group Name Reaction [...] ol Oral 50 mg daily active 07/13 [place]-3 Fatty Acids Oral daily active Problems Diagnosis [...] schedule at his convenience. Ian Juárez MD [facility] Ian Juárez MD Copy to: Electronically signed by Ian Juárez MD 07/16/2023 09:46 CDT
--- OUTSIDE RECORDS SUMMARY | 2025-01-16 10:01 | XMS_ITS | CCD ---
Author Name Interface, [id number] lity Address [address] [place] [address] [address] [address] Organization [facility] Address [address] [facility] [address] [place] [address] Care Team Providers Care Certified Nursing Assistant Instructor Name Role Phone Ian Jáurez MD Unavailable Unavailable Allergies and Adverse Reactions [...] ER Tab 20 mg daily active 07/13 [place]-3 Fatty Acids Oral daily active 07/13 Aspirin Oral orally 81.0 mg daily active 07/13 Atorvasta tin Oral orally 80.0 mg daily active Problems Diagnosis Status Date of Diagnosis Resolution Date Non-small cell lung cancer (disorder) Active Social History Date Name Value 07/14/2023 Sex Male
[2025-01-16 10:15] LABS: Hematocrit* 30.9 % (37.0-53.0); Hemoglobin* 10.2 gm/dL (13.5-17.5); Immature Granulocytes Pct Auto 0.5 %; Mean Corpuscular HGB Conc 33 gm/dL (32-36); Mean Corpuscular Hemoglobin 30 pg (26-34); Mean Corpuscular Volume 92 fL (80-100); RDW Coefficient of Variation % 13.0 % (11.5-15.5); Red Blood Count* 3.35 m/uL (4.30-5.90); White Blood Count* 16.54 K/uL (4.50-11.00)
[2025-01-16 10:33] LABS: Chloride* 107 mmol/L (96-114); Potassium* 3.7 mmol/L (3.6-5.1); Sodium* 132 mmol/L (135-149)
--- NOTE | 2025-01-16 10:33 | ED.WEAKNESS ---
HPI - Weakness General Date Seen: 01/16/25 Chief complaint: Weakness Stated complaint: pneumonia, weakness Time Seen by Provider: 01/16/25 09:40 Source: patient, family, EMS, RN notes reviewed and old records reviewed Mode of arrival: EMS Limitations: no limitations History of Present Illness HPI Narrative: Patient is a 69-year-old gentleman who presents here for evaluation of weakness, brought in by EMS, discharged yesterday from the hospital secondary to pneumonia, sepsis, overall debilitation, and weakness, tells me he was borderline for admission to transitional care, but declined this intervention. When I asked him why, he says that he thought he could do okay at home. He is here today by EMS in that he fell getting out of the car, and went straight to the couch, and has not been off the couch since he got home. His has not been able even get him up to go to the bathroom, and they called EMS and he is brought back here for assessment. He tells me he did not hurt himself, has no acute pain, just overall weakness and debility. Denies a fever chills, denies having an appetite but had been eating okay in the hospital. His hospital notes are reviewed in detail. 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, believe this is left lower lobe, history of left cerebral hemisphere stroke, right-sided weakness, MD Complaint: generalized weakness Onset (ago): day(s) Duration: constant Location: generalized Severity: severe Relieving factors: none Exacerbating factors: none Context: other Associated symptoms: denies other symptoms Related Data Home Medications ?Medication ?Instructions ?Recorded ?Confirmed allopurinol 100 mg tablet 100 mg PO DAILY 11/19/23 01/16/25 amitriptyline 10 mg tablet 10 mg PO HS 11/19/23 01/16/25 amlodipine 10 mg tablet 10 mg PO DAILY 11/19/23 01/16/25 atorvastatin 80 mg tablet 80 mg PO HS 11/19/23 01/16/25 glipizide 10 mg tablet, extended 20 mg PO DAILY 11/19/23 01/16/25 release 24 hr hydrocodone 5 mg-acetaminophen 325 1 tab PO BID PRN pain 11/19/23 01/16/25 mg tablet naloxone 4 mg/actuation nasal spray 1 spray intranasal .PRN PRN 11/19/23 01/16/25 apixaban 5 mg tablet (Eliquis) 5 mg PO BID 01/12/25 01/16/25 lisinopril 10 mg tablet 10 mg PO DAILY 01/13/25 01/16/25 polyethylene glycol 3350 17 17 g PO DAILY 01/13/25 01/16/25 gram/dose oral powder sitagliptin phosphate 50 mg tablet 50 mg PO DAILY 01/13/25 01/16/25 (Januvia) metformin 500 mg tablet 500 mg PO BID 01/16/25 01/16/25 Previous Rx's ?Medication ?Instructions ?Recorded azithromycin 250 mg tablet 250 mg PO DAILY 2 days #2 tabs 01/15/25 (Zithromax) cefdinir 300 mg capsule 300 mg PO BID 7 days #14 caps 01/15/25 Allergies Allergy/AdvReac Type Severity Reaction Status Date / Time No Known Drug Allergies Allergy Verified 01/16/25 09:43 Review of Systems Status of ROS: Reports: 10 or more systems reviewed and unremarkable except as noted in History and below [facility] Medical History Non-insulin dependent diabetes mellitus Stroke ?I63.9 - Cerebral infarction, unspecified (ICD-10) Squamous cell carcinoma of lung, stage I ?C34.90 - Malignant neoplasm of unspecified part of unspecified bronchus or lung (ICD-10) Right sided weakness ?R53.1 - Weakness (ICD-10) Tobacco use ?Z72.0 - Tobacco use (ICD-10) Peripheral neuropathy ?G62.9 - Polyneuropathy, unspecified (ICD-10) Essential hypertension ?I10 - Essential (primary) hypertension (ICD-10) Abdominal aneurysm ?I71.40 - Abdominal aortic aneurysm, without rupture, unspecified (ICD-10) CKD stage 3b, GFR 30-44 ml/min ?N18.32 - Chronic kidney disease, stage 3b (ICD-10) Surgical History H/O total hip arthroplasty ?Z96.649 - Presence of unspecified artificial hip joint (ICD-10) S/P bronchoscopy with biopsy ?Z98.890 - Other specified postprocedural states (ICD-10) Social History Narrative: Delaney would be medical decision maker if needed. Requests DNR/DNI status. Retired, smokes 15-20 cigarettes/day. No concerning ETOH use. What is your current living situation?: I presently have a place to live Problems where you live: no known problems Problems where you live details: n/a In the past 12 months, utilities in danger of being shut off: no In past 12 months, lack of transportation kept you from medical appts, meetings, work, or getting things needed for daily living: no In the past 12 mos, have been you worried that your food would run out before you had money to buy more?: never true In the past 12 mos, the food you bought just didn't last and you didn't have money to buy more?: never true Highest level of school completed/degree received: Bachelor's degree Smoking Status: Current every day smoker What tobacco products do you use: cigarettes Smoking packs per day: 0.75 Smoking cigarettes per day: 15.0 Years smoked: 50 Smoking pack-years: 37.50 Do you use any of these nicotine containing products: None Second hand tobacco smoke exposure: Yes How often do you have a drink containing alcohol: monthly or less Alcohol type: hard liquor How many standard drinks containing alcohol do you have on a typical day: 1 or 2 How often do you have six or more drinks on one occasion: Never AUDIT-C Alcohol total score: 1 Non-prescribed substance use: denies use Caffeine: No How often does anyone, including family, friends and others, physically hurt you: never How often does anyone, including family, friends and others, insult or talk down to you: never How often does anyone, including family, friends and others, threaten you with harm: never How often does anyone, including family, friends and others, scream or curse at you: never service: No Exam Narrative: Exam Narrative: On examination in room 5 he is in no apparent distress he is able to sit up for me, with 1 arm helping him. He is able to hold himself up. He is alert oriented x3. Speaking normally. Pupils equal round reactive to light, no scleral icterus redness, chest is good air entry bilaterally with the exception of the left lower lobe. Which is show some decreased air entry, along with dullness to percussion. Right side is normal heart sounds no clicks murmurs or gallops, abdomen is soft there is no guarding, pelvis stable, moves all extremities independently well, with just trace right-sided weakness of his hand arm and leg. Const: Vital Signs, click to edit/add: Vital Signs - 24 hr 01/16/25 09:40 01/16/25 10:13 01/16/25 10:14 Temperature 98 F Pulse Rate 96 93 Pulse Rate [Right Pulse Oximeter] 87 Respiratory Rate 18 Blood Pressure 117/87 Blood Pressure [Ri ght Upper Arm] 106/71 Pulse Oximetry 98 95 95 Oxygen Delivery Me thod Room Air 01/16/25 10:15 01/16/25 10:30 01/16/25 10:31 Temperature Pulse Rate 94 78 83 Pulse Rate [Right Pulse Oximeter] Respiratory Rate Blood Pressure 140/88 H Blood Pressure [Ri ght Upper Arm] Pulse Oximetry 94 96 95 Oxygen Delivery Me thod 01/16/25 10:32 01/16/25 10:45 Temperature Pulse Rate 89 79 Pulse Rate [Right Pulse Oximeter] Respiratory Rate Blood Pressure Blood Pressure [Ri ght Upper Arm] Pulse Oximetry 95 95 Oxygen Delivery Me thod Documenting provider has reviewed patient's vital signs: yes Course Vital Signs Vital signs: Initial Vital Signs Temperature 98 F 01/16/25 09:40 Temperature Source Temporal Artery Scan 01/16/25 09:40 Pulse Rate 87 01/16/25 09:40 Pulse Rhythm Regular 01/16/25 09:40 Pulse Strength 3+ Normal 01/16/25 09:40 Respiratory Rate 18 01/16/25 09:40 Blood Pressure 106/71 01/16/25 09:40 Blood Pressure Mean 82 01/16/25 09:40 Blood Pressure Position Sitting 01/16/25 09:40 Pulse Oximetry 98 01/16/25 09:40 Oxygen Delivery Method Room Air 01/16/25 09:40 Vital Signs Temperature 98 F 01/16/25 09:40 Pulse Rate 87 01/16/25 09:40 Respiratory Rate 18 01/16/25 09:40 Blood Pressure 106/71 01/16/25 09:40 Pulse Oximetry 98 01/16/25 09:40 Oxygen Delivery Method Room Air 01/16/25 09:40 Temperature 98 F 01/16/25 09:40 Pulse Rate 79 01/16/25 10:45 Respiratory Rate 18 01/16/25 09:40 Blood Pressure 140/88 H 01/16/25 10:31 Pulse Oximetry 95 01/16/25 10:45 Oxygen Delivery Method Room Air 01/16/25 09:40 MDM - Weakness MDM Narrative Medical decision making narrative: Life-threatening differential diagnosis considered include stroke, coronary artery disease, pneumonia, and heart failure. Other differential diagnosis include but are not limited to electrolyte imbalances, anemia, medication reactions, and urinary tract infection I had talked with both him and his . We can admit to the hospital for weakness, but we can admit you if you can not be safe at home, and transition you to a retirement, for short term. He was initially resistant to this idea but I explained he would not have any other options. And then was all in. I had Dr. Mendes from [facility] come down and see him. Medical Records Attestation: I reviewed the patient's medical records. Lab Data Attestation: I reviewed the patient's lab results. Lab results narrative: Hyponatremia noted, in the setting of mild dehydration Labs: Lab Results 01/16/25 Range/Units 10:10 Sodium 132 L (135-149) mmol/L Potassium 3.7 (3.6-5.1) mmol/L Chloride 107 (96-114) mmol/L Carbon Dioxide 17 L (20-32) mmol/L Anion Gap 8 (7-15) mEq/L BUN 23 (7-30) mg/dL Creatinine 1.2 (0.5-1.5) mg/dL Estimated GFR 65 ml/min Glucose 289 H (60-115) mg/dL Calcium 8.0 L (8.4-10.6) mg/dL Discharge Plan Discharge Clinical Impression: Weakness, Left lower lobe pneumonia, Non-insulin dependent diabetes mellitus, Physical deconditioning, History of cerebrovascular accident (CVA) due to ischemia Patient Disposition: Admitted As Observation Condition: Unchanged
[2025-01-16 10:36] LABS: Anion Gap 8 mEq/L (7-15); Blood Urea Nitrogen* 23 mg/dL (7-30); Calcium* 8.0 mg/dL (8.4-10.6); Carbon Dioxide* 17 mmol/L (20-32); Creatinine* 1.2 mg/dL (0.5-1.5); Estimated Glomerular Filt Rate 65 ml/min; Glucose* 289 mg/dL (60-115)
[2025-01-16 11:48] LABS: Appearance Urine Clear (Clear)
[2025-01-16 11:52] LABS: Immature Granulocytes Abs Auto 0.10 K/uL (0.00-0.30); Lymphocytes Absolute Auto 0.80 K/uL (0.90-2.90); Slide Review Reflex No
--- NOTE | 2025-01-16 12:27 | RESP.RT ---
Patient lying in bed, HOB up slightly, Patient appear comfortable, good clear voice. Breathing regular/easy, rate 18/minute, SaO2 93%. BBS with all lung field diminished with , LLL more diminished that rest of lung hauser. No wheeze or rales noted. Patient fair cough dry cough, nonproductive, able to clear secretions if present.
[2025-01-16] MEDS: AZITHROMYCIN 250 MG TABLET PO (14:38)
[2025-01-16] MEDS: AMLODIPINE 10 MG TABLET PO (14:38)
[2025-01-16] MEDS: APIXABAN 5 MG TABLET PO ×2 (14:38→20:26)
[2025-01-16] MEDS: SITAGLIPTIN PHOSPHATE 50 MG TABLET PO (14:38)
--- NOTE | 2025-01-16 14:53 | PC.NURSE ---
Pt was admitted to unit at 1105. is at bedside, pt reports walking in his house yesterday and falling, he was able to get up and sit in a love seat where he sat until this morning when called EMS d/t feeling too weak to stand from sofa. Pt states he was not using his walker in the home. VSS, denies pain. A&Ox4. Pt was able to ambulate from bed to bathroom and back with two assist and walker. Laying in bed at this time. Using call light appropriately.
--- NOTE | 2025-01-16 16:35 | PM.IMHP1 ---
Assessment and Plan Assessment and plan (1) Weakness: Status: Acute (2) Physical deconditioning: Problem comment: - per , leans on her when ambulating, refusing to use walker, mostly sedentary - I do not see any change in his condition from yesterday. No acute medical concerns at this time. - admit for obs for SNF placement for rehab. PT and OT to reassess. SW consult for d/c planning. Status: Acute (3) Left lower lobe pneumonia: Problem comment: - as evidenced by new weakness (progressive 3 weeks), L rib pain, tachypnea, tachycardia, leukocytosis, decreased breath sounds - CT chest shows Within the area of the known previously treated malignancy in the left lower lobe, there is significant increase in size of soft tissue along with a new small to moderate and partially loculated left pleural effusion and suspected increasing left hilar lymphadenopathy. Differential would include disease progression, aggressive appearing postradiation change/necrosis, and infection - Ceftriaxone and Doxycycline (01/12/25) in ED, changed to Zosyn on admission 01/12, added Vancomycin 01/13 - CTA neg for PE on 01/14 - continue cefdinir and azithromycin to finish out course - patient to reschedule outpatient PET scan which would help to differentiate malignancy Status: Acute (4) Tobacco use: Problem comment: - active, approximately 15 cigarettes/day, declines scheduled nicotine replacement Status: Chronic (5) Stroke: Problem comment: - history of, chronic - L cerebral hemisphere (2022), posterior cerebral hemispheres and L basal ganglia + L frontal and parietal lobs (2023) - on high dose statin + Apixaban, residual R sided weakness Status: Chronic (6) Hyponatremia: Problem comment: - mild, stable - I do not think this is severe enough to be causing weakness - start daily nutritional supplementation Status: Acute (7) Non-insulin dependent diabetes mellitus: Problem comment: - A1C 9.7 01/03/25 - resume home meds Status: Acute Hospitalist- H&P: HPI History of Present Illness Time Seen by Provider: 11:00 Date Seen: 01/16/25 Chief complaint: pneumonia, weakness Narrative: Chato He is a 69 year old male with stage 1 lung cancer, DM2, CVA, and tobacco use, who was discharged from the hospital yesterday by myself after a hospital stay for pneumonia, sepsis, debilitation, and weakness, and returned today to the ER by EMS for weakness. While in the hospital for pneumonia, SNF was discussed and patient declined rehab. Yesterday, he was medically ready for discharge and therapy and I asked him again about rehab and he refused, adamant about going home. His was willing to take him as long as he agreed to home health PT/OT (which he had previously turned away prior to that admission). He agreed to this and was discharged with an order to resume home services. He reportedly fell getting out of the car upon getting home yesterday, then he went to the couch and has been there since. His states she cannot get him to get up to use the bathroom, so she called 911. He denies any injuries from the fall. He notes chronic neuropathic pain that is unchanged, and denies any new pain, CP or chest discomfort or SOB, or focal numbness, weakness or tingling. His tells me that she does not recall anyone talking with her about a SNF or rehab, and that she did not hear me or the OT yesterday discuss rehab or SNF, despite being in the room for those conversations. Today they both agree that he needs a SNF for rehab, and he agreed that he is willing to participate in all therapies. Review of Systems Status of ROS: Reports: 6 or more systems reviewed and unremarkable except as noted in History and below Medical Decision Making Medical Decision Making Code Status: DNI/DNI Has patient completed a Health Care Directive: Yes During This Stay, Who Would You Like To Make Decisions For You In The Event You Are Unable To Make Them For Yourself?: [facility] Medical History (Updated 01/16/25 @ 17:09 by Renae Mendes MD) Non-insulin dependent diabetes mellitus Stroke ?I63.9 - Cerebral infarction, unspecified (ICD-10) Squamous cell carcinoma of lung, stage I ?C34.90 - Malignant neoplasm of unspecified part of unspecified bronchus or lung (ICD-10) Right sided weakness ?R53.1 - Weakness (ICD-10) Tobacco use ?Z72.0 - Tobacco use (ICD-10) Peripheral neuropathy ?G62.9 - Polyneuropathy, unspecified (ICD-10) Essential hypertension ?I10 - Essential (primary) hypertension (ICD-10) Abdominal aneurysm ?I71.40 - Abdominal aortic aneurysm, without rupture, unspecified (ICD-10) CKD stage 3b, GFR 30-44 ml/min ?N18.32 - Chronic kidney disease, stage 3b (ICD-10) Surgical History H/O total hip arthroplasty ?Z96.649 - Presence of unspecified artificial hip joint (ICD-10) S/P bronchoscopy with biopsy ?Z98.890 - Other specified postprocedural states (ICD-10) Social History Narrative: Delaney would be medical decision maker if needed. Requests DNR/DNI status. Retired, smokes 15-20 cigarettes/day. No concerning ETOH use. What is your current living situation?: I presently have a place to live Problems where you live: no known problems Problems where you live details: n/a In the past 12 months, utilities in danger of being shut off: no In past 12 months, lack of transportation kept you from medical appts, meetings, work, or getting things needed for daily living: no In the past 12 mos, have been you worried that your food would run out before you had money to buy more?: never true In the past 12 mos, the food you bought just didn't last and you didn't have money to buy more?: never true Highest level of school completed/degree received: some college, no degree Smoking Status: Current every day smoker What tobacco products do you use: cigarettes Smoking packs per day: 0.75 Smoking cigarettes per day: 15.0 Years smoked: 50 Smoking pack-years: 37.50 Do you use any of these nicotine containing products: None Second hand tobacco smoke exposure: Yes How often do you have a drink containing alcohol: monthly or less Alcohol type: beer How many standard drinks containing alcohol do you have on a typical day: 1 or 2 How often do you have six or more drinks on one occasion: Never AUDIT-C Alcohol total score: 1 Non-prescribed substance use: denies use Caffeine: No How often does anyone, including family, friends and others, physically hurt you: never How often does anyone, including family, friends and others, insult or talk down to you: never How often does anyone, including family, friends and others, threaten you with harm: never How often does anyone, including family, friends and others, scream or curse at you: never service: No Meds Home Medications and Allergies Home Medications ?Medication ?Instructions ?Recorded ?Confirmed ?Type allopurinol 100 mg tablet 100 mg PO DAILY 11/19/23 01/16/25 History amitriptyline 10 mg tablet 10 mg PO HS 11/19/23 01/16/25 History amlodipine 10 mg tablet 10 mg PO DAILY 11/19/23 01/16/25 History atorvastatin 80 mg tablet 80 mg PO HS 11/19/23 01/16/25 History glipizide 10 mg tablet, extended 20 mg PO DAILY 11/19/23 01/16/25 History release 24 hr hydrocodone 5 mg-acetaminophen 325 1 tab PO BID PRN pain 11/19/23 01/16/25 History mg tablet naloxone 4 mg/actuation nasal spray 1 spray intranasal .PRN PRN 11/19/23 01/16/25 History apixaban 5 mg tablet (Eliquis) 5 mg PO BID 01/12/25 01/16/25 History lisinopril 10 mg tablet 10 mg PO DAILY 01/13/25 01/16/25 History polyethylene glycol 3350 17 17 g PO DAILY 01/13/25 01/16/25 History gram/dose oral powder sitagliptin phosphate 50 mg tablet 50 mg PO DAILY 01/13/25 01/16/25 History (Januvia) azithromycin 250 mg tablet 250 mg PO DAILY 2 days #2 tabs 01/15/25 01/16/25 Rx (Zithromax) cefdinir 300 mg capsule 300 mg PO BID 7 days #14 caps 01/15/25 01/16/25 Rx metformin 500 mg tablet 500 mg PO BID 01/16/25 01/16/25 History Allergies Allergy/AdvReac Type Severity Reaction Status Date / Time No Known Drug Allergies Allergy Verified 01/16/25 09:43 Exam Narrative: Exam Narrative: General: No acute distress. Awake alert oriented x3. HEENT: Normocephalic atraumatic, pupils equally round and reactive to light and accommodation. Oropharynx clear. Mucous membranes are moist. No JVD. Cardiovascular: Regular rate and rhythm. No murmurs, gallops, or rubs. Chest: No increased work of breathing. Diminished breath sounds at left base. Otherwise clear to auscultation bilaterally. No wheezes or crackles. Abdomen: Bowel sounds present. Soft, nondistended, nontender. No hepatosplenomegaly or masses. Extremities: No edema, no cyanosis or clubbing. Skin: No jaundice, no pallor, no rashes on visible skin. Neuro: Grossly intact. No focal deficits. Const: Vital Signs, click to edit/add: Vital Signs - 24 hr 01/16/25 09:40 01/16/25 10:13 01/16/25 10:14 Temperature 98 F Pulse Rate 96 93 Pulse Rate [Pulse Oximeter] Pulse Rate [Right Pulse Oximeter] 87 Respiratory Rate 18 Blood Pressure 117/87 Blood Pressure [Ri ght Arm] Blood Pressure [Ri ght Upper Arm] 106/71 Pulse Oximetry 98 95 95 Oxygen Delivery Me thod Room Air 01/16/25 10:15 01/16/25 10:30 01/16/25 10:31 Temperature Pulse Rate 94 78 83 Pulse Rate [Pulse Oximeter] Pulse Rate [Right Pulse Oximeter] Respiratory Rate Blood Pressure 140/88 H Blood Pressure [Ri ght Arm] Blood Pressure [Ri ght Upper Arm] Pulse Oximetry 94 96 95 Oxygen Delivery Me thod 01/16/25 10:32 01/16/25 10:45 01/16/25 11:05 Temperature 97.6 F Pulse Rate 89 79 Pulse Rate [Pulse Oximeter] 114 H Pulse Rate [Right Pulse Oximeter] Respiratory Rate 18 Blood Pressure Blood Pressure [Ri ght Arm] 151/103 H Blood Pressure [Ri ght Upper Arm] Pulse Oximetry 95 95 94 Oxygen Delivery Me thod Room Air 01/16/25 12:24 01/16/25 15:00 Temperature 98.0 F Pulse Rate Pulse Rate [Pulse Oximeter] 97 Pulse Rate [Right Pulse Oximeter] Respiratory Rate 18 18 Blood Pressure Blood Pressure [Ri ght Arm] 132/89 Blood Pressure [Ri ght Upper Arm] Pulse Oximetry 93 95 Oxygen Delivery Me thod Room Air Room Air Hospitalist - H&P: Result Labs Labs: Short CBC 01/16/25 Range/Units 10:10 WBC 16.54 H (4.50-11.00) K/uL Hgb 10.2 L (13.5-17.5) gm/dL Hct 30.9 L (37.0-53.0) % Plt Count 321 (140-440) K/uL BMP 01/16/25 10:10 Sodium 132 L Potassium 3.7 Chloride 107 Carbon Dioxide 17 L BUN 23 Creatinine 1.2 Glucose 289 H Calcium 8.0 L Urine 01/16/25 Range/Units 11:40 Urine Color Yellow (Yellow) Urine Appearance Clear (Clear) Urine pH 5.5 (5.0-8.5) Ur Specific [place] 1.020 (1.000-1.030) Urine Protein 1+ A (Negative) Urine Glucose (UA) 1+ A (Negative)
[2025-01-16] MEDS: INSULIN ASPART 100 UNIT/ML SUBCUT ×2 (17:12→20:23)
[2025-01-16] MEDS: HYDROCODONE-ACETAMIN 5-325 MG 1 TAB PO (19:38)
[2025-01-16] MEDS: SODIUM CHLORIDE 0.9 % (FLUSH) 10 ML SYRINGE 5 ML IVF (20:25)
[2025-01-16] MEDS: ATORVASTATIN CALCIUM 40 MG TABLET 80 MG PO (20:26)
[2025-01-16] MEDS: METFORMIN 500 MG TABLET PO (20:26)
[2025-01-16] MEDS: AMITRIPTYLINE HCL 10 MG TABLET PO (20:27)
--- NOTE | 2025-01-16 22:08 | PC.NURSE ---
Patient up with assist of 2 gait belt and walker. Bed and chair alarm in place due to lack of safety awareness. Patient received blood sugars and insulin as ordered, managed pain with prn medications. patient uses urinal at bedside . PIV Right hand patent.
[2025-01-17] VITALS (9 sets, daily range): BP systolic 108–151; BP diastolic 72–94; PULSE 80–102; RESP 16–20; TEMP 36.3–37; O2SAT 91–96; BMI 23.9
--- NOTE | 2025-01-17 06:28 | PC.NURSE ---
End of shift note [id number]: Pt noted to be A&O to person, place and time. VSS- pt has been afebrile and on RA throughout the shift. Pt requiring assist of 2 with FWW & GB for transferring/ambulation. Call light within reach and bed alarm on for safety. Pt noted to be continent and incontinent of bladder throughout the shift.
--- NOTE | 2025-01-17 09:21 | PC.SOCIAL ---
Addendum entered by JACQUELINE Hewitt 01/17/25 15:11: Received call from Antonio with admissions at the [facility] who offered a private room with shared bath for tomorrow admission. Met with pt and who are aware and agree with this plan and room offer. They are aware there is an outside smoking area at the facility and that pt will be assessed by their staff as to whether he is safe to use that area independently as staff do not assist patients in using the smoking area. Pt and agree with this plan. and pt are aware and agree with plan for the PET scan and any future cancer treatment will wait until completion of the rehab therapy at this facility. is currently planning to transport pt in her own vehicle tomorrow at 11:00. They are aware of the option to pay privately for an ambulance transport, but are choosing to provide their own transportation. forming process line worker to call in the morning to confirm this plan after morning rounds. PAS completed PAS#[id number]. forming process line worker to follow up as needed. Addendum entered by JACQUELINE Hewitt 01/17/25 10:45: Received call back from [facility] stating they have a shared room available. They requested licensed master social worker speak to family about it being a shared room and about it being a non-smoking facility. forming process line worker called gareth Fagan, who requested licensed master social worker contact [facility] to see if they have a private room and to confirm they have an outside smoking area. forming process line worker sent referral to [facility] intake and awaiting decision on admit. forming process line worker to follow up as needed. Original Note: Discharge planning: Spoke with gareth Fagan by phone [phone] who confirmed she has the information social work provided during the last visit regarding the nursing homes and ratings of those facilities. requested placement in a nursing facility in the following order: [facility], [facility] and [facility]. is aware this transitional care stay is expected to be covered by insurance, and that pt is ready for discharge to a SNF today if accepted. states she is available by phone today for planning and that she can provide transportation at discharge. forming process line worker to follow up as needed.
[2025-01-17] MEDS: HYDROCODONE-ACETAMIN 5-325 MG 1 TAB PO (09:29)
[2025-01-17] MEDS: APIXABAN 5 MG TABLET PO ×2 (09:29→20:46)
[2025-01-17] MEDS: AMLODIPINE 10 MG TABLET PO (09:29)
[2025-01-17] MEDS: AZITHROMYCIN 250 MG TABLET PO (09:29)
[2025-01-17] MEDS: SODIUM CHLORIDE 0.9 % (FLUSH) 10 ML SYRINGE 5 ML IVF ×2 (09:30→20:47)
[2025-01-17] MEDS: METFORMIN 500 MG TABLET PO ×2 (09:30→20:46)
--- NOTE | 2025-01-17 09:30 | W.PC.NUTR.HO ---
Hospital Nutrition Assessment Patient Data Patient Gender: Male Patient Age: 69 Height: 6 ft 5 in (165.1 cm) Weight: 202 lb 2 oz (91.875 kg) Body Mass Index: 23.9 Usual Body Weight: 220 lb (Approximately 3 weeks ago per patient report. ) Weight Calculations [place] Body Weight (lbs): 208.00 [place] Body Weight (kg): 94.35 Percent of [place] Body Weight: 97 Adjusted Body Weight (lbs): 206.53 Adjusted Body Weight (kg): 93.68 Percent of Usual Body Weight: 92 Basal Energy Expenditure (BEE): 1824.59 Basal Energy Expenditure (BEE) Adjusted Weight: 1852.06 Activity/Stress Factors Injury Factor/Activity Factor Value: 1.3 Total Energy Requirements Kcal requirements (current wt): 2371.967 Kcal requirements (adj wt): 2407.678 Protein Need (current wt): 1.0 Total Protein (current wt): 91.682 Protein Need (adj wt): 1.0 Total Protein (adj wt): 93.680 Fluid Need (current wt): 27 Total Fluid (current wt): 2475.424 Fluid Need (adj wt): 27 Total Fluid (adj wt): 2529.36 Nutrition Assessment Diet Order: Regular Food Modified for Dysphagia: 7-Regular Liquid Modified for Dysphagia: 0-Thin Allergies: NKFA Appetite Prior to Admission: Poor (Decreased appetite for ~3 weeks) Appetite and Intake: 75% at dinner 01/16 Comment: Enlive once daily per MD order Hx Appetite Changes: Yes (Decreased for ~3 weeks prior to admission. ) Hx Weight Loss: Yes (Patient reports weight loss 18lbs or 8.1%, which is significant loss.) Hx Weight Gain: No Nausea: No Vomiting: No Diarrhea: No Hx Constipation: No Chewing Difficulty: No Swallowing Difficulty: No Pressure Ulcer: No Diagnosis/Symptom or Procedure: Weakness, Physical deconditioning, pneumonia Clinical History: Medical history includes, but not limited to: hyperglycemia, stage 1 squamous cell carcinoma (follows [facility], not currently receiving treatment), elevated LFTs, non-insulin dependent diabetes mellitus, stroke, tobacco use, mechanical fall, abdominal aneurysm, and CKD stage 3b. Patient was discharged home, however failed and was brought back from placement. Current Living Situation: Home with . Medications Medications: Reviewed. Lab Results Lab Results: Reviewed. Education Topic Comment: Patient and were educated on High-Calorie, High-Protein diet during last hospitalization on 01/13. Assessment/Plan PES Statement: Inadequate oral intakes related to decreased appetite as evidenced by patient report of decreased oral intakes for ~3 weeks prior to this admission and weight loss of 18lbs or 8.1% in ~3 weeks per patient report. Nutritional Assessment Summary: RDN with +MST for weight loss and eating poorly. Patient is known to RDN from previous hospitalization from 01/12-01/15. At that time, patient received diet education for high protein, high calorie diet. Supplement was ordered once daily as well at that time. Patient was discharged home 01/15, but failed and was admitted for placement 01/16. Patient's weight has been stable since discharge. Enlive ordered once daily per MD which provides 350 kcals and 20 grams protein. No additional nutrition interventions at this time. Goals: Adequate oral intakes 50%+ at meals, snacks, and nutrition supplements. No s/s of dehydration. Plan/Recommendation: Regular diet per MD order. Enlive once daily. RDN will continue to monitor and follow-up prn. Malnutrition Assessment Current Energy Intake: Less Than 75% Estimated Timeframe Of Energy Intake: Greater Than Or Equal To 1 Month (per patient report. ) Weight Changes: >5% In 1 Month Recommended Malnutrition Diagnosis: Further Physical Evaluation Required By MD To Determine
[2025-01-17] MEDS: SITAGLIPTIN PHOSPHATE 50 MG TABLET PO (09:49)
[2025-01-17] MEDS: CEFPODOXIME PROXETIL 200 MG TABLET PO ×2 (10:21→21:27)
--- NOTE | 2025-01-17 12:27 | REH.OT ---
Pt declines working with OT today; will evaluate tomorrow if pt is agreeable
[2025-01-17 12:28] LABS: C.Difficile Negative (Negative); CDIFFEPI 027 PRESUMPTIVE NEGATIVE (Negative)
[2025-01-17] MEDS: INSULIN ASPART 100 UNIT/ML SUBCUT ×2 (13:25→21:27)
--- NOTE | 2025-01-17 18:01 | PM.IMPN1 ---
Assessment and Plan Assessment and plan (1) Weakness: Problem comment: - Due to deconditioning. Some LE edema, give dose of lasix today Status: Acute (2) Physical deconditioning: Problem comment: - per , leans on her when ambulating, refusing to use walker, mostly sedentary - I do not see any change in his condition from yesterday. No acute medical concerns at this time. - admited for obs for SNF placement for rehab. PT and OT to reassess. SW consult for d/c planning. Status: Acute (3) Left lower lobe pneumonia: Problem comment: - as evidenced by new weakness (progressive 3 weeks), L rib pain, tachypnea, tachycardia, leukocytosis, decreased breath sounds - CT chest shows Within the area of the known previously treated malignancy in the left lower lobe, there is significant increase in size of soft tissue along with a new small to moderate and partially loculated left pleural effusion and suspected increasing left hilar lymphadenopathy. Differential would include disease progression, aggressive appearing postradiation change/necrosis, and infection - Ceftriaxone and Doxycycline (01/12/25) in ED, changed to Zosyn on admission 01/12, added Vancomycin 01/13 - CTA neg for PE on 01/14 - continue cefdinir and azithromycin to finish out course - patient to reschedule outpatient PET scan (after rehab stay) which would help to differentiate malignancy - 01/17 continue oral antibiotics: vantin, azithromycin Status: Acute (4) Squamous cell carcinoma of lung, stage I: Problem comment: - diagnosed 07/17, [id number] Stage 1A2 - follows with [facility] in [place] - was due for PET scan 01/13 ( will rescheduled 2/2 hospitalization) - CT shows developing cavitation, loculated pleural effusion, outpatient follow-up Status: Acute (5) Tobacco use: Problem comment: - active, approximately 15 cigarettes/day, declines nicotine replacement Status: Chronic (6) Non-insulin dependent diabetes mellitus: Problem comment: - A1C 9.7 01/03/25 - resume home meds Status: Acute (7) Stroke: Problem comment: - history of, chronic - L cerebral hemisphere (2022), posterior cerebral hemispheres and L basal ganglia + L frontal and parietal lobs (2023) - on high dose statin + Apixaban, residual R sided weakness Status: Chronic (8) Hyponatremia: Problem comment: - mild, stable - I do not think this is severe enough to be causing weakness - daily nutritional supplementation Status: Acute Plan Continue IV antibiotics, transition to oral likely 01/15 and discharge to home if continued clinical improvement. Resume home health cares on discharge Total Time Spent Total Time Spent: Today I spent 55 minutes seeing the patient, reviewing Expanse and EPIC notes/diagnostics, discussing the care plan with our care time that includes social work, PT/OT, pharmacy, RT, nursing home and documenting my impressions and plan in the medical record. Subjective Time Seen by Provider: 07:55 Date Seen: 01/17/25 Interval history: Chato is feeling well. He refused PT and OT today because he did not like the PT provider. His was in the room with him. I reminded him that when I was admitting him yesterday, we discussed SNF and therapies, and he agreed he would participate in all therapies. I informed him that refusing therapies could jeopardize his acceptance to a SNF, and his has stated that she is unable to take him home, and I cannot keep him in the hospital indefinitely. He and his demonstrated understanding. His thanked me for explaining that and said that he would participate in therapies now. We also discussed SNF and that he would be unable to get PET or cancer treatment while at a SNF for rehab. He and his agreed that they want him to go to SNF for rehab and will hold off until he is discharged from there to reschedule the PET scan. Exam Narrative: Exam Narrative: General: No acute distress. Awake alert oriented x3. Cardiovascular: Regular rate and rhythm. No murmurs, gallops, or rubs. Chest: No increased work of breathing. Mild crackles at left base. Otherwise clear to auscultation bilaterally. No wheezes or crackles. Abdomen: Bowel sounds present. Soft, nondistended, nontender. Extremities: 1+ bilateral pitting edema. Const: Vital Signs, click to edit/add: Vital Signs - 24 hr 01/16/25 18:33 01/16/25 23:00 01/17/25 00:04 Temperature 98.1 F Pulse Rate [Pulse Oximeter] 94 89 Respiratory Rate 18 18 18 Blood Pressure [Ri ght Arm] 122/83 Pulse Oximetry 95 94 Oxygen Delivery Me thod Room Air Room Air 01/17/25 00:05 01/17/25 02:39 01/17/25 07:00 Temperature 97.8 F 97.7 F Pulse Rate [Pulse Oximeter] 89 101 H 94 Respiratory Rate 18 20 18 Blood Pressure [Ri ght Arm] 116/75 128/79 Pulse Oximetry 94 96 Oxygen Delivery Me thod Room Air Room Air 01/17/25 07:00 01/17/25 07:00 01/17/25 11:00 Temperature 98.6 F 98.6 F Pulse Rate [Pulse Oximeter] 94 98 Respiratory Rate 20 18 16 Blood Pressure [Ri ght Arm] 126/85 110/76 Pulse Oximetry 91 91 94 Oxygen Delivery Me thod Room Air Room Air Room Air 01/17/25 15:00 01/17/25 15:00 Temperature 97.4 F L Pulse Rate [Pulse Oximeter] 95 Respiratory Rate 16 Blood Pressure [Ri ght Arm] 108/72 Pulse Oximetry 96 96 Oxygen Delivery Me thod Room Air Room Air Labs Labs: Laboratory Results - last 24 hr 01/17/25 10:42 Stl C. diff Tox B Gene Negative Stl C. diff [id number] PRESUMPTIVE NEGATIVE
--- NOTE | 2025-01-17 18:55 | PC.NURSE ---
VSS. Denies pain. A&Ox4. Ambulating with 1-2 assist and walker. Pt is resistant to cares and denied therapy today. Pt is tolerating oral intake. Refused supper, blood glucose remains WNL. Provider ordered one dose IV lasix for BLE swelling, pt refused medication. Pt is using call light appropriately.
[2025-01-17] MEDS: ATORVASTATIN CALCIUM 40 MG TABLET 80 MG PO (20:46)
[2025-01-17] MEDS: AMITRIPTYLINE HCL 10 MG TABLET PO (20:46)
[2025-01-18] MEDS: HYDROCODONE-ACETAMIN 5-325 MG 1 TAB PO ×2 (03:01→10:42)
[2025-01-18 03:04] VITALS: BP 114/71; PULSE 93; RESP 18; TEMP 36.6; O2SAT 93
--- NOTE | 2025-01-18 06:24 | PC.NURSE ---
End of shift report : VSS. Afebrile.?Pt rates pain from a 0-5/10,?due to his?chronic?BLE?neuropathy;?prn?pain med offered and?given with?relief.?Pt is?incont?of bowel/bladder.?Pt needed encouragement to ambulate to the BR. Ambulates 1-2A, GB, W.?Bed alarm on, call light within reach.??
[2025-01-18 06:34] LABS: Chloride* 112 mmol/L (96-114); Potassium* 3.3 mmol/L (3.6-5.1); Sodium* 136 mmol/L (135-149)
[2025-01-18 06:37] LABS: Anion Gap -1 mEq/L (7-15); Blood Urea Nitrogen* 21 mg/dL (7-30); Calcium* 8.1 mg/dL (8.4-10.6); Carbon Dioxide* 25 mmol/L (20-32); Creatinine* 1.2 mg/dL (0.5-1.5); Est. Creatinine Clearance* 71.16; Estimated Glomerular Filt Rate 65 ml/min; Glucose* 136 mg/dL (60-115)
[2025-01-18 07:00] VITALS: BP 114/79; PULSE 75; RESP 18; TEMP 36.7; O2SAT 93
[2025-01-18] MEDS: SITAGLIPTIN PHOSPHATE 50 MG TABLET PO (08:54)
[2025-01-18] MEDS: METFORMIN 500 MG TABLET PO (08:54)
[2025-01-18] MEDS: AMLODIPINE 10 MG TABLET PO (08:54)
[2025-01-18] MEDS: APIXABAN 5 MG TABLET PO (08:54)
[2025-01-18] MEDS: CEFPODOXIME PROXETIL 200 MG TABLET PO (08:54)
[2025-01-18] MEDS: POTASSIUM BICARB 25 MEQ EFFERVESCENT TAB PO (08:55)
--- NOTE | 2025-01-18 09:09 | P.DS_ITS ---
DS: Providers Provider Time Seen by Provider: 08:01 Date Seen: 01/18/25 Date of admission: 01/16/25 10:51 Primary care physician: Dorinda Washington DO Admitting Clinician: Renae Mendes MD Consults: 01/16/25 11:07 Consult to Occupational Therapy [CONS] Routine Comment: Reason(s) for OT Consult:: Evaluate and Treat Any Restrictions?:: No Restrictions Consult to Physical Therapy [CONS] Routine Comment: Reason(s) for PT Consult:: Evaluate and Treat Any Restrictions?:: No Restrictions Consult to Admeasurer [CONS] Routine Comment: Reason for Consult:: Possible SNF placement Attending Physician on discharge: Renae Mendes MD Date of Discharge: 01/18/25 DS: Diagnosis Discharge Diagnosis (1) Weakness: Status: Acute Problem details: - Due to deconditioning. Some LE edema, ordered dose of lasix 01/17/2025, patient refused it, discussed with patient 01/18/2025 and patient was agreeable to take it once he got to [place], but not while in the hospital (2) Physical deconditioning: Status: Acute Problem details: - per , leans on her when ambulating, refusing to use walker, mostly sedentary - I do not see any change in his condition from yesterday. No acute medical concerns at this time. - admited for obs for SNF placement for rehab. PT and OT to reassess. SW consult for d/c planning. - 01/18/25 discharged to [place] for rehab, patient agreeable to participate in all therapies. (3) Left lower lobe pneumonia: Status: Acute Problem details: - as evidenced by new weakness (progressive 3 weeks), L rib pain, tachypnea, tachycardia, leukocytosis, decreased breath sounds - CT chest shows Within the area of the known previously treated malignancy in the left lower lobe, there is significant increase in size of soft tissue along with a new small to moderate and partially loculated left pleural effusion and suspected increasing left hilar lymphadenopathy. Differential would include disease progression, aggressive appearing postradiation change/necrosis, and infection - Ceftriaxone and Doxycycline (01/12/25) in ED, changed to Zosyn on admission 01/12, added Vancomycin 01/13 - CTA neg for PE on 01/14 - continue cefdinir and azithromycin to finish out course - patient to reschedule outpatient PET scan (after rehab stay) which would help to differentiate malignancy - 01/17 continue oral antibiotics: vantin, azithromycin - 01/18 azithromycin course complete, ordered 4 more days of cefdinir for discharge to compete that course (4) Squamous cell carcinoma of lung, stage I: Status: Acute Problem details: - diagnosed 07/17, [id number] Stage 1A2 - follows with [facility] in [place] - was due for PET scan 01/13 ( will rescheduled 03/28 hospitalization) - CT shows developing cavitation, loculated pleural effusion, outpatient follow-up (5) Tobacco use: Status: Chronic Problem details: - active, approximately 15 cigarettes/day, declines nicotine replacement (6) Non-insulin dependent diabetes mellitus: Status: Acute Problem details: - A1C 9.7 01/03/25 - resume home meds (7) Stroke: Status: Chronic Problem details: - history of, chronic - L cerebral hemisphere (2022), posterior cerebral hemispheres and L basal ganglia + L frontal and parietal lobs (2023) - on high dose statin + Apixaban, residual R sided weakness (8) Hyponatremia: Status: Acute Problem details: - mild, stable - I do not think this is severe enough to be causing weakness - daily nutritional supplementation - 01/18/25 RESOLVED DS: Summary Hospital Course Hospital Course: Chato He is a 69 year old male with stage 1 lung cancer, DM2, CVA, and tobacco use, who was discharged from the hospital yesterday by myself after a hospital stay for pneumonia, sepsis, debilitation, and weakness, and returned today to the ER by EMS for weakness. While in the hospital for pneumonia, SNF was discussed and patient declined rehab. Yesterday, he was medically ready for discharge and therapy and I asked him again about rehab and he refused, adamant about going home. His was willing to take him as long as he agreed to home health PT/OT (which he had previously turned away prior to that admission). He agreed to this and was discharged with an order to resume home services. He reportedly fell getting out of the car upon getting home yesterday, then he went to the [place] and has been there since. His states she cannot get him to get up to use the bathroom, so she called 911. He denies any injuries from the fall. He notes chronic neuropathic pain that is unchanged, and denies any new pain, CP or chest discomfort or SOB, or focal numbness, weakness or tingling. His tells me that she does not recall anyone talking with her about a SNF or rehab, and that she did not hear me or the OT yesterday discuss rehab or SNF, despite being in the room for those conversations. Today they both agree that he needs a SNF for rehab, and he agreed that he is willing to participate in all therapies. Chato refused furosemide on 01/17/25 and I discussed it with him on 01/18, and he again refused, but stated that he would take it when he got to [facility]. He agrees to participate in all therapies. He is discharged in stable condition. Note to PCP: For rehab stay, patient agreed not to pursue PET scan during that time frame. Please discuss follow-up imaging and PET scan with patient, and order for when he has discharged from rehab. Time Spent with Patient Time attestation: Total time spent providing and/or coordinating discharge services: Today I spent 35 minutes seeing and discharging the patient, reviewing [facility] and [facility] notes/diagnostics/labs, discussing the care plan with our care team that includes social work, PT/OT, pharmacy, RT, correction and documenting my impressions and plan in the medical record. Exam Narrative: Exam Narrative: General: No acute distress. Awake alert oriented x3. Cardiovascular: Regular rate and rhythm. No murmurs, gallops, or rubs. Chest: No increased work of breathing. Mild crackles at left base. Otherwise clear to auscultation bilaterally. No wheezes or crackles. Abdomen: Bowel sounds present. Soft, nondistended, nontender. Extremities: 1+ bilateral pitting edema, unchanged (patient refused furosemide yesterday and today). Const: Vital Signs, click to edit/add: Vital Signs - 24 hr 01/17/25 11:00 01/17/25 15:00 01/17/25 15:00 Temperature 98.6 F 97.4 F L Pulse Rate [Pulse Oximeter] 98 95 Respiratory Rate 16 16 Blood Pressure [Ri ght Arm] 110/76 108/72 Pulse Oximetry 94 96 96 Oxygen Delivery Me thod Room Air Room Air Room Air 01/17/25 19:00 01/17/25 19:53 01/17/25 23:00 Temperature 97.9 F 97.6 F Pulse Rate [Pulse Oximeter] 102 H 80 Respiratory Rate 20 20 18 Blood Pressure [Ri ght Arm] 151/94 H 114/82 Pulse Oximetry 95 95 Oxygen Delivery Me thod Room Air Room Air 01/17/25 23:00 01/18/25 03:04 Temperature 97.9 F Pulse Rate [Pulse Oximeter] 93 Respiratory Rate 18 18 Blood Pressure [Ri ght Arm] 114/71 Pulse Oximetry 95 93 Oxygen Delivery Me thod Room Air Room Air DS: Data Data Completed and Pending Labs on day of discharge: Labs from last 24 hours 01/18/25 01/17/25 06:13 10:42 Sodium 136 Potassium 3.3 L Chloride 112 Carbon Dioxide 25 Anion Gap -1 L BUN 21 Creatinine 1.2 Estimated Creat Clear 71.16 Estimated GFR 65 Glucose 136 H Calcium 8.1 L Stl C. diff Tox B Gene Negative Stl C. diff [id number] PRESUMPTIVE NEGATIVE 01/12/2025 EKG: Sinus tachycardia, 101 beats per minute, otherwise normal EKG. Ordering Physician: Eyad Garcia M.D. Date of Service: 01/12/25 Procedure(s): XR chest 2V Accession Number(s): [id number] cc: Eyad Garcia M.D.; Dorinda Washington D.O.~ For Patients: As a result of the Cures Act, medical imaging exams and procedure reports are released immediately into your electronic medical record. You may view this report before your referring provider. If you have questions, please contact your health care provider. Indication: Weakness, pneumonia? Technique: PA and lateral views of the chest. Comparison: Report 12/06/2024 Findings: Partial visualization of right shoulder arthroplasty. Moderate hiatal hernia. Left lower lobe opacity. Mild bibasilar opacities. No pleural effusions or visualized pneumothorax. Impression: Left lower lobe opacity may correspond to the patient`s reported left lower lobe mass. Superimposed infection can not be excluded. Dictated by Phillip Ingram MD @ 01/12/2025 2:59:52 PM (Electronically Signed) Ordering Physician: Eyad Garcia M.D. Date of Service: 01/12/25 Procedure(s): CT head/brain wo con Accession Number(s): [id number] cc: Eyad Garcia M.D.; Dorinda Washington D.O.~ For Patients: As a result of the Cures Act, medical imaging exams and procedure reports are released immediately into your electronic medical record. You may view this report before your referring provider. If you have questions, please contact your health care provider. INDICATION: Fall patient on blood thinners TECHNIQUE: CT head without contrast. COMPARISON: MRI brain October 2023 FINDINGS: No acute infarct or intracranial hemorrhage. No abnormal extra-axial fluid collection. Multiple small chronic cortical infarction in the left frontal and parietal lobe. Small chronic lacunar infarct in left mahajan radiata. Mild parenchymal atrophy. Scattered white matter hypodensities are nonspecific and are likely related to chronic microvascular ischemic changes. Skull base and calvarium: The visualized paranasal sinuses and mastoid air cells demonstrate no acute or significant findings. The visualized orbits are grossly unremarkable. No skull fractures. IMPRESSION: Chronic changes without acute intracranial abnormality. Please note that all CT scans at this facility use dose modulation, iterative reconstruction, and/or weight-based dosing when appropriate to reduce radiation dose to as low as reasonably achievable. Dictated by Anika Kate MD @ 01/12/2025 3:02:45 PM (Electronically Signed) Ordering Physician: Zenobia Mccartney M.D. Date of Service: 01/12/25 Procedure(s): CT chest abdomen pelv w con Accession Number(s): [id number] cc: Zenobia Mccartney M.D.; Dorinda Washington D.O.~ For Patients: As a result of the Cures Act, medical imaging exams and procedure reports are released immediately into your electronic medical record. You may view this report before your referring provider. If you have questions, please contact your health care provider. Indication: Tachypnea, cough, pneumonia, elevated LFTs, left lower lobe neoplasm Technique: Postcontrast CT of the chest, abdomen, and pelvis with multiplanar reformats following 97 mL Isovue 370 IV. Comparison: Multiple CTs of the chest, most recently 12/07/2024 Findings: Chest: Lungs: Within the area of treated malignancy in the left lower lobe, there is significant increase in size of soft tissue which now measures 6.8 x 6.2 centimeters with areas of internal gas which could represent developing cavitation. New [id number]-[id number] left pleural effusion with areas of fluid loculation. Bibasilar scarring and/or atelectasis. No pneumothorax. Mediastinum: No acute abnormality appreciated. Lymph nodes: Suspected enlargement left hilar node measuring 12 millimeters. Soft tissues: No acute abnormality appreciated. Bones: No acute abnormality appreciated. Right shoulder replacement. Degenerative changes of the spine. Abdomen and Pelvis: Hepatobiliary: No significant parenchymal abnormality is appreciated. Cholelithiasis. Spleen: Unremarkable. Pancreas: No acute abnormality appreciated. Adrenal glands: No acute abnormality appreciated. Kidneys: Nonobstructing renal stones. No hydronephrosis. No acute parenchymal abnormality appreciated. Bowel: No obstruction. Multifocal areas of colonic wall thickening and mild adjacent stranding greatest in the sigmoid colon. The appendix is visualized and appears unremarkable. Vascular: No acute abnormality appreciated. Calcified and noncalcified atherosclerosis. Mild infrarenal abdominal aortic ectasia. Lymph nodes: No gross lymphadenopathy. Peritoneum: No free air. No free fluid. : No acute abnormality appreciated. Soft tissues: No acute abnormality appreciated. Fat containing left inguinal hernia. Right inguinal hernia contains a short segment of small bowel without convincing evidence of incarceration/strangulation at this time. Bones: No acute fracture. No lytic or blastic lesion. Right hip replacement. Degenerative changes of the spine and pelvis. Impression: 1. Within the area of the known previously treated malignancy in the left lower lobe, there is significant increase in size of soft tissue along with a new small to moderate and partially loculated left pleural effusion and suspected increasing left hilar lymphadenopathy. Differential would include disease progression, aggressive appearing postradiation change/necrosis, and infection. 2. Multifocal areas of mild bowel wall thickening and slight adjacent stranding greatest along the sigmoid colon suspicious for mild multifocal colitis. 3. Nonobstructing renal stones. 4. Cholelithiasis. Please note that all CT scans at this facility use dose modulation, iterative reconstruction, and/or weight-based dosing when appropriate to reduce radiation dose to as low as reasonably achievable. Dictated by Smith Ludwig MD @ 01/12/2025 10:21:48 PM (Electronically Signed) Ordering Physician: Debi RAMON Date of Service: 01/14/25 Procedure(s): CT angio chest PE protocol Accession Number(s): [id number] cc: Debi RAMON; Dorinda Washington D.O.~ For Patients: As a result of the 21st Century Cures Act, medical imaging exams and procedure reports are released immediately into your electronic medical record. You may view this report before your referring provider. If you have questions, please contact your health care provider. INDICATION: Tachycardia, D-dimer, rule out PE, history of lung cancer. TECHNIQUE: CT chest angio was acquired with 95 cc Isovue 370 IV contrast. Images and 3D Angiographic MIP reconstructions are obtained COMPARISON: CT chest December 07, 2024 FINDINGS: Heart and vasculature: Contrast opacification of the pulmonary arterial tree is adequate. No sign of pulmonary embolism. Heart size is normal. Thoracic aorta and pulmonary artery are normal in caliber. Coronary artery calcification. Lungs and pleura: Known case of squamous cell carcinoma of left lower lobe, status post radiation. The mass measures about 5.4 x 4.9 cm on coronal plane. Encasement and mild narrowing of the left lower lobe segmental bronchi are similar to previous exam. There is new moderate partially loculated left pleural effusion. Loculated effusion is also present along oblique fissure. Patchy ground-glass opacities and interlobular septal thickening is identified, most pronounced in the lower lobe. Difficult assessment of the another solid nodule at the left lower lobe given the presence of pleural effusion. Mild right basilar atelectasis and dependent ground-glass opacities. No right effusion or pneumothorax. Lymph nodes/mediastinum: Few subcentimeter sized mediastinal lymph nodes. Prominent bilateral hilar lymph nodes are also identified, largest on the right side measures 18 x 15 mm, increased in size in comparison to previous CT from August 2024. On the left side it measures 17 x 17 mm. Mm, Chest wall: No masses. Upper abdomen: Cholelithiasis. Otherwise, no acute abnormality. Bones: Multilevel degenerative changes of the spine. No concerning bony lesion. IMPRESSION: 1. No pulmonary embolism. 2. Known case of Left lower lobe squamous cell carcinoma, status post radiation. 3. New moderate partially loculated left Pleural effusion, which obscures left lower lobe solid nodule. 4. Enlarged bilateral hilar lymph nodes, likely reactive. Although metastasis can not be excluded. Please note that all CT scans at this facility use dose modulation, iterative reconstruction, and/or weight-based dosing when appropriate to reduce radiation dose to as low as reasonably achievable. Dictated by Anika Kate MD @ 01/14/2025 11:48:03 AM (Electronically Signed) Discharge Plan Discharge Disposition: Xfer SNF Date of Admission: 01/16/25 10:51 Attending Provider on Discharge: Renae Mendes Primary Care Provider: Dorinda Washington Condition: Unchanged Anticipated Discharge Date/Time: 01/18/25 10:30 Discharge Medications: New insulin aspart U-100 100 unit/mL (3 mL) Insulin Pen See Rx Instructions .ROUTE .COMPLEX Qty: 15 0RF Rx Instructions: Blood Glucose 150 or less No coverage Blood Glucose 151-200 1 unit Blood Glucose 201-250 2 units Blood Glucose 251-300 3 units Blood Glucose 301-350 4 units Blood Glucose 351 to 400 5 units Blood Glucose 401 and greater 6 units and recheck in 2 hours furosemide 20 mg tablet 20 mg PO DAILY 3 Days Qty: 3 0RF Continued atorvastatin 80 mg tablet 80 mg PO HS allopurinol 100 mg tablet 100 mg PO DAILY amitriptyline 10 mg tablet 10 mg PO HS amlodipine 10 mg tablet 10 mg PO DAILY naloxone 4 mg/actuation spray,non-aerosol 1 spray INTRANASAL .PRN PRN Patient Comments: [NO ORIGINAL SIG] glipizide 10 mg tablet extended release 24hr 20 mg PO DAILY metformin 500 mg tablet 500 mg PO BID cefdinir 300 mg capsule 300 mg PO BID 4 Days Qty: 8 0RF hydrocodone-acetaminophen 5-325 mg tablet 1 tab PO BID PRN (Reason: pain) Qty: 10 0RF Eliquis 5 mg tablet 5 mg PO BID lisinopril 10 mg tablet 10 mg PO DAILY polyethylene glycol 3350 17 gram/dose powder 17 g PO DAILY Januvia 50 mg tablet 50 mg PO DAILY Discontinued azithromycin [Zithromax] 250 mg tablet 250 mg PO DAILY 2 Days Qty: 2 0RF Rx Instructions: If dose pack, start on day 4 of therapy. Discharge Orders: Discharge Order (Routine); Ordered 01/18/25 Ordered By: Renae Mendes Activity Level: Up with assist and Use Walker Discharge Diet: Diabetic Follow Up Appointments: Dorinda Washington DO [Primary Care Provider, Family Practice] Referral Note: f/u with Dr. Washington or [place] provider in 1 week Forms: [facility] Info Instructions Admit to: SNF Discharge Potential: Fair Length of Stay: <30 days Can use facility standing orders?: Yes Code Status: DNR/DNI TEDs: Bilateral Knee Rehab Potential: Fair Therapy: Physical Therapy and Occupational Therapy Therapy Orders: Evaluate and Treat Oxygen: No Urinary Catheter: No Glucose Checks: ACHS Lab Orders: BMP one week Orders are good >30 days: No Signature: Renae Mendes MD
--- NOTE | 2025-01-18 09:55 | PC.SOCIAL ---
Discharge planning: Called pt's , Gracia, and shared the team recommendation for transport in EMS due to risk of fall if he goes in a car. is fully in agreement with this plan and aware and agrees to pay privately for the cost of EMS transport. Estimate given to was around $250. requested clinical social work therapist share recommendation for EMS with pt so that he is hears this from staff instead of . Met with pt who is aware and agrees with this recommendation. will be at the hospital at 11:00 and EMS is also scheduled at 11:00. renal social worker to follow up as needed.
--- NOTE | 2025-01-18 11:14 | PC.NURSE ---
Addendum entered by Karin Currie RN 01/18/25 12:25: Addendum : RN provided nurse to nurse to [facility] @1136 01/18/2025 Original Note: Discharge - Pt alert and oriented x4. Pt pleasant but not cooperative to cares. Pt able to ambulate to bathroom with x1 assistance and walker/gait belt, however pt noted to be impulsive and d/c use of walker during ambulation. Pt refused breakfast, moving from bed to chair, and some medications. RN attempted to re-approach, pt continued to refuse stating he was leaving today. Pt tolerating RA, refusing meals during shift. Pt reported pain in bilateral feet as 6/10 and soreness in L ribs as 4/10 worsened by coughing. Medication given per MAR at pt request. IV removed with catheter intact. D/C documentation and pt medication given to EMS crew at transport. RN attempted to contact [facility] in [place] for nurse to nurse report. RN called [phone] (provided by JUANJOSE), (provided by JUANJOSE), and [phone] (from [facility] website) with no answer and no ability to leave a message. Charge nurse and SW aware. Pt d/c'd to [facility] via non-emergent EMS at approximately 1100.
--- NOTE | 2025-01-18 14:23 | REH.OT ---
OT: Patient discharged to [facility] for TCU stay prior to OT today. He seen during recent hospitalization and TCU had been recommended at that time.
== END 2025-01-18 11:00 ==
LOC: ED 10:40 → MEDSURG 10:59
PROVIDERS: Admitting Provider Family Medicine; Emergency Provider Family Medicine; PCP Family Medicine; Visit Provider Family Medicine
DX: J18.9 Pneumonia, unspecified organism (principal); Z72.0 Tobacco use; E11.9 Type 2 diabetes mellitus without complications; E87.1 Hypo-osmolality and hyponatremia; R53.81 Other malaise; R60.0 Localized edema; C34.92 Malignant neoplasm of unspecified part of left bronchus or lung; Z86.73 Personal history of transient ischemic attack (TIA), and cerebral infarction without residual deficits
CPT/HCPCS: 36415; 80048; 81001; 82962; 85025; 87086; 87493; 97161; 99284; 99285; A9270; G0378

== ENCOUNTER 2025-01-18 10:55 | Outpatient (CLI) | payer MEDICARE, BC, SELFPAY | END 2025-01-18 10:56 | disposition home or self-care (01) | LOC: AMB 01-27 18:40 | PROVIDERS: PCP Family Medicine; Visit Provider Student in an Organized Health Care Education/Training Program | DX: R53.1 Weakness (principal); J18.9 Pneumonia, unspecified organism | CPT/HCPCS: A0425; A0428 ==

== ENCOUNTER 2025-01-26 14:48 | Inpatient (IN) | payer MEDICARE, BC, SELFPAY ==
--- OUTSIDE RECORDS SUMMARY | 2024-09-28 05:30 | XMS_ITS | Continuity of Care Document ---
Author Organization [facility] Address [address] [place] [address] Phone Care Team Providers Care Financial Services Rep Name Role Phone Der Benson MD Unavailable Unavailable Allergies, Adverse Reactions, [...] Amphetamine 13:44:00 0 ng/mL <100 Final Performed by:[facility] [place] ([facility]) Methamphetamine 13:44:00 0 ng/mL <300 Final Performed by:[facility] [place] ([facility]) 7-Aminoclonazepam 13:44:00 0 ng/mL <50 Final Performed by:[facility] [place] ([facility]) Alpha-Hydroxyalpraz olam 13:44:00 0 ng/mL <50 Final Performed by:[facility] [place] ([facility]) Lorazepam 13:44:00 0 ng/mL <50 Final Performed by:[facility] [place] ([facility]) Nordiazepam 13:44:00 0 ng/mL <50 Final Performed by:[facility] [place] ([facility]) Oxazepam 13:44:00 0 ng/mL <25 Final Performed by:[facility] [place] ([facility]) Temazepam 13:44:00 0 ng/mL <50 Final Performed by:[facility] [place] ([facility]) Buprenorphine 13:44:00 0 ng/mL <10 Final Performed by:[facility] [place] ([facility]) Norbuprenorphine 13:44:00 0 ng/mL <20 Final Performed by:[facility] [place] ([facility]) Benzoylecgonine (SEBASTIEN Metabolite) 13:44:00 0 ng/mL <50 Final Performed by:[facility] [place] ([facility]) Fentanyl 13:44:00 0 ng/mL <1 Final Performed by:[facility] [place] ([facility]) Norfentanyl 13:44:00 0 ng/mL <4 Final Performed by:[facility] [place] ([facility]) Gabapentin 13:44:00 0 ng/mL <500 Final Performed by:[facility] [place] ([facility]) 6-acetylmorphine 13:44:00 0 ng/mL <10 Final Performed by:[facility] [place] ([facility]) Ketamine 13:44:00 0 ng/mL <50 Final Performed by:[facility] [place] ([facility]) EDDP 13:44:00 0 ng/mL <50 Final Performed by:[facility] [place] ([facility]) Methadone 13:44:00 0 ng/mL <100 Final Performed by:[facility] [place] ([facility]) MDA 13:44:00 0 ng/mL <100 Final Performed by:[facility] [place] ([facility]) MDMA (Ecstacy) 13:44:00 0 ng/mL <100 Final Performed by:[facility] [place] ([facility]) Methylphenidate 13:44:00 0 ng/mL <50 Final Performed by:[facility] [place] ([facility]) Codeine 13:44:00 0 ng/mL <50 Final Performed by:[facility] [place] ([facility]) Hydrocodone 13:44:00 297 ng/mL <50 H Final Performed by:[facility] [place] ([facility]) Hydromorphone 13:44:00 84 ng/mL <50 H Final Performed by:[facility] [place] ([facility]) Morphine 13:44:00 0 ng/mL <50 Final Performed by:[facility] [place] ([facility]) Norhydrocodone 13:44:00 307 ng/mL <50 H Final Performed by:[facility] [place] ([facility]) Naloxone 13:44:00 0 ng/mL <20 Final Performed by:[facility] [place] ([facility]) Oxycodone 13:44:00 0 ng/mL <50 Final Performed by:[facility] [place] ([facility]) Oxymorphone 13:44:00 0 ng/mL <50 Final Performed by:[facility] [place] ([facility]) Noroxycodone 13:44:00 0 ng/mL <50 Final Performed by:[facility] [place] ([facility]) Phencyclidine 13:44:00 0 ng/mL <10 Final Performed by:[facility] [place] ([facility]) Pregabalin 13:44:00 0 ng/mL <200 Final Performed by:[facility] [place] ([facility]) Carisoprodol 13:44:00 0 ng/mL <50 Final Performed by:[facility] [place] ([facility]) Meprobamate 13:44:00 0 ng/mL <100 Final Performed by:[facility] [place] ([facility]) THC-COOH (Marijuana) 13:44:00 0 ng/mL <50 Final Performed by:[facility] [place] ([facility]) Zolpidem 13:44:00 0 ng/mL <20 Final Performed by:[facility] [place] ([facility]) Tapentadol 13:44:00 0 ng/mL <25 Final Performed by:[facility] [place] ([facility]) Tramadol 13:44:00 0 ng/mL <50 Final Performed by:[facility] [place] ([facility]) Panel Description: NORCO Final Image [facility] Lab Result 1 Panel Description: Point Of Care Testing (with T HC) Final POCT-Opiates neg Final POCT Amphetamine neg ng/mL Final POCT-Methamphetamin e neg Final POCT-Cocaine neg Final POCT-Marijuana neg Final POCT-Creatinine wnl Final POCT-Specific [place] wnl Final Recollection? no Final POCT-Temperature 90 [...] on Encounter New Pt Eval Moderate Hema, [facility], [address], [place], [place], [id number], [place] tel:[phone] [facility] foot pain (chief complaint)s houlder pain (chief complaint) Type II DM w/ diabetic neuropathyBody mass index (BMI) 27.0-27.9, adult 5 Marcelino Erickson. [address], [facility] [place], [id number], [place]. tel:[phone] Referring Provider: Dre Benson, [address], [place], [address] . tel:[phone] [facility], [address], [place], [place], [id number], [place] tel:[phone] [facility] No Information 5 Marcelino Erickson. [address], [place], [place], [address], [place]. tel:[phone] Referring Provider: Dre Benson, [address], [place], [address] . tel:[phone] Family History Family Member Type Diagnosis Age At Onset No Information Payers Payer name Insurance type Covered alliance party ID Authorgokula titerell(s) Medicare Part B MB [id number] Blue Cross Medicare 16 [id number] Social History Type Description Quantity Date Captured [...] Date Complaint History Of Prese nt Illness shoulder pain The pain is loca [place]aro in the right shoulder. Pain intensity is currently 0/10.The pain is described as aching. The following activities make the pain worse: movement. The following activities make the pain better: pain medication. Additional information: OA. foot pain The pain is loca karo in the both feet. Pain intensity is currently 5/10.The pain is described as burning. The following activities make the pain worse: daily activity. The following activities make the pain better: pain medication. Functional Status Date Functional Assessmen t No Information Instructions Date Instruction Additional Infor mitch - Prescribed Quinby 5 -325mg 2x/day* Discuss this prescription with [...] medication refill as needed in November* Consider [facility] for continued medication only pain management.- [...] followed for care of this pain through [facility] who have provided Quinby 5-325mg BID with good relief as well as trialed gabapentin and pregabalin with poor tolerance and brain fog as well as amitriptyline with minimal relief. He also continues with outside PT with good relief through [facility].As [facility] is closing, he is looking for another clinic to take over his Rx medication management.We discussed a multidisciplinary approach to pain management, and we discussed the use of injections and SCS for continued pain management. I recommend trialling SCS, though he would like to hold on any interventions for pain management. I prescribed Quinby 5-325mg BID, and as his Rx is [...] Mental Status Date Cognitive Assessment Orientation - [place] ed to time, place, person, situation. Patient Care Teams Name Effective Dates (start - stop) Status Members No Information
[2025-01-26] VITALS (9 sets, daily range): BP systolic 86–124; BP diastolic 65–94; PULSE 91–129; RESP 18–20; TEMP 35.5–36.1; O2SAT 93–97; BMI 23.7; BMI 22.8; BMI 22.9
--- OUTSIDE RECORDS SUMMARY | 2025-01-26 14:51 | XMS_ITS | Clinical Summary ---
Author Organization [facility] Address [address] [place] [address] Care Team Providers Care Home Worker Name Role Phone Yousuf Bernard MD Primary Care Provider [phone] Allergies No known active allergies Medications meclizine [...] this topic Medical Devices Implanted Type Area Night Order Selector Device Identifier Shelf Expiration Date Model / Serial / Lot Polaris Ultra [id number] Implanted:Qty : 1 on 10/04/2022 by Abrahan Bower MD at [facility] Right: Ureter [facility] [id number] 08/01/2025 [id number] / / [id number] Polaris Ultra 5f X 28cm Implanted:Qty : 1 on 10/04/2022 by Abrahan Bower MD at [facility] Left: [employer]ter [employer] [place] [id number] 08/01/2025 [id number] / / [id number] Explanted Type Area Night Order Selector Device Identifier Shelf Expiration Date Model / Serial / Lot Polaris Ultra, 5f X28cm Implanted:Qty: 1 on 09/16/2022 by Abrahan Bower MD at [facility] Explanted:Qty: 1 on 10/04/2022 by Abrahan Bower MD at [facility] Left: U[employer]ter [employer] 05/22/2025 [id number] / / [id number] Polaris Ultra, 5f X28cm Implanted:Qty: 1 on 09/16/2022 by Abrahan Bower MD at [facility] Explanted:Qty: 1 on 10/04/2022 by Abrahan Bower MD at [facility] Right: [employer]ter [employer] 05/22/2025 [id number] / / [id number] Procedures Procedure Name Priority Date/Time Associated Diagnosis [...] Glucose by meter (10/04/2022 10:23 AM CDT) [facility] Signature GLUCOSE BY METER POCT 174(H) 70 - 99 mg/dL 10/04/2022 10:29 AM CDT LABORATORY POC Blood, Capillary BLOOD SPECIMEN / Unknown 10/04/2022 10:23 AM CDT 10/04/2022 10:29 AM CDT us Abrahan Bower MD LAB - BEAKER POCT Final Result RH LABORATORY [facility] Acute Care Lab [address] Lab (1st floor, no room number) [place] [address], [facility] [phone] * (ABNORMAL) Basic metabolic panel (09/18/2022 12:33 PM CDT) [facility] Sodium 139 136 - 145 mmol/L [...] BLOOD ORDERABLES Fin al Result RH LABORATORY [facility] Acute Care Lab [address] Lab (1st floor, no room number) [place] [address], [facility] [phone] * Lipid panel (07/12/2020 9:47 AM CDT) Cholesterol 163 <200 mg/dL 07/12/2020 11:10 AM CDT [facility] Triglycerides 126 <150 mg/dL 07/12/2020 11:05 AM CDT [facility] HDL Cholesterol 42 >39 mg/dL 11:05 AM CDT [facility] LDL Cholesterol Calculated 96 <100 mg/dL 07/12/2020 11:10 AM CDT [facility] Comment:Desirable: <100 mg/d l Non HDL Cholesterol 121 <130 mg/dL 07/12/2020 11:10 AM CDT [facility] Blood 07/12/2020 9:47 AM CDT 07/12/2020 10:33 AM CDT us Yousuf Bernard MD LAB - BLOOD ORDERABLES Final Re sult [facility] [address] [place] [place] [address], [facility] [phone] from Last 3 Months or Most Recently Relevant to Health Maintenance Insurance [facility] CHOICE [facility] CHOICE Advance Directives For more information, please contact: [phone] * Full Code (Latest Code Status on File) Date Activated Date Inactivated Comments 09/16/2022 2:18 AM 09/17/2022 2:28 PM All basic an d advanced life-sustaining interventions are performed as appropriate Question Answer Comments Code status determined by: Discussion with rebeka nt/ legal decision maker Care Teams Home Worker Relationship Specialty Start Date End Date Yousuf Bernard MD [facility] [address] [address] PCP - General Family Medicine 06/16/22
--- OUTSIDE RECORDS SUMMARY | 2025-01-26 14:51 | XMS_ITS | Clinical Summary ---
Author Organization [facility] Address [address], [place] [address] Care Team Providers Care Management Planner Name Role Phone Clinician, Not Found MD [...] for each transition of care or referral. [employer] Allergies No known active allergies Medications ONETOUCH [...] mouth daily. 90 Tablet 3 3 Active [place]-3 Fatty Acids (FISH OIL) 1000 MG capsule [...] Team Description 12/23/2024 Telephone Physiatry/Physical Medicine at [facility] [address] [place] [address] Han Bradley MD Progress Report (PT Progress [...] - 145 mmol/L 08/21/2022 6:[address] [facility] Potassium 4.5 3.5 - 5.1 mmol/L 08/21/2022 6:36 AM [facility] Chloride 112(H) 98 - 109 mmol/L 08/21/2022 6:36 AM [facility] CO2 20 20 - 29 mmol/L 08/21/2022 6:36 AM [facility] Anion Gap 9 7 - 16 mmol/L 08/21/2022 6:36 AM [facility] Calcium 9.0 8.4 - 10.4 mg/dL 08/21/2022 6:36 AM [facility] BUN 53(H) 7 - 26 mg/dL 08/21/2022 6:36 AM [facility] Creatinine 2.20(H) 0.73 - 1.18 mg/dL 08/21/2022 6:36 AM [facility] Glucose 102(H) 70 - 100 mg/dL 08/21/2022 6:36 AM [facility] Comment:The given reference range is for the fasting state. Non-fasting reference range for glucose is 70 - 180 mg/dL. GFR, Estimated 32(L) >60 mL/min/1.7 3m2 08/21/2022 6:36 AM [facility] Blood Venipuncture / Unknown 08/21/2022 5:51 AM CDT 08/21/2022 6:03 AM CDT us Machelle Gregg MD LAB_1 [place] [address], [facility] [phone] from Last 3 Months or Most Recently Relevant to Health Maintenance Insurance MEDICARE [facility] MEDICARE SUPPLEMENT Advance Directives * Full Code (Latest Code Status on File) Date Activated Date Inactivated Comments 08/14/2022 2:54 PM 08/21/2022 12:21 PM Care Teams Management Planner Relationship Specialty Start Date End Date Clinician, Not Found, [facility] [place] [address] PCP - General 12/11/20
--- OUTSIDE RECORDS SUMMARY | 2025-01-26 14:51 | XMS_ITS | Encounter Summary ---
Author Organization [facility] Address [address] [place] [address] Care Team Providers Care Hvac Sheet Metal Installer Helper Name Role Phone Unavailable Primary Care Provider Unavailabl e Encounter Details Date Type Department Care Team (Late st Contact Info) Description 12/28/2024 Clinical Communication Department of Radiation Oncology in [place], [place] [address] [place] [phone] Kev Hoffmann M.D. [address] [place] [address] Social History Tobacco Use Types Packs/Day Years Used Date Smoking Tobacco: Every Day Cigarettes 0.8 51.9 Started: 1975 Smokeless Tobacco: Never Alcohol Use Standard Drinks/Week Comments Yes 0 (1 standard drink = 0.6 oz pur e alcohol) 2 drinks/month [facility] Utilities Answer Date Recorded In the past 12 months has e [employer], gas, oil, or water [employer] threatened to shut off services in your [...] your living situation today? I have a [facility] place to live 07/28/2023 Sex and Gender Information Value Date Recorded Sex Assigned at Male 07/28/2023 10:23 AM CDT Legal Sex Male 7:57 AM ASSIGNMENT OFFICER Gender Identity Male 07/28/2023 10:23 AM CDT [...] PET scan that is currently scheduled at [facility] for 12/30. She has rescheduled the scan [...] and communicate the results sooner. Please advise. GNMENT OFFICER documented in this encounter Plan of Treatment Upcoming Encounters Date Type Department Care Team (Late st Contact Info) Description 02/02/2025 1:30 PM ASSIGNMENT OFFICER Appointment Department of Radiation Oncology in [place], [place] [address] [place] [address] Kev Hoffmann M.D. [address] [place] [address] documented as of this encounter Visit Diagnoses Not on filedocumented in this encounter
--- OUTSIDE RECORDS SUMMARY | 2025-01-26 14:51 | XMS_ITS | Clinical Summary ---
Author Organization [facility] Address [address] [place] [address] Care Team Providers Care Import And Export Clerk Name Role Phone Unavailable Primary Care Provider Unavailabl e Source Comments Patient records contain information from all sites at [facility]. For routine questions regarding patient records, call [phone] during business hours, M-F 8:00 AM - 5:00 PM Central Time. Record requests for emergency care only can be directed to [phone] at any time.[facility] Allergies No known active allergies Medications amitriptyline [...] Clinical Communication Department of Radiation Oncology in [place], [place] [address] [place] [address] Kev Hoffmann M.D. 12/10/2024 1:30 PM CDT - 12/11/2024 3:15 PM CDT Hospital Encounter Department of Radiation Oncology in [place], [place] [address] [place] [address] Kev Hoffmann M.D. Malignant Neoplasm Of Lung [...] 0.6 oz pur e alcohol) 2 drinks/month [facility] Utilities Answer Date Recorded In the [...] AM CDT Legal Sex Male 7:57 AM TIRE CENTER MANAGER Gender Identity Male 07/28/2023 10:23 AM CDT Sexual Orientation Not on file Last Filed Vital Signs Vital Sign Reading Time Taken Comments Blood Pressure 148/90 12/10/2024 1:33 PM CDT Pulse 103 12/10/2024 1:33 PM CDT Temperature 36.4 C (97.6 F) 12/10/2024 1:33 PM CDT Respiratory Rate 20 04/14/2011 6:10 PM TIRE CENTER MANAGER Oxygen Saturation - - Inhaled Oxygen Concentration - - Weight 98.6 kg (217 lb 6 oz) 12/10/2024 1:33 PM CDT Height - - Body Mass Index - - Plan of Treatment Upcoming Encounters Date Type Department Care Team (Late st Contact Info) Description 02/02/2025 1:30 PM TIRE CENTER MANAGER Appointment Department of Radiation Oncology in [place] [address] [place] [address] Kev Hoffmann M.D. [address] [place] [address] Health Maintenance Due Date Last Done Comments [...] OUTSIDE CT BODY Routine 01/12/2025 9:00 PM TIRE CENTER MANAGER OUTSIDE CT NEURO Routine 01/12/2025 2:35 PM TIRE CENTER MANAGER OUTSIDE DX CHEST Routine 01/12/2025 2:35 PM TIRE CENTER MANAGER OUTSIDE CT BODY Routine 12/06/2024 10:20 AM CDT HXZZORDERS Routine 08/14/2011 2:46 PM CDT HEPATITIS B SURFACE ANTIGEN Routine 08/14/2011 2:[address] ABDOMEN WITHOUT IV CONTRAST Routine 07/27/2006 4:40 AM CDT from Last 3 Months or Most Recently Relevant to Health Maintenance Results * CT chest abdomen pelv w con-Outside CT Body (01/12/2025 9:00 PM TIRE CENTER MANAGER) Only the most recent of2 resultswithin the time period is included. Narrative [facility] - 01/14/2025 10:02 AM TIRE CENTER MANAGER This order has been created and auto-finalized [...] WO CON-Outside CT Neuro (01/12/2025 2:35 PM TIRE CENTER MANAGER) Narrative [facility] - 01/14/2025 9:58 AM TIRE CENTER MANAGER This order has been created and auto-finalized [...] PROCEDURES Final R esult Performing Organization Address [facility] de Phone Number II NA * XR chest 2V-Outside Chest Xray (01/12/2025 2:35 PM TIRE CENTER MANAGER) Narrative [facility] - 01/14/2025 9:55 AM TIRE CENTER MANAGER This order has been created and auto-finalized to support the import of outside images. If available, original interpretation can be found on the Media Tab in Chart Review, in Document Viewer, as an image in InfinityView or as an Addendum. If a re-interpretation or overread is required please follow defined workflow. us Provider Not In System IMG DIAGNOSTIC IMAGING SD OCEDURES Final Result Performing Organization Address [facility] de Phone Number II NA * HXZZORDERS (08/14/2011 2:46 PM CDT) HXHep C Ab-[place] Negative Negative POWERCHART Comment: Oxvwvj-wi-lhessq ratio is <1.00. Test Performed by: [place] [address] Supervisor Fabrication And Assembly: Octavio Harris III, M.D. Blood 08/14/2011 2:46 PM CDT Maria E QuintanaC. LAB HISTORICAL ORDERS Fi nal Result Performing Organization Address [facility] de Phone Number POWERCHART * Hepatitis B Surface Antigen (08/14/2011 2:46 PM CDT) Interpretation Negative POWERCHART Blood 08/14/2011 2:46 PM CDT Mraia E DelgadoA.-C. LAB MICROBIOLOGY - BLOOD ORDERABLES Final Result Performing Organization Address [facility] de Phone Number POWERCHART * CT Abdomen without IV Contrast (07/27/2006 4:40 AM CDT) Anatomical Region Laterality Modality Abdomen N/A Computed Tomogra phy 07/27/2006 4:40 AM CDT Narrative 07/27/2006 4:40 AM CDT Originally Signed By Contributor_system [facility] INDICATION: Right abdominal back pain. CT [...] [place] - 07/31/2016 Originally Signed By Contributor_system [facility] INDICATION: Right abdominal back pain. CT [...] Recently Relevant to Health Maintenance Insurance MEDICARE [facility]
--- OUTSIDE RECORDS SUMMARY | 2025-01-26 14:51 | XMS_ITS | Clinical Summary ---
Author Organization [facility] Address [address], [place] [address] Phone Care Team Providers Care Carton Wrapper Name Role Phone Yousuf Bernard MD Primary Care Provider [phone] Allergies No known active allergies Medications amLODIPine [...] Comments Blood Pressure 113/74 01/07/2023 3:22 PM TEENAGE PROGRAM DIRECTOR Pulse 80 01/07/2023 3:22 PM TEENAGE PROGRAM DIRECTOR Temperature 36.3 C (97.4 F) 01/07/2023 3:22 PM TEENAGE PROGRAM DIRECTOR Respiratory Rate 20 09/23/2022 2:15 PM CDT Oxygen Saturation 97% 01/07/2023 3:22 PM TEENAGE PROGRAM DIRECTOR Inhaled Oxygen Concentration - - Weight 111 kg (244 lb 3.2 oz) 01/07/2023 3:22 PM TEENAGE PROGRAM DIRECTOR Height 195.6 cm (6' 5) 01/07/2023 3:22 PM TEENAGE PROGRAM DIRECTOR Body Mass Index 28.96 01/07/2023 3:22 PM TEENAGE PROGRAM DIRECTOR Plan of Treatment Health Maintenance Due Date [...] INTERFACED INSURANCE PM INTERFACED INSURANCE Care Teams Carton Wrapper Relationship Specialty Start Date End Date Yousuf Bernard MD [address] [place] [address] PCP - General 02/14/23
--- OUTSIDE RECORDS SUMMARY | 2025-01-26 14:51 | XMS_ITS | Encounter Summary ---
Author Organization [facility] Address [address], [place] [address] Phone Care Team Providers Care Sand Molder Name Role Phone Yousuf Bernard MD Primary Care Provider [phone] Reason for Visit * Reason Comments Med Refill Encounter Details Date Type Department Care Team (Late st Contact Info) Description 10/22/2023 [facility] [address] [facility] [place], [place] [address] Jin Shipley MD [address] [facility] [address] [place], [place] [address] Social History Tobacco Use Types Packs/Day Years [...] on filedocumented in this encounter Care Teams Sand Molder Relationship Specialty Start Date End Date Yousuf Bernard MD [address] [place] [address] PCP - General 02/14/23 documented as of this encounter
--- OUTSIDE RECORDS SUMMARY | 2025-01-26 14:51 | XMS_ITS | Encounter Summary ---
Author Organization [facility] Address [address], [place] [address] Care Team Providers Care Nitric Acid Plant Operator Name Role Phone Clinician, Not Found MD Primary Care Provider Un available Reason for Visit * Reason Comments Progress Report PT Progress 12/22/24 Encounter Details Date Type Department Care Team (Late st Contact Info) Description 12/23/2024 Telephone Physiatry/Physical Medicine at [facility] [address] [facility] [place], [place] [phone] Han Bradley MD [address] [place], [place] [address] Progress Report (PT Progress 12/22/24) Social History [...] - 12/27/2024 2:33 PM CST Received from OR to do bin. Faxed to [facility] at [phone]. Confirmation received. Form sent to scanning. Thanks. Melecio Rahman 12/27/2024, 2:33 PM RNATIONAL FIRST OFFICER * Machelle Irene CMA - 12/24/2024 8:28 AM CDT Provider has signed the form/document or completed request below. Please fax or send as requested. Placed in OR to do. Machelle Ascencio CMA ([facility]), 12/24/2024 8:28 AM * Melecio Rahman - 12/23/2024 1:22 PM CDT Received a fax from [facility] PT Progress evaluation from 12/22/24 Requesting signature. Fax is in provider right fax folder to sign. Melecio Rahman 12/23/2024, 1:22 PM documented in this encounter Plan of Treatment Not on file documented as of this encounter Visit Diagnoses Not on filedocumented in this encounter Care Teams Nitric Acid Plant Operator Relationship Specialty Start Date End Date Clinician, Not Found, [facility] [place] [address] PCP - General 12/11/20 documented as of this encounter
--- OUTSIDE RECORDS SUMMARY | 2025-01-26 14:51 | XMS_ITS ---
Author Organization [facility] rvices Support Name Relationship Address Phone Chato He Guarantor [address] [place] [address] Unavailable Chato He Agent [address] [place] [address] Unavailable Chato He Next of Kin [address] [place] [address] Unavailable Insurance Providers Coverage Status Coverage Type Relationship to Subscriber Member Identifier Subscriber Identifier Group Identifier Payer Identifier and Other information Code: 349 Code System OID:2.16.840 .[id number]. 221.5 Code System Name: Source of Payment Typology (PHDSC) Display: Other Translation: Code: C1 Code System: OID:2.16.840 .[id number]. 255.1336 Code System Name: Insurance Type Code ([id number]) Display Name: Commercial Insurance Reason for Referral No Reasons for Referral Entered Social History Social History Observation Description Start Date End Date Code Code System Current Smoking Status Tobacco smoking consumption unknown [id number] SNOMED CT Sex Assigned At Male 1955 [address] Gender Identity Sexual Orientation
--- OUTSIDE RECORDS SUMMARY | 2025-01-26 14:51 | XMS_ITS | Encounter Summary ---
Author Organization [facility] Address [address] [place] [address]. [place] [address] Care Team Providers Care Product Safety Professional Name Role Phone Yousuf Bernard MD Primary Care Provider [phone] Abrahan Bower MD Unavailable [phone] Encounter Details Date Type Department Care Team (Late st Contact Info) Description 09/25/2022 [facility] [address] [place] [address] Hina Lujan Social History Tobacco [...] filedocumented in this encounter Care Teams Product Safety Professional Relationship Specialty Start Date End Date Yousuf Bernard MD [facility] [address] [address] PCP - General Family Medicine 06/16/22 Abrahan Bower MD [address] [place] [address] [place] [address] Assigned Surgical Provider 10/12/22 documented as of this encounter
--- OUTSIDE RECORDS SUMMARY | 2025-01-26 14:51 | XMS_ITS | Clinical Summary ---
Author Organization [facility] Address [address] [address] Phone Care Team Providers Care Industrial Hygienist Name Role Phone Unavailable Primary Care Provider Unavailabl e Allergies No known active allergies Medications amLODIPine (Norvasc) 10 MG tablet 3 Active lisinopril (Prinivil, Zestril) 40 MG tablet TAKE ONE TABLET BY MOUTH EVERY DAY FOR HYPERTENSION 3 Active meclizine (Antivert) 25 MG tablet TAKE 1 TABLET (25 MG) BY MOUTH 3 TIMES DAILY NEEDED FOR DIZZINESS 3 Active HYDROcodone-ac etaminophen ([place]) 5-325 MG oral tablet Take 0.5-1 Tablets [...] W/POSSIBLE INTERVENTION; Surgeon: Durga Fernandez MBBS; Location: [facility] Social History Tobacco [...] BASIC METABOLIC PANEL (08/05/2022 3:59 AM CDT) [facility] Signature Sodium 140 134 - 143 mEq/L 08/05/2022 4:22 AM CDT [facility] Potassium 4.4 3.4 - 5.1 mEq/L 08/05/2022 4:22 AM CDT [facility] Chloride 112(H) 99 - 110 mEq/L 08/05/2022 4:22 AM CDT [facility] Carbon Dioxide 21 19 - 29 mEq/L 08/05/2022 4:22 AM CDT [facility] Anion Gap 7.0 3.0 - 15.0 mEq/L 08/05/2022 4:22 AM CDT [facility] Blood Urea Nitrogen 28(H) 5 - 24 mg/dL 08/05/2022 4:22 AM CDT [facility] Creatinine 1.74(H) 0.70 - 1.20 mg/dL 08/05/2022 4:22 AM CDT [facility] Glomerular Filtration Rate 42(L) >60 mL/min/1. 73 m*2 08/05/2022 4:22 AM CDT [facility] Comment:Risk of cardiovascul ar disease increases when GFR is abnormal; persistently reduced GFR values are a specific indication of CKD. This calculation uses CKD- EPI 2020 equation without adjustment for race; it has not been validated in women. Calcium 9.3 8.4 - 10.5 mg/dL 08/05/2022 4:22 AM CDT [facility] Glucose 203(H) 70 - 99 mg/dL 08/05/2022 4:22 AM CDT [facility] Blood BLOOD SPECIMEN / Unknown Venipuncture / Unknown 08/05/2022 3:59 AM CDT 08/05/2022 4:02 AM CDT Narrative [facility] - 08/05/2022 4:22 AM CDT Current ADA criteria for Glucose: Normal: 70-99 mg/dL Impaired Fasting Glucose: 100-125 mg/dL Diabetes Mellitus: at or above 126 mg/dL The diagnosis of diabetes must be confirmed on a subsequent day by measuring Fasting Plasma Glucose, 2-hr PG or random plasma glucose (if symptoms are present). us Wes Miller MD EC CHEMISTRY ORDERABLES F inal Result [facility] [address] [place] [address], [facility] * (ABNORMAL) HEMOGLOBIN A1C (2022 3:59 AM CDT) Hemoglobin A1c 7.7(H) 4.0 - 5.6 % 2022 4:23 AM CDT [facility] Estimated Average Glucose 174 mg/dL 2022 4:23 AM CDT [facility] Blood BLOOD SPECIMEN / Unknown Venipuncture / Unknown 2022 3:59 AM CDT 2022 4:07 AM CDT Narrative [facility] - 2022 4:23 AM CDT HGA1C Reference Ranges >= 6.5 Diabetes* 5.7-6.4 Impaired glucose tolerance <5.7 Normal *In the absence of unequivocal hyperglycemia, results should be confirmed by repeat testing for the diagnosis of diabetes. [employer] 2018 us Herman Snow DO CHEMISTRY ORDERABLES AB N Final Result Performing Organization Address City/State/[facility] Co de Phone Number [facility] [address] [place], [place] [address] * (ABNORMAL) LIPID PANEL (2022 3:59 AM CDT) Cholesterol 186 0 - 200 mg/dL 2022 4:29 AM CDT [facility] HDL Cholesterol 40(L) >40 mg/dL 4:29 AM CDT [facility] Non-HDL Cholesterol 146(H) 0 - 130 mg/dL 2022 4:29 AM CDT [facility] Triglycerides 164 <175 mg/dL 2022 4:29 AM CDT [facility] LDL Cholesterol, Calculated 113(H) 0 - 100 mg/dL 2022 4:29 AM CDT [facility] Blood BLOOD SPECIMEN / Unknown Venipuncture / Unknown 2022 3:59 AM CDT 2022 4:15 AM CDT Narrative [facility] - 2022 4:29 AM [...] DO CHEMISTRY ORDERABLES AB N Final Result [facility] [address] [place] [address] from Last 3 Months or Most Recently Relevant to Health Maintenance Insurance [facility] MEDICARE PART A ONLY Advance Directives For more information, please contact: [phone] * Full Code (Latest Code Status on File) Date Activated Date Inactivated Comments 08/03/2022 4:23 PM 08/14/2022 3:22 PM * Full Code/Unaddressed Date Activated Date Inactivated Comments 08/03/2022 1:07 PM 08/03/2022 4:23 PM
--- NOTE | 2025-01-26 14:52 | ED.GENADULT ---
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 According to patient and he is staying at [facility] which is [facility], since being discharged from hospital, he has had ongoing generalized weakness, he has been laying in bed most of the time, denies any falls or injuries, still has some left lower rib pain where he had previous pneumonia, cough is improved, he feels that his breathing has been normal, no nausea vomiting, no abdominal pain, he did have an episode of diarrhea on route to the emergency department, unsure about any blood in the stool, he is currently on Eliquis. No fevers or chills, he has been eating and drinking less. Patient has been taking his scheduled medications. He was seen by a primary for post hospital follow-up, concerns for ongoing weakness, hypotension, he received 200 mL 0.9 normal saline prior to his arrival from [facility]. Related Data Home Medications ?Medication ?Instructions ?Recorded ?Confirmed allopurinol 100 mg tablet 100 mg PO DAILY 11/19/23 01/16/25 amitriptyline 10 mg tablet 10 mg PO HS 11/19/23 01/16/25 amlodipine 10 mg tablet 10 mg PO DAILY 11/19/23 01/16/25 atorvastatin 80 mg tablet 80 mg PO HS 11/19/23 01/16/25 glipizide 10 mg tablet, extended 20 mg PO DAILY 11/19/23 01/16/25 release 24 hr naloxone 4 mg/actuation nasal spray 1 spray intranasal .PRN PRN 11/19/23 01/16/25 apixaban 5 mg tablet (Eliquis) 5 mg PO BID 01/12/25 01/16/25 lisinopril 10 mg tablet 10 mg PO DAILY 01/13/25 01/16/25 polyethylene glycol 3350 17 17 g PO DAILY 01/13/25 01/16/25 gram/dose oral powder sitagliptin phosphate 50 mg tablet 50 mg PO DAILY 01/13/25 01/16/25 (Januvia) metformin 500 mg tablet 500 mg PO BID 01/16/25 01/16/25 Previous Rx's ?Medication ?Instructions ?Recorded cefdinir 300 mg capsule 300 mg PO BID 4 days #8 caps 01/18/25 furosemide 20 mg tablet 20 mg PO DAILY 3 days #3 tabs 01/18/25 hydrocodone 5 mg-acetaminophen 325 1 tab PO BID PRN pain #10 tabs 01/18/25 mg tablet insulin aspart U-100 100 unit/mL See Rx Instructions .Route 01/18/25 (3 mL) subcutaneous pen .COMPLEX #15 mL Allergies Allergy/AdvReac Type Severity Reaction Status Date / Time No Known Drug Allergies Allergy Verified 01/16/25 09:43 Review of Systems Status of ROS: Reports: 10 or more systems reviewed and unremarkable except as noted in History and below [facility] Medical History (Updated 01/26/25 @ 17:17 by Eyad Garcia MD) Non-insulin dependent diabetes mellitus Stroke ?I63.9 - Cerebral infarction, unspecified (ICD-10) Squamous cell carcinoma of lung, stage I ?C34.90 - Malignant neoplasm of unspecified part of unspecified bronchus or lung (ICD-10) Right sided weakness ?R53.1 - Weakness (ICD-10) Tobacco use ?Z72.0 - Tobacco use (ICD-10) Peripheral neuropathy ?G62.9 - Polyneuropathy, unspecified (ICD-10) Essential hypertension ?I10 - Essential (primary) hypertension (ICD-10) Abdominal aneurysm ?I71.40 - Abdominal aortic aneurysm, without rupture, unspecified (ICD-10) CKD stage 3b, GFR 30-44 ml/min ?N18.32 - Chronic kidney disease, stage 3b (ICD-10) Surgical History H/O total hip arthroplasty ?Z96.649 - Presence of unspecified artificial hip joint (ICD-10) S/P bronchoscopy with biopsy ?Z98.890 - Other specified postprocedural states (ICD-10) Social History Narrative: Delaney would be medical decision maker if needed. Requests DNR/DNI status. Retired, smokes 15-20 cigarettes/day. No concerning ETOH use. What is your current living situation?: I presently have a place to live Problems where you live: no known problems Problems where you live details: n/a In the past 12 months, utilities in danger of being shut off: no In past 12 months, lack of transportation kept you from medical appts, meetings, work, or getting things needed for daily living: no In the past 12 mos, have been you worried that your food would run out before you had money to buy more?: never true In the past 12 mos, the food you bought just didn't last and you didn't have money to buy more?: never true Highest level of school completed/degree received: some college, no degree Smoking Status: Current every day smoker What tobacco products do you use: cigarettes Smoking packs per day: 0.75 Smoking cigarettes per day: 15.0 Years smoked: 50 Smoking pack-years: 37.50 Do you use any of these nicotine containing products: None Second hand tobacco smoke exposure: Yes How often do you have a drink containing alcohol: monthly or less Alcohol type: beer How many standard drinks containing alcohol do you have on a typical day: 1 or 2 How often do you have six or more drinks on one occasion: Never AUDIT-C Alcohol total score: 1 Non-prescribed substance use: denies use Caffeine: No How often does anyone, including family, friends and others, physically hurt you: never How often does anyone, including family, friends and others, insult or talk down to you: never How often does anyone, including family, friends and others, threaten you with harm: never How often does anyone, including family, friends and others, scream or curse at you: never service: No Exam Narrative: Exam Narrative: General: No obvious distress sitting comfortably, pale in appearance HEENT: Oropharynx is clear and moist, pupils equal round reactive to light Neck supple Lungs: More Diminished breath sounds left lower lobe, diminished throughout. Heart: Normal sinus rhythm S1-S2 Abdomen: Soft nontender bowel sounds present Muscle skeletal: No lower extremity edema, moving upper lower extremities Neuro; GCS 15, alert awake and oriented x3 Const: Vital Signs, click to edit/add: Vital Signs - 24 hr 01/26/25 14:51 01/26/25 16:30 01/26/25 16:31 Temperature 96 F L Pulse Rate 100 101 H Pulse Rate [Pulse Oximeter] 113 H Respiratory Rate 18 Blood Pressure 91/68 Blood Pressure [Le ft Upper Arm] 94/69 Pulse Oximetry 95 95 94 Oxygen Delivery Me thod Room Air 01/26/25 16:45 01/26/25 17:00 Temperature Pulse Rate 98 106 H Pulse Rate [Pulse Oximeter] Respiratory Rate Blood Pressure Blood Pressure [Le ft Upper Arm] Pulse Oximetry 95 97 Oxygen Delivery Me thod Course Course ED Course: 3:00 PM: aidet performed, vitals show mild tachycardia, blood pressure 94/69, MAP 84, workup will include IV peripheral, 0.9 normal saline bolus, will obtain type and screen, EKG, CBC, INR, CMP, magnesium, CT chest with IV contrast rule out worsening pleural effusion, possible empyema or worsening pneumonia, patient did have a CTA chest angiogram which was negative on recent hospitalization. Differential includes worsening pneumonia, empyema, GI bleed, sepsis, UTI, malignancy, polypharmacy, as well as all etiologies. Reevaluation(s) Time of Reevaluation #1: 16:47 Reevaluation #1: CBC showed worsening leukocytosis 19.25, with a left shift however improved from previous hospitalization, hemoccult was negative, comprehensive metabolic panel showed chronic elevated LFTs, mild increase in BUN and creatinine, pressure improved after the above care given, lactate elevated 4.2, INR 1.6, cultures pending, urinalysis pending NT proBNP 237, imaging showed improved left lower lung no pneumonia, decreased size of left pleural effusion, mild pulmonary edema, was able to speak with hospitalist Debi Hogue, recommendations for admission, await for blood cultures to be negative, will repeat Zosyn and vancomycin for coverage. Patient and were in agreement. IMPRESSION: 1. Improving left lower lobe pneumonia with a small cavity. This appears to overlap with a radiation treatment field for prior lung cancer. Recommend continued follow-up. 2. Decreasing size left pleural effusion. There is some partial loculation along the inferior posterior medial left hemithorax with additional subpulmonic extent. 3. Mild pulmonary edema. 4. Diffuse hepatic steatosis. Vital Signs Vital signs: Initial Vital Signs Temperature 96 F L 01/26/25 14:51 Temperature Source Temporal Artery Scan 01/26/25 14:51 Pulse Rate 113 H 01/26/25 14:51 Respiratory Rate 18 01/26/25 14:51 Blood Pressure 94/69 01/26/25 14:51 Blood Pressure Mean 77 01/26/25 14:51 Blood Pressure Position Supine 01/26/25 14:51 Pulse Oximetry 95 01/26/25 14:51 Oxygen Delivery Method Room Air 01/26/25 14:51 Vital Signs Temperature 96 F L 01/26/25 14:51 Pulse Rate 113 H 01/26/25 14:51 Respiratory Rate 18 01/26/25 14:51 Blood Pressure 94/69 01/26/25 14:51 Pulse Oximetry 95 01/26/25 14:51 Oxygen Delivery Method Room Air 01/26/25 14:51 Temperature 96 F L 01/26/25 14:51 Pulse Rate 106 H 01/26/25 17:00 Respiratory Rate 18 01/26/25 14:51 Blood Pressure 91/68 01/26/25 16:31 Pulse Oximetry 97 01/26/25 17:00 Oxygen Delivery Method Room Air 01/26/25 14:51 Medications Administered Medications: Discontinued Medications Generic Name Dose Route Start Last Admin Trade Name Freq PRN Reason Stop Dose Admin Sodium Chloride 1,000 mls @ 1,000 mls/hr 01/26/25 15:05 01/26/25 17:20 0.9 % Sodium Chloride 1000 Ml IV 01/26/25 16:04 Infused .Q1H GALLITO Infusion Medical Decision Making Lab Data Labs: Lab Results 01/26/25 01/26/25 01/26/25 Range/Units 15:21 15:26 16:23 WBC 19.25 H (4.50-11.00) K/uL RBC 3.52 L (4.30-5.90) m/uL Hgb 10.7 L (13.5-17.5) gm/dL Hct 33.0 L (37.0-53.0) % MCV 94 (80-100) fL MCH 30 (26-34) pg MCHC 32 (32-36) gm/dL RDW Coeff of Maribel 13.2 (11.5-15.5) % Plt Count 614 H (140-440) K/uL Neut % (Auto) 90.1 H (42.0-72.0) % Lymph % (Auto) 3.7 L (20-44) % [place] % (Auto) 4.9 (0.0-11.0) % Eos % (Auto) 0.1 (0.0-7.0) % Baso % (Auto) 0.5 (0.0-3.0) % Neut # (Auto) 17.30 H (1.7-7.0) K/uL Lymph # (Auto) 0.70 L (0.90-2.90) K/uL [place] # (Auto) 0.90 (0.00-0.90) K/UL Eos # (Auto) 0.00 (0.00-0.50) K/uL Baso # (Auto) 0.10 (0.00-0.30) K/uL Abs Immat Gran (auto) 0.10 (0.00-0.30) K/uL Imm/Tot Granulo (auto) 0.7 % INR 1.60 H (0.91-1.10) Sodium 133 L (135-149) mmol/L Potassium 4.3 (3.6-5.1) mmol/L Chloride 94 L (96-114) mmol/L Carbon Dioxide 26 (20-32) mmol/L Anion Gap 13 (7-15) mEq/L BUN 32 H (7-30) mg/dL Creatinine 1.9 H (0.5-1.5) mg/dL Estimated Creat Clear 44.94 Estimated GFR 37 ml/min Glucose 236 H (60-115) mg/dL Lactate 4.2 H* (0.5-1.9) mmol/L Calcium 8.2 L (8.4-10.6) mg/dL Magnesium 1.7 (1.5-2.6) mg/dL Total Bilirubin 0.7 (0.1-1.5) mg/dL AST 56 H (12-35) U/L ALT 57 H (4-50) U/L Alkaline Phosphatase 344 H (40-150) U/L NT-Pro-B Natriuret Pep 237 (See Note) pg/mL Total Protein 6.4 (6.0-8.3) g/dL Albumin 2.8 L (3.3-5.0) g/dL Stool Occult Blood Negative (Negative) Lab Acknowledgement Test Added Discharge Plan Discharge Clinical Impression: Sepsis Patient Disposition: Admitted As Inpatient
--- OUTSIDE RECORDS SUMMARY | 2025-01-26 14:52 | XMS_ITS | Clinical Summary ---
Author Organization [facility] Address [address] [place] [address] Care Team Providers Care Jet Handler Name Role Phone Dorinda Washington DO Primary Care Provider Faith Donovan RN Unavailable [phone] Kennedi Perry RN, BSN, OCN Unavailable AleshaHina RN Unavailable Han Bradley MD Unavailable [phone] Unavailable [phone] Feliciano Soria MD Unavailable [place] Unavailable Unavailable [facility] Unavailable Allergies No known active allergies Medications lancets (OneTouch Delica Plus Lancet) 30 gauge miscIndications:Type 2 diabetes mellitus with diabetic 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, 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) As directed. Dispense item covered by pt ins. E11.9 NIDDM type II - Test 3 times/day, Reason: High A1C 100 Each 5 02/12/20 23 Active medication order composer Enzymedica Digestive Enzyme: 1 capsule po daily. Mitocore: 2 tablets po daily. Garden of Life Probiotic 30 billion: 1 capsule po daily. 10/28/19 24 Active naloxone (NARCAN) 4 mg/actuation nasal sprayIndications:Enco unter for therapeutic drug monitoring Inhale 1 [place] into affected nostril(s) each time if needed for Patient Diff To Arouse or Resp Rate < 8 / min. Additional doses may be given every 2 to 3 minutes until emergency medical assistance arrives. 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 E11.9 NIDDM type II - Test 3 times/day, Reason: High A1C 300 Each 3 11/17/19 24 Active continuous glucose monitor SENSOR KIT (Aktana RACHEL)Indications:Typ e 2 diabetes mellitus with diabetic 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, 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) To be used to read blood sugars per cash management officer' s directions. 6 Each 3 11/24/19 24 Active continuous glucose monitor READER (BloomNationLE RACHEL)Indications:Typ e 2 diabetes mellitus with diabetic 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, 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) To be used to read blood sugars per cash management officer' s directions. 1 Each 11/24/19 24 Active polyethylene glycoL (MIRALAX) 17 gram/scoop powderIndications:Opi oid-induced constipation Mix 1 scoop (17 g) in liquid then take by mouth once daily. 510 g 11 12/10/19 24 Active allopurinoL 100 mg tablet Take 100 mg by mouth two times daily. Active amLODIPine 10 mg tabletIndications:HTN (hypertension) TAKE 1 TABLET(10 MG) BY MOUTH EVERY DAY 90 Tablet 2 07/12/19 25 Active metFORMIN (GLUCOPHAGE) 500 mg tabletIndications:Typ e 2 diabetes mellitus with hyperglycemia, 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) Take 1 Tablet (500 mg) by mouth two times daily with meals. 180 Tablet 3 09/11/19 25 Active Qcesdomjope-WE-Xg-S.t hermophl 1 billion cell- 250 mg tab Take 1 Tablet by mouth. Active amitriptyline 10 mg tabletIndications:Robert ropathic pain,Chronic neck pain Take 1 Tablet (10 mg) by mouth at bedtime. For chronic neuropathic/ chronic pain syndrome. 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 90 Tablet 3 12/09/19 25 Active apixaban (ELIQUIS) 5 mg tabletIndications:pre vent thromboembolism in chronic atrial fibrillation,acute stroke in the setting of hypercoagulability of lung cancer Take 1 Tablet (5 mg) by mouth two times daily. 180 Tablet 3 12/09/19 25 Active glipiZIDE extended-release (GLUCOTROL XL) 10 mg Extended-Release tabletIndications:Typ e 2 diabetes mellitus with diabetic 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, 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) TAKE 2 TABLETS(20 MG) BY MOUTH DAILY BEFORE A MEAL 60 Tablet 12/24/19 25 Active Walker - 4 wheelsIndications:Rec urrent falls,Generalized weakness For home use. Length of need: 12 months 1 Each 01/04/20 25 Active lisinopriL (PRINIVIL; ZESTRIL) 10 mg tabletIndications:HTN (hypertension) Take 1 Tablet (10 mg) by mouth once daily. 90 Tablet 3 01/04/20 25 Active HYDROcodone-acetamino phen (5-325 mg/tablet)Indications :Neuropathic pain Take 1 Tablet by mouth two times daily. 60 Tablet 01/05/20 25 Active predniSONE (DELTASONE) 20 mg tabletIndications:Gen eralized weakness,ESR raised Take 1 Tablet (20 mg) by mouth once daily with a meal. 5 Tablet 01/05/20 25 Active predniSONE (DELTASONE) 20 mg tablet Take 20 mg by mouth once daily. 01/06/20 25 Active predniSONE (DELTASONE) 20 mg tabletIndications:Robert ropathic pain,Recurrent falls,Generalized weakness Take 1 Tablet (20 mg) by mouth once daily with a meal. 3 Tablet 01/11/20 25 Active cefdinir 300 mg capsule Take 300 mg by mouth. 01/16/20 25 Active furosemide (LASIX) 20 mg tablet Take 1 Tablet (20 mg) by mouth once daily in the morning. 01/27/20 Active meclizine (ANTIVERT) 25 mg tabletIndications:Diz ziness Take 1 Tablet (25 mg) by mouth 3 times daily if needed for Vertigo. 30 Tablet 11/28/192024 Discontin ued(*Pily ent states no longer taking) HYDROcodone-acetamino phen (5-325 mg/tablet)Indications :Neuropathic pain Take 1 Tablet by mouth two times daily. Use dates: 10/14/24-10/25 11/18; 10/12/2024 60 Tablet 10/13/192024 Discontin ued(Reord er (E-cancel not sent)) lisinopriL (PRINIVIL; ZESTRIL) 30 mg tabletIndications:HTN (hypertension) Take 1 Tablet (30 mg) by mouth once daily. 90 Tablet 3 09/21/192024 Discontin ued(*Medi cation adjustmen t) HYDROcodone-acetamino phen (5-325 mg/tablet)Indications :Neuropathic pain Take 1 Tablet by mouth two times daily. Use dates: 09/14/24-09/25 60 Tablet 12/04/192024 Discontin ued(Dupli luan therapy (E-cancel not sent)) Active Problems Problem [...] Encounters Date Type Department Care Team Description 01/26/2025 1:00 PM SHEARER OPERATOR Office Visit [address] [facility] [place] [address] Smita Johnson, [facility] F/U (pneumonia/) 01/26/2025 Travel 01/25/2025 Lab Requisition [facility] [phone] Unknown, Doctor 01/17/2025 Home Care Visit [facility] [address] [place] [phone] Octavia Bryson, RN CARE COORDINATION 01/14/2025 Home Care Visit [facility] [address] [place] [phone] Octavia Bryson, RN SN - OASIS TRANSFER 01/12/2025 Home Care Visit [facility] [address] [place] [phone] Octavia Bryson, GLASS DESIGNER NOTE 01/12/2025 Travel 01/11/2025 Home Care Visit [facility] [address] [place] [phone] Denisse Gordon, PT CARE COORDINATION 01/09/2025 Home Care Visit [facility] [address] [place] [phone] Jasmyne Lee OT CARE COORDINATION 01/08/2025 Nurse Triage [facility] [address] [place] [address] Sandeepqra Dorinda Beth, DO Contact Preference 01/05/2025 11:00 AM SHEARER OPERATOR Home Care Visit [facility] [address] [place] [phone] Cristina Bower, COLIN SN - OASIS START OF CARE 01/05/2025 Plan of Care Documentation [facility] [address] [place] [phone] 01/05/2025 Telephone [facility] [phone] Cristina Bower RN Home Care (Home care orders) 01/05/2025 Telephone [facility] [phone] Padmini Dorinda Beth, DO 01/04/2025 Telephone [address] [place] [address] Sandeepqra Dorinda Beth, DO provider to provider 01/03/2025 10:35 AM SHEARER OPERATOR Office Visit [facility] [address] [place] [address] Sandeepqra Dorinda Beth, DO Weak (Pt/spouse report overall weakness, fall x3-4 over the last 10-12 days, decrease in appetite, fever, cough - had Hep B vaccine 12/24) 01/03/2025 Travel 12/28/2024 Telephone [address] [place] [address] Padmini Dorinda Beth, DO Fall; Extremity Weakness 12/23/2024 Refill [address] [place] [address] Sandeepqra Dorinda Beth, DO Refill Request (Glipizide Extended-release) 12/22/2024 Refill [address] [place] [address] Dorinda Washington Beth, DO Refill Request (Glipizide Extended-release) 12/15/2024 10:30 AM CDT Orders [place] [address] [address] Lab, [facility] 12/15/2024 Travel 12/13/2024 1:00 PM CDT Office Visit [facility] [address] [place], [place] [phone] Nicole Bowles, TY Eye Exam (DM Exam) 12/13/2024 Travel 12/09/2024 Orders Only [facility] Scanner 1 scan: (1-Ord) GIO AKBAR, GLENHUMERAL INJ, 12/09/2024 12/09/2024 Telephone [address] [place] [address] Dorinda Washington Beth, DO Prior Authorization (SITagliptin phosphate (JANUVIA) 50 mg tablet - PA NOT NEEDED) 12/09/2024 Telephone [address] [place] [address] Dorinda Washington Beth, DO Prior Authorization 12/08/2024 9:45 AM CDT Office Visit [address] [place] [address] Dorinda Washington Beth, DO Medication Management (alternative diabetic medication) 12/08/2024 Travel 12/06/2024 10:30 AM CDT Ancillary Procedure [address] [place] [address] 12/06/2024 Travel 11/16/2024 2:10 PM CDT Office Visit [facility] [address] [place] [address] Sir Washingtoni Beth, DO Medication Problem (Ozempic- would like to get off of it due to weight loss and appetite loss ) 11/16/2024 Travel 11/14/2024 Refill [address] [place] [address] Dorinda Washington, DO Refill Request (Atorvastatin) 11/07/[address] 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 Not on file Not on file Obstetrics History Last Filed Vital Signs Vital Sign Reading Time Taken Comments Blood Pressure 80/58 01/26/2025 1:18 PM SHEARER OPERATOR Pulse 119 01/26/2025 1:00 PM SHEARER OPERATOR Temperature 36.7 C (98 F) 01/05/2025 11:31 AM SHEARER OPERATOR Respiratory Rate 25 01/05/2025 11:31 AM SHEARER OPERATOR Oxygen Saturation 96% 01/26/2025 1:00 PM SHEARER OPERATOR Inhaled Oxygen Concentration - - Weight 90.3 kg (199 lb) 01/26/2025 1:00 PM SHEARER OPERATOR Height 195.6 cm (6' 5) 06/16/2024 7:05 AM CDT Body Mass Index 23.6 06/16/2024 7:05 AM CDT Plan of Treatment Upcoming Encounters Date Type Department Care Team (Late st Contact Info) Description 01/31/2025 11:00 AM SHEARER OPERATOR Office Visit [facility] [address] [place] [address] Kerline Washington DO [address] [place] [address] 02/07/2025 1:10 PM SHEARER OPERATOR Office Visit [facility] [address] [address] [place] [address] [employer], [place] [phone] 07/14/2025 9:30 AM CDT Telemedicine [facility] [address] [place] [address] Neymar Brumfield MD [address] [place] [id number] Health Maintenance Due Date Last Done Comments Hepatitis B series for 19+ ( 2 of 3 - 19+ 3-dose series) 09/06/1991 08/09/1991 Colonoscopy through age 75 1998 BMI (ht and wt on same day) for age 18+ 12/09/2024 12/10/2023, 07/17/2023, 02/19/2023, Additional history exists Medicare Wellness for age 65+ 12/10/2024 12/10/2023 COVID-19 vaccine series (12 - Moderna risk 2024- season) 2025 11/22/2024, 07/14/2024, 12/05/2023, Additional history exists Depression screening for age 12+ 09/20/2025 09/20/2024, [...] , 01/15/2023 Medical Devices Implanted Type Area Firer Low Pressure Device Identifier Shelf Expiration Date Model / Serial / Lot Perform 10 Deg Insert Ve Sz3/4 42 Mm +3 Implanted:Qty: 1 on 06/16/2024 by Hesham Clark MD at [facility] Right: Shoulder 02/01/2025 [id number] / [id number] / Description:Perform 10 Deg I nsert VE SZ3/4 42 mm +3 Baseplate Glenoid 29mm 15 Deg Perform+ Full Wedge - [id number] Implanted:Qty: 1 on 06/16/2024 by Hesham Clark MD at [facility] Right: Shoulder [employer] 04/06/2029 [id number] / [id number] / Stem Hum Sz 3 Plus Sht Perform - [id number] Implanted:Qty: 1 on 06/16/2024 by Hesham Clark MD at [facility] Right: Shoulder [employer] 12/30/2028 [id number] / [id number] / Glenoid 42mm Perform+ Rev - [id number] Implanted:Qty: 1 on 06/16/2024 by Hesham Clark MD at [facility] Right: Shoulder [employer] 12/18/2026 [id number] / [id number] / Screw Shoulder 22mm Perform+ Periph - [id number] Implanted:Qty: 1 on 06/16/2024 by Hesham Clark MD at [facility] Right: Shoulder [employer] [id number] / / Screw Shoulder 34mm Perform+ Periph - [id number] Implanted:Qty: 2 on 06/16/2024 by Hesham Clark MD at [facility] Right: Shoulder [employer] [id number] / / Post Shldr Glenoid 6.5x35mm Perform+ Rev - [id number] Implanted:Qty: 1 on 06/16/2024 by Hesham Clark MD at [facility] Right: Shoulder [employer] [id number] / / Procedures Procedure Name Priority Date/Time Associated Diagnosis Comments COMP METABOLIC PANEL Routine 01/26/2025 8:33 AM SHEARER OPERATOR Essential (primary) hypertension Chronic kidney disease, stage 3b (HC) Weakness CBC W PLT NO DIFF Routine 01/26/2025 8:3 3 AM SHEARER OPERATOR Essential (primary) hypertension Chronic kidney disease, stage 3b (HC) Weakness CBC WITH AUTO DIFFERENTIAL Routine 01/03/2025 12:00 PM SHEARER OPERATOR Recurrent falls Generalized weakness VITAMIN B1 (THIAMINE) BLOOD Routine 01/03/2025 12:00 PM SHEARER OPERATOR Recurrent falls Generalized weakness MAGNESIUM Routine 01/03/2025 12:00 PM SHEARER OPERATOR Recurrent falls Generalized weakness HEMOGLOBIN A1C MONITORING (POCT) Routine 01/03/2025 12:00 PM SHEARER OPERATOR Type 2 diabetes mellitus with diabetic 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, 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) BASIC METABOLIC PANEL Routine 01/03/2025 12:00 PM SHEARER OPERATOR Recurrent falls Generalized weakness CBC WITH AUTO DIFFERENTIAL Routine 01/03/2025 12:00 PM SHEARER OPERATOR Recurrent falls Generalized weakness CK TOTAL Routine 01/03/2025 12:00 PM SHEARER OPERATOR Recurrent falls Generalized weakness RA QUANTITATIVE Routine 01/03/2025 12:00 PM SHEARER OPERATOR Recurrent falls Generalized weakness ANTINUCLEAR ANTIBODY BY IFA Routine 01/03/2025 12:00 PM SHEARER OPERATOR Recurrent falls Generalized weakness C-REACTIVE PROTEIN Routine 01/03/2025 12 :00 PM SHEARER OPERATOR Recurrent falls Generalized weakness SEDIMENTATION RATE Routine 01/03/2025 12 :00 PM SHEARER OPERATOR Recurrent falls Generalized weakness TESTOSTERONE,TOTAL Routine 01/03/2025 12 :00 PM SHEARER OPERATOR Low testosterone in male SCAN-OPERATIVE/PROCED URE REPORT 12/09/2024 12:[address] CHEST WO Routine 12/06/2024 10:40 AM CDT Malignant neoplasm of lower lobe, left bronchus or lung (HC) LIPID PANEL W REFLEX MEASURED LDL Routine 02/24/2024 10:39 AM SHEARER OPERATOR Lipid screening US ABD AORTA SCREENING Routine 02/21/2023 10:11 AM SHEARER OPERATOR Screening for AAA (aortic abdominal aneurysm) ANTI HCV Routine 02/04/2023 11:56 AM SHEARER OPERATOR Need for hepatitis C screening test from Last 3 Months or Most Recently Relevant to Health Maintenance Results * (ABNORMAL) CBC W PLT NO DIFF (01/26/2025 8:33 AM SHEARER OPERATOR) WHITE BLOOD COUNT 15.2(H) 4.5 - 11.0 thou/cu mm 01/26/2025 9:08 AM [facility] RED BLOOD COUNT 3.35(L) 4.30 - 5.90 mil/cu mm 01/26/2025 9:08 AM [facility] HEMOGLOBIN 10.0(L) 13.5 - 17.5 g/dL 01/26/2025 9:08 AM [facility] HEMATOCRIT 30.9(L) 37.0 - 53.0 % 01/26/2025 9:08 AM [facility] MCV 92 80 - 100 fL 01/26/2025 9:08 AM [facility] MCH 29.9 26.0 - 34.0 pg 01/26/2025 9:08 AM [facility] MCHC 32.4 32.0 - 36.0 g/dL 01/26/2025 9:08 AM [facility] RDW 13.5 11.5 - 15.5 % 01/26/2025 9:08 AM [facility] PLATELET COUNT 491(H) 140 - 440 thou/cu mm 01/26/2025 9:08 AM [facility] MPV 10.7 6.5 - 11.0 fL 01/26/2025 9:08 AM [facility] Blood BLOOD SPECIMEN / Unknown Venipuncture / Unknown 01/26/2025 8:33 AM SHEARER OPERATOR 01/26/2025 8:58 AM [facility] us Doctor Unknown HEMATOLOGY Final Result [facility] [address] [place] [address] * (ABNORMAL) COMP METABOLIC PANEL (01/26/2025 8:33 AM [facility]) SODIUM 137 136 - 145 mmol/L 01/26/2025 9:28 AM [facility] POTASSIUM 4.1 3.5 - 5.1 mmol/L 01/26/2025 9:28 AM [facility] CHLORIDE 101 98 - 107 mmol/L 01/26/2025 9:28 AM [facility] CO2,TOTAL 27 22 - 29 mmol/L 01/26/2025 9:28 AM [facility] ANION GAP 9 5 - 18 01/26/2025 9:28 AM [facility] GLUCOSE 152(H) 70 - 99 mg/dL 01/26/2025 9:28 AM [facility] CALCIUM 8.3(L) 8.8 - 10.4 mg/dL 01/26/2025 9:28 AM [facility] Comment: Reference ranges for this test were updated on 12/30/2023 to reflect our healthy population more accurately. Reference range changes are not retroactively applied to results, but previous results using the same methodology can be interpreted in the context of the new reference range. BUN 28(H) 8 - 23 mg/dL 01/26/2025 9:28 AM [facility] CREATININE 1.27(H) 0.70 - 1.20 mg/dL 01/26/2025 9:28 AM [facility] BUN/CREAT RATIO 22(H) 10 - 20 9:28 AM [facility] eGFR 60(L) >90 mL/min/1. 73m2 01/26/2025 9:28 AM [facility] Comment:As of 2021, eG FR is calculated by the CKD-EPI creatinine equation without race adjustment. eGFR can be influenced by muscle mass, exercise, and diet. The reported eGFR is an estimation only and is only applicable if the renal function is stable. ALBUMIN 2.4(L) 4.0 - 4.9 g/dL 01/26/2025 9:28 AM [facility] PROTEIN,TOTAL 5.8(L) 6.0 - 8.0 g/dL 01/26/2025 9:28 AM [facility] BILIRUBIN,TOTAL 0.5 0.0 - 1.2 mg/dL 01/26/2025 9:28 AM [facility] ALK PHOSPHATASE 297(H) 40 - 129 IU/L 01/26/2025 9:28 AM [facility] ALT (SGPT) 42 10 - 50 IU/L 01/26/2025 9:28 AM [facility] AST (SGOT) 47 10 - 50 IU/L 01/26/2025 9:28 AM [facility] Blood BLOOD SPECIMEN / Unknown Venipuncture / Unknown 01/26/2025 8:33 AM SHEARER OPERATOR 01/26/2025 8:58 AM [facility] us Doctor Unknown CHEMISTRY Final Result [facility] [address] [place] [address] * (ABNORMAL) SEDIMENTATION RATE (01/03/2025 12:00 PM SHEARER OPERATOR) SED RATE BY MODIFIED WESTERGREN 41(H) < OR = 20 mm/h 01/04/2025 4:30 AM SHEARER OPERATOR [facility] Blood BLOOD SPECIMEN / Unknown [facility] / Unknown 01/03/2025 12:00 PM SHEARER OPERATOR 01/03/2025 12:00 PM SHEARER OPERATOR Dorinda Beth Sandeep DO HEMATOLOGY Final Result Performing Organization Address [facility] Co de Phone Number [facility] [address] [address], [place] [phone] * ANTINUCLEAR ANTIBODY BY IFA (01/03/2025 12:00 PM SHEARER OPERATOR) Pathologist [facility] AG SCREEN, IFA NEGATIVE NEGATIVE 7:00 AM SHEARER OPERATOR [facility] Comment: AG IFA is a first [...] AC-0: Negative International Consensus on AG Patterns (https://doi.org/10.1515/lvms-0171-9246) For additional information, please refer to http://education.Atlas5D.RepairPal/faq/UGU806 (This link is being provided for informational/ educational purposes only.) Blood BLOOD SPECIMEN / Unknown [facility] / Unknown 01/03/2025 12:00 PM SHEARER OPERATOR 01/03/2025 12:00 PM SHEARER OPERATOR Dorinda Washington DO CHEMISTRY Final Result Performing Organization Address [facility]/ZIP Co de Phone Number [email or web address] [address] [address], [place] [phone] * (ABNORMAL) VITAMIN B1 (THIAMINE) BLOOD (01/03/2025 12:00 PM SHEARER OPERATOR) [facility] VITAMIN B1 (THIAMINE), BLOOD, LC/MS/MS 222(H) 78 - 185 nmol/L 01/07/2025 10:16 AM SHEARER OPERATOR [facility] Comment: (Note) Vitamin supplementation within 24 hours prior to blood draw may affect the accuracy of the results. This test was developed and its analytical performance characteristics have been determined by [facility]. It has not been cleared or approved by FDA. This assay has been validated pursuant to the CLIA regulations and is used for clinical purposes. MD [facility] [id number] [address],[address] [facility] [address] Spike Sue MD, PhD Blood BLOOD SPECIMEN / Unknown [facility] / Unknown 01/03/2025 12:00 PM SHEARER OPERATOR 01/03/2025 12:00 PM SHEARER OPERATOR Dorinda Washington DO SEND OUTS Final Result [facility] [address] [address], * (ABNORMAL) CBC WITH AUTO DIFFERENTIAL (01/03/2025 12:00 PM SHEARER OPERATOR) [facility] WHITE BLOOD CELL COUNT 11.9(H) 3.8 - 10.8 Thousand/ uL 01/04/2025 3:38 AM SHEARER OPERATOR [facility] RED BLOOD CELL COUNT 3.80(L) 4.20 - 5.80 Million/u L 01/04/2025 3:38 AM SHEARER OPERATOR [facility] HEMOGLOBIN 11.9(L) 13.2 - 17.1 g/dL 01/04/2025 3:38 AM SHEARER OPERATOR [facility] HEMATOCRIT 35.3(L) 38.5 - 50.0 % 01/04/2025 3:38 AM SHEARER OPERATOR [facility] MCV 92.9 80.0 - 100.0 fL 01/04/2025 3:38 AM SHEARER OPERATOR [facility] MCH 31.3 27.0 - 33.0 pg 01/04/2025 3:38 AM SHEARER OPERATOR [facility] MCHC 33.7 32.0 - 36.0 g/dL 01/04/2025 3:38 AM SHEARER OPERATOR [facility] Comment: For adults, a slight decrease in the calculated MCHC value (in the range of 30 to 32 g/dL) is most likely not clinically significant; however, it should be interpreted with caution in correlation with other red cell parameters and the patient's clinical condition. RDW 11.6 11.0 - 15.0 % 01/04/2025 3:38 AM SHEARER OPERATOR [facility] PLATELET COUNT 581(H) 140 - 400 Thousand/ uL 01/04/2025 3:38 AM SHEARER OPERATOR [facility] MPV 11.0 7.5 - 12.5 fL 01/04/2025 3:38 AM SHEARER OPERATOR [facility] NEUTROPHILS 83.3 % 01/04/2025 3:38 AM SHEARER OPERATOR [facility] LYMPHOCYTES 8.0 % 01/04/2025 3:38 AM SHEARER OPERATOR [facility] MONOCYTES 7.2 % 01/04/2025 3:38 AM SHEARER OPERATOR [facility] EOSINOPHILS 1.0 % 01/04/2025 3:38 AM SHEARER OPERATOR [facility] BASOPHILS 0.5 % 01/04/2025 3:38 AM SHEARER OPERATOR [facility] ABSOLUTE NEUTROPHILS 9913(H) 1500 - 7800 cells/uL 01/04/2025 3:38 AM SHEARER OPERATOR [facility] ABSOLUTE LYMPHOCYTES 952 850 - 3900 cells/uL 01/04/2025 3:38 AM SHEARER OPERATOR [facility] ABSOLUTE MONOCYTES 857 200 - 950 cells/uL 01/04/2025 3:38 AM SHEARER OPERATOR [facility] ABSOLUTE EOSINOPHILS 119 15 - 500 cells/uL 01/04/2025 3:38 AM SHEARER OPERATOR [facility] ABSOLUTE BASOPHILS 60 0 - 200 cells/uL 01/04/2025 3:38 AM SHEARER OPERATOR [facility] Blood BLOOD SPECIMEN / Unknown [facility] / Unknown 01/03/2025 12:00 PM SHEARER OPERATOR 01/03/2025 12:00 PM SHEARER OPERATOR us Dorinda Washington DO HEMATOLOGY Final Result [facility] [address] [place] [address], [place] [phone] * (ABNORMAL) RA QUANTITATIVE (01/03/2025 12:00 PM SHEARER OPERATOR) RHEUMATOID FACTOR 26(H) <14 IU/mL 01/04/2025 2:33 PM SHEARER OPERATOR [facility] Blood BLOOD SPECIMEN / Unknown [facility] / Unknown 01/03/2025 12:00 PM SHEARER OPERATOR 01/03/2025 12:00 PM SHEARER OPERATOR Dorinda Washington DO SEND OUTS Final Result Performing Organization Address [facility]/ZIP Co de Phone Number [facility] [address] [address], * (ABNORMAL) C-REACTIVE PROTEIN (01/03/2025 12:00 PM SHEARER OPERATOR) Pathologist [facility] C-REACTIVE PROTEIN (MG/L) 29.9(H) <8.0 mg/L 01/04/2025 2:33 PM SHEARER OPERATOR [facility] Blood BLOOD SPECIMEN / Unknown [facility] / Unknown 01/03/2025 12:00 PM SHEARER OPERATOR 01/03/2025 12:00 PM SHEARER OPERATOR Dorinda Washington DO CHEMISTRY Final Result Performing Organization Address [facility] de Phone Number [email or web address] [address] [address], * (ABNORMAL) TESTOSTERONE,TOTAL (01/03/2025 12:00 PM SHEARER OPERATOR) Pathologist [facility] TESTOSTERONE, TOTAL, MS 221(L) 250 - 1100 ng/dL 01/06/2025 2:56 PM SHEARER OPERATOR [facility] Comment: Men with clinically significant hypogonadal symptoms and testosterone values repeatedly in the range of the 200-300 ng/dL or less, may benefit from testosterone treatment after adequate risk and benefits counseling. For additional information, please refer to https://[email or web address].RepairPal/faq/TotalTestosteroneLCMSMS (This link is being provided for informational/educational purposes only.) (Note) This test was developed and its analytical performance characteristics have been determined by [employer]. It has not been cleared or approved by the FDA. This assay has been validated pursuant to the CLIA regulations and is used for clinical purposes. [facility] med fusion [address] [facility] [address] [place] [address] Spike Sue MD, PhD Blood BLOOD SPECIMEN / Unknown [facility] / Unknown 01/03/2025 12:00 PM SHEARER OPERATOR 01/03/2025 12:00 PM SHEARER OPERATOR us Dorinda Beth citiserviqra DO CHEMISTRY Final Result Performing Organization Address City/[facility]/ZIP Co de Phone Number [email or web address] [address] [address], [place] [phone] * MAGNESIUM (01/03/2025 12:00 PM SHEARER OPERATOR) [facility] MAGNESIUM 1.9 1.5 - 2.5 mg/dL 01/04/2025 4:02 AM SHEARER OPERATOR [facility] Blood BLOOD SPECIMEN / Unknown [facility] / Unknown 01/03/2025 12:00 PM SHEARER OPERATOR 01/03/2025 12:00 PM SHEARER OPERATOR Kiii Beth Sandeepqra DO CHEMISTRY Final Result Performing Organization Address [facility] de Phone Number [facility] [address] [address], [place] [phone] * (ABNORMAL) HEMOGLOBIN A1C MONITORING (POCT) (01/03/2025 12:00 PM SHEARER OPERATOR) Pathologist [facility] POC HEMOGLOBIN A1C 9.7(H) <6.0 % OF TOTAL HGB 01/03/2025 12:12 PM SHEARER OPERATOR [facility] Comment: Any point of care results exhibiting inconsistency with the patient's clinical status should be repeated using a different testing method. Blood BLOOD SPECIMEN / Unknown [facility] / Unknown 01/03/2025 12:00 PM SHEARER OPERATOR 01/03/2025 12:00 PM SHEARER OPERATOR [employer] Dorinda Beth citiserviqra DO CHEMISTRY Final Result [facility] [address] [place] [address], [place] [phone] [facility] [address] [place] [address], [place] [phone] * CK TOTAL (01/03/2025 12:00 PM SHEARER OPERATOR) CREATINE KINASE, TOTAL 40 19 - 278 U/L 01/04/2025 4:02 AM SHEARER OPERATOR [facility] Blood BLOOD SPECIMEN / Unknown [facility] / Unknown 01/03/2025 12:00 PM SHEARER OPERATOR 01/03/2025 12:00 PM SHEARER OPERATOR Dorinda Washington DO CHEMISTRY Final Result Performing Organization Address [facility]/ZIP Co de Phone Number [facility] [address] [address], [place] [phone] * (ABNORMAL) BASIC METABOLIC PANEL (01/03/2025 12:00 PM SHEARER OPERATOR) SODIUM 138 135 - 146 mmol/L 01/04/2025 4:02 AM SHEARER OPERATOR [facility] POTASSIUM 5.1 3.5 - 5.3 mmol/L 01/04/2025 4:02 AM SHEARER OPERATOR [facility] CARBON DIOXIDE 22 20 - 32 mmol/L 01/04/2025 4:02 AM SHEARER OPERATOR [facility] GLUCOSE 223(H) 65 - 99 mg/dL 01/04/2025 4:02 AM SHEARER OPERATOR [facility] Comment: Fasting reference interval For someone without known diabetes, a glucose value >125 mg/dL indicates that they may have diabetes and this should be confirmed with a follow-up test. CALCIUM 9.0 8.6 - 10.3 mg/dL 01/04/2025 4:02 AM SHEARER OPERATOR [facility] CREATININE 1.77(H) 0.70 - 1.28 mg/dL 01/04/2025 4:02 AM SHEARER OPERATOR [facility] BUN/CREATININE RATIO 20 6 - 22 (calc) 01/04/2025 4:02 AM SHEARER OPERATOR [facility] EGFR 41(L) > OR = 60 mL/min/1. 73m2 01/04/2025 4:02 AM SHEARER OPERATOR [facility] UREA NITROGEN (BUN) 35(H) 7 - 25 mg/dL 01/04/2025 4:02 AM SHEARER OPERATOR [facility] ELECTROLYTE BALANCE 10 7 - 17 mmol/L (calc) 01/04/2025 4:02 AM SHEARER OPERATOR [facility] CHLORIDE 106 98 - 110 mmol/L 01/04/2025 4:02 AM SHEARER OPERATOR [facility] Blood BLOOD SPECIMEN / Unknown [facility] / Unknown 01/03/2025 12:00 PM SHEARER OPERATOR 01/03/2025 12:00 PM SHEARER OPERATOR us Dorinda Beth Washington DO CHEMISTRY Final Result [facility] [address] [place] [address], * SCAN-OPERATIVE/PROCEDURE REPORT (12/09/2024 12:00 AM CDT) [...] result of the Century Cures Act, medical imagingexams and procedure reports [...] 12/07/2024 9:28:52 AM (Electronically Signed) Bonita Glover APRN, TELEVISION STATION MANAGER CT Fin al Result * LIPID PANEL W REFLEX MEASURED LDL (02/24/2024 10:39 AM SHEARER OPERATOR) CHOLESTEROL, TOTAL 97 <200 mg/dL [facility] [...] factors. LDL-C is now calculated using the Tyra calculation, which is a validated novel method providing better accuracy than the Friedewald equation in the estimation of LDL-C. Matty SCHULTZ et al. SEBASTIAN. 2013;310(19): 9152-9697 (http://education.Fippex/faq/GPZ804) CHOL/HDLC RATIO 2.0 <5.0 (calc) [facility] Saeed NON HDL CHOLESTEROL 49 <130 mg/dL (calc) [facility] Comment: For patients with diabetes plus 1 major ASCVD risk factor, treating to a non-HDL-C goal of <100 mg/dL (LDL-C of <70 mg/dL) is considered a therapeutic option. Blood BLOOD SPECIMEN / Unknown 02/24/2024 10:39 AM SHEARER OPERATOR 02/24/2024 10:42 AM SHEARER OPERATOR us Dorinda Beth Sandeepcheng DO CHEMISTRY Final Result [facility] [address] [place] [address], [facility] [address] [place] [address] * US ABD AORTA SCREENING [[id number]] (02/21/2023 10:11 AM SHEARER OPERATOR) Anatomical Region Laterality Modality Abdomen, AORTA Ultrasound 02/21/2023 2:18 PM SHEARER OPERATOR Narrative 02/21/2023 2:18 PM SHEARER OPERATOR For Patients: As a result of the [...] Feb 21 2023 2:18PM (Electronically Signed) Dorinda Beth Padmini DO [place] Final Result * ANTI HCV (02/04/2023 11:56 AM SHEARER OPERATOR) HEPATITIS C ANTIBODY Non-Reacti ve Non-React nerissa 02/04/2023 9:39 PM SHEARER OPERATOR [facility] Comment:Please note, per www .CDC.gov: If a patient is known to be at high risk of HCV infection, or is symptomatic, and the physician's suspicion of HCV infection is high, HCV RNA testing is often employed and is of diagnostic value, even after an initial negative anti-HCV test result. Blood BLOOD SPECIMEN / Unknown Venipuncture / Unknown 02/04/2023 11:56 AM SHEARER OPERATOR 02/04/2023 11:58 AM SHEARER OPERATOR Kiii Beth Sandeepqra DO SEND OUTS Final Result [facility] [address] [place] [address], from Last 3 Months or Most Recently Relevant to Health Maintenance Insurance MEDICARE PART A HB ONLY MEDICARE PB ONLY MEDICARE PART B HB ONLY [facility] PPS Advance Directives * Full [...] Preferences, Provider to review later Care Teams Jet Handler Relationship Specialty Start Date End Date Dorinda Washington Beth [address] [place] [address] PCP - General Family Practice 02/13/24 Faith Donovan, RN [address] [place] [address] Underground Mine Superintendent 02/11/23 Kennedi Perry, RN, BSN, OCN [address] [facility] [address] [place] [address] Nurse Navigator - Oncology Registered Nurse 02/19/23 Hina Campbell, RN [address] [place] [address] Nurse Navigator - Oncology Registered Nurse 06/06/23 Han Bradley MD [address] [place] [address] Physical Medicine and Rehabilitation 07/17/[address] [place] [address] High School Social Studies Tutor 09/13/24 02/22/25 Feliciano Soria MD [address] [facility] [address] [place] [address] Nephrology 12/27/24 [place] 12/27/24 [facility] [address] [place] [address] 01/04/25
--- OUTSIDE RECORDS SUMMARY | 2025-01-26 14:52 | XMS_ITS ---
Author Organization [facility] Address [address] [place] [address] Care Team Providers Care Hotel Engineer Name Role Phone Unavailable Primary Care [...] Fraction Dose Fractions Total Dose Plans Planned [id number] 08/14/2023 - 08/20/2023 1,000 cGy 5,000 cGy Reference Points Delivered [id number] 08/14/2023 - 08/20/2023 5,000 cGy
--- NOTE | 2025-01-26 15:05 | CRLHL7_ITS ---
For Patients: As a result of the Century Cures Act, medical imaging exams and procedure reports are released immediately into your electronic medical record. You may view this report before your referring provider. If you have questions, please contact your health care provider. INDICATION: Resolving effusion and ongoing weakness. COMPARISON: 01/14/2025, 01/12/2025, 12/07/2024, 11/12/2023 TECHNIQUE: CT chest with contrast. Multiplanar axial, coronal, and sagittal reformats are included. MIP images to improve detection of pulmonary nodules are included. Intravenous contrast: 75 mL Isovue 370 FINDINGS: Airway: Normal tracheobronchial tree. Lungs: Left lower lobe pneumonia again seen. The area of necrosis/cavitation is slightly smaller and measures about 2.5 x 2.5 cm with a small air-fluid level. No new areas of necrosis or cavitation. There is some smooth interlobular septal thickening with a basal dependent predominance typical of pulmonary edema. There is some mild basilar atelectasis. There are not any new consolidations. No significant emphysema. Pleura: There is a small left pleural effusion that is slightly loculated medially and inferiorly. There is also sub pulmonic extent. It measures 6.7 x 3.4 cm on series 2, image 78. This has decreased in size since the comparison exam. There is some associated pleural thickening and hyperenhancement around the effusion. No right effusion. No pneumothorax. Lymph nodes: No thoracic adenopathy. Mediastinum: No pneumomediastinum. No mass. Heart and great vessels: No pericardial effusion. Normal cardiac chamber size. Scattered atherosclerotic plaques. No aortic aneurysm. Mildly dilated branch pulmonary arteries. No pulmonary emboli seen. Chest wall: Normal. No masses. Upper abdomen: Severe diffuse hepatic steatosis. Cholelithiasis. There is a 1 centimeter low-density well-circumscribed likely cystic lesion in the pancreatic body on series 2, image 108. No change since 2023. Bones: No fractures. No focal bone lesions. IMPRESSION: 1. Improving left lower lobe pneumonia with a small cavity. This appears to overlap with a radiation treatment field for prior lung cancer. Recommend continued follow-up. 2. Decreasing size left pleural effusion. There is some partial loculation along the inferior posterior medial left hemithorax with additional subpulmonic extent. 3. Mild pulmonary edema. 4. Diffuse hepatic steatosis. 5. There is a 1 centimeter low-density likely cystic pancreatic lesion. These are best characterized with MR abdomen MRCP/pancreas without and with IV contrast. Please note that all CT scans at this facility use dose modulation, iterative reconstruction, and/or weight-based dosing when appropriate to reduce radiation dose to as low as reasonably achievable. Dictated by Marifer Ball MD @ 01/26/2025 4:01:10 PM (Electronically Signed)
--- OUTSIDE RECORDS SUMMARY | 2025-01-26 15:27 | XMS_ITS ---
Author Name Interface, [id number] lity Address [address] [place] [address] [address] [place] [address] [facility] Address [address] [facility] [address] [place] [address] Allergies and Adverse Reactions Medication/Group Name Reaction [...] ol Oral 50 mg daily active 07/13 [place]-3 Fatty Acids Oral daily active Problems Diagnosis [...] schedule at his convenience. Ian Juárez MD [facility] Ian Juárez MD Copy to: Electronically signed by Ian Juárez MD 07/16/2023 09:46 CDT
--- OUTSIDE RECORDS SUMMARY | 2025-01-26 15:28 | XMS_ITS ---
Author Organization [facility] rvices Support Name Relationship Address Phone Chato He Guarantor [address] [place] [address] Unavailable Chato He Agent [address] [place] [address] Unavailable Chato He Next of Kin [address] [place] [address] Unavailable Insurance Providers Coverage Status Coverage Type Relationship to Subscriber Member Identifier Subscriber Identifier Group Identifier Payer Identifier and Other information Code: 349 Code System OID:[id number] .[id number]. 221.5 Code System Name: Source of Payment Typology (PHDSC) Display: Other Translation: Code: C1 Code System: OID:[id number] .[id number]. [id number] Code System Name: Insurance Type Code ([id number]) Display Name: Commercial Insurance Reason for Referral No Reasons for Referral Entered Social History Social History Observation Description Start Date End Date Code Code System Current Smoking Status Tobacco smoking consumption unknown [id number] SNOMED CT Sex Assigned At Male 1955 [id number] [facility] Gender Identity Sexual Orientation
--- OUTSIDE RECORDS SUMMARY | 2025-01-26 15:28 | XMS_ITS | CCD ---
Author Name Interface, [id number] lity Address [address] [place] [address] [address] [address] Organization [facility] Address [address] [facility] [address] [place] [address] Care Team Providers Care Executive Vice President And Chief Financial Officer Name Role Phone Ian Juárez MD Unavailable [...] ER Tab 20 mg daily active 07/13 [place]-3 Fatty Acids Oral daily active 07/13 Aspirin Oral orally 81.0 mg daily active 07/13 Atorvasta tin Oral orally 80.0 mg daily active Problems Diagnosis Status Date of Diagnosis Resolution Date Non-small cell lung cancer (disorder) Active Social History Date Name Value 07/14/2023 Sex Male
--- OUTSIDE RECORDS SUMMARY | 2025-01-26 15:29 | XMS_ITS ---
Author Name Interface, [id number] lity Address [address] [place] [address] [address] [place] [address] [facility] Address [address] [facility] [address] [place] [address] Allergies and Adverse Reactions Medication/Group Name Reaction [...] ol Oral 50 mg daily active 07/13 [place]-3 Fatty Acids Oral daily active Problems Diagnosis [...]
--- OUTSIDE RECORDS SUMMARY | 2025-01-26 15:29 | XMS_ITS | CCD ---
Author Name Interface, [id number] lity Address [address] [place] [address] [address] [address] Organization [facility] Address [address] [facility] [address] [place] [address] Care Team Providers Care Heat Transfer Technician Name Role Phone Ian Juárez MD Unavailable [...] ER Tab 20 mg daily active 07/13 [place]-3 Fatty Acids Oral daily active 07/13 Aspirin Oral orally 81.0 mg daily active 07/13 Atorvasta tin Oral orally 80.0 mg daily active Problems Diagnosis Status Date of Diagnosis Resolution Date Non-small cell lung cancer (disorder) Active Social History Date Name Value 07/14/2023 Sex Male
--- OUTSIDE RECORDS SUMMARY | 2025-01-26 15:29 | XMS_ITS | Patient Health Record ---
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 Name Role Phone Maria E Valdez [...] W/U Status Risk Notes Problem Tobacco abuse (8971418138) Tobacco abuse (Z72.0) Active confirmed Problem Low back pain (880028605) Low back pain (M54.5) Active confirmed Problem Essential hypertension (42509573) Essential hypertension (I10) Active confirmed Problem Diabetes mellitus type 2 in nonobese (963171660) Diabetes mellitus type 2 in nonobese (E11.9) Active confirmed Problem FH: Stroke (157154645) FH: stroke (Z82.3) Active confirmed Problem Polyneuropathy due to type 2 diabetes mellitus (589972173) Diabetic 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 associated with type 2 diabetes mellitus (E11.42) Active confirmed Plan Of Treatment Pending Test Test Name Order Date EKG 10/07/2018 URINALYSIS - UA IN HOUSE 05/18/2018 Insurance Providers Payer Name Payer Address Payer Phone Subscriber Number Group Number Insured Name Patient Relationship to Insured Coverage Start Date Coverage End Date Blue [employer] and Blue [facility] [address] [address] [place] [address] [id number] [id number] Chato Olivo Self - patient is the insured Medical (General) History Medical History History ICD Code Diabetes Hypertension Tobacco abuse Z72.0 Tobacco abuse Z82.3 FH: stroke E11.42 Diabetic 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 associated with type 2 diabetes mellitus M54.5 Low back pain Surgical History Surgery Date(Month/Year) Right total hip replacement 10/2019
[2025-01-26 15:41] LABS: Hematocrit* 33.0 % (37.0-53.0); Hemoglobin* 10.7 gm/dL (13.5-17.5); Immature Granulocytes Pct Auto 0.7 %; Mean Corpuscular HGB Conc 32 gm/dL (32-36); Mean Corpuscular Hemoglobin 30 pg (26-34); Mean Corpuscular Volume 94 fL (80-100); RDW Coefficient of Variation % 13.2 % (11.5-15.5); Red Blood Count* 3.52 m/uL (4.30-5.90); White Blood Count* 19.25 K/uL (4.50-11.00)
[2025-01-26 15:43] LABS: Immature Granulocytes Abs Auto 0.10 K/uL (0.00-0.30); Lymphocytes Absolute Auto 0.70 K/uL (0.90-2.90); Slide Review Reflex No
[2025-01-26 15:49] LABS: Fecal Occult Blood* Negative (Negative)
[2025-01-26 16:01] LABS: Albumin* 2.8 g/dL (3.3-5.0); Chloride* 94 mmol/L (96-114); Potassium* 4.3 mmol/L (3.6-5.1); Sodium* 133 mmol/L (135-149)
[2025-01-26 16:02] LABS: INR 1.60 (0.91-1.10); Prothrombin Time 20.0 Seconds
[2025-01-26 16:04] LABS: Alanine Aminotransferase* 57 U/L (4-50); Alkaline Phosphatase* 344 U/L (40-150); Anion Gap 13 mEq/L (7-15); Aspartate Amino Transferase* 56 U/L (12-35); Bilirubin Total* 0.7 mg/dL (0.1-1.5); Blood Urea Nitrogen* 32 mg/dL (7-30); Carbon Dioxide* 26 mmol/L (20-32); Creatinine* 1.9 mg/dL (0.5-1.5); Est. Creatinine Clearance* 44.94; Estimated Glomerular Filt Rate 37 ml/min; Total Protein* 6.4 g/dL (6.0-8.3)
[2025-01-26 16:05] LABS: Calcium* 8.2 mg/dL (8.4-10.6); Glucose* 236 mg/dL (60-115)
[2025-01-26 16:50] LABS: NT Pro B Type NatriureticPept* 237 pg/mL (See Note)
[2025-01-26 17:26] LABS: Lactate* 4.2 mmol/L (0.5-1.9)
[2025-01-26] MEDS: PIPERACILLIN/TAZOBACTAM 3.375 GM in 0.9 % SODIUM CHLORIDE Mini-bag 100 ML IVPB (17:33)
[2025-01-26] MEDS: VANCOMYCIN 2 GM/400 ML 2 GM/400 ML PIGGYBACK IVPB (18:07)
[2025-01-26 18:10] LABS: Appearance Urine Clear (Clear)
--- NOTE | 2025-01-26 19:49 | PM.IMHP1 ---
Assessment and Plan Assessment and plan (1) Sepsis: Problem comment: -technically, meets severe sepsis criteria with WBC 19.25 (previously 28 -> 16), lactate 4.2 (some of this may be dehydration)-recheck on admission to floor, initially tachycardic 106, LLL pneumonia still present but improving -received 1 L NS bolus in ED (CT also showing some pulmonary edema), will give another liter over 2 hours followed by maintenance fluids, monitoring for fluid overload -BC x2 pending, UA rather unremarkable -add VBG, CRP, procalcitonin, repeat lactate, triple swab -holding antihypertensives, Lasix given intermittent SBP < 100 Status: Acute (2) Left lower lobe pneumonia: Problem comment: -CT shows Improving left lower lobe pneumonia with a small cavity. This appears to overlap with a radiation treatment field for prior lung cancer -WBC trending back up after decreasing while on IV antibiotics -no hypoxia, afebrile -continue Zosyn and vancomycin as initiated in ED (recent hospitalization and SNF stay), deescalating as appropriate -will need outpatient follow-up for repeat imaging (had to reschedule PET scan following previous hospitalization) Status: Acute (3) Pulmonary edema: Problem comment: -CT chest shows smooth interlobular septal thickening with a basal dependent predominance typical of pulmonary edema -monitor for fluid overload -home Lasix held given dehydration Status: Acute (4) Weakness: Problem comment: -generalized, fatigue, deconditioning - apparently refused to participate in therapies at SNF; suspect component of acute dehydration as well -CT head, chest, abdomen, pelvis all completed 01/12 and 01/26 -not cooperative with exam this evening -add Lyme panel, TSH, ESR, B12 -hold atorvastatin Status: Acute (5) Physical deconditioning: Problem comment: -prior to 1st hospitalization, in home setting, refusing to use walker, leaning on to ambulate -not participating in SNF therapies -query mood disorder component -PT/OT consults -psychosocial rehabilitation counselor for discharge planning/placement needs Status: Acute (6) Non-insulin dependent diabetes mellitus: Problem comment: -A1C 9.7 01/03/25 -holding home medications given poor oral intake -glucose and insulin sliding scale ACHS Status: Acute (7) Squamous cell carcinoma of lung, stage I: Problem comment: - diagnosed 07/17, [id number] Stage 1A2 - follows with [facility] in [place] - was due for PET scan 01/13 -rescheduled following previous hospital stay - CT shows developing cavitation, loculated pleural effusion, outpatient follow-up Status: Acute (8) Tobacco use: Problem comment: - active, approximately 15 cigarettes/day, declines nicotine replacement Status: Chronic (9) CARLY (acute kidney injury): Problem comment: -creatinine 1.9, baseline 1.2-1.5 -avoid nephrotoxic medications, renally dose antibiotics, IVF, recheck in a.m. Status: Acute (10) Transaminitis: Problem comment: -persists. AST/ALT improved from previous, alk phos elevated at 344 -CT chest shows Severe diffuse hepatic steatosis. Cholelithiasis -no abdominal pain, benign abdominal exam Status: Acute (11) Hepatic steatosis: Problem comment: -as noted on CT imaging, transaminitis -CT chest completed at outside facility November 2024 does not show upper abdomen abnormalities Status: Acute (12) Pancreatic lesion: Problem comment: -CT chest shows 1 centimeter low-density likely cystic pancreatic lesion -consider MRA/MRCP -general surgery consult for morning given this and liver abnormalities Status: Acute Plan Continue gentle IV hydration, IV antibiotics. Further workup pending. PT/OT. Will likely need placement again but will need patient cooperation with this. Total Time Spent Total Time Spent: Today I spent 90 minutes seeing the patient, reviewing Expanse and EPIC notes/diagnostics, discussing the care plan with our care time that includes social work, PT/OT, pharmacy, RT, usp and documenting my impressions and plan in the medical record. Hospitalist- H&P: HPI History of Present Illness Date Seen: 01/26/25 Chief complaint: hypotension Narrative: Chato He is a 69 year old male past medical history significant for diabetes mellitus, hypertension, CKD stage IIIB, squamous cell carcinoma of lung, active tobacco use, CVA with right-sided weakness is admitted to the hospital from the ED for ongoing weakness. Patient was admitted to this hospital 01/12-01/15/2025 with sepsis, pneumonia. Was treated with IV vancomycin and Zosyn, transitioned to cefdinir on day of discharge. Was transferred to [facility] in [place] for ongoing rehabilitation in setting of weakness. Was initially seen by PCP, Dr. Dorinda Washington on 01/03/2025 with report of 2 week history of generalized weakness, decrease in energy levels. Patient is seen this evening, lying in bed. is not present. He tells me he left [facility] this morning without completing his stay. His took him to see Dr. Johnson at the [facility] and was transferred to the ER via EMS. He reports ongoing weakness and fatigue. Did not like his stay at [facility]. He does not tell me why. His told the nurse that he was upset that he was not able to smoke. He tells me he did not eat or drink much at all. Picking only at his food and drinking very little fluids. He tells me he also refused to participate in therapies while he was there. Currently, he denies headache or dizziness. Denies recent chest pain or shortness of breath. Denies cough. Denies recent fevers. Denies abdominal pain, nausea, vomiting. Last bowel movement was yesterday and normal for him. Denies UTI symptoms. Review of Systems Narrative: REVIEW OF SYSTEMS: Complete review of systems performed and negative unless otherwise stated in HPI or below. Medical Decision Making Medical Decision Making Code Status: DNR/DNI Has patient completed a Health Care Directive: Yes During This Stay, Who Would You Like To Make Decisions For You In The Event You Are Unable To Make Them For Yourself?: Gracia (spouse) [phone] [facility] Medical History (Updated 01/26/25 @ 20:39 by Debi Orozco PA-C) CKD stage 3b, GFR 30-44 ml/min ?N18.32 - Chronic kidney disease, stage 3b (ICD-10) Non-insulin dependent diabetes mellitus Stroke ?I63.9 - Cerebral infarction, unspecified (ICD-10) Squamous cell carcinoma of lung, stage I ?C34.90 - Malignant neoplasm of unspecified part of unspecified bronchus or lung (ICD-10) Right sided weakness ?R53.1 - Weakness (ICD-10) Tobacco use ?Z72.0 - Tobacco use (ICD-10) Peripheral neuropathy ?G62.9 - Polyneuropathy, unspecified (ICD-10) Essential hypertension ?I10 - Essential (primary) hypertension (ICD-10) Abdominal aneurysm ?I71.40 - Abdominal aortic aneurysm, without rupture, unspecified (ICD-10) Surgical History H/O total hip arthroplasty ?Z96.649 - Presence of unspecified artificial hip joint (ICD-10) S/P bronchoscopy with biopsy ?Z98.890 - Other specified postprocedural states (ICD-10) Social History Narrative: Delaney would be medical decision maker if needed. Requests DNR/DNI status. Retired, smokes 15-20 cigarettes/day. No concerning ETOH use. What is your current living situation?: I presently have a place to live Problems where you live: no known problems Problems where you live details: n/a In the past 12 months, utilities in danger of being shut off: no In past 12 months, lack of transportation kept you from medical appts, meetings, work, or getting things needed for daily living: no In the past 12 mos, have been you worried that your food would run out before you had money to buy more?: never true In the past 12 mos, the food you bought just didn't last and you didn't have money to buy more?: never true Highest level of school completed/degree received: high school graduate Smoking Status: Current every day smoker What tobacco products do you use: cigarettes Smoking packs per day: 0.75 Smoking cigarettes per day: 15.0 Years smoked: 50 Smoking pack-years: 37.50 Smoking quit date/years: >15 years ago Do you use any of these nicotine containing products: None Second hand tobacco smoke exposure: No How often do you have a drink containing alcohol: 2-4 times a month Alcohol type: beer How many standard drinks containing alcohol do you have on a typical day: 1 or 2 How often do you have six or more drinks on one occasion: Never AUDIT-C Alcohol total score: 2 Non-prescribed substance use: denies use Caffeine: Yes How often does anyone, including family, friends and others, physically hurt you: never How often does anyone, including family, friends and others, insult or talk down to you: never How often does anyone, including family, friends and others, threaten you with harm: never How often does anyone, including family, friends and others, scream or curse at you: never service: No Meds Home Medications and Allergies Home Medications ?Medication ?Instructions ?Recorded ?Confirmed ?Type allopurinol 100 mg tablet 100 mg PO DAILY 11/19/23 01/16/25 History amitriptyline 10 mg tablet 10 mg PO HS 11/19/23 01/16/25 History amlodipine 10 mg tablet 10 mg PO DAILY 11/19/23 01/16/25 History atorvastatin 80 mg tablet 80 mg PO HS 11/19/23 01/16/25 History glipizide 10 mg tablet, extended 20 mg PO DAILY 11/19/23 01/16/25 History release 24 hr naloxone 4 mg/actuation nasal spray 1 spray intranasal .PRN PRN 11/19/23 01/16/25 History apixaban 5 mg tablet (Eliquis) 5 mg PO BID 01/12/25 01/16/25 History lisinopril 10 mg tablet 10 mg PO DAILY 01/13/25 01/16/25 History polyethylene glycol 3350 17 17 g PO DAILY 01/13/25 01/16/25 History gram/dose oral powder sitagliptin phosphate 50 mg tablet 50 mg PO DAILY 01/13/25 01/16/25 History (Januvia) metformin 500 mg tablet 500 mg PO BID 01/16/25 01/16/25 History cefdinir 300 mg capsule 300 mg PO BID 4 days #8 caps 01/18/25 01/16/25 Rx furosemide 20 mg tablet 20 mg PO DAILY 3 days #3 tabs 01/18/25 Rx hydrocodone 5 mg-acetaminophen 325 1 tab PO BID PRN pain #10 tabs 01/18/25 Rx mg tablet insulin aspart U-100 100 unit/mL See Rx Instructions .Route 01/18/25 Rx (3 mL) subcutaneous pen .COMPLEX #15 mL Allergies Allergy/AdvReac Type Severity Reaction Status Date / Time No Known Drug Allergies Allergy Verified 01/16/25 09:43 Exam Narrative: Exam Narrative: PHYSICAL EXAM General: Rather flat affect, answers questions appropriately, appears older than stated age but in NAD HEENT: Normocephalic, atraumatic, sclera white, EOMI, oral mucosa dry Cardiovascular: RRR, S1S2. No pitting edema Pulmonary: CTA bilaterally without rhonchi, rales, expiratory wheezes. No dyspnea on room air Abdominal: Soft, nondistended, NTTP, no guarding Neurological: Alert, answering questions appropriately, attempted reflexes but patient not cooperating (tells me they work) Extremities: No gross joint deformity or swelling. AROMI. Neurovascularly intact Skin: Warm, dry. Const: Vital Signs, click to edit/add: Vital Signs - 24 hr 01/26/25 14:51 01/26/25 16:30 01/26/25 16:31 Temperature 96 F L Pulse Rate 100 101 H Pulse Rate [Left P ulse Oximeter] Pulse Rate [Pulse Oximeter] 113 H Respiratory Rate 18 Blood Pressure 91/68 Blood Pressure [Le ft Upper Arm] 94/69 Blood Pressure [Ri ght Arm] Pulse Oximetry 95 95 94 Oxygen Delivery Me thod Room Air 01/26/25 16:45 01/26/25 17:00 01/26/25 18:35 Temperature 96.3 F L Pulse Rate 98 106 H Pulse Rate [Left P ulse Oximeter] 98 Pulse Rate [Pulse Oximeter] Respiratory Rate 20 Blood Pressure Blood Pressure [Le ft Upper Arm] Blood Pressure [Ri ght Arm] 111/79 Pulse Oximetry 95 97 95 Oxygen Delivery Dc thod Room Air Hospitalist - H&P: Result Labs Labs: Short CBC 01/26/25 Range/Units 15:21 WBC 19.25 H (4.50-11.00) K/uL Hgb 10.7 L (13.5-17.5) gm/dL Hct 33.0 L (37.0-53.0) % Plt Count 614 H (140-440) K/uL BMP 01/26/25 15:21 Sodium 133 L Potassium 4.3 Chloride 94 L Carbon Dioxide 26 BUN 32 H Creatinine 1.9 H Glucose 236 H Calcium 8.2 L Liver Function 01/26/25 Range/Units 15:21 Total Bilirubin 0.7 (0.1-1.5) mg/dL AST 56 H (12-35) U/L ALT 57 H (4-50) U/L Alkaline Phosphatase 344 H (40-150) U/L Albumin 2.8 L (3.3-5.0) g/dL Urine 01/26/25 Range/Units 18:01 Urine Color Yellow (Yellow) Urine Appearance Clear (Clear) Urine pH 5.0 (5.0-8.5) Ur Specific [place] 1.015 (1.000-1.030) Urine Protein Negative (Negative) Urine Glucose (UA) Negative (Negative) ECG Interpretation: Ordered, awaiting completion Imaging CT scan - chest: Attestation: I have reviewed the pertinent imaging results. Radiologist's impression: Airway: Normal tracheobronchial tree. Lungs: Left lower lobe pneumonia again seen. The area of necrosis/cavitation is slightly smaller and measures about 2.5 x 2.5 cm with a small air-fluid level. No new areas of necrosis or cavitation. There is some smooth interlobular septal thickening with a basal dependent predominance typical of pulmonary edema. There is some mild basilar atelectasis. There are not any new consolidations. No significant emphysema. Pleura: There is a small left pleural effusion that is slightly loculated medially and inferiorly. There is also sub pulmonic extent. It measures 6.7 x 3.4 cm on series 2, image 78. This has decreased in size since the comparison exam. There is some associated pleural thickening and hyperenhancement around the effusion. No right effusion. No pneumothorax. Lymph nodes: No thoracic adenopathy. Mediastinum: No pneumomediastinum. No mass. Heart and great vessels: No pericardial effusion. Normal cardiac chamber size. Scattered atherosclerotic plaques. No aortic aneurysm. Mildly dilated branch pulmonary arteries. No pulmonary emboli seen. Chest wall: Normal. No masses. Upper abdomen: Severe diffuse hepatic steatosis. Cholelithiasis. There is a 1 centimeter low-density well-circumscribed likely cystic lesion in the pancreatic body on series 2, image 108. No change since 2023. Bones: No fractures. No focal bone lesions. IMPRESSION: 1. Improving left lower lobe pneumonia with a small cavity. This appears to overlap with a radiation treatment field for prior lung cancer. Recommend continued follow-up. 2. Decreasing size left pleural effusion. There is some partial loculation along the inferior posterior medial left hemithorax with additional subpulmonic extent. 3. Mild pulmonary edema. 4. Diffuse hepatic steatosis. 5. There is a 1 centimeter low-density likely cystic pancreatic lesion. These are best characterized with MR abdomen MRCP/pancreas without and with IV contrast.
--- NOTE | 2025-01-26 19:53 | PC.NURSE ---
End of Shift Note (Patient's arrival to 19:00) Patient has been cooperative and pleasant. VSS. A&Ox4. Afebrile. Patient complains of weakness and was not able to stand on scale upon arrival. Uses call light appropriately. Call light with reach.
[2025-01-26 20:15] LABS: HCO3 VBG 29 mmol/L (21-28); Lactate* 1.8 mmol/L (0.5-1.9); PCO2 VBG 43 mmHG (40-50); PO2 VBG 32.9 mmHG (25-47); pH VBG 7.442 (7.32-7.43)
[2025-01-26 20:28] LABS: Procalcitonin* 0.62 ng/mL (<0.50)
[2025-01-26 21:25] LABS: Erythrocyte SedimentationRate* 86 mm/hr (2-15)
[2025-01-26 21:31] LABS: Vitamin B12* > 1000 pg/mL (243-894)
[2025-01-26] MEDS: APIXABAN 5 MG TABLET PO (22:10)
[2025-01-26] MEDS: AMITRIPTYLINE HCL 10 MG TABLET PO (22:10)
[2025-01-27] VITALS (8 sets, daily range): BP systolic 101–138; BP diastolic 73–90; PULSE 86–110; RESP 16–20; TEMP 36–36.2; O2SAT 91–96
[2025-01-27] LABS: PCR FLU A Negative PCR FLU A (Negative); PCR FLU B Negative PCR FLU B (Negative); PCR RSV Negative PCR RSV (Negative); SARS PCR* Negative SARS-CoV-2 (Negative)
[2025-01-27] MEDS: PIPERACILLIN/TAZOBACTAM 3.375 GM in 0.9 % SODIUM CHLORIDE Mini-bag 100 ML IVPB ×4 (00:44→19:50)
[2025-01-27 07:17] LABS: Hematocrit* 26.1 % (37.0-53.0); Hemoglobin* 8.5 gm/dL (13.5-17.5); Mean Corpuscular HGB Conc 33 gm/dL (32-36); Mean Corpuscular Hemoglobin 30 pg (26-34); Mean Corpuscular Volume 93 fL (80-100); Red Blood Count* 2.81 m/uL (4.30-5.90); White Blood Count* 13.74 K/uL (4.50-11.00)
--- NOTE | 2025-01-27 07:17 | PC.NURSE ---
The patient is alert and orientated, although tends to have a negative attitude. The patient is noted to have positive orthostatics. Reports R knee pain and claims that he can't bear weight on it. Up Ax2 to stand at bedside, the patient is using the urinal independently. Slept well throughout the night. Iv fluids infusing. Call light within reach. Maite SHAW BSN
[2025-01-27 07:28] LABS: Slide Review Reflex No
[2025-01-27 07:30] LABS: Albumin* 2.3 g/dL (3.3-5.0); Chloride* 101 mmol/L (96-114); Potassium* 3.5 mmol/L (3.6-5.1); Sodium* 132 mmol/L (135-149)
[2025-01-27 07:32] LABS: Blood Urea Nitrogen* 32 mg/dL (7-30); Creatinine* 1.5 mg/dL (0.5-1.5); Est. Creatinine Clearance* 51.32; Estimated Glomerular Filt Rate 49 ml/min
[2025-01-27 07:33] LABS: Alanine Aminotransferase* 42 U/L (4-50); Alkaline Phosphatase* 266 U/L (40-150); Anion Gap 6 mEq/L (7-15); Aspartate Amino Transferase* 43 U/L (12-35); Bilirubin Total* 0.4 mg/dL (0.1-1.5); Calcium* 7.4 mg/dL (8.4-10.6); Carbon Dioxide* 25 mmol/L (20-32); Glucose* 97 mg/dL (60-115); INR 1.50 (0.91-1.10); Prothrombin Time 19.0 Seconds; Total Protein* 5.4 g/dL (6.0-8.3)
--- NOTE | 2025-01-27 07:44 | P.IMPN_ITS ---
Assessment and Plan Assessment and plan (1) Left lower lobe pneumonia: Problem comment: -CT shows persistent but improving left lower lobe pneumonia, noted to have WBC of 19 (previously 16) + left shift and elevated lactate -no hypoxia, afebrile -given Zosyn and Vanco 01/26; continue Zosyn, will not continue Vanco 01/27 given historically negative MRSA swabs (repeat swab pending) -will need outpatient follow-up for repeat imaging (had to reschedule PET scan following previous hospitalization) Status: Acute (2) Weakness: Problem comment: - generalized. ddx includes metabolic abnormality, deconditioning, progression of malignancy, persistent vs new PNA - ESR elevated (consider PMR given new anemia), although does not have significant arthralgias. Notably treated with a week of prednisone in early December by PCP without improvement in symptoms - TSH mildly elevated, will add low-dose levothyroxine 01/27 - goals of care include Status: Acute (3) Sepsis: Problem comment: -01/26, met severe sepsis criteria with WBC 19.25 (previously 28 -> 16), lactate 4.2-->1.8 -lactate and VS normalized after IVF rehydration, no need for pressors -add VBG, CRP, procalcitonin, repeat lactate, triple swab -holding antihypertensives, Lasix given intermittent SBP < 100 -RESOLVED 01/27 Status: Acute (4) Stroke: Problem comment: - history of L cerebral hemisphere (2022), posterior cerebral hemispheres and L basal ganglia + L frontal and parietal lobs (2023) - on high dose statin + Apixaban, residual R sided weakness - HOLDING Apixaban as of 01/27 Status: Chronic (5) Squamous cell carcinoma of lung, stage I: Problem comment: - diagnosed 07/17, [id number] Stage 1A2 - follows with [facility] in [place] - was due for PET scan 01/13 -rescheduled following previous hospital stay - CT 01/27/25 shows cavitation over area of previous radiation Status: Acute (6) Pancreatic lesion: Problem comment: -CT chest shows 1 centimeter low-density likely cystic pancreatic lesion -reviewed with General surgery, recommend MR of abdomen, will continue to follow LFTs to assess if these needs to be completed as an inpatient Status: Acute (7) Hepatic steatosis: Problem comment: -as noted on CT imaging, transaminitis -CT chest completed at outside facility November 2024 does not show upper abdomen abnormalities Status: Acute (8) CARLY (acute kidney injury): Problem comment: -creatinine 1.9 on admission 01/26, baseline 1.2-1.5 -back to 1.5 (baseline CKD 3b) on 01/27 Status: Acute (9) Transaminitis: Problem comment: -persists. AST/ALT improved from previous, alk phos elevated at 344 -CT chest shows Severe diffuse hepatic steatosis, pancreatic lesion, cholelithiasis -no abdominal pain, benign abdominal exam, continue to follow Status: Acute (10) Non-insulin dependent diabetes mellitus: Problem comment: -A1C 9.7 01/03/25 -holding home medications given poor oral intake -glucose and insulin sliding scale ACHS Status: Acute (11) Peripheral neuropathy: Problem comment: - takes 1-2 Hydrocodone-Acetaminophen + Amitriptyline at HS Status: Acute (12) Anemia: Problem comment: - normocytic - ddx: PMR, Anemia of chronic disease, atypica iron deficiency - obtain iron studies, FOBT was negative - HOLDING Eliquis as of 01/27 - follow symptoms closely, consider another steroid trial Status: Acute Subjective Date Seen: 01/27/25 Interval history: Chato was admitted to the hospital on 01/26 for weakness in the setting of persistent L sided PNA. Comorbidites include known squamous cell carcinoma of the lung, history of CVA x2 (L cerebral hemisphere in 2022, posterior cerebral hemispheres, L basal ganglia + L frontal and parietal lobes 2023), DM2, hyperlipidemia, neuropathy. He was hospitalized here from 01/12-01/16 and discharged to TCU in [place]. He went from his TCU to a scheduled appointment yesterday, found to be weak and hypotensive and re-presented to the emergency room. Imaging revealed a persistent left lower lobe pneumonia, and IV vancomycin and Zosyn initiated. This morning, he is still very weak. Normotensive, heart rate 95, afebrile. BG 125-271 Hgb is 8.5 (down from 10.2 on discharge 01/16), normocytic. Platelets 461. FOBT pending, Eliquis on hold. Notably elevated ESR on 01/26, no significant arthralgias. Exam Narrative: Exam Narrative: GEN: Alert and sitting comfortably in bedside chair HEENT: EOMIs bilaterally, no scleral icterus, + pallor CV: RRR R: LCTA bilaterally Ext: wwp, no concerning edema Skin: Scattered bruising, no other concerning findings Psych: Appropriate Const: Vital Signs, click to edit/add: Vital Signs - 24 hr 01/26/25 14:51 01/26/25 16:30 01/26/25 16:31 Temperature 96 F L Pulse Rate 100 101 H Pulse Rate [Left P ulse Oximeter] Pulse Rate [Pulse Oximeter] 113 H Pulse Rate [orthos tatic lying Left P ulse Oximeter] Pulse Rate [orthos tatic sitting Left Pulse Oximeter] Pulse Rate [orthos tatic standing Lef t Pulse Oximeter] Respiratory Rate 18 Blood Pressure 91/68 Blood Pressure [Le ft Arm] Blood Pressure [Le ft Upper Arm] 94/69 Blood Pressure [Ri ght Arm] Blood Pressure [or thostatic lying Le ft Arm] Blood Pressure [or thostatic sitting Left Arm] Blood Pressure [or thostatic standing Left Arm] Pulse Oximetry 95 95 94 Oxygen Delivery Me thod Room Air 01/26/25 16:45 01/26/25 17:00 01/26/25 18:35 Temperature 96.3 F L Pulse Rate 98 106 H Pulse Rate [Left P ulse Oximeter] 98 Pulse Rate [Pulse Oximeter] Pulse Rate [orthos tatic lying Left P ulse Oximeter] Pulse Rate [orthos tatic sitting Left Pulse Oximeter] Pulse Rate [orthos tatic standing Lef t Pulse Oximeter] Respiratory Rate 20 Blood Pressure Blood Pressure [Le ft Arm] Blood Pressure [Le ft Upper Arm] Blood Pressure [Ri ght Arm] 111/79 Blood Pressure [or thostatic lying Le ft Arm] Blood Pressure [or thostatic sitting Left Arm] Blood Pressure [or thostatic standing Left Arm] Pulse Oximetry 95 97 95 Oxygen Delivery Me thod Room Air 01/26/25 18:35 01/26/25 21:23 01/26/25 22:14 Temperature 97.0 F L Pulse Rate Pulse Rate [Left P ulse Oximeter] 95 Pulse Rate [Pulse Oximeter] Pulse Rate [orthos tatic lying Left P ulse Oximeter] 101 H Pulse Rate [orthos tatic sitting Left Pulse Oximeter] 114 H Pulse Rate [orthos tatic standing Lef t Pulse Oximeter] 129 H Respiratory Rate 18 Blood Pressure Blood Pressure [Le ft Arm] 122/77 Blood Pressure [Le ft Upper Arm] Blood Pressure [Ri ght Arm] Blood Pressure [or thostatic lying Le ft Arm] 124/94 H Blood Pressure [or thostatic sitting Left Arm] 106/74 Blood Pressure [or thostatic standing Left Arm] 86/65 L Pulse Oximetry 95 93 Oxygen Delivery Me thod Room Air 01/26/25 23:00 01/26/25 23:00 01/27/25 03:00 Temperature Pulse Rate 91 Pulse Rate [Left P ulse Oximeter] 96 Pulse Rate [Pulse Oximeter] Pulse Rate [orthos tatic lying Left P ulse Oximeter] Pulse Rate [orthos tatic sitting Left Pulse Oximeter] Pulse Rate [orthos tatic standing Lef t Pulse Oximeter] Respiratory Rate 18 16 Blood Pressure Blood Pressure [Le ft Arm] 118/76 Blood Pressure [Le ft Upper Arm] Blood Pressure [Ri ght Arm] Blood Pressure [or thostatic lying Le ft Arm] Blood Pressure [or thostatic sitting Left Arm] Blood Pressure [or thostatic standing Left Arm] Pulse Oximetry 94 Oxygen Delivery Me thod Room Air Labs Labs: Laboratory Results - last 24 hr 01/26/25 01/26/25 01/26/25 15:21 15:26 16:23 WBC 19.25 H RBC 3.52 L Hgb 10.7 L Hct 33.0 L MCV 94 MCH 30 MCHC 32 RDW Coeff of Maribel 13.2 Plt Count 614 H Neut % (Auto) 90.1 H Lymph % (Auto) 3.7 L [place] % (Auto) 4.9 Eos % (Auto) 0.1 Baso % (Auto) 0.5 Neut # (Auto) 17.30 H Lymph # (Auto) 0.70 L [place] # (Auto) 0.90 Eos # (Auto) 0.00 Baso # (Auto) 0.10 Abs Immat Gran (auto) 0.10 Imm/Tot Granulo (auto) 0.7 ESR 86 H INR 1.60 H VBG pH VBG pCO2 VBG pO2 VBG HCO3 Sodium 133 L Potassium 4.3 Chloride 94 L Carbon Dioxide 26 Anion Gap 13 BUN 32 H Creatinine 1.9 H Estimated Creat Clear 44.94 Estimated GFR 37 Glucose 236 H Lactate 4.2 H* Calcium 8.2 L Magnesium 1.7 Total Bilirubin 0.7 AST 56 H ALT 57 H Alkaline Phosphatase 344 H C-Reactive Protein 4.5 H NT-Pro-B Natriuret Pep 237 Total Protein 6.4 Albumin 2.8 L Vitamin B12 > 1000 H Procalcitonin 0.62 H TSH 5.680 H Urine Color Urine Appearance Urine pH Ur Specific Occidental Urine Protein Urine Glucose (UA) Urine Ketones Urine Blood Urine Nitrite Urine Bilirubin Urine Urobilinogen Ur Leukocyte Esterase Urine RBC Urine WBC Ur Squamous Epith Cells Urine Bacteria Stool Occult Blood Negative SARS-CoV-2 (PCR) Influenza Type A (PCR) Influenza Type B (PCR) RSV (PCR) Lab Acknowledgement Test Added Blood Type O Negative Antibody Screen NEGATIVE 01/26/25 01/26/25 01/26/25 18:01 19:54 20:12 WBC RBC Hgb Hct MCV MCH MCHC RDW Coeff of Maribel Plt Count Neut % (Auto) Lymph % (Auto) [place] % (Auto) Eos % (Auto) Baso % (Auto) Neut # (Auto) Lymph # (Auto) [place] # (Auto) Eos # (Auto) Baso # (Auto) Abs Immat Gran (auto) Imm/Tot Granulo (auto) ESR INR VBG pH 7.442 H VBG pCO2 43 VBG pO2 32.9 VBG HCO3 29 H Sodium Potassium Chloride Carbon Dioxide Anion Gap BUN Creatinine Estimated Creat Clear Estimated GFR Glucose Lactate 1.8 Calcium Magnesium Total Bilirubin AST ALT Alkaline Phosphatase C-Reactive Protein NT-Pro-B Natriuret Pep Total Protein Albumin Vitamin B12 Procalcitonin TSH Urine Color Yellow Urine Appearance Clear Urine pH 5.0 Ur Specific Occidental 1.015 Urine Protein Negative Urine Glucose (UA) Negative Urine Ketones Negative Urine Blood 2+ A Urine Nitrite Negative Urine Bilirubin Negative Urine Urobilinogen 0.2 Ur Leukocyte Esterase Negative Urine RBC 0-2 Urine WBC 0-2 Ur Squamous Epith Cells Few Urine Bacteria None Stool Occult Blood SARS-CoV-2 (PCR) Influenza Type A (PCR) Influenza Type B (PCR) RSV (PCR) Lab Acknowledgement Test Added Blood Type Antibody Screen 01/26/25 01/26/25 01/27/25 20:19 22:14 06:40 WBC 13.74 H RBC 2.81 L Hgb 8.5 L Hct 26.1 L MCV 93 MCH 30 MCHC 33 RDW Coeff of Maribel Plt Count 461 H Neut % (Auto) Lymph % (Auto) [place] % (Auto) Eos % (Auto) Baso % (Auto) Neut # (Auto) Lymph # (Auto) [place] # (Auto) Eos # (Auto) Baso # (Auto) Abs Immat Gran (auto) Imm/Tot Granulo (auto) ESR INR VBG pH VBG pCO2 VBG pO2 VBG HCO3 Sodium 132 L Potassium 3.5 L Chloride 101 Carbon Dioxide 25 Anion Gap 6 L BUN 32 H Creatinine 1.5 Estimated Creat Clear 51.32 Estimated GFR 49 Glucose 97 Lactate Calcium 7.4 L Magnesium Total Bilirubin 0.4 AST 43 H ALT 42 Alkaline Phosphatase 266 H C-Reactive Protein 3.5 H NT-Pro-B Natriuret Pep Total Protein 5.4 L Albumin 2.3 L Vitamin B12 Procalcitonin TSH Urine Color Urine Appearance Urine pH Ur Specific Occidental Urine Protein Urine Glucose (UA) Urine Ketones Urine Blood Urine Nitrite Urine Bilirubin Urine Urobilinogen Ur Leukocyte Esterase Urine RBC Urine WBC Ur Squamous Epith Cells Urine Bacteria Stool Occult Blood SARS-CoV-2 (PCR) Negative SARS-CoV-2 Influenza Type A (PCR) Negative PCR FLU A Influenza Type B (PCR) Negative PCR FLU B RSV (PCR) Negative PCR RSV Lab Acknowledgement Test Added Blood Type Antibody Screen
[2025-01-27] MEDS: HYDROCODONE-ACETAMIN 5-325 MG 1 TAB PO ×2 (08:15→20:17)
[2025-01-27] MEDS: OMEPRAZOLE 20 MG CAPSULE DR PO ×2 (09:27→20:18)
[2025-01-27] MEDS: 0.9 % SODIUM CHLORIDE 500 ML 500 ML IV (09:27)
--- NOTE | 2025-01-27 11:11 | REH.PT ---
Patient with low hemoglobin, PT will hold per nursing, reapproach in AM
[2025-01-27 14:00] LABS: Hemoglobin* 8.6 gm/dL (13.5-17.5)
--- NOTE | 2025-01-27 14:20 | PC.SOCIAL ---
Discharge planning: Met with pt, and physician in room regarding d/c plan. Pt was at [facility] and went to his clinic appointment from [facility] and was sent to hospital from clinic. has informed [facility] he will not be returning. and pt both shared they were unhappy with the level of care provided there and that they would like pt to go elsewhere to another rehab stay at discharge. Pt and are aware insurance will only cover a stay at a [facility]p for rehab if pt is participating and benefitting from rehab. Pt and are aware that pt needs to show evidence of benefitting and participating in rehab while hospitalized in order to be accepted into a usp rehab program under insurance coverage. and pt are aware there is an option for them to pay privately for care at a usp which is not covered by insurance called medical terminologist care if he wants to go to a usp but not participate in rehab there. states she has looked over the list of rehab facilities and the Department of Health ratings and has created this list of acceptable facilities for pt at discharge in order of preference: 1. [facility] 2. [facility] 3. [facility] in [place] 4. [facility] in [place] wind up worker to follow up as needed.
--- NOTE | 2025-01-27 14:39 | REH.OT ---
Low Hbg, hold per nursing
--- NOTE | 2025-01-27 14:40 | PC.SOCIAL ---
[facility] called for availability per family request. 1. [facility]-Has three other referrals and will likely not availability. 2. [facility]-Does not have an appropriate bed. 3. [facility] [phone]/ fax#[phone]. Nargis in admissions has no beds for Friday and Friday looks tight as well for availability but a referral could be sent. 4. [facility] Admissions [phone]. Message left on availability.
--- NOTE | 2025-01-27 14:55 | PC.NURSE ---
End of shift report [id number]: Alert and oriented x 3. Pain to bilateral feet, right knee and right rib reported. Pain well managed with current regimen. Denies any SOB or chest pain. Transfers with Ax2 pivot to [facility]. Lung sounds clear, diminished in bilateral bases. Denies cough.
--- NOTE | 2025-01-27 19:45 | PC.NURSE ---
Pt denies pain. Denies dinner, held sliding scale insulin, see MAR. Asks to sleep.
[2025-01-27] MEDS: AMITRIPTYLINE HCL 10 MG TABLET PO (20:17)
[2025-01-27] MEDS: SODIUM CHLORIDE 0.9 % (FLUSH) 10 ML SYRINGE 5 ML IVF (20:18)
[2025-01-27] MEDS: ATORVASTATIN CALCIUM 40 MG TABLET 80 MG PO (20:18)
[2025-01-28] VITALS (8 sets, daily range): BP systolic 121–144; BP diastolic 85–94; PULSE 84–118; RESP 16–18; TEMP 35.9–36.7; O2SAT 93–95
[2025-01-28] MEDS: PIPERACILLIN/TAZOBACTAM 3.375 GM in 0.9 % SODIUM CHLORIDE Mini-bag 100 ML IVPB ×4 (01:52→19:34)
[2025-01-28 07:11] LABS: Hematocrit* 26.3 % (37.0-53.0); Hemoglobin* 8.5 gm/dL (13.5-17.5); Mean Corpuscular HGB Conc 32 gm/dL (32-36); Mean Corpuscular Hemoglobin 30 pg (26-34); Mean Corpuscular Volume 94 fL (80-100); Red Blood Count* 2.80 m/uL (4.30-5.90); White Blood Count* 11.70 K/uL (4.50-11.00)
[2025-01-28 07:31] LABS: Albumin* 2.3 g/dL (3.3-5.0); Chloride* 105 mmol/L (96-114); Potassium* 3.6 mmol/L (3.6-5.1); Sodium* 136 mmol/L (135-149)
[2025-01-28 07:33] LABS: Iron* 34 ug/dL (49-181)
[2025-01-28 07:34] LABS: Alanine Aminotransferase* 39 U/L (4-50); Aspartate Amino Transferase* 47 U/L (12-35); Blood Urea Nitrogen* 22 mg/dL (7-30); Creatinine* 1.4 mg/dL (0.5-1.5); Est. Creatinine Clearance* 59.46; Estimated Glomerular Filt Rate 54 ml/min
[2025-01-28 07:35] LABS: Alkaline Phosphatase* 255 U/L (40-150); Anion Gap 5 mEq/L (7-15); Bilirubin Total* 0.4 mg/dL (0.1-1.5); Calcium* 7.6 mg/dL (8.4-10.6); Carbon Dioxide* 26 mmol/L (20-32); Glucose* 108 mg/dL (60-115); Total Protein* 5.4 g/dL (6.0-8.3)
[2025-01-28 07:36] LABS: Slide Review Reflex No
[2025-01-28 07:42] LABS: Percent Iron Saturation 27 % (20-50); Total Iron Binding Capacity 127 ug/dL (261-462)
--- NOTE | 2025-01-28 07:43 | PC.NURSE ---
Pt is alert and oriented x3. Afebrile. Pt reports 7/10 pain in right leg, pain managed with PRN medication. Pt denies, chest pain, SOB and N/V. Pt is voiding, tolerating a regular diet.
[2025-01-28] MEDS: HYDROCODONE-ACETAMIN 5-325 MG 1 TAB PO (08:18)
[2025-01-28] MEDS: OMEPRAZOLE 20 MG CAPSULE DR PO ×2 (08:18→20:30)
[2025-01-28] MEDS: LEVOTHYROXINE 50 MCG TABLET PO (08:18)
--- NOTE | 2025-01-28 10:56 | PC.SOCIAL ---
Discharge planning: Called back to SNF facilities requested by to ask about rehab and longterm care bed availability for Friday01/28/25 as this is now his anticipated discharge date. 1. [facility] - [phone] - has reviewed his information and is declining admission for rehab or meterman care. 2. [facility] - [phone] - is declining pt for admit in short term rehab or meterman care. 3. [facility] - [phone] (fax [phone]) Spoke with [facility] in admissions who stated they can review for short term rehab bed if pt starts participating consistently and will be discharged as a rehab patient. However, will not review without consistent proof of participation in therapy at the hospital, so referral is not being sent at this time. Facility does not have any longterm care beds available. 4. [facility] - [phone] - Outgoing message in admissions stated there are no beds currently available. Left message requesting call back if there are short term or longterm beds available for Friday. 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
[2025-01-28] MEDS: INSULIN ASPART 100 UNIT/ML SUBCUT ×3 (12:38→20:31)
--- NOTE | 2025-01-28 13:58 | P.IMPN_ITS ---
Assessment and Plan Assessment and plan (1) Left lower lobe pneumonia: Problem comment: -CT shows persistent but improving left lower lobe pneumonia, noted to have WBC of 19 (previously 16) + left shift and elevated lactate -no hypoxia, afebrile -given Zosyn and Vanco 01/26; continue Zosyn, will not continue Vanco 01/27 given historically negative MRSA swabs (repeat swab pending) -will need outpatient follow-up for repeat imaging (had to reschedule PET scan following previous hospitalization) - 01/28 Afebrile, sepsis resolved, WBC improving, almost normalized. Continue IV zosyn. Status: Acute (2) Empyema: Problem comment: - 01/[address] Salcido, thoracic surgery at [facility], who recommended continuing treating with antibiotics for 4 weeks. He stated that he was food preparation supervisor this weekend if Chato's condition or vitals worsened, specifically if he had breakthrough worsening leukocytosis or fever while on antibiotics Status: Acute (3) Weakness: Problem comment: - generalized. ddx includes metabolic abnormality, deconditioning, progression of malignancy, persistent vs new PNA - ESR elevated (consider PMR given new anemia), although does not have significant arthralgias. Notably treated with a week of prednisone in early December by PCP without improvement in symptoms - TSH mildly elevated, will add low-dose levothyroxine 01/27 - 01/28 patient states he's been participating in therapies today. Stressed the importance of consistently participating in therapies. Discussed goals of care, which he and his state include aggressive treatment for cancer. Discussed that he will have to participate in therapies and get stronger to be a candidate for treatment, if cancer is found. Patient and were comfortable with this plan and now enthusiastic about therapies. Status: Acute (4) Stroke: Problem comment: - history of L cerebral hemisphere (2022), posterior cerebral hemispheres and L basal ganglia + L frontal and parietal lobs (2023) - on high dose statin + Apixaban, residual R sided weakness - HOLDING Apixaban as of 01/27 - 01/28 Hgb stable at 8.5, FOBT negative. Restart Apixaban. Monitor. Status: Chronic (5) Squamous cell carcinoma of lung, stage I: Problem comment: - diagnosed 07/17, [id number] Stage 1A2 - follows with [facility] in [place] - was due for PET scan 01/13 -rescheduled following previous hospital stay - CT 01/27/25 shows cavitation over area of previous radiation Status: Acute (6) Pancreatic lesion: Problem comment: -CT chest shows 1 centimeter low-density likely cystic pancreatic lesion -reviewed with General surgery, recommend MR of abdomen, will continue to follow LFTs to assess if these needs to be completed as an inpatient - MRCP as outpatient Status: Acute (7) Hepatic steatosis: Problem comment: -as noted on CT imaging, transaminitis -CT chest completed at outside facility November 2024 does not show upper abdomen abnormalities Status: Acute (8) CARLY (acute kidney injury): Problem comment: -creatinine 1.9 on admission 01/26, baseline 1.2-1.5 -back to 1.5 (baseline CKD 3b) on 01/27 - 01/28 remains at baseline, Cr 1.4 Status: Acute (9) Transaminitis: Problem comment: -persists. AST/ALT improved from previous, alk phos elevated at 344 -CT chest shows Severe diffuse hepatic steatosis, pancreatic lesion, cholelithiasis -no abdominal pain, benign abdominal exam, continue to follow Status: Acute (10) Non-insulin dependent diabetes mellitus: Problem comment: -A1C 9.7 01/03/25 -holding home medications given poor oral intake -glucose and insulin sliding scale ACHS -01/28 am glucose is within goal. Continue current ISS. Monitor. Status: Chronic (11) Anemia: Problem comment: - normocytic - ddx: PMR, Anemia of chronic disease, atypica iron deficiency - obtain iron studies, FOBT was negative - HOLDING Eliquis as of 01/27 - follow symptoms closely, consider another steroid trial - 01/28 Hgb stable, FOBT negative. Restart Apixaban. Monitor. Status: Acute (12) Peripheral neuropathy: Problem comment: - takes 1-2 Hydrocodone-Acetaminophen + Amitriptyline at HS Status: Chronic (13) Sepsis: Problem comment: -01/26, met severe sepsis criteria with WBC 19.25 (previously 28 -> 16), lactate 4.2-->1.8 -lactate and VS normalized after IVF rehydration, no need for pressors -add VBG, CRP, procalcitonin, repeat lactate, triple swab -holding antihypertensives, Lasix given intermittent SBP < 100 -RESOLVED 01/27 Status: Acute Total Time Spent Total Time Spent: Today I spent 70 minutes seeing the patient, discussing with the patient and his , phone call with his , discussing with our radiologist and general surgeon, multiple phone calls with Siddhartha, including with Dr. Luna, reviewing [facility] and [facility] notes/diagnostics/labs, discussing the care plan with our care team that includes social work, PT/OT, pharmacy, RT, intermediate and documenting my impressions and plan in the medical record. Subjective Time Seen by Provider: 10:00 Date Seen: 01/28/25 Interval history: I spoke with and examined Chato this morning and then spoke with him again in the later morning when his came in. I overheard part of their discussion with Anika our social media designer regarding discharge planning. I spoke with them about my concern that he has an empyema, and we discussed goals of care. Chato in his would like to remain aggressive with care, and he stated ?I would like to live a long time yet.? His expressed frustration that there was no blood test we could do to look at whether not he had cancer. She stated that it would be so much easier to make decisions if she knew whether not he had cancer. We also discussed his current level of deconditioning and that he had the PET scan and it showed cancer, he is not currently in good enough condition to undergo treatment for cancer. They demonstrated understanding of this and he stated that he would be willing to work really hard in therapy to get stronger so that he would be good enough to undergo cancer treatment if that were needed. Due to this concern for empyema, they did want me to discuss the case with a specialist at [facility] to determine if he would need further diagnostic testing or definitive treatment of this. I cold Siddhartha and spoke with Dr. Lnua from thoracic surgery who stated that he looked at the scans and notes that the fusion is about 50% better on the recent scan than it was on the 1st scan. He states that it looks like our current treatment is working and we should continue with a course of antibiotics for 4 weeks. He stated that he would not do any intervention at this time, but if Chato's condition changed or if he had breakthrough fevers or leukocytosis while on antibiotics, then pleurodesis could be considered. I went back to speak with her Chato and his , but Chato was sound asleep and his had left for the day. I called his 's phone number and left a message asking her to call me on her answering machine. Exam Narrative: Exam Narrative: General: No acute distress. Awake, alert, oriented to self, place, mostly to situation, but endorses often that he doesn't understand what his and I are discussing. No pallor. No jaundice. Oropharynx: Clear. Mucous membranes moist. Cardiovascular: Regular rate and rhythm. No murmurs, gallops, or rubs. Respiratory: Clear to auscultation bilaterally. No wheezes or crackles. Abdomen: Bowel sounds present. Soft, nondistended, nontender. Extremities: No lower extremity edema. Const: Vital Signs, click to edit/add: Vital Signs - 24 hr 01/27/25 15:00 01/27/25 15:00 01/27/25 17:35 Temperature 96.8 F L Pulse Rate 99 Pulse Rate [Left P ulse Oximeter] 91 91 Respiratory Rate 18 18 Blood Pressure [Le ft Arm] 129/85 Blood Pressure [Ri ght Arm] Pulse Oximetry 95 Oxygen Delivery Me thod Room Air 01/27/25 19:44 01/27/25 23:01 01/27/25 23:10 Temperature 96.8 F L Pulse Rate 94 Pulse Rate [Left P ulse Oximeter] 96 Respiratory Rate 16 16 Blood Pressure [Le ft Arm] 138/90 H Blood Pressure [Ri ght Arm] Pulse Oximetry 94 Oxygen Delivery Me thod Room Air 01/27/25 23:10 01/28/25 01:50 01/28/25 07:00 Temperature 97.1 F L 97.5 F L 96.8 F L Pulse Rate Pulse Rate [Left P ulse Oximeter] 86 94 87 Respiratory Rate 16 16 18 Blood Pressure [Le ft Arm] 120/82 129/91 H Blood Pressure [Ri ght Arm] 125/86 Pulse Oximetry 91 93 94 Oxygen Delivery Va thod Room Air Room Air Room Air 01/28/25 07:00 01/28/25 07:00 01/28/25 11:00 Temperature 96.6 F L Pulse Rate 84 Pulse Rate [Left P ulse Oximeter] 87 118 H Respiratory Rate 18 17 Blood Pressure [Le ft Arm] Blood Pressure [Ri ght Arm] 121/87 Pulse Oximetry 95 Oxygen Delivery Va thod Room Air Labs Labs: Laboratory Results - last 24 hr 01/27/25 01/28/25 13:53 06:17 WBC 11.70 H RBC 2.80 L Hgb 8.6 L 8.5 L Hct 26.3 L MCV 94 MCH 30 MCHC 32 Plt Count 409 Sodium 136 Potassium 3.6 Chloride 105 Carbon Dioxide 26 Anion Gap 5 L BUN 22 Creatinine 1.4 Estimated Creat Clear 59.46 Estimated GFR 54 Glucose 108 Calcium 7.6 L Iron 34 L TIBC 127 L % Saturation 27 Ferritin 352.0 Total Bilirubin 0.4 AST 47 H ALT 39 Alkaline Phosphatase 255 H C-Reactive Protein 2.9 H Total Protein 5.4 L Albumin 2.3 L
--- NOTE | 2025-01-28 14:56 | PC.SOCIAL ---
Addendum entered by JACQUELINE Hewitt 01/28/25 16:05: Discharge planning: Received message back from Vilma in admissions at [facility] and [facility] that there are no beds available in wither of these facilities for short term or terminologist placement on Friday. She will let me know if that changes. warp worker to follow up as needed. Original Note: Discharge planning: Met again with pt and and updated them on none of the four previously requested facilities having availability for rehab placement on Friday. provided additional options for rehab placement. warp worker follow up on these facilities as noted: 1. [facility] - secure emailed referral to Tatyana Valadez in admitting and awaiting decision on admit. 2. [facility] - Secure emailed referral to Roopa Cardenas - awaiting decision on admit. 3. [facility] in [place] - secure emailed referral to Vilma Mccarthy - awaiting decision on admit. 4. [facility] in [place] - secure emailed referral to Vilma Mccarthy - awaiting decision on admit. Requested information on placement in short term rehab if pt participates in rehab over the weekend and is meets criteria for rehab placement or for a private pay [facility] care bed if pt does not meet criteria for rehab placement. Long discussion had with pt, and MD present that if pt does not participate consistently and fully in PT and OT at the hospital, he will not meet criteria for admission to short term rehab stay. If pt is not appropriate for short term rehab stay and still wants placement at discharge, it will be private pay in a usp. Pt is aware of the estimate of cost between $550-$650/day and states this will not be needed because he will be participating in rehab and will go for short term rehab at discharge. also agrees with with what patient is saying and refused to discuss option of chcf private pay placement as she expects him to meet criteria for a short term rehab stay at discharge. warp worker to follow up as needed.
[2025-01-28 15:11] LABS: Lyme ELISA Reflex 0.38 IV (<=0.90)
--- NOTE | 2025-01-28 15:33 | REH.OT ---
OT: OT was requested to see patient in afternoon due to having PT in am. OT attempted to evaluate patient 3x this afternoon with patient 3x this afternoon with patient refusing to get OOB to chair, to sit EOB or progress w/ eval of ADLs. RN present 2x with patient stating no one is listening to me. I don't want to get out of bed and I am not going to. OT explained role of OT and that patient has indicated he wants a TCU stay which he confirmed. 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 He repeatedly refused, despite OT returning on 3rd attempt at time he requested. RN and MD aware. MD requested OT contact patient's spouse to make a plan for weekend therapies. OT called patient's spouse, Gracia, and asked if she felt it would be beneficial for her to be present to encourage Chato to participate in therapies and she said absolutely. She also indicated that she has availability. She reports Chato prefers no early am times and to accommodate this request, would schedule therapies beginning at 10am. She indicated this is a time that works for her to be present. She also requests having time between therapies and this OT explained that may be limited with Chato wanting a later morning time, as therapies may not be scheduled in the afternoon pending census and caseload. OT informed nursing of plan for Friday and that therapies will talk with Chato and his on Friday to make a plan for Friday therapies. OT answered spouse's questions and went over the therapy plan with spouse 3x to clarify understanding. She stated understanding and that it just doesn't seem like therapy is being very flexible with him. OT reiterated therapy is attempting to help Chato meet his goals for a TCU stay to get stronger in order to return home eventually. Patient is scheduled for OT and PT Friday am. This was posted on patient's board in room, patient and RN informed.
--- NOTE | 2025-01-28 19:36 | PC.NURSE ---
End of shift report : Alert and oriented x 3, intermittent confusion to place/time. Pain to bilateral feet and right rib reported, pain well managed with current regimen. Denies any shortness of breath or chest pain. Patient requesting to lay in bed right after completing physical therapy, discussed with patient that compliance and working with therapy and nursing staff will assist with rehab and his goal of getting home. Transfers with assist x 2 with pivot transfer to [facility] and recliner. Appetite fair, ate 50% of breakfast and 25% of dinner, declined lunch tray.
[2025-01-28] MEDS: APIXABAN 5 MG TABLET PO (20:30)
[2025-01-28] MEDS: ATORVASTATIN CALCIUM 40 MG TABLET 80 MG PO (20:30)
[2025-01-28] MEDS: SODIUM CHLORIDE 0.9 % (FLUSH) 10 ML SYRINGE 5 ML IVF (20:30)
[2025-01-28] MEDS: AMITRIPTYLINE HCL 10 MG TABLET PO (20:30)
[2025-01-29] VITALS (10 sets, daily range): BP systolic 118–140; BP diastolic 81–95; PULSE 89–111; RESP 18; TEMP 36.1–36.6; O2SAT 95–97
[2025-01-29] MEDS: PIPERACILLIN/TAZOBACTAM 3.375 GM in 0.9 % SODIUM CHLORIDE Mini-bag 100 ML IVPB ×4 (01:51→19:43)
--- NOTE | 2025-01-29 03:56 | PC.NURSE ---
Pt rested well this night. Pleasant and cooperative. VS unremarkable. Answering question appropriately. Reports generalized pain.
[2025-01-29] MEDS: LEVOTHYROXINE 50 MCG TABLET PO (06:21)
[2025-01-29 06:57] LABS: Hematocrit* 26.3 % (37.0-53.0); Hemoglobin* 8.5 gm/dL (13.5-17.5); Mean Corpuscular HGB Conc 32 gm/dL (32-36); Mean Corpuscular Hemoglobin 30 pg (26-34); Mean Corpuscular Volume 93 fL (80-100); Red Blood Count* 2.83 m/uL (4.30-5.90); White Blood Count* 10.81 K/uL (4.50-11.00)
[2025-01-29 06:59] LABS: Slide Review Reflex No
[2025-01-29 07:05] LABS: Albumin* 2.3 g/dL (3.3-5.0); Chloride* 106 mmol/L (96-114); Potassium* 3.7 mmol/L (3.6-5.1); Sodium* 136 mmol/L (135-149)
[2025-01-29 07:08] LABS: Alanine Aminotransferase* 41 U/L (4-50); Alkaline Phosphatase* 241 U/L (40-150); Anion Gap 6 mEq/L (7-15); Aspartate Amino Transferase* 48 U/L (12-35); Bilirubin Total* 0.4 mg/dL (0.1-1.5); Blood Urea Nitrogen* 14 mg/dL (7-30); Calcium* 7.7 mg/dL (8.4-10.6); Carbon Dioxide* 24 mmol/L (20-32); Creatinine* 1.1 mg/dL (0.5-1.5); Est. Creatinine Clearance* 76.16; Estimated Glomerular Filt Rate 72 ml/min; Glucose* 155 mg/dL (60-115); Total Protein* 5.3 g/dL (6.0-8.3)
[2025-01-29 07:29] LABS: Lab Add On Test New Spec Needed
[2025-01-29 08:11] LABS: Ionized Calcium* 1.12 mmol/L (1.11-1.30)
[2025-01-29] MEDS: APIXABAN 5 MG TABLET PO ×2 (08:49→20:47)
[2025-01-29] MEDS: OMEPRAZOLE 20 MG CAPSULE DR PO ×2 (08:49→20:47)
[2025-01-29] MEDS: HYDROCODONE-ACETAMIN 5-325 MG 1 TAB PO (08:51)
[2025-01-29] MEDS: INSULIN ASPART 100 UNIT/ML SUBCUT ×3 (09:41→21:09)
--- NOTE | 2025-01-29 13:10 | P.IMPN_ITS ---
Assessment and Plan Assessment and plan (1) Left lower lobe pneumonia: Problem comment: -CT shows persistent but improving left lower lobe pneumonia, noted to have WBC of 19 (previously 16) + left shift and elevated lactate -no hypoxia, afebrile -given Zosyn and Vanco 01/26; continue Zosyn, will not continue Vanco 01/27 given historically negative MRSA swabs (repeat swab pending) -will need outpatient follow-up for repeat imaging (had to reschedule PET scan following previous hospitalization) - 01/28 Afebrile, sepsis resolved, WBC improving, almost normalized. Continue IV zosyn. - 01/29 Afebrile, WBC normalized, sinus tachycardia improving, persistent left lower chest discomfort. MRSA swab from 01/26 is negative. BC x 2 negatvie. Continue IV zosyn for empirical treatment without identification of causative organism due to h/o cancer and radiation increasing the risks of aspiration. Obtain CXR on Friday morning to follow. Anticipate 4 weeks of antibiotics (changing to oral regimen upon improvement and discharge). Start probiotic today. Status: Acute (2) Empyema: Problem comment: - 01/[address] Salcido, thoracic surgery at [place], who recommended continuing treating with antibiotics for 4 weeks. 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 ddx includes metabolic abnormality, deconditioning, progression of malignancy, persistent vs new PNA - ESR elevated (consider PMR given new anemia), although does not have significant arthralgias. Notably treated with a week of prednisone in early December by PCP without improvement in symptoms - TSH mildly elevated, will add low-dose levothyroxine 01/27 - 01/28 patient states he's been participating in therapies today. Stressed the importance of consistently participating in therapies. Discussed goals of care, which he and his state include aggressive treatment for cancer. Discussed that he will have to participate in therapies and get stronger to be a candidate for treatment, if cancer is found. Patient and were comfortable with this plan and now enthusiastic about therapies. - 01/29 is present and encouraging patient to participate in therapies, and he is complying with that. Iron deficiency anemia may also be contributing to weakness. Start oral iron and consider iron infusions as outpatient. Status: Acute (4) Stroke: Problem comment: - history of L cerebral hemisphere (2022), posterior cerebral hemispheres and L basal ganglia + L frontal and parietal lobs (2023) - on high dose statin + Apixaban, residual R sided weakness - HOLDING Apixaban as of 01/27 - 01/28 Hgb stable at 8.5, FOBT negative. Restart Apixaban. Monitor. Status: Chronic (5) Squamous cell carcinoma of lung, stage I: Problem comment: - diagnosed 07/17, [id number] Stage 1A2 - follows with [facility] in [place] - was due for PET scan 01/13 -rescheduled following previous hospital stay - CT 01/27/25 shows cavitation over area of previous radiation Status: Acute (6) Pancreatic lesion: Problem comment: -CT chest shows 1 centimeter low-density likely cystic pancreatic lesion -reviewed with General surgery, recommend MR of abdomen, will continue to follow LFTs to assess if these needs to be completed as an inpatient - MRCP as outpatient Status: Acute (7) Hepatic steatosis: Problem comment: -as noted on CT imaging, transaminitis -CT chest completed at outside facility November 2024 does not show upper abdomen abnormalities Status: Acute (8) CARLY (acute kidney injury): Problem comment: -creatinine 1.9 on admission 01/26, baseline 1.2-1.5 -back to 1.5 (baseline CKD 3b) on 01/27 - 01/28 remains at baseline, Cr 1.4 - 01/29 Cr 1.1, baseline. Restart home furosemide and lisinopril. Monitor. Status: Acute (9) Transaminitis: Problem comment: -persists. AST/ALT improved from previous, alk phos elevated at 344 -CT chest shows Severe diffuse hepatic steatosis, pancreatic lesion, cholelithiasis -no abdominal pain, benign abdominal exam, continue to follow Status: Acute (10) Non-insulin dependent diabetes mellitus: Problem comment: -A1C 9.7 01/03/25 -holding home medications given poor oral intake -glucose and insulin sliding scale ACHS -12/5 am glucose is within goal. Continue current ISS. Monitor. Metformin remains on hold. If Cr remains stable after restarting lisinopril and furosemide, will also restart metformin. Status: Chronic (11) Anemia: Problem comment: - normocytic - ddx: PMR, Anemia of chronic disease, atypica iron deficiency - obtain iron studies, FOBT was negative - HOLDING Eliquis as of 01/27 - follow symptoms closely, consider another steroid trial - 01/28 Hgb stable, FOBT negative. Restart Apixaban. Monitor. - 01/29 Apixaban restarted yesterday. Hgb stable. Iron deficiency anemia. May need further investigation as an outpatient. I am holding off on EGD here since it is not urgent and pneumonia and empyema may increase risk of adverse events during conscious sedation. Start oral iron. May need to consider iron infusions as outpatient. Status: Acute (12) Peripheral neuropathy: Problem comment: - takes 1-2 Hydrocodone-Acetaminophen + Amitriptyline at HS Status: Chronic (13) Sepsis: Problem comment: -01/26, met severe sepsis criteria with WBC 19.25 (previously 28 -> 16), lactate 4.2-->1.8 -lactate and VS normalized after IVF rehydration, no need for pressors -add VBG, CRP, procalcitonin, repeat lactate, triple swab -holding antihypertensives, Lasix given intermittent SBP < 100 -RESOLVED 01/27 Status: Acute Subjective Time Seen by Provider: 08:45 Date Seen: 01/29/25 Interval history: Chato complains of pain in his lower left lateral chest. It has been there intermittently. His , Gracia, came in mid-morning and I went back in at that time. She notes that he seems a bit confused today and asks her frequently what happened to bring him here again. Gracia tells me that she spoke with his radiation oncologist yesterday and received reassurance that it was okay to wait to get the PET scan until he was able to move better and was stronger. Exam Narrative: Exam Narrative: General: No acute distress. Awake, alert, oriented x3. He asked me why he is in the hospital again this time. No pallor. No jaundice. Oropharynx: Clear. Mucous membranes moist. Cardiovascular: Regular rate and rhythm. No murmurs, gallops, or rubs. Respiratory: Clear to auscultation bilaterally. Diminished at the left base. No wheezes or crackles. Abdomen: Bowel sounds present. Soft, nondistended, nontender. Extremities: Trace lower extremity edema. Const: Vital Signs, click to edit/add: Vital Signs - 24 hr 01/28/25 14:53 01/28/25 14:53 01/28/25 14:53 Temperature 97.1 F L Pulse Rate 90 Pulse Rate [Left P ulse Oximeter] 102 H 102 H Respiratory Rate 18 18 Blood Pressure [Le ft Arm] Blood Pressure [Ri ght Arm] 129/85 Pulse Oximetry 95 Oxygen Delivery Me thod Room Air 01/28/25 19:32 01/28/25 19:58 01/28/25 22:05 Temperature 98.1 F 97.4 F L Pulse Rate 90 Pulse Rate [Left P ulse Oximeter] 95 95 Respiratory Rate 18 18 Blood Pressure [Le ft Arm] 136/91 H 144/94 H Blood Pressure [Ri ght Arm] Pulse Oximetry 95 95 Oxygen Delivery Me thod Room Air Room Air 01/28/25 22:07 01/29/25 01:58 01/29/25 06:52 Temperature 97.3 F L Pulse Rate 97 Pulse Rate [Left P ulse Oximeter] 95 98 Respiratory Rate 18 18 Blood Pressure [Le ft Arm] 140/95 H Blood Pressure [Ri ght Arm] Pulse Oximetry 95 Oxygen Delivery Me thod Room Air 01/29/25 07:51 01/29/25 08:00 01/29/25 11:32 Temperature 97.0 F L 97.8 F Pulse Rate Pulse Rate [Left P ulse Oximeter] 101 H 101 H 101 H Respiratory Rate 18 18 18 Blood Pressure [Le ft Arm] 138/95 H 118/81 Blood Pressure [Ri ght Arm] Pulse Oximetry 96 97 Oxygen Delivery Me thod Room Air Room Air Labs Labs: Laboratory Results - last 24 hr 01/26/25 01/29/25 01/29/25 15:21 06:41 07:28 WBC 10.81 RBC 2.83 L Hgb 8.5 L Hct 26.3 L MCV 93 MCH 30 MCHC 32 Plt Count 386 Sodium 136 Potassium 3.7 Chloride 106 Carbon Dioxide 24 Anion Gap 6 L BUN 14 Creatinine 1.1 Estimated Creat Clear 76.16 Estimated GFR 72 Glucose 155 H Calcium 7.7 L Ionized Calcium Diane Total Bilirubin 0.4 AST 48 H ALT 41 Alkaline Phosphatase 241 H Total Protein 5.3 L Albumin 2.3 L Lyme Disease Antibody 0.38 Lab Acknowledgement New Spec Needed A 01/29/25 07:57 WBC RBC Hgb Hct MCV MCH MCHC Plt Count Sodium Potassium Chloride Carbon Dioxide Anion Gap BUN Creatinine Estimated Creat Clear Estimated GFR Glucose Calcium Ionized Calcium Diane 1.12 Total Bilirubin AST ALT Alkaline Phosphatase Total Protein Albumin Lyme Disease Antibody Lab Acknowledgement
[2025-01-29] MEDS: LACTOBACILLUS ACIDOPHILUS 1 TABLET 1 TAB PO (17:44)
--- NOTE | 2025-01-29 18:12 | PC.NURSE ---
End of shift. Alert and oriented x 3,PT and OT worked with him he does do things when his is here. but he refused when she is not here. he said no to getting up for breakfast and refused to eat lunch if he had to get up in the chair. . Pain to bilateral feet and right rib reported, pain well managed with norco. Transfers with assist x1 assist walker and GB. with pivot transfer to BS and recliner. pt is eating, drinking and voiding. stool sample needed. IV has been patent. Bs done and insulin given. OT did a mocca today
[2025-01-29] MEDS: SODIUM CHLORIDE 0.9 % (FLUSH) 10 ML SYRINGE 5 ML IVF (20:46)
[2025-01-29] MEDS: AMITRIPTYLINE HCL 10 MG TABLET PO (20:47)
[2025-01-29] MEDS: ATORVASTATIN CALCIUM 40 MG TABLET 80 MG PO (20:47)
[2025-01-30] VITALS (15 sets, daily range): BP systolic 128–148; BP diastolic 83–98; PULSE 80–100; RESP 14–18; TEMP 36–36.8; O2SAT 93–98
[2025-01-30] MEDS: PIPERACILLIN/TAZOBACTAM 3.375 GM in 0.9 % SODIUM CHLORIDE Mini-bag 100 ML IVPB ×4 (02:00→20:32)
[2025-01-30] MEDS: HYDROCODONE-ACETAMIN 5-325 MG 1 TAB PO ×3 (02:17→20:37)
[2025-01-30 06:00] LABS: Hematocrit* 23.5 % (37.0-53.0); Mean Corpuscular HGB Conc 33 gm/dL (32-36); Mean Corpuscular Hemoglobin 30 pg (26-34); Mean Corpuscular Volume 93 fL (80-100); Red Blood Count* 2.54 m/uL (4.30-5.90); White Blood Count* 10.38 K/uL (4.50-11.00)
[2025-01-30 06:01] LABS: Hemoglobin* 7.7 gm/dL (13.5-17.5)
[2025-01-30 06:02] LABS: Slide Review Reflex No
--- NOTE | 2025-01-30 06:13 | W.PM.CROSSCO ---
Assessment and Plan Assessment and plan (1) Anemia: Problem comment: - normocytic - ddx: PMR, Anemia of chronic disease, atypica iron deficiency - obtain iron studies, FOBT was negative - HOLDING Eliquis as of 01/27 - follow symptoms closely, consider another steroid trial - 01/28 Hgb stable, FOBT negative. Restart Apixaban. Monitor. - 01/29 Apixaban restarted yesterday. Hgb stable. Iron deficiency anemia. May need further investigation as an outpatient. I am holding off on EGD here since it is not urgent and pneumonia and empyema may increase risk of adverse events during conscious sedation. Start oral iron. May need to consider iron infusions as outpatient. Status: Acute Plan hemoglobin is 7.7 today from 8.5 yesterday patient is hemodynamcially stable --will recheck hemoglobin at 1400 and reassess if less than 7 patient will need transfusion --in the meantime, eliquis was stopped
[2025-01-30 06:15] LABS: Albumin* 2.1 g/dL (3.3-5.0); Chloride* 106 mmol/L (96-114); Potassium* 3.6 mmol/L (3.6-5.1); Sodium* 135 mmol/L (135-149)
[2025-01-30 06:18] LABS: Alanine Aminotransferase* 37 U/L (4-50); Alkaline Phosphatase* 239 U/L (40-150); Anion Gap 7 mEq/L (7-15); Aspartate Amino Transferase* 44 U/L (12-35); Bilirubin Total* 0.3 mg/dL (0.1-1.5); Blood Urea Nitrogen* 12 mg/dL (7-30); Calcium* 7.5 mg/dL (8.4-10.6); Carbon Dioxide* 22 mmol/L (20-32); Creatinine* 1.0 mg/dL (0.5-1.5); Est. Creatinine Clearance* 85.39; Estimated Glomerular Filt Rate 80 ml/min; Glucose* 178 mg/dL (60-115); Total Protein* 5.0 g/dL (6.0-8.3)
[2025-01-30] MEDS: LEVOTHYROXINE 50 MCG TABLET PO (06:21)
--- NOTE | 2025-01-30 06:30 | PC.NURSE ---
End of shift [id number]: Pt is alert and oriented x3, pleasant, and cooperative with cares. Afebrile, VSS on RA. Pt reports pain that is managed with PRN medication. Pt is voiding, using urinal at bedside. Awaiting stool sample. Call light within reach.
[2025-01-30] MEDS: LACTOBACILLUS ACIDOPHILUS 1 TABLET 1 TAB PO ×3 (08:23→16:54)
[2025-01-30] MEDS: FERROUS SULFATE 325 MG TABLET PO (08:23)
[2025-01-30] MEDS: OMEPRAZOLE 20 MG CAPSULE DR PO ×2 (08:24→20:35)
[2025-01-30] MEDS: SENNOSIDES/DOCUSATE TABLET 1 TAB PO (08:24)
[2025-01-30] MEDS: FUROSEMIDE 20 MG TABLET PO (08:25)
[2025-01-30] MEDS: INSULIN ASPART 100 UNIT/ML SUBCUT ×3 (09:27→20:38)
--- NOTE | 2025-01-30 10:29 | CRLHL7_ITS ---
For Patients: As a result of the Century Cures Act, medical imaging exams and procedure reports are released immediately into your electronic medical record. You may view this report before your referring provider. If you have questions, please contact your health care provider. INDICATION: Follow-up pleural effusion, pneumonia COMPARISON: 01/12/2025, 01/26/2025 TECHNIQUE: 1 view chest radiograph. FINDINGS: Devices: None Lung volumes are moderate. Persistent opacification in the left midlung. No pulmonary edema. Small left pleural effusion, much better appreciated on chest CT. No pneumothorax. No pneumomediastinum. Heart size is unchanged. Partially visualized right shoulder arthroplasty. IMPRESSION: Similar appearance of the left mid lung and effusion compared to prior radiographs. The effusion is better appreciated on CT. Dictated by Marifer Ball MD @ 01/30/2025 10:50:57 AM (Electronically Signed)
[2025-01-30 11:27] LABS: Fecal Occult Blood* Positive (Negative)
--- NOTE | 2025-01-30 12:12 | P.IMPN_ITS ---
Assessment and Plan Assessment and plan (1) Left lower lobe pneumonia: Problem comment: -CT shows persistent but improving left lower lobe pneumonia, noted to have WBC of 19 (previously 16) + left shift and elevated lactate -no hypoxia, afebrile -given Zosyn and Vanco 01/26; continue Zosyn, will not continue Vanco 01/27 given historically negative MRSA swabs (repeat swab pending) -will need outpatient follow-up for repeat imaging (had to reschedule PET scan following previous hospitalization) - 01/28 Afebrile, sepsis resolved, WBC improving, almost normalized. Continue IV zosyn. - 01/29 Afebrile, WBC normalized, sinus tachycardia improving, persistent left lower chest discomfort. MRSA swab from 01/26 is negative. BC x 2 negatvie. Continue IV zosyn for empirical treatment without identification of causative organism due to h/o cancer and radiation increasing the risks of aspiration. Obtain CXR on Friday morning to follow. Anticipate 4 weeks of antibiotics (changing to oral regimen upon improvement and discharge). Start probiotic today. - 01/30 Due to worsening anemia, I obtained a CXR today. Effusion is stable. Remains afeb, WBC normal. Sinus tachy resolved. BCx2 remain neg. Continue zosyn for now (planning EGD tomorrow). Status: Acute (2) Empyema: Problem comment: - 01/[address] Salcido, thoracic surgery at [place], who recommended continuing treating with antibiotics for 4 weeks. He stated that he was health services information specialist this weekend if Chato's condition or vitals worsened, specifically if he had breakthrough worsening leukocytosis or fever while on antibiotics - 01/29 as above Status: Acute (3) Weakness: Problem comment: - generalized. ddx includes metabolic abnormality, deconditioning, progression of malignancy, persistent vs new PNA - ESR elevated (consider PMR given new anemia), although does not have significant arthralgias. Notably treated with a week of prednisone in early December by PCP without improvement in symptoms - TSH mildly elevated, will add low-dose levothyroxine 01/27 - 01/28 patient states he's been participating in therapies today. Stressed the importance of consistently participating in therapies. Discussed goals of care, which he and his state include aggressive treatment for cancer. Discussed that he will have to participate in therapies and get stronger to be a candidate for treatment, if cancer is found. Patient and were comfortable with this plan and now enthusiastic about therapies. - 01/29 is present and encouraging patient to participate in therapies, and he is complying with that. Iron deficiency anemia may also be contributing to weakness. Start oral iron and consider iron infusions as outpatient. Continue therapies, rehab when medically stable Status: Acute (4) Stroke: Problem comment: - history of L cerebral hemisphere (2022), posterior cerebral hemispheres and L basal ganglia + L frontal and parietal lobs (2023) - on high dose statin + Apixaban, residual R sided weakness - HOLDING Apixaban as of 01/27 - 01/28 Hgb stable at 8.5, FOBT negative. Restart Apixaban. Monitor. - 01/30 Hgb 7.5, holding apixaban, FOBT positive, obtaining EGD. Status: Chronic (5) Squamous cell carcinoma of lung, stage I: Problem comment: - diagnosed 07/17, [id number] Stage 1A2 - follows with [facility] in [place] - was due for PET scan 01/13 -rescheduled following previous hospital stay - CT 01/27/25 shows cavitation over area of previous radiation Status: Acute (6) Pancreatic lesion: Problem comment: -CT chest shows 1 centimeter low-density likely cystic pancreatic lesion -reviewed with General surgery, recommend MR of abdomen, will continue to follow LFTs to assess if these needs to be completed as an inpatient - MRCP as outpatient Status: Acute (7) Hepatic steatosis: Problem comment: -as noted on CT imaging, transaminitis -CT chest completed at outside facility November 2024 does not show upper abdomen abnormalities Status: Acute (8) CARLY (acute kidney injury): Problem comment: -creatinine 1.9 on admission 01/26, baseline 1.2-1.5 -back to 1.5 (baseline CKD 3b) on 01/27 - 01/28 remains at baseline, Cr 1.4 - 01/29 Cr 1.1, baseline. Restart home furosemide and lisinopril. Monitor. - 01/30 Resolved, Cr 1 Status: Resolved (9) Transaminitis: Problem comment: -persists. AST/ALT improved from previous, alk phos elevated at 344 -CT chest shows Severe diffuse hepatic steatosis, pancreatic lesion, cholelithiasis -no abdominal pain, benign abdominal exam, continue to follow Status: Acute (10) Non-insulin dependent diabetes mellitus: Problem comment: -A1C 9.7 01/03/25 -holding home medications given poor oral intake -glucose and insulin sliding scale ACHS -01/28 am glucose is within goal. Continue current ISS. Monitor. Metformin remains on hold. If Cr remains stable after restarting lisinopril and furosemide, will also restart metformin. - 01/30 BG more elevated than inpatient goal. WIll hold off on starting metformin since he will be NPO overnight for EGD. Start lantus. Continue ISS. Status: Chronic (11) Anemia: Problem comment: - normocytic - ddx: PMR, Anemia of chronic disease, atypica iron deficiency - obtain iron studies, FOBT was negative - HOLDING Eliquis as of 01/27 - follow symptoms closely, consider another steroid trial - 01/28 Hgb stable, FOBT negative. Restart Apixaban. Monitor. - 01/29 Apixaban restarted yesterday. Hgb stable. Iron deficiency anemia. May need further investigation as an outpatient. I am holding off on EGD here since it is not urgent and pneumonia and empyema may increase risk of adverse events during conscious sedation. Start oral iron. May need to consider iron infusions as outpatient. -01/30 Further Hgb drop, melanotic stool this am that is + for blood. NPO tonight. EGD in am (if they can do it, apixaban was held this morning), keep apixaban on hold, hold iron. If EGD negative, consider outpatient colonoscopy before restarting apixaban. Status: Acute (12) GI bleed: Problem comment: - 01/30 repeat FOBT is positive today and stool was dark, melanotic appearing, as above Status: Acute (13) Peripheral neuropathy: Problem comment: - takes 1-2 Hydrocodone-Acetaminophen + Amitriptyline at HS Status: Chronic (14) Sepsis: Problem comment: -01/26, met severe sepsis criteria with WBC 19.25 (previously 28 -> 16), lactate 4.2-->1.8 -lactate and VS normalized after IVF rehydration, no need for pressors -add VBG, CRP, procalcitonin, repeat lactate, triple swab -holding antihypertensives, Lasix given intermittent SBP < 100 -RESOLVED 12/4 Status: Acute Subjective Time Seen by Provider: 08:22 Date Seen: 01/30/25 Interval history: Chato c/o pain in lower left chest. Denies any new pain. Denies SOB. His , Gracia, is here. We discussed anemia and doing an EGD. Chato initially said he didn't want any scopes, but then agreed after discussing it further with Gracia. We discussed outpatient colonoscopy if nothing is found on EGD. I discussed the risks and benefits of blood products with the patient and his . The risks include transmission of blood borne illnesses including HIV and hepatitis. Additionally the risks include blood reaction or allergic reaction. We also discussed the benefits of getting blood work which would include improved perfusion to organ such as heart, lungs, kidneys, and brain and potentially helping with some of the weakness. Exam Narrative: Exam Narrative: General: No acute distress. Awake, alert, oriented x3. Appears to be a baseline mental status today. No pallor. No jaundice. Oropharynx: Clear. Mucous membranes moist. Cardiovascular: Regular rate and rhythm. No murmurs, gallops, or rubs. Respiratory: Clear to auscultation bilaterally. Diminished at the left base. No wheezes or crackles. Abdomen: Bowel sounds present. Soft, nondistended, nontender. Extremities: Trace lower extremity edema. Const: Vital Signs, click to edit/add: Vital Signs - 24 hr 01/29/25 14:43 01/29/25 15:00 01/29/25 15:00 Temperature 97.0 F L Pulse Rate 111 H Pulse Rate [Left P ulse Oximeter] 101 H 101 H Respiratory Rate 18 18 Blood Pressure [Le ft Arm] 138/95 H Pulse Oximetry 95 Oxygen Delivery Me thod Room Air 01/29/25 19:37 01/29/25 22:50 01/29/25 23:18 Temperature 97.8 F 97.7 F Pulse Rate 89 Pulse Rate [Left P ulse Oximeter] 95 99 Respiratory Rate 18 18 Blood Pressure [Le ft Arm] 131/81 134/85 Pulse Oximetry 97 96 Oxygen Delivery Me thod Room Air Room Air 01/30/25 02:01 01/30/25 07:00 01/30/25 07:00 Temperature 98.3 F 97.1 F L Pulse Rate 87 Pulse Rate [Left P ulse Oximeter] 100 96 Respiratory Rate 18 18 Blood Pressure [Le ft Arm] 148/94 H 129/98 H Pulse Oximetry 96 93 Oxygen Delivery Me thod Room Air Room Air 01/30/25 07:00 Temperature Pulse Rate Pulse Rate [Left P ulse Oximeter] 96 Respiratory Rate 18 Blood Pressure [Le ft Arm] Pulse Oximetry Oxygen Delivery Me thod Labs Labs: Laboratory Results - last 24 hr 01/30/25 01/30/25 05:43 11:09 WBC 10.38 RBC 2.54 L Hgb 7.7 L* Hct 23.5 L MCV 93 MCH 30 MCHC 33 Plt Count 326 Sodium 135 Potassium 3.6 Chloride 106 Carbon Dioxide 22 Anion Gap 7 BUN 12 Creatinine 1.0 Estimated Creat Clear 85.39 Estimated GFR 80 Glucose 178 H Calcium 7.5 L Total Bilirubin 0.3 AST 44 H ALT 37 Alkaline Phosphatase 239 H Total Protein 5.0 L Albumin 2.1 L Stool Occult Blood Positive Blood Type O Negative Antibody Screen NEGATIVE Crossmatch (AHG) See Detail Ordering Physician: Renae Mendes M.D. Date of Service: 01/30/25 Procedure(s): XR chest 1V portable Accession Number(s): [id number] cc: Renae Mendes M.D.; Dorinda Washington D.O.~ For Patients: As a result of the Cures Act, medical imaging exams and procedure reports are released immediately into your electronic medical record. You may view this report before your referring provider. If you have questions, please contact your health care provider. INDICATION: Follow-up pleural effusion, pneumonia COMPARISON: 01/12/2025, 01/26/2025 TECHNIQUE: 1 view chest radiograph. FINDINGS: Devices: None Lung volumes are moderate. Persistent opacification in the left midlung. No pulmonary edema. Small left pleural effusion, much better appreciated on chest CT. No pneumothorax. No pneumomediastinum. Heart size is unchanged. Partially visualized right shoulder arthroplasty. IMPRESSION: Similar appearance of the left mid lung and effusion compared to prior radiographs. The effusion is better appreciated on CT. Dictated by Marifer Ball MD @ 01/30/2025 10:50:57 AM (Electronically Signed)
--- NOTE | 2025-01-30 15:48 | PC.NURSE ---
End of shift report [id number]: Pleasant and cooperative with cares. Denies any chest pain or shortness of breath. Reports neuropathic pain to bilateral feet, norco used for pain PRN and effective. 1 unit PRBC transfused, tolerated well. Moderate amount of black, jelly consistency stool, sample collected and fecal occult positive. Transfer with min A x 1 and SBA with walker and gait belt and tolerating walking short distances. Patient tolerated ambulating the length of the room. Appetite poor, ate 50% of breakfast and declined lunch.
[2025-01-30 17:09] LABS: Hemoglobin* 9.6 gm/dL (13.5-17.5)
[2025-01-30] MEDS: AMITRIPTYLINE HCL 10 MG TABLET PO (20:34)
[2025-01-30] MEDS: ATORVASTATIN CALCIUM 40 MG TABLET 80 MG PO (20:34)
[2025-01-30] MEDS: SODIUM CHLORIDE 0.9 % (FLUSH) 10 ML SYRINGE 5 ML IVF (20:38)
--- NOTE | 2025-01-30 21:52 | PC.NURSE ---
Patient ambulates with assist of one, walker, and gait belt. Patients PIV in Right A/C patent and infusing NS. Patient received blood sugars and insulin as ordered. Antibiotics given as ordered.
[2025-01-31] VITALS (12 sets, daily range): BP systolic 131–146; BP diastolic 82–102; PULSE 78–124; RESP 16–22; TEMP 35.7–37; O2SAT 95–97
[2025-01-31] MEDS: PIPERACILLIN/TAZOBACTAM 3.375 GM in 0.9 % SODIUM CHLORIDE Mini-bag 100 ML IVPB ×4 (02:09→23:38)
--- NOTE | 2025-01-31 06:21 | PC.NURSE ---
Addendum entered by Ana Walsh RN 01/31/25 06:26: awaiting endoscopy this am. NPO since midnight. Addendum entered by Ana Walsh RN 01/31/25 06:25: bed alarm in place. Original Note: End of shift [id number]: Pt is alert and oriented x3, pleasant, and cooperative with cares. Pt is voiding, using urinal at bedside. VSS on RA. Fluids infusing @ 125 ml/hr. Denies SOB/dizziness/CP. Pt reports pain, refusing PRN medication. Pt reported relief with repo and inactivity. Call light within reach.
[2025-01-31 06:29] LABS: Hematocrit* 25.7 % (37.0-53.0); Hemoglobin* 8.6 gm/dL (13.5-17.5); Mean Corpuscular HGB Conc 34 gm/dL (32-36); Mean Corpuscular Hemoglobin 30 pg (26-34); Mean Corpuscular Volume 89 fL (80-100); Red Blood Count* 2.89 m/uL (4.30-5.90); White Blood Count* 9.79 K/uL (4.50-11.00)
[2025-01-31 06:37] LABS: Chloride* 103 mmol/L (96-114); Slide Review Reflex No
[2025-01-31 06:38] LABS: Albumin* 2.1 g/dL (3.3-5.0); Potassium* 3.5 mmol/L (3.6-5.1); Sodium* 132 mmol/L (135-149)
[2025-01-31 06:40] LABS: Anion Gap 5 mEq/L (7-15); Blood Urea Nitrogen* 11 mg/dL (7-30); Carbon Dioxide* 24 mmol/L (20-32); Creatinine* 1.0 mg/dL (0.5-1.5); Est. Creatinine Clearance* 85.39; Estimated Glomerular Filt Rate 80 ml/min
[2025-01-31 06:41] LABS: Alanine Aminotransferase* 36 U/L (4-50); Alkaline Phosphatase* 229 U/L (40-150); Aspartate Amino Transferase* 39 U/L (12-35); Bilirubin Total* 0.5 mg/dL (0.1-1.5); Calcium* 7.5 mg/dL (8.4-10.6); Glucose* 169 mg/dL (60-115); Total Protein* 5.1 g/dL (6.0-8.3)
[2025-01-31] MEDS: LEVOTHYROXINE 50 MCG TABLET PO (08:14)
[2025-01-31] MEDS: POTASSIUM CHLORIDE 10 MEQ/100 ML PIGGYBACK 100 MEQ IVPB (08:14)
[2025-01-31] MEDS: HYDROCODONE-ACETAMIN 5-325 MG 1 TAB PO ×2 (08:14→19:43)
--- NOTE | 2025-01-31 08:27 | PM.IMPN1 ---
Assessment and Plan Assessment and plan (1) Hypokalemia: Problem comment: Replace orally. Recheck in am. Status: Acute (2) Left lower lobe pneumonia: Problem comment: -CT shows persistent but improving left lower lobe pneumonia, noted to have WBC of 19 (previously 16) + left shift and elevated lactate -no hypoxia, afebrile -given Zosyn and Vanco 01/26; continue Zosyn, will not continue Vanco 01/27 given historically negative MRSA swabs (repeat swab pending) -will need outpatient follow-up for repeat imaging (had to reschedule PET scan following previous hospitalization) - 01/28 Afebrile, sepsis resolved, WBC improving, almost normalized. Continue IV zosyn. - 01/29 Afebrile, WBC normalized, sinus tachycardia improving, persistent left lower chest discomfort. MRSA swab from 01/26 is negative. BC x 2 negatvie. Continue IV zosyn for empirical treatment without identification of causative organism due to h/o cancer and radiation increasing the risks of aspiration. Obtain CXR on Friday morning to follow. Anticipate 4 weeks of antibiotics (changing to oral regimen upon improvement and discharge). Start probiotic today. - 01/30 Due to worsening anemia, I obtained a CXR today. Effusion is stable. Remains afeb, WBC normal. Sinus tachy resolved. BCx2 remain neg. Continue zosyn for now (planning EGD tomorrow). - 01/31 afeb, WBC remains wnl, CXR yesterday shows no increased effusion. Continue zosyn. Transition to augmentin for a total of 4 weeks on discharge. Status: Acute (3) Empyema: Problem comment: - 01/[address] Salcido, thoracic surgery at [place], who recommended continuing treating with antibiotics for 4 weeks. He stated that he was parts sales counterperson this weekend if Chato's condition or vitals worsened, specifically if he had breakthrough worsening leukocytosis or fever while on antibiotics - 01/29 as above Status: Acute (4) Weakness: Problem comment: - generalized. ddx includes metabolic abnormality, deconditioning, progression of malignancy, persistent vs new PNA - ESR elevated (consider PMR given new anemia), although does not have significant arthralgias. Notably treated with a week of prednisone in early December by PCP without improvement in symptoms - TSH mildly elevated, will add low-dose levothyroxine 01/27 - 01/28 patient states he's been participating in therapies today. Stressed the importance of consistently participating in therapies. Discussed goals of care, which he and his state include aggressive treatment for cancer. Discussed that he will have to participate in therapies and get stronger to be a candidate for treatment, if cancer is found. Patient and were comfortable with this plan and now enthusiastic about therapies. - 01/29 is present and encouraging patient to participate in therapies, and he is complying with that. Iron deficiency anemia may also be contributing to weakness. Start oral iron and consider iron infusions as outpatient. Continue therapies, rehab when bed available if hgb stable tomorrow am Status: Acute (5) Stroke: Problem comment: - history of L cerebral hemisphere (2022), posterior cerebral hemispheres and L basal ganglia + L frontal and parietal lobs (2023) - on high dose statin + Apixaban, residual R sided weakness - HOLDING Apixaban as of 01/27 - 01/28 Hgb stable at 8.5, FOBT negative. Restart Apixaban. Monitor. - 01/30 Hgb 7.5, holding apixaban, FOBT positive, obtaining EGD. - 01/31 Holding apixaban for a week, as below. Status: Chronic (6) Squamous cell carcinoma of lung, stage I: Problem comment: - diagnosed 07/17, [id number] Stage 1A2 - follows with [facility] in [place] - was due for PET scan 01/13 -rescheduled following previous hospital stay - CT 01/27/25 shows cavitation over area of previous radiation Status: Acute (7) Pancreatic lesion: Problem comment: -CT chest shows 1 centimeter low-density likely cystic pancreatic lesion -reviewed with General surgery, recommend MR of abdomen, will continue to follow LFTs to assess if these needs to be completed as an inpatient - MRCP as outpatient Status: Acute (8) Hepatic steatosis: Problem comment: -as noted on CT imaging, transaminitis -CT chest completed at outside facility November 2024 does not show upper abdomen abnormalities Status: Acute (9) CARLY (acute kidney injury): Problem comment: -creatinine 1.9 on admission 01/26, baseline 1.2-1.5 -back to 1.5 (baseline CKD 3b) on 01/27 - 01/28 remains at baseline, Cr 1.4 - 01/29 Cr 1.1, baseline. Restart home furosemide and lisinopril. Monitor. - 01/30 Resolved, Cr 1 Status: Resolved (10) Transaminitis: Problem comment: -persists. AST/ALT improved from previous, alk phos elevated at 344 -CT chest shows Severe diffuse hepatic steatosis, pancreatic lesion, cholelithiasis -no abdominal pain, benign abdominal exam, continue to follow Status: Acute (11) Anemia: Problem comment: - normocytic - ddx: PMR, Anemia of chronic disease, atypica iron deficiency - obtain iron studies, FOBT was negative - HOLDING Eliquis as of 01/27 - follow symptoms closely, consider another steroid trial - 01/28 Hgb stable, FOBT negative. Restart Apixaban. Monitor. - 01/29 Apixaban restarted yesterday. Hgb stable. Iron deficiency anemia. May need further investigation as an outpatient. I am holding off on EGD here since it is not urgent and pneumonia and empyema may increase risk of adverse events during conscious sedation. Start oral iron. May need to consider iron infusions as outpatient. -01/30 Further Hgb drop, melanotic stool this am that is + for blood. NPO tonight. EGD in am (if they can do it, apixaban was held this morning), keep apixaban on hold, hold iron. If EGD negative, consider outpatient colonoscopy before restarting apixaban. - 01/31 possible bleeding duodenal ulcers, see below. Continue to hold apixaban. Hgb better today after yesterday's transfusion. Recheck in am. If stable, may go to rehab when bed available. Status: Acute (12) GI bleed: Problem comment: - 01/30 repeat FOBT is positive today and stool was dark, melanotic appearing, as above - 01/31 EGD no obvious bleeding, does have 2 duodenal ulcers. Continue PPI, hold apixaban x 1 week (discussed risk/benefit of this with patient and his ), outpatient EGD and colonoscopy in 3 months Status: Acute (13) Non-insulin dependent diabetes mellitus: Problem comment: -A1C 9.7 01/03/25 -holding home medications given poor oral intake -glucose and insulin sliding scale ACHS -01/28 am glucose is within goal. Continue current ISS. Monitor. Metformin remains on hold. If Cr remains stable after restarting lisinopril and furosemide, will also restart metformin. - 01/30 BG more elevated than inpatient goal. WIll hold off on starting metformin since he will be NPO overnight for EGD. Start lantus. Continue ISS. - 01/31 BG still more elevated than goal, restart home metformin. Status: Chronic (14) Peripheral neuropathy: Problem comment: - takes 1-2 Hydrocodone-Acetaminophen + Amitriptyline at HS Status: Chronic (15) Sepsis: Problem comment: -01/26, met severe sepsis criteria with WBC 19.25 (previously 28 -> 16), lactate 4.2-->1.8 -lactate and VS normalized after IVF rehydration, no need for pressors -add VBG, CRP, procalcitonin, repeat lactate, triple swab -holding antihypertensives, Lasix given intermittent SBP < 100 -RESOLVED 01/27 Status: Acute Total Time Spent Total Time Spent: Today I spent 50minutes seeing the patient, discussing with Dr. Bull over the phone, discussion with the patient and his , reviewing [facility] and [facility] notes/diagnostics/labs, discussing the care plan with our care team that includes social work, PT/OT, pharmacy, RT, correction and documenting my impressions and plan in the medical record. Subjective Time Seen by Provider: 08:05 Date Seen: 01/31/25 Interval history: Chato has no complaints. He tells me the pain in his low left chest is less today than yesterday. Dr. Bull called me about the results of his EGD. His came in today after his EGD, and I went back and discussed the results with Chato and his . We also discussed a low reflux diet and sitting up after meals, PPI, holding apixaban for a week, and increased risk of stroke while off apixaban. Exam Narrative: Exam Narrative: General: No acute distress. Awake, alert, oriented. No pallor. No jaundice. Oropharynx: Clear. Mucous membranes moist. Cardiovascular: Regular rate and rhythm. No murmurs, gallops, or rubs. Respiratory: Clear to auscultation bilaterally. Diminished at the left base. No wheezes or crackles. Abdomen: Bowel sounds present. Soft, nondistended, nontender. Extremities: Trace bilateral lower extremity edema. Const: Vital Signs, click to edit/add: Vital Signs - 24 hr 01/30/25 11:00 01/30/25 12:42 01/30/25 12:58 Temperature 96.8 F L 97.8 F 96.8 F L Pulse Rate 90 83 Pulse Rate [Left P ulse Oximeter] 80 Respiratory Rate 16 18 16 Blood Pressure 128/92 H 131/86 Blood Pressure [Le ft Arm] 128/92 H Pulse Oximetry 98 98 97 Oxygen Delivery Me thod Room Air Room Air Room Air 01/30/25 13:27 01/30/25 13:28 01/30/25 13:58 Temperature 96.8 F L 96.8 F L 96.8 F L Pulse Rate 81 81 81 Pulse Rate [Left P ulse Oximeter] Respiratory Rate 16 16 14 Blood Pressure 136/89 136/89 135/84 Blood Pressure [Le ft Arm] Pulse Oximetry 97 97 97 Oxygen Delivery Me thod Room Air Room Air Room Air 01/30/25 14:28 01/30/25 14:58 01/30/25 15:00 Temperature 96.8 F L 96.9 F L 97.0 F L Pulse Rate 80 92 Pulse Rate [Left P ulse Oximeter] 82 Respiratory Rate 14 18 18 Blood Pressure 137/85 138/83 Blood Pressure [Le ft Arm] 141/89 H Pulse Oximetry 96 97 Oxygen Delivery Me thod Room Air Room Air Room Air 01/30/25 15:00 01/30/25 15:00 01/30/25 15:12 Temperature 97.0 F L Pulse Rate 97 81 Pulse Rate [Left P ulse Oximeter] 82 Respiratory Rate 16 18 Blood Pressure 141/89 H Blood Pressure [Le ft Arm] Pulse Oximetry 97 Oxygen Delivery Me thod Room Air 01/30/25 16:11 01/30/25 18:58 01/30/25 23:21 Temperature 97.1 F L 97.1 F L Pulse Rate 87 82 Pulse Rate [Left P ulse Oximeter] 86 Respiratory Rate 16 14 Blood Pressure 143/94 H Blood Pressure [Le ft Arm] 135/84 Pulse Oximetry 97 96 Oxygen Delivery Me thod Room Air Room Air 01/31/25 00:05 01/31/25 02:14 01/31/25 07:28 Temperature 98.4 F 98.3 F 97.3 F L Pulse Rate Pulse Rate [Left P ulse Oximeter] 89 87 91 Respiratory Rate 16 16 18 Blood Pressure Blood Pressure [Le ft Arm] 131/88 146/102 H 131/94 H Pulse Oximetry 95 95 95 Oxygen Delivery Me thod Room Air Room Air Room Air Labs Labs: Laboratory Results - last 24 hr 01/30/25 01/30/25 01/30/25 05:43 11:09 16:50 WBC RBC Hgb 9.6 L Hct MCV MCH MCHC Plt Count Sodium Potassium Chloride Carbon Dioxide Anion Gap BUN Creatinine Estimated Creat Clear Estimated GFR Glucose Calcium Total Bilirubin AST ALT Alkaline Phosphatase Total Protein Albumin Stool Occult Blood Positive Blood Type O Negative Antibody Screen NEGATIVE Crossmatch ([facility]) See Detail 01/31/25 06:12 WBC 9.79 RBC 2.89 L Hgb 8.6 L Hct 25.7 L MCV 89 MCH 30 MCHC 34 Plt Count 338 Sodium 132 L Potassium 3.5 L Chloride 103 Carbon Dioxide 24 Anion Gap 5 L BUN 11 Creatinine 1.0 Estimated Creat Clear 85.39 Estimated GFR 80 Glucose 169 H Calcium 7.5 L Total Bilirubin 0.5 AST 39 H ALT 36 Alkaline Phosphatase 229 H Total Protein 5.1 L Albumin 2.1 L Stool Occult Blood Blood Type Antibody Screen Crossmatch ([facility])
--- NOTE | 2025-01-31 11:18 | P.ANES_ITS ---
Anesthesia Charges Start Date/Time Anesthesia Start Date: 01/31/25 Anesthesia Start Time: 10:55 Stop Date/Time Anesthesia Stop Date: 01/31/25 Anesthesia Stop Time: 11:10 Summary Extremes of Age - Over 70 or under 1: SENIOR CAREGIVER Coding CPT Codes CPT Codes: ANES UPR GI NDSC PX NOS - 49205 ([id number]) P4 - PT W/SEV SYS DIS THREAT LIFE, QK - ATTRACTION WORKER 2-4 CNCRNT ANES PROC Additional Codes: Summary - Extremes of Age - Over 70 or under 1: SENIOR CAREGIVER ([id number])
--- NOTE | 2025-01-31 11:18 | W.ANESCHARGE ---
Anesthesia Charges Start Date/Time Anesthesia Start Date: 01/31/25 Anesthesia Start Time: 10:55 Stop Date/Time Anesthesia Stop Date: 01/31/25 Anesthesia Stop Time: 11:10 Summary Extremes of Age - Over 70 or under 1: CLINICAL SUPPORT TECH Coding CPT Codes CPT Codes: ANES UPR GI NDSC PX NOS - 93921 ([id number]) P4 - PT W/SEV SYS DIS THREAT LIFE, QK - HEEL SANDER RUBBER 2-4 CNCRNT ANES PROC Additional Codes: Summary - Extremes of Age - Over 70 or under 1: CLINICAL SUPPORT TECH ([id number])
--- NOTE | 2025-01-31 11:26 | P.ANES_ITS ---
Anesthesia Charges Start Date/Time Anesthesia Start Date: 01/31/25 Anesthesia Start Time: 10:55 Stop Date/Time Anesthesia Stop Date: 01/31/25 Anesthesia Stop Time: 11:10 Summary Extremes of Age - Over 70 or under 1: MDA Coding CPT Codes CPT Codes: ANES UPR GI NDSC PX NOS - 05979 ([id number]) QK - INDUSTRIAL GAS FITTER HELPER 2-4 CNCRNT ANES PROC, P4 - PT W/SEV SYS DIS THREAT LIFE, QX - SCULPTURE INSTRUCTOR SVC W/ MD MED DIRECTION Additional Codes: Summary - Extremes of Age - Over 70 or under 1: MDA ([id number])
[2025-01-31] MEDS: OMEPRAZOLE 20 MG CAPSULE DR PO ×2 (12:00→21:14)
[2025-01-31] MEDS: FUROSEMIDE 20 MG TABLET PO (12:01)
[2025-01-31] MEDS: LACTOBACILLUS ACIDOPHILUS 1 TABLET 1 TAB PO ×3 (12:02→17:39)
[2025-01-31] MEDS: SODIUM CHLORIDE 0.9 % (FLUSH) 10 ML SYRINGE 5 ML IVF (12:02)
--- NOTE | 2025-01-31 14:43 | PC.SOCIAL ---
Discharge planning: Met multiple times with pt and today regarding discharge planning. Requested list of additional facilities is requesting social media marketing specialist contact for placement as there have been no facilities located who are able to accept pt. Discharge is anticipated for 02/01/25. provided additional names of facilities she requested be contacted. is not interested in looking at any of the 45 intermediate facilities owned by [employer], who owns [employer]. Included here is a full list of all the facilities contacted at this time and the results of the inquiry regarding bed availability for short term rehab bed. Facilities who have declined to admit this patient due to bed availability or needs of pt: 1.? [facility] 2.? [facility] 3.? [facility] 4.? [facility] 5.? [facility] in [place] 6.? [facility] 7.? [facility] 8.? [facility] in [place] Facilities where messages have been left with no call back: 1.? [facility] in ?[place] 2.? [facility] in [facility] 3.? [facility] in [place] 4.? [facility] who are reviewin.? [facility] ? [facility] 2.? [facility]
[2025-01-31] MEDS: INSULIN ASPART 100 UNIT/ML SUBCUT ×2 (17:18→21:14)
[2025-01-31] MEDS: METFORMIN 500 MG TABLET PO (17:39)
--- NOTE | 2025-01-31 18:35 | PC.NURSE ---
shift note: Pt is AOx4. Afebrile. Pt is weak; able to use walker w/ GB , 1-2 assist. Pt down to endo for scope; wheeled by RN. Results provided to hospitalist & update provided to pt and bedside, RN present. Pt uses urinal bedside w/ SBA. Pt tolerating regular diet 7 liquids. Pt & provided education on medications, procedures, & cares. R arm & bilateral feet non-pitting swelling. updated.
[2025-01-31] MEDS: ATORVASTATIN CALCIUM 40 MG TABLET 80 MG PO (21:13)
[2025-01-31] MEDS: AMITRIPTYLINE HCL 10 MG TABLET PO (21:13)
[2025-02-01] VITALS (9 sets, daily range): BP systolic 118–157; BP diastolic 86–111; PULSE 88–100; RESP 16–20; TEMP 36.1–37.1; O2SAT 94–96
[2025-02-01] MEDS: LEVOTHYROXINE 50 MCG TABLET PO (06:01)
[2025-02-01] MEDS: PIPERACILLIN/TAZOBACTAM 3.375 GM in 0.9 % SODIUM CHLORIDE Mini-bag 100 ML IVPB ×2 (06:01→12:59)
[2025-02-01 06:31] LABS: Hematocrit* 25.6 % (37.0-53.0); Hemoglobin* 8.7 gm/dL (13.5-17.5); Mean Corpuscular HGB Conc 34 gm/dL (32-36); Mean Corpuscular Hemoglobin 30 pg (26-34); Mean Corpuscular Volume 88 fL (80-100); Red Blood Count* 2.90 m/uL (4.30-5.90); White Blood Count* 9.13 K/uL (4.50-11.00)
[2025-02-01 06:36] LABS: Slide Review Reflex No
--- NOTE | 2025-02-01 06:41 | PC.NURSE ---
End of shift report : VSS. Afebrile.?On RA. Denies SOB and chest pain.?Pt complains of BLE neuropathic pain, prn?norco?offered and given.?Pt?utilizes?the urinal at bedside overnight, grant writer encouraged the pt to ambulate to BR?with grant writer, pt refused.?Pt stood at bedside 2 times, 1A, GB, W. Report Writer encouraged pt to elevate R arm and BLE due to edema. Bed alarm on, call light within reach.??
[2025-02-01 06:43] LABS: Albumin* 2.2 g/dL (3.3-5.0); Chloride* 105 mmol/L (96-114); Sodium* 132 mmol/L (135-149)
[2025-02-01 06:44] LABS: Potassium* 3.2 mmol/L (3.6-5.1)
[2025-02-01 06:46] LABS: Alanine Aminotransferase* 35 U/L (4-50); Aspartate Amino Transferase* 39 U/L (12-35); Blood Urea Nitrogen* 9 mg/dL (7-30); Creatinine* 1.0 mg/dL (0.5-1.5); Est. Creatinine Clearance* 85.39; Estimated Glomerular Filt Rate 80 ml/min
[2025-02-01 06:47] LABS: Alkaline Phosphatase* 242 U/L (40-150); Anion Gap 1 mEq/L (7-15); Bilirubin Total* 0.4 mg/dL (0.1-1.5); Calcium* 7.9 mg/dL (8.4-10.6); Carbon Dioxide* 26 mmol/L (20-32); Glucose* 162 mg/dL (60-115)
[2025-02-01 07:03] LABS: Total Protein* 5.3 g/dL (6.0-8.3)
[2025-02-01 07:58] LABS: H pylori Ag Stool* Negative (Negative)
[2025-02-01] MEDS: LACTOBACILLUS ACIDOPHILUS 1 TABLET 1 TAB PO ×3 (08:20→18:04)
[2025-02-01] MEDS: POTASSIUM BICARB 25 MEQ EFFERVESCENT TAB PO ×2 (08:23→10:39)
[2025-02-01] MEDS: FUROSEMIDE 20 MG TABLET PO (09:00)
[2025-02-01] MEDS: OMEPRAZOLE 20 MG CAPSULE DR PO ×2 (09:00→21:05)
[2025-02-01] MEDS: SODIUM CHLORIDE 0.9 % (FLUSH) 10 ML SYRINGE 5 ML IVF ×2 (09:00→21:05)
[2025-02-01] MEDS: POTASSIUM CHLORIDE 10 MEQ CAPSULE ER 20 MEQ PO (09:00)
[2025-02-01] MEDS: METFORMIN 500 MG TABLET PO ×2 (09:01→18:03)
[2025-02-01] MEDS: HYDROCODONE-ACETAMIN 5-325 MG 1 TAB PO (10:38)
[2025-02-01] MEDS: MAGNESIUM IV 2 GM/50 ML PIGGYBACK IVPB (11:42)
--- NOTE | 2025-02-01 11:47 | PC.SOCIAL ---
Addendum entered by JACQUELINE Hewitt 02/01/25 13:52: Discharge planning: While waiting for to provide additional list of rehabs that she would accept for pt, called the following facilities with the listed results: 1. [facility] - in [place] - [phone] - Spoke with Sunitha who requested information be faxed. Faxed requested information to [phone]. Awaiting call back with decision on admit. 2. [facility] - no bed available. 3. [facility] - no bed available. 4. [facility] [place] [phone] left message requesting call back. 5. [facility] [phone] left message requesting call back. Received call back from [facility] ([facility]) stating they do not currently have a bed available but can evaluate pt for oprning at the end of the week. Requested evaluation for end of week in case no placement is located before then. political worker to follow up as needed. Original Note: Discharge planning: As of this note, none of the facilities contacted yesterday at the request of pt's have returned call requesting bed availability. There were two facilities evaluating pt yesterday, [facility] and [facility]. Emailed and called both of these facilities multiple times this morning requesting update on decision on admit. No response form these facilities at this time. Spoke with , who states she does not have any more facilities to provide to social research assistant as she was hoping he would be accepted into a facility already provided. She is on her way to an appointment and will return this afternoon with a list of additional facilities to call. political worker has requested a list of at least 10 facilities. Informed that social research assistant will be reaching out to facilities not yet contacted today as there needs to be more facilities called and she is not providing a list at this time. states she would like to know where social work contacts and states she is only going to approve of facilities she thinks are good enough for pt. is aware pt is ready for discharge today. political worker to follow up as needed.
[2025-02-01] MEDS: INSULIN ASPART 100 UNIT/ML SUBCUT ×3 (14:02→21:10)
--- NOTE | 2025-02-01 14:59 | PM.IMPN1 ---
Assessment and Plan Assessment and plan (1) Hypomagnesemia: Problem comment: - suspect this is at least impart due to PPI use, cannot stop PPI right now because of recent finding of ulcers, suspect GI bleed. Replace magnesium both orally and IV, recheck in the morning Status: Acute (2) Hypokalemia: Problem comment: Replace magnesium as above and Replace potassium orally. Recheck in am. Status: Acute (3) Left lower lobe pneumonia: Problem comment: -CT shows persistent but improving left lower lobe pneumonia, noted to have WBC of 19 (previously 16) + left shift and elevated lactate -no hypoxia, afebrile -given Zosyn and Vanco 01/26; continue Zosyn, will not continue Vanco 01/27 given historically negative MRSA swabs (repeat swab pending) -will need outpatient follow-up for repeat imaging (had to reschedule PET scan following previous hospitalization) - 01/28 Afebrile, sepsis resolved, WBC improving, almost normalized. Continue IV zosyn. - 01/29 Afebrile, WBC normalized, sinus tachycardia improving, persistent left lower chest discomfort. MRSA swab from 01/26 is negative. BC x 2 negatvie. Continue IV zosyn for empirical treatment without identification of causative organism due to h/o cancer and radiation increasing the risks of aspiration. Obtain CXR on Friday morning to follow. Anticipate 4 weeks of antibiotics (changing to oral regimen upon improvement and discharge). Start probiotic today. - 01/30 Due to worsening anemia, I obtained a CXR today. Effusion is stable. Remains afeb, WBC normal. Sinus tachy resolved. BCx2 remain neg. Continue zosyn for now (planning EGD tomorrow). - 01/31 afeb, WBC remains wnl, CXR yesterday shows no increased effusion. Continue zosyn. Transition to augmentin for a total of 4 weeks on discharge. - 02/01 much improved, sepsis resolved, chest x-ray done 01/30 stable transition to oral Augmentin today, anticipate 4 weeks total antibiotics and reimaging near the end of antibiotic treatment Status: Acute (4) Empyema: Problem comment: - 01/[address] Salcido, thoracic surgery at [place], who recommended continuing treating with antibiotics for 4 weeks. He stated that he was road commissioner this weekend if Chato's condition or vitals worsened, specifically if he had breakthrough worsening leukocytosis or fever while on antibiotics - 01/29 as above Status: Acute (5) Weakness: Problem comment: - generalized. ddx includes metabolic abnormality, deconditioning, progression of malignancy, persistent vs new PNA - ESR elevated (consider PMR given new anemia), although does not have significant arthralgias. Notably treated with a week of prednisone in early December by PCP without improvement in symptoms - TSH mildly elevated, will add low-dose levothyroxine 01/27 - 01/28 patient states he's been participating in therapies today. Stressed the importance of consistently participating in therapies. Discussed goals of care, which he and his state include aggressive treatment for cancer. Discussed that he will have to participate in therapies and get stronger to be a candidate for treatment, if cancer is found. Patient and were comfortable with this plan and now enthusiastic about therapies. - 01/29 is present and encouraging patient to participate in therapies, and he is complying with that. Iron deficiency anemia may also be contributing to weakness. Start oral iron and consider iron infusions as outpatient. Continue therapies, rehab when bed available Status: Acute (6) Stroke: Problem comment: - history of L cerebral hemisphere (2022), posterior cerebral hemispheres and L basal ganglia + L frontal and parietal lobs (2023) - on high dose statin + Apixaban, residual R sided weakness - HOLDING Apixaban as of 01/27 - 01/28 Hgb stable at 8.5, FOBT negative. Restart Apixaban. Monitor. - 01/30 Hgb 7.5, holding apixaban, FOBT positive, obtaining EGD. - 01/31 Holding apixaban for a week, as below. Status: Chronic (7) Squamous cell carcinoma of lung, stage I: Problem comment: - diagnosed 07/17, [id number] Stage 1A2 - follows with [facility] in [place] - was due for PET scan 01/13 -rescheduled following previous hospital stay - CT 01/27/25 shows cavitation over area of previous radiation Status: Acute (8) Pancreatic lesion: Problem comment: -CT chest shows 1 centimeter low-density likely cystic pancreatic lesion -reviewed with General surgery, recommend MR of abdomen, will continue to follow LFTs to assess if these needs to be completed as an inpatient - MRCP as outpatient Status: Acute (9) Hepatic steatosis: Problem comment: -as noted on CT imaging, transaminitis -CT chest completed at outside facility November 2024 does not show upper abdomen abnormalities - outpatient MRCP Status: Acute (10) Transaminitis: Problem comment: -persists. AST/ALT improved from previous, alk phos elevated at 344 -CT chest shows Severe diffuse hepatic steatosis, pancreatic lesion, cholelithiasis -no abdominal pain, benign abdominal exam, continue to follow Status: Acute (11) Anemia: Problem comment: - normocytic - ddx: PMR, Anemia of chronic disease, atypica iron deficiency - obtain iron studies, FOBT was negative - HOLDING Eliquis as of 01/27 - follow symptoms closely, consider another steroid trial - 01/28 Hgb stable, FOBT negative. Restart Apixaban. Monitor. - 01/29 Apixaban restarted yesterday. Hgb stable. Iron deficiency anemia. May need further investigation as an outpatient. I am holding off on EGD here since it is not urgent and pneumonia and empyema may increase risk of adverse events during conscious sedation. Start oral iron. May need to consider iron infusions as outpatient. -01/30 Further Hgb drop, melanotic stool this am that is + for blood. NPO tonight. EGD in am (if they can do it, apixaban was held this morning), keep apixaban on hold, hold iron. If EGD negative, consider outpatient colonoscopy before restarting apixaban. - 01/31 possible bleeding duodenal ulcers, see below. Continue to hold apixaban. Hgb better today after yesterday's transfusion. Recheck in am. If stable, may go to rehab when bed available. - 02/01 stable now off apixaban. Continue oral iron, consider outpatient iron infusions Status: Acute (12) GI bleed: Problem comment: - 01/30 repeat FOBT is positive today and stool was dark, melanotic appearing, as above - 01/31 EGD no obvious bleeding, does have 2 duodenal ulcers. Continue PPI, hold apixaban x 1 week (discussed risk/benefit of this with patient and his ), outpatient EGD and colonoscopy in 3 months - 02/01 Hgb stable now off apixaban, continue PPI, outpatient EGD/colonoscopy, hold apixaban for a week. Status: Acute (13) Non-insulin dependent diabetes mellitus: Problem comment: -A1C 9.7 01/03/25 -holding home medications given poor oral intake -glucose and insulin sliding scale ACHS -01/28 am glucose is within goal. Continue current ISS. Monitor. Metformin remains on hold. If Cr remains stable after restarting lisinopril and furosemide, will also restart metformin. - 01/30 BG more elevated than inpatient goal. WIll hold off on starting metformin since he will be NPO overnight for EGD. Start lantus. Continue ISS. - 01/31 BG still more elevated than goal, restart home metformin. Status: Chronic (14) Peripheral neuropathy: Problem comment: - takes 1-2 Hydrocodone-Acetaminophen + Amitriptyline at HS Status: Chronic (15) Sepsis: Problem comment: -01/26, met severe sepsis criteria with WBC 19.25 (previously 28 -> 16), lactate 4.2-->1.8 -lactate and VS normalized after IVF rehydration, no need for pressors -add VBG, CRP, procalcitonin, repeat lactate, triple swab -holding antihypertensives, Lasix given intermittent SBP < 100 -RESOLVED 01/27 Status: Acute (16) CARLY (acute kidney injury): Problem comment: -creatinine 1.9 on admission 01/26, baseline 1.2-1.5 -back to 1.5 (baseline CKD 3b) on 01/27 - 01/28 remains at baseline, Cr 1.4 - 01/29 Cr 1.1, baseline. Restart home furosemide and lisinopril. Monitor. - 01/30 Resolved, Cr 1 Status: Resolved Subjective Date Seen: 02/01/25 Interval history: Chato notes the pain in his low left chest is a little bit better today, but still there. Chato's , Gracia, was also in the room this morning when I saw him. I noted that his hemoglobin was stable from yesterday and that we were going to continue replacing potassium and that I checked his magnesium and that was low so we would replace that as well. Their questions were answered. We also discussed outpatient follow-up for empyema. Exam Narrative: Exam Narrative: General: No acute distress. Awake, alert, oriented. No pallor. No jaundice. Oropharynx: Clear. Mucous membranes moist. Cardiovascular: Regular rate and rhythm. No murmurs, gallops, or rubs. Respiratory: Clear to auscultation bilaterally. Diminished at the left base. No wheezes or crackles. Abdomen: Bowel sounds present. Soft, nondistended, nontender. Extremities: Trace bilateral lower extremity edema. Const: Vital Signs, click to edit/add: Vital Signs - 24 hr 01/31/25 15:00 01/31/25 15:17 01/31/25 15:34 Temperature 96.9 F L Pulse Rate 89 Pulse Rate [Left P ulse Oximeter] 96 96 Respiratory Rate 18 18 Blood Pressure [Le ft Arm] 135/82 Pulse Oximetry 96 Oxygen Delivery Me thod Room Air 01/31/25 19:00 01/31/25 20:05 01/31/25 23:00 Temperature 98.1 F Pulse Rate 84 Pulse Rate [Left P ulse Oximeter] 84 Respiratory Rate 22 22 Blood Pressure [Le ft Arm] 137/90 H Pulse Oximetry 96 Oxygen Delivery Sc thod Room Air 01/31/25 23:00 02/01/25 03:00 02/01/25 07:00 Temperature 98.6 F 98.1 F Pulse Rate 88 Pulse Rate [Left P ulse Oximeter] 84 100 Respiratory Rate 20 20 Blood Pressure [Le ft Arm] 133/87 157/111 H Pulse Oximetry 95 94 [facility] 02/01/25 08:00 02/01/25 08:00 02/01/25 11:00 Temperature 97.0 F L 97.0 F L Pulse Rate Pulse Rate [Left P ulse Oximeter] 100 100 91 Respiratory Rate 18 18 16 Blood Pressure [Le ft Arm] 155/93 H 118/86 Pulse Oximetry 95 94 Oxygen Delivery Sc thod Room Air Room Air Labs Labs: Laboratory Results - last 24 hr 01/31/25 02/01/25 02/01/25 Unknown 05:51 07:42 WBC 9.13 RBC 2.90 L Hgb 8.7 L Hct 25.6 L MCV 88 MCH 30 MCHC 34 Plt Count 339 Sodium 132 L Potassium 3.2 L Chloride 105 Carbon Dioxide 26 Anion Gap 1 L BUN 9 Creatinine 1.0 Estimated Creat Clear 85.39 Estimated GFR 80 Glucose 162 H Calcium 7.9 L Magnesium 1.4 L Total Bilirubin 0.4 AST 39 H ALT 35 Alkaline Phosphatase 242 H Total Protein 5.3 L Albumin 2.2 L Stool H. pylori Ag Negative Lab Acknowledgement Test Added
--- NOTE | 2025-02-01 15:51 | PC.SOCIAL ---
Discharge planning: provided the following list for placement, which was followed up on by social work with the listed result: [facility] [phone] - Faxed requestd information to Cynthia - no bed today but she will review, awaiting decision. 2. [facility] - [phone] - left message for admitting requesting call back. 3. [facility] in [place] - [phone] left message for admitting Gogo. Received message requesting call and called back and had to leave another message. 4. [facility] in [place] [phone] - no beds available for next two weeks. 5. [facility] - faxed referral to [phone] 6. [facility] [phone] - left message requesting call back. 7. [facility] in [place] [phone] left message requesting call back. 8. [facility] - culinary worker already contacted this facility on 01/31/25. No beds available. culinary worker to follow up as needed.
--- NOTE | 2025-02-01 16:27 | PC.SOCIAL ---
Discharge planning: This is an updated list of all the SNF facilities contacted for this patient regarding placement and the results of those contacts. There are currently six facilities reviewing pt's information for admit. prop worker to follow up as needed. Facilities who have declined to admit this patient due to bed availability or needs of pt: 1.? [facility] in [place] 2.? [facility] in [place] 3.? [facility] 4.? [facility], [place] 5.? [facility] in [place] 6.? [facility] [place] 7.? [facility] [place] 8.? [facility] in [place] 9. [facility] ? 10. [facility] 11. [facility] in [place] ? Facilities where messages have been left with no call back: 1.?? [facility] in ?[place] 2.???[facility] in [facility] 3.??[facility] in [place] 4.? [facility] 5. ?[facility] in [place] ?? 6. [facility] ?in [place] 7. [facility] ?? 8. [facility] ??? 9. [facility] in [place] ??? Facilities reviewing referral for short term rehab bed 1.? [facility] [place] [facility] 2.? [facility] 3. [facility] 4. [facility] in [place] 5. [facility] 6. [facility] - in [place]
--- NOTE | 2025-02-01 19:37 | PC.NURSE ---
End of Shift: Patient pleasant, A&O. VSS, afebrile. SpO2 maintained above 90% on RA. Patient reports lower extremity pain this shift, managed with PRN medication, see MAR. Tolerating regular diet. 1-2A with walker and GB.?
[2025-02-01] MEDS: MAGNESIUM OXIDE 400 MG TABLET PO (21:05)
[2025-02-01] MEDS: ATORVASTATIN CALCIUM 40 MG TABLET 80 MG PO (21:05)
[2025-02-01] MEDS: AMITRIPTYLINE HCL 10 MG TABLET PO (21:06)
[2025-02-02 06:00] VITALS: RESP 20
[2025-02-02 06:27] LABS: Hematocrit* 26.8 % (37.0-53.0); Hemoglobin* 9.1 gm/dL (13.5-17.5); Mean Corpuscular HGB Conc 34 gm/dL (32-36); Mean Corpuscular Hemoglobin 30 pg (26-34); Mean Corpuscular Volume 88 fL (80-100); Red Blood Count* 3.03 m/uL (4.30-5.90); White Blood Count* 9.70 K/uL (4.50-11.00)
[2025-02-02 06:36] LABS: Albumin* 2.3 g/dL (3.3-5.0); Chloride* 104 mmol/L (96-114); Slide Review Reflex No
[2025-02-02 06:37] LABS: Potassium* 3.6 mmol/L (3.6-5.1); Sodium* 132 mmol/L (135-149)
--- NOTE | 2025-02-02 06:38 | PC.NURSE ---
End of shift from [id number] and [id number]: VSS. Afebrile.?On RA. Edema wear is on R arm. Ambulates 1-2A, GB, W.?Pt had a BM overnight. Utilized?the urinal overnight. Bed alarm on, call light within reach.
[2025-02-02 06:39] LABS: Alanine Aminotransferase* 36 U/L (4-50); Anion Gap 0 mEq/L (7-15); Aspartate Amino Transferase* 40 U/L (12-35); Blood Urea Nitrogen* 8 mg/dL (7-30); Carbon Dioxide* 28 mmol/L (20-32); Creatinine* 1.0 mg/dL (0.5-1.5); Est. Creatinine Clearance* 84.03; Estimated Glomerular Filt Rate 80 ml/min
[2025-02-02 06:40] LABS: Alkaline Phosphatase* 239 U/L (40-150); Bilirubin Total* 0.3 mg/dL (0.1-1.5); Calcium* 8.1 mg/dL (8.4-10.6); Glucose* 168 mg/dL (60-115); Total Protein* 5.4 g/dL (6.0-8.3)
[2025-02-02] MEDS: LEVOTHYROXINE 50 MCG TABLET PO (06:44)
[2025-02-02 07:00] VITALS: BP 144/105; PULSE 88; RESP 18; TEMP 36.3; O2SAT 96
[2025-02-02] MEDS: MAGNESIUM OXIDE 400 MG TABLET PO (08:25)
[2025-02-02] MEDS: OMEPRAZOLE 20 MG CAPSULE DR PO (08:25)
[2025-02-02] MEDS: POTASSIUM CHLORIDE 10 MEQ CAPSULE ER 20 MEQ PO (08:26)
[2025-02-02] MEDS: LACTOBACILLUS ACIDOPHILUS 1 TABLET 1 TAB PO (08:26)
[2025-02-02] MEDS: SODIUM CHLORIDE 0.9 % (FLUSH) 10 ML SYRINGE 5 ML IVF (08:26)
[2025-02-02] MEDS: FUROSEMIDE 20 MG TABLET PO (08:26)
[2025-02-02] MEDS: METFORMIN 500 MG TABLET PO (08:26)
[2025-02-02] MEDS: HYDROCODONE-ACETAMIN 5-325 MG 1 TAB PO (08:26)
--- NOTE | 2025-02-02 09:43 | PC.SOCIAL ---
Addendum entered by JACQUELINE Hewitt 02/02/25 10:58: Discharge planning: Met with pt and in room who are aware and agree with discharge plan to rehab at [facility]. Provided pt and with copy of Important Message From Medicare and explained process to appeal if they disagree with discharge today. and pt are aware and agree with EMS transport which is expected to meet insurance criteria for coverage. Discharge orders and completed PAS have been secure emailed to [facility]. Facility has been informed of EMS transport scheduled for 11:00 garbage pick up man. Original Note: Discharge planning: REceived call from [facility] public information coordinator, May [phone], stating they can accept pt today for admit to either a shared room or a private room for an extra fee of $35/day. Called who is pleased with this plan and requested foster care social worker discuss the private or shared room with pt. Met with pt who is aware and agrees with plan for discharge today to this facility and is requesting private room adn agrees to pay the extra fee of $35/day. chore worker shared this request with [facility]. chore worker to follow up as needed.
--- NOTE | 2025-02-02 09:47 | PM.DS1 ---
DS: Providers Provider Time Seen by Provider: 07:31 Date Seen: 02/02/25 Date of admission: 01/26/25 18:20 Primary care physician: Dorinda Washington DO Admitting Clinician: Debi Orozco PA-C Consults: 01/26/25 19:54 Consult to Occupational Therapy [CONS] Routine Comment: Reason(s) for OT Consult:: Evaluate and Treat Any Restrictions?:: No Restrictions Consult to Physical Therapy [CONS] Routine Comment: Reason(s) for PT Consult:: Evaluate and Treat Any Restrictions?:: No Restrictions Consult to [employer] [CONS] Routine Comment: Reason for Consult:: Social Service Consult 01/26/25 20:38 Consult to Physician [CONS] Routine Comment: Consulting Provider: General Surgery, [facility] Has provider been notified: No Attending Physician on discharge: Renae Mendes MD Date of Discharge: 02/02/25 DS: Diagnosis Discharge Diagnosis (1) Sepsis: Status: Acute Problem details: -01/26, met severe sepsis criteria with WBC 19.25 (previously 28 -> 16), lactate 4.2-->1.8 -lactate and VS normalized after IVF rehydration, no need for pressors -add VBG, CRP, procalcitonin, repeat lactate, triple swab -holding antihypertensives, Lasix given intermittent SBP < 100 -RESOLVED 01/27 (2) Left lower lobe pneumonia: Status: Acute Problem details: -CT shows persistent but improving left lower lobe pneumonia, noted to have WBC of 19 (previously 16) + left shift and elevated lactate -no hypoxia, afebrile -given Zosyn and Vanco 01/26; continue Zosyn, will not continue Vanco 01/27 given historically negative MRSA swabs (repeat swab pending) -will need outpatient follow-up for repeat imaging (had to reschedule PET scan following previous hospitalization) - 01/28 Afebrile, sepsis resolved, WBC improving, almost normalized. Continue IV zosyn. - 01/29 Afebrile, WBC normalized, sinus tachycardia improving, persistent left lower chest discomfort. MRSA swab from 01/26 is negative. BC x 2 negatvie. Continue IV zosyn for empirical treatment without identification of causative organism due to h/o cancer and radiation increasing the risks of aspiration. Obtain CXR on Friday morning to follow. Anticipate 4 weeks of antibiotics (changing to oral regimen upon improvement and discharge). Start probiotic today. - 01/30 Due to worsening anemia, I obtained a CXR today. Effusion is stable. Remains afeb, WBC normal. Sinus tachy resolved. BCx2 remain neg. Continue zosyn for now (planning EGD tomorrow). - 01/31 afeb, WBC remains wnl, CXR yesterday shows no increased effusion. Continue zosyn. Transition to augmentin for a total of 4 weeks on discharge. - 02/01 much improved, sepsis resolved, chest x-ray done 01/30 stable transition to oral Augmentin today, anticipate 4 weeks total antibiotics and reimaging near the end of antibiotic treatment - 02/02 doing well on oral Augmentin. D/c to rehab today. (3) Empyema: Status: Acute Problem details: - 01/[address] Salcido, thoracic surgery at [facility], who recommended continuing treating with antibiotics for 4 weeks. 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 Restart home furosemide and lisinopril. Monitor. - 01/30 Resolved, Cr 1, baseline 1.2-1.3 (5) CKD stage 3b, GFR 30-44 ml/min: Status: Chronic Problem details: - baseline Cr is 1.2-1.3 (6) Hypomagnesemia: Status: Acute Problem details: - suspect this is at least impart due to PPI use, cannot stop PPI right now because of recent finding of ulcers, suspect GI bleed. - Was replaced and Mg is now wnl. Recheck in a week. (7) Hypokalemia: Status: Acute Problem details: Replaced, wnl today. Continue K supplement daily and recheck in 5-7 days. (8) Stroke: Status: Chronic Problem details: - history of L cerebral hemisphere (2022), posterior cerebral hemispheres and L basal ganglia + L frontal and parietal lobs (2023) - on high dose statin + Apixaban, residual R sided weakness - HOLDING Apixaban as of 01/27 - 01/28 Hgb stable at 8.5, FOBT negative. Restart Apixaban. Monitor. - 01/30 Hgb 7.5, holding apixaban, FOBT positive, obtaining EGD. - 01/31 Holding apixaban for a week, as below. (9) Squamous cell carcinoma of lung, stage I: Status: Acute Problem details: - diagnosed 07/17, [id number] Stage 1A2 - follows with [facility] in [place] - was due for PET scan 01/13 -rescheduled following previous hospital stay, patient and agreeable to reschedule PET scan until he completes rehab stay - CT 01/27/25 shows cavitation over area of previous radiation (10) Pancreatic lesion: Status: Acute Problem details: -CT chest shows 1 centimeter low-density likely cystic pancreatic lesion -reviewed with General surgery, recommend MR of abdomen, will continue to follow LFTs to assess if these needs to be completed as an inpatient - MRCP as outpatient (11) Hepatic steatosis: Status: Acute Problem details: -as noted on CT imaging, transaminitis -CT chest completed at outside facility November 2024 does not show upper abdomen abnormalities - outpatient MRCP (12) Transaminitis: Status: Acute Problem details: -persists. AST/ALT improved from previous, alk phos elevated at 344 -CT chest shows Severe diffuse hepatic steatosis, pancreatic lesion, cholelithiasis -no abdominal pain, benign abdominal exam, continue to follow (13) Anemia: Status: Acute Problem details: - normocytic - ddx: PMR, Anemia of chronic disease, atypica iron deficiency - obtain iron studies, FOBT was negative - HOLDING Eliquis as of 01/27 - follow symptoms closely, consider another steroid trial - 01/28 Hgb stable, FOBT negative. Restart Apixaban. Monitor. - 01/29 Apixaban restarted yesterday. Hgb stable. Iron deficiency anemia. May need further investigation as an outpatient. I am holding off on EGD here since it is not urgent and pneumonia and empyema may increase risk of adverse events during conscious sedation. Start oral iron. May need to consider iron infusions as outpatient. -01/30 Further Hgb drop, melanotic stool this am that is + for blood. NPO tonight. EGD in am (if they can do it, apixaban was held this morning), keep apixaban on hold, hold iron. If EGD negative, consider outpatient colonoscopy before restarting apixaban. - 01/31 possible bleeding duodenal ulcers, see below. Continue to hold apixaban. Hgb better today after yesterday's transfusion. Recheck in am. If stable, may go to rehab when bed available. - 02/01 stable now off apixaban. Continue oral iron, consider outpatient iron infusions (14) GI bleed: Status: Acute Problem details: - 01/30 repeat FOBT is positive today and stool was dark, melanotic appearing, as above - 01/31 EGD no obvious bleeding, does have 2 duodenal ulcers. Continue PPI, hold apixaban x 1 week (discussed risk/benefit of this with patient and his ), outpatient EGD and colonoscopy in 3 months - 02/01 Hgb stable now off apixaban, continue PPI, outpatient EGD/colonoscopy, hold apixaban for a week. (15) Non-insulin dependent diabetes mellitus: Status: Chronic Problem details: -A1C 9.7 01/03/25 -holding home medications given poor oral intake -glucose and insulin sliding scale ACHS -01/28 am glucose is within goal. Continue current ISS. Monitor. Metformin remains on hold. If Cr remains stable after restarting lisinopril and furosemide, will also restart metformin. - 01/30 BG more elevated than inpatient goal. WIll hold off on starting metformin since he will be NPO overnight for EGD. Start lantus. Continue ISS. - 01/31 BG still more elevated than goal, restart home metformin. (16) Peripheral neuropathy: Status: Chronic Problem details: - takes 1-2 Hydrocodone-Acetaminophen + Amitriptyline at HS (17) Pulmonary edema: Status: Resolved Problem details: -CT chest shows smooth interlobular septal thickening with a basal dependent predominance typical of pulmonary edema -monitor for fluid overload -home Lasix held given dehydration - 02/02 Lungs are clear, no hypoxia, several recent CXRs since this initial CT have not shown pulm edema, home furosemide restarted a few days ago, RESOLVED (18) Physical deconditioning: Status: Acute Problem details: -prior to 1st hospitalization, in home setting, refusing to use walker, leaning on to ambulate -not participating in SNF therapies -query mood disorder component -PT/OT consults complete - d/c to rehab today (19) Weakness: Status: Acute Problem details: - generalized. ddx includes metabolic abnormality, deconditioning, progression of malignancy, persistent vs new PNA - ESR elevated (consider PMR given new anemia), although does not have significant arthralgias. Notably treated with a week of prednisone in early December by PCP without improvement in symptoms - TSH mildly elevated, will add low-dose levothyroxine 01/27 - 01/28 patient states he's been participating in therapies today. Stressed the importance of consistently participating in therapies. Discussed goals of care, which he and his state include aggressive treatment for cancer. Discussed that he will have to participate in therapies and get stronger to be a candidate for treatment, if cancer is found. Patient and were comfortable with this plan and now enthusiastic about therapies. - 01/29 is present and encouraging patient to participate in therapies, and he is complying with that. Iron deficiency anemia may also be contributing to weakness. Start oral iron and consider iron infusions as outpatient. Continue therapies, rehab when bed available (20) Essential hypertension: Status: Chronic Problem details: - Continue furosemide and lisinopril - Discontinuing amlodipine due to extremity edema. He was previously on this and it was held during this hospitalization and lower extremity edema has improved. Blood pressures are variable, within acceptable range about half the time. DS: Summary Hospital Course Hospital Course: Per H&P: Chato He is a 69 year old male past medical history significant for diabetes mellitus, hypertension, CKD stage IIIB, squamous cell carcinoma of lung, active tobacco use, CVA with right-sided weakness is admitted to the hospital from the ED for ongoing weakness. Patient was admitted to this hospital 01/12-01/15/2025 with sepsis, pneumonia. Was treated with IV vancomycin and Zosyn, transitioned to cefdinir on day of discharge. Was transferred to [facility] in [place] for ongoing rehabilitation in setting of weakness. Was initially seen by PCP, Dr. Dorinda Washington on 01/03/2025 with report of 2 week history of generalized weakness, decrease in energy levels. Patient is seen this evening, lying in bed. is not present. He tells me he left [facility] this morning without completing his stay. His took him to see Dr. Johnson at the [facility] and was transferred to the ER via EMS. He reports ongoing weakness and fatigue. Did not like his stay at [facility]. He does not tell me why. His told the nurse that he was upset that he was not able to smoke. He tells me he did not eat or drink much at all. Picking only at his food and drinking very little fluids. He tells me he also refused to participate in therapies while he was there. Currently, he denies headache or dizziness. Denies recent chest pain or shortness of breath. Denies cough. Denies recent fevers. Denies abdominal pain, nausea, vomiting. Last bowel movement was yesterday and normal for him. Denies UTI symptoms. Chato had persistent low left chest pain. Hyperenhancement of right pleura around effusion seen on CT concerning for empyema. This was discussed with [facility] on 01/28/25, and medical management with 4 weeks total of antibiotics was recommended. Chato continued to make improvement clinically as sepsis resolved. Upon restarting apixaban for h/o stroke, his stool became melanotic and his Hgb dropped. EGD showed several duodenal ulcers, nothing acutely bleeding. He is now on oral iron, PPI, and will need colonoscopy and repeat EGD as an outpatient. IV iron could also be considered, if needed. Overall he is much improved from admission. Please see diagnoses above for full details. Time Spent with Patient Time attestation: Total time spent providing and/or coordinating discharge services: Today I spent 55 minutes seeing and discharging the patient, reviewing [facility] notes/diagnostics/labs, discussing the care plan with our care team that includes social work, PT/OT, pharmacy, RT, senior living and documenting my impressions and plan in the medical record. Exam Narrative: Exam Narrative: General: No acute distress. Awake, alert, oriented. No pallor. No jaundice. Oropharynx: Clear. Mucous membranes moist. Cardiovascular: Regular rate and rhythm. No murmurs, gallops, or rubs. Respiratory: Clear to auscultation bilaterally. Still diminished at the left base, although some improvement noted today. No wheezes or crackles. Abdomen: Bowel sounds present. Soft, nondistended, nontender. Extremities: LUE in lymphedema wrap. Trace bilateral lower extremity edema. Const: Vital Signs, click to edit/add: Vital Signs - 24 hr 02/01/25 11:00 02/01/25 15:00 02/01/25 15:00 Temperature 97.0 F L 97.1 F L Pulse Rate Pulse Rate [Left P ulse Oximeter] 91 90 90 Respiratory Rate 16 18 18 Blood Pressure [Le ft Arm] 118/86 132/89 Pulse Oximetry 94 96 Oxygen Delivery Me thod Room Air Room Air 02/01/25 15:00 02/01/25 19:00 02/01/25 20:15 Temperature 98.7 F Pulse Rate 92 Pulse Rate [Left P ulse Oximeter] 95 Respiratory Rate 20 20 Blood Pressure [Le ft Arm] 146/94 H Pulse Oximetry 95 Oxygen Delivery Me thod Room Air 02/01/25 23:00 02/01/25 23:30 02/02/25 06:00 Temperature 97.5 F L Pulse Rate Pulse Rate [Left P ulse Oximeter] 88 Respiratory Rate 18 18 20 Blood Pressure [Le ft Arm] 139/91 H Pulse Oximetry 96 Oxygen Delivery Me thod Room Air 02/02/25 07:00 02/02/25 07:00 Temperature 97.4 F L Pulse Rate Pulse Rate [Left P ulse Oximeter] 88 88 Respiratory Rate 18 18 Blood Pressure [Le ft Arm] 144/105 H Pulse Oximetry 96 Oxygen Delivery Me thod Room Air DS: Data Data Completed and Pending Completed studies during hospitalization: Ordering Physician: Eyad Garcia M.D. Date of Service: 01/26/25 Procedure(s): CT chest w con Accession Number(s): [id number] cc: Eyad Garcia M.D.; Dorinda Washington D.O.~ For Patients: As a result of the 21st Century Cures Act, medical imaging exams and procedure reports are released immediately into your electronic medical record. You may view this report before your referring provider. If you have questions, please contact your health care provider. INDICATION: Resolving effusion and ongoing weakness. COMPARISON: 01/14/2025, 01/12/2025, 12/07/2024, 11/12/2023 TECHNIQUE: CT chest with contrast. Multiplanar axial, coronal, and sagittal reformats are included. MIP images to improve detection of pulmonary nodules are included. Intravenous contrast: 75 mL Isovue 370 FINDINGS: Airway: Normal tracheobronchial tree. Lungs: Left lower lobe pneumonia again seen. The area of necrosis/cavitation is slightly smaller and measures about 2.5 x 2.5 cm with a small air-fluid level. No new areas of necrosis or cavitation. There is some smooth interlobular septal thickening with a basal dependent predominance typical of pulmonary edema. There is some mild basilar atelectasis. There are not any new consolidations. No significant emphysema. Pleura: There is a small left pleural effusion that is slightly loculated medially and inferiorly. There is also sub pulmonic extent. It measures 6.7 x 3.4 cm on series 2, image 78. This has decreased in size since the comparison exam. There is some associated pleural thickening and hyperenhancement around the effusion. No right effusion. No pneumothorax. Lymph nodes: No thoracic adenopathy. Mediastinum: No pneumomediastinum. No mass. Heart and great vessels: No pericardial effusion. Normal cardiac chamber size. Scattered atherosclerotic plaques. No aortic aneurysm. Mildly dilated branch pulmonary arteries. No pulmonary emboli seen. Chest wall: Normal. No masses. Upper abdomen: Severe diffuse hepatic steatosis. Cholelithiasis. There is a 1 centimeter low-density well-circumscribed likely cystic lesion in the pancreatic body on series 2, image 108. No change since 2023. Bones: No fractures. No focal bone lesions. IMPRESSION: 1. Improving left lower lobe pneumonia with a small cavity. This appears to overlap with a radiation treatment field for prior lung cancer. Recommend continued follow-up. 2. Decreasing size left pleural effusion. There is some partial loculation along the inferior posterior medial left hemithorax with additional subpulmonic extent. 3. Mild pulmonary edema. 4. Diffuse hepatic steatosis. 5. There is a 1 centimeter low-density likely cystic pancreatic lesion. These are best characterized with MR abdomen MRCP/pancreas without and with IV contrast. Please note that all CT scans at this facility use dose modulation, iterative reconstruction, and/or weight-based dosing when appropriate to reduce radiation dose to as low as reasonably achievable. Dictated by Marifer Ball MD @ 01/26/2025 4:01:10 PM (Electronically Signed) Ordering Physician: Renae Mendes M.D. Date of Service: 01/30/25 Procedure(s): XR chest 1V portable Accession Number(s): [id number] cc: Renae Mendes M.D.; Dorinda Washintgon D.O.~ For Patients: As a result of the Cures Act, medical imaging exams and procedure reports are released immediately into your electronic medical record. You may view this report before your referring provider. If you have questions, please contact your health care provider. INDICATION: Follow-up pleural effusion, pneumonia COMPARISON: 01/12/2025, 01/26/2025 TECHNIQUE: 1 view chest radiograph. FINDINGS: Devices: None Lung volumes are moderate. Persistent opacification in the left midlung. No pulmonary edema. Small left pleural effusion, much better appreciated on chest CT. No pneumothorax. No pneumomediastinum. Heart size is unchanged. Partially visualized right shoulder arthroplasty. IMPRESSION: Similar appearance of the left mid lung and effusion compared to prior radiographs. The effusion is better appreciated on CT. Dictated by Marifer Ball MD @ 01/30/2025 10:50:57 AM (Electronically Signed) Labs on day of discharge: Labs from last 24 hours 02/02/25 06:11 WBC 9.70 RBC 3.03 L Hgb 9.1 L Hct 26.8 L MCV 88 MCH 30 MCHC 34 Plt Count 341 Sodium 132 L Potassium 3.6 Chloride 104 Carbon Dioxide 28 Anion Gap 0 L BUN 8 Creatinine 1.0 Estimated Creat Clear 84.03 Estimated GFR 80 Glucose 168 H Calcium 8.1 L Magnesium 1.6 Total Bilirubin 0.3 AST 40 H ALT 36 Alkaline Phosphatase 239 H Total Protein 5.4 L Albumin 2.3 L Discharge Plan Discharge Disposition: er [facility] Date of Admission: 01/26/25 18:20 Attending Provider on Discharge: Renae Mendes Consulting Providers: Josselin Bull; Keven Melton; Nicole Alexander Primary Care Provider: Dorinda Washington Discharge Medications: New amoxicillin-pot clavulanate 875-125 mg Tablet 1 tab PO BIDWM 21 Days Qty: 42 0RF ferrous sulfate 325 mg (65 mg iron) Tablet 325 mg PO DAILYWM Qty: 30 0RF Lactobacillus acidophilus 0.5 mg (100 million cell) Tablet 100 mmu cells PO TIDWM Qty: 90 0RF potassium chloride 10 mEq Capsule, Extended Release 20 meq PO DAILYWM Qty: 30 0RF magnesium oxide 400 mg (241.3 mg magnesium) Tablet 400 mg PO BID Qty: 60 0RF levothyroxine 50 mcg Tablet 50 mcg PO DAILY@0700 Qty: 30 0RF omeprazole 20 mg Capsule,Delayed Release(Dr/Ec) 20 mg PO BID Qty: 60 0RF hydrocodone-acetaminophen 5-325 mg Tablet 1 tab PO BID PRN (Reason: Pain) Qty: 10 0RF Continued atorvastatin 80 mg tablet 80 mg PO HS allopurinol 100 mg tablet 100 mg PO DAILY amitriptyline 10 mg tablet 10 mg PO HS naloxone 4 mg/actuation spray,non-aerosol 1 spray INTRANASAL .PRN PRN Patient Comments: [NO ORIGINAL SIG] glipizide 10 mg tablet extended release 24hr 20 mg PO DAILY metformin 500 mg tablet 500 mg PO BID insulin aspart U-100 100 unit/mL (3 mL) Insulin Pen See Rx Instructions .ROUTE .COMPLEX Qty: 15 0RF Rx Instructions: Blood Glucose 150 or less No coverage Blood Glucose 151-200 1 unit Blood Glucose 201-250 2 units Blood Glucose 251-300 3 units Blood Glucose 301-350 4 units Blood Glucose 351 to 400 5 units Blood Glucose 401 and greater 6 units and recheck in 2 hours furosemide 20 mg tablet 20 mg PO DAILY 3 Days Qty: 3 0RF hydrocodone-acetaminophen 5-325 mg tablet 1 tab PO BID PRN (Reason: pain) Qty: 10 0RF lisinopril 10 mg tablet 10 mg PO DAILY polyethylene glycol 3350 17 gram/dose powder 17 g PO DAILY Januvia 50 mg tablet 50 mg PO DAILY Held Eliquis 5 mg tablet 5 mg PO BID Hold Instructions: Resume on 02/08/25. Holding due to recent GI bleed, may restart in a week and follow hemoglobin Discontinued amlodipine 10 mg tablet 10 mg PO DAILY Discharge Orders: Discharge Order (Routine); Ordered 02/02/25 Ordered By: Renae Mendes Additional Instructions: MRCP to f/u on pancreatic lesion EGD in 3 months for f/u irregular Zline, duodenal ulcers Diagnostic colonoscopy for anemia CXR in 1-2 weeks for f/u. CT chest with contrast in 3 weeks for pleural effusion/probable empyema. Lymphedema wrap to left upper extremity Activity Level: Up with assist and Other Activity Detail: per PT notes Discharge Diet: Regular Follow Up Appointments: Dorinda Washington DO [Primary Care Provider, [facility]] Forms: MyHealth Info Instructions Admit to: SNF Discharge Potential: Fair Length of Stay: <30 days Can use facility standing orders?: Yes Code Status: DNR/DNI Rehab Potential: Fair Therapy: Physical Therapy and Occupational Therapy Therapy Orders: Evaluate and Treat Oxygen: No Urinary Catheter: No Lab Orders: Hgb, BMP, Mg level, LFTs in 5 days, TSH in one month
--- NOTE | 2025-02-02 11:22 | PC.NURSE ---
End of shift report [id number]: Pleasant and cooperative with cares. Alert, oriented x 3, intermittent confusion to place/time. Pain to BLE reported, PRN norco administered with moderate relief of pain. Transfers with SBA with gait belt and walker. [place] to RUE, patient tolerating well. Nurse to nurse report to [facility] [place] given to nurse Nix at 1035am. Discharge paperwork reviewed with patient and . EMS non emergent transport here at 1110 and patient discharged via stretcher with EMS for transport to rehab.
== END 2025-02-02 11:20 | DRG 871 ==
LOC: ED 17:20 → MEDSURG 18:21
PROVIDERS: Family Medicine; Admitting Provider Physician Assistant; Emergency Provider Student in an Organized Health Care Education/Training Program; PCP Family Medicine; Visit Provider Physician Assistant
DX: A41.9 Sepsis, unspecified organism (principal); J18.9 Pneumonia, unspecified organism; J86.9 Pyothorax without fistula; K26.0 Acute duodenal ulcer with hemorrhage; N17.9 Acute kidney failure, unspecified; K92.1 Melena; I69.951 Hemiplegia and hemiparesis following unspecified cerebrovascular disease affecting right dominant side; C34.32 Malignant neoplasm of lower lobe, left bronchus or lung; R65.20 Severe sepsis without septic shock; D50.9 Iron deficiency anemia, unspecified; E86.0 Dehydration; I12.9 Hypertensive chronic kidney disease with stage 1 through stage 4 chronic kidney disease, or unspecified chronic kidney disease; N18.32 Chronic kidney disease, stage 3b; E11.22 Type 2 diabetes mellitus with diabetic chronic kidney disease; E11.42 Type 2 diabetes mellitus with diabetic 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; E87.6 Hypokalemia; E83.42 Hypomagnesemia; T47.1X5A Adverse effect of other antacids and anti-gastric-secretion drugs, initial encounter; K86.9 Disease of pancreas, unspecified; K76.0 Fatty (change of) liver, not elsewhere classified; F17.210 Nicotine dependence, cigarettes, uncomplicated; Z79.84 Long term (current) use of oral hypoglycemic drugs
CPT/HCPCS: 00731; 36415; 36430; 43235; 71045; 71260; 80053; 81001; 82270; 82330; 82607; 82728; 82803; 82962; 83540; 83550; 83605; 83735; 83880; 84145; 84443; 85018; 85025; 85027; 85610; 85651; 86140; 86618; 86850; 86900; 86901; 86922; 87040; 87081; 87338; 87631; 93005; 97110; 97116; 97162; 97165; 97530; 97535; 99100; 99285; A9270; J2543; J2704; J3375; J3475; J3480; J3490; J7030; P9016; Q9967

== ENCOUNTER 2025-02-02 11:06 | Outpatient (CLI) | payer MEDICARE, BC, SELFPAY | END 2025-02-02 11:07 | disposition home or self-care (01) | LOC: AMB 02-03 18:38 | PROVIDERS: PCP Family Medicine; Visit Provider Family Medicine | DX: R53.1 Weakness (principal); A41.9 Sepsis, unspecified organism; J18.9 Pneumonia, unspecified organism | CPT/HCPCS: A0425; A0428 ==